=== PATIENT | male | born 1935 | race Caucasian/White ===

== ENCOUNTER → 2016-02-26 | Outpatient (CLI) | payer OTHER ==
[~2016-02-26] MED LIST: FERR325T18 PO; FRS/40 PO; GLC/500 PO; GLIP10TA9 PO; LISI-461 PO; METO25TA56 PO; MULT-506 PO; POTA-335 PO; SIMV20TA2 PO
== END | disposition home or self-care (01) ==
LOC: C.LABSPEC 12:31
PROVIDERS: ATTEND Internal Medicine
DX: R19.4 Change in bowel habit (principal)

== ENCOUNTER → 2016-06-11 | Outpatient (CLI) | payer OTHER ==
[2016-06-11 19:00] LABS: BLOOD UREA NITROGEN 20 mg/dl (7-18); BUN/CREATININE RATIO 20.6 (10-20); CALCIUM 8.8 mg/dl (8.5-10.1); CARBON DIOXIDE 27 mmol/L (21-32); CHLORIDE 106 mmol/L (98-107); CHOLESTEROL 95 mg/dl (0-200); CREATININE 0.95 mg/dl (0.60-1.40); GLUCOSE 125 mg/dl (70-99); POTASSIUM 4.2 mmol/L (3.5-5.1); SODIUM 140 mmol/L (136-145); TRIGLYCERIDES 83 mg/dl (0-150); VERY LOW DENSITY LIPOPROT CALC 17 mg/dl
[2016-06-11 19:10] LABS: CHOLESTEROL/HDL RATIO 2.3; HDL CHOLESTEROL 42 mg/dl
[2016-06-12 07:42] LABS: ESTIMATED AVERAGE GLUCOSE 137 mg/dl; HA1C FLAG Normal (Normal)
== END | disposition home or self-care (01) ==
LOC: C.LABSPEC 14:38
PROVIDERS: ATTEND Internal Medicine
DX: I10 Essential (primary) hypertension (principal); E11.9 Type 2 diabetes mellitus without complications; I25.10 Atherosclerotic heart disease of native coronary artery without angina pectoris; E78.5 Hyperlipidemia, unspecified

== ENCOUNTER → 2016-10-10 | Outpatient (CLI) | payer OTHER ==
[2016-10-10 12:50] LABS: ESTIMATED AVERAGE GLUCOSE 134 mg/dl; HA1C FLAG Normal (Normal)
[2016-10-10 12:54] LABS: ALT/SGPT 27 U/L (12-78); AST/SGOT 13 U/L (15-37); BLOOD UREA NITROGEN 16 mg/dl (7-18); BUN/CREATININE RATIO 16.3 (10-20); CALCIUM 8.9 mg/dl (8.5-10.1); CARBON DIOXIDE 26 mmol/L (21-32); CHLORIDE 108 mmol/L (98-107); GLUCOSE 135 mg/dl (70-99); POTASSIUM 4.3 mmol/L (3.5-5.1); SODIUM 140 mmol/L (136-145)
[2016-10-10 12:57] LABS: ALB/GLOB RATIO 1.1 (0.9-2); ALKALINE PHOSPHATASE 73 U/L (45-117)
== END | disposition home or self-care (01) ==
LOC: C.LABSPEC 12:12
PROVIDERS: ATTEND Internal Medicine
DX: I25.10 Atherosclerotic heart disease of native coronary artery without angina pectoris (principal); I10 Essential (primary) hypertension; E11.9 Type 2 diabetes mellitus without complications

== ENCOUNTER → 2017-02-10 | Outpatient (CLI) | payer OTHER ==
[2017-02-10 12:55] LABS: BASO % 0.2 %; BASO ABS # 0.01 K/uL (0-0.2); COMPLETE YES; EOS % 1.9 %; HEMATOCRIT 36.5 % (42-52); IG% 0.4 %; LYMPH % 12.6 %; LYMPH ABS # 0.65 K/uL (1.2-3.4); MEAN CORPUSCULAR HEMOGLOBIN 31.7 pg (25-34); MEAN CORPUSCULAR HGB CONC 34.8 g/dl (32-36); MEAN PLATELET VOLUME 9.7 fL (7.4-10.4); MONO % 7.4 %; NEUT % 77.5 %; PLATELET COUNT 138 K/uL (130-400); RED BLOOD COUNT 4.01 M/uL (4.7-6.1); WHITE BLOOD COUNT 5.16 K/uL (4.8-10.8)
[2017-02-10 13:06] LABS: BLOOD UREA NITROGEN 17 mg/dl (7-18); BUN/CREATININE RATIO 16.3 (10-20); CARBON DIOXIDE 26 mmol/L (21-32); CHLORIDE 105 mmol/L (98-107); CREATININE 1.07 mg/dl (0.60-1.40); ESTIMATED AVERAGE GLUCOSE 134 mg/dl; GLUCOSE 110 mg/dl (70-99); HA1C FLAG Normal (Normal); POTASSIUM 3.8 mmol/L (3.5-5.1); SODIUM 138 mmol/L (136-145)
[2017-02-10 13:09] LABS: CHOLESTEROL 100 mg/dl (0-200); CHOLESTEROL/HDL RATIO 2.5; HDL CHOLESTEROL 40 mg/dl; TRIGLYCERIDES 132 mg/dl (0-150); VERY LOW DENSITY LIPOPROT CALC 26 mg/dl
[2017-02-10 14:27] LABS: RATIO 334.8 mcg/mg (0-30.0)
== END | disposition home or self-care (01) ==
LOC: C.LABSPEC 12:30
PROVIDERS: ATTEND Internal Medicine
DX: E11.9 Type 2 diabetes mellitus without complications (principal); I25.10 Atherosclerotic heart disease of native coronary artery without angina pectoris; I10 Essential (primary) hypertension; E78.5 Hyperlipidemia, unspecified

== ENCOUNTER → 2017-04-23 | Outpatient (CLI) | payer OTHER | END | disposition home or self-care (01) | LOC: C.PATHSPEC 14:55 | PROVIDERS: ATTEND Internal Medicine | DX: L57.0 Actinic keratosis (principal); C44.92 Squamous cell carcinoma of skin, unspecified ==

== ENCOUNTER → 2017-05-14 | Outpatient (CLI) | payer OTHER ==
[2017-05-21 17:38] LABS: FECAL OCCULT BLOOD #1 NEGATIVE (NEGATIVE); FECAL OCCULT BLOOD #2 NEGATIVE (NEGATIVE); FECAL OCCULT BLOOD #3 POSITIVE (NEGATIVE)
== END | disposition home or self-care (01) ==
LOC: C.LABSPEC 16:41
PROVIDERS: ATTEND Internal Medicine
DX: Z12.11 Encounter for screening for malignant neoplasm of colon (principal)

== ENCOUNTER → 2017-06-15 | Outpatient (CLI) | payer OTHER ==
[2017-06-15 13:31] LABS: ALBUMIN 3.8 gm/dl (3.4-5.0); ALT/SGPT 25 U/L (12-78); AST/SGOT 14 U/L (15-37); BLOOD UREA NITROGEN 25 mg/dl (7-18); CALCIUM 8.9 mg/dl (8.5-10.1); CARBON DIOXIDE 24 mmol/L (21-32); CREATININE 1.07 mg/dl (0.60-1.40); GLUCOSE 137 mg/dl (70-99); POTASSIUM 4.2 mmol/L (3.5-5.1); SODIUM 137 mmol/L (136-145)
[2017-06-15 13:34] LABS: ALKALINE PHOSPHATASE 71 U/L (45-117); CHOLESTEROL 100 mg/dl (0-200); HEMOGLOBIN A1C 6.6 % (4.5-5.6); LDL CHOLESTEROL (DIRECT) 56 mg/dl; TOTAL PROTEIN 7.4 gm/dl (6.4-8.2)
== END | disposition home or self-care (01) ==
LOC: C.LABSPEC 12:22
PROVIDERS: ATTEND Internal Medicine
DX: I25.10 Atherosclerotic heart disease of native coronary artery without angina pectoris (principal); E78.5 Hyperlipidemia, unspecified; E11.9 Type 2 diabetes mellitus without complications; I10 Essential (primary) hypertension

== ENCOUNTER → 2017-10-15 | Outpatient (CLI) | payer OTHER ==
[2017-10-15 13:47] LABS: HEMOGLOBIN A1C 6.4 % (4.5-5.6)
[2017-10-15 15:20] LABS: BLOOD UREA NITROGEN 21 mg/dl (7-18); CALCIUM 8.8 mg/dl (8.5-10.1); CARBON DIOXIDE 25 mmol/L (21-32); CREATININE 1.15 mg/dl (0.60-1.40); GLUCOSE 149 mg/dl (70-99); POTASSIUM 4.3 mmol/L (3.5-5.1); SODIUM 137 mmol/L (136-145)
== END | disposition home or self-care (01) ==
LOC: C.LABSPEC 12:58
PROVIDERS: ATTEND Internal Medicine
DX: E11.9 Type 2 diabetes mellitus without complications (principal); I10 Essential (primary) hypertension; I25.10 Atherosclerotic heart disease of native coronary artery without angina pectoris

== ENCOUNTER 2021-01-17 16:58 | Observation (INO) ==
[2021-01-17] MEDS ORDERED: SODIUM CHLORIDE 0.9% 1000ML 250 ML IV ONE (17:28)
--- NOTE | 2021-01-17 17:34 | Emergency Department Note ---
Impression & Plan SOB (shortness of breath), Bilateral shoulder pain, Anemia, CAD (coronary atherosclerotic disease) ED Provider Note NAME: CHERYL DURHAM AGE: 85 SEX: M : 1935 ARRIVES VIA: Walk-In INFORMANT: [Patient][family] ED PROVIDER(S): [Shon Bradshaw MD] CHIEF COMPLAINT: Shortness of breath HISTORY OF PRESENT ILLNESS: The patient is an 85-year-old male with a history of coronary disease. He had a CABG x3 in 2007. The patient states that in the last month, maybe longer, he has had episodes with exertion where he gets short of breath, some ache across the shoulders that is a 5/10, he feels dizzy. When he rests, in a minute or so, the symptoms resolve. Today, he had an episode while helping around with cleanup after Thanksgiving dinner. He was brought to the hospital. He has no symptoms currently. The patient does believe that his episodes are increasing in number. He denies cough or congestion or fever. He is on diuretics for leg edema. He is taking his medications as prescribed. REVIEW OF SYSTEMS: See HPI for pertinent positives and negatives. A total of ten systems were reviewed and were otherwise negative. PMHx/PSHx: See Below SOCIAL HISTORY: See Below. PHYSICAL EXAM: GENERAL: Patient is in no acute distress. HEENT: No acute trauma, normocephalic atraumatic, mucous membranes moist, no nasal congestion, no scleral icterus. NECK: No stridor, no adenopathy, no meningismus, trachea is midline. LUNGS: Clear to auscultation bilaterally, no wheeze, no rhonchi, breath sounds equal. HEART: 4/6 systolic murmur, slightly irregular rhythm, normal rate. ABDOMEN: Soft, nontender, bowel sounds positive, no hernias, no peritonitis. EXTREMITIES: No cyanosis. There is bilateral pedal edema, worse on the right. No obvious acute lower extremity trauma. NEUROLOGIC: Oriented x 3, no acute motor or sensory deficits, no focal weakness. SKIN: No rash, no jaundice, no diaphoresis. Rectal: Brown stool, heme-negative. DIFFERENTIAL DIAGNOSIS: Cardiac ischemia, aortic dissection, pulmonary embolism, pneumothorax, pneumonia, pericarditis, myocarditis, esophageal rupture, GERD, cholecystitis, pancreatitis, musculoskeletal, as well as other pathologies. EMERGENCY DEPARTMENT COURSE/PROCEDURES: ECG: Indication was chest pain and shortness of breath. The ECG shows a sinus rhythm with a first-degree AV block. The rate is 81. PVCs are noted. There is a right bundle branch block. LVH is present. No ST elevation. There are inverted T waves in the lateral leads. The QTc is 490. Compared to an ECG from 28 December 2015, there is no significant change. Continuous Cardiac Monitoring: An order was placed for continuous cardiac monitoring. The monitor shows a rate of 72 with sinus rhythm with a first- degree AV block. MEDICAL DECISION MAKING: There is no leukocytosis. The patient does have an anemia with a hemoglobin of 9.4. A rectal exam was performed, the stool was brown and heme-negative. There is a slightly low platelet count at 114. No coagulopathy. Creatinine is high at 2.41. His creatinine has been running high lately. Glucose was somewhat elevated at 276. No worrisome liver enzyme elevation. No evidence for pancreatitis. ECG shows a sinus rhythm with a first-degree AV block. There is a right bundle branch block. His ECG looks similar to previous ECGs. Cardiac enzyme testing x2 was performed. The second troponin was elevated consistent with cardiac injury. Chest film showed some cardiomegaly, no CHF or pneumothorax. The patient received IV saline, 500 cc. He was given oral aspirin. The patient presents with some shortness of breath with exertion accompanied by some shoulder discomfort and lightheadedness. His symptoms resolved with rest. He has had these episodes ongoing for the last month. The patient was found to be anemic with an elevated troponin. Given his history, a hospital stay and further cardiac work-up is warranted. I did discussed the case with cardiology. Heparin was not felt indicated at this point as the patient was symptom-free. I spoke to the patient and case liner. The on-call hospitalist was consulted. Past Med/Surg History Medical History Coronary artery disease Diabetes Hypercholesterolemia Hypertension Subdural hematoma Surgical History (Updated 11/24/17 @ 00:36 by Tigre Dexter) History of heart bypass surgery Status post evacuation of subdural hematoma Social History Smoking Status: Former smoker Tobacco Type: Cigarettes Hx Alcohol Use: No Preferred Language: [place] marital status: current occupational status: employed and retired Feels Safe at Home: Yes Allergies Allergies Allergy/AdvReac Type Severity Reaction Status Date / Time No Known Allergies Allergy Mild NONE Verified 12/26/15 06:14 Home Meds Home Medications Medication Instructions Recorded Confirmed amlodipine 10 mg tablet 10 mg PO DAILY 01/17/21 01/17/21 finasteride 5 mg tablet 5 mg PO DAILY 01/17/21 01/17/21 furosemide 40 mg tablet 60 mg PO DAILY 01/17/21 01/17/21 glipizide 10 mg tablet 20 mg PO BID 01/17/21 01/17/21 lisinopril 10 mg tablet 10 mg PO BID 01/17/21 01/17/21 metformin 500 mg tablet 500 mg PO BID 01/17/21 01/17/21 metoprolol succinate 50 mg 50 mg PO DAILY 01/17/21 01/17/21 tablet,extended release 24 hr simvastatin 20 mg tablet 20 mg PO DAILY 01/17/21 01/17/21 spironolactone 25 mg tablet 25 mg PO DAILY 01/17/21 01/17/21 tamsulosin 0.4 mg capsule 0.4 mg PO DAILY 01/17/21 01/17/21 Results & Data (ED) Vital Signs Vital Signs - 24 hr 01/17/21 17:10 01/17/21 17:35 01/17/21 17:36 Temperature 36.6 C 36.9 C Temperature Source Oral Oral Pulse Rate 85 Pulse Rate [Apical] 81 Pulse Rate from SpO2 Sensor Pulse Rhythm Pulse Rhythm [Apical] Regular Pulse Strength [Apical] Normal Respiratory Rate 18 18 Respiratory Effort / Characteristics Non-Labored Spontaneous Respiratory Depth Normal Respiratory Pattern Regular Blood Pressure 95/54 L Blood Pressure [Right Arm] 99/52 L Blood Pressure Mean 67 Blood Pressure Mean [Right Arm] 67 Blood Pressure Position [Right Arm] Semi-fowlers Pulse Oximetry 100 99 99 Oxygen Delivery Method Room Air Room Air Room Air Oxygen Flow Rate 0 Sepsis Recent Fever Within 48 Hours No Sepsis New/Unexplained Change in Mental Status No Sepsis Action Taken by Nursing No Action Required 01/17/21 17:38 01/17/21 17:49 01/17/21 17:50 Temperature Temperature Source Pulse Rate 72 79 96 H Pulse Rate [Apical] Pulse Rate from SpO2 Sensor 81 76 Pulse Rhythm Regular Pulse Rhythm [Apical] Pulse Strength [Apical] Respiratory Rate 18 24 24 Respiratory Effort / Characteristics Respiratory Depth Respiratory Pattern Blood Pressure Blood Pressure [Right Arm] Blood Pressure Mean Blood Pressure Mean [Right Arm] Blood Pressure Position [Right Arm] Pulse Oximetry 99 99 99 Oxygen Delivery Method Room Air Oxygen Flow Rate 0 Sepsis Recent Fever Within 48 Hours Sepsis New/Unexplained Change in Mental Status Sepsis Action Taken by Nursing 01/17/21 18:00 01/17/21 18:10 01/17/21 18:20 Temperature Temperature Source Pulse Rate 83 80 78 Pulse Rate [Apical] Pulse Rate from SpO2 Sensor 82 83 74 Pulse Rhythm Pulse Rhythm [Apical] Pulse Strength [Apical] Respiratory Rate 24 23 24 Respiratory Effort / Characteristics Respiratory Depth Respiratory Pattern Blood Pressure 102/53 L Blood Pressure [Right Arm] Blood Pressure Mean 69 Blood Pressure Mean [Right Arm] Blood Pressure Position [Right Arm] Pulse Oximetry 99 98 99 Oxygen Delivery Method Oxygen Flow Rate Sepsis Recent Fever Within 48 Hours Sepsis New/Unexplained Change in Mental Status Sepsis Action Taken by Nursing 01/17/21 18:30 01/17/21 18:40 01/17/21 18:50 Temperature Temperature Source Pulse Rate 78 73 80 Pulse Rate [Apical] Pulse Rate from SpO2 Sensor 78 79 78 Pulse Rhythm Pulse Rhythm [Apical] Pulse Strength [Apical] Respiratory Rate 24 19 23 Respiratory Effort / Characteristics Respiratory Depth Respiratory Pattern Blood Pressure 126/62 Blood Pressure [Right Arm] Blood Pressure Mean 83 Blood Pressure Mean [Right Arm] Blood Pressure Position [Right Arm] Pulse Oximetry 98 98 98 Oxygen Delivery Method Oxygen Flow Rate Sepsis Recent Fever Within 48 Hours Sepsis New/Unexplained Change in Mental Status Sepsis Action Taken by Nursing 01/17/21 19:00 01/17/21 19:10 01/17/21 19:20 Temperature Temperature Source Pulse Rate 81 79 73 Pulse Rate [Apical] 82 Pulse Rate from SpO2 Sensor 82 77 77 Pulse Rhythm Pulse Rhythm [Apical] Regular Pulse Strength [Apical] Normal Respiratory Rate 22 22 21 Respiratory Effort / Characteristics Non-Labored Spontaneous Respiratory Depth Normal Respiratory Pattern Regular Blood Pressure 140/67 Blood Pressure [Right Arm] 140/67 Blood Pressure Mean 91 Blood Pressure Mean [Right Arm] 91 Blood Pressure Position [Right Arm] Semi-fowlers Pulse Oximetry 98 99 98 Oxygen Delivery Method Room Air Oxygen Flow Rate Sepsis Recent Fever Within 48 Hours Sepsis New/Unexplained Change in Mental Status Sepsis Action Taken by Nursing 01/17/21 19:30 01/17/21 19:40 01/17/21 19:50 Temperature Temperature Source Pulse Rate 82 87 84 Pulse Rate [Apical] Pulse Rate from SpO2 Sensor 80 82 82 Pulse Rhythm Pulse Rhythm [Apical] Pulse Strength [Apical] Respiratory Rate 21 25 H 26 H Respiratory Effort / Characteristics Respiratory Depth Respiratory Pattern Blood Pressure 125/73 Blood Pressure [Right Arm] Blood Pressure Mean 90 Blood Pressure Mean [Right Arm] Blood Pressure Position [Right Arm] Pulse Oximetry 98 97 98 Oxygen Delivery Method Oxygen Flow Rate Sepsis Recent Fever Within 48 Hours Sepsis New/Unexplained Change in Mental Status Sepsis Action Taken by Nursing 01/17/21 20:00 01/17/21 20:11 01/17/21 20:20 Temperature Temperature Source Pulse Rate 84 90 84 Pulse Rate [Apical] Pulse Rate from SpO2 Sensor 81 93 H 91 H Pulse Rhythm Pulse Rhythm [Apical] Pulse Strength [Apical] Respiratory Rate 22 22 14 Respiratory Effort / Characteristics Respiratory Depth Respiratory Pattern Blood Pressure 126/67 Blood Pressure [Right Arm] Blood Pressure Mean 86 Blood Pressure Mean [Right Arm] Blood Pressure Position [Right Arm] Pulse Oximetry 97 100 97 Oxygen Delivery Method Oxygen Flow Rate Sepsis Recent Fever Within 48 Hours Sepsis New/Unexplained Change in Mental Status Sepsis Action Taken by Nursing 01/17/21 20:30 01/17/21 20:40 01/17/21 20:50 Temperature Temperature Source Pulse Rate 83 84 83 Pulse Rate [Apical] Pulse Rate from SpO2 Sensor 82 87 84 Pulse Rhythm Pulse Rhythm [Apical] Pulse Strength [Apical] Respiratory Rate 21 19 19 Respiratory Effort / Characteristics Respiratory Depth Respiratory Pattern Blood Pressure 119/66 Blood Pressure [Right Arm] Blood Pressure Mean 83 Blood Pressure Mean [Right Arm] Blood Pressure Position [Right Arm] Pulse Oximetry 96 95 95 Oxygen Delivery Method Oxygen Flow Rate Sepsis Recent Fever Within 48 Hours Sepsis New/Unexplained Change in Mental Status Sepsis Action Taken by Nursing 01/17/21 21:00 01/17/21 21:10 01/17/21 21:20 Temperature Temperature Source Pulse Rate 86 85 81 Pulse Rate [Apical] Pulse Rate from SpO2 Sensor 81 83 83 Pulse Rhythm Pulse Rhythm [Apical] Pulse Strength [Apical] Respiratory Rate 22 16 17 Respiratory Effort / Characteristics Respiratory Depth Respiratory Pattern Blood Pressure 125/78 Blood Pressure [Right Arm] Blood Pressure Mean 93 Blood Pressure Mean [Right Arm] Blood Pressure Position [Right Arm] Pulse Oximetry 95 95 94 Oxygen Delivery Method Oxygen Flow Rate Sepsis Recent Fever Within 48 Hours Sepsis New/Unexplained Change in Mental Status Sepsis Action Taken by Nursing 01/17/21 21:30 01/17/21 21:40 01/17/21 21:50 Temperature Temperature Source Pulse Rate 85 85 86 Pulse Rate [Apical] Pulse Rate from SpO2 Sensor 89 83 81 Pulse Rhythm Pulse Rhythm [Apical] Pulse Strength [Apical] Respiratory Rate 18 20 19 Respiratory Effort / Characteristics Respiratory Depth Respiratory Pattern Blood Pressure 131/61 Blood Pressure [Right Arm] Blood Pressure Mean 84 Blood Pressure Mean [Right Arm] Blood Pressure Position [Right Arm] Pulse Oximetry 94 96 97 Oxygen Delivery Method Oxygen Flow Rate Sepsis Recent Fever Within 48 Hours Sepsis New/Unexplained Change in Mental Status Sepsis Action Taken by Nursing 01/17/21 22:00 01/17/21 22:10 01/17/21 22:20 Temperature Temperature Source Pulse Rate 84 86 85 Pulse Rate [Apical] Pulse Rate from SpO2 Sensor 83 84 83 Pulse Rhythm Pulse Rhythm [Apical] Pulse Strength [Apical] Respiratory Rate 18 22 16 Respiratory Effort / Characteristics Respiratory Depth Respiratory Pattern Blood Pressure 139/75 Blood Pressure [Right Arm] Blood Pressure Mean 96 Blood Pressure Mean [Right Arm] Blood Pressure Position [Right Arm] Pulse Oximetry 95 96 95 Oxygen Delivery Method Oxygen Flow Rate Sepsis Recent Fever Within 48 Hours Sepsis New/Unexplained Change in Mental Status Sepsis Action Taken by Nursing 01/17/21 22:30 01/17/21 22:40 01/17/21 22:50 Temperature Temperature Source Pulse Rate 85 85 84 Pulse Rate [Apical] Pulse Rate from SpO2 Sensor 86 84 85 Pulse Rhythm Pulse Rhythm [Apical] Pulse Strength [Apical] Respiratory Rate 20 17 19 Respiratory Effort / Characteristics Respiratory Depth Respiratory Pattern Blood Pressure 145/79 H Blood Pressure [Right Arm] Blood Pressure Mean 101 Blood Pressure Mean [Right Arm] Blood Pressure Position [Right Arm] Pulse Oximetry 98 96 98 Oxygen Delivery Method Oxygen Flow Rate Sepsis Recent Fever Within 48 Hours Sepsis New/Unexplained Change in Mental Status Sepsis Action Taken by Nursing 01/17/21 23:00 01/17/21 23:10 01/17/21 23:20 Temperature Temperature Source Pulse Rate 85 86 83 Pulse Rate [Apical] Pulse Rate from SpO2 Sensor 84 83 84 Pulse Rhythm Pulse Rhythm [Apical] Pulse Strength [Apical] Respiratory Rate 20 25 H 26 H Respiratory Effort / Characteristics Respiratory Depth Respiratory Pattern Blood Pressure 133/89 Blood Pressure [Right Arm] Blood Pressure Mean 103 Blood Pressure Mean [Right Arm] Blood Pressure Position [Right Arm] Pulse Oximetry 97 97 97 Oxygen Delivery Method Oxygen Flow Rate Sepsis Recent Fever Within 48 Hours Sepsis New/Unexplained Change in Mental Status Sepsis Action Taken by Nursing 01/17/21 23:30 01/17/21 23:40 01/17/21 23:50 Temperature Temperature Source Pulse Rate 83 87 93 H Pulse Rate [Apical] Pulse Rate from SpO2 Sensor 83 85 86 Pulse Rhythm Pulse Rhythm [Apical] Pulse Strength [Apical] Respiratory Rate 23 22 9 L Respiratory Effort / Characteristics Respiratory Depth Respiratory Pattern Blood Pressure 158/92 H Blood Pressure [Right Arm] Blood Pressure Mean 114 Blood Pressure Mean [Right Arm] Blood Pressure Position [Right Arm] Pulse Oximetry 97 97 96 Oxygen Delivery Method Oxygen Flow Rate Sepsis Recent Fever Within 48 Hours Sepsis New/Unexplained Change in Mental Status Sepsis Action Taken by Nursing 01/18/21 00:00 Temperature Temperature Source Pulse Rate 82 Pulse Rate [Apical] Pulse Rate from SpO2 Sensor 83 Pulse Rhythm Pulse Rhythm [Apical] Pulse Strength [Apical] Respiratory Rate 18 Respiratory Effort / Characteristics Respiratory Depth Respiratory Pattern Blood Pressure 140/79 Blood Pressure [Right Arm] Blood Pressure Mean 99 Blood Pressure Mean [Right Arm] Blood Pressure Position [Right Arm] Pulse Oximetry 95 Oxygen Delivery Method Oxygen Flow Rate Sepsis Recent Fever Within 48 Hours Sepsis New/Unexplained Change in Mental Status Sepsis Action Taken by [facility] Medications Current Medication List: was personally reviewed by me Laboratory Data Attestation: I reviewed the patient's lab results. Result diagrams: 01/17/21 18:08 01/17/21 18:08 Lab Results 01/17/21 01/17/21 01/17/21 Range/Units 18:08 18:08 18:08 WBC 5.44 (4.8-10.8) K/uL RBC 2.93 L (4.7-6.1) M/uL Hgb 9.4 L (14.0-18.0) g/dL Hct 27.8 L (42-52) % MCV 94.9 (80-100) fL MCH 32.1 (25-34) pg MCHC 33.8 (32-36) g/dL RDW Std Deviation 48.0 H (36.4-46.3) fL RDW Coeff of Jose A 14.0 (11.5-14.5) % Plt Count 114 L (130-400) K/uL MPV 9.7 (7.4-10.4) fL Immature Gran % (Auto) 0.6 % Neut % (Auto) 84.7 % Lymph % (Auto) 9.4 % Fergus % (Auto) 4.2 % Eos % (Auto) 0.9 % Baso % (Auto) 0.2 % Neut # (Auto) 4.61 (1.4-6.5) K/uL Lymph # (Auto) 0.51 L (1.2-3.4) K/uL Fergus # (Auto) 0.23 (0.11-0.59) K/uL Eos # (Auto) 0.05 (0-0.5) K/uL Baso # (Auto) 0.01 (0-0.2) K/uL Immature Gran # (Auto) 0.03 H (0.00-0.02) K/uL PT 10.4 (9.0-12.0) Seconds INR 1.0 (0.9-1.1) APTT 26.2 (21.0-31.0) Seconds PTT Ratio 1.0 Sodium 139 (136-145) mmol/L Potassium 4.9 (3.5-5.1) mmol/L Chloride 109 H (98-107) mmol/L Carbon Dioxide 21 (21-32) mmol/L Anion Gap 9.0 (3-11) BUN 45 H (7-18) mg/dl Creatinine 2.41 H (0.6-1.4) mg/dl Est Cr Clr Drug Dosing 24.1 ml/min Est GFR ( Amer) 27.3 ml/min Est GFR (Non-Af Amer) 23.6 ml/min BUN/Creatinine Ratio 18.8 (10-20) Glucose 276 H (70-99) mg/dl Calcium 7.6 L (8.5-10.1) mg/dl Magnesium 1.8 (1.8-2.4) mg/dl Total Bilirubin 0.8 (0.2-1) mg/dl AST 7 L (15-37) U/L ALT 15 (12-78) U/L Alkaline Phosphatase 75 (45-117) U/L Troponin I < 0.015 (0-0.045) ng/ml Total Protein 6.7 (6.4-8.2) gm/dl Albumin 3.1 L (3.4-5.0) gm/dl Globulin 3.6 (2.5-4.0) gm/dl Albumin/Globulin Ratio 0.9 (0.9-2) Lipase 131 (73-393) U/L SARS-CoV-2, RNA, NAAT (NEGATIVE) 01/17/21 01/17/21 Range/Units 21:45 22:45 WBC (4.8-10.8) K/uL RBC (4.7-6.1) M/uL Hgb (14.0-18.0) g/dL Hct (42-52) % MCV (80-100) fL MCH (25-34) pg MCHC (32-36) g/dL RDW Std Deviation (36.4-46.3) fL RDW Coeff of Jose A (11.5-14.5) % Plt Count (130-400) K/uL MPV (7.4-10.4) fL Immature Gran % (Auto) % Neut % (Auto) % Lymph % (Auto) % Fergus % (Auto) % Eos % (Auto) % Baso % (Auto) % Neut # (Auto) (1.4-6.5) K/uL Lymph # (Auto) (1.2-3.4) K/uL Fergus # (Auto) (0.11-0.59) K/uL Eos # (Auto) (0-0.5) K/uL Baso # (Auto) (0-0.2) K/uL Immature Gran # (Auto) (0.00-0.02) K/uL PT (9.0-12.0) Seconds INR (0.9-1.1) APTT (21.0-31.0) Seconds PTT Ratio Sodium (136-145) mmol/L Potassium (3.5-5.1) mmol/L Chloride (98-107) mmol/L Carbon Dioxide (21-32) mmol/L Anion Gap (3-11) BUN (7-18) mg/dl Creatinine (0.6-1.4) mg/dl Est Cr Clr Drug Dosing ml/min Est GFR ( Amer) ml/min Est GFR (Non-Af Amer) ml/min BUN/Creatinine Ratio (10-20) Glucose (70-99) mg/dl Calcium (8.5-10.1) mg/dl Magnesium (1.8-2.4) mg/dl Total Bilirubin (0.2-1) mg/dl AST (15-37) U/L ALT (12-78) U/L Alkaline Phosphatase (45-117) U/L Troponin I 0.072 H* (0-0.045) ng/ml Total Protein (6.4-8.2) gm/dl Albumin (3.4-5.0) gm/dl Globulin (2.5-4.0) gm/dl Albumin/Globulin Ratio (0.9-2) Lipase (73-393) U/L SARS-CoV-2, RNA, NAAT NEGATIVE (NEGATIVE) Administered Medications Discontinued Medications Aspirin (Aspirin Chew 324 Mg) 324 mg PO NOW STA Stop: 01/17/21 22:18 Last Admin: 01/17/21 22:45 Dose: 324 mg Documented by: [id number] Sodium Chloride (Nss 1000ml) 250 mls @ 999 mls/hr IV .Q16M ONE Stop: 01/17/21 17:43 Last Infusion: 01/17/21 19:07 Dose: 0 mls/hr Documented by: [id number] Admin: 01/17/21 18:13 Dose: 999 mls/hr Documented by: [id number] Sodium Chloride (Nss) 250 mls @ 999 mls/hr IV .Q16M ONE Stop: 01/17/21 19:00 Last Admin: 01/17/21 19:03 Dose: 999 mls/hr Documented by: [id number] Imaging Data Radiologist's Impression: Chest X-Ray 01/17/21 17:28 XR chest 1V portable CLINICAL HISTORY: Atypical chest pain. COMPARISON STUDY: Chest radiograph December 28, 2015 point FINDINGS: Lung volumes are normal. There is no pneumothorax or pleural effusion. Cardiomegaly is noted. Subtle interstitial prominence is likely chronic. There is no consolidation. There is no convincing evidence for pulmonary edema. IMPRESSION: No acute cardiopulmonary findings. ACT 112: Negative or not required by law. Electronically signed by: Dominick Helms M.D. 01/17/2021 5:52 PM Discharge Plan Visit Data Chief Complaint: Shortness of Breath/Dyspnea Stated Complaint: HARD TIME BREATHING - DIZZY - ED Provider: Shon Bradshaw Discharge Problem: SOB (shortness of breath), Bilateral shoulder pain, Anemia, CAD (coronary atherosclerotic disease) Patient Disposition: Admitted As Inpatient Condition: Fair Forms Stand Alone Forms: [facility] Prescriptions Prescriptions: No Action furosemide 40 mg tablet 60 mg PO DAILY RF: 0 metformin 500 mg tablet 500 mg PO BID RF: 0 metoprolol succinate 50 mg tablet extended release 24 hr 50 mg PO DAILY RF: 0 glipizide 10 mg tablet 20 mg PO BID RF: 0 spironolactone 25 mg tablet 25 mg PO DAILY RF: 0 tamsulosin 0.4 mg capsule 0.4 mg PO DAILY RF: 0 amlodipine 10 mg tablet 10 mg PO DAILY RF: 0 simvastatin 20 mg tablet 20 mg PO DAILY RF: 0 lisinopril 10 mg tablet 10 mg PO BID RF: 0 finasteride 5 mg tablet 5 mg PO DAILY RF: 0 Referrals Referrals: Robert Quinones MD [Primary Care Provider] -
--- NOTE | 2021-01-17 17:54 | XRay Report ---
XR chest 1V portable CLINICAL HISTORY: Atypical chest pain. COMPARISON STUDY: Chest radiograph December 28, 2015 point FINDINGS: Lung volumes are normal. There is no pneumothorax or pleural effusion. Cardiomegaly is note d. Subtle interstitial prominence is likely chronic. There is no consolidation. There is no convincin g evidence for pulmonary edema. IMPRESSION: No acute cardiopulmonary findings. ACT 112: Negative or not required by law. Electronically signed by: Dominick Helms M.D. 01/17/2021 5:52 PM
[2021-01-17 18:21] LABS: Basophils # (auto) 0.01 K/uL (0-0.2); Basophils % (auto) 0.2 %; Eosinophils # (auto) 0.05 K/uL (0-0.5); Eosinophils % (auto) 0.9 %; Hematocrit (blood only) 27.8 % (42-52); Hemoglobin 9.4 g/dL (14.0-18.0); Immature Granulocytes # (auto) 0.03 K/uL (0.00-0.02); Immature Granulocytes % (auto) 0.6 %; Lymphocytes # (auto) 0.51 K/uL (1.2-3.4); Lymphocytes % (auto) 9.4 %; Mean Corpuscular Hemoglobin 32.1 pg (25-34); Mean Corpuscular Hgb Conc 33.8 g/dL (32-36); Mean Corpuscular Volume 94.9 fL (80-100); Mean Platelet Volume 9.7 fL (7.4-10.4); Monocytes # (auto) 0.23 K/uL (0.11-0.59); Monocytes % (auto) 4.2 %; Neutrophils # (auto) 4.61 K/uL (1.4-6.5); Neutrophils % (auto) 84.7 %; Platelet Count 114 K/uL (130-400); Red Blood Count 2.93 M/uL (4.7-6.1); White Blood Count 5.44 K/uL (4.8-10.8)
[2021-01-17 18:32] LABS: Partial Thromboplastin Time 26.2 Seconds (21.0-31.0); Prothrombin Time 10.4 Seconds (9.0-12.0)
[2021-01-17 18:40] LABS: Alanine Aminotransferase 15 U/L (12-78); Albumin Level 3.1 gm/dl (3.4-5.0); Aspartate Aminotransferase 7 U/L (15-37); BUN Creatinine Ratio 18.8 (10-20); Blood Urea Nitrogen 45 mg/dl (7-18); Calcium 7.6 mg/dl (8.5-10.1); Carbon Dioxide 21 mmol/L (21-32); Chloride 109 mmol/L (98-107); Creatinine Clr Calc Pharmacy 24.1 ml/min; Est GFR (African American) 27.3 ml/min; Est GFR (Non-African American) 23.6 ml/min; Glucose 276 mg/dl (70-99); Lipase 131 U/L (73-393); Magnesium 1.8 mg/dl (1.8-2.4); Potassium 4.9 mmol/L (3.5-5.1); Sodium 139 mmol/L (136-145)
[2021-01-17 18:45] LABS: Albumin Globulin Ratio 0.9 (0.9-2); Alkaline Phosphatase 75 U/L (45-117); Bilirubin,Total 0.8 mg/dl (0.2-1); Globulin 3.6 gm/dl (2.5-4.0); Total Protein 6.7 gm/dl (6.4-8.2); Troponin I < 0.015 ng/ml (0-0.045)
[2021-01-17] MEDS ORDERED: SODIUM CHLORIDE 0.9% 250 ML IV ONE (18:45)
[2021-01-17] MEDS ORDERED: ASPIRIN CHEW 324 MG PO STA (22:17)
--- NOTE | 2021-01-17 23:50 | History & Physical Report ---
Date of Service January 17, 2021 Assessment & Plan (1) CAD (coronary atherosclerotic disease): Plan: Elevated troponin/CAD/hypertension/status post CABG/bilateral shoulder pain- The patient will be admitted to telemetry for serial cardiac enzymes, serial EKG's, cardiac rhythm monitoring and a 2-D echocardiogram with Dopplers. Troponin 0.072 upon admission Continue amlodipine, and metoprolol succinate (2) Elevated troponin I level: Plan: See above (3) Hypertension: Plan: See above (4) Hypercholesterolemia: Plan: Continue simvastatin Check a fasting lipid panel (5) Diabetes: Plan: Hold glipizide and Metformin Place on Accu-Cheks before meals and at bedtime with NovoLog coverage per scale Check hemoglobin A1c (6) H/O heart bypass surgery: Plan: See above (7) Acute kidney injury: Plan: Creatinine 2.41 upon admission, with base 1.33 on 07/02. More recent after increased diuretics in outpatient setting with 2.48-2.46 Will hold lisinopril and spironolactone at this time. Received 500 cc normal saline in the ED, and will be given in the 500 cc at 80 m ils per hour upon admission repeat laboratories in a.m. May consider decreasing amlodipine from 10 to 5 mg if affecting lower extremity edema (8) BPH w urinary obs/LUTS: Plan: Continue tamsulosin (9) Lower extremity edema: Plan: Patient has asymmetric lower extremity size, right larger diameter than left. This has been investigated in the past with negative venous Dopplers on 07/12/2020 (10) Bilateral shoulder pain: Plan: See above History of Present Illness Chief Complaint: The patient presents to the emergency department with complaint of intermittent pain across both shoulders, relieved by rest, over the past month, that occurred while cleaning up after Thanksgiving dinner, and was brought to the ED for as sessment Primary Care Provider: Robert Quinones MD The patient is an 85-year-old male with a past medical history including CAD, hypertension, status post CABG, BPH with LUTS, diabetes mellitus, hyperlipidemia and right greater than left lower extremity edema. He is brought to the emergency department after having a recurrence of bilateral shoulder pain with associated dizziness. Abnormal laboratories: Hemoglobin 9.4, hematocrit 27.8, platelets 114, creatinine 2.41, glucose 276, BUN 45, albumin 3.1 and troponin 0.072. EKG shows normal sinus rhythm with right bundle branch block and left axis deviation Chest x-ray shows no acute findings In the emergency department patient received NSS 250 mils x2, and aspirin 324 mg Allergies Allergy/AdvReac Type Severity Reaction Status Date / Time No Known Allergies Allergy Mild NONE Verified 12/26/15 06:14 Home Medications Medication Instructions Recorded Confirmed Type amlodipine 10 mg tablet 10 mg PO DAILY 01/17/21 01/17/21 History finasteride 5 mg tablet 5 mg PO DAILY 01/17/21 01/17/21 History furosemide 40 mg tablet 60 mg PO DAILY 01/17/21 01/17/21 History glipizide 10 mg tablet 20 mg PO BID 01/17/21 01/17/21 History lisinopril 10 mg tablet 10 mg PO BID 01/17/21 01/17/21 History metformin 500 mg tablet 500 mg PO BID 01/17/21 01/17/21 History metoprolol succinate 50 mg 50 mg PO DAILY 01/17/21 01/17/21 History tablet,extended release 24 hr simvastatin 20 mg tablet 20 mg PO DAILY 01/17/21 01/17/21 History spironolactone 25 mg tablet 25 mg PO DAILY 01/17/21 01/17/21 History tamsulosin 0.4 mg capsule 0.4 mg PO DAILY 01/17/21 01/17/21 History Past Med/Surg History Medical History (Updated 01/18/21 @ 02:09 by Jaison Aguirre MD) BPH w urinary obs/LUTS Coronary artery disease Diabetes Hypercholesterolemia Hypertension Lower extremity edema Subdural hematoma Surgical History (Updated 11/24/17 @ 00:36 by Tigre Dexter) History of heart bypass surgery Status post evacuation of subdural hematoma Social History Smoking Status: Former smoker Tobacco Type: Cigarettes Hx Alcohol Use: No Preferred Language: [place] marital status: current occupational status: employed and retired Feels Safe at Home: Yes Review of Systems Review of Systems: The patient denies chest pain, palpitations, cough, sore throat, fevers, chills, sweats, nausea, vomiting, diarrhea , constipation, abdominal pain, pelvic pain, blood in urine or stool, dysuria, urinary frequency or urgency, lightheadedness, dizziness, headache, memory loss, loss of consciousness, rash, abnormal bruising or bleeding, focal weakness, numbness or tingling in arms or legs, generalized arthralgias or myalgias, back or neck pain, or night sweats. The review of systems is otherwise negative other than for that already noted above, and at least 10 systems have been reviewed. Physical Exam Physical Exam: The patient is awake, alert and oriented 3, well developed and well nourished, normocephalic and atraumatic, lying in bed and in no acute distress. HEENT--PERRL, EOMI, mucous membranes and oropharynx normal. Neck--supple. No JVD. No bruits. Thyroid normal, trachea midline, no adenopathy. Heart--normal S1 and S2. No murmurs, rubs or gallops. Lungs--clear bilaterally, no respiratory distress, no accessory muscle use. Abdomen--normal bowel sounds and soft. Nontender. Nondistended. Obese Extremities--no cyanosis or clubbing. 1+ right lower extremity pretibial edema. Left lower extremity with trace pretibial pitting edema. Right lower extremity below-knee 1 1/2 times the size of left Dermatologic--normal skin turgor, normal color, no abnormal lymph nodes, no rash. Neurologic--cranial nerves II through XII grossly intact. Rheumatologic--normal range of motion. Psychiatric--normal affect. Results & Data Results & Data ([facility]) Vital Signs (Past 12 Hours) Vital Signs Temp Pulse Pulse Resp BP BP Pulse Ox 01/17/21 22:50 84 19 98 01/17/21 22:40 85 17 96 01/17/21 22:30 85 20 145/79 H 98 01/17/21 22:20 85 16 95 01/17/21 22:10 86 22 96 01/17/21 22:00 84 18 139/75 95 01/17/21 21:50 86 19 97 01/17/21 21:40 85 20 96 01/17/21 21:30 85 18 131/61 94 01/17/21 21:20 81 17 94 01/17/21 21:10 85 16 95 01/17/21 21:00 86 22 125/78 95 01/17/21 20:50 83 19 95 01/17/21 20:40 84 19 95 01/17/21 20:30 83 21 119/66 96 01/17/21 20:20 84 14 97 01/17/21 20:11 90 22 100 01/17/21 20:00 84 22 126/67 97 01/17/21 19:50 84 26 H 98 01/17/21 19:40 87 25 H 97 01/17/21 19:30 82 21 125/73 98 01/17/21 19:20 73 21 98 01/17/21 19:10 79 22 99 01/17/21 19:00 81 82 22 140/67 140/67 98 01/17/21 18:50 80 23 98 01/17/21 18:40 73 19 98 01/17/21 18:30 78 24 126/62 98 01/17/21 18:20 78 24 99 01/17/21 18:10 80 23 98 01/17/21 18:00 83 24 102/53 L 99 01/17/21 17:50 96 H 24 99 01/17/21 17:49 79 24 99 01/17/21 17:38 72 18 99 01/17/21 17:36 36.9 C 81 18 99/52 L 99 01/17/21 17:35 99 01/17/21 17:10 36.6 C 85 18 95/54 L 100 Laboratory Results Laboratory Results WBC 5.44 K/uL (4.8-10.8) 01/17/21 18:08 RBC 2.93 M/uL (4.7-6.1) L 01/17/21 18:08 Hgb 9.4 g/dL (14.0-18.0) L 01/17/21 18:08 Hct 27.8 % (42-52) L 01/17/21 18:08 MCV 94.9 fL (80-100) 01/17/21 18:08 MCH 32.1 pg (25-34) 01/17/21 18:08 MCHC 33.8 g/dL (32-36) 01/17/21 18:08 RDW Std Deviation 48.0 fL (36.4-46.3) H 01/17/21 18:08 RDW Coeff of Jose A 14.0 % (11.5-14.5) 01/17/21 18:08 Plt Count 114 K/uL (130-400) L 01/17/21 18:08 MPV 9.7 fL (7.4-10.4) 01/17/21 18:08 Immature Gran % (Auto) 0.6 % 01/17/21 18:08 Neut % (Auto) 84.7 % 01/17/21 18:08 Lymph % (Auto) 9.4 % 01/17/21 18:08 [place] % (Auto) 4.2 % 01/17/21 18:08 Eos % (Auto) 0.9 % 01/17/21 18:08 Baso % (Auto) 0.2 % 01/17/21 18:08 Neut # (Auto) 4.61 K/uL (1.4-6.5) 01/17/21 18:08 Lymph # (Auto) 0.51 K/uL (1.2-3.4) L 01/17/21 18:08 [place] # (Auto) 0.23 K/uL (0.11-0.59) 01/17/21 18:08 Eos # (Auto) 0.05 K/uL (0-0.5) 01/17/21 18:08 Baso # (Auto) 0.01 K/uL (0-0.2) 01/17/21 18:08 Immature Gran # (Auto) 0.03 K/uL (0.00-0.02) H 01/17/21 18:08 PT 10.4 Seconds (9.0-12.0) 01/17/21 18:08 INR 1.0 (0.9-1.1) 01/17/21 18:08 APTT 26.2 Seconds (21.0-31.0) 01/17/21 18:08 PTT Ratio 1.0 01/17/21 18:08 Sodium 139 mmol/L (136-145) 01/17/21 18:08 Potassium 4.9 mmol/L (3.5-5.1) 01/17/21 18:08 Chloride 109 mmol/L (98-107) H 01/17/21 18:08 Carbon Dioxide 21 mmol/L (21-32) 01/17/21 18:08 Anion Gap 9.0 (3-11) 01/17/21 18:08 BUN 45 mg/dl (7-18) H 01/17/21 18:08 Creatinine 2.41 mg/dl (0.6-1.4) H 01/17/21 18:08 Est Cr Clr Drug Dosing 24.1 ml/min 01/17/21 18:08 Est GFR ( Amer) 27.3 ml/min 01/17/21 18:08 Est GFR (Non-Af Amer) 23.6 ml/min 01/17/21 18:08 BUN/Creatinine Ratio 18.8 (10-20) 01/17/21 18:08 Glucose 276 mg/dl (70-99) H 01/17/21 18:08 Calcium 7.6 mg/dl (8.5-10.1) L 01/17/21 18:08 Magnesium 1.8 mg/dl (1.8-2.4) 01/17/21 18:08 Total Bilirubin 0.8 mg/dl (0.2-1) 01/17/21 18:08 AST 7 U/L (15-37) L 01/17/21 18:08 ALT 15 U/L (12-78) 01/17/21 18:08 Alkaline Phosphatase 75 U/L (45-117) 01/17/21 18:08 Troponin I 0.072 ng/ml (0-0.045) H* 01/17/21 21:45 Total Protein 6.7 gm/dl (6.4-8.2) 01/17/21 18:08 Albumin 3.1 gm/dl (3.4-5.0) L 01/17/21 18:08 Globulin 3.6 gm/dl (2.5-4.0) 01/17/21 18:08 Albumin/Globulin Ratio 0.9 (0.9-2) 01/17/21 18:08 Lipase 131 U/L (73-393) 01/17/21 18:08 SARS-CoV-2, RNA, NAAT NEGATIVE (NEGATIVE) 01/17/21 22:45 Impressions Chest X-Ray 01/17/21 17:28 XR chest 1V portable CLINICAL HISTORY: Atypical chest pain. COMPARISON STUDY: Chest radiograph December 28, 2015 point FINDINGS: Lung volumes are normal. There is no pneumothorax or pleural effusion. Cardiomegaly is noted. Subtle interstitial prominence is likely chronic. There is no consolidation. There is no convincing evidence for pulmonary edema. IMPRESSION: No acute cardiopulmonary findings. ACT 112: Negative or not required by law. Electronically signed by: Dominick Helms M.D. 01/17/2021 5:52 PM Code Status & VTE Plan Code Status Full code VTE Prophylaxis Plan VTE Prophylaxis will be ordered: Yes PG Care Time/CCT Total # of Minutes Spent Total Time Spent with Patient: Total time spent is greater than 50% in coordination of care (as documented) at patient's floor/unit and/or counseling patient: Coding Level of Care Code INT OBSERVATION CARE 70M LVL 3 Diagnoses CAD (coronary atherosclerotic disease) I25.810 Associated angina: unspecified whether angina present Coronary Disease-Associated Artery/Lesion type: bypass graft [place] vs. transplanted heart: [place] heart Elevated troponin I level R77.8 Hypertension I10 Hypercholesterolemia E78.00 Diabetes E11.9 H/O heart bypass surgery Z95.1 BPH w urinary obs/LUTS N40.1; N13.8 Lower extremity edema R60.0 Bilateral shoulder pain M25.511; M25.512 Chronicity: acute Acute kidney injury N17.9 (1) CAD (coronary atherosclerotic disease) Associated angina: unspecified whether angina present Coronary Disease- Associated Artery/Lesion type: bypass graft [place] vs. transplanted heart: [place] heart Qualified Code(s): I25.810 - Atherosclerosis of coronary artery bypass graft(s) without angina pectoris (2) Bilateral shoulder pain Chronicity: acute Qualified Code(s): M25.511 - Pain in right shoulder; M25.512 - Pain in left shoulder
[2021-01-18] MEDS ORDERED: NITROGLYCERIN SL 0.4 MG/TAB TAB SL PRN (02:08)
[2021-01-18] MEDS ORDERED: ACETAMINOPHEN 325 MG TAB PO PRN (02:08)
[2021-01-18] MEDS ORDERED: SODIUM CHLORIDE 0.9% 500 ML IV SCH (02:08)
[2021-01-18] MEDS ORDERED: GLUCOSE 10 TABS/TUBE PO PRN (02:08)
[2021-01-18] MEDS ORDERED: ONDANSETRON INJ 2 MG/ML 2 ML VIAL IV PRN (02:08)
[2021-01-18] MEDS ORDERED: CARBOHYDRATES FOR HYPOGLYCEMIA PO PRN (02:08)
[2021-01-18] MEDS ORDERED: GLUCOSE 40% GEL 15 GM TUBE PO PRN (02:08)
[2021-01-18] MEDS ORDERED: GLUCAGON FOR INJ 1 MG VIAL SQ PRN (02:08)
[2021-01-18] MEDS ORDERED: DEXTROSE 50% 50 ML SYRINGE IV PRN (02:08)
[2021-01-18] MEDS: INSULIN ASPART 100 UNITS/ML 3 ML PEN SC SCH ×5 (03:44→21:56)
[2021-01-18 06:30] LABS: Basophils # (auto) 0.01 K/uL (0-0.2); Basophils % (auto) 0.2 %; Eosinophils # (auto) 0.09 K/uL (0-0.5); Eosinophils % (auto) 2.2 %; Hemoglobin 9.3 g/dL (14.0-18.0); Immature Granulocytes # (auto) 0.02 K/uL (0.00-0.02); Immature Granulocytes % (auto) 0.5 %; Lymphocytes # (auto) 0.69 K/uL (1.2-3.4); Lymphocytes % (auto) 16.9 %; Mean Corpuscular Hemoglobin 32.1 pg (25-34); Mean Corpuscular Hgb Conc 34.4 g/dL (32-36); Mean Corpuscular Volume 93.1 fL (80-100); Mean Platelet Volume 9.3 fL (7.4-10.4); Monocytes # (auto) 0.29 K/uL (0.11-0.59); Monocytes % (auto) 7.1 %; Neutrophils # (auto) 2.99 K/uL (1.4-6.5); Neutrophils % (auto) 73.1 %; Platelet Count 122 K/uL (130-400); RDW Coefficient of Variation 13.9 % (11.5-14.5); RDW Standard Deviation 47.1 fL (36.4-46.3); White Blood Count 4.09 K/uL (4.8-10.8)
[2021-01-18 07:07] LABS: Albumin Level 2.9 gm/dl (3.4-5.0); BUN Creatinine Ratio 21.1 (10-20); Calcium 8.3 mg/dl (8.5-10.1); Creatinine Clr Calc Pharmacy 36.8 ml/min; Est GFR (African American) 45.6 ml/min; Est GFR (Non-African American) 39.3 ml/min; Magnesium 2.1 mg/dl (1.8-2.4); Potassium 4.2 mmol/L (3.5-5.1)
[2021-01-18 07:12] LABS: Estimated Average Glucose 192 mg/dl; Hemoglobin A1C 8.3 % (4.5-5.6)
--- NOTE | 2021-01-18 07:39 | Electrocardiogram Report ---
Test Reason : Blood Pressure : / mmHG Vent. Rate : 081 BPM Atrial Rate : 081 BPM P-R Int : 280 ms QRS Dur : 114 ms QT Int : 422 ms P-R-T Axes : 062 -51 092 degrees QTc Int : 490 ms Sinus rhythm with 1st degree A-V block Left axis deviation Incomplete right bundle branch block Voltage criteria for left ventricular hypertrophy Anterior infarct , age undetermined Abnormal ECG Confirmed by Cali Rodriguez ([id number]) on 01/18/2021 7:39:28 AM Referred By: REFERRED SELF Confirmed By:Fernando Rodriguez
[2021-01-18 07:42] LABS: Albumin Globulin Ratio 0.8 (0.9-2); Globulin 3.5 gm/dl (2.5-4.0); Total Protein 6.4 gm/dl (6.4-8.2); Troponin I 0.216 ng/ml (0-0.045)
[2021-01-18] MEDS: amLODIPine BESYLATE 5 MG TAB PO SCH (09:22)
[2021-01-18] MEDS: FINASTERIDE 5 MG TAB PO SCH (09:23)
[2021-01-18] MEDS: FUROSEMIDE 20 MG TAB PO SCH (09:23)
[2021-01-18] MEDS: METOPROLOL SUCC 50MG EXT REL TAB PO SCH (09:24)
[2021-01-18] MEDS: SIMVASTATIN 20 MG TAB PO SCH (09:25)
[2021-01-18] MEDS: TAMSULOSIN HCL 0.4 MG CAP PO SCH (09:27)
--- NOTE | 2021-01-18 09:49 | Hospitalist Progress Note ---
Date of Service January 18, 2021 Assessment & Plan (1) CAD (coronary atherosclerotic disease): Plan: History of CABG 2007- remains on BB, low dose zocor, BREANA, and diuetics- He was not on ASA he reports he used to be but stopped it around the time of his rectal bleeding/colon cancer workup The patient will be admitted to telemetry for serial cardiac enzymes, serial EKG's, cardiac rhythm monitoring and a 2-D echocardiogram with Dopplers. Troponin 0.072 upon admission--->0.216--> 0.118 remains symptom free at this time- - ASA 81 mg daily started - ECHO and Troponin trends - NPO until ECHO and Troponin completed- discussed with cards. NPO after midnight Continue amlodipine, and metoprolol succinate - Will hydrate overnight with LR 80ml/hr for one liter- in preparation for possible cardiac angiography (2) Dyspnea: Plan: Dyspnea with exertion - DDX- valve abnormality- systolic murmur - vs. cardiac ischemia or both - ECHO as above - Appreciate cardiology assitance (3) Elevated troponin I level: Plan: See above rule out NSTEMI - Has peaked and downtrending- So likley type II NSTEMI secondary to dyspnea and stress - As above Valve vs. myocardial ischemia (4) Hypertension: Plan: See above (5) Hypercholesterolemia: Plan: Continue simvastatin Check a fasting lipid panel (6) Diabetes: Plan: Hold glipizide and Metformin Place on Accu-Cheks before meals and at bedtime with NovoLog coverage per scale Check hemoglobin A1c (7) H/O heart bypass surgery: Plan: See above- 2018 (8) Acute kidney injury: Plan: Creatinine 2.41 upon admission, with base 1.33 on 07/02. More recent after increased diuretics in outpatient setting with 2.48-2.46 - IMPROVEMENT RN return to baseline this morning 1.58- continue to hold BREANA and diuretics for today Received 500 cc normal saline in the ED, and will be given in the 500 cc at 80 mils per hour upon admission repeat laboratories in a.m. May consider decreasing amlodipine from 10 to 5 mg if affecting lower extremity edema (9) BPH w urinary obs/LUTS: Plan: Continue tamsulosin (10) Lower extremity edema: Plan: Patient has asymmetric lower extremity size, right larger diameter than left. This has been investigated in the past with negative venous Dopplers on 07/12/2020 (11) Bilateral shoulder pain: Plan: See above- ? anginal equivalent associated with dyspnea and activity - Continue workup and risk stratification from cardiac standpoint. 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 I agree with the plan above. Subjective 85 YOM HD #1 for evaluation of shortness of breath and bilateral shoulder pain. The patient has a history of CABG in 2007 following a failed stress test during the work up for his colon cancer at that time. Patient does not routinely follow with cardiology. The patient shortness of breath and shoulder pain occurred yesterday while he was trying to get stuff organized for the arrival of his daughter to go see his at [place] (she just broke her hip). It occurred while he was up and moving around and it lasted until he came to the EMD. The pain has not reoccurred. The patient endorses that he has had this pain prior over the past couple of months and it is always associated with some dyspnea. He has been more active at home since his is at [place]- he is going up and down the steps more and carrying more things around the house. He does note that he is dyspneic up and down the steps. He has had 2 sets of Troponin I since admission .072-.216. His ECG remains with 1st degree AV, RBBB with LVH and left axis- with some mild st and t wave changes latero-anterior. His morning ECG is being obtained at this time. Plans: ECHO, Troponin I at noon, Cardiology consult- will make NPO at this time until next troponin returns and ECHO is done. Review of Systems Review of Systems: REVIEW OF SYSTEMS: Constitutional: No fever, sweats or chills Eyes: No diplopia, no worsening or blurred vision ENT: normal hearing, no trouble swallowing Respiratory: (+) dyspnea with exertion, NO cough, sputum, Cardiovascular: (+) shoulder pain bilateral- none since admission, No palpitations Abdomen: No pain, nausea, vomiting, diarrhea or constipation Musculoskeletal: No joint pain, calf pain, swelling Neurologic: No weakness, numbness/tingling, or balance problems Psychiatric: No anxiety or depression Skin: Biopsy site at top of head and ears by derm Physical Exam Physical Exam: PHYSICAL EXAM: General: awake, alert, no apparent distress Head: Normocephalic, atraumatic ENT: PERRL, EOMI, no pharyngeal exudate, mucous membranes moist Neuro: AAO x 3, speech clear and appropriate, strength intact bilaterally 5/5, sensation intact and equal all extremities and dermatomes, no pronator drift Chest: equal rise and fall of the chest, no accessory muscle use, no heaves or thrills, Clear to auscultation, on room air, Cardiac: Regular rate and rhythm, telemetry reviewed-1st degree AV with PACs, skin warm dry, cap refill <3 seconds, peripheral pulses +2 no JVD, Grade II-III systolic murmur RSB mild LSB grade I, +1 edema to lower extremities GI: NABS x 4 quadrants, soft, nontender to palpation, no rebound, guarding or tenderness : Spontaneously voiding, no pain, no CVA tenderness, Extremities: Normal inspection, no peripheral edema or erythema, calfs nontender to palpation Psych: Normal mood and affect Skin: dressing to top of head from skin biopsy site Results & Data Results & Data ([facility]) Vital Signs (Past 12 Hours) Vital Signs Temp Pulse Pulse Resp BP BP Pulse Ox 01/18/21 05:13 73 18 129/70 95 01/18/21 02:17 01/18/21 02:16 36.7 C 82 14 136/61 95 01/18/21 01:50 82 17 95 01/18/21 01:40 81 18 94 01/18/21 01:30 76 19 122/69 97 01/18/21 01:20 75 19 94 01/18/21 01:10 99 H 24 98 01/18/21 01:00 87 27 H 01/18/21 00:50 83 18 95 01/18/21 00:40 77 16 94 01/18/21 00:30 83 21 136/94 96 01/18/21 00:20 85 19 94 01/18/21 00:10 77 16 95 01/18/21 00:00 82 18 140/79 95 01/17/21 23:50 93 H 9 L 96 01/17/21 23:40 87 22 97 01/17/21 23:30 83 23 158/92 H 97 01/17/21 23:20 83 26 H 97 01/17/21 23:10 86 25 H 97 01/17/21 23:00 85 20 133/89 97 01/17/21 22:50 84 19 98 01/17/21 22:40 85 17 96 01/17/21 22:30 85 20 145/79 H 98 01/17/21 22:20 85 16 95 01/17/21 22:10 86 22 96 01/17/21 22:00 84 18 139/75 95 01/17/21 21:50 86 19 97 01/17/21 21:40 85 20 96 Pulse Ox 01/18/21 05:13 01/18/21 02:17 95 01/18/21 02:16 01/18/21 01:50 01/18/21 01:40 01/18/21 01:30 01/18/21 01:20 01/18/21 01:10 01/18/21 01:00 01/18/21 00:50 01/18/21 00:40 01/18/21 00:30 01/18/21 00:20 01/18/21 00:10 01/18/21 00:00 01/17/21 23:50 01/17/21 23:40 01/17/21 23:30 01/17/21 23:20 01/17/21 23:10 01/17/21 23:00 01/17/21 22:50 01/17/21 22:40 01/17/21 22:30 01/17/21 22:20 01/17/21 22:10 01/17/21 22:00 01/17/21 21:50 01/17/21 21:40 Laboratory Results Abnormal lab results 01/17/21 01/17/21 01/17/21 Range/Units 18:08 18:08 21:45 WBC (4.8-10.8) K/uL RBC 2.93 L (4.7-6.1) M/uL Hgb 9.4 L (14.0-18.0) g/dL Hct 27.8 L (42-52) % RDW Std Deviation 48.0 H (36.4-46.3) fL Plt Count 114 L (130-400) K/uL Lymph # (Auto) 0.51 L (1.2-3.4) K/uL Immature Gran # (Auto) 0.03 H (0.00-0.02) K/uL Chloride 109 H (98-107) mmol/L BUN 45 H (7-18) mg/dl Creatinine 2.41 H (0.6-1.4) mg/dl BUN/Creatinine Ratio (10-20) Glucose 276 H (70-99) mg/dl POC Glucose (70-99) mg/dl Hemoglobin A1c (4.5-5.6) % Calcium 7.6 L (8.5-10.1) mg/dl AST 7 L (15-37) U/L Troponin I 0.072 H* (0-0.045) ng/ml Albumin 3.1 L (3.4-5.0) gm/dl Albumin/Globulin Ratio (0.9-2) 01/18/21 01/18/21 01/18/21 Range/Units 02:50 06:11 06:11 WBC 4.09 L (4.8-10.8) K/uL RBC 2.90 L (4.7-6.1) M/uL Hgb 9.3 L (14.0-18.0) g/dL Hct 27.0 L (42-52) % RDW Std Deviation 47.1 H (36.4-46.3) fL Plt Count 122 L (130-400) K/uL Lymph # (Auto) 0.69 L (1.2-3.4) K/uL Immature Gran # (Auto) (0.00-0.02) K/uL Chloride 113 H (98-107) mmol/L BUN 33 H (7-18) mg/dl Creatinine 1.58 H D (0.6-1.4) mg/dl BUN/Creatinine Ratio 21.1 H (10-20) Glucose 101 H (70-99) mg/dl POC Glucose 106 H (70-99) mg/dl Hemoglobin A1c (4.5-5.6) % Calcium 8.3 L (8.5-10.1) mg/dl AST (15-37) U/L Troponin I 0.216 H* (0-0.045) ng/ml Albumin 2.9 L (3.4-5.0) gm/dl Albumin/Globulin Ratio 0.8 L (0.9-2) 01/18/21 Range/Units 06:11 WBC (4.8-10.8) K/uL RBC (4.7-6.1) M/uL Hgb (14.0-18.0) g/dL Hct (42-52) % RDW Std Deviation (36.4-46.3) fL Plt Count (130-400) K/uL Lymph # (Auto) (1.2-3.4) K/uL Immature Gran # (Auto) (0.00-0.02) K/uL Chloride (98-107) mmol/L BUN (7-18) mg/dl Creatinine (0.6-1.4) mg/dl BUN/Creatinine Ratio (10-20) Glucose (70-99) mg/dl POC Glucose (70-99) mg/dl Hemoglobin A1c 8.3 H (4.5-5.6) % Calcium (8.5-10.1) mg/dl AST (15-37) U/L Troponin I (0-0.045) ng/ml Albumin (3.4-5.0) gm/dl Albumin/Globulin Ratio (0.9-2) ECG Additional Comments: AM ECG pending- PG Care Time/CCT Total # of Minutes Spent Total Time Spent with Patient: Total time spent is greater than 50% in coordination of care (as documented) at patient's floor/unit and/or counseling patient: Coding Level of Care Code 85667 Subseq Hosp Care Lvl 3 Diagnoses CAD (coronary atherosclerotic disease) I25.810 Associated angina: unspecified whether angina present Coronary Disease-Associated Artery/Lesion type: bypass graft [place] vs. transplanted heart: [place] heart Elevated troponin I level R77.8 Hypertension I10 Hypercholesterolemia E78.00 Diabetes E11.9 H/O heart bypass surgery Z95.1 Acute kidney injury N17.9 BPH w urinary obs/LUTS N40.1; N13.8 Lower extremity edema R60.0 Bilateral shoulder pain M25.511; M25.512 Chronicity: acute Dyspnea R06.00 (1) CAD (coronary atherosclerotic disease) Associated angina: unspecified whether angina present Coronary Disease- Associated Artery/Lesion type: bypass graft [place] vs. transplanted heart: [place] heart Qualified Code(s): I25.810 - Atherosclerosis of coronary artery bypass graft(s) without angina pectoris (2) Bilateral shoulder pain Chronicity: acute Qualified Code(s): M25.511 - Pain in right shoulder; M25.512 - Pain in left shoulder
[2021-01-18] MEDS: ASPIRIN 81 MG ECTAB PO SCH (11:54)
--- NOTE | 2021-01-18 12:59 | Cardiology Consultation ---
Date of Consultation January 18, 2021 Assessment & Plan (1) Chest pain: (2) CAD (coronary atherosclerotic disease): (3) Aortic stenosis: (4) Mitral regurgitation: 1. Chest pain: His symptoms are exertional in nature and highly suggestive of coronary insufficiency. However, he is also noted to have severe aortic stenosis which could produce identical symptoms. He will likely need some form of intervention, possibly a valve replacement. In order to facilitate any valve procedure he will also need evaluation of his coronaries and bypass grafts. As his symptoms occur exclusively with exertion I do not feel he requires systemic heparinization at this point. 2. Coronary artery disease: Status post surgical revascularization with CLEARY to LAD and saphenous vein graft to OM. He reports having 3 lesions noted at the time of his initial angiography 2 of which likely required bypass. It is very possible he has residual right coronary disease. I did discuss with him the recommendation of coronary angiography. His renal function appears to be compromised. I think he is best served by prehydration. We will plan on proceeding electively. 3. Valvular heart disease: Newly discovered aortic stenosis and mitral valve disease. It is very possible as aortic valve disease is causing symptoms. Once we get a sense of his coronary anatomy we can devise a more definitive valve intervention. He does not appear to be a good candidate for an open procedure or a double valve procedure. 4. Anemia: He does have an element of mild anemia which appears to have been progressive over few months. He does have a history of colon cancer. This could exacerbate any symptoms of aortic stenosis or obstructive coronary disease. Do not think he requires immediate transfusion. History of Present Illness Reason for Consultation: Chest pain Requesting Physician: Selam Attending Physician: Nilton Hsu MD History of Present Illness The patient is an 85-year-old gentleman with history of coronary disease having previously undergone surgical revascularization in 2007. The patient states that over the past few weeks he has been experiencing symptoms of exertional shoulder and back discomfort associated with some mild dyspnea. These episodes do not appear to happen with routine activity but with at ascending stairs or more vigorous activity he will develop symptoms that last for approximately 10-15 minutes before resolution. He does not appear to have other associated symptoms such as dizziness or lightheadedness. He did not report any symptoms of palpitations. He has not had symptoms at rest. He has not had more prolonged symptoms. He cannot recall having symptoms in the past even leading up to his bypass surgery in 2007. Patient states that his initial cardiac evaluation 2007 was prompted by abnormal stress test leading up to a colectomy for colon cancer. He did not recall symptoms of chest discomfort, back discomfort her exertional dyspnea at that time. 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 He has not report other constitutional symptoms recently. No fevers or chills. No coughing. No change in bowel habits. He does have some lower extremity edema on the right leg which he says is chronic. No history of syncope. Allergies Allergy/AdvReac Type Severity Reaction Status Date / Time No Known Allergies Allergy Mild NONE Verified 12/26/15 06:14 Home Medications Medication Instructions Recorded Confirmed Type amlodipine 10 mg tablet 10 mg PO DAILY 01/17/21 01/17/21 History finasteride 5 mg tablet 5 mg PO DAILY 01/17/21 01/17/21 History furosemide 40 mg tablet 60 mg PO DAILY 01/17/21 01/17/21 History glipizide 10 mg tablet 20 mg PO BID 01/17/21 01/17/21 History lisinopril 10 mg tablet 10 mg PO BID 01/17/21 01/17/21 History metformin 500 mg tablet 500 mg PO BID 01/17/21 01/17/21 History metoprolol succinate 50 mg 50 mg PO DAILY 01/17/21 01/17/21 History tablet,extended release 24 hr simvastatin 20 mg tablet 20 mg PO DAILY 01/17/21 01/17/21 History spironolactone 25 mg tablet 25 mg PO DAILY 01/17/21 01/17/21 History tamsulosin 0.4 mg capsule 0.4 mg PO DAILY 01/17/21 01/17/21 History Patient History Medical History (Updated 01/18/21 @ 13:06 by Vish Rodriguez MD) BPH w urinary obs/LUTS Coronary artery disease Diabetes Hypercholesterolemia Hypertension Lower extremity edema Subdural hematoma Surgical History (Updated 11/24/17 @ 00:36 by Tigre Dexter) History of heart bypass surgery Status post evacuation of subdural hematoma Social History Smoking Status: Former smoker Tobacco Type: Cigarettes Hx Alcohol Use: No Preferred Language: Romanian marital status: current occupational status: employed and retired Feels Safe at Home: Yes Review of Systems Review of Systems: Per HPI Physical Exam Physical Exam: The patient is alert and oriented. Mood and affect appeared normal. He answered all questions appropriately. HEENT: Pupils are equal and reactive to light and accommodation. Extraocular movements are intact. The sclerae are anicteric. Neuro: Cranial nerves intact Lungs: Clear to auscultation bilaterally. He has good air movement without use of accessory muscles. No rales wheezes or rhonchi. Cardiac: Heart demonstrates a regular rate and rhythm with occasional ectopy Normal S1 and S2. High-pitched systolic ejection murmur. Pulses: The patient has palpable radial pulses bilaterally that are equal in intensity Extremities: There was no evidence of hypoperfusion. There is no cyanosis or clubbing. Moderate edema involving the right lower extremity in the pretibial area. No edema on the left. Skin: I did not appreciate any rashes on examination today. Results & Data ([facility]) Vital Signs (Past 12 Hours) Vital Signs Temp Pulse Pulse Resp BP BP Pulse Ox 01/18/21 05:13 73 18 129/70 95 01/18/21 02:17 01/18/21 02:16 36.7 C 82 14 136/61 95 01/18/21 01:50 82 17 95 01/18/21 01:40 81 18 94 01/18/21 01:30 76 19 122/69 97 01/18/21 01:20 75 19 94 01/18/21 01:10 99 H 24 98 01/18/21 01:00 87 27 H Pulse Ox 01/18/21 05:13 01/18/21 02:17 95 01/18/21 02:16 01/18/21 01:50 01/18/21 01:40 01/18/21 01:30 01/18/21 01:20 01/18/21 01:10 01/18/21 01:00 Laboratory Results Abnormal Lab Results 01/17/21 01/17/21 01/17/21 18:08 18:08 18:08 WBC 5.44 RBC 2.93 L Hgb 9.4 L Hct 27.8 L MCV 94.9 MCH 32.1 MCHC 33.8 RDW Std Deviation 48.0 H RDW Coeff of Jose A 14.0 Plt Count 114 L MPV 9.7 Immature Gran % (Auto) 0.6 Neut % (Auto) 84.7 Lymph % (Auto) 9.4 Darke % (Auto) 4.2 Eos % (Auto) 0.9 Baso % (Auto) 0.2 Neut # (Auto) 4.61 Lymph # (Auto) 0.51 L [place] # (Auto) 0.23 Eos # (Auto) 0.05 Baso # (Auto) 0.01 Immature Gran # (Auto) 0.03 H PT 10.4 INR 1.0 APTT 26.2 PTT Ratio 1.0 Sodium 139 Potassium 4.9 Chloride 109 H Carbon Dioxide 21 Anion Gap 9.0 BUN 45 H Creatinine 2.41 H Est Cr Clr Drug Dosing 24.1 Est GFR ( Amer) 27.3 Est GFR (Non-Af Amer) 23.6 BUN/Creatinine Ratio 18.8 Glucose 276 H POC Glucose Estimat Average Glucose Hemoglobin A1c Calcium 7.6 L Magnesium 1.8 Total Bilirubin 0.8 AST 7 L ALT 15 Alkaline Phosphatase 75 Troponin I < 0.015 Total Protein 6.7 Albumin 3.1 L Globulin 3.6 Albumin/Globulin Ratio 0.9 Lipase 131 Specimen Hemolysis SARS-CoV-2, RNA, NAAT 01/17/21 01/17/21 01/18/21 21:45 22:45 02:50 WBC RBC Hgb Hct MCV MCH MCHC RDW Std Deviation RDW Coeff of Jose A Plt Count MPV Immature Gran % (Auto) Neut % (Auto) Lymph % (Auto) [place] % (Auto) Eos % (Auto) Baso % (Auto) Neut # (Auto) Lymph # (Auto) [place] # (Auto) Eos # (Auto) Baso # (Auto) Immature Gran # (Auto) PT INR APTT PTT Ratio Sodium Potassium Chloride Carbon Dioxide Anion Gap BUN Creatinine Est Cr Clr Drug Dosing Est GFR ( Amer) Est GFR (Non-Af Amer) BUN/Creatinine Ratio Glucose POC Glucose 106 H Estimat Average Glucose Hemoglobin A1c Calcium Magnesium Total Bilirubin AST ALT Alkaline Phosphatase Troponin I 0.072 H* Total Protein Albumin Globulin Albumin/Globulin Ratio Lipase Specimen Hemolysis SARS-CoV-2, RNA, NAAT NEGATIVE 01/18/21 01/18/21 01/18/21 06:11 06:11 06:11 WBC 4.09 L RBC 2.90 L Hgb 9.3 L Hct 27.0 L MCV 93.1 MCH 32.1 MCHC 34.4 RDW Std Deviation 47.1 H RDW Coeff of Jose A 13.9 Plt Count 122 L MPV 9.3 Immature Gran % (Auto) 0.5 Neut % (Auto) 73.1 Lymph % (Auto) 16.9 Darke % (Auto) 7.1 Eos % (Auto) 2.2 Baso % (Auto) 0.2 Neut # (Auto) 2.99 Lymph # (Auto) 0.69 L [place] # (Auto) 0.29 Eos # (Auto) 0.09 Baso # (Auto) 0.01 Immature Gran # (Auto) 0.02 PT INR APTT PTT Ratio Sodium 140 Potassium 4.2 Chloride 113 H Carbon Dioxide 22 Anion Gap 5.0 BUN 33 H Creatinine 1.58 H D Est Cr Clr Drug Dosing 36.8 Est GFR ( Amer) 45.6 Est GFR (Non-Af Amer) 39.3 BUN/Creatinine Ratio 21.1 H Glucose 101 H POC Glucose Estimat Average Glucose 192 Hemoglobin A1c 8.3 H Calcium 8.3 L Magnesium 2.1 Total Bilirubin 1.0 AST 19 ALT 16 Alkaline Phosphatase 66 Troponin I 0.216 H* Total Protein 6.4 Albumin 2.9 L Globulin 3.5 Albumin/Globulin Ratio 0.8 L Lipase Specimen Hemolysis SARS-CoV-2, RNA, NAAT 01/18/21 12:17 WBC RBC Hgb Hct MCV MCH MCHC RDW Std Deviation RDW Coeff of Jose A Plt Count MPV Immature Gran % (Auto) Neut % (Auto) Lymph % (Auto) [place] % (Auto) Eos % (Auto) Baso % (Auto) Neut # (Auto) Lymph # (Auto) [place] # (Auto) Eos # (Auto) Baso # (Auto) Immature Gran # (Auto) PT INR APTT PTT Ratio Sodium Potassium Chloride Carbon Dioxide Anion Gap BUN Creatinine Est Cr Clr Drug Dosing Est GFR ( Amer) Est GFR (Non-Af Amer) BUN/Creatinine Ratio Glucose POC Glucose 195 H Estimat Average Glucose Hemoglobin A1c Calcium Magnesium Total Bilirubin AST ALT Alkaline Phosphatase Troponin I Total Protein Albumin Globulin Albumin/Globulin Ratio Lipase Specimen Hemolysis SARS-CoV-2, RNA, NAAT Diagnostic Findings Echocardiogram performed today revealed preserved LV systolic function. Severe aortic stenosis. Moderate mitral regurgitation. Mild mitral stenosis. Mild LVH. Elevated pulmonary pressures. Left atrial dilation. PG Care Time/CCT Total # of Minutes Spent Total Time Spent with Patient: Total time spent is greater than 50% in coordination of care (as documented) at patient's floor/unit and/or counseling patient: Coding Level of Care Code 80037 Initial Inpt Care Lvl 3 Diagnoses Chest pain R07.9 CAD (coronary atherosclerotic disease) I25.810 Associated angina: unspecified whether angina present Coronary Disease-Associated Artery/Lesion type: bypass graft [place] vs. transplanted heart: [place] heart Aortic stenosis I35.0 Mitral regurgitation I34.0 (1) CAD (coronary atherosclerotic disease) Associated angina: unspecified whether angina present Coronary Disease- Associated Artery/Lesion type: bypass graft [place] vs. transplanted heart: [place] heart Qualified Code(s): I25.810 - Atherosclerosis of coronary artery bypass graft(s) without angina pectoris
--- NOTE | 2021-01-18 13:06 | XCELERA ---
[id number]
[2021-01-18] MEDS ORDERED: LACTATED RINGER'S 1,000 ML IV ONE (13:17)
--- NOTE | 2021-01-18 17:18 | Electrocardiogram Report ---
Test Reason : Blood Pressure : / mmHG Vent. Rate : 086 BPM Atrial Rate : 086 BPM P-R Int : 282 ms QRS Dur : 114 ms QT Int : 420 ms P-R-T Axes : 056 -49 098 degrees QTc Int : 502 ms Sinus rhythm with 1st degree A-V block with Premature atrial complexes with Aberrant conduction Left axis deviation Incomplete right bundle branch block Left ventricular hypertrophy with repolarization abnormality Poor R wave progression, consider anterior OK vs. lead placement vs. LVH Prolonged QT Abnormal ECG When compared with ECG of 17-JAN-2021 17:33, Aberrant conduction is now Present Confirmed by Cali Rodriguez ([id number]) on 01/18/2021 5:18:19 PM Referred By: REFERRED SELF Confirmed By:Fernando Rodriguez
[2021-01-18] MEDS: LACTATED RINGER'S 1,000 ML IV SCH (18:00)
[2021-01-19 06:14] LABS: Basophils # (auto) 0.01 K/uL (0-0.2); Basophils % (auto) 0.2 %; Eosinophils # (auto) 0.08 K/uL (0-0.5); Eosinophils % (auto) 1.7 %; Hematocrit (blood only) 28.9 % (42-52); Hemoglobin 9.8 g/dL (14.0-18.0); Immature Granulocytes # (auto) 0.01 K/uL (0.00-0.02); Immature Granulocytes % (auto) 0.2 %; Lymphocytes # (auto) 0.66 K/uL (1.2-3.4); Lymphocytes % (auto) 13.7 %; Mean Corpuscular Hemoglobin 31.6 pg (25-34); Mean Corpuscular Hgb Conc 33.9 g/dL (32-36); Mean Corpuscular Volume 93.2 fL (80-100); Mean Platelet Volume 9.5 fL (7.4-10.4); Monocytes # (auto) 0.27 K/uL (0.11-0.59); Monocytes % (auto) 5.6 %; Neutrophils % (auto) 78.6 %; Platelet Count 130 K/uL (130-400); RDW Coefficient of Variation 13.9 % (11.5-14.5); RDW Standard Deviation 47.6 fL (36.4-46.3); White Blood Count 4.83 K/uL (4.8-10.8)
[2021-01-19] MEDS: LACTATED RINGER'S 1,000 ML IV SCH (06:43)
[2021-01-19 06:53] LABS: BUN Creatinine Ratio 18.4 (10-20); Calcium 8.1 mg/dl (8.5-10.1); Creatinine Clr Calc Pharmacy 36.8 ml/min; Est GFR (African American) 46.6 ml/min; Est GFR (Non-African American) 40.2 ml/min; Magnesium 1.9 mg/dl (1.8-2.4); Potassium 4.2 mmol/L (3.5-5.1)
[2021-01-19 06:56] LABS: Albumin Globulin Ratio 0.9 (0.9-2); Bilirubin,Total 1.4 mg/dl (0.2-1); Globulin 3.4 gm/dl (2.5-4.0); Total Protein 6.4 gm/dl (6.4-8.2)
--- NOTE | 2021-01-19 07:36 | Electrocardiogram Report ---
Test Reason : Blood Pressure : / mmHG Vent. Rate : 069 BPM Atrial Rate : 069 BPM P-R Int : 232 ms QRS Dur : 140 ms QT Int : 492 ms P-R-T Axes : 012 -54 071 degrees QTc Int : 527 ms Sinus rhythm with 1st degree A-V block with frequent Premature ventricular complexes Right bundle branch block Left anterior fascicular block Bifascicular block Moderate voltage criteria for LVH, may be normal variant Abnormal ECG When compared with ECG of 18-JAN-2021 09:43, Premature ventricular complexes are now Present Aberrant conduction is no longer Present Confirmed by Cali Rodriguez ([id number]) on 01/19/2021 7:35:28 AM Referred By: REFERRED SELF Confirmed By:Fernando Rodriguez
[2021-01-19] MEDS: FINASTERIDE 5 MG TAB PO SCH (07:40)
[2021-01-19] MEDS: METOPROLOL SUCC 50MG EXT REL TAB PO SCH (07:40)
[2021-01-19] MEDS: ASPIRIN 81 MG ECTAB PO SCH (07:40)
[2021-01-19] MEDS: amLODIPine BESYLATE 5 MG TAB PO SCH (07:40)
[2021-01-19] MEDS: SIMVASTATIN 20 MG TAB PO SCH (07:41)
[2021-01-19] MEDS: INSULIN ASPART 100 UNITS/ML 3 ML PEN SC SCH ×4 (07:42→21:17)
[2021-01-19] MEDS: FUROSEMIDE 20 MG TAB PO SCH (13:00)
[2021-01-19] MEDS: TAMSULOSIN HCL 0.4 MG CAP PO SCH (13:01)
--- NOTE | 2021-01-19 14:17 | Hospitalist Progress Note ---
Date of Service January 19, 2021 Assessment & Plan (1) CAD (coronary atherosclerotic disease): Plan: - History of CABG 2007- remains on BB, low dose zocor, BREANA, and diuetics- He was not on ASA he reports he used to be but stopped it around the time of his rectal bleeding/colon cancer workup - Echo - EF 55-60%; mild concentric LVH, atrium is mildly dilated; severe valvular aortic stenosis; moderate mitral regurg; mild mitral stenossi; R ventricular systolic pressure elevated at 40-50% - Trops elevating - 0.072, 0.216, 0.118, 0.137, 0.147 - Continue ASA 81 mg daily (restarted here) - Continue Toprol XL 50 mg daily and Simvastatin 20 mg daily; ACEI on hold - Cardiology following - planning to explore coronaries but likely will need valve repair/replacement -- Renal function still elevated but improving - was hydrated overnight. Hold Lasix until AM labs obtained - likely no intervention until Thursday so likely will hydrate overnight on Thursday for possible Thursday intervention (2) Dyspnea: Plan: Dyspnea with exertion - DDX- valve abnormality- systolic murmur - vs. cardiac ischemia or both - ECHO as above - Appreciate cardiology assitance (3) Elevated troponin I level: Plan: See above rule out NSTEMI - Has peaked and downtrending- So likley type II NSTEMI secondary to dyspnea and stress - As above Valve vs. myocardial ischemia (4) Hypertension: Plan: - Treatment as above; Continue Amlodipine 10 mg daily and BB (5) Hypercholesterolemia: Plan: Continue simvastatin (6) Diabetes: Plan: - A1c 8.3 Hold glipizide and Metformin Place on Accu-Cheks before meals and at bedtime with NovoLog coverage per scale (7) H/O heart bypass surgery: Plan: See above- 2018 (8) Acute kidney injury: Plan: - Creatinine 2.41 upon admission, with base 1.33 on 07/02 but labs in July/early December in 2.4 range -- More recent after increased diuretics in outpatient setting - [employer] at 1.55 on AM labs- continue to hold BREANA and diuretics - Consider gentle hydration Thursday night for preparation for possible cath on Thursday - May consider decreasing amlodipine from 10 to 5 mg if affecting lower extremity edema (9) BPH w urinary obs/LUTS: Plan: Continue tamsulosin (10) Lower extremity edema: Plan: Patient has asymmetric lower extremity size, right larger diameter than left. This has been investigated in the past with negative venous Dopplers on 07/12/2020 (11) Bilateral shoulder pain: Plan: See above- ? anginal equivalent associated with dyspnea and activity - Continue workup and risk stratification from cardiac standpoint. Plan: - Await renal function improvement to see if catheterization is possible...maybe Thursday Admission and Anticipated Discharge Date Admission Date: January 17, 2021 Subjective Reports feeling well. No SOB or chest pain at this time. Renal function is improving but still slightly elevated. Verbalizes no new complaints at this time. Review of Systems Review of Systems: All systems reviewed & are unremarkable except as noted in Subjective Physical Exam Physical Exam: PHYSICAL EXAM: General: awake, alert, no apparent distress Head: Normocephalic, atraumatic ENT: mucous membranes moist Neuro: AAO x 3, speech clear and appropriate Chest: equal rise and fall of the chest, no accessory muscle use, no heaves or thrills, Clear to auscultation, on room air, Cardiac: Regular rate and rhythm; no JVD, Grade II-III systolic murmur RSB; +1 edema to lower extremities GI: NABS x 4 quadrants, soft, nontender to palpation, no rebound, guarding or tenderness : Spontaneously voiding, no pain, no CVA tenderness, Extremities: Normal inspection Psych: Normal mood and affect Results & Data Results & Data ([facility]) Vital Signs (Past 12 Hours) Vital Signs Temp Pulse Resp BP Pulse Ox 01/19/21 12:00 36.9 C 88 20 119/65 98 01/19/21 08:09 36.5 C 73 20 126/63 98 01/19/21 03:55 36.7 C 73 20 138/70 97 PG Care Time/CCT Total # of Minutes Spent Total Time Spent with Patient: Total time spent is greater than 50% in coordination of care (as documented) at patient's floor/unit and/or counseling patient: Coding Level of Care Code 51050 Subseq Hosp Care Lvl 3 Diagnoses CAD (coronary atherosclerotic disease) I25.810 Associated angina: unspecified whether angina present Coronary Disease-Associated Artery/Lesion type: bypass graft [place] vs. transplanted heart: [place] heart Dyspnea R06.00 Elevated troponin I level R77.8 Hypertension I10 Hypercholesterolemia E78.00 Diabetes E11.9 H/O heart bypass surgery Z95.1 Acute kidney injury N17.9 BPH w urinary obs/LUTS N40.1; N13.8 Lower extremity edema R60.0 Bilateral shoulder pain M25.511; M25.512 Chronicity: acute (1) CAD (coronary atherosclerotic disease) Associated angina: unspecified whether angina present Coronary Disease- Associated Artery/Lesion type: bypass graft [place] vs. transplanted heart: [place] heart Qualified Code(s): I25.810 - Atherosclerosis of coronary artery bypass graft(s) without angina pectoris (2) Bilateral shoulder pain Chronicity: acute Qualified Code(s): M25.511 - Pain in right shoulder; M25.512 - Pain in left shoulder
--- NOTE | 2021-01-19 15:36 | Cardiology Progress Note ---
Date of Service January 19, 2021 Assessment & Plan (1) Chest pain: (2) CAD (coronary atherosclerotic disease): (3) Aortic stenosis: (4) Mitral regurgitation: Plan: 1. Chest pain: No recurrence. Small elevation in cardiac biomarkers concerning for coronary insufficiency. However, in the setting of aortic stenosis this could be related to valvular heart disease as well. 2. Coronary artery disease: Symptoms are consistent with angina. Will plan for coronary angiography. 3. 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 He will likely require aortic valve replacement. Depending on the results of his angiography this could be performed percutaneously. 4. Anemia: Stable A decision was made to defer coronary angiography over the weekend given his c omorbidities. We will optimize his renal function with hydration and Mucomyst on Thursday night and planned for angiography on Thursday. Admission and Anticipated Discharge Date Admission Date: January 19, 2021 Subjective This afternoon the patient was feeling well. He has not had any recurrence of his presenting symptom. He has been ambulatory around his room without chest pain or shoulder pain. No dyspnea. No dizziness. No palpitation. Review of Systems Review of Systems: Per HPI Physical Exam Physical Exam: The patient is alert and oriented. Mood and affect appeared normal. He answered all questions appropriately. HEENT: Pupils are equal and reactive to light and accommodation. Extraocular movements are intact. The sclerae are anicteric. Neuro: Cranial nerves intact Lungs: Clear to auscultation bilaterally. He has good air movement without use of accessory muscles. No rales wheezes or rhonchi. Cardiac: Heart demonstrates a regular rate and rhythm with occasional ectopy Normal S1 and S2. High-pitched systolic ejection murmur. Pulses: The patient has palpable radial pulses bilaterally that are equal in intensity Extremities: There was no evidence of hypoperfusion. There is no cyanosis or clubbing. Moderate edema involving the right lower extremity in the pretibial area. No edema on the left. Skin: I did not appreciate any rashes on examination today. Results & Data ([facility]) Vital Signs (Past 12 Hours) Vital Signs Temp Pulse Pulse Resp BP Pulse Ox 01/19/21 12:00 36.9 C 88 20 119/65 98 01/19/21 08:09 36.5 C 73 20 126/63 98 01/19/21 08:00 72 01/19/21 03:55 36.7 C 73 20 138/70 97 Laboratory Results Abnormal Lab Results 01/18/21 01/18/21 01/18/21 17:36 21:01 21:14 WBC RBC Hgb Hct MCV MCH MCHC RDW Std Deviation RDW Coeff of Jose A Plt Count MPV Immature Gran % (Auto) Neut % (Auto) Lymph % (Auto) [place] % (Auto) Eos % (Auto) Baso % (Auto) Neut # (Auto) Lymph # (Auto) [place] # (Auto) Eos # (Auto) Baso # (Auto) Immature Gran # (Auto) Sodium Potassium Chloride Carbon Dioxide Anion Gap BUN Creatinine Est Cr Clr Drug Dosing Est GFR ( Amer) Est GFR (Non-Af Amer) BUN/Creatinine Ratio Glucose POC Glucose 129 H 165 H Calcium Magnesium Total Bilirubin AST ALT Alkaline Phosphatase Troponin I 0.147 H* Total Protein Albumin Globulin Albumin/Globulin Ratio 01/19/21 01/19/21 01/19/21 05:55 05:55 06:06 WBC 4.83 RBC 3.10 L Hgb 9.8 L Hct 28.9 L MCV 93.2 MCH 31.6 MCHC 33.9 RDW Std Deviation 47.6 H RDW Coeff of Jose A 13.9 Plt Count 130 MPV 9.5 Immature Gran % (Auto) 0.2 Neut % (Auto) 78.6 Lymph % (Auto) 13.7 [place] % (Auto) 5.6 Eos % (Auto) 1.7 Baso % (Auto) 0.2 Neut # (Auto) 3.80 Lymph # (Auto) 0.66 L [place] # (Auto) 0.27 Eos # (Auto) 0.08 Baso # (Auto) 0.01 Immature Gran # (Auto) 0.01 Sodium 141 Potassium 4.2 Chloride 111 H Carbon Dioxide 20 L Anion Gap 10.0 BUN 29 H Creatinine 1.55 H Est Cr Clr Drug Dosing 36.8 Est GFR ( Amer) 46.6 Est GFR (Non-Af Amer) 40.2 BUN/Creatinine Ratio 18.4 Glucose 151 H POC Glucose 165 H Calcium 8.1 L Magnesium 1.9 Total Bilirubin 1.4 H AST 13 L ALT 15 Alkaline Phosphatase 71 Troponin I Total Protein 6.4 Albumin 3.0 L Globulin 3.4 Albumin/Globulin Ratio 0.9 01/19/21 11:36 WBC RBC Hgb Hct MCV MCH MCHC RDW Std Deviation RDW Coeff of Jose A Plt Count MPV Immature Gran % (Auto) Neut % (Auto) Lymph % (Auto) [place] % (Auto) Eos % (Auto) Baso % (Auto) Neut # (Auto) Lymph # (Auto) [place] # (Auto) Eos # (Auto) Baso # (Auto) Immature Gran # (Auto) Sodium Potassium Chloride Carbon Dioxide Anion Gap BUN Creatinine Est Cr Clr Drug Dosing Est GFR ( Amer) Est GFR (Non-Af Amer) BUN/Creatinine Ratio Glucose POC Glucose 158 H Calcium Magnesium Total Bilirubin AST ALT Alkaline Phosphatase Troponin I Total Protein Albumin Globulin Albumin/Globulin Ratio Diagnostic Findings Echocardiogram performed 01/18/2021: Normal LV systolic function. Mild LVH. Mild left atrial dilation. Severe aortic stenosis. Moderate mitral regurgitation. Mild mitral stenosis. PG Care Time/CCT Total # of Minutes Spent Total Time Spent with Patient: Total time spent is greater than 50% in coordination of care (as documented) at patient's floor/unit and/or counseling patient: Coding Level of Care Code 93103 Subseq Hosp Care Lvl 2 Diagnoses Chest pain R07.9 CAD (coronary atherosclerotic disease) I25.810 Associated angina: unspecified whether angina present Coronary Disease-Associated Artery/Lesion type: bypass graft [place] vs. transplanted heart: [place] heart Aortic stenosis I35.0 Mitral regurgitation I34.0 (1) CAD (coronary atherosclerotic disease) Associated angina: unspecified whether angina present Coronary Disease- Associated Artery/Lesion type: bypass graft [place] vs. transplanted heart: [place] heart Qualified Code(s): I25.810 - Atherosclerosis of coronary artery bypass graft(s) without angina pectoris
[2021-01-20 06:42] LABS: Basophils # (auto) 0.01 K/uL (0-0.2); Basophils % (auto) 0.3 %; Eosinophils # (auto) 0.07 K/uL (0-0.5); Eosinophils % (auto) 1.8 %; Hematocrit (blood only) 28.6 % (42-52); Hemoglobin 9.6 g/dL (14.0-18.0); Immature Granulocytes # (auto) 0.01 K/uL (0.00-0.02); Immature Granulocytes % (auto) 0.3 %; Lymphocytes # (auto) 0.72 K/uL (1.2-3.4); Lymphocytes % (auto) 18.7 %; Mean Corpuscular Hemoglobin 31.3 pg (25-34); Mean Corpuscular Hgb Conc 33.6 g/dL (32-36); Mean Corpuscular Volume 93.2 fL (80-100); Mean Platelet Volume 9.4 fL (7.4-10.4); Monocytes # (auto) 0.32 K/uL (0.11-0.59); Monocytes % (auto) 8.3 %; Neutrophils # (auto) 2.73 K/uL (1.4-6.5); Neutrophils % (auto) 70.6 %; Platelet Count 128 K/uL (130-400); RDW Coefficient of Variation 13.9 % (11.5-14.5); RDW Standard Deviation 47.3 fL (36.4-46.3); Red Blood Count 3.07 M/uL (4.7-6.1); White Blood Count 3.86 K/uL (4.8-10.8)
[2021-01-20 07:12] LABS: BUN Creatinine Ratio 20.6 (10-20); Calcium 8.7 mg/dl (8.5-10.1); Creatinine Clr Calc Pharmacy 34.4 ml/min; Est GFR (African American) 42.9 ml/min; Magnesium 2.2 mg/dl (1.8-2.4); Potassium 3.9 mmol/L (3.5-5.1)
[2021-01-20 07:15] LABS: Albumin Globulin Ratio 0.9 (0.9-2); Bilirubin,Total 1.4 mg/dl (0.2-1); Globulin 3.5 gm/dl (2.5-4.0); Total Protein 6.5 gm/dl (6.4-8.2)
[2021-01-20] MEDS: INSULIN ASPART 100 UNITS/ML 3 ML PEN SC SCH ×4 (08:34→20:43)
[2021-01-20] MEDS: amLODIPine BESYLATE 5 MG TAB PO SCH (08:36)
[2021-01-20] MEDS: ASPIRIN 81 MG ECTAB PO SCH (08:36)
[2021-01-20] MEDS: METOPROLOL SUCC 50MG EXT REL TAB PO SCH (08:36)
[2021-01-20] MEDS: FINASTERIDE 5 MG TAB PO SCH (08:36)
[2021-01-20] MEDS: TAMSULOSIN HCL 0.4 MG CAP PO SCH (08:37)
[2021-01-20] MEDS: SIMVASTATIN 20 MG TAB PO SCH (08:37)
[2021-01-20] MEDS: SODIUM CHLORIDE 0.9% 1000ML 1,000 ML IV SCH ×2 (10:54→23:29)
--- NOTE | 2021-01-20 15:55 | Cardiology Progress Note ---
Date of Service January 20, 2021 Assessment & Plan (1) Chest pain: (2) CAD (coronary atherosclerotic disease): (3) Aortic stenosis: (4) Mitral regurgitation: Plan: 1. Chest pain: No recurrence. Small elevation in cardiac biomarkers concerning for coronary insufficiency. However, in the setting of aortic stenosis this could be related to valvular heart disease as well. 2. Coronary artery disease: Symptoms are consistent with angina. Will plan for coronary angiography. Renal dysfunction and contrast nephropathy are the primary concern in his case. We will prehydrate overnight and treat with Mucomyst. 3. 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 He will likely require aortic valve replacement. Depending on the results of his angiography this could be performed percutaneously. 4. Anemia: Stable Admission and Anticipated Discharge Date Admission Date: January 19, 2021 Subjective This afternoon Mr. Parker claims to be feeling quite well. He denied any additional episodes of chest discomfort despite being ambulatory around his hospital room. No limiting dyspnea. No dizziness. No palpitations. Review of Systems Review of Systems: Per HPI Physical Exam Physical Exam: The patient is alert and oriented. Mood and affect appeared normal. He answered all questions appropriately. HEENT: Pupils are equal and reactive to light and accommodation. Extraocular movements are intact. The sclerae are anicteric. Neuro: Cranial nerves intact Lungs: Clear to auscultation bilaterally. He has good air movement without use of accessory muscles. No rales wheezes or rhonchi. Cardiac: Heart demonstrates a regular rate and rhythm with occasional ectopy Normal S1 and S2. High-pitched systolic ejection murmur. Pulses: The patient has palpable radial pulses bilaterally that are equal in intensity Extremities: There was no evidence of hypoperfusion. There is no cyanosis or clubbing. Moderate edema involving the right lower extremity in the pretibial area. No edema on the left. Skin: I did not appreciate any rashes on examination today. Results & Data ([facility]) Vital Signs (Past 12 Hours) Vital Signs Temp Pulse Pulse Resp BP Pulse Ox 01/20/21 15:52 36.4 C L 72 17 108/71 99 01/20/21 11:55 36.7 C 84 18 131/74 98 01/20/21 08:24 36.6 C 92 H 18 118/71 97 01/20/21 08:00 65 01/20/21 04:26 36.6 C 70 20 113/63 98 Laboratory Results Abnormal Lab Results 01/19/21 01/19/21 01/20/21 16:23 21:01 05:54 WBC 3.86 L RBC 3.07 L Hgb 9.6 L Hct 28.6 L MCV 93.2 MCH 31.3 MCHC 33.6 RDW Std Deviation 47.3 H RDW Coeff of Jose A 13.9 Plt Count 128 L MPV 9.4 Immature Gran % (Auto) 0.3 Neut % (Auto) 70.6 Lymph % (Auto) 18.7 Crisp % (Auto) 8.3 Eos % (Auto) 1.8 Baso % (Auto) 0.3 Neut # (Auto) 2.73 Lymph # (Auto) 0.72 L Crisp # (Auto) 0.32 Eos # (Auto) 0.07 Baso # (Auto) 0.01 Immature Gran # (Auto) 0.01 Sodium Potassium Chloride Carbon Dioxide Anion Gap BUN Creatinine Est Cr Clr Drug Dosing Est GFR ( Amer) Est GFR (Non-Af Amer) BUN/Creatinine Ratio Glucose POC Glucose 202 H 176 H Calcium Magnesium Total Bilirubin AST ALT Alkaline Phosphatase Total Protein Albumin Globulin Albumin/Globulin Ratio 01/20/21 01/20/21 01/20/21 05:54 07:34 11:30 WBC RBC Hgb Hct MCV MCH MCHC RDW Std Deviation RDW Coeff of Jose A Plt Count MPV Immature Gran % (Auto) Neut % (Auto) Lymph % (Auto) Crisp % (Auto) Eos % (Auto) Baso % (Auto) Neut # (Auto) Lymph # (Auto) Crisp # (Auto) Eos # (Auto) Baso # (Auto) Immature Gran # (Auto) Sodium 138 Potassium 3.9 Chloride 108 H Carbon Dioxide 22 Anion Gap 8.0 BUN 34 H Creatinine 1.66 H Est Cr Clr Drug Dosing 34.4 Est GFR ( Amer) 42.9 Est GFR (Non-Af Amer) 37.0 BUN/Creatinine Ratio 20.6 H Glucose 150 H POC Glucose 151 H 267 H Calcium 8.7 Magnesium 2.2 Total Bilirubin 1.4 H AST 11 L ALT 15 Alkaline Phosphatase 72 Total Protein 6.5 Albumin 3.0 L Globulin 3.5 Albumin/Globulin Ratio 0.9 PG Care Time/CCT Total # of Minutes Spent Total Time Spent with Patient: Total time spent is greater than 50% in coordination of care (as documented) at patient's floor/unit and/or counseling patient: Coding Level of Care Code 74809 Subseq Hosp Care Lvl 2 Diagnoses Chest pain R07.9 CAD (coronary atherosclerotic disease) I25.810 Associated angina: unspecified whether angina present Coronary Disease-Associated Artery/Lesion type: bypass graft [place] vs. transplanted heart: [place] heart Aortic stenosis I35.0 Mitral regurgitation I34.0 (1) CAD (coronary atherosclerotic disease) Associated angina: unspecified whether angina present Coronary Disease- Associated Artery/Lesion type: bypass graft [place] vs. transplanted heart: [place] heart Qualified Code(s): I25.810 - Atherosclerosis of coronary artery bypass graft(s) without angina pectoris
--- NOTE | 2021-01-20 16:57 | Hospitalist Progress Note ---
Date of Service January 20, 2021 Assessment & Plan (1) CAD (coronary atherosclerotic disease): Plan: - History of CABG 2007- remains on BB, low dose zocor, BREANA, and diuetics- He was not on ASA he reports he used to be but stopped it around the time of his rectal bleeding/colon cancer workup - Echo - EF 55-60%; mild concentric LVH, atrium is mildly dilated; severe valvular aortic stenosis; moderate mitral regurg; mild mitral stenossi; R ventricular systolic pressure elevated at 40-50% - Trops elevating - 0.072, 0.216, 0.118, 0.137, 0.147 - Continue ASA 81 mg daily (restarted here) - Continue Toprol XL 50 mg daily and Simvastatin 20 mg daily; ACEI on hold due t o renal function - Cardiology following - planning to explore coronaries but likely will need valve repair/replacement - as presenting symptoms could be related to his valves -- Renal function still elevated - will supply gentle hydration overnight. Hold Lasix. NPO at midnight (2) Dyspnea: Plan: Dyspnea with exertion - DDX- valve abnormality- systolic murmur - vs. cardiac ischemia or both - ECHO as above - Appreciate cardiology assitance (3) Elevated troponin I level: Plan: See above rule out NSTEMI - Has peaked and downtrending- So likley type II NSTEMI secondary to dyspnea and stress - As above Valve vs. myocardial ischemia (4) Hypertension: Plan: - Treatment as above; Continue Amlodipine 10 mg daily and BB (5) Hypercholesterolemia: Plan: Continue simvastatin (6) Diabetes: Plan: - A1c 8.3 Hold glipizide and Metformin Place on Accu-Cheks before meals and at bedtime with NovoLog coverage per scale (7) H/O heart bypass surgery: Plan: See above- 2018 (8) Acute kidney injury: Plan: - Creatinine 2.41 upon admission, with base 1.33 on 07/02 but labs in July/early December in 2.4 range so hard to determine true baseline -- More recent elevations after increased diuretics in outpatient setting - HEALTH 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 This has been investigated in the past with negative venous Dopplers on 07/12/2020 (11) Bilateral shoulder pain: Plan: See above- ? anginal equivalent associated with dyspnea and activity - Continue workup and risk stratification from cardiac standpoint. Plan: - Await renal function improvement to see if catheterization is possible for Thursday Admission and Anticipated Discharge Date Admission Date: January 19, 2021 Subjective Reports feeling well this AM. Not having any CP or SOB. Mostly sitting in chair during the day but ambulates in the room. Renal function still elevated. Seems Cr has been more in the 2s since July so hard to determine true baseline as it was normal earlier in the year but previous labs from [id number]. He is tolerating a diet and verbalizes no complaints. Review of Systems Review of Systems: All systems reviewed & are unremarkable except as noted in Subjective Physical Exam Physical Exam: PHYSICAL EXAM: General: awake, alert, no apparent distress Head: Normocephalic, atraumatic ENT: mucous membranes moist; dry scaling of midline of scalp from recent biopsy Neuro: AAO x 3, speech clear and appropriate Chest: equal rise and fall of the chest, no accessory muscle use, no heaves or thrills, Clear to auscultation, on room air, Cardiac: Regular rate and rhythm; no JVD, Grade II-III systolic murmur RSB; +1 edema to lower extremities GI: NABS x 4 quadrants, soft, nontender to palpation, no rebound, guarding or tenderness : Spontaneously voiding, no pain, no CVA tenderness, Extremities: Normal inspection Psych: Normal mood and affect Results & Data Results & Data ([facility]) Vital Signs (Past 12 Hours) Vital Signs Temp Pulse Pulse Resp BP Pulse Ox 01/20/21 15:52 36.4 C L 72 17 108/71 99 01/20/21 11:55 36.7 C 84 18 131/74 98 01/20/21 08:24 36.6 C 92 H 18 118/71 97 01/20/21 08:00 65 PG Care Time/CCT Total # of Minutes Spent Total Time Spent with Patient: Total time spent is greater than 50% in coordination of care (as documented) at patient's floor/unit and/or counseling patient: Coding Level of Care Code 06856 Subseq Hosp Care Lvl 3 Diagnoses CAD (coronary atherosclerotic disease) I25.810 Associated angina: unspecified whether angina present Coronary Disease-Associated Artery/Lesion type: bypass graft [place] vs. transplanted heart: [place] heart Dyspnea R06.00 Elevated troponin I level R77.8 Hypertension I10 Hypercholesterolemia E78.00 Diabetes E11.9 H/O heart bypass surgery Z95.1 Acute kidney injury N17.9 BPH w urinary obs/LUTS N40.1; N13.8 Lower extremity edema R60.0 Bilateral shoulder pain M25.511; M25.512 Chronicity: acute (1) CAD (coronary atherosclerotic disease) Associated angina: unspecified whether angina present Coronary Disease- Associated Artery/Lesion type: bypass graft [place] vs. transplanted heart: [place] heart Qualified Code(s): I25.810 - Atherosclerosis of coronary artery bypass graft(s) without angina pectoris (2) Bilateral shoulder pain Chronicity: acute Qualified Code(s): M25.511 - Pain in right shoulder; M25.512 - Pain in left shoulder
[2021-01-21 06:19] LABS: Hematocrit (blood only) 26.7 % (42-52); Hemoglobin 9.2 g/dL (14.0-18.0); Mean Corpuscular Hemoglobin 32.3 pg (25-34); Mean Corpuscular Hgb Conc 34.5 g/dL (32-36); Mean Corpuscular Volume 93.7 fL (80-100); Mean Platelet Volume 9.2 fL (7.4-10.4); Platelet Count 116 K/uL (130-400); RDW Coefficient of Variation 13.9 % (11.5-14.5); Red Blood Count 2.85 M/uL (4.7-6.1); White Blood Count 3.96 K/uL (4.8-10.8)
[2021-01-21 06:51] LABS: BUN Creatinine Ratio 23.7 (10-20); Calcium 8.1 mg/dl (8.5-10.1); Creatinine Clr Calc Pharmacy 42.3 ml/min; Est GFR (African American) 55.1 ml/min; Est GFR (Non-African American) 47.5 ml/min; Potassium 3.9 mmol/L (3.5-5.1)
[2021-01-21] MEDS: FINASTERIDE 5 MG TAB PO SCH (07:37)
[2021-01-21] MEDS: ASPIRIN 81 MG ECTAB PO SCH (07:37)
[2021-01-21] MEDS: METOPROLOL SUCC 50MG EXT REL TAB PO SCH (07:37)
[2021-01-21] MEDS: amLODIPine BESYLATE 5 MG TAB PO SCH (07:37)
[2021-01-21] MEDS: TAMSULOSIN HCL 0.4 MG CAP PO SCH (07:38)
[2021-01-21] MEDS: SIMVASTATIN 20 MG TAB PO SCH (07:38)
[2021-01-21] MEDS: INSULIN ASPART 100 UNITS/ML 3 ML PEN SC SCH ×4 (08:03→20:52)
[2021-01-21] MEDS ORDERED: fentaNYL citrate 100 MCG/2 ML VIAL ONE (11:29)
[2021-01-21] MEDS ORDERED: MIDAZOLAM HCL 1 MG/ML 2ML VIAL ONE (11:29)
[2021-01-21] MEDS ORDERED: niCARdipine HCL INJ 2.5 MG/ML 10 ML AMP ONE (11:29)
[2021-01-21] MEDS ORDERED: HEPARIN (PORCINE) 1000 UNIT/ML 10 ML (CATH LAB USE ONLY) ONE (11:29)
[2021-01-21] MEDS ORDERED: NITROGLYCERIN/D5W 100MCG/ML 20ML SYR ONE (12:07)
--- NOTE | 2021-01-21 13:29 | Hospitalist Progress Note ---
Date of Service January 21, 2021 Assessment & Plan (1) CAD (coronary atherosclerotic disease): Plan: - History of CABG 2007 - On BB, BREANA, Statin, & diuretics - Not on ASA (previously on but stopped it around the time of his rectal bleeding/colon cancer workup) - Echo - EF 55-60%; mild concentric LVH, atrium is mildly dilated; severe ; moderate MR; mild mitral stenosis; R ventricular systolic pressure elevated at 40-50mmHg - Trops elevating - 0.072, 0.216, 0.118, 0.137, 0.147 - Continue ASA 81 mg daily (restarted here) - Continue Toprol XL 50 mg daily and Simvastatin 20 mg daily - BREANA held due to MARCO on CKD; however, can be resumed - Cardiology following - for cath today (2) Dyspnea: Plan: Dyspnea with exertion - Await cath report (3) Elevated troponin I level: Plan: See above - Has peaked and downtrending- So likely type II NSTEMI secondary to demand ischemia - As above valvular insufficiency vs. myocardial ischemia (4) Hypertension: Plan: - Well controlled, continue Amlodipine 10 mg daily and BB (5) Hypercholesterolemia: Plan: Continue simvastatin (6) Diabetes: Plan: - A1c 8.3 - Hold glipizide and Metformin - Continue Accu-Cheks before meals and at bedtime with NovoLog coverage per scale (7) H/O heart bypass surgery: Plan: See above- 2018 (8) Acute kidney injury: Plan: - Creatinine 2.41 upon admission, with base 1.33 on 07/02 but labs in July/early December in 2.4 range so hard to determine true baseline - More recent elevations after increased diuretics in outpatient setting - Today creat 1.35, returned to baseline (9) BPH w urinary obs/LUTS: Plan: - Continue tamsulosin (10) Lower extremity edema: Plan: - Patient has asymmetric lower extremity size, R>L - This has been investigated in the past with negative venous dopplers on 07/12/2020 - Could consider decreasing Amlodipine as this can cause LE edema; however, would expect to see symmetrical edema not unilateral (11) Bilateral shoulder pain: Plan: ? anginal equivalent associated with dyspnea and activity - Continue workup and risk stratification from cardiac standpoint. Plan: Await cardiac cath report PT/OT eval Consult case management - D/C planning AM labs Admission and Anticipated Discharge Date Admission Date: January 19, 2021 Subjective Mr. Parker was seen on rounds this morning. He remains hospitalized for elevated troponin levels. Given his h/o CAD and CABG, cardiology planned for heart catheterization which is to be done today. Pt currently reports no complaints. He is sitting on edge of bed and denies chest pain at rest or with exertion. Denies shoulder pain, dyspnea, n/v/d, f/c, headache, or gu symptoms. Review of Systems Review of Systems: CONSTITUTIONAL: Denies weight loss/gain, fever and chills, fatigue, malaise, generalized weakness. HEENT: Denies changes in vision and hearing. RESPIRATORY: Denies SOB, cough, wheezing. CV: Denies palpitations, CP, lower extremity edema, orthopnea, PND. GI: Denies abdominal pain, nausea, vomiting and diarrhea. : Denies dysuria and urinary frequency, urgency, hesitancy. MUSCULOSKELETAL: Denies myalgia and joint pain. SKIN: Denies rash and pruritus. NEUROLOGICAL: Denies headache, syncope, focal weakness, numbness, tingling. PSYCHIATRIC: Denies recent changes in mood. Denies anxiety and depression. Physical Exam Physical Exam: GENERAL: 85 yo elderly WM. Well-developed, well-nourished. NAD. LUNGS: Clear to auscultation bilaterally. No accessory muscle use. No W/R/R. CARDIOVASCULAR: Regular rate and rhythm. Blowing 4/6 PRABHAKAR noted. ABDOMEN: Soft, non-tender and non-distended. No palpable masses. Bowel sounds normoactive x 4 quad. EXTREMITIES: RLE noted, no calf tenderness. LLE w/o edema. Peripheral pulses +2/4. PSYCHIATRIC: Cooperative. Appropriate mood and affect. SKIN: Warm, dry, intact. No rashes or lesions. Results & Data Results & Data ([facility]) Vital Signs (Past 12 Hours) Vital Signs Temp Pulse Pulse Resp BP Pulse Ox 01/21/21 11:55 16 133/75 97 01/21/21 08:00 36.8 C 77 64 109/61 01/21/21 04:20 36.6 C 73 20 107/66 99 Laboratory Results 01/21/21 05:55 01/21/21 05:55 PG Care Time/CCT Total # of Minutes Spent Total Time Spent with Patient: Total time spent is greater than 50% in coordination of care (as documented) at patient's floor/unit and/or counseling patient: Coding Level of Care Code 62051 Subseq Hosp Care Lvl 2 Diagnoses CAD (coronary atherosclerotic disease) I25.810 Associated angina: unspecified whether angina present Coronary Disease-Associated Artery/Lesion type: bypass graft [place] vs. transplanted heart: [place] heart Dyspnea R06.00 Elevated troponin I level R77.8 Hypertension I10 Hypercholesterolemia E78.00 Diabetes E11.9 H/O heart bypass surgery Z95.1 Acute kidney injury N17.9 BPH w urinary obs/LUTS N40.1; N13.8 Lower extremity edema R60.0 Bilateral shoulder pain M25.511; M25.512 Chronicity: acute (1) CAD (coronary atherosclerotic disease) Associated angina: unspecified whether angina present Coronary Disease- Associated Artery/Lesion type: bypass graft [place] vs. transplanted heart: [place] heart Qualified Code(s): I25.810 - Atherosclerosis of coronary artery bypass graft(s) without angina pectoris (2) Bilateral shoulder pain Chronicity: acute Qualified Code(s): M25.511 - Pain in right shoulder; M 25.512 - Pain in left shoulder
--- NOTE | 2021-01-21 13:52 | Post Anesthesia Assessment ---
Date of Service January 21, 2021 Post Sedation Assessment Vital Signs Temp Pulse Pulse Pulse Resp BP Pulse Ox 01/21/21 11:55 16 133/75 97 01/21/21 08:00 36.8 C 77 64 109/61 01/21/21 04:20 36.6 C 73 20 107/66 99 01/20/21 23:40 73 01/20/21 23:19 36.8 C 75 16 122/66 96 01/20/21 19:10 36.4 C L 69 16 110/64 99 01/20/21 15:52 36.4 C L 72 17 108/71 99 Recovery Score Activity: Moves 4 extremities Respiration: Deep Breath/Cough Circulation: +/-20% PreAnes Value Consciousness: Fully Awake Oxygen Saturation: > 92% On Room Air Discharge Sedation Level of Care: Fast Track Phase II Post Sedation Plan On clinical assessment, the patient appears to have tolerated the sedation without complications. Patient is recovering as anticipated. Patient will continue to be monitored by nursing and may be discharged when sedation discharge criteria are met per below protocol. Upon Completions of procedure up to 15 minutes continue every 5 minute vital signs and the P.A.R. score; then discharge to a Phase I or Fast Track to Phase II per the following guidelines: * Discharge Patient to appropriate Phase II area if PAR is 8 or greater or return to pre- procedure baseline. The post - procedure orders will be as directed. * If PAR score is less than 8 or not return to pre-procedure baseline then patient will follow Phase I monitoring till PAR is reached for Phase II. The Phase I may be done in procedure room or may call to secure a Phase I area. * If naloxone or flumazenil are used for reversal, hold in Phase I for continued monitoring from when last reversal dose was given for a minimum of 60 minutes or longer pending the nurse and/or physician discretion of patient condition before discharge to Phase II. Please call the Sedation Physician to re-evaluate and complete post-note for discharge to Phase II area. Do NOT discharge from procedure sedation or Phase 1 until post- sedation evaluation note is complete by procedure /sedation MD Sedation Discharge Instructions to be given to the patient at discharge to home.
--- NOTE | 2021-01-21 13:54 | Cardiac Catheterization ---
[facility] Data: Fern Gatherer Cardiac Status Clinical evaluation leading to the procedure CAD Presenation: Stable angina Diagnostic Physicians Name: Cali Rodriguez MD Closure Device Recommendations: Valve Replacement Cardiac Cath Procedure Full Procedure Date January 21, 2021 Pre-Procedure Diagnosis Pre-Procedure Diagnosis: Non STEMI and Angina AUC Score AUC Score: 7 Post-Procedure Diagnosis Post-Procedure Diagnosis: Severe CAD Procedure(s) Performed Procedure(s) Performed: Coronary Angiography and Bypass Graft Angiography Planer Stone Cali Rodriguez MD [employer] Principal(s) none Estimated Blood Loss Estimated Blood Loss: 5cc Medication(s) Medication(s): Fentanyl, Heparin, Lidocaine 1%, Nicardipine, Nitroglycerin and Versed Summary of Findings Procedure performed: Selective coronary angiography. Selective graft angiography Staff clinical account executive: Cali Rodriguez MD Indication: The patient is an 85-year-old gentleman with a history of coronary bypass grafting performed in 2007. He presented to the hospital with symptoms of exertional shoulder neck and chest pain consistent with angina. He was noted to have severe aortic stenosis. Procedure in detail: The patient was informed the risks benefits and alternatives to the intended procedure. He understood such in which proceed he was taken to the cardiac catheterization suite in a fasting state. Prehydration was performed. The patient was monitored electrocardiographically throughout today's procedure and conscious sedation was administered per protocol. The left radial artery was prepped and draped in the usual sterile fashion. This area was anesthetized using subcutaneous menstruation of lidocaine solution. The left radial artery was subsequently accessed using Seldinger technique and sheath was placed over guidewire at this site. The sheath was used facilitate passage of the cardiac catheters for selective coronary and graft angiography. Images were obtained in multiple orthogonal views prior to removal of the catheter and sheath. Hemostasis was achieved at the access site using manual pressure. The patient tolerated procedure well. There were no immediate complications. Equipment used: Five [place] JL 4 Five [place] JL are 4 Five [place] LCB Findings: Coronary angiography Left main: The left main was severely stenosis throughout its entire course including the ostium. It was seen to bifurcate into the left anterior descending and left circumflex arteries. Left anterior descending: Left anterior descending was a large transapical vessel. It was occluded in its midportion shortly after that the takeoff of a large diagonal branch. There were significant lesions in its proximal portion. Left circumflex: Left circumflex was a codominant system there was phasic flow in its proximal portion. He was noted fill primarily via a bypass graft and composed a large 2nd OM system, diminutive 1st OM and a medium-sized ongoing AV groove vessel. Right coronary: Right coronary was a co-dominant system. It produced a small PLB and PDA branch. There are luminal irregularities throughout its course but no obstructive lesions. Graft angiography [place] to LAD: Widely patent in its origin body and anastomosis. It was seen to fill the distal LAD. No additional obstructive lesions in the LAD. Reverse saphenous vein graft to OM: Widely patent in its origin body and anastomosis. Impression: Patent bypass grafts Severe left main disease Codominant right coronary system No obstructive disease in the right coronary Hemodynamics Rest Ao:: 76/43 mm of mercury Final Ao: 118/51 mm of mercury LV: n/a Recommendations Recommendations: Valve Replacement Specimens Specimens: None Radiation Exposure (mGy) 859 Contrast (mls) Seventy Procedural Complication(s) None Disposition Fern Gatherer Holding/Recovery I attest to the content of the Intraoperative Record and any orders documented therein. Any exceptions are noted below. [facility] Card Cath Procedure Codes Cardiac Catheterization Procedure 1: Cardiovascular Cath Procedures: 17324 Coronaries and Grafts/IM (venous & atrial) Moderate Sedation Procedure 1: Sedation/Anesthesia: 87068 Mod Sedation by the same physician;Init15 Min Child Age 5 & Up Procedure 2: Sedation/Anesthesia: 92452 Mod Sedation by the same physician; Ea [id number] Minutes PG Care Time/CCT Total # of Minutes Spent Total Time Spent with Patient: Total time spent is greater than 50% in coordination of care (as documented) at patient's floor/unit and/or counseling patient:
[2021-01-21] MEDS: SODIUM CHLORIDE 0.9% 1000ML 1,000 ML IV SCH ×2 (14:18→23:04)
--- NOTE | 2021-01-21 17:21 | Cardiology Progress Note ---
Date of Service January 21, 2021 Assessment & Plan (1) Chest pain: (2) CAD (coronary atherosclerotic disease): (3) Aortic stenosis: (4) Mitral regurgitation: Plan: 1. Chest pain: No recurrence. Given the angiography performed today the likely etiology is his valvular heart disease. 2. Coronary artery disease: Coronary graft angiography did not reveal any significant obstructive disease or likely culprit for his exertional symptoms. Will continue aggressive secondary prevention. 3. Valvular heart disease: It seems likely that his aortic stenosis has produce some symptoms of angina. We discussed a referral to [facility] to be evaluated for possible percutaneous valve replacement. 4. Anemia: Stable Will continue some hydration over the course of the evening. I will see him in the morning for likely discharge. Admission and Anticipated Discharge Date Admission Date: January 19, 2021 Subjective This afternoon the patient claimed he feeling well. No discomfort at the access site in the left radial area. No breathing difficulty. No additional episodes of chest pain. Review of Systems Review of Systems: Per HPI Physical Exam Physical Exam: The patient is alert and oriented. Mood and affect appeared normal. He answered all questions appropriately. HEENT: Pupils are equal and reactive to light and accommodation. Extraocular movements are intact. The sclerae are anicteric. Neuro: Cranial nerves intact Lungs: Normal respiratory effort. Clear lungs. Cardiac: Heart demonstrates a regular rate and rhythm. Normal S1 and S2. Harsh crescendo systolic murmur. Pulses: Palpable right radial pulse. Hemo band on left radial area. Good perfusion of the left hand. Extremities: There was no evidence of hypoperfusion. There is no cyanosis or clubbing. There is no edema. Skin: I did not appreciate any rashes on examination today. Results & Data ([facility]) Vital Signs (Past 12 Hours) Vital Signs Temp Pulse Pulse Pulse Resp BP Pulse Ox 01/21/21 17:03 75 20 116/68 97 01/21/21 16:06 73 19 120/71 98 01/21/21 15:55 67 01/21/21 15:54 36.3 C L 68 19 122/57 L 98 01/21/21 15:30 64 18 132/67 98 01/21/21 14:53 71 18 126/65 01/21/21 14:37 65 20 114/56 L 98 01/21/21 14:22 58 L 18 109/56 L 96 01/21/21 14:07 36.5 C 69 20 120/61 97 01/21/21 14:05 71 16 118/68 98 01/21/21 13:50 68 16 126/61 98 01/21/21 11:55 16 133/75 97 01/21/21 08:00 36.8 C 77 64 109/61 Laboratory Results Abnormal Lab Results 01/20/21 01/21/21 01/21/21 20:22 05:55 05:55 WBC 3.96 L RBC 2.85 L Hgb 9.2 L Hct 26.7 L MCV 93.7 MCH 32.3 MCHC 34.5 RDW Std Deviation 47.0 H RDW Coeff of Jose A 13.9 Plt Count 116 L MPV 9.2 Sodium 142 Potassium 3.9 Chloride 113 H Carbon Dioxide 19 L Anion Gap 10.0 BUN 32 H Creatinine 1.35 D Est Cr Clr Drug Dosing 42.3 Est GFR ( Amer) 55.1 Est GFR (Non-Af Amer) 47.5 BUN/Creatinine Ratio 23.7 H Glucose 148 H POC Glucose 177 H Calcium 8.1 L 01/21/21 01/21/21 01/21/21 07:31 11:22 14:28 WBC RBC Hgb Hct MCV MCH MCHC RDW Std Deviation RDW Coeff of Jose A Plt Count MPV Sodium Potassium Chloride Carbon Dioxide Anion Gap BUN Creatinine Est Cr Clr Drug Dosing Est GFR ( Amer) Est GFR (Non-Af Amer) BUN/Creatinine Ratio Glucose POC Glucose 151 H 184 H 165 H Calcium 01/21/21 16:22 WBC RBC Hgb Hct MCV MCH MCHC RDW Std Deviation RDW Coeff of Jose A Plt Count MPV Sodium Potassium Chloride Carbon Dioxide Anion Gap BUN Creatinine Est Cr Clr Drug Dosing Est GFR ( Amer) Est GFR (Non-Af Amer) BUN/Creatinine Ratio Glucose POC Glucose 209 H Calcium Diagnostic Findings Coronary angiography performed today revealed patent bypass grafts. Patent right coronary without obstructive disease. No new or limiting obstructive lesions. PG Care Time/CCT Total # of Minutes Spent Total Time Spent with Patient: Total time spent is greater than 50% in coordination of care (as documented) at patient's floor/unit and/or counseling patient: Coding Level of Care Code 76170 Subseq Hosp Care Lvl 2 Diagnoses Chest pain R07.9 CAD (coronary atherosclerotic disease) I25.810 Associated angina: unspecified whether angina present Coronary Disease-Associated Artery/Lesion type: bypass graft [place] vs. transplanted heart: [place] heart Aortic stenosis I35.0 Mitral regurgitation I34.0 (1) CAD (coronary atherosclerotic disease) Associated angina: unspecified whether angina present Coronary Disease- Associated Artery/Lesion type: bypass graft [place] vs. transplanted heart: [place] heart Qualified Code(s): I25.810 - Atherosclerosis of coronary artery bypass graft(s) without angina pectoris
[2021-01-22] MEDS ORDERED: COUGH DROP (SUGAR FREE) LOZ 24 LOZ/1 BOX BUCCAL ONE (05:18)
[2021-01-22 07:15] LABS: Hematocrit (blood only) 29.3 % (42-52); Mean Corpuscular Hemoglobin 31.8 pg (25-34); Mean Corpuscular Hgb Conc 34.1 g/dL (32-36); Mean Corpuscular Volume 93.3 fL (80-100); Platelet Count 132 K/uL (130-400); RDW Coefficient of Variation 14.1 % (11.5-14.5); RDW Standard Deviation 47.9 fL (36.4-46.3); Red Blood Count 3.14 M/uL (4.7-6.1); White Blood Count 4.69 K/uL (4.8-10.8)
[2021-01-22] MEDS: INSULIN ASPART 100 UNITS/ML 3 ML PEN SC SCH ×2 (07:51→12:31)
[2021-01-22 07:54] LABS: BUN Creatinine Ratio 19.5 (10-20); Calcium 8.8 mg/dl (8.5-10.1); Creatinine Clr Calc Pharmacy 43.7 ml/min; Est GFR (African American) 57.1 ml/min; Est GFR (Non-African American) 49.3 ml/min; Potassium 4.1 mmol/L (3.5-5.1)
[2021-01-22] MEDS: FINASTERIDE 5 MG TAB PO SCH (08:00)
[2021-01-22] MEDS: ASPIRIN 81 MG ECTAB PO SCH (08:00)
[2021-01-22] MEDS: METOPROLOL SUCC 50MG EXT REL TAB PO SCH (08:00)
[2021-01-22] MEDS: amLODIPine BESYLATE 5 MG TAB PO SCH (08:00)
[2021-01-22] MEDS: TAMSULOSIN HCL 0.4 MG CAP PO SCH (08:01)
[2021-01-22] MEDS: SIMVASTATIN 20 MG TAB PO SCH (08:01)
--- NOTE | 2021-01-22 10:22 | Cardiology Progress Note ---
Date of Service January 22, 2021 Assessment & Plan (1) Chest pain: (2) CAD (coronary atherosclerotic disease): (3) Aortic stenosis: (4) Mitral regurgitation: Plan: 1. Chest pain: No recurrence. Given the angiography performed today the likely etiology is his valvular heart disease. 2. Coronary artery disease: Coronary graft angiography did not reveal any significant obstructive disease or likely culprit for his exertional symptoms. Will continue aggressive secondary prevention. Continue moderate dose simvastatin. Daily aspirin would be advised. 3. Valvular heart disease: It seems likely that his aortic stenosis has produce some symptoms of angina. We discussed a referral to [facility] to be evaluated for possible percutaneous valve replacement. 4. Anemia: Stable I think he could be safely discharged today. No evidence of pulmonary vascular congestion. Renal function normal. Good perfusion of the left hand. He should not take metformin for another 2 days. He should refrain from vigorous use of the left wrist for 7 days. Admission and Anticipated Discharge Date Admission Date: January 19, 2021 Subjective This morning patient claims to be feeling well. No recurrent chest discomfort walking around the [place]. No pain at the left wrist or left hand. No breathing difficulty. No dizziness. Review of Systems Review of Systems: Per HPI Physical Exam Physical Exam: The patient is alert and oriented. Mood and affect appeared normal. He answered all questions appropriately. HEENT: Pupils are equal and reactive to light and accommodation. Extraocular movements are intact. The sclerae are anicteric. Neuro: Cranial nerves intact Lungs: Normal respiratory effort. Cardiac: Heart demonstrates a regular rate and rhythm. Normal S1 and S2. Harsh crescendo systolic murmur. Pulses: Palpable right radial pulse. Palpable left radial pulse with good perfusion of the left hand. Extremities: There was no evidence of hypoperfusion. There is no cyanosis or clubbing. There is no edema. Skin: I did not appreciate any rashes on examination today. Results & Data ([facility]) Vital Signs (Past 12 Hours) Vital Signs Temp Pulse Pulse Resp BP Pulse Ox 01/22/21 08:00 67 01/22/21 07:26 36.6 C 67 18 147/69 H 96 01/22/21 03:16 36.6 C 75 18 133/82 94 01/21/21 22:48 36.4 C L 89 19 123/65 99 Laboratory Results Abnormal Lab Results 1101/21/21 01/21/21 11:22 14:28 16:22 WBC RBC Hgb Hct MCV MCH MCHC RDW Std Deviation RDW Coeff of Jose A Plt Count MPV Sodium Potassium Chloride Carbon Dioxide Anion Gap BUN Creatinine Est Cr Clr Drug Dosing Est GFR ( Amer) Est GFR (Non-Af Amer) BUN/Creatinine Ratio Glucose POC Glucose 184 H 165 H 209 H Calcium 01/21/21 01/22/21 01/22/21 20:36 07:00 07:00 WBC 4.69 L RBC 3.14 L Hgb 10.0 L Hct 29.3 L MCV 93.3 MCH 31.8 MCHC 34.1 RDW Std Deviation 47.9 H RDW Coeff of Jose A 14.1 Plt Count 132 MPV 9.0 Sodium 140 Potassium 4.1 Chloride 113 H Carbon Dioxide 20 L Anion Gap 7.0 BUN 25 H Creatinine 1.31 Est Cr Clr Drug Dosing 43.7 Est GFR ( Amer) 57.1 Est GFR (Non-Af Amer) 49.3 BUN/Creatinine Ratio 19.5 Glucose 144 H POC Glucose 179 H Calcium 8.8 01/22/21 07:25 WBC RBC Hgb Hct MCV MCH MCHC RDW Std Deviation RDW Coeff of Jose A Plt Count MPV Sodium Potassium Chloride Carbon Dioxide Anion Gap BUN Creatinine Est Cr Clr Drug Dosing Est GFR ( Amer) Est GFR (Non-Af Amer) BUN/Creatinine Ratio Glucose POC Glucose 161 H Calcium PG Care Time/CCT Total # of Minutes Spent Total Time Spent with Patient: Total time spent is greater than 50% in coordination of care (as documented) at patient's floor/unit and/or counseling patient: Coding Level of Care Code 40140 Subseq Hosp Care Lvl 2 Diagnoses Chest pain R07.9 CAD (coronary atherosclerotic disease) I25.810 Associated angina: unspecified whether angina present Coronary Disease-Associated Artery/Lesion type: bypass graft [place] vs. transplanted heart: [place] heart Aortic stenosis I35.0 Mitral regurgitation I34.0 (1) CAD (coronary atherosclerotic disease) Associated angina: unspecified whether angina present Coronary Disease- Associated Artery/Lesion type: bypass graft [place] vs. transplanted heart: [place] heart Qualified Code(s): I25.810 - Atherosclerosis of coronary artery bypass graft(s) without angina pectoris
--- NOTE | 2021-01-22 12:04 | Discharge Summary ---
Date of Service January 22, 2021 Admission HPI Per Admitting Provider The patient is an 85-year-old male with a past medical history including CAD, hypertension, status post CABG, BPH with LUTS, diabetes mellitus, hyperlipidemia and right greater than left lower extremity edema. He is brought to the emergency department after having a recurrence of bilateral shoulder pain with associated dizziness. Abnormal laboratories: Hemoglobin 9.4, hematocrit 27.8, platelets 114, creatinine 2.41, glucose 276, BUN 45, albumin 3.1 and troponin 0.072. EKG shows normal sinus rhythm with right bundle branch block and left axis deviation Chest x-ray shows no acute findings In the emergency department patient received NSS 250 mL x2, and aspirin 324 mg Admission Exam Per Admitting Provider The patient is awake, alert and oriented 3, well developed and well nourished, normocephalic and atraumatic, lying in bed and in no acute distress. HEENT--PERRL, EOMI, mucous membranes and oropharynx normal. Neck--supple. No JVD. No bruits. Thyroid normal, trachea midline, no adenopathy. Heart--normal S1 and S2. No murmurs, rubs or gallops. Lungs--clear bilaterally, no respiratory distress, no accessory muscle use. Abdomen--normal bowel sounds and soft. Nontender. Nondistended. Obese Extremities--no cyanosis or clubbing. 1+ right lower extremity pretibial edema. Left lower extremity with trace pretibial pitting edema. Right lower extremity below-knee 1 1/2 times the size of left Dermatologic--normal skin turgor, normal color, no abnormal lymph nodes, no rash. Neurologic--cranial nerves II through XII grossly intact. Rheumatologic--normal range of motion. Psychiatric--normal affect. Principal Diagnosis 1. CAD with elevated troponin, suspect type II secondary to severe valvular disease 2. MARCO, resolved Discharge Exam GENERAL: 85 yo elderly WM. Well-developed, well-nourished. NAD. LUNGS: Clear to auscultation bilaterally. No accessory muscle use. No W/R/R. CARDIOVASCULAR: Regular rate and rhythm. Blowing 4/6 PRABHAKAR noted. ABDOMEN: Soft, non-tender and non-distended. No palpable masses. Bowel sounds normoactive x 4 quad. EXTREMITIES: RLE 1+ edema noted, no calf tenderness. LLE w/o edema. Peripheral pulses +2/4. PSYCHIATRIC: Cooperative. Appropriate mood and affect. SKIN: Warm, dry, intact. No rashes or lesions. Discharge Data Allergies Allergy/AdvReac Type Severity Reaction Status Date / Time No Known Allergies Allergy Mild NONE Verified 12/26/15 06:[address] Rodriguez, milk powder grinder, consulted due to elevated troponin levels w/ history of CAD Procedures Performed ACC Data: Stitch Bonder Machine Operator Helper Cardiac Status Clinical evaluation leading to the procedure CAD Presenation: Stable angina Diagnostic Physicians Name: Cali Rodriguez MD Closure Device Recommendations: Valve Replacement Cardiac Cath Procedure Full Procedure Date January 21, 2021 Pre-Procedure Diagnosis Pre-Procedure Diagnosis: Non STEMI and Angina AUC Score AUC Score: 7 Post-Procedure Diagnosis Post-Procedure Diagnosis: Severe CAD Procedure(s) Performed Procedure(s) Performed: Coronary Angiography and Bypass Graft Angiography Utility Aircrewman Cali Rodriguez MD Filling Layer Up(s) none Estimated Blood Loss Estimated Blood Loss: 5cc Medication(s) Medication(s): Fentanyl, Heparin, Lidocaine 1%, Nicardipine, Nitroglycerin and Versed Summary of Findings Procedure performed: Selective coronary angiography. Selective graft angiography Staff milk powder grinder: Cali Rodriguez MD Indication: The patient is an 85-year-old gentleman with a history of coronary bypass grafting performed in 2007. He presented to the hospital with symptoms of exertional shoulder neck and chest pain consistent with angina. He was noted to have severe aortic stenosis. Procedure in detail: The patient was informed the risks benefits and alternatives to the intended procedure. He understood such in which proceed he was taken to the cardiac catheterization suite in a fasting state. Prehydration was performed. The patient was monitored electrocardiographically throughout today's procedure and conscious sedation was administered per protocol. The left radial artery was prepped and draped in the usual sterile fashion. This area was anesthetized using subcutaneous menstruation of lidocaine solution. The left radial artery was subsequently accessed using Seldinger technique and sheath was placed over guidewire at this site. The sheath was used facilitate passage of the cardiac catheters for selective coronary and graft angiography. Images were obtained in multiple orthogonal views prior to removal of the catheter and sheath. Hemostasis was achieved at the access site using manual pressure. The patient tolerated procedure well. There were no immediate complications. Equipment used: Five [place] JL 4 [place] JL are 4 [place] LCB Findings: Coronary angiography Left main: The left main was severely stenosis throughout its entire course including the ostium. It was seen to bifurcate into the left anterior descending and left circumflex arteries. Left anterior descending: Left anterior descending was a large transapical vessel. It was occluded in its midportion shortly after that the takeoff of a large diagonal branch. There were significant lesions in its proximal portion. Left circumflex: Left circumflex was a codominant system there was phasic flow in its proximal portion. He was noted fill primarily via a bypass graft and composed a large 2nd OM system, diminutive 1st OM and a medium-sized ongoing AV groove vessel. Right coronary: Right coronary was a co-dominant system. It produced a small PLB and PDA branch. There are luminal irregularities throughout its course but no obstructive lesions. Graft angiography [place] to LAD: Widely patent in its origin body and anastomosis. It was seen to fill the distal LAD. No additional obstructive lesions in the LAD. Reverse saphenous vein graft to OM: Widely patent in its origin body and anastomosis. Impression: Patent bypass grafts Severe left main disease Codominant right coronary system No obstructive disease in the right coronary Hemodynamics Rest Ao:: 76/43 mm of mercury Final Ao: 118/51 mm of mercury LV: n/a Recommendations Recommendations: Valve Replacement Specimens Specimens: None Radiation Exposure (mGy) 859 Contrast (mls) Seventy Procedural Complication(s) None Disposition Stitch Bonder Machine Operator Helper Holding/Recovery I attest to the content of the Intraoperative Record and any orders documented therein. Any exceptions are noted below. Signed By: <Electronically signed by Vish Rodriguez MD> Ordered Studies Laboratory Results - last 24 hr 01/22/21 01/22/21 01/22/21 07:00 07:00 07:25 WBC 4.69 L RBC 3.14 L Hgb 10.0 L Hct 29.3 L MCV 93.3 MCH 31.8 MCHC 34.1 RDW Std Deviation 47.9 H RDW Coeff of Jose A 14.1 Plt Count 132 MPV 9.0 Sodium 140 Potassium 4.1 Chloride 113 H Carbon Dioxide 20 L Anion Gap 7.0 BUN 25 H Creatinine 1.31 Est Cr Clr Drug Dosing 43.7 Est GFR ( Amer) 57.1 Est GFR (Non-Af Amer) 49.3 BUN/Creatinine Ratio 19.5 Glucose 144 H POC Glucose 161 H Calcium 8.8 Chest X-Ray 01/17/21 17:28 XR chest 1V portable CLINICAL HISTORY: Atypical chest pain. COMPARISON STUDY: Chest radiograph December 28, 2015 point FINDINGS: Lung volumes are normal. There is no pneumothorax or pleural effusion. Cardiomegaly is noted. Subtle interstitial prominence is likely chronic. There is no consolidation. There is no convincing evidence for pulmonary edema. IMPRESSION: No acute cardiopulmonary findings. ACT 112: Negative or not required by law. Electronically signed by: Dominick Helms M.D. 01/17/2021 5:52 PM Echocardiogram 01/18/21 Left ventricular systolic function is normal. There is mild concentric LVH. The left atrium is mildly dilated. Severe valvular aortic stenosis. There is moderate mitral regurgitation. There is mild mitral stenosis. Right ventricular systolic pressure is elevated at 40-[address] Rodriguez [facility] Course (1) CAD (coronary atherosclerotic disease): - History of CABG 2007 - On BB, BREANA, Statin, & diuretics - Not on ASA (previously on but stopped it around the time of his rectal bleeding/colon cancer workup) - Echo - EF 55-60%; mild concentric LVH, atrium is mildly dilated; severe ; moderate MR; mild mitral stenosis; R ventricular systolic pressure elevated at 40-50mmHg - Trops elevating - 0.072, 0.216, 0.118, 0.137, 0.147 - Continue ASA 81 mg daily (restarted here) - Continue Toprol XL 50 mg daily and Simvastatin 20 mg daily - BREANA held due to MARCO on CKD; however, can be resumed - Cardiology consulted, advised cardiac catheterization, results of cath as noted above. Cards recommending referral to [facility] for valve replacement as this is likely the cause of his symptoms and elevated toponins. (2) Dyspnea: Dyspnea with exertion - Likely secondary to severe - Valve replacement advised, referral to be made as outpatient to [facility] (3) Elevated troponin I level: See above - Has peaked and downtrending- So likely type II NSTEMI secondary to demand ischemia in setting of severe (4) Hypertension: - Well controlled, continue Amlodipine 10 mg daily and BB (5) Hypercholesterolemia: Continue simvastatin (6) Diabetes: - A1c 8.3 - Hold glipizide and Metformin - Continue Accu-Cheks before meals and at bedtime with NovoLog coverage per scale (7) H/O heart bypass surgery: See above- 2018 (8) Acute kidney injury: - Creatinine 2.41 upon admission, with base 1.33 on 07/02 but labs in July/early December in 2.4 range so hard to determine true baseline - More recent elevations after increased diuretics in outpatient setting - Returned to baseline - Can be monitored as outpatient (9) BPH w urinary obs/LUTS: - Continue tamsulosin (10) Lower extremity edema: - Patient has asymmetric lower extremity size, R>L - This has been investigated in the past with negative venous dopplers on 07/12/2020 - Could consider decreasing Amlodipine as this can cause LE edema; however, would expect to see symmetrical edema not unilateral (11) Bilateral shoulder pain: ? anginal equivalent associated with dyspnea and activity - Continue workup and risk stratification from cardiac standpoint. Patient is medically stable for discharge home today. Advise f/u with Dr. Rodriguez within 1 week and PCP in that time frame as well. Hold Metformin today and tomorrow, may resume on 01/24. Total Time Total Time Spent Total Time Spent (In Minutes): >30 minutes Discharge Plan Discharge Items Patient Disposition: Home - Self-Care Reason For Visit: ELEVATED TROPONIN, MARCO Discharge Diagnosis: Elevated cardiac enzymes Leaky aortic valve Condition on Discharge: Fair Activity: Resume your previous activity Non-emergency contact: Primary Care Provider and Utility Aircrewman Call non-emergency contact if: you have any medication questions and your symptoms worsen Follow-up/Referrals: Vish Rodriguez MD [Physician] - Robert Quinones MD [Primary Care Provider] - 01/29/21 1:30 pm (Please follow up with Dr. Quinones on Thursday01/29/21 at 1:30 pm. Please arrive to the office at 1:15 pm for your appointment. If you are unable to keep this appointment, please call the office to reschedule at [phone].) Diet: Carb Consistent or DM2 Addtl Attending Provider Instructions: 1. Take all medications as directed. Hold Metformin today (01/22) and tomorrow (01/23), do not resume until morning of 01/24/21. 2. Follow up with cardiology within 1 week 3. Follow up with PCP within 1 week. 4. Referral to be made to [place] for aortic valve replacement. Pending Studies at Discharge: No Stand-Alone Forms: [facility], Smoking Cessation Medications and DC Order Prescriptions: New aspirin 81 mg Tablet,Delayed Release (Dr/Ec) 81 mg PO DAILY Qty: 30 RF: 0 Continued furosemide 40 mg tablet 60 mg PO DAILY RF: 0 metformin 500 mg tablet 500 mg PO BID RF: 0 metoprolol succinate 50 mg tablet extended release 24 hr 50 mg PO DAILY RF: 0 glipizide 10 mg tablet 20 mg PO BID RF: 0 tamsulosin 0.4 mg capsule 0.4 mg PO DAILY RF: 0 amlodipine 10 mg tablet 10 mg PO DAILY RF: 0 simvastatin 20 mg tablet 20 mg PO DAILY RF: 0 lisinopril 10 mg tablet 10 mg PO BID RF: 0 finasteride 5 mg tablet 5 mg PO DAILY RF: 0 Discontinued spironolactone 25 mg tablet 25 mg PO DAILY RF: 0 Discharge Orders: Discharge Order (Routine); Ordered 01/22/21 Ordered By: Maris Stanley/Other Patient Handouts: A1C, High Blood Sugar (Hyperglycemia), Hypoglycemia (Low Blood Sugar), Managing Type 2 Diabetes Admission Data Admit Date/Time: 01/19/21 15:00 Attending Provider: Alverto Daniel Admit Provider: Jaison Aguirre Primary Care Provider: Robert Quinones Other Providers: Jaison Aguirre ; Adrian Doss ; Vish Rodriguez Coding Level of Care Code D/C DAY MANAGEMENT >30 MINS Diagnoses CAD (coronary atherosclerotic disease) I25.810 Associated angina: unspecified whether angina present Coronary Disease-Associated Artery/Lesion type: bypass graft [place] vs. transplanted heart: [place] heart Dyspnea R06.00 Elevated troponin I level R77.8 Hypertension I10 Hypercholesterolemia E78.00 Diabetes E11.9 H/O heart bypass surgery Z95.1 Acute kidney injury N17.9 BPH w urinary obs/LUTS N40.1; N13.8 Lower extremity edema R60.0 Bilateral shoulder pain M25.511; M25.512 Chronicity: acute
== END 2021-01-22 12:49 | disposition home or self-care (01) ==
LOC: EDINP 16:58 → ED 16:58 → SUATTDRO 23:49 → 2S 01-18 02:09 → SUATTDRO 01-19 15:00 → 2S 01-20 18:43
PROC: CLB.CCG (2021-01-21 09:30)
DX: I25.810 Atherosclerosis of coronary artery bypass graft(s) without angina pectoris; Z79.84 Long term (current) use of oral hypoglycemic drugs; Z95.5 Presence of coronary angioplasty implant and graft; R77.8 Other specified abnormalities of plasma proteins; N40.1 Benign prostatic hyperplasia with lower urinary tract symptoms; E78.00 Pure hypercholesterolemia, unspecified; M25.511 Pain in right shoulder; Z98.84 Bariatric surgery status; R60.0 Localized edema; E11.9 Type 2 diabetes mellitus without complications; N17.9 Acute kidney failure, unspecified; M25.512 Pain in left shoulder; Z79.899 Other long term (current) drug therapy; Z20.822 Contact with and (suspected) exposure to COVID-19; I10 Essential (primary) hypertension; R06.00 Dyspnea, unspecified; Z87.891 Personal history of nicotine dependence

== ENCOUNTER 2021-02-18 13:59 | Observation (INO) ==
[2021-02-18] MEDS ORDERED: DOPamine 400MG / 250ML D5W IV ONE (14:03)
[2021-02-18] MEDS: DOPamine / D5W 400 MG/250 ML BAG IV SCH ×2 (14:05→21:00)
[2021-02-18] MEDS ORDERED: STAT IV Infusion **Titration per Protocol STA (14:06)
--- NOTE | 2021-02-18 14:14 | XRay Report ---
XR chest 1V portable CLINICAL HISTORY: Weak. Shortness of breath. COMPARISON STUDY: Chest radiograph January 12,021 FINDINGS: Trace bilateral pleural effusions have developed. Interstitial thickening has also develope d. Cardiomegaly is noted with median sternotomy wires and mediastinal surgical clips. There is no pne umothorax. There is mild left basilar opacity. IMPRESSION: 1. Interval development of interstitial pulmonary edema and trace bilateral pleural effusions. 2. Cardiomegaly. 3. Mild left basilar opacity which favors atelectasis. An infectious process could appear similar [place] is considered less likely. ACT 112: Negative or not required by law. Electronically signed by: Dominick Helms M.D. 02/18/2021 2:13 PM
[2021-02-18 14:17] LABS: Basophils # (auto) 0.01 K/uL (0-0.2); Basophils % (auto) 0.2 %; Eosinophils # (auto) 0.01 K/uL (0-0.5); Eosinophils % (auto) 0.2 %; Hematocrit (blood only) 30.6 % (42-52); Immature Granulocytes # (auto) 0.01 K/uL (0.00-0.02); Immature Granulocytes % (auto) 0.2 %; Lymphocytes # (auto) 0.54 K/uL (1.2-3.4); Lymphocytes % (auto) 8.9 %; Mean Corpuscular Hemoglobin 32.4 pg (25-34); Mean Corpuscular Hgb Conc 32.7 g/dL (32-36); Mean Platelet Volume 10.6 fL (7.4-10.4); Monocytes # (auto) 0.24 K/uL (0.11-0.59); Monocytes % (auto) 3.9 %; Neutrophils # (auto) 5.28 K/uL (1.4-6.5); Neutrophils % (auto) 86.6 %; Platelet Count 135 K/uL (130-400); RDW Coefficient of Variation 15.9 % (11.5-14.5); RDW Standard Deviation 56.8 fL (36.4-46.3); Red Blood Count 3.09 M/uL (4.7-6.1); White Blood Count 6.09 K/uL (4.8-10.8)
--- NOTE | 2021-02-18 14:17 | Emergency Department Note ---
Impression & Plan CHB (complete heart block), Aortic stenosis, Hyperglycemia, Weakness, MARCO (acute kidney injury) ED Provider Note Provider: Chris Barton MD DATE OF SERVICE: 02/18/2021 CHIEF COMPLAINT: Shoulder pain, dizziness, shortness of breath HISTORY OF PRESENT ILLNESS: Patient is a 85-year-old gentleman history of severe aortic stenosis, hypertension, diabetes, coronary disease status post bypass c urrently on aspirin presenting via ambulance today after the onset of some shoulder pain and dizziness and shortness of breath. No fevers or significant cough reported. No trauma or syncope reported. Patient did take his metoprolol this morning and has been following with cardiology and planning to undergo evaluation for aortic valve repair/TAVR. Patient evidently became hypotensive and more symptomatic for EMS and received 0.5 mg of IV atropine with improvement of his blood pressure to approximately 100 systolic from the 70s. Patient upon arrival here denies significant symptoms such as shoulder pressure chest pressure, shortness of breath, dizziness, or headache. Patient is vaccinated for Covid. REVIEW OF SYSTEMS: A total of 10 review of systems was obtained and negative except as stated above in the HPI. 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 NECK: Trachea midline. ENT: Mucous membranes pink and moist. LUNGS: Airway patent. No retractions. Breath sounds clear with good air entry bilaterally. HEART: Irregular bradycardic rate and rhythm. No chest wall tenderness ABDOMEN: Soft and non-tender, without guarding or rebound. SKIN: Acyanotic, warm, dry, without rashes EXTREMITIES: Without swelling, tenderness or deformity NEUROLOGICAL: No focal deficits. No aphasia. No facial droop or slurred speech. EK bpm complete heart block without acute ST segment elevation. Left bundle branch block is present. CONTINUOUS CARDIAC MONITORING: was ordered and showed a heart rate of 30s-40s bpm in complete heart block Patient's laboratory studies and imaging reviewed. Differential includes Infection, dehydration, metabolic abnormality, hypo/hyperglycemia, electrolyte disturbance, anemia, hypoxia, cardiac sources, intracerebral event, toxicologic, neurologic, as well as other pathologies. IMPRESSION/MEDICAL DECISION MAKING: Patient resents complaining of some weakness after shoulder pressure dizziness and shortness of breath per prehospital he with atropine. Upon arrival here patient's blood pressure in the high 90s and patient is feeling some improvement. Peers to be in complete heart block. Reviewed recent hospitalization and cardiac history. Blood work was sent. Covid testing sent. Transcutaneous pads were placed but the patient is mentating fine without significant symptoms. Dopamine drip was placed at bedside and initiated. Cardiology was emergently consulted and discussed the case with . Patient's blood pressure began to trend down some. Some IV fluid hydration was ordered and given a 1 mg dose of atropine without significant change. Patient without significant symptoms of shortness of breath, chest pressure, dizziness, lightheadedness. Dopamine drip was uptitrated and cardiology was at bedside. Flu, RSV, and Covid testing negative. Glucose is noted to be somewhat elevated and the MARCO is present today on blood work. [id number] and patient updated by cardiology at bedside and consented for emergent temporary versus permanent pacemaker placement. Taken to the electrophysiology lab by cardiology staff. DIAGNOSIS: Complete heart block, hyperglycemia, MARCO, aortic stenosis DISPOSITION: Hospitalist will evaluate Patient was agreeable with this plan. Critical Care I have personally spent 42 minutes of critical care time in the direct management of this patient. This includes bedside care, interpretation of diagnostic studies, and testing, discussion with consultants, patient, and family members, and other required patient management activities. These 42 minutes is in excess of all separately billable procedures. Past Med/Surg History Medical History (Updated 02/18/21 @ 15:36 by Chris Barton M.D.) BPH w urinary obs/LUTS Coronary artery disease Diabetes Hypercholesterolemia Hypertension Lower extremity edema Subdural hematoma Surgical History (Updated 11/24/17 @ 00:36 by Tigre Dexter) History of heart bypass surgery Status post evacuation of subdural hematoma Social History Smoking Status: Never smoker Tobacco Type: Cigarettes Hx Alcohol Use: No Hx Substance Use: No Preferred Language: Bengali Communication Ability: Effective Oxygraph Operator Required: No Beliefs That Will Affect Care: None marital status: Current Living Situation: Family current occupational status: employed and retired How many Children do You have: 3 Feels Safe at Home: Yes Assistive Devices: None Allergies Allergies Allergy/AdvReac Type Severity Reaction Status Date / Time No Known Allergies Allergy Mild NONE Verified 02/14/21 13:11 Home Meds Home Medications Medication Instructions Recorded Confirmed amlodipine 10 mg tablet 10 mg PO DAILY 01/17/21 02/14/21 finasteride 5 mg tablet 5 mg PO DAILY 01/17/21 02/14/21 furosemide 40 mg tablet 60 mg PO DAILY 01/17/21 02/14/21 glipizide 10 mg tablet 20 mg PO BID 01/17/21 02/14/21 lisinopril 10 mg tablet 10 mg PO BID 01/17/21 02/14/21 metformin 500 mg tablet 500 mg PO BID 01/17/21 02/14/21 metoprolol succinate 50 mg 50 mg PO DAILY 01/17/21 02/14/21 tablet,extended release 24 hr simvastatin 20 mg tablet 20 mg PO DAILY 01/17/21 02/14/21 tamsulosin 0.4 mg capsule 0.4 mg PO DAILY 01/17/21 02/14/21 Previous Rx's Medication Instructions Recorded aspirin 81 mg tablet,delayed 81 mg PO DAILY #30 tab 01/22/21 release Results & Data (ED) Vital Signs Vital Signs - 24 hr 02/18/21 14:03 02/18/21 14:15 02/18/21 14:25 Temperature Source Oral Pulse Rate 35 L Pulse Rate [Apical] 40 L Respiratory Rate 16 16 Respiratory Effort / Characteristics Non-Labored Non-Labored Respiratory Depth Normal Normal Blood Pressure 84/38 L Blood Pressure [Right Arm] 75/40 L Blood Pressure Mean 53 Blood Pressure Mean [Right Arm] 51 Pulse Oximetry 93 91 95 Oxygen Delivery Method Room Air Room Air Nasal Cannula Oxygen Flow Rate 0 2 Sepsis Recent Fever Within 48 Hours No Sepsis New/Unexplained Change in Mental Status No Sepsis Action Taken by Nursing No Action Required Oxygen Flow Rate - Titration 2 Pulse Oximetry Post Tiitration 95 02/18/21 14:40 02/18/21 14:55 Temperature Source Pulse Rate 34 L Pulse Rate [Apical] 35 L Respiratory Rate 16 16 Respiratory Effort / Characteristics Non-Labored Respiratory Depth Normal Blood Pressure Blood Pressure [Right Arm] 68/34 L Blood Pressure Mean Blood Pressure Mean [Right Arm] 45 Pulse Oximetry 93 95 Oxygen Delivery Method Nasal Cannula Nasal Cannula Oxygen Flow Rate 2 2 Sepsis Recent Fever Within 48 Hours Sepsis New/Unexplained Change in Mental Status Sepsis Action Taken by Nursing Oxygen Flow Rate - Titration Pulse Oximetry Post Tiitration Laboratory Data Result diagrams: 02/18/21 13:50 02/18/21 13:50 Lab Results 02/18/21 02/18/21 02/18/21 Range/Units 13:50 13:50 13:50 WBC 6.09 (4.8-10.8) K/uL RBC 3.09 L (4.7-6.1) M/uL Hgb 10.0 L (14.0-18.0) g/dL Hct 30.6 L (42-52) % MCV 99.0 (80-100) fL MCH 32.4 (25-34) pg MCHC 32.7 (32-36) g/dL RDW Std Deviation 56.8 H (36.4-46.3) fL RDW Coeff of Jose A 15.9 H (11.5-14.5) % Plt Count 135 (130-400) K/uL MPV 10.6 H (7.4-10.4) fL Immature Gran % (Auto) 0.2 % Neut % (Auto) 86.6 % Lymph % (Auto) 8.9 % [place] % (Auto) 3.9 % Eos % (Auto) 0.2 % Baso % (Auto) 0.2 % Neut # (Auto) 5.28 (1.4-6.5) K/uL Lymph # (Auto) 0.54 L (1.2-3.4) K/uL [place] # (Auto) 0.24 (0.11-0.59) K/uL Eos # (Auto) 0.01 (0-0.5) K/uL Baso # (Auto) 0.01 (0-0.2) K/uL Immature Gran # (Auto) 0.01 (0.00-0.02) K/uL PT 10.3 (9.0-12.0) Seconds INR 1.0 (0.9-1.1) APTT 21.8 (21.0-31.0) Seconds PTT Ratio 0.8 Sodium 138 (136-145) mmol/L Potassium 4.5 (3.5-5.1) mmol/L Chloride 108 H (98-107) mmol/L Carbon Dioxide 17 L (21-32) mmol/L Anion Gap 13.0 H (3-11) BUN 44 H (7-18) mg/dl Creatinine 2.50 H (0.6-1.4) mg/dl Est Cr Clr Drug Dosing 24.5 ml/min Est GFR ( Amer) 26.2 ml/min Est GFR (Non-Af Amer) 22.6 ml/min BUN/Creatinine Ratio 17.4 (10-20) Glucose 427 H* (70-99) mg/dl Calcium 8.5 (8.5-10.1) mg/dl Magnesium 2.2 (1.8-2.4) mg/dl Total Bilirubin 0.8 (0.2-1) mg/dl AST 23 (15-37) U/L ALT 36 (12-78) Alkaline Phosphatase 89 (45-117) U/L Troponin I 0.030 (0-0.045) ng/ml Total Protein 6.8 (6.4-8.2) gm/dl Albumin 3.4 (3.4-5.0) gm/dl Globulin 3.4 (2.5-4.0) gm/dl Albumin/Globulin Ratio 1.0 (0.9-2) Beta-Hydroxybutyric Acd 1.96 (0.2-2.81) mg/dl TSH 1.320 (0.300-4.500) uIu/ml Lyme Disease IgG Ab (Negative) Lyme Disease IgM Ab (Negative) SARS-CoV-2 (PCR) (Negative) Influenza Type A (PCR) (Neg) Influenza Type B (PCR) (Neg) RSV (RT-PCR) (Neg) 02/18/21 02/18/21 Range/Units 13:50 14:19 WBC (4.8-10.8) K/uL RBC (4.7-6.1) M/uL Hgb (14.0-18.0) g/dL Hct (42-52) % MCV (80-100) fL MCH (25-34) pg MCHC (32-36) g/dL RDW Std Deviation (36.4-46.3) fL RDW Coeff of Jose A (11.5-14.5) % Plt Count (130-400) K/uL MPV (7.4-10.4) fL Immature Gran % (Auto) % Neut % (Auto) % Lymph % (Auto) % [place] % (Auto) % Eos % (Auto) % Baso % (Auto) % Neut # (Auto) (1.4-6.5) K/uL Lymph # (Auto) (1.2-3.4) K/uL [place] # (Auto) (0.11-0.59) K/uL Eos # (Auto) (0-0.5) K/uL Baso # (Auto) (0-0.2) K/uL Immature Gran # (Auto) (0.00-0.02) K/uL PT (9.0-12.0) Seconds INR (0.9-1.1) APTT (21.0-31.0) Seconds PTT Ratio Sodium (136-145) mmol/L Potassium (3.5-5.1) mmol/L Chloride (98-107) mmol/L Carbon Dioxide (21-32) mmol/L Anion Gap (3-11) BUN (7-18) mg/dl Creatinine (0.6-1.4) mg/dl Est Cr Clr Drug Dosing ml/min Est GFR ( Amer) ml/min Est GFR (Non-Af Amer) ml/min BUN/Creatinine Ratio (10-20) Glucose (70-99) mg/dl Calcium (8.5-10.1) mg/dl Magnesium (1.8-2.4) mg/dl Total Bilirubin (0.2-1) mg/dl AST (15-37) U/L ALT (12-78) Alkaline Phosphatase (45-117) U/L Troponin I (0-0.045) ng/ml Total Protein (6.4-8.2) gm/dl Albumin (3.4-5.0) gm/dl Globulin (2.5-4.0) gm/dl Albumin/Globulin Ratio (0.9-2) Beta-Hydroxybutyric Acd (0.2-2.81) mg/dl TSH (0.300-4.500) uIu/ml Lyme Disease IgG Ab Negative (Negative) Lyme Disease IgM Ab Negative (Negative) SARS-CoV-2 (PCR) NEGATIVE (Negative) Influenza Type A (PCR) Negative (Neg) Influenza Type B (PCR) Negative (Neg) RSV (RT-PCR) Negative (Neg) Administered Medications Dopamine HCl/Dextrose (Dopamine / D5w) 400 mg in 250 mls @ 37.013 mls/hr IV .[id number] [facility]; Protocol Stop: 03/20/21 14:14 Last Titration: 02/18/21 14:45 Dose: 10.5 mcg/kg/min, 37 mls/hr Documented by: [id number] Titration: 02/18/21 14:32 Dose: 8.5 mcg/kg/min, 30 mls/hr Documented by: [id number] Titration: 02/18/21 14:26 Dose: 6.5 mcg/kg/min, 22.9 mls/hr Documented by: [id number] Titration: 02/18/21 14:20 Dose: 4.5 mcg/kg/min, 15.9 mls/hr Documented by: [id number] Admin: 02/18/21 14:05 Dose: 2.5 mcg/kg/min, 8.8 mls/hr Documented by: [id number] Cosigned by: [id number] Discontinued Medications Atropine Sulfate (Atropine Sulfate 0.1 Mg/Ml 10ml Syr) 1 mg IV NOW STA Stop: 02/18/21 14:31 Last Admin: 02/18/21 14:30 Dose: 1 mg Documented by: [id number] Bupivacaine HCl (Bupivacaine 0.25% 30 Ml Vial) Confirm Administered Dose 30 ml .ROUTE .STK-MED ONE Stop: 02/18/21 15:00 Last Admin: 02/18/21 16:58 Dose: 30 ml Documented by: [id number] Cefazolin Sodium (Cefazolin 250 Mg/Ml 1 Gm Vial) Confirm Administered Dose 2,000 mg .ROUTE .STK-MED ONE Stop: 02/18/21 15:09 Last Admin: 02/18/21 16:59 Dose: 2,000 mg Documented by: [id number] Fentanyl Citrate (Fentanyl Citrate 100 Mcg/2 Ml Vial) Confirm Administered Dose 100 mcg .ROUTE .STK-MED ONE Stop: 02/18/21 15:09 Last Admin: 02/18/21 16:59 Dose: Not Given Documented by: [id number] Lidocaine HCl (Lidocaine 1% Local 20 Ml Vial) Confirm Administered Dose 20 ml .ROUTE .STK-MED ONE Stop: 02/18/21 15:00 Last Admin: 02/18/21 16:59 Dose: 20 ml Documented by: [id number] Midazolam HCl (Midazolam Hcl 5 Mg/Ml 1 Ml Vial) Confirm Administered Dose 5 mg .ROUTE .STK-MED ONE Stop: 02/18/21 15:09 Last Admin: 02/18/21 17:00 Dose: 5 mg Documented by: [id number] Ondansetron HCl (Ondansetron Inj 2 Mg/Ml 2 Ml Vial) 4 mg IV NOW STA Stop: 02/18/21 14:48 Last Admin: 02/18/21 14:47 Dose: 4 mg Documented by: [id number] Sterile Water (Water, Sterile For Inj 10 Ml Vial) Confirm Administered Dose 10 ml .ROUTE .STK-MED ONE Stop: 02/18/21 15:00 Last Admin: 02/18/21 16:59 Dose: 10 ml Documented by: [id number] Vancomycin HCl (Vancomycin Hcl 1000mg/20ml Vial) Confirm Administered Dose 50 mg .ROUTE .STK-MED ONE Stop: 02/18/21 15:00 Last Admin: 02/18/21 16:59 Dose: 50 mg Documented by: [id number] Imaging Data Radiologist's Impression: Chest X-Ray 02/18/21 13:55 XR chest 1V portable CLINICAL HISTORY: Weak. Shortness of breath. COMPARISON STUDY: Chest radiograph January 12 50,021 FINDINGS: Trace bilateral pleural effusions have developed. Interstitial thickening has also developed. Cardiomegaly is noted with median sternotomy wires and mediastinal surgical clips. There is no pneumothorax. There is mild left basilar opacity. IMPRESSION: 1. Interval development of interstitial pulmonary edema and trace bilateral pleural effusions. 2. Cardiomegaly. 3. Mild left basilar opacity which favors atelectasis. An infectious process could appear similar although is considered less likely. ACT 112: Negative or not required by law. Electronically signed by: Dominick Helms M.D. 02/18/2021 2:13 PM Discharge Plan Visit Data Chief Complaint: Cardiac Assessment ED Provider: Chris Barton Discharge Problem: CHB (complete heart block), Aortic stenosis, Hyperglycemia, Weakness, MARCO (acute kidney injury) Patient Disposition: Admitted As Inpatient Discharge Instructions Interventions: ED Discharge Assessment Last Done: 02/18/21 14:55 Discharge Problem: Aortic stenosis Qualifiers: Cardiac valve disease etiology: etiology unspecified Qualified Code(s): I35.0 - Nonrheumatic aortic (valve) stenosis
[2021-02-18 14:28] LABS: Partial Thromboplastin Ratio 0.8; Partial Thromboplastin Time 21.8 Seconds (21.0-31.0); Prothrombin Time 10.3 Seconds (9.0-12.0)
[2021-02-18] MEDS ORDERED: ATROPINE SULFATE 0.1 MG/ML 10ML SYR IV STA (14:30)
[2021-02-18 14:43] LABS: Albumin Level 3.4 gm/dl (3.4-5.0); BUN Creatinine Ratio 17.4 (10-20); Calcium 8.5 mg/dl (8.5-10.1); Creatinine Clr Calc Pharmacy 24.5 ml/min; Est GFR (African American) 26.2 ml/min; Est GFR (Non-African American) 22.6 ml/min; Magnesium 2.2 mg/dl (1.8-2.4); Potassium 4.5 mmol/L (3.5-5.1)
[2021-02-18 14:47] LABS: Bilirubin,Total 0.8 mg/dl (0.2-1); Globulin 3.4 gm/dl (2.5-4.0); Thyroid Stimulating Hormone 1.32 uIu/ml (0.300-4.500); Total Protein 6.8 gm/dl (6.4-8.2); Troponin I 0.03 ng/ml (0-0.045)
[2021-02-18] MEDS ORDERED: ONDANSETRON INJ 2 MG/ML 2 ML VIAL IV STA (14:47)
[2021-02-18] MEDS ORDERED: ONDANSETRON INJ 2 MG/ML 2 ML VIAL ONE (14:47)
[2021-02-18] MEDS ORDERED: WATER, STERILE FOR INJ 10 ML VIAL ONE (14:59)
[2021-02-18] MEDS ORDERED: VANCOMYCIN HCL 1000MG/20ML VIAL ONE (14:59)
[2021-02-18] MEDS ORDERED: LIDOCAINE 1% LOCAL 20 ML VIAL ONE (14:59)
[2021-02-18] MEDS ORDERED: BUPIVACAINE 0.25% 30 ML VIAL ONE (14:59)
--- NOTE | 2021-02-18 14:59 | Cardiology Consultation ---
Date of Consultation February 18, 2021 Assessment & Plan (1) CHB (complete heart block): This likely accounts for his symptoms this morning. He had an element of conduction disease leading up to acute exacerbation today. His cardiac output is severely compromised by his degree of bradycardia and in the setting of fixed obstructive valvular disease puts him in a tenuous position. He was hypotensive the emergency room. Suggested to emergent referral for temporary and permanent pacemaker. (2) MARCO (acute kidney injury): Creatinine elevated. Likely due to hypoperfusion. Perhaps the symptoms have been present for more than just this morning. Hopefully with better perfusion we will see improvement in kidney function. No evidence of significant uremia and no hyperkalemia. (3) Aortic stenosis: Severe. Likely accounting for most of the symptoms leading up to his prior catheterization. This included some element of dyspnea and shoulder and back pain with exertion. He is scheduled for evaluation at . He does have an element of mitral valve disease as well. (4) Mitral regurgitation: Moderate on echocardiogram obtained December 2020 (5) Diabetes: On metformin and glipizide. Metformin will be held in the setting of his kidney injury. (6) Anemia: Stable (7) CAD (coronary atherosclerotic disease): No obstructive disease on recent catheterization. Patent bypass grafts. Will continue aggressive secondary prevention. History of Present Illness Reason for Consultation: Symptomatic bradycardia Requesting Physician: Oralia Attending Physician: Alistair Henao MD History of Present Illness The patient is an 85-year-old gentleman with a known history of coronary disease having previously undergone surgical revascularization. He is also known to have severe aortic stenosis and has currently been referred for aortic valve replacement. Earlier today the patient developed worsening shortness of breath. He has minimal symptoms at rest but with activity became short of breath and mildly dizzy. He did not have symptoms of chest discomfort although recently has been having some symptoms of exertional neck and shoulder pain. This was attributed to his severe aortic stenosis after recent cardiac catheterization did not reveal any obstructive coronary disease. EMS was contacted based on his symptoms he was also noted to be hypotensive at the time of arrival. Atropine was administered and he was eventually started on a dopamine infusion. The patient reports feeling tired. He was somewhat nauseated during the interview today. Allergies Allergy/AdvReac Type Severity Reaction Status Date / Time No Known Allergies Allergy Mild NONE Verified 02/14/21 13:11 Home Medications Medication Instructions Recorded Confirmed Type amlodipine 10 mg tablet 10 mg PO DAILY 01/17/21 02/14/21 History finasteride 5 mg tablet 5 mg PO DAILY 01/17/21 02/14/21 History furosemide 40 mg tablet 60 mg PO DAILY 01/17/21 02/14/21 History glipizide 10 mg tablet 20 mg PO BID 01/17/21 02/14/21 History lisinopril 10 mg tablet 10 mg PO BID 01/17/21 02/14/21 History metformin 500 mg tablet 500 mg PO BID 01/17/21 02/14/21 History metoprolol succinate 50 mg 50 mg PO DAILY 01/17/21 02/14/21 History tablet,extended release 24 hr simvastatin 20 mg tablet 20 mg PO DAILY 01/17/21 02/14/21 History tamsulosin 0.4 mg capsule 0.4 mg PO DAILY 01/17/21 02/14/21 History aspirin 81 mg tablet,delayed 81 mg PO DAILY #30 tab 01/22/21 02/14/21 Rx release Patient History Medical History (Updated 02/18/21 @ 15:36 by Chris Barton M.D.) BPH w urinary obs/LUTS Coronary artery disease Diabetes Hypercholesterolemia Hypertension Lower extremity edema Subdural hematoma Surgical History (Updated 11/24/17 @ 00:36 by Tigre Dexter) History of heart bypass surgery Status post evacuation of subdural hematoma Social History Smoking Status: Never smoker Tobacco Type: Cigarettes Hx Alcohol Use: No Hx Substance Use: No Preferred Language: Malian Communication Ability: Effective Civil Division Deputy Sheriff Required: No Beliefs That Will Affect Care: None marital status: Current Living Situation: Family current occupational status: employed and retired How many Children do You have: 3 Feels Safe at Home: Yes Assistive Devices: None Review of Systems Review of Systems: Per HPI. No recent fevers or chills. No coughing. No orthopnea. Physical Exam Physical Exam: The patient appeared tired. He did answer questions appropriately. He was oriented oriented. Mood and affect appeared normal. HEENT: Pupils are equal and reactive to light and accommodation. Extraocular movements are intact. The sclerae are anicteric. Neuro: Cranial nerves intact Lungs: Normal respiratory effort. Cardiac: Bradycardia with systolic ejection murmur. Pulses: The patient has palpable radial pulses bilaterally that are equal in intensity Extremities: There was no evidence of hypoperfusion. There is no cyanosis or clubbing. Mild lower extremity edema. Skin: I did not appreciate any rashes on examination today. Results & Data ([facility]) Vital Signs (Past 12 Hours) Vital Signs Pulse Pulse Resp BP BP Pulse Ox 02/18/21 14:55 34 L 16 95 02/18/21 14:40 35 L 16 68/34 L 93 02/18/21 14:25 40 L 16 75/40 L 95 02/18/21 14:15 91 02/18/21 14:03 35 L 16 84/38 L 93 Laboratory Results Abnormal Lab Results 02/18/21 02/18/21 02/18/21 13:50 13:50 13:50 WBC 6.09 RBC 3.09 L Hgb 10.0 L Hct 30.6 L MCV 99.0 MCH 32.4 MCHC 32.7 RDW Std Deviation 56.8 H RDW Coeff of Jose A 15.9 H Plt Count 135 MPV 10.6 H Immature Gran % (Auto) 0.2 Neut % (Auto) 86.6 Lymph % (Auto) 8.9 [place] % (Auto) 3.9 Eos % (Auto) 0.2 Baso % (Auto) 0.2 Neut # (Auto) 5.28 Lymph # (Auto) 0.54 L [place] # (Auto) 0.24 Eos # (Auto) 0.01 Baso # (Auto) 0.01 Immature Gran # (Auto) 0.01 PT 10.3 INR 1.0 APTT 21.8 PTT Ratio 0.8 Sodium 138 Potassium 4.5 Chloride 108 H Carbon Dioxide 17 L Anion Gap 13.0 H BUN 44 H Creatinine 2.50 H Est Cr Clr Drug Dosing 24.5 Est GFR ( Amer) 26.2 Est GFR (Non-Af Amer) 22.6 BUN/Creatinine Ratio 17.4 Glucose 427 H* POC Glucose Calcium 8.5 Magnesium 2.2 Total Bilirubin 0.8 AST 23 ALT 36 Alkaline Phosphatase 89 Troponin I 0.030 Total Protein 6.8 Albumin 3.4 Globulin 3.4 Albumin/Globulin Ratio 1.0 Beta-Hydroxybutyric Acd 1.96 TSH 1.320 Lyme Disease IgG Ab Lyme Disease IgM Ab SARS-CoV-2 (PCR) Influenza Type A (PCR) Influenza Type B (PCR) RSV (RT-PCR) 02/18/21 02/18/21 02/18/21 13:50 14:19 16:55 WBC RBC Hgb Hct MCV MCH MCHC RDW Std Deviation RDW Coeff of Jose A Plt Count MPV Immature Gran % (Auto) Neut % (Auto) Lymph % (Auto) [place] % (Auto) Eos % (Auto) Baso % (Auto) Neut # (Auto) Lymph # (Auto) [place] # (Auto) Eos # (Auto) Baso # (Auto) Immature Gran # (Auto) PT INR APTT PTT Ratio Sodium Potassium Chloride Carbon Dioxide Anion Gap BUN Creatinine Est Cr Clr Drug Dosing Est GFR ( Amer) Est GFR (Non-Af Amer) BUN/Creatinine Ratio Glucose POC Glucose 330 H* Calcium Magnesium Total Bilirubin AST ALT Alkaline Phosphatase Troponin I Total Protein Albumin Globulin Albumin/Globulin Ratio Beta-Hydroxybutyric Acd TSH Lyme Disease IgG Ab Negative Lyme Disease IgM Ab Negative SARS-CoV-2 (PCR) NEGATIVE Influenza Type A (PCR) Negative Influenza Type B (PCR) Negative RSV (RT-PCR) Negative Diagnostic Findings Chest x-ray obtained the time admission suggested pulmonary edema with cardiomegaly. EKG obtained the time admission revealed complete heart block Cardiac catheterization performed 01/21/2021 revealed severe left main coronary disease with patent CLEARY to the LAD and saphenous vein graft to OM1. Right coronary was a codominant system with some luminal irregularities but no obstructive disease. Echocardiogram performed 01/18/2021 revealed normal LV systolic function with ejection fraction 55-60%. Mild LVH. Mild left atrial dilation. Severe valvular aortic stenosis. Moderate mitral regurgitation. Mild mitral stenosis. PG Care Time/CCT Total # of Minutes Spent Total Time Spent with Patient: Total time spent is greater than 50% in coordination of care (as documented) at patient's floor/unit and/or counseling patient: Coding Level of Care Code INT OBSERVATION CARE 70M LVL 3 Diagnoses CHB (complete heart block) I44.2 MARCO (acute kidney injury) N17.9 Aortic stenosis I35.0 Cardiac valve disease etiology: etiology unspecified Mitral regurgitation I34.0 Diabetes E11.9 Anemia D64.9 Anemia type: unspecified type CAD (coronary atherosclerotic disease) I25.810 Associated angina: unspecified whether angina present Coronary Disease-Associated Artery/Lesion type: bypass graft [place] vs. transplanted heart: [place] heart (1) Aortic stenosis Cardiac valve disease etiology: etiology unspecified Qualified Code(s): I35.0 - Nonrheumatic aortic (valve) stenosis (2) Anemia Anemia type: unspecified type Qualified Code(s): D64.9 - Anemia, unspecified (3) CAD (coronary atherosclerotic disease) Associated angina: unspecified whether angina present Coronary Disease- Associated Artery/Lesion type: bypass graft [place] vs. transplanted heart: [place] heart Qualified Code(s): I25.810 - Atherosclerosis of coronary artery bypass graft(s) without angina pectoris
--- NOTE | 2021-02-18 15:00 | Pre Anesthesia Assessment ---
Date of Service February 18, 2021 Pre Sedation Assessment Vital Signs Pulse Pulse Resp BP BP Pulse Ox 02/18/21 14:55 34 L 16 95 02/18/21 14:40 35 L 16 68/34 L 93 02/18/21 14:25 40 L 16 75/40 L 95 02/18/21 14:15 91 02/18/21 14:03 35 L 16 84/38 L 93 Cardiovascular + bradycardic Respiratory + respiratory effort normal Pre-Sedation Airway Assessment Smoking Status: Never smoker Hx Sleep Apnea: No Mallampati Class: III ASA: ASA4 Procedure Planning Contraindications for Sedation: none Current Medications Reviewed: Yes Notes The planned sedation has been discussed with the patient. Informed Consent was obtained. I have identified the patient, determined the appropriateness of sedation and have assessed the patient immediately prior to the procedure. All medicine(s) and interventions are by my order.
[2021-02-18 15:01] LABS: Beta-Hydroxybutyrate 1.96 mg/dl (0.2-2.81)
[2021-02-18 15:04] LABS: Influenza A virus by PCR Negative (Neg); Influenza B virus by PCR Negative (Neg); RSV by PCR Negative (Neg); SARS CoV2 RNA(COVID-19) InHosp NEGATIVE (Negative)
[2021-02-18] MEDS ORDERED: fentaNYL citrate 100 MCG/2 ML VIAL ONE (15:08)
[2021-02-18] MEDS ORDERED: MIDAZOLAM HCL 5 MG/ML 1 ML VIAL ONE (15:08)
[2021-02-18 15:33] LABS: Lyme Ab IgG w/WB Rflx Negative (Negative); Lyme Ab IgM w/WB Rflx Negative (Negative)
--- NOTE | 2021-02-18 16:25 | Post Anesthesia Assessment ---
Date of Service February 18, 2021 Post Sedation Assessment Vital Signs Pulse Pulse Resp BP BP Pulse Ox 02/18/21 14:55 34 L 16 95 02/18/21 14:40 35 L 16 68/34 L 93 02/18/21 14:25 40 L 16 75/40 L 95 02/18/21 14:15 91 02/18/21 14:03 35 L 16 84/38 L 93 Recovery Score Activity: Moves 4 extremities Respiration: Deep Breath/Cough Circulation: +/-20% PreAnes Value Consciousness: Arouseable (by name) Oxygen Saturation: O2 needed for >90% Discharge Sedation Level of Care: Fast Track Phase II Post Sedation Plan On clinical assessment, the patient appears to have tolerated the sedation without complications. Patient is recovering as anticipated. Patient will continue to be monitored by nursing and may be discharged when sedation discharge criteria are met per below protocol. Upon Completions of procedure up to 15 minutes continue every 5 minute vital signs and the P.A.R. score; then discharge to a Phase I or Fast Track to Phase II per the following guidelines: * Discharge Patient to appropriate Phase II area if PAR is 8 or greater or return to pre- procedure baseline. The post - procedure orders will be as directed. * If PAR score is less than 8 or not return to pre-procedure baseline then patient will follow Phase I monitoring till PAR is reached for Phase II. The Phase I may be done in procedure room or may call to secure a Phase I area. * If naloxone or flumazenil are used for reversal, hold in Phase I for continued monitoring from when last reversal dose was given for a minimum of 60 minutes or longer pending the nurse and/or physician discretion of patient condition before discharge to Phase II. Please call the Sedation Physician to re-evaluate and complete post-note for discharge to Phase II area. Do NOT discharge from procedure sedation or Phase 1 until post- sedation evaluation note is complete by procedure /sedation MD Sedation Discharge Instructions to be given to the patient at discharge to home.
[2021-02-18] MEDS ORDERED: oxyCODONE HCL IR 5 MG TAB (IMMEDIATE RELEASE) PO PRN (16:26)
[2021-02-18] MEDS ORDERED: ACETAMINOPHEN 325 MG TAB PO PRN (16:26)
--- NOTE | 2021-02-18 16:26 | Electrophysiology Report ---
Date of Service February 18, 2021 Electrophysiology Procedure Electrophysiology Procedure Report Procedure performed: Implantation of temporary transvenous pacemaker, ultrasound-guided vascular access, placement of permanent dual-chamber pacemaker Staff it technical specialist: Cali Rodriguez MD Indication: The patient is an 85-year-old gentleman with a history of coronary artery disease previously undergoing surgical revascularization as well as severe aortic stenosis who presented with complete heart block and hypotension. He was taken emergently to the lecture physiology suite where a temporary transvenous pacemaker was placed in an attempt to improve hemodynamics. Once the patient was stabilized a permanent device was also implanted. Procedure in detail: The patient was informed of the risks benefits and alternatives to the intended procedure and she wished to proceed. He was taken to the electrophysiology suite in a fasting state. A preoperative antibiotic had been administered. The patient was monitored electrocardiographically throughout today's procedure and conscious sedation was administered per protocol. The right internal jugular area was prepped and draped in usual sterile fashion. This area was anesthetized using subcutaneous ministration of lidocaine solution. Under ultrasound guidance the right internal jugular vein was accessed using modified Seldinger technique. Sheath was placed over guidewire at the site and use facilitate passage of a balloontipped pacing wire under fluoroscopic guidance. Adequate threshold was obtained and the wire was secured into place. At this point attention was focused on the permanent implant. The left upper pectoral area was prepped and draped in usual sterile fashion. This area was anesthetized using subcutaneous ministration of a lidocaine and Marcaine solution. An incision was made at the site and carried down to the prepectoralis fascia using sharp dissection. Electrocautery was also employed for dissection as well as for hemostasis. A device pocket was fashioned in the tissues above the pectoralis muscle. The left axillary vein was accessed twice using modified Seldinger technique. Sheath was placed over guidewire at the site and use facilitate passage of a guiding catheter for placement of a intraventricular septal pacing lead. Adequate waveforms were obtained prior to active-fixation of the pacing lead in the interventricular septum. Adequate sensing and threshold parameters were obtained prior to removal of the guiding catheter. A sheath was placed over the remaining guidewire and used to facilitate passage of a pacing wire to the right atrium under fluoroscopic guidance. Adequate sensing and threshold parameters were obtained prior to active-fixation of this lead to the endocardial surface. The proximal portions of the leads were then sutured the prepectoralis fascia using nonabsorbable suture. The device pocket was irrigated with antibiotic solution. The leads were then attached to the device. The device and leads were then placed in the pocket and pocket was closed in 3 layers of absorbable suture. Steri-Strips and sterile dressing were applied. The device was tested noninvasively prior to conclusion the procedure. The temporary transvenous pacer was then removed under fluoroscopic guidance. The sheath was also removed and hemostasis was achieved at the site of IJ access using manual pressure. The patient tolerated procedure well there no immediate complications. Equipment used: New pulse generator: Perforator [employer]. Model number: [id number] serial number [id number] Right atrial lead: Perforator Typist [employer]. Model number: [id number] serial number [id number] Right ventricular lead: Perforator Typist [employer]. Model number: 3830 serial number [id number] Measured data: Right atrial lead: P waves measured 3.4 mV. Pacing threshold 1.5 V at 0.4 ms with a pacing appearance of 456 ohms Right ventricular lead: No intrinsic R waves were measured. Pacing threshold was 1 V at 0.4 ms with a pacing impedance of 722 ohms Impression: Successful implantation of dual-chamber permanent pacemaker with left bundle pacing lead [facility] Electrophysiology codes Pacing Procedure 1: Pacin Insert/Replace Pacer A & V Miscellaneous Procedures Procedure 1: EP Miscellaneous: 20329 Pacing temp percut, single
[2021-02-18] MEDS ORDERED: ONDANSETRON INJ 2 MG/ML 2 ML VIAL IV PRN (16:53)
[2021-02-18] MEDS ORDERED: ALUMINUM/MAGNESIUM SUSP 30 ML UDC PO PRN (16:53)
[2021-02-18] MEDS ORDERED: MAGNESIUM HYDROXIDE SUSP 30 ML UDC PO PRN (16:53)
[2021-02-18] MEDS ORDERED: FUROSEMIDE 40 MG/4 ML VIAL IV ONE (18:03)
[2021-02-18] MEDS ORDERED: PHARMACY GLYCEMIC MGMT CONSULT PRN (18:03)
[2021-02-18] MEDS ORDERED: CARBOHYDRATES FOR HYPOGLYCEMIA PO PRN (19:00)
[2021-02-18] MEDS ORDERED: GLUCOSE 10 TABS/TUBE PO PRN (19:00)
[2021-02-18] MEDS ORDERED: INSULIN GLARGINE SOLOSTAR 100 UNITS/ML 3 ML PEN SC ONE (19:00)
[2021-02-18] MEDS ORDERED: GLUCOSE 40% GEL 15 GM TUBE PO PRN (19:00)
[2021-02-18] MEDS ORDERED: DEXTROSE 50% 50 ML SYRINGE IV PRN (19:00)
[2021-02-18] MEDS ORDERED: GLUCAGON FOR INJ 1 MG VIAL SQ PRN (19:00)
[2021-02-18] MEDS ORDERED: ICU PROTOCOL FOR HYPERGLYCEMIA PRN (19:32)
--- NOTE | 2021-02-18 19:34 | Critical Care Consultation ---
Date of Consultation February 18, 2021 Assessment & Plan (1) Admitted to intensive care unit: Reason Critically Ill: 85-year-old male presented with complete heart block who is status post permanent pacemaker placement requiring close hemodynamic monitoring overnight. Patient volume overloaded, but has been responding to Lasix dosing. NEURO - * CAM ICU: NEGATIVE CARDIAC/VASCULAR - * Complete heart block status post permanent pacemaker placement: * Doing well status post intervention. Heart rate and blood pressure appropriate. * Diuresing well. Additional Lasix if urine output were to drop off. * CAD, hypertension, hyperlipidemia: * Continue current medications per cardiology. * Monitor on telemetry. RESPIRATORY - * Hypoxic respiratory failure: * Likely secondary to CHF with volume overload. * Saturating well with 3 L nasal cannula. * Diuresing well. * NIPPV if needed. GI/NUTRITION - * Progress diet as tolerated. RENAL/LYTES - * MARCO: * ?? Secondary to poor forward flow. Anticipate improvement with pacer and diuretics. * Making great urine. * Monitor lytes, replace as needed. - * [place] in place - Strict I&Os. ENDO - * DM * BSGs per unit protocol. ISS --> gtt per unit policy. HEME - * Stable H&H ID - * No concerns for infectious contribution. LINES/IV ACCESS - * PIVs x2 DVT PROPHYLAXIS - * Per cardiology recommendations * SCDs I have personally spent 41 minutes of critical care time in the direct management of this patient. This is a life/limb threatening event. This includes time spent evaluating patient, direct bedside care, chart review, placing orders, interpretation of diagnostic studies, discussion with consultants, patient, and family members, as well as other required patient management activities. This time is exclusive of all separately billable procedures, and teaching time and separate from and in addition to any other critical care service time. Thank you for allowing us to participate in the care of this patient. Please refer to my attending physician's documentation for any further recommendations. (2) CHB (complete heart block): (3) CHF (congestive heart failure): (4) Pulmonary edema: (5) Hypoxia: (6) Hyperglycemia: (7) MARCO (acute kidney injury): (8) Hypertension: (9) Hypercholesterolemia: (10) Diabetes: (11) CAD (coronary atherosclerotic disease): Supervising Physician Co-Signing Physician Notes I have personally evaluated and examined this patient. I agree with assessment and plan of Loulou Sorensen PA-C. Patient stable for downgrade out of ICU History of Present Illness Attending Physician: Clai Rodriguez MD History of Present Illness Patient is an 85-year-old male with a significant past medical history of coronary artery disease status post CABG and PTCI, hypertension, hyperlipidemia, mitral regurgitation, aortic stenosis, BPH, and diabetes who presented to the emergency department with ongoing symptoms of shortness of breath for the last several days. Upon arrival in the emergency department, the patient was found to be in complete heart block. He was taken emergently to the catheterization suite where he underwent placement of permanent pacemaker. Patient had received IV fluid boluses secondary to hypotension and bradycardia. He presents with a degree of volume overload requiring supplemental oxygen 3 L nasal cannula. He did receive IV dose of Lasix for volume overload and has been diuresing well. Upon assessment in the ICU, the patient is awake, alert, and oriented. He is not tachypneic. He reports that he feels much better. He feels that he is having some ongoing breathing difficulties, but reports to have improved since earlier today. He previously reported some pain across his upper back which he reports is resolved at this point as well. Otherwise, patient offers no complaints of pain at this time. Specifically, the patient denies complaints of headaches, dizziness, lightheadedness, chest pain, palpitations, pleuritic pain, nausea, vomiting, or abdominal discomfort. Allergies Allergy/AdvReac Type Severity Reaction Status Date / Time No Known Allergies Allergy Mild NONE Verified 02/14/21 13:11 Home Medications Medication Instructions Recorded Confirmed Type amlodipine 10 mg tablet 10 mg PO DAILY 01/17/21 02/14/21 History finasteride 5 mg tablet 5 mg PO DAILY 01/17/21 02/14/21 History furosemide 40 mg tablet 60 mg PO DAILY 01/17/21 02/14/21 History glipizide 10 mg tablet 20 mg PO BID 01/17/21 02/14/21 History lisinopril 10 mg tablet 10 mg PO BID 01/17/21 02/14/21 History metformin 500 mg tablet 500 mg PO BID 01/17/21 02/14/21 History metoprolol succinate 50 mg 50 mg PO DAILY 01/17/21 02/14/21 History tablet,extended release 24 hr simvastatin 20 mg tablet 20 mg PO DAILY 01/17/21 02/14/21 History tamsulosin 0.4 mg capsule 0.4 mg PO DAILY 01/17/21 02/14/21 History aspirin 81 mg tablet,delayed 81 mg PO DAILY #30 tab 01/22/21 02/14/21 Rx release Patient History Medical History BPH w urinary obs/LUTS Coronary artery disease Diabetes Hypercholesterolemia Hypertension Lower extremity edema Subdural hematoma Surgical History History of heart bypass surgery Status post evacuation of subdural hematoma Social History Smoking Status: Former smoker Tobacco Type: Cigarettes Hx Alcohol Use: No Hx Substance Use: No Preferred Language: Zambian Communication Ability: Effective Olive Grower Required: No Beliefs That Will Affect Care: None marital status: Current Living Situation: Family current occupational status: employed and retired How many Children do You have: 3 Feels Safe at Home: Yes Assistive Devices: None Review of Systems Review of Systems: A complete 10 point review of systems was reviewed with the patient with pertinent positives and negatives as per history of present illness. All else were negative. Physical Exam Physical Exam: VITAL SIGNS - Vital signs and nursing notes were reviewed. GENERAL - 85-year-old male appearing his stated age who is in no acute distress. Communicates well with provider and answers questions appropriately. HEAD - NC/AT. EYES - PERRL with EOMI bilaterally. Sclera anicteric. EARS - No deformities of external structures noted on gross examination bilatera lly. NOSE - Midline and without cyanosis. No epistaxis or purulent drainage noted. MOUTH/OROPHARYNX - Without perioral cyanosis. Buccal mucosa pink and moist and without leukoplakia. NECK - Neck with FROM. LUNGS - Chest wall symmetric without accessory muscle use, intercostals retractions, or central cyanosis. Diffuse rales noted on exam. CARDIAC - RRR with S1/S2. PRABHAKAR noted to the RIGHT sternal border. No reproducible tenderness to palpation appreciated over the anterior chest wall. ABDOMEN - Abdominal contour obese without pulsations or visible masses. BS normoactive all four quadrants. No tenderness, palpable masses, hepatosplenomegaly, or ascites noted. EXTREMITIES - No clubbing or peripheral cyanosis. Moderate pretibial edema present. +3/5 radial and dorsalis pedis pulses palpated throughout. +5/5 strength noted in UE/LE bilaterally. NEUROLOGIC - Cranial nerves II through XII grossly intact. Sensory intact to light touch throughout. PSYCH - A&Ox3 and cooperates fully with examiner. Pt is very pleasant and interacts well with examiner. Results & Data Results & Data ([facility] [place]) Vital Signs (Past 12 Hours) Vital Signs Temp Pulse Pulse Resp BP BP Pulse Ox 02/18/21 18:30 36.6 C 77 20 127/75 95 02/18/21 18:11 37.1 C 76 22 125/78 97 02/18/21 17:41 78 20 120/70 94 02/18/21 17:11 37.0 C 75 18 107/77 92 02/18/21 16:56 36.9 C 74 18 119/70 92 02/18/21 16:53 36.4 C L 75 20 123/64 87 L 02/18/21 14:55 34 L 16 95 02/18/21 14:40 35 L 16 68/34 L 93 02/18/21 14:25 40 L 16 75/40 L 95 02/18/21 14:15 91 02/18/21 14:03 35 L 16 84/38 L 93 Pulse Ox 02/18/21 18:30 02/18/21 18:11 02/18/21 17:41 02/18/21 17:11 02/18/21 16:56 02/18/21 16:53 87 L 02/18/21 14:55 02/18/21 14:40 02/18/21 14:25 02/18/21 14:15 02/18/21 14:03 Coding Level of Care Code Critical Care 1st 30-74 mins Diagnoses Admitted to intensive care unit Z78.9 CHB (complete heart block) I44.2 CHF (congestive heart failure) I50.9 Pulmonary edema J81.1 Hypoxia R09.02 Hyperglycemia R73.9 MARCO (acute kidney injury) N17.9 Hypertension I10 Hypercholesterolemia E78.00 Diabetes E11.9 CAD (coronary atherosclerotic disease) I25.810 Associated angina: unspecified whether angina present Coronary Disease-Associated Artery/Lesion type: bypass graft [place] vs. transplanted heart: false pass heart Time Spent (min) 41 (1) CAD (coronary atherosclerotic disease) Associated angina: unspecified whether angina present Coronary Disease- Associated Artery/Lesion type: bypass graft [place] vs. transplanted heart: false pass heart Qualified Code(s): I25.810 - Atherosclerosis of coronary artery bypass graft(s) without angina pectoris
[2021-02-18] MEDS ORDERED: glipiZIDE 5 MG TAB PO SCH (21:00)
[2021-02-18] MEDS: INSULIN ASPART PER UNIT SC SCH ×2 (21:10→22:30)
[2021-02-18] MEDS ORDERED: COUGH DROP (SUGAR FREE) LOZ 24 LOZ/1 BOX BUCCAL ONE (21:17)
[2021-02-18] MEDS ORDERED: ceFAZolin 1000MG 1,000 MG/7.5 ML SYR IV SCH (23:30)
[2021-02-19] MEDS: INSULIN ASPART PER UNIT SC SCH ×6 (00:18→20:35)
[2021-02-19] MEDS: ceFAZolin 2000MG 2,000 MG/15 ML SYR IV SCH ×2 (00:23→08:07)
[2021-02-19 05:16] LABS: Basophils # (auto) 0.01 K/uL (0-0.2); Basophils % (auto) 0.1 %; Eosinophils # (auto) 0.06 K/uL (0-0.5); Eosinophils % (auto) 0.9 %; Hematocrit (blood only) 28.7 % (42-52); Hemoglobin 9.7 g/dL (14.0-18.0); Immature Granulocytes # (auto) 0.02 K/uL (0.00-0.02); Immature Granulocytes % (auto) 0.3 %; Lymphocytes # (auto) 0.77 K/uL (1.2-3.4); Mean Corpuscular Hgb Conc 33.8 g/dL (32-36); Mean Corpuscular Volume 94.7 fL (80-100); Mean Platelet Volume 9.7 fL (7.4-10.4); Monocytes # (auto) 0.46 K/uL (0.11-0.59); Monocytes % (auto) 6.6 %; Neutrophils # (auto) 5.69 K/uL (1.4-6.5); Neutrophils % (auto) 81.1 %; Platelet Count 132 K/uL (130-400); RDW Coefficient of Variation 15.6 % (11.5-14.5); RDW Standard Deviation 54.4 fL (36.4-46.3); Red Blood Count 3.03 M/uL (4.7-6.1); White Blood Count 7.01 K/uL (4.8-10.8)
[2021-02-19 05:50] LABS: Est GFR (African American) 35.1 ml/min; Est GFR (Non-African American) 30.3 ml/min; Potassium 3.6 mmol/L (3.5-5.1)
[2021-02-19 05:51] LABS: Calcium 8.5 mg/dl (8.5-10.1); Magnesium 2.2 mg/dl (1.8-2.4); Phosphorus 4.2 mg/dl (2.5-4.9)
[2021-02-19] MEDS: FUROSEMIDE 20 MG TAB PO SCH (08:05)
[2021-02-19] MEDS: FINASTERIDE 5 MG TAB PO SCH (08:05)
[2021-02-19] MEDS: ASPIRIN 81 MG ECTAB PO SCH (08:05)
[2021-02-19] MEDS: TAMSULOSIN HCL 0.4 MG CAP PO SCH (08:05)
[2021-02-19] MEDS: SIMVASTATIN 20 MG TAB PO SCH (08:05)
--- NOTE | 2021-02-19 08:46 | XRay Report ---
TWO VIEW CHEST CLINICAL HISTORY: Pacemaker implantation. FINDINGS: PA and lateral chest radiographs are compared to study dated 02/18/2021. The patient is sta tus post midline sternotomy. A 2-lead cardiac pacemaker has been placed and partially obscures the le ft upper chest. Leads project over the right atrial appendage and the right ventricle. The heart is e nlarged noting atherosclerotic calcification of the thoracic aorta. Pulmonary vascular congestion has modestly worsened as compared to yesterday. There are small pleural effusions with bibasilar consoli dation. There is no pneumothorax. The skeletal structures are osteopenic. There are healed right-side d rib fractures. Spondylotic change is noted throughout the thoracic spine. IMPRESSION: 1. A 2-lead cardiac pacemaker has been implanted as above. No pneumothorax is identified post procedu re. 2. Cardiomegaly. Pulmonary vascular congestion appears worsened as compared to yesterday. 3. Small pleural effusions with bibasilar consolidation ACT 112: Negative or not required by law. Electronically signed by: Shon Zhao M.D. 02/19/2021 8:45 AM
[2021-02-19] MEDS ORDERED: ICU PROTOCOL FOR HYPERGLYCEMIA SCH (09:00)
--- NOTE | 2021-02-19 10:30 | Cardiology Progress Note ---
Date of Service February 19, 2021 Assessment & Plan (1) CHB (complete heart block): Plan: Resolved status post pacemaker placement yesterday. His hemodynamics improved almost immediately. Doing well today. Will restart some of his usual outpatient medications. (2) MARCO (acute kidney injury): Plan: Creatinine improved. Likely related to poor perfusion. Will continue to monitor over the next 24 hours. (3) Aortic stenosis: Plan: Severe. Likely accounting for most of the symptoms leading up to his prior catheterization. This included some element of dyspnea and shoulder and back pain with exertion. He is scheduled for evaluation at [facility]. He does have an element of mitral valve disease as well. (4) Mitral regurgitation: Plan: Moderate on echocardiogram obtained December 2020 (5) Diabetes: Plan: On metformin and glipizide. Metformin will be held in the setting of his kidney injury. Improved glycemic control with occasional insulin use as an inpatient. (6) Anemia: Plan: Stable (7) CAD (coronary atherosclerotic disease): Plan: No obstructive disease on recent catheterization. Patent bypass grafts. Will continue aggressive secondary prevention. (8) Urinary retention: Plan: Patient had some difficulty urinating yesterday in a large volume in his bladder. De La Paz catheter was placed. Will attempt removal today. He will continue on his finasteride and tamsulosin Admission and Anticipated Discharge Date Admission Date: February 18, 2021 Subjective This morning patient claimed he feeling well. Minimal discomfort at the device implant site. Apparently he had some difficulty urinating last night and a De La Paz catheter was placed. His breathing is improved. He has been ambulatory to a chair. He denies dizziness or lightheadedness. No sense of palpitation. Review of Systems Review of Systems: Per HPI Physical Exam Physical Exam: The patient is alert and oriented. Mood and affect appeared normal. He answered all questions appropriately. HEENT: Pupils are equal and reactive to light and accommodation. Extraocular movements are intact. The sclerae are anicteric. Neuro: Cranial nerves intact Lungs: Occasional crackles in the bases. Normal respiratory effort. No expiratory wheezing. Cardiac: Heart demonstrates a regular rate and rhythm. Normal S1 and S2. High-pitched crescendo systolic murmur Chest: Device implant site with minimal ecchymosis. No drainage. No hematoma. Pulses: The patient has palpable radial pulses bilaterally that are equal in intensity Extremities: There was no evidence of hypoperfusion. There is no cyanosis or clubbing. There is no edema. Skin: I did not appreciate any rashes on examination today. Results & Data ([facility]) Vital Signs (Past 12 Hours) Vital Signs Temp Pulse Resp BP Pulse Ox Pulse Ox 02/19/21 10:00 82 18 118/68 96 02/19/21 08:00 37.2 C 88 16 114/60 98 97 02/19/21 02:00 74 23 117/74 98 02/19/21 01:00 78 18 116/65 98 02/19/21 00:00 75 21 125/66 98 02/18/21 23:01 75 19 113/52 L 97 02/18/21 23:00 78 15 97 Laboratory Results Abnormal Lab Results 02/18/21 02/18/21 02/18/21 13:50 13:50 13:50 WBC 6.09 RBC 3.09 L Hgb 10.0 L Hct 30.6 L MCV 99.0 MCH 32.4 MCHC 32.7 RDW Std Deviation 56.8 H RDW Coeff of Jose A 15.9 H Plt Count 135 MPV 10.6 H Immature Gran % (Auto) 0.2 Neut % (Auto) 86.6 Lymph % (Auto) 8.9 [place] % (Auto) 3.9 Eos % (Auto) 0.2 Baso % (Auto) 0.2 Neut # (Auto) 5.28 Lymph # (Auto) 0.54 L [place] # (Auto) 0.24 Eos # (Auto) 0.01 Baso # (Auto) 0.01 Immature Gran # (Auto) 0.01 PT 10.3 INR 1.0 APTT 21.8 PTT Ratio 0.8 Sodium 138 Potassium 4.5 Chloride 108 H Carbon Dioxide 17 L Anion Gap 13.0 H BUN 44 H Creatinine 2.50 H Est Cr Clr Drug Dosing 24.5 Est GFR ( Amer) 26.2 Est GFR (Non-Af Amer) 22.6 BUN/Creatinine Ratio 17.4 Glucose 427 H* POC Glucose Fasting Glucose Calcium 8.5 Phosphorus Magnesium 2.2 Total Bilirubin 0.8 AST 23 ALT 36 Alkaline Phosphatase 89 Troponin I 0.030 Total Protein 6.8 Albumin 3.4 Globulin 3.4 Albumin/Globulin Ratio 1.0 Beta-Hydroxybutyric Acd 1.96 TSH 1.320 Nasal Screen MRSA (PCR) Lyme Disease IgG Ab Lyme Disease IgM Ab SARS-CoV-2 (PCR) Influenza Type A (PCR) Influenza Type B (PCR) RSV (RT-PCR) 02/18/21 02/18/21 02/18/21 13:50 14:19 16:55 WBC RBC Hgb Hct MCV MCH MCHC RDW Std Deviation RDW Coeff of Jose A Plt Count MPV Immature Gran % (Auto) Neut % (Auto) Lymph % (Auto) [place] % (Auto) Eos % (Auto) Baso % (Auto) Neut # (Auto) Lymph # (Auto) [place] # (Auto) Eos # (Auto) Baso # (Auto) Immature Gran # (Auto) PT INR APTT PTT Ratio Sodium Potassium Chloride Carbon Dioxide Anion Gap BUN Creatinine Est Cr Clr Drug Dosing Est GFR ( Amer) Est GFR (Non-Af Amer) BUN/Creatinine Ratio Glucose POC Glucose 330 H* Fasting Glucose Calcium Phosphorus Magnesium Total Bilirubin AST ALT Alkaline Phosphatase Troponin I Total Protein Albumin Globulin Albumin/Globulin Ratio Beta-Hydroxybutyric Acd TSH Nasal Screen MRSA (PCR) Lyme Disease IgG Ab Negative Lyme Disease IgM Ab Negative SARS-CoV-2 (PCR) NEGATIVE Influenza Type A (PCR) Negative Influenza Type B (PCR) Negative RSV (RT-PCR) Negative 02/18/21 02/18/21 02/19/21 20:15 21:04 00:16 WBC RBC Hgb Hct MCV MCH MCHC RDW Std Deviation RDW Coeff of Jose A Plt Count MPV Immature Gran % (Auto) Neut % (Auto) Lymph % (Auto) [place] % (Auto) Eos % (Auto) Baso % (Auto) Neut # (Auto) Lymph # (Auto) [place] # (Auto) Eos # (Auto) Baso # (Auto) Immature Gran # (Auto) PT INR APTT PTT Ratio Sodium Potassium Chloride Carbon Dioxide Anion Gap BUN Creatinine Est Cr Clr Drug Dosing Est GFR ( Amer) Est GFR (Non-Af Amer) BUN/Creatinine Ratio Glucose POC Glucose 301 H* 127 H Fasting Glucose Calcium Phosphorus Magnesium Total Bilirubin AST ALT Alkaline Phosphatase Troponin I Total Protein Albumin Globulin Albumin/Globulin Ratio Beta-Hydroxybutyric Acd TSH Nasal Screen MRSA (PCR) Negative Lyme Disease IgG Ab Lyme Disease IgM Ab SARS-CoV-2 (PCR) Influenza Type A (PCR) Influenza Type B (PCR) RSV (RT-PCR) 02/19/21 02/19/21 02/19/21 04:17 04:17 07:13 WBC 7.01 RBC 3.03 L Hgb 9.7 L Hct 28.7 L MCV 94.7 MCH 32.0 MCHC 33.8 RDW Std Deviation 54.4 H RDW Coeff of Jose A 15.6 H Plt Count 132 MPV 9.7 Immature Gran % (Auto) 0.3 Neut % (Auto) 81.1 Lymph % (Auto) 11.0 [place] % (Auto) 6.6 Eos % (Auto) 0.9 Baso % (Auto) 0.1 Neut # (Auto) 5.69 Lymph # (Auto) 0.77 L [place] # (Auto) 0.46 Eos # (Auto) 0.06 Baso # (Auto) 0.01 Immature Gran # (Auto) 0.02 PT INR APTT PTT Ratio Sodium 142 Potassium 3.6 D Chloride 113 H Carbon Dioxide 21 Anion Gap 8.0 BUN 41 H Creatinine 1.96 H D Est Cr Clr Drug Dosing 31.0 Est GFR ( Amer) 35.1 Est GFR (Non-Af Amer) 30.3 BUN/Creatinine Ratio Glucose POC Glucose 77 Fasting Glucose 62 L Calcium 8.5 Phosphorus 4.2 Magnesium 2.2 Total Bilirubin AST ALT Alkaline Phosphatase Troponin I Total Protein Albumin Globulin Albumin/Globulin Ratio Beta-Hydroxybutyric Acd TSH Nasal Screen MRSA (PCR) Lyme Disease IgG Ab Lyme Disease IgM Ab SARS-CoV-2 (PCR) Influenza Type A (PCR) Influenza Type B (PCR) RSV (RT-PCR) Diagnostic Findings Chest x-ray obtained this morning demonstrated stable lead placement. No pneumothorax. Device interrogation revealed normal sensing threshold parameters on both the atrial ventricular leads. (1) Aortic stenosis Cardiac valve disease etiology: etiology unspecified Qualified Code(s): I35.0 - Nonrheumatic aortic (valve) stenosis (2) Anemia Anemia type: unspecified type Qualified Code(s): D64.9 - Anemia, unspecified (3) CAD (coronary atherosclerotic disease) Associated angina: unspecified whether angina present Coronary Disease- Associated Artery/Lesion type: bypass graft [place] vs. transplanted heart: [place] heart Qualified Code(s): I25.810 - Atherosclerosis of coronary artery bypass graft(s) without angina pectoris
[2021-02-19] MEDS ORDERED: FUROSEMIDE 20 MG TAB PO SCH (11:00)
--- NOTE | 2021-02-19 12:10 | Pharmacy Report ---
Pharmacy Glycemic Short Note 2 - Date of Service February 19, 2021 - Glycemic Short BSG Results (Last 24 hours): 02/18/21 02/18/21 02/18/21 13:50 16:55 21:04 Glucose 427 H* POC Glucose 330 H* 301 H* Fasting Glucose 02/19/21 02/19/21 02/19/21 00:16 04:17 07:13 Glucose POC Glucose 127 H 77 Fasting Glucose 62 L 02/19/21 11:27 Glucose POC Glucose 128 H Fasting Glucose OUTPATIENT ANTIDIABETIC REGIMEN: * Glipizide 20mg PO BID * Metformin 500mg PO BID * A1c = 8.3% 01/18/21 ASSESSMENT: * Patient admitted to ICU for complete heart block, following pacer placement, concern for fluid overload, MARCO * Patient had been severely hyperglycemic yesterday (possibly due to dopamine infusion + acute stressors), however developed mild hypoglycemia overnight following initiation of SQ basal/bolus regimen * Fasting BSG 62-77 this AM w/ 20 units Lantus on board. Will reduce dose by 50% and continue. Overnight hypoglycemia may have been attributed to correctional insulin given overnight as well. * Will continue Novolog utilizing weight-based "moderate" stress doses. PLAN FOR INPATIENT GLYCEMIC CONTROL: * Hold outpatient oral diabetes medications (glipizide, metformin) * Basal insulin * Lantus 10 units SQ Q HS * Bolus insulin * NovoLog per scale ACHS or Q6hrs while NPO * Goal Range: Low 120 mg/dL - High 160 mg/dL * Correction Factor: 25 mg/dL/unit * Nutritional / Prandial insulin per carb ratio of 1 unit per 8 grams CHO consumed PLAN FOR DISCHARGE: * to be determined. MARCO may prevent use of metformin on discharge unless resolved.
[2021-02-19] MEDS: METOPROLOL SUCC 50MG EXT REL TAB PO SCH (12:19)
[2021-02-19] MEDS ORDERED: FUROSEMIDE 20 MG TAB PO ONE (17:30)
--- NOTE | 2021-02-19 17:45 | Electrocardiogram Report ---
Test Reason : Blood Pressure : / mmHG Vent. Rate : 089 BPM Atrial Rate : 089 BPM P-R Int : 170 ms QRS Dur : 158 ms QT Int : 454 ms P-R-T Axes : 050 -39 125 degrees QTc Int : 552 ms Atrial-sensed ventricular-paced rhythm with intrinsic complexes Abnormal ECG When compared with ECG of 18-FEB-2021 14:03, (unconfirmed) Electronic ventricular pacemaker has replaced Idioventricular rhythm Vent. rate has increased BY 52 BPM Confirmed by Cali Rodriguez ([id number]) on 02/19/2021 5:45:21 PM Referred By: REFERRED SELF Confirmed By:Fernando Rodriguez
[2021-02-19] MEDS ORDERED: INSULIN GLARGINE SOLOSTAR 100 UNITS/ML 3 ML PEN SC SCH (21:00)
[2021-02-20] MEDS ORDERED: INSULIN ASPART PER UNIT SC SCH (02:00)
[2021-02-20 06:51] LABS: BUN Creatinine Ratio 17.6 (10-20); Calcium 8.8 mg/dl (8.5-10.1); Est GFR (African American) 36.2 ml/min; Est GFR (Non-African American) 31.2 ml/min; Potassium 4.2 mmol/L (3.5-5.1)
[2021-02-20] MEDS: INSULIN ASPART PER UNIT SC SCH (08:15)
[2021-02-20] MEDS: ASPIRIN 81 MG ECTAB PO SCH (08:16)
[2021-02-20] MEDS: FUROSEMIDE 20 MG TAB PO SCH (08:16)
[2021-02-20] MEDS: SIMVASTATIN 20 MG TAB PO SCH (08:16)
[2021-02-20] MEDS: TAMSULOSIN HCL 0.4 MG CAP PO SCH (08:16)
[2021-02-20] MEDS: METOPROLOL SUCC 50MG EXT REL TAB PO SCH (08:16)
[2021-02-20] MEDS: FINASTERIDE 5 MG TAB PO SCH (08:16)
[2021-02-20] MEDS ORDERED: INSULIN GLARGINE SOLOSTAR 100 UNITS/ML 3 ML PEN SC SCH (09:00)
[2021-02-20] MEDS ORDERED: amLODIPine BESYLATE 5 MG TAB PO SCH (09:00)
--- NOTE | 2021-02-20 10:49 | Discharge Summary ---
Date of Service February 20, 2021 Admission HPI Per Admitting Provider The patient presented on 02/18/2021 with symptoms of weakness and shortness of breath. He was found to be in cardiogenic shock with hypotension and bradycardia due to complete heart block in the setting of critical aortic stenosis. Principal Diagnosis Complete heart block Severe aortic stenosis Acute kidney injury Discharge Exam The patient is alert and oriented. Mood and affect appeared normal. He answered all questions appropriately. HEENT: Pupils are equal and reactive to light and accommodation. Extraocular movements are intact. The sclerae are anicteric. Neuro: Cranial nerves intact Lungs: Clear to auscultation bilaterally. He has good air movement without use of accessory muscles. No rales wheezes or rhonchi. Cardiac: Heart demonstrates a regular rate and rhythm. Normal S1 and S2. Loud, late-peaking crescendo systolic murmur Chest: Pacemaker implant site with ecchymosis but no hematoma or drainage. Pulses: The patient has palpable radial pulses bilaterally that are equal in intensity Extremities: There was no evidence of hypoperfusion. There is no cyanosis or clubbing. There is no edema. Skin: I did not appreciate any rashes on examination today. Discharge Data Allergies Allergy/AdvReac Type Severity Reaction Status Date / Time No Known Allergies Allergy Mild NONE Verified 02/14/21 13:11 Procedures Performed Operation Date: 02/18/21 15:00 Actual Procedures p Ins/RemTemporary Transvenous Pacer - Vish Rodriguez MD s Pacer with A/V Leads (Dual) - Vish Rodriguez MD s Ultrasound Vascular Access - Vish Rodriguez MD Ordered Studies 02/18/21 14:49 CL Cath Imgs for PACS use only Stat Hospital Course (1) CHB (complete heart block): Resolved status post pacemaker placement. His hemodynamics improved almost immediately. Pacemaker was evaluated subsequent to implant and found to be functioning normally. Chest x-ray did not demonstrate pneumothorax. There was stable lead position. (2) MARCO (acute kidney injury): Creatinine improved. Likely ATN related to poor perfusion. He did present in cardiogenic shock. Creatinine is improving. Electrolytes have been normal and his volume status is good. He will require follow-up in the outpatient setting to ensure that his renal function returns to baseline. I have asked him to provide a blood sample in 2 days at the hospital for evaluation. (3) Aortic stenosis: Severe. Patient has been in touch with [facility]. He is scheduled to be evaluated for percutaneous valve replacement. He did not have symptoms of significant angina or dyspnea during his admission. However, he has had symptoms of this nature previously related to his severe valve disease. (4) Mitral regurgitation: Moderate on echocardiogram obtained December 2020. Unclear how this will affect his evaluation for TAVR (5) Diabetes: On metformin and glipizide at the time of admission. Metformin has been held due to his renal injury. He was treated with p.r.n. insulin during his hospitalization. We will discharge him on glipizide exclusively. (6) Anemia: This appears to be at baseline. Will reassess in 2 days. (7) CAD (coronary atherosclerotic disease): No obstructive disease on recent catheterization. Patent bypass grafts. Will continue aggressive secondary prevention. (8) Urinary retention: Patient had some difficulty urinating immediately following admission. A De La Paz catheter was placed temporarily. Since its removal the patient has been voiding normally. Total Time Total Time Spent Total Time Spent (In Minutes): 20 Discharge Plan Discharge Items Patient Disposition: Home - Self-Care Reason For Visit: BRADYCARDIA/HYPOTENSION Discharge Diagnosis: Complete heart block. Acute kidney injury. Severe aortic stenosis. Activity: Per Instructions section Activity Comment: No lifting left arm above shoulder or behind neck for 6 weeks. Lifting: No more than 10 pounds Bathing: Keep incision dry Bathing Comment: Keep wound dry and Steri-Strips intact until follow-up next week Driving/Machine Use: Resume 3 days after discharge Non-emergency contact: [employer] Call non-emergency contact if: you have any medication questions, you have a fever and your wound has increased drainage Follow-up/Referrals: Robert Quinones MD [Primary Care Provider] - Diet: Carb Consistent or DM2 and Heart Healthy Addtl Attending Provider Instructions: Report to the hospital for a blood test on Thursday02/22/2021 (his primary care provider's office will be closed on that day) Pending Studies at Discharge: No Stand-Alone Forms: My [employer] RTD, Smoking Cessation Medications and DC Order Prescriptions: Continued furosemide 40 mg tablet 60 mg PO DAILY RF: 0 metoprolol succinate 50 mg tablet extended release 24 hr 50 mg PO DAILY RF: 0 glipizide 10 mg tablet 20 mg PO BID RF: 0 tamsulosin 0.4 mg capsule 0.4 mg PO DAILY RF: 0 amlodipine 10 mg tablet 10 mg PO DAILY RF: 0 simvastatin 20 mg tablet 20 mg PO DAILY RF: 0 finasteride 5 mg tablet 5 mg PO DAILY RF: 0 aspirin 81 mg Tablet,Delayed Release (Dr/Ec) 81 mg PO DAILY Qty: 30 RF: 0 Discontinued metformin 500 mg tablet 500 mg PO BID RF: 0 lisinopril 10 mg tablet 10 mg PO BID RF: 0 Discharge Orders: Discharge Order (Routine); Ordered 02/20/21 Ordered By: Vish Rodriguez Admission Data Admit Date/Time: 02/18/21 16:54 Attending Provider: Vish Rodriguez Admit Provider: Vish Rodriguez Primary Care Provider: Robert Quinones Other Providers: Alistair Henao Coding Level of Care Code D/C DAY MANAGEMENT <30 MINS Diagnoses CHB (complete heart block) I44.2 MARCO (acute kidney injury) N17.9 Aortic stenosis I35.0 Cardiac valve disease etiology: etiology unspecified Mitral regurgitation I34.0 Diabetes E11.9 Anemia D64.9 Anemia type: unspecified type CAD (coronary atherosclerotic disease) I25.810 Associated angina: unspecified whether angina present Coronary Disease-Associated Artery/Lesion type: bypass graft [place] vs. transplanted heart: [place] heart Urinary retention R33.9
--- NOTE | 2021-02-21 03:12 | Electrocardiogram Report ---
Test Reason : Blood Pressure : / mmHG Vent. Rate : 037 BPM Atrial Rate : 037 BPM P-R Int : 000 ms QRS Dur : 160 ms QT Int : 686 ms P-R-T Axes : 000 008 -79 degrees QTc Int : 538 ms Idioventricular rhythm with occasional Premature ventricular complexes with complete heart block Left bundle branch block Abnormal ECG When compared with ECG of 19-JAN-2021 06:10, Idioventricular rhythm has replaced Sinus rhythm Vent. rate has decreased BY 32 BPM Confirmed by Cali Rodriguez ([id number]) on 02/19/2021 5:39:56 PM Referred By: Confirmed By:Fernando Rodriguez
== END 2021-02-20 12:30 | disposition home or self-care (01) ==
LOC: ED 13:59 → CC 14:56 → 1E 14:56 → 2S 02-19 23:07

== ENCOUNTER 2021-03-20 06:20 | Observation (INO) ==
--- NOTE | 2021-03-20 06:39 | Emergency Department Note ---
Impression & Plan CHF (congestive heart failure), Elevated troponin, Breath shortness ED Provider Note NAME: CHERYL DURHAM AGE: 85 SEX: M : 1935 ARRIVES VIA: Ambulance INFORMANT: Patient ED PROVIDER(S): Lamin Guido DO CHIEF COMPLAINT: shortness of breath HPI: Patient is an 85-year-old male with a past medical history of CAD with bypass, hypertension, diabetes, Mitral regurg, aortic stenosis, complete heart block with ICD present who presents the ER for shortness of breath which has been getting worse since this morning around 3 AM. Patient denies any chest pain. No headache or change in vision. No belly pain, nausea, vomiting, or diarrhea. No dysuria, urgency, or frequency. No other exacerbating or remitting factors. Shortness of breath is significantly worsened with any movement this is been to deteriorating over several months. He notes he is significantly more short of breath with lying flat. He does have swelling in his legs admits that this is slightly worse. ROS: See above HPI for pertinent positives & negatives. A total of 10 systems reviewed and were otherwise negative. PAST MEDICAL HISTORY:See Below PAST SURGICAL HISTORY:See Below FAMILY HISTORY:See Below SOCIAL HISTORY:See Below HOME MEDICATIONS:See Below ALLERGIES:See Below VITALS:See Below PHYSICAL EXAMINATION: GENERAL: Sitting up in bed, alert, Disheveled, dyspneic with conversation EYE EXAM: normal conjunctiva. PERRL and EOM's grossly intact. OROPHARYNX: no exudate, no erythema, lips, buccal mucosa, and tongue normal and mucous membranes are moist NECK: supple, no nuchal rigidity, no adenopathy, non-tender LUNGS: Clear to auscultation. Normal chest wall mechanics HEART: +PRABHAKAR, S1 normal and S2 normal ABDOMEN: abdomen soft, non-tender, normo-active bowel sounds, no masses, no rebound or guarding. UPPER EXTREMITIES: upper extremities are grossly normal. LOWER EXTREMITIES: Pitting edema in bilateral lower extremities right greater than left tracking up to hip/thighs NEURO EXAM: Normal sensorium, cranial nerves II-XII grossly intact, normal speech, no gross weakness of arms, no gross weakness of legs. MEDICAL DECISION MAKING: Patient is an 85-year-old male with CAD with bypass, hypertension, diabetes, Mitral regurg, aortic stenosis, complete heart block with ICD that presents to the ER for shortness of breath which started suddenly this morning. He was recently at [facility] yesterday for evaluation of TAVR. He is unsure what they have decided. IV was established blood work was obtained he was brought in by EMS. Labs show no significant leukocytosis. Mild anemia at 11. BMP with creatinine 1.5. T bili slightly up at 1.7. LFTs were unremarkable. proBNP slightly elevated at 600. Trope was elevated 0.05. Lipase was normal. Covid was negative. Chest x-ray with worsening pulmonary edema. Pitting bilateral extremity edema. Difficulty laying flat. No consistent with worsening heart failure. Will elect for gentle diuresis with Lasix 20 mg due to the severe as he is likely preload dependent. Patient was updated bedside. Discussed with the hospitalist admitted for further work-up. He is currently on 2 L. Pulse ox trends down to 90 fairly consistently. Triage Nursing notes reviewed. Limited review of prior medical records performed Vital Signs: reviewed and remarkable for Tachypneic, tachycardic Differential diagnosis: Differential diagnoses includes but is not limited to pneumonia, bronchitis, COPD/Asthma exacerbation, pneumothorax, pulmonary embolism, congestive heart failure, acute coronary syndrome ER treatment provided: See below Diagnostics interpreted by me: ECG: Ventricularly paced rate of 103 Left axis Right bundle branch block QTC 459 Wave inversion and nonspecific ST wave changes in the high lateral leads No significant change from previous on February 18, 2021 Cardiac Monitoring: An order was placed for continuous cardiac monitoring. The monitor shows a rate of 101 with sinus rhythm. Laboratory studies: As stated above and show below. Imaging studies: Portable AP upright 1 view of the chest shows pulmonary edema Consultation(s): Discussed with hospitalist Dr. Archer for further evaluation Procedures: none Critical Care: None Past Med/Surg History Medical History BPH w urinary obs/LUTS Coronary artery disease Diabetes Hypercholesterolemia Hypertension Lower extremity edema Subdural hematoma Surgical History History of heart bypass surgery Status post evacuation of subdural hematoma Social History Smoking Status: Former smoker Tobacco Type: Cigarettes Hx Alcohol Use: No Hx Substance Use: No Preferred Language: Serbian Communication Ability: Effective Leather Crafter Required: No Beliefs That Will Affect Care: None marital status: Current Living Situation: Family current occupational status: employed and retired How many Children do You have: 3 Feels Safe at Home: Yes Assistive Devices: None Allergies Allergies Allergy/AdvReac Type Severity Reaction Status Date / Time No Known Allergies Allergy Mild NONE Verified 02/14/21 13:11 Home Meds Home Medications Medication Instructions Recorded Confirmed amlodipine 10 mg tablet 10 mg PO DAILY 01/17/21 03/20/21 finasteride 5 mg tablet 5 mg PO DAILY 01/17/21 03/20/21 furosemide 40 mg tablet 60 mg PO DAILY 01/17/21 03/20/21 glipizide 10 mg tablet 20 mg PO BID 01/17/21 03/20/21 metoprolol succinate 50 mg 50 mg PO DAILY 01/17/21 03/20/21 tablet,extended release 24 hr simvastatin 20 mg tablet 20 mg PO HS 01/17/21 03/20/21 tamsulosin 0.4 mg capsule 0.4 mg PO DAILY 01/17/21 03/20/21 Previous Rx's Medication Instructions Recorded aspirin 81 mg tablet,delayed 81 mg PO DAILY #30 tab 01/22/21 release Results & Data (ED) Vital Signs Vital Signs - 24 hr 03/20/21 06:24 03/20/21 06:32 03/20/21 06:41 Temperature 36.6 C Temperature Source Oral Pulse Rate 106 H Pulse Rhythm Respiratory Rate 26 H Respiratory Effort / Characteristics Short of Breath Respiratory Pattern Blood Pressure 112/65 Blood Pressure Mean 80 Pulse Oximetry 94 95 Oxygen Delivery Method Room Air Room Air Oxygen Flow Rate 0 Sepsis Recent Fever Within 48 Hours No Sepsis New/Unexplained Change in Mental Status No Sepsis Action Taken by Nursing Physician Notified 03/20/21 06:44 03/20/21 06:46 Temperature Temperature Source Pulse Rate 103 H Pulse Rhythm Regular Respiratory Rate 20 Respiratory Effort / Characteristics Spontaneous Short of Breath SOB on Exertion Respiratory Pattern Tachypnea Blood Pressure Blood Pressure Mean Pulse Oximetry 96 Oxygen Delivery Method Room Air Room Air Oxygen Flow Rate 0 Sepsis Recent Fever Within 48 Hours Sepsis New/Unexplained Change in Mental Status Sepsis Action Taken by Nursing Laboratory Data Result diagrams: 03/20/21 06:02 03/20/21 06:02 Lab Results 03/20/21 03/20/21 03/20/21 Range/Units 06:02 06:02 06:50 WBC 5.82 (4.8-10.8) K/uL RBC 3.48 L (4.7-6.1) M/uL Hgb 11.0 L (14.0-18.0) g/dL Hct 33.3 L (42-52) % MCV 95.7 (80-100) fL MCH 31.6 (25-34) pg MCHC 33.0 (32-36) g/dL RDW Std Deviation 53.1 H (36.4-46.3) fL RDW Coeff of Jose A 15.1 H (11.5-14.5) % Plt Count 149 (130-400) K/uL MPV 9.7 (7.4-10.4) fL Immature Gran % (Auto) 0.2 % Neut % (Auto) 78.2 % Lymph % (Auto) 14.1 % [place] % (Auto) 5.3 % Eos % (Auto) 1.9 % Baso % (Auto) 0.3 % Neut # (Auto) 4.55 (1.4-6.5) K/uL Lymph # (Auto) 0.82 L (1.2-3.4) K/uL [place] # (Auto) 0.31 (0.11-0.59) K/uL Eos # (Auto) 0.11 (0-0.5) K/uL Baso # (Auto) 0.02 (0-0.2) K/uL Immature Gran # (Auto) 0.01 (0.00-0.02) K/uL Sodium 140 (136-145) mmol/L Potassium 3.8 (3.5-5.1) mmol/L Chloride 107 (98-107) mmol/L Carbon Dioxide 22 (21-32) mmol/L Anion Gap 11 (3-11) BUN 25 H (6-23) mg/dl Creatinine 1.51 H (0.6-1.4) mg/dl Est Cr Clr Drug Dosing 37.8 ml/min Est GFR ( Amer) 48.1 ml/min Est GFR (Non-Af Amer) 41.5 ml/min BUN/Creatinine Ratio 16.6 (10-20) Glucose 217 H (70-99(Fasting)) mg/dl Calcium 8.5 (8.5-10.1) mg/dl Total Bilirubin 1.7 H (0.2-1.0) mg/dl AST 12 L (13-39) U/L ALT 11 (7-52) U/L Alkaline Phosphatase 97 (34-104) U/L Troponin I 0.05 H* (0-0.04) ng/ml B-Natriuretic Peptide (0-100) pg/ml Total Protein 6.8 (6.0-8.3) gm/dl Albumin 3.9 (3.4-5.0) gm/dl Globulin 2.9 (2.5-4.0) gm/dl Albumin/Globulin Ratio 1.3 (0.9-2) Lipase 16 (11-82) U/L SARS-CoV-2, RNA, NAAT NEGATIVE (NEGATIVE) 03/20/21 Range/Units 06:56 WBC (4.8-10.8) K/uL RBC (4.7-6.1) M/uL Hgb (14.0-18.0) g/dL Hct (42-52) % MCV (80-100) fL MCH (25-34) pg MCHC (32-36) g/dL RDW Std Deviation (36.4-46.3) fL RDW Coeff of Jose A (11.5-14.5) % Plt Count (130-400) K/uL MPV (7.4-10.4) fL Immature Gran % (Auto) % Neut % (Auto) % Lymph % (Auto) % [place] % (Auto) % Eos % (Auto) % Baso % (Auto) % Neut # (Auto) (1.4-6.5) K/uL Lymph # (Auto) (1.2-3.4) K/uL [place] # (Auto) (0.11-0.59) K/uL Eos # (Auto) (0-0.5) K/uL Baso # (Auto) (0-0.2) K/uL Immature Gran # (Auto) (0.00-0.02) K/uL Sodium (136-145) mmol/L Potassium (3.5-5.1) mmol/L Chloride (98-107) mmol/L Carbon Dioxide (21-32) mmol/L Anion Gap (3-11) BUN (6-23) mg/dl Creatinine (0.6-1.4) mg/dl Est Cr Clr Drug Dosing ml/min Est GFR ( Amer) ml/min Est GFR (Non-Af Amer) ml/min BUN/Creatinine Ratio (10-20) Glucose (70-99(Fasting)) mg/dl Calcium (8.5-10.1) mg/dl Total Bilirubin (0.2-1.0) mg/dl AST (13-39) U/L ALT (7-52) U/L Alkaline Phosphatase (34-104) U/L Troponin I (0-0.04) ng/ml B-Natriuretic Peptide 616 H (0-100) pg/ml Total Protein (6.0-8.3) gm/dl Albumin (3.4-5.0) gm/dl Globulin (2.5-4.0) gm/dl Albumin/Globulin Ratio (0.9-2) Lipase (11-82) U/L SARS-CoV-2, RNA, NAAT (NEGATIVE) Administered Medications Discontinued Medications Furosemide (Furosemide Inj 20 Mg/2 Ml Vial) 20 mg IV ONE ONE Stop: 03/20/21 07:30 Last Admin: 03/20/21 07:34 Dose: 20 mg Documented by: [id number] Imaging Data Radiologist's Impression: Chest X-Ray 03/20/21 06:33 XR chest 1V portable CLINICAL HISTORY: Atypical chest pain TECHNIQUE: Single frontal radiograph of the chest was obtained. Comparison: Comparison is made to chest 2 views 02/19/2021 FINDINGS: Stable median sternotomy wires and dual-lead pacemaker. Cardiomegaly is noted. There is prominence and cephalization of the vasculature with Alyson B lines seen. No evidence of pleural effusion or pneumothorax. IMPRESSION: Moderate pulmonary edema. Stable cardiomegaly. ACT 112: Negative or not required by law. Electronically signed by: Rufus Mckinley M.D. 03/20/2021 7:09 AM Discharge Plan Visit Data Chief Complaint: Shortness of Breath/Dyspnea Stated Complaint: SHORT OF BREATH ED Provider: Lamin Guido Discharge Problem: CHF (congestive heart failure), Elevated troponin, Breath shortness Forms Stand Alone Forms: My [facility] [employer] Prescriptions Prescriptions: No Action furosemide 40 mg tablet 60 mg PO DAILY RF: 0 metoprolol succinate 50 mg tablet extended release 24 hr 50 mg PO DAILY RF: 0 glipizide 10 mg tablet 20 mg PO BID RF: 0 tamsulosin 0.4 mg capsule 0.4 mg PO DAILY RF: 0 amlodipine 10 mg tablet 10 mg PO DAILY RF: 0 simvastatin 20 mg tablet 20 mg PO HS RF: 0 finasteride 5 mg tablet 5 mg PO DAILY RF: 0 aspirin 81 mg Tablet,Delayed Release (Dr/Ec) 81 mg PO DAILY Qty: 30 RF: 0 Referrals Referrals: Robert Quinones MD [Primary Care Provider] - Discharge Problem: CHF (congestive heart failure) Qualifiers: Heart failure type: unspecified Heart failure chronicity: unspecified Qualified Code(s): I50.9 - Heart failure, unspecified
[2021-03-20 06:45] LABS: Basophils # (auto) 0.02 K/uL (0-0.2); Basophils % (auto) 0.3 %; Eosinophils # (auto) 0.11 K/uL (0-0.5); Eosinophils % (auto) 1.9 %; Hematocrit (blood only) 33.3 % (42-52); Immature Granulocytes # (auto) 0.01 K/uL (0.00-0.02); Immature Granulocytes % (auto) 0.2 %; Lymphocytes # (auto) 0.82 K/uL (1.2-3.4); Lymphocytes % (auto) 14.1 %; Mean Corpuscular Hemoglobin 31.6 pg (25-34); Mean Corpuscular Volume 95.7 fL (80-100); Mean Platelet Volume 9.7 fL (7.4-10.4); Monocytes # (auto) 0.31 K/uL (0.11-0.59); Monocytes % (auto) 5.3 %; Neutrophils # (auto) 4.55 K/uL (1.4-6.5); Neutrophils % (auto) 78.2 %; Platelet Count 149 K/uL (130-400); RDW Coefficient of Variation 15.1 % (11.5-14.5); RDW Standard Deviation 53.1 fL (36.4-46.3); Red Blood Count 3.48 M/uL (4.7-6.1); White Blood Count 5.82 K/uL (4.8-10.8)
[2021-03-20 07:09] LABS: Troponin I 0.05 ng/ml (0-0.04)
--- NOTE | 2021-03-20 07:10 | XRay Report ---
XR chest 1V portable CLINICAL HISTORY: Atypical chest pain TECHNIQUE: Single frontal radiograph of the chest was obtained. Comparison: Comparison is made to chest 2 views 02/19/2021 FINDINGS: Stable median sternotomy wires and dual-lead pacemaker. Cardiomegaly is noted. There is prominence an d cephalization of the vasculature with Alyson B lines seen. No evidence of pleural effusion or pneum othorax. IMPRESSION: Moderate pulmonary edema. Stable cardiomegaly. ACT 112: Negative or not required by law. Electronically signed by: Rufus Mckinley M.D. 03/20/2021 7:09 AM
[2021-03-20 07:25] LABS: Albumin Globulin Ratio 1.3 (0.9-2); Albumin Level 3.9 gm/dl (3.4-5.0); BUN Creatinine Ratio 16.6 (10-20); Bilirubin,Total 1.7 mg/dl (0.2-1.0); Calcium 8.5 mg/dl (8.5-10.1); Creatinine Clr Calc Pharmacy 37.8 ml/min; Est GFR (African American) 48.1 ml/min; Est GFR (Non-African American) 41.5 ml/min; Globulin 2.9 gm/dl (2.5-4.0); Potassium 3.8 mmol/L (3.5-5.1); Total Protein 6.8 gm/dl (6.0-8.3)
[2021-03-20] MEDS ORDERED: FUROSEMIDE INJ 20 MG/2 ML VIAL IV ONE (07:29)
--- NOTE | 2021-03-20 07:46 | History & Physical Report ---
Date of Service March 20, 2021 Assessment & Plan (1) CHF (congestive heart failure): Plan: Aggressive diuresis -Continue 60 mg Lasix daily with additional doses -Supplemental potassium given aggressive diuresis Limited echocardiogram CHF program referral (2) Elevated troponin: Plan: Trend troponins -Suspect secondary to CHF exacerbation (3) Breath shortness: Plan: Covid negative Suspect cardiac in origin versus viral URI -White count negative -Afebrile (4) Urinary retention: Plan: Continue home medications -Straight cath as needed (5) Pulmonary edema: Plan: See CHF (6) Mitral regurgitation: Plan: Limited echo (7) Aortic stenosis: Plan: Limited echo -Following with her she has follow-up next week (8) Lower extremity edema: Plan: ADAM hose -Aggressive diuresis (9) Hypertension: Plan: Continue home medication regimen -Amlodipine 10 mg p.o. daily -Metoprolol 50 mg p.o. daily (10) Anemia: Plan: Likely secondary to chronic disease no further work-up indicated at this time (11) CAD (coronary atherosclerotic disease): Plan: Continue statin Continue beta-mingo Continue aspirin No BREANA inhibitor -On previous admission patient had acute kidney injury suspect waiting for creatinine to improve -We will consider addition of BREANA in next 24 hours History of Present Illness Chief Complaint: Dyspnea Primary Care Provider: Robert Quinones MD Patient is an 85-year-old male with past medical history of coronary artery disease status post bypass, hypertension, hyperlipidemia, mitral regurgitation, aortic stenosis, complete heart block and AICD placement in February 18, 2021 who presents with several day history of increasing shortness of breath. Reports he had follow-up in [place] yesterday with cardiovascular surgery to evaluate for TEVAR for his aortic stenosis. He was particularly short of breath and required to be pushed around in a wheelchair. Patient does not admit to be ing told of a fluid restriction nor does he particularly watch his sodium. His son is at the bedside provides additional information that he eats chicken pot pie in the hospital cafeteria and then had a bag of potato chips on the way home. There is also fluid intake indiscretion. Patient feels like he has more swelling in his lower extremities he normally wears ADAM hose and he has not been wearing them. He denies chest pain he has a mild productive cough with yellow sputum denies fevers chills. No change in his bowel habits no melena no black tarry stools. Allergies Allergy/AdvReac Type Severity Reaction Status Date / Time No Known Allergies Allergy Mild NONE Verified 02/14/21 13:11 Home Medications Medication Instructions Recorded Confirmed Type amlodipine 10 mg tablet 10 mg PO DAILY 01/17/21 03/20/21 History finasteride 5 mg tablet 5 mg PO DAILY 01/17/21 03/20/21 History furosemide 40 mg tablet 60 mg PO DAILY 01/17/21 03/20/21 History glipizide 10 mg tablet 20 mg PO BID 01/17/21 03/20/21 History metoprolol succinate 50 mg 50 mg PO DAILY 01/17/21 03/20/21 History tablet,extended release 24 hr simvastatin 20 mg tablet 20 mg PO HS 01/17/21 03/20/21 History tamsulosin 0.4 mg capsule 0.4 mg PO DAILY 01/17/21 03/20/21 History aspirin 81 mg tablet,delayed 81 mg PO DAILY #30 tab 01/22/21 03/20/21 Rx release Past Med/Surg History Medical History BPH w urinary obs/LUTS Coronary artery disease Diabetes Hypercholesterolemia Hypertension Lower extremity edema Subdural hematoma Surgical History History of heart bypass surgery Status post evacuation of subdural hematoma Social History Smoking Status: Former smoker Tobacco Type: Cigarettes Hx Alcohol Use: No Hx Substance Use: No Preferred Language: Urdu Communication Ability: Effective Medical Consultant Required: No Beliefs That Will Affect Care: None marital status: Current Living Situation: Family current occupational status: employed and retired How many Children do You have: 3 Feels Safe at Home: Yes Assistive Devices: None Review of Systems Review of Systems: As per HPI otherwise a 10 point review of systems has been reviewed and is otherwise negative Physical Exam Physical Exam: General: Alert. nontoxic. Pleasant sitting reclined in stretcher Skin: Warm, dry, Head: Atraumatic Ears, nose, mouth and throat: airway patent Cardiovascular: Normal peripheral perfusion, mild tachycardia Respiratory: no respiratory distress, Rales and rhonchi bilaterally mild Gastrointestinal: Non distended Musculoskeletal: No deformity, 2+ pitting edema the bilateral lower extremities Results & Data Results & Data ([facility]) Vital Signs (Past 12 Hours) Vital Signs Temp Pulse Resp BP Pulse Ox 03/20/21 06:44 103 H 20 96 03/20/21 06:41 95 03/20/21 06:32 36.6 C 03/20/21 06:24 106 H 26 H 112/65 94 Diagnostic Findings Echocardiogram from 01/18/2021 reviewed: Left ventricular systolic function normal, mild concentric left ventricular hypertrophy, left atrium dilated, severe aortic stenosis, moderate mitral regurgitation, mild mitral stenosis, right ventricular systolic pressure elevated at 40-50. Medications Administered Medication List Discontinued Medications Furosemide (Furosemide Inj 20 Mg/2 Ml Vial) 20 mg IV ONE ONE Stop: 03/20/21 07:30 Last Admin: 03/20/21 07:34 Dose: 20 mg Documented by: [id number] Critical Care Results & Data Vital Signs (Past 12 Hours) Vital Signs Temp Pulse Resp BP Pulse Ox 03/20/21 06:44 103 H 20 96 03/20/21 06:41 95 03/20/21 06:32 36.6 C 03/20/21 06:24 106 H 26 H 112/65 94 Lab & Micro Results (Past 24 Hours) RBC 3.48 M/uL (4.7-6.1) L 03/20/21 WBC 5.82 K/uL (4.8-10.8) 03/20/21 Hgb 11.0 g/dL (14.0-18.0) L 03/20/21 Hct 33.3 % (42-52) L 03/20/21 MCV 95.7 fL (80-100) 03/20/21 MCH 31.6 pg (25-34) 03/20/21 MCHC 33.0 g/dL (32-36) 03/20/21 RDW Standard Deviation 53.1 fL (36.4-46.3) H 03/20/21 RDW Coefficient of Variation 15.1 % (11.5-14.5) H 03/20/21 Plt Count 149 K/uL (130-400) 03/20/21 MPV 9.7 fL (7.4-10.4) 03/20/21 Neutrophils (%) (Auto) 78.2 % 03/20/21 Lymphocytes (%) (Auto) 14.1 % 03/20/21 Monocytes # (Auto) 0.31 K/uL (0.11-0.59) 03/20/21 Eosinophils # (Auto) 0.11 K/uL (0-0.5) 03/20/21 Immature Granulocyte % (Auto) 0.2 % 03/20/21 Neutrophils # (Auto) 4.55 K/uL (1.4-6.5) 03/20/21 Lymphocytes # (Auto) 0.82 K/uL (1.2-3.4) L 03/20/21 Monocytes # (Auto) 0.31 K/uL (0.11-0.59) 03/20/21 Eosinophils # (Auto) 0.11 K/uL (0-0.5) 03/20/21 Basophils # (Auto) 0.02 K/uL (0-0.2) 03/20/21 Immature Granulocyte # (Auto) 0.01 K/uL (0.00-0.02) 03/20/21 Na 140 mmol/L (136-145) 03/20/21 K 3.8 mmol/L (3.5-5.1) 03/20/21 Cl 107 mmol/L (98-107) 03/20/21 CO2 22 mmol/L (21-32) 03/20/21 Anion Gap 11 (3-11) 03/20/21 BUN 25 mg/dl (6-23) H 03/20/21 Creatinine 1.51 mg/dl (0.6-1.4) H 03/20/21 Estimated GFR ( Amer) 48.1 ml/min 03/20/21 Estimated GFR (Non-Af Amer) 41.5 ml/min 03/20/21 BUN/Creatinine Ratio 16.6 (10-20) 03/20/21 Glu 217 mg/dl (70-99(Fasting)) H 03/20/21 Ca 8.5 mg/dl (8.5-10.1) 03/20/21 Total Bilirubin 1.7 mg/dl (0.2-1.0) H 03/20/21 AST 12 U/L (13-39) L 03/20/21 ALT 11 U/L (7-52) 03/20/21 Alkaline Phosphatase 97 U/L (34-104) 03/20/21 TP 6.8 gm/dl (6.0-8.3) 03/20/21 Albumin 3.9 gm/dl (3.4-5.0) 03/20/21 Globulin 2.9 gm/dl (2.5-4.0) 03/20/21 Albumin/Globulin Ratio 1.3 (0.9-2) 03/20/21 Calcium Level 8.5 mg/dl (8.5-10.1) 03/20/21 06:02 03/20/21 Diagnostic Findings (Past 24 Hours) Chest X-Ray 03/20/21 06:33 XR chest 1V portable CLINICAL HISTORY: Atypical chest pain TECHNIQUE: Single frontal radiograph of the chest was obtained. Comparison: Comparison is made to chest 2 views 02/19/2021 FINDINGS: Stable median sternotomy wires and dual-lead pacemaker. Cardiomegaly is noted. There is prominence and cephalization of the vasculature with Alyson B lines seen. No evidence of pleural effusion or pneumothorax. IMPRESSION: Moderate pulmonary edema. Stable cardiomegaly. ACT 112: Negative or not required by law. Electronically signed by: Rufus Mckinley M.D. 03/20/2021 7:09 AM RT Ventilator Mngmt (Last Documented) Ventilator Ordered Settings Respiratory Rate 20 03/20/21 06:44 Ventilator - PT Measurements Respiratory Rate 20 Code Status & VTE Plan Code Status Discussed risk benefits and prognosis of aggressive heroic measures in event of cardiac arrest he does declines to heroic measures in event cardiac arrest and subsequently DNR/DNI PG Care Time/CCT Total # of Minutes Spent Total Time Spent with Patient: Total time spent is greater than 50% in coordination of care (as documented) at patient's floor/unit and/or counseling patient: Coding Level of Care Code 87954 Initial Inpt Care Lvl 3 Diagnoses CHF (congestive heart failure) I50.9 Heart failure chronicity: unspecified Heart failure type: unspecified Elevated troponin R77.8 Breath shortness R06.02 Urinary retention R33.9 Pulmonary edema J81.1 Mitral regurgitation I34.0 Aortic stenosis I35.0 Cardiac valve disease etiology: etiology unspecified Lower extremity edema R60.0 Hypertension I10 Anemia D64.9 Anemia type: unspecified type CAD (coronary atherosclerotic disease) I25.810 Associated angina: unspecified whether angina present Coronary Disease-Associated Artery/Lesion type: bypass graft [place] vs. transplanted heart: [place] heart Time Spent (min) 75 (1) CHF (congestive heart failure) Heart failure chronicity: unspecified Heart failure type: unspecified Qualified Code(s): I50.9 - Heart failure, unspecified (2) Aortic stenosis Cardiac valve disease etiology: etiology unspecified Qualified Code(s): I35.0 - Nonrheumatic aortic (valve) stenosis (3) Anemia Anemia type: unspecified type Qualified Code(s): D64.9 - Anemia, unspecified (4) CAD (coronary atherosclerotic disease) Associated angina: unspecified whether angina present Coronary Disease-Associated Artery/Lesion type: bypass graft [place] vs. transplanted heart: [place] heart Qualified Code(s): I25.810 - Atherosclerosis of coronary artery bypass graft(s) without angina pectoris
[2021-03-20] MEDS ORDERED: POTASSIUM CHLORIDE CRTAB 20 MEQ TABCR PO STA (09:17)
[2021-03-20] MEDS ORDERED: FUROSEMIDE 40 MG/4 ML VIAL IV ONE ×2 (09:17→16:00)
--- NOTE | 2021-03-20 10:56 | Electrocardiogram Report ---
Test Reason : Blood Pressure : / mmHG Vent. Rate : 103 BPM Atrial Rate : 103 BPM P-R Int : 168 ms QRS Dur : 112 ms QT Int : 378 ms P-R-T Axes : 000 -41 110 degrees QTc Int : 495 ms Poor data quality, interpretation may be adversely affected Atrial-sensed ventricular-paced rhythm Abnormal ECG When compared with ECG of 18-FEB-2021 19:07, Vent. rate has increased BY 14 BPM Confirmed by Cali Rodriguez ([id number]) on 03/20/2021 10:56:05 AM Referred By: REFERRED SELF Confirmed By:Fernando Rodriguez
--- NOTE | 2021-03-20 10:56 | XCELERA ---
[id number]
[2021-03-20] MEDS ORDERED: ALUMINUM/MAGNESIUM SUSP 30 ML UDC PO PRN (12:25)
[2021-03-20] MEDS ORDERED: CARBOHYDRATES FOR HYPOGLYCEMIA PO PRN (12:25)
[2021-03-20] MEDS ORDERED: GLUCAGON FOR INJ 1 MG VIAL SQ PRN (12:25)
[2021-03-20] MEDS ORDERED: GLUCOSE 10 TABS/TUBE PO PRN (12:25)
[2021-03-20] MEDS ORDERED: DEXTROSE 50% 50 ML SYRINGE IV PRN (12:25)
[2021-03-20] MEDS ORDERED: GLUCOSE 40% GEL 15 GM TUBE PO PRN (12:25)
[2021-03-20] MEDS ORDERED: ACETAMINOPHEN 325 MG TAB PO PRN (12:25)
[2021-03-20] MEDS: ENOXAPARIN INJ 30 MG/0.3 ML SYR SQ SCH (13:28)
[2021-03-20] MEDS: INSULIN ASPART PER UNIT SC SCH ×3 (14:06→21:15)
[2021-03-20] MEDS: SIMVASTATIN 20 MG TAB PO SCH (21:18)
[2021-03-21 05:06] LABS: Basophils # (auto) 0.01 K/uL (0-0.2); Basophils % (auto) 0.2 %; Eosinophils # (auto) 0.08 K/uL (0-0.5); Eosinophils % (auto) 1.5 %; Hematocrit (blood only) 31.1 % (42-52); Hemoglobin 10.6 g/dL (14.0-18.0); Immature Granulocytes # (auto) 0.02 K/uL (0.00-0.02); Immature Granulocytes % (auto) 0.4 %; Lymphocytes # (auto) 0.49 K/uL (1.2-3.4); Lymphocytes % (auto) 9.1 %; Mean Corpuscular Hemoglobin 32.4 pg (25-34); Mean Corpuscular Hgb Conc 34.1 g/dL (32-36); Mean Corpuscular Volume 95.1 fL (80-100); Mean Platelet Volume 9.2 fL (7.4-10.4); Monocytes # (auto) 0.42 K/uL (0.11-0.59); Monocytes % (auto) 7.8 %; Neutrophils # (auto) 4.35 K/uL (1.4-6.5); Platelet Count 134 K/uL (130-400); RDW Coefficient of Variation 14.9 % (11.5-14.5); RDW Standard Deviation 52.1 fL (36.4-46.3); Red Blood Count 3.27 M/uL (4.7-6.1); White Blood Count 5.37 K/uL (4.8-10.8)
[2021-03-21 05:18] LABS: Partial Thromboplastin Time 27.1 Seconds (21.0-31.0)
[2021-03-21 05:30] LABS: Albumin Level 3.6 gm/dl (3.4-5.0); BUN Creatinine Ratio 17.8 (10-20); Bilirubin Direct 0.3 mg/dl (0-0.2); Calcium 8.5 mg/dl (8.5-10.1); Creatinine Clr Calc Pharmacy 39.1 ml/min; Est GFR (African American) 50.1 ml/min; Est GFR (Non-African American) 43.2 ml/min; Magnesium 1.9 mg/dl (1.7-2.4); Phosphorus 3.1 mg/dl (2.5-4.9); Total Protein 6.3 gm/dl (6.0-8.3)
[2021-03-21 06:58] LABS: Estimated Average Glucose 171 mg/dl; Hemoglobin A1C 7.6 % (4.5-5.6)
--- NOTE | 2021-03-21 07:25 | XRay Report ---
XR chest 1V portable HISTORY: 85 years-old Male intubation acute respiratory failure COMPARISON: Chest radiograph 03/20/2021 TECHNIQUE: Portable AP view of the chest FINDINGS: The cardiac silhouette is enlarged. Prior median sternotomy. Left subclavian pacer. No pneumothorax. Trace pleural effusions. Pulmonary vascular congestion with interstitial coarsening. Ill-defined biba silar predominant airspace opacities. There is stable to slightly improved aeration of the lungs comp ared to prior. Degenerative changes of the shoulders and spine. IMPRESSION: 1. Cardiomegaly with persistent mixed interstitial and alveolar opacities which appear stable to slig htly improved. 2. Trace pleural effusions. ACT 112: Negative or not required by law. The above report was generated using voice recognition software. It may contain grammatical, syntax o r spelling errors. Electronically signed by: Rafael Jones M.D. 03/21/2021 7:24 AM
--- NOTE | 2021-03-21 07:57 | Hospitalist Progress Note ---
Date of Service March 21, 2021 Assessment & Plan (1) CHF (congestive heart failure): Plan: Patient with PMHx CAD s/p bypass (CLEARY to LAD) presented after recent admission for complete heart block requiring placement of pacemaker by Dr. Rodriguez 02/18/21 Seen at [facility] 02/16 for consideration of TEVAR and noted increasing LE edema/shortness of breath but did also note eating lots of soups/chips as recently broke hip/hospital/rehab and just got home this past week in a patient with known severe /mitral disease congestion on CXR and elevated BNP on admission acute on chronic diastolic CHF 2nd to valvular disease (On lasix 40mg AM/20mg PM at home [employer]) BNP further elevated today 616--> 742 -2.5L overnight Lasix 60mg IV x 2 given 03/20, Additional 60mg IV x 1 this morning and will add extra dose this evening of the same Wt in 84-89kg range hospitalization Dec 2020, in the 90s during January. 91.6kg on admission but no weight yet obtained -- ordered daily Repeat CXR stable/slight improvement ECHO -- LV systolic function normal, moderate concentric LVH, LA mildly dilated, SEVERE VALVULAR AORTIC STENOSIS, moderate MR, mild-mod MS, RVSP elevated at 40- 50mmhg LE edema improving however does have RLE edema>LLE and will check venous doppler to r/o DVT. Appears have one done in past (patient states chronic issues with swelling of this leg but no prior trauma) Now weaned to room air, 98%. Continue to monitor I&O/daily weights --> will need f/u CHF clinic at discharge. They have seen/provided card today Patient very anxious for d/c home --> possible tomorrow. * --> suspect now that home from rehab and patient instructed no further canned soup/increased salt intake and to limit fluid intake would expect lower diuretic at d/c, possible 40bid? * --> also consider decreasing amlodipine to decrease swelling at the same time. continue adam hose * Continue to monitor response (2) Elevated troponin: Plan: Trend troponins -Suspect secondary to CHF exacerbation/demand ischemia given volume overload state Denies chest pain at present time Trop trending down diuresis as above (3) Breath shortness: Plan: Covid negative Suspect cardiac in origin versus viral URI -White count negative -Afebrile does have productive cough --> continue to monitor for any infectiosus etiology, román given recent hospitalization (4) Urinary retention: Plan: Continue home medications -Straight cath as needed voiding in urinal without issues (5) Pulmonary edema: Plan: See CHF improving on repeat CXR (6) Mitral regurgitation: Plan: Limited echo as above (7) Aortic stenosis: Plan: Limited echo TEVAR per [facility] being scheduled (8) Lower extremity edema: Plan: ADAM hose -Aggressive diuresis as above decrease amlodipine to 7.5mg for AM, likely to d/c on lasix 40mg BID at least to maintain euvolemic and f/u CHF at discharge (9) Hypertension: Plan: Continue home medication regimen -Amlodipine 10 mg p.o. daily -- could also be contributing to LE edema. consider decreasing this with increase diuretic as above. will change to 7.5mg in AM -Metoprolol 50 mg p.o. daily (10) Anemia: Plan: Likely secondary to chronic disease no further work-up indicated at this time (11) CAD (coronary atherosclerotic disease): Plan: Continue statin Continue beta-mingo Continue aspirin No BREANA inhibitor -On previous admission patient had acute kidney injury suspect waiting for creatinine to improve prior to starting -consider addition of BREANA in next 24 hours (12) CKD (chronic kidney disease) stage 3, GFR 30-59 ml/min: Plan: Cr stable despite diuresis, slight elevated but still with evidence of volume overload diuretics as above BMP in AM to ensure stability Admission and Anticipated Discharge Date Admission Date: March 20, 2021 Supervising Physician Co-Signing Physician Notes PA Supervision Note: I did not personally see or examine the patient today, but I verified all martinez points of SAMM Hope's assessment and plan with the following exceptions/additions: None Subjective patient evaluated this morning. doing well was hoping to go home decreased edema but still volume overloaded b/l LE edema has improved but notably more swelling/erythema to RLE -- patient states this is chronic. Denies any hx trauma to that extremity or hx of DVT. Will obtain dopplers Continue diuresis through today but if continues to make improvement could d/c tomorrow on increased diuretic regimen. of note, patient does endorse increased fluid intake as well as dietary indescretions regarding salt. Recently has been having lots of canned soup -- his was in rehab for hip fracture and just got home last week. Encouraged avoidance of canned soups/processed foods and also to obtain cup with measurement to limit oral intake. Having work-up for TEVAR with [facility]. Seen by HF PA today and will have f/u at discharge. Does have scale at home and can continue to monitor weights. No longer on supplementatl O2 and SpO2 98% and CXR with improvement. -2.5L overnight after 60mg IV lasix x 2. He states he typically takes 40mg in the morning and 20mg at night [employer]. Continues to have productive cough/white/yellow sputum. No hx allergies or smoking. No fever/chills. Review of Systems Review of Systems: All systems reviewed & are unremarkable except as noted in HPI & below Physical Exam Physical Exam: General: awake, alert, sitting up in chair next to bed, no acute distress, on room air ENT: slightly dry mm, trachea midline, no deviation Chest: pacemaker present -- no erythema/overt tenderness to palpation Resp: faint rales bilaterally, no wheezing/crackles, no cough/tachypnea, on room air CV: Regular rhythm, +loud, late systolic ejection murmur with radiation to carotids, 2-3+ bilateral LE pitting edema however R>L with increased calf diameter and erythema/scaling to posterior calf, non-tender to palpation, decreased pulses RLE posterior tibial. GI: +BS, soft, non-tender, no guarding : no hankins. urinal with clear yellow urine present Psych: alert, oriented to person/place/time, anxious to go home Results & Data Results & Data ([facility]) Vital Signs (Past 12 Hours) Vital Signs Pulse Resp BP Pulse Ox 03/21/21 07:47 87 18 142/80 H 95 03/21/21 01:41 86 16 130/61 94 03/20/21 21:21 97 H 22 142/81 H 97 Laboratory Results 03/21/21 03/21/21 03/21/21 Range/Units 09:11 08:41 04:45 WBC (4.8-10.8) K/uL RBC (4.7-6.1) M/uL Hgb (14.0-18.0) g/dL Hct (42-52) % MCV (80-100) fL MCH (25-34) pg MCHC (32-36) g/dL RDW Std Deviation (36.4-46.3) fL RDW Coeff of Jose A (11.5-14.5) % Plt Count (130-400) K/uL MPV (7.4-10.4) fL Immature Gran % (Auto) % Neut % (Auto) % Lymph % (Auto) % Rhea % (Auto) % Eos % (Auto) % Baso % (Auto) % Neut # (Auto) (1.4-6.5) K/uL Lymph # (Auto) (1.2-3.4) K/uL Rhea # (Auto) (0.11-0.59) K/uL Eos # (Auto) (0-0.5) K/uL Baso # (Auto) (0-0.2) K/uL Immature Gran # (Auto) (0.00-0.02) K/uL APTT (21.0-31.0) Seconds PTT Ratio Sodium (136-145) mmol/L Potassium (3.5-5.1) mmol/L Chloride (98-107) mmol/L Carbon Dioxide (21-32) mmol/L Anion Gap (3-11) BUN (6-23) mg/dl Creatinine (0.6-1.4) mg/dl Est Cr Clr Drug Dosing ml/min Est GFR ( Amer) ml/min Est GFR (Non-Af Amer) ml/min BUN/Creatinine Ratio (10-20) Glucose (70-99(Fasting)) mg/dl POC Glucose 196 H (70-99) mg/dl Estimat Average Glucose mg/dl Hemoglobin A1c (4.5-5.6) % Calcium (8.5-10.1) mg/dl Phosphorus (2.5-4.9) mg/dl Magnesium (1.7-2.4) mg/dl Total Bilirubin (0.2-1.0) mg/dl Direct Bilirubin (0-0.2) mg/dl AST (13-39) U/L ALT (7-52) U/L Alkaline Phosphatase (34-104) U/L Troponin I 0.40 H* (0-0.04) ng/ml B-Natriuretic Peptide 742 H (0-100) pg/ml Total Protein (6.0-8.3) gm/dl Albumin (3.4-5.0) gm/dl 03/21/21 03/21/21 03/21/21 Range/Units 04:45 04:45 04:45 WBC (4.8-10.8) K/uL RBC (4.7-6.1) M/uL Hgb (14.0-18.0) g/dL Hct (42-52) % MCV (80-100) fL MCH (25-34) pg MCHC (32-36) g/dL RDW Std Deviation (36.4-46.3) fL RDW Coeff of Jose A (11.5-14.5) % Plt Count (130-400) K/uL MPV (7.4-10.4) fL Immature Gran % (Auto) % Neut % (Auto) % Lymph % (Auto) % Rhea % (Auto) % Eos % (Auto) % Baso % (Auto) % Neut # (Auto) (1.4-6.5) K/uL Lymph # (Auto) (1.2-3.4) K/uL Rhea # (Auto) (0.11-0.59) K/uL Eos # (Auto) (0-0.5) K/uL Baso # (Auto) (0-0.2) K/uL Immature Gran # (Auto) (0.00-0.02) K/uL APTT 27.1 (21.0-31.0) Seconds PTT Ratio 1.0 Sodium 142 (136-145) mmol/L Potassium 4.0 (3.5-5.1) mmol/L Chloride 107 (98-107) mmol/L Carbon Dioxide 27 (21-32) mmol/L Anion Gap 8 (3-11) BUN 26 H (6-23) mg/dl Creatinine 1.46 H (0.6-1.4) mg/dl Est Cr Clr Drug Dosing 39.1 ml/min Est GFR ( Amer) 50.1 ml/min Est GFR (Non-Af Amer) 43.2 ml/min BUN/Creatinine Ratio 17.8 (10-20) Glucose 167 H (70-99(Fasting)) mg/dl POC Glucose (70-99) mg/dl Estimat Average Glucose 171 mg/dl Hemoglobin A1c 7.6 H (4.5-5.6) % Calcium 8.5 (8.5-10.1) mg/dl Phosphorus 3.1 (2.5-4.9) mg/dl Magnesium 1.9 (1.7-2.4) mg/dl Total Bilirubin 2.0 H (0.2-1.0) mg/dl Direct Bilirubin 0.3 H (0-0.2) mg/dl AST 18 (13-39) U/L ALT 11 (7-52) U/L Alkaline Phosphatase 89 (34-104) U/L Troponin I (0-0.04) ng/ml B-Natriuretic Peptide (0-100) pg/ml Total Protein 6.3 (6.0-8.3) gm/dl Albumin 3.6 (3.4-5.0) gm/dl 03/21/21 03/20/21 03/20/21 Range/Units 04:45 21:11 18:18 WBC 5.37 (4.8-10.8) K/uL RBC 3.27 L (4.7-6.1) M/uL Hgb 10.6 L (14.0-18.0) g/dL Hct 31.1 L (42-52) % MCV 95.1 (80-100) fL MCH 32.4 (25-34) pg MCHC 34.1 (32-36) g/dL RDW Std Deviation 52.1 H (36.4-46.3) fL RDW Coeff of Jose A 14.9 H (11.5-14.5) % Plt Count 134 (130-400) K/uL MPV 9.2 (7.4-10.4) fL Immature Gran % (Auto) 0.4 % Neut % (Auto) 81.0 % Lymph % (Auto) 9.1 % Rhea % (Auto) 7.8 % Eos % (Auto) 1.5 % Baso % (Auto) 0.2 % Neut # (Auto) 4.35 (1.4-6.5) K/uL Lymph # (Auto) 0.49 L (1.2-3.4) K/uL Rhea # (Auto) 0.42 (0.11-0.59) K/uL Eos # (Auto) 0.08 (0-0.5) K/uL Baso # (Auto) 0.01 (0-0.2) K/uL Immature Gran # (Auto) 0.02 (0.00-0.02) K/uL APTT (21.0-31.0) Seconds PTT Ratio Sodium (136-145) mmol/L Potassium (3.5-5.1) mmol/L Chloride (98-107) mmol/L Carbon Dioxide (21-32) mmol/L Anion Gap (3-11) BUN (6-23) mg/dl Creatinine (0.6-1.4) mg/dl Est Cr Clr Drug Dosing ml/min Est GFR ( Amer) ml/min Est GFR (Non-Af Amer) ml/min BUN/Creatinine Ratio (10-20) Glucose (70-99(Fasting)) mg/dl POC Glucose 192 H (70-99) mg/dl Estimat Average Glucose mg/dl Hemoglobin A1c (4.5-5.6) % Calcium (8.5-10.1) mg/dl Phosphorus (2.5-4.9) mg/dl Magnesium (1.7-2.4) mg/dl Total Bilirubin (0.2-1.0) mg/dl Direct Bilirubin (0-0.2) mg/dl AST (13-39) U/L ALT (7-52) U/L Alkaline Phosphatase (34-104) U/L Troponin I 0.66 H* (0-0.04) ng/ml B-Natriuretic Peptide (0-100) pg/ml Total Protein (6.0-8.3) gm/dl Albumin (3.4-5.0) gm/dl 03/20/21 03/20/21 03/20/21 Range/Units 17:57 13:11 12:58 WBC (4.8-10.8) K/uL RBC (4.7-6.1) M/uL Hgb (14.0-18.0) g/dL Hct (42-52) % MCV (80-100) fL MCH (25-34) pg MCHC (32-36) g/dL RDW Std Deviation (36.4-46.3) fL RDW Coeff of Jose A (11.5-14.5) % Plt Count (130-400) K/uL MPV (7.4-10.4) fL Immature Gran % (Auto) % Neut % (Auto) % Lymph % (Auto) % Rhea % (Auto) % Eos % (Auto) % Baso % (Auto) % Neut # (Auto) (1.4-6.5) K/uL Lymph # (Auto) (1.2-3.4) K/uL Rhea # (Auto) (0.11-0.59) K/uL Eos # (Auto) (0-0.5) K/uL Baso # (Auto) (0-0.2) K/uL Immature Gran # (Auto) (0.00-0.02) K/uL APTT (21.0-31.0) Seconds PTT Ratio Sodium (136-145) mmol/L Potassium (3.5-5.1) mmol/L Chloride (98-107) mmol/L Carbon Dioxide (21-32) mmol/L Anion Gap (3-11) BUN (6-23) mg/dl Creatinine (0.6-1.4) mg/dl Est Cr Clr Drug Dosing ml/min Est GFR ( Amer) ml/min Est GFR (Non-Af Amer) ml/min BUN/Creatinine Ratio (10-20) Glucose (70-99(Fasting)) mg/dl POC Glucose 175 H 176 H (70-99) mg/dl Estimat Average Glucose mg/dl Hemoglobin A1c (4.5-5.6) % Calcium (8.5-10.1) mg/dl Phosphorus (2.5-4.9) mg/dl Magnesium (1.7-2.4) mg/dl Total Bilirubin (0.2-1.0) mg/dl Direct Bilirubin (0-0.2) mg/dl AST (13-39) U/L ALT (7-52) U/L Alkaline Phosphatase (34-104) U/L Troponin I 0.35 H* (0-0.04) ng/ml B-Natriuretic Peptide (0-100) pg/ml Total Protein (6.0-8.3) gm/dl Albumin (3.4-5.0) gm/dl PG Care Time/CCT Total # of Minutes Spent Total Time Spent with Patient: Total time spent is greater than 50% in coordination of care (as documented) at patient's floor/unit and/or counseling patient: Coding Level of Care Code 01678 Subseq Hosp Care Lvl 3 Diagnoses CHF (congestive heart failure) I50.9 Heart failure chronicity: unspecified Heart failure type: unspecified Elevated troponin R77.8 Breath shortness R06.02 Urinary retention R33.9 Pulmonary edema J81.1 Mitral regurgitation I34.0 Aortic stenosis I35.0 Cardiac valve disease etiology: etiology unspecified Lower extremity edema R60.0 Hypertension I10 Anemia D64.9 Anemia type: unspecified type CAD (coronary atherosclerotic disease) I25.810 Associated angina: unspecified whether angina present Coronary Disease-Associated Artery/Lesion type: bypass graft [place] vs. transplanted heart: [place] heart CKD (chronic kidney disease) stage 3, GFR 30-59 ml/min N18.30 (1) CAD (coronary atherosclerotic disease) Associated angina: unspecified whether angina present Coronary Disease- Associated Artery/Lesion type: bypass graft [place] vs. transplanted heart: [place] heart Qualified Code(s): I25.810 - Atherosclerosis of coronary artery bypass graft(s) without angina pectoris (2) CHF (congestive heart failure) Heart failure chronicity: unspecified Heart failure type: unspecified Qualified Code(s): I50.9 - Heart failure, unspecified (3) Anemia Anemia type: unspecified type Qualified Code(s): D64.9 - Anemia, unspecified (4) Aortic stenosis Cardiac valve disease etiology: etiology unspecified Qualified Code(s): I35.0 - Nonrheumatic aortic (valve) stenosis
[2021-03-21] MEDS ORDERED: FUROSEMIDE INJ 20 MG/2 ML VIAL IV ONE (08:00)
[2021-03-21] MEDS ORDERED: POTASSIUM CHLORIDE CRTAB 20 MEQ TABCR PO STA (08:00)
[2021-03-21] MEDS: TAMSULOSIN HCL 0.4 MG CAP PO SCH (08:51)
[2021-03-21] MEDS: METOPROLOL SUCC 50MG EXT REL TAB PO SCH (08:51)
[2021-03-21] MEDS: ASPIRIN 81 MG ECTAB PO SCH (08:51)
[2021-03-21] MEDS: FINASTERIDE 5 MG TAB PO SCH (08:52)
[2021-03-21] MEDS ORDERED: FUROSEMIDE 20 MG TAB PO SCH (09:00)
[2021-03-21] MEDS ORDERED: amLODIPine BESYLATE 5 MG TAB PO SCH (09:00)
[2021-03-21] MEDS: INSULIN ASPART PER UNIT SC SCH ×4 (09:01→21:23)
--- NOTE | 2021-03-21 12:35 | Ultrasound Report ---
US venous doppler LE BI CLINICAL HISTORY: r/o DVT, R>L edema with erythema COMPARISON: None available at the time of this dictation. TECHNIQUE: Bilateral lower extremity real-time compression venous ultrasound with Color Doppler imagi ng. Utilizing real-time ultrasonic imaging multiple real time high-resolution ultrasonic images with comp ression and noncompression maneuvers of the deep venous system in addition to color doppler imaging w ere performed from the common femoral vein through the proximal calf veins. FINDINGS: Currently there is normal compressibility of the deep venous system from the common femoral vein thro ugh the proximal calf veins. No current evidence of acute thrombosis is identified. A right popliteal cyst is noted measuring 4.7 x 5.5 x 1.5 cm. Impression: No evidence of deep venous thrombus. ACT 112: Negative or not required by law. Electronically signed by: Rufus Mckinley M.D. 03/21/2021 12:34 PM
[2021-03-21] MEDS: ENOXAPARIN INJ 30 MG/0.3 ML SYR SQ SCH (13:46)
--- NOTE | 2021-03-21 16:09 | Heart Failure Consultation ---
Date of Consultation March 21, 2021 Assessment & Plan (1) Acute heart failure with preserved ejection fraction (HFpEF): (2) Mitral regurgitation: (3) Aortic stenosis: (4) Hypertension: (5) CAD (coronary atherosclerotic disease): (6) Pacemaker: Acute HFpEF: Patient currently NYHA Class II-III symtpoms. Etiology likely severe valvular disease exacerbated by recent dietary indiscretion. He appears hypervolemic on exam. He is currently ordered Lasix 60 mg IV BID and is responding well. Net negative 3 L so far with clinical improvement. Would continue current dose with a goal of negative 1-2 L per day. Need to be cautious not to over-diurese in the setting of severe . Continue to monitor kidney function and electrolytes. Consider 40 mg BID on discharge with close HF follow up. Low sodium diet, less than 2,000 mg daily. Strict I&Os while in patient. Daily STANDING weights. We discussed the nature of heart failure and the goals of the program. He is agreeable to ongoing participation. Aortic stenosis: Severe. Recently evaluated by [facility] TAVR team. Awaiting input from structural heart team for further workup and decision. Pacemaker: Follow up for post up device check with Dr. Rodriguez/Dinh next week. Will try to coordinate HF appt. Hypertension: Continue medical therapy. Disposition: Will enroll in the heart failure program. Follow up / at 2:30 pm (same day as device follow up) History of Present Illness Attending Physician: Alicia Hendrickson MD History of Present Illness The patient is an 85-year-old gentleman with history of coronary disease s/p surgical revascularization in 2007, severe aortic stenosis, hypertension, dyslipidemia, type 2 diabetes, BPH, and hx of colon CA. Dr. Rodriguez is his primary substance abuse nurse. Recent cardiac studies: 1. 03/20/21 Echo: LVSF normal, EF 55-60%. Moderate LVH. Left atrium mildly dilated. Severe . Moderate MR. Mild to mod MS. RVSP elevated 40-50 mmHg. His initial cardiac evaluation 2007 was prompted by abnormal stress test leading up to a colectomy for colon cancer. He did not recall symptoms of chest discomfort, back discomfort her exertional dyspnea at that time. He was hospitalized on 01/17/21. Troponin was mildly elevated up to 0.147. Echo demonstrated preserved LV systolic function with severe aortic stenosis, mild mitral stenosis, and moderate mitral regurgitation. He underwent cardiac catheterization on 01/21/21, which showed severe [place] vessel disease involving the left main, LAD, and LCx with patent CLEARY-LAD and reverse SVG-OM. There was no obstructive disease in the RCA. It was believed that his symptoms were secondary to his severe aortic stenosis, and it was recommended he be referred for consideration of a TAVR. He was discharged on 01/22/21. He was readmitted on 02/18/21 in complete heart block. Underwent pacemaker insertion with Dr. Rodriguez. He was discharged 02/20/21. He was evaluated 03/19/21 at [facility] for TAVR. He is waiting on response from the structural heart team for further planning. Patient presented to the ED on 03/20/21 with worsening shortness of breath. Admits to significant dietary indiscretion prior to admission. BNP elevated at 600. CXR with pulmonary edema. He was hypervolemic on exam. EF 55-60%. He was treated with Lasix 20 mg IV. He was on 2 L O2. He was ordered Lasix 60 mg IV BID on admission. He's responding well, net negative 3 L so far. He was evaluated today in the ED. He feels improved clinically as well. He reports his breathing is improved. He continues to have lower extremity edema. He is tolerating room air. He denies chest pain, palpitations, cough. He does not have a documented weight today. Allergies Allergy/AdvReac Type Severity Reaction Status Date / Time No Known Allergies Allergy Mild NONE Verified 02/14/21 13:11 Home Medications Medication Instructions Recorded Confirmed Type amlodipine 10 mg tablet 10 mg PO DAILY 01/17/21 03/20/21 History finasteride 5 mg tablet 5 mg PO DAILY 01/17/21 03/20/21 History furosemide 40 mg tablet 60 mg PO DAILY 01/17/21 03/20/21 History glipizide 10 mg tablet 20 mg PO BID 01/17/21 03/20/21 History metoprolol succinate 50 mg 50 mg PO DAILY 01/17/21 03/20/21 History tablet,extended release 24 hr simvastatin 20 mg tablet 20 mg PO HS 01/17/21 03/20/21 History tamsulosin 0.4 mg capsule 0.4 mg PO DAILY 01/17/21 03/20/21 History aspirin 81 mg tablet,delayed 81 mg PO DAILY #30 tab 01/22/21 03/20/21 Rx release Patient History Medical History BPH w urinary obs/LUTS Coronary artery disease Diabetes Hypercholesterolemia Hypertension Lower extremity edema Subdural hematoma Surgical History History of heart bypass surgery Status post evacuation of subdural hematoma Social History Smoking Status: Former smoker Tobacco Type: Cigarettes Do You Dip or Chew Tobacco: No; Hx Alcohol Use: No Hx Substance Use: No Preferred Language: Amharic Communication Ability: Effective Earth Moving Technician Required: No Beliefs That Will Affect Care: None marital status: Current Living Situation: Spouse and Family current occupational status: employed and retired How many Children do You have: 3 Other Information That Helps Us Care for You: No Feels Safe at Home: Yes Safety Concerns: Feels Safe At This Time Assistive Devices: None Assistive Devices Comment: Uses glasses for reading. Physical Exam Physical Exam: Constitutional: Alert, oriented, in no acute distress HEENT: Head is atraumatic and normocephalic. EOMs intact. Sclera anicteric. Face is symmetric. No perioral cyanosis. Mucous membranes moist. Neck: Supple, JVD noted detention to the mandible sitting upright. + HJR Pulmonary: Normal respiratory effort, bibasilar crackles. Cardiac: Regular rate and rhythm. Normal S1 and S2, no gallops, no rubs, 2/6 crescendo systolic murmur Extremities: 2+ radial pulses bilaterally. 2+ posterior tibialis pulses bilaterally. 2+ pitting edema. No cyanosis or clubbing. Abdomen: Normal bowel sounds, soft, non-tender, no abdominal mass palpated Skin: Normal skin color, turgor, and pigmentation, no rash, no skin lesions Neurological: Patient is awake, alert, and oriented. Pleasant and cooperative. Answers questions appropriately. Speech is clear. Normal movement in all 4 extremities. Results & Data ([facility]) Vital Signs (Past 12 Hours) Vital Signs Pulse Resp BP Pulse Ox Pulse Ox Pulse Ox Pulse Ox 03/21/21 10:30 98 98 81 L 03/21/21 07:47 87 18 142/80 H 95 Coding Level of Care Code 26858 Initial Inpt Care Lvl 3 Diagnoses Acute heart failure with preserved ejection fraction (HFpEF) I50.31 Mitral regurgitation I34.0 Aortic stenosis I35.0 Cardiac valve disease etiology: etiology unspecified Hypertension I10 CAD (coronary atherosclerotic disease) I25.810 Associated angina: unspecified whether angina present Coronary Disease-Associated Artery/Lesion type: bypass graft [place] vs. transplanted heart: [place] heart Pacemaker Z95.0 (1) CAD (coronary atherosclerotic disease) Associated angina: unspecified whether angina present Coronary Disease- Associated Artery/Lesion type: bypass graft [place] vs. transplanted heart: [place] heart Qualified Code(s): I25.810 - Atherosclerosis of coronary artery bypass graft(s) without angina pectoris (2) Aortic stenosis Cardiac valve disease etiology: etiology unspecified Qualified Code(s): I35.0 - Nonrheumatic aortic (valve) stenosis
[2021-03-21] MEDS ORDERED: FUROSEMIDE 40 MG/4 ML VIAL IV ONE (21:00)
[2021-03-21] MEDS: SIMVASTATIN 20 MG TAB PO SCH (21:11)
[2021-03-22 04:30] LABS: Basophils # (auto) 0.01 K/uL (0-0.2); Basophils % (auto) 0.2 %; Eosinophils % (auto) 2.3 %; Hematocrit (blood only) 29.9 % (42-52); Hemoglobin 9.9 g/dL (14.0-18.0); Immature Granulocytes # (auto) 0.01 K/uL (0.00-0.02); Immature Granulocytes % (auto) 0.2 %; Lymphocytes # (auto) 0.75 K/uL (1.2-3.4); Lymphocytes % (auto) 17.4 %; Mean Corpuscular Hemoglobin 31.9 pg (25-34); Mean Corpuscular Hgb Conc 33.1 g/dL (32-36); Mean Corpuscular Volume 96.5 fL (80-100); Mean Platelet Volume 9.1 fL (7.4-10.4); Monocytes # (auto) 0.26 K/uL (0.11-0.59); Neutrophils # (auto) 3.18 K/uL (1.4-6.5); Neutrophils % (auto) 73.9 %; Platelet Count 137 K/uL (130-400); RDW Coefficient of Variation 14.9 % (11.5-14.5); RDW Standard Deviation 52.8 fL (36.4-46.3); White Blood Count 4.31 K/uL (4.8-10.8)
[2021-03-22 04:52] LABS: BUN Creatinine Ratio 22.5 (10-20); Calcium 8.2 mg/dl (8.5-10.1); Creatinine Clr Calc Pharmacy 33.8 ml/min; Est GFR (Non-African American) 36.2 ml/min; Magnesium 1.9 mg/dl (1.7-2.4); Phosphorus 3.6 mg/dl (2.5-4.9); Potassium 3.7 mmol/L (3.5-5.1)
--- NOTE | 2021-03-22 07:44 | Hospitalist Progress Note ---
Date of Service March 22, 2021 Assessment & Plan Admission and Anticipated Discharge Date Admission Date: March 21, 2021 Results & Data Results & Data ([facility]) Vital Signs (Past 12 Hours) Vital Signs Temp Pulse Resp BP Pulse Ox 03/22/21 07:30 36.4 C L 73 21 139/74 96 03/22/21 03:04 36.4 C L 76 24 120/60 95 03/21/21 23:15 36.6 C 87 24 118/65 97 Laboratory Results 03/22/21 03/22/21 03/22/21 Range/Units 07:05 04:16 04:16 WBC 4.31 L (4.8-10.8) K/uL RBC 3.10 L (4.7-6.1) M/uL Hgb 9.9 L (14.0-18.0) g/dL Hct 29.9 L (42-52) % MCV 96.5 (80-100) fL MCH 31.9 (25-34) pg MCHC 33.1 (32-36) g/dL RDW Std Deviation 52.8 H (36.4-46.3) fL RDW Coeff of Jose A 14.9 H (11.5-14.5) % Plt Count 137 (130-400) K/uL MPV 9.1 (7.4-10.4) fL Immature Gran % (Auto) 0.2 % Neut % (Auto) 73.9 % Lymph % (Auto) 17.4 % Montgomery % (Auto) 6.0 % Eos % (Auto) 2.3 % Baso % (Auto) 0.2 % Neut # (Auto) 3.18 (1.4-6.5) K/uL Lymph # (Auto) 0.75 L (1.2-3.4) K/uL Montgomery # (Auto) 0.26 (0.11-0.59) K/uL Eos # (Auto) 0.10 (0-0.5) K/uL Baso # (Auto) 0.01 (0-0.2) K/uL Immature Gran # (Auto) 0.01 (0.00-0.02) K/uL Sodium 137 (136-145) mmol/L Potassium 3.7 (3.5-5.1) mmol/L Chloride 103 (98-107) mmol/L Carbon Dioxide 25 (21-32) mmol/L Anion Gap 9 (3-11) BUN 38 H (6-23) mg/dl Creatinine 1.69 H (0.6-1.4) mg/dl Est Cr Clr Drug Dosing 33.8 ml/min Est GFR ( Amer) 42.0 ml/min Est GFR (Non-Af Amer) 36.2 ml/min BUN/Creatinine Ratio 22.5 H (10-20) Glucose 156 H (70-99(Fasting)) mg/dl POC Glucose 191 H (70-99) mg/dl Calcium 8.2 L (8.5-10.1) mg/dl Phosphorus 3.6 (2.5-4.9) mg/dl Magnesium 1.9 (1.7-2.4) mg/dl Troponin I (0-0.04) ng/ml Nasal Screen MRSA (PCR) (Negative) 03/21/21 03/21/21 03/21/21 Range/Units 21:16 18:48 18:15 WBC (4.8-10.8) K/uL RBC (4.7-6.1) M/uL Hgb (14.0-18.0) g/dL Hct (42-52) % MCV (80-100) fL MCH (25-34) pg MCHC (32-36) g/dL RDW Std Deviation (36.4-46.3) fL RDW Coeff of Jose A (11.5-14.5) % Plt Count (130-400) K/uL MPV (7.4-10.4) fL Immature Gran % (Auto) % Neut % (Auto) % Lymph % (Auto) % Montgomery % (Auto) % Eos % (Auto) % Baso % (Auto) % Neut # (Auto) (1.4-6.5) K/uL Lymph # (Auto) (1.2-3.4) K/uL Montgomery # (Auto) (0.11-0.59) K/uL Eos # (Auto) (0-0.5) K/uL Baso # (Auto) (0-0.2) K/uL Immature Gran # (Auto) (0.00-0.02) K/uL Sodium (136-145) mmol/L Potassium (3.5-5.1) mmol/L Chloride (98-107) mmol/L Carbon Dioxide (21-32) mmol/L Anion Gap (3-11) BUN (6-23) mg/dl Creatinine (0.6-1.4) mg/dl Est Cr Clr Drug Dosing ml/min Est GFR ( Amer) ml/min Est GFR (Non-Af Amer) ml/min BUN/Creatinine Ratio (10-20) Glucose (70-99(Fasting)) mg/dl POC Glucose 211 H 210 H (70-99) mg/dl Calcium (8.5-10.1) mg/dl Phosphorus (2.5-4.9) mg/dl Magnesium (1.7-2.4) mg/dl Troponin I (0-0.04) ng/ml Nasal Screen MRSA (PCR) Negative (Negative) 03/21/21 03/21/21 03/21/21 Range/Units 17:32 12:56 09:11 WBC (4.8-10.8) K/uL RBC (4.7-6.1) M/uL Hgb (14.0-18.0) g/dL Hct (42-52) % MCV (80-100) fL MCH (25-34) pg MCHC (32-36) g/dL RDW Std Deviation (36.4-46.3) fL RDW Coeff of Jose A (11.5-14.5) % Plt Count (130-400) K/uL MPV (7.4-10.4) fL Immature Gran % (Auto) % Neut % (Auto) % Lymph % (Auto) % Montgomery % (Auto) % Eos % (Auto) % Baso % (Auto) % Neut # (Auto) (1.4-6.5) K/uL Lymph # (Auto) (1.2-3.4) K/uL Montgomery # (Auto) (0.11-0.59) K/uL Eos # (Auto) (0-0.5) K/uL Baso # (Auto) (0-0.2) K/uL Immature Gran # (Auto) (0.00-0.02) K/uL Sodium (136-145) mmol/L Potassium (3.5-5.1) mmol/L Chloride (98-107) mmol/L Carbon Dioxide (21-32) mmol/L Anion Gap (3-11) BUN (6-23) mg/dl Creatinine (0.6-1.4) mg/dl Est Cr Clr Drug Dosing ml/min Est GFR ( Amer) ml/min Est GFR (Non-Af Amer) ml/min BUN/Creatinine Ratio (10-20) Glucose (70-99(Fasting)) mg/dl POC Glucose 220 H 207 H (70-99) mg/dl Calcium (8.5-10.1) mg/dl Phosphorus (2.5-4.9) mg/dl Magnesium (1.7-2.4) mg/dl Troponin I 0.40 H* (0-0.04) ng/ml Nasal Screen MRSA (PCR) (Negative) 03/21/21 Range/Units 08:41 WBC (4.8-10.8) K/uL RBC (4.7-6.1) M/uL Hgb (14.0-18.0) g/dL Hct (42-52) % MCV (80-100) fL MCH (25-34) pg MCHC (32-36) g/dL RDW Std Deviation (36.4-46.3) fL RDW Coeff of Jose A (11.5-14.5) % Plt Count (130-400) K/uL MPV (7.4-10.4) fL Immature Gran % (Auto) % Neut % (Auto) % Lymph % (Auto) % Montgomery % (Auto) % Eos % (Auto) % Baso % (Auto) % Neut # (Auto) (1.4-6.5) K/uL Lymph # (Auto) (1.2-3.4) K/uL Montgomery # (Auto) (0.11-0.59) K/uL Eos # (Auto) (0-0.5) K/uL Baso # (Auto) (0-0.2) K/uL Immature Gran # (Auto) (0.00-0.02) K/uL Sodium (136-145) mmol/L Potassium (3.5-5.1) mmol/L Chloride (98-107) mmol/L Carbon Dioxide (21-32) mmol/L Anion Gap (3-11) BUN (6-23) mg/dl Creatinine (0.6-1.4) mg/dl Est Cr Clr Drug Dosing ml/min Est GFR ( Amer) ml/min Est GFR (Non-Af Amer) ml/min BUN/Creatinine Ratio (10-20) Glucose (70-99(Fasting)) mg/dl POC Glucose 196 H (70-99) mg/dl Calcium (8.5-10.1) mg/dl Phosphorus (2.5-4.9) mg/dl Magnesium (1.7-2.4) mg/dl Troponin I (0-0.04) ng/ml Nasal Screen MRSA (PCR) (Negative) PG Care Time/CCT Total # of Minutes Spent Total Time Spent with Patient: Total time spent is greater than 50% in coordination of care (as documented) at patient's floor/unit and/or counseling patient: Coding
[2021-03-22 08:09] LABS: Reticulocyte % 2.9 % (0.5-2.0); Reticulocytes # 0.09 10^6/uL (0.02-0.10)
--- NOTE | 2021-03-22 08:09 | XRay Report ---
XR chest 1V portable HISTORY: 85 years-old Male f/u congestion acute shortness of breath COMPARISON: Chest radiograph 03/21/2021 TECHNIQUE: Portable AP view of the chest FINDINGS: Cardiac silhouette is enlarged. Prior median sternotomy. Left subclavian pacer. No pneumothorax. Smal l pleural effusions with mild bibasilar densities. Slight improvement of the mixed interstitial and a lveolar opacities. Degenerative changes of the shoulders and spine. IMPRESSION: 1. Cardiomegaly with stable to slightly improved aeration of the lungs. 2. Trace pleural effusions. ACT 112: Negative or not required by law. The above report was generated using voice recognition software. It may contain grammatical, syntax o r spelling errors. Electronically signed by: Rafael Jones M.D. 03/22/2021 8:08 AM
[2021-03-22 08:47] LABS: Ferritin 65.9 ng/ml (8-388)
[2021-03-22] MEDS: INSULIN ASPART PER UNIT SC SCH ×2 (08:49→12:28)
[2021-03-22] MEDS: ASPIRIN 81 MG ECTAB PO SCH (08:50)
[2021-03-22] MEDS: METOPROLOL SUCC 50MG EXT REL TAB PO SCH (08:50)
[2021-03-22] MEDS: FINASTERIDE 5 MG TAB PO SCH (08:50)
[2021-03-22] MEDS: TAMSULOSIN HCL 0.4 MG CAP PO SCH (08:52)
[2021-03-22 08:53] LABS: Folate (Folic Acid) 10.81 ng/ml (>5.38)
[2021-03-22] MEDS ORDERED: amLODIPine BESYLATE 5 MG TAB PO SCH (09:00)
[2021-03-22] MEDS ORDERED: CYANOCOBALAMIN 1000 MCG/ML VIAL IM SCH (10:30)
--- NOTE | 2021-03-22 11:32 | Discharge Summary ---
Date of Service March 22, 2021 Admission HPI Per Admitting Provider Patient is an 85-year-old male with past medical history of coronary artery disease status post bypass, hypertension, hyperlipidemia, mitral regurgitation, aortic stenosis, complete heart block and AICD placement in February 18, 2021 who presents with several day history of increasing shortness of breath. Reports he had follow-up in [place] yesterday with cardiovascular surgery to evaluate for TEVAR for his aortic stenosis. He was particularly short of breath and required to be pushed around in a wheelchair. Patient does not admit to being told of a fluid restriction nor does he particularly watch his sodium. His son is at the bedside provides additional information that he eats chicken pot pie in the hospital cafeteria and then had a bag of potato chips on the way home. There is also fluid intake indiscretion. Patient feels like he has more swelling in his lower extremities he normally wears ADAM hose and he has not been wearing them. He denies chest pain he has a mild productive cough with yellow sputum denies fevers chills. No change in his bowel habits no melena no black tarry stools. Admission Exam Per Admitting Provider General: Alert. nontoxic. Pleasant sitting reclined in stretcher Skin: Warm, dry, Head: Atraumatic Ears, nose, mouth and throat: airway patent Cardiovascular: Normal peripheral perfusion, mild tachycardia Respiratory: no respiratory distress, Rales and rhonchi bilaterally mild Gastrointestinal: Non distended Musculoskeletal: No deformity, 2+ pitting edema the bilateral lower extremities Principal Diagnosis CHF exacerbation, Aortic Stenosis Discharge Exam General: awake, alert, sitting up in chair next to bed, no acute distress, on room air ENT: slightly dry mm, trachea midline, no deviation Chest: pacemaker present -- no erythema/overt tenderness to palpation Resp: faint rales bilaterally, no wheezing/crackles, no cough/tachypnea, on room air CV: Regular rhythm, +loud, late systolic ejection murmur with radiation to carotids, 2+ bilateral LE pitting edema however R>L with increased calf diameter and erythema/scaling to posterior calf, non-tender to palpation, decreased pulses RLE posterior tibial. GI: +BS, soft, non-tender, no guarding : no [place]. urinal with clear yellow urine present Psych: alert, oriented to person/place/time, anxious to go home Discharge Data Allergies Allergy/AdvReac Type Severity Reaction Status Date / Time No Known Allergies Allergy Mild NONE Verified 02/14/21 13:11 Consultations 03/20/21 07:30 ED Decision to Admit Stat 03/20/21 09:29 [facility] [place] Referral Routine Ordered Studies Chest X-Ray 03/20/21 06:33 XR chest 1V portable CLINICAL HISTORY: Atypical chest pain TECHNIQUE: Single frontal radiograph of the chest was obtained. Comparison: Comparison is made to chest 2 views 02/19/2021 FINDINGS: Stable median sternotomy wires and dual-lead pacemaker. Cardiomegaly is noted. There is prominence and cephalization of the vasculature with Alyson B lines seen. No evidence of pleural effusion or pneumothorax. IMPRESSION: Moderate pulmonary edema. Stable cardiomegaly. ACT 112: Negative or not required by law. Electronically signed by: Rufus Mckinley M.D. 03/20/2021 7:09 AM Chest X-Ray 03/21/21 06:00 XR chest 1V portable HISTORY: 85 years-old Male intubation acute respiratory failure COMPARISON: Chest radiograph 03/20/2021 TECHNIQUE: Portable AP view of the chest FINDINGS: The cardiac silhouette is enlarged. Prior median sternotomy. Left subclavian pacer. No pneumothorax. Trace pleural effusions. Pulmonary vascular congestion with interstitial coarsening. Ill-defined bibasilar predominant airspace opacities. There is stable to slightly improved aeration of the lungs compared to prior. Degenerative changes of the shoulders and spine. IMPRESSION: 1. Cardiomegaly with persistent mixed interstitial and alveolar opacities which appear stable to slightly improved. 2. Trace pleural effusions. ACT 112: Negative or not required by law. The above report was generated using voice recognition software. It may contain grammatical, syntax or spelling errors. Electronically signed by: Rafael Jones M.D. 03/21/2021 7:24 AM Venous Doppler Study 03/21/21 11:36 US venous doppler LE BI CLINICAL HISTORY: r/o DVT, R>L edema with erythema COMPARISON: None available at the time of this dictation. TECHNIQUE: Bilateral lower extremity real-time compression venous ultrasound with Color Doppler imaging. Utilizing real-time ultrasonic imaging multiple real time high-resolution ultrasonic images with compression and noncompression maneuvers of the deep venous system in addition to color doppler imaging were performed from the common femoral vein through the proximal calf veins. FINDINGS: Currently there is normal compressibility of the deep venous system from the common femoral vein through the proximal calf veins. No current evidence of acute thrombosis is identified. A right popliteal cyst is noted measuring 4.7 x 5.5 x 1.5 cm. Impression: No evidence of deep venous thrombus. ACT 112: Negative or not required by law. Electronically signed by: Rufus Mckinley M.D. 03/21/2021 12:34 PM Chest X-Ray 03/22/21 07:43 XR chest 1V portable HISTORY: 85 years-old Male f/u congestion acute shortness of breath COMPARISON: Chest radiograph 03/21/2021 TECHNIQUE: Portable AP view of the chest FINDINGS: Cardiac silhouette is enlarged. Prior median sternotomy. Left subclavian pacer. No pneumothorax. Small pleural effusions with mild bibasilar densities. Slight improvement of the mixed interstitial and alveolar opacities. Degenerative changes of the shoulders and spine. IMPRESSION: 1. Cardiomegaly with stable to slightly improved aeration of the lungs. 2. Trace pleural effusions. ACT 112: Negative or not required by law. The above report was generated using voice recognition software. It may contain grammatical, syntax or spelling errors. Electronically signed by: Rafael Jones M.D. 03/22/2021 8:08 AM 03/20/21 ECHO LV systolic function normal. Moderate concentric LVH. LA mildly dilated. Severe valvular aortic stenosis. Moderate MR, mild-moderate MS. RVSP elevated at 4- 50mmhg Hospital Course (1) CHF (congestive heart failure): Patient with PMHx CAD s/p bypass (CLEARY to LAD) presented after recent admission for complete heart block requiring placement of pacemaker by Dr. Rodriguez 02/18/21. 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 Seen [place] [facility] [place] for consideration of TAVR noted increasing LE edema/shortness of breath but did also note eating lots of soups/chips as recently broke hip/hospital/rehab and just got home this past week in a patient with known severe /mitral disease acute on chronic diastolic CHF 2nd to valvular disease Weight was 91.6kg on admission * --> Wt in 84-89kg range hospitalization Dec 2020, in the January ECHO -- LV systolic function normal, moderate concentric LVH, LA mildly dilated, SEVERE VALVULAR AORTIC STENOSIS, moderate MR, mild-mod MS, RVSP elevated at 40- 50mmhg congestion on CXR and elevated BNP on admission Lasix 60mg IV BID on admission, additional 60mg IV AM of discharge. Cr stable Repeat CXR stable/slight improvement, remained stable on room air, no further shortness of breath Decreased amlodipine to 7.5mg from 10 and would further decrease as able as also likely contributing but defer to Dr Rodriguez in follow up Net negative 3L while inpatient via I&O but also had some unmeasured voids Wt 83.8 kg prior to discharge --> To monitor daily weights at home and will have f/u with CHF clinic Discharged on increased lasix to 40mg BID and encouraged compression stock ing/low sodium diet/avoidance of SOUP/canned or preprepared meals Monitor fluid intake/limit excess free water intake (2) Elevated troponin: Trend troponins -Suspect secondary to CHF exacerbation/demand ischemia given volume overload state Denies chest pain at present time Trop trending down on repeat diuresis as above (3) Breath shortness: Covid negative Suspect cardiac in origin versus viral URI -White count negative -Afebrile ?viral vs due to #1., no abx Also, anemic --> B12 deficiency --> IM while inpatient, IM weekly per PCP if able to arrange but was d/c on oral supplementation to continue at discharge (4) Anemia: chronic, but did check iron/B12 B12 LOW 83 --> IM INJECTIONS WHILE INPATIENT --> Instructed to ask PCP about weekly injections but to take oral supplementation in the meantime Admitted to some memory issues/neuropathy --> likely contributing and hopefully will improve with tx (5) Urinary retention: Continued home medications voiding without issue (6) Pulmonary edema: See CHF improved on repeat CXR continue lasix 40mg BID at discharge, f/u CHF clinic and [facility] for TAVR as above (7) Mitral regurgitation: Limited echo as above (8) Aortic stenosis: Limited echo TAVR per [facility] being scheduled (9) Lower extremity edema: ADAM hose Diuresis as above Lasix increased to 40mg BID as above at discharge LE edema stable/improved compared to day prior however does have some aspect of dependent edema --> Encouraged compression stockings at d/c decreased amlodipine as above, consider further titration outpatient per cards in follow up (10) Hypertension: Continued metoprolol 50mg daily AMlodipine 10mg --> 7.5mg at discharge as contributing to edema Lasix increased to 40mg BID as above BP stable at d/d 132/68 (11) CAD (coronary atherosclerotic disease): Continue statin Continue beta-mingo Continue aspirin Not on BREANA inhibitor --> consider addition as outpatient (12) CKD (chronic kidney disease) stage 3, GFR 30-59 ml/min: Cr stable despite diuresis, but slightly elevated prior to discharge and further diuretics held in AM prior to d/c but to resume 40mg dose in evening Instructed patient to have f/u PCP in next week for continued monitoring Total Time Total Time Spent Total Time Spent (In Minutes): 45 Discharge Plan Discharge Items Patient Disposition: Home - Self-Care Reason For Visit: DYSNPEA Discharge Diagnosis: Aortic Stenosis, CHF, B12 deficiency Goals: You have been hospitalized for an acute medical problem. During your stay at [facility], we have made an effort to correct the problem that brought you to the hospital while keeping you as comfortable as possible. Medications were used to bring your condition under control and your discharge instructions will include directions for any medications you should take after leaving the hospital. Please make sure you see your Primary Care Provider as part of your follow up plan. Activity: Resume your previous activity Non-emergency contact: Primary Care Provider, Specialist and Internal Affairs Commander Call non-emergency contact if: you have any medication questions, your symptoms worsen and your pain is not controlled Follow-up/Referrals: Dinh Cuba PA-C [Physician Dental Prosthetist] - 03/27/21 2:00 pm Robert Quinones MD [Primary Care Provider] - 03/25/21 2:00 pm Christina Albert PA-C [Physician Dental Prosthetist] - 03/27/21 2:30 pm Diet: Heart Healthy and Low Sodium (2gm) Fluids: 2000ml (8 cups) Addtl Attending Provider Instructions: You have been hospitalized for shortness of breath and edema in the legs. You were found to be in congestive heart failure, likely from your aortic stenosis and increased salt intake. You were given diuretics and are no longer on oxygen. You should continue a 2000mL water restriction daily and adhere to a low salt diet at discharge and will have follow up with Christina Albert (physician cardiovascular physician assistant) who works with Dr Rodriguez for continued monitoring. You are being discharged on Lasix 40mg by mouth twice a day and should continue to monitor your weights daily. Your weight today is close to 184lb. If you have increase above 3lb in a 24 hour period or 5lb in a week you need to call the CHF clinic for further instructions. You should continue to use compression stocking for edema and your amlodipine h as been decreased to 7.5mg daily. This can be further decreased as able during follow up with Dr. Rodriguez as this can contribute to lower extremity edema. Your blood counts were also low, but stable compared to prior values. I checked iron studies which were normal but your B12 was very low. You were given a shot of B12 but should continue this weekly with your primary care if able to arrange, but in the meantime have been sent with oral supplementation. This should help with building red blood cells as well as neuropathy and confusion/memory issues as well. You will need follow up with Dr. Rodriguez for pacemaker check. The appointment with Jocy Albert has been made on the same day. Please follow up with [place] for further eval/valve replacement as you have been doing. Please return to the emergency department with any increased shortness of breath/chest pain, or for any other symptoms concerning for you. It has been a pleasure being a part of the medical team providing for you while you have been in the hospital. Take care! Addtl Butane Compressor Operator Provider Instructions: Call 911 and go to the Emergency Room if: * You have tightness or pain in your chest that does not go away with rest or Nitroglycerin * You are very short of breath even with rest Call your doctor if any of the following symptoms or problems start or get worse: * Shortness of breath or difficulty breathing * Wake up at night short of breath * Chest pain * Cough * Swelling of your hands, fee, or legs * More fatigued or tired with your normal activity * Palpitations - sudden fast heart beats WEIGHT * Weigh yourself every morning after using the bathroom. * Use the same scale. * Wear the same amount of clothing. * Write your weight down on your chart. * Call your doctor if you gain more than 2-3 pounds in 1-2 days. MEDICATIONS * Use this discharge instruction sheet for instructions. * Take your medications at the time your doctor ordered. * Do not skip a dose of your medicines. * If you miss a dose of medicine, take as soon as possible, but DO NOT DOUBLE A DOSE. * Read your medicine information when you get home. * Know all of the side effects of your medicine. * Call your doctor's office if you have any side effects. * Be sure all of your doctors know what medicine and herbs you take (including cold, flu, and herbal medicine). * Pain Medicine: If you do not get relief from your pain, please call your doctor for help. Take the following with you to your follow-up doctor appointments: * Weight Chart * Medication List * List of questions Do not drink excessive alcohol, beer or wine. Pending Studies at Discharge: No Stand-Alone Forms: [facility] [place], Smoking Cessation Medications and DC Order Prescriptions: New amlodipine [Norvasc] 5 mg Tablet 7.5 mg PO DAILY 30 Days Qty: 45 RF: 0 furosemide 40 mg tablet 40 mg PO BID Qty: 60 RF: 0 cyanocobalamin (vitamin B-12) 5,000 mcg capsule 5,000 mcg PO DAILY Qty: 30 RF: 0 Continued metoprolol succinate 50 mg tablet extended release 24 hr 50 mg PO DAILY RF: 0 glipizide 10 mg tablet 20 mg PO BID RF: 0 tamsulosin 0.4 mg capsule 0.4 mg PO DAILY RF: 0 simvastatin 20 mg tablet 20 mg PO HS RF: 0 finasteride 5 mg tablet 5 mg PO DAILY RF: 0 aspirin 81 mg Tablet,Delayed Release (Dr/Ec) 81 mg PO DAILY Qty: 30 RF: 0 Discontinued furosemide 40 mg tablet 60 mg PO DAILY RF: 0 amlodipine 10 mg tablet 10 mg PO DAILY RF: 0 Discharge Orders: Discharge Order (Routine); Ordered 03/22/21 Ordered By: Candice Stanley/Other Patient Handouts: What Is Heart Failure, Heart Failure: Tracking Your Weight, Managing Type 2 Diabetes, Coping with Heart Failure, Heart Failure Diet Changes, Heart Failure Admission Data Admit Date/Time: 03/21/21 15:10 Attending Provider: Alicia Hendrickson Admit Provider: Luis Archer Primary Care Provider: Aboul-Hosn,Robert Other Providers: Luis Archer ; Christina Albert Other Interventions: Discharge Summary Assessment (RN) Last Done: 03/22/21 13:14 Supervising Physician Co-Signing Physician Notes PA Supervision Note: I personally saw and examined the patient. I verified all martinez points and agree with SAMM Hope with the following exceptions and/or additions: S-Pt feels much improved, no SOB or CP. Leg edema still present but improved from previous O- Vitals reviewed Gen: [AAOx3, NAD] HEENT: [anicteric sclerae, EOMI] CV: [RRR 3/6 PRABHAKAR at RUSB nl S1S2] Pulm: [CTAB no wcr] Abd: [+BS soft NT ND no masses or hernias] Ext: [2-3+ pitting edema to thighs bilat LEs] Skin: [no rashes, warm/dry] Neuro: [full strength throughout] A/P-85 yo male with severe , CAD, PPM, here with acute on chronic diastolic CHF DIuresed, improved, stable for discharge with close f/u with CHF clinic and has upcoming TAVR planned at [facility] Coding Level of Care Code D/C DAY MANAGEMENT >30 MINS Diagnoses CHF (congestive heart failure) I50.9 Heart failure chronicity: unspecified Heart failure type: unspecified Elevated troponin R77.8 Breath shortness R06.02 Urinary retention R33.9 Pulmonary edema J81.1 Mitral regurgitation I34.0 Aortic stenosis I35.0 Cardiac valve disease etiology: etiology unspecified Lower extremity edema R60.0 Hypertension I10 Anemia D64.9 Anemia type: unspecified type CAD (coronary atherosclerotic disease) I25.810 Associated angina: unspecified whether angina present Coronary Disease-Associated Artery/Lesion type: bypass graft [place] vs. transplanted heart: [place] heart CKD (chronic kidney disease) stage 3, GFR 30-59 ml/min N18.30
[2021-03-22] MEDS: ENOXAPARIN INJ 30 MG/0.3 ML SYR SQ SCH (14:09)
[2021-04-04] MEDS ORDERED: NOREPINEPHRINE/D5W 8 MG/508 ML IV ONE (21:41)
== END 2021-03-22 15:10 | disposition home or self-care (01) ==
LOC: ED 06:20 → EDINP 09:17 → INTOOBSV 09:17 → SUATTDRO 09:17 → EDINP 12:30 → 1E 03-21 18:21 → 2N 03-21 22:17

== ENCOUNTER 2021-10-01 03:51 | Observation (INO) ==
--- NOTE | 2021-10-01 04:47 | Emergency Department Note ---
History of Present Illness General Chief complaint: Altered Mental Status Stated complaint: Altered Mental Status Time Seen by Provider: 10/01/21 04:03 Source: patient, family and EMS Mode of arrival: EMS Limitations: altered mental status History of Present Illness Provider complaint: Weakness, confusion Onset (ago): unknown This is an 86-year-old male brought in by EMS due to family concern for weakness and confusion. Patient lives with his and a son at home. EMS reports patient does have a history of atrial fibrillation as well as a pacemaker. They state patient was oriented to himself but confused to date, time, and place. They state patient does take Coumadin. They deny any recent trauma. Patient on arrival here cannot tell me why he was brought in. He states he does have a history of heart problems and had bypass surgery. He states he does have chronic lower extremity edema. Patient does note that he takes heart medication including a blood thinner. Upon arrival of son to bedside, he states he and his went to check on their parents and help with her brother earlier today. They state on arrival their father was seated outside in the car. He had a fall approximately a month ago resulting in a right shoulder injury so he has not been driving. He did recently start physical therapy for this. They state they checked on him in the jeep and he said he felt fine so they went into help out with his . They came out and the patient was still in the jeep eating [employer]. They state he seemed confused to events and cannot otherwise provide an adequate explanation as to why he was there. No other recent medication changes. They states outpatient checks of INR recently have been well. Patient has had both prior CABG as well as prior valve replacement. Pt seen during a time of high acuity and national emergency pandemic while wearing PPE. Home Medications Medication Instructions Recorded Confirmed Type finasteride 5 mg tablet 5 mg PO DAILY 01/17/21 10/01/21 History glipizide 10 mg tablet 20 mg PO BID 01/17/21 10/01/21 History metoprolol succinate 50 mg 50 mg PO DAILY 01/17/21 10/01/21 History tablet,extended release 24 hr simvastatin 20 mg tablet 20 mg PO HS 01/17/21 10/01/21 History tamsulosin 0.4 mg capsule 0.4 mg PO DAILY 01/17/21 10/01/21 History cyanocobalamin (vitamin B-12) 5,000 mcg PO DAILY #30 caps 03/22/21 10/01/21 Rx 5,000 mcg capsule furosemide 40 mg tablet 40 mg PO BID #60 tabs 03/22/21 10/01/21 Rx amoxicillin 500 mg tablet 2,000 mg PO ONCE #20 tabs 07/24/21 10/01/21 Rx amlodipine 2.5 mg tablet 5 mg PO DAILY 08/28/21 10/01/21 History warfarin 5 mg tablet 5 mg PO DAILY #100 tabs 09/25/21 10/01/21 Rx triamcinolone acetonide 0.1 % 1 applic topical BID Right Leg 10/01/21 10/01/21 History topical ointment Wound Allergies Allergy/AdvReac Type Severity Reaction Status Date / Time No Known Allergies Allergy Mild NONE Verified 08/28/21 08:38 Past Med/Surg History Medical History (Updated 10/03/21 @ 04:28 by Erica Hidalgo DO) Anticoagulant long-term use BPH w urinary obs/LUTS Chronic heart failure with preserved ejection fraction Colon cancer Coronary artery disease Diabetes Hypercholesterolemia Hypertension Lower extremity edema Paroxysmal atrial fibrillation Subdural hematoma Surgical History (Updated 10/02/21 @ 17:40 by Scooter Crowley MD) History of heart bypass surgery History of partial colectomy S/P TAVR (transcatheter aortic valve replacement) Status post evacuation of subdural hematoma Family History (Updated 10/01/21 @ 19:42 by Alicia Hendrickson MD) Other Family history non-contributory Social History Smoking Status: Former smoker Tobacco Type: Cigarettes Second Hand Exposure: No; Do You Dip or Chew Tobacco: No; Tobacco Cessation Education Requested by Patient: No Hx Alcohol Use: No Hx Substance Use: No Preferred Language: Arabic Communication Ability: Effective Curing Supervisor Required: No Beliefs That Will Affect Care: None marital status: Current Living Situation: Family Current Living Situation Comment: and Te current occupational status: employed and retired How many Children do You have: 3 Other Information That Helps Us Care for You: No Feels Safe at Home: Yes Safety Concerns: Feels Safe At This Time Assistive Devices: Glasses Review of Systems A total of 10 systems reviewed and were otherwise negative All systems reviewed & are unremarkable except as noted in HPI & below Physical Exam Vital Signs Vital Signs - 24 hr 10/02/21 08:24 10/02/21 08:00 10/02/21 11:38 Temperature 36.6 C 36.5 C Temperature Source Oral Oral Pulse Rate [Finger] 81 77 Respiratory Rate 20 20 Respiratory Effort / Characteristics Non-Labored Respiratory Depth Normal Respiratory Pattern Regular Blood Pressure [Left Arm] 133/64 118/67 Blood Pressure Mean [Left Arm] 87 84 Pulse Oximetry 94 96 Oxygen Delivery Method Nasal Cannula GENERAL: alert, well appearing, well nourished, no distress, non-toxic EYE EXAM: normal conjunctiva, PERRL and EOM's grossly intact OROPHARYNX: no exudate, no erythema, lips, buccal mucosa, and tongue normal and mucous membranes are moist NECK: supple, no nuchal rigidity, no adenopathy, non-tender LUNGS: Clear to auscultation. Normal chest wall mechanics, no w/r/r HEART: no murmurs, S1 normal and S2 normal, pacemaker noted left anterior superior chest wall, well-healed midline sternotomy scar ABDOMEN: abdomen soft, non-tender, normo-active bowel sounds, no masses, no rebound or guarding. BACK: Back is symmetrical on inspection and there is no deformity, no midline tenderness, no CVA tenderness. SKIN: no rashes and no bruising UPPER EXTREMITIES: upper extremities are grossly normal. FROM, nml pulses b/l. LOWER EXTREMITIES: 3+ b/l R>L pitting edema. FROM, nml pulses b/l. NEURO EXAM: Confused to chronology of events, knows name and birthday, confused to place, cranial nerves II-XII grossly intact, normal speech, no gross weakness of arms, no gross weakness of legs. Gross sensation intact. Course Administered Medications Amlodipine Besylate (Amlodipine Besylate 5 Mg Tab) 5 mg PO DAILY [facility] Stop: 10/31/21 12:59 Last Admin: 10/02/21 07:14 Dose: 5 mg Documented By: Admin: 10/01/21 16:05 Dose: Not Given Documented By: JEFF Finasteride (Finasteride 5 Mg Tab) 5 mg PO DAILY [facility] Stop: 11/01/21 08:59 Last Admin: 10/02/21 07:14 Dose: 5 mg Documented By: JEFF Pantoprazole Sodium 40 mg/ (Syringe) 10 mls @ 5 mls/min IV BID GEETA Stop: 10/31/21 20:59 Last Admin: 10/02/21 21:41 Dose: 5 mls/min Documented By: Admin: 10/02/21 07:14 Dose: 5 mls/min Documented By: Admin: 10/01/21 21:59 Dose: 5 mls/min Documented By: BARBARA Insulin Aspart (Insulin Aspart Per Unit) 0 units SC ACHS GEETA Stop: 10/31/21 12:59 Last Admin: 10/02/21 21:38 Dose: 4 units Documented By: JULIA Co-signed By: SURY Admin: 10/02/21 17:21 Dose: 7 units Documented By: [id number] Co-signed By: PEDRO Admin: 10/02/21 12:17 Dose: 3 units Documented By: JEFF Co-signed By: ANDREW Admin: 10/02/21 08:23 Dose: 3 units Documented By: JEFF Co-signed By: YVONNE Admin: 10/01/21 21:59 Dose: 4 units Documented By: BARBARA Co-signed By: SKYLER Admin: 10/01/21 17:21 Dose: 7 units Documented By: JEFF Co-signed By: PEDRO Admin: 10/01/21 16:06 Dose: Not Given Documented By: JEFF Co-signed By: BETZAIDA Insulin Glargine (Lantus Per Unit Charge) 5 units SQ HS GEETA Stop: 11/01/21 20:59 Last Admin: 10/02/21 21:38 Dose: 5 units Documented By: JULIA Co-signed By: SURY Metoprolol Succinate (Metoprolol Succ 50mg Ext Rel Tab) 50 mg PO DAILY GEETA Stop: 11/01/21 08:59 Last Admin: 10/02/21 07:14 Dose: 50 mg Documented By: JEFF Simvastatin (Simvastatin 20 Mg Tab) 20 mg PO HS [facility] Stop: 10/31/21 20:59 Last Admin: 10/02/21 21:41 Dose: 20 mg Documented By: Admin: 10/01/21 22:00 Dose: 20 mg Documented By: BARBARA Triamcinolone Acetonide (Triamcinolone Acet 0.1% Oint 15 Gm Tube) 1 appln TOP BID GEETA Stop: 10/31/21 20:59 Last Admin: 10/02/21 23:59 Dose: Not Given Documented By: Admin: 10/02/21 07:14 Dose: Not Given Documented By: Admin: 10/01/21 22:04 Dose: Not Given Documented By: BARBARA Discontinued Medications Furosemide (Furosemide Inj 20 Mg/2 Ml Vial) 20 mg IV ONE ONE Stop: 10/01/21 10:12 Last Admin: 10/01/21 11:21 Dose: Not Given Documented By: JESSICA Furosemide (Furosemide 40 Mg/4 Ml Vial) Confirm Administered Dose 40 mg IV .STK- MED ONE Stop: 10/01/21 10:16 Last Admin: 10/01/21 10:18 Dose: 20 mg Documented By: JESSICA Furosemide (Furosemide Inj 20 Mg/2 Ml Vial) 20 mg IV ONE ONE Stop: 10/01/21 21:01 Last Admin: 10/02/21 01:01 Dose: 20 mg Documented By: BARBARA Furosemide (Furosemide Inj 20 Mg/2 Ml Vial) 20 mg IV ONE ONE Stop: 10/02/21 02:36 Last Admin: 10/02/21 02:59 Dose: 20 mg Documented By: BARBARA Furosemide (Furosemide 40 Mg/4 Ml Vial) 40 mg IV ONE ONE Stop: 10/02/21 07:46 Last Admin: 10/02/21 08:23 Dose: 40 mg Documented By: JEFF Magnesium Sulfate/Dextrose (Magnesium Sulfate / D5w) 1 gm in 100 mls @ 100 mls/hr IV NOW STA Stop: 10/01/21 06:13 Last Infusion: 10/01/21 06:52 Dose: 0 mls/hr Documented By: Admin: 10/01/21 05:58 Dose: 100 mls/hr Documented By: MARYA Magnesium Sulfate/Dextrose (Magnesium Sulfate / D5w) 1 gm in 100 mls @ 50 mls/hr IV Q2H GEETA Stop: 10/01/21 13:44 Last Infusion: 10/01/21 11:00 Dose: 0 mls/hr Documented By: Admin: 10/01/21 10:18 Dose: 50 mls/hr Documented By: Infusion: 10/01/21 10:17 Dose: 0 mls/hr Documented By: Admin: 10/01/21 09:49 Dose: 50 mls/hr Documented By: JESSICA Pantoprazole Sodium 40 mg/ (Syringe) 10 mls @ 5 mls/min IV NOW ONE Stop: 10/01/21 10:21 Last Admin: 10/01/21 11:25 Dose: 5 mls/min Documented By: JESSICA Calcium Gluconate 1,000 mg/ (Dextrose) 60 mls @ 240 mls/hr IV 0800 ONE Stop: 10/02/21 08:14 Last Infusion: 10/02/21 08:41 Dose: 0 mls/hr Documented By: Admin: 10/02/21 08:23 Dose: 240 mls/hr Documented By: JEFF Calcium Gluconate 1,000 mg/ (Dextrose) 60 mls @ 240 mls/hr IV NOW ONE Stop: 10/02/21 13:29 Last Infusion: 10/02/21 14:23 Dose: 0 mls/hr Documented By: Admin: 10/02/21 13:56 Dose: 240 mls/hr Documented By: JEFF Levalbuterol HCl (Levalbuterol Hcl 0.63 Mg/3 Ml Neb) 0.63 mg NEB NOW STA; Protocol Stop: 10/02/21 01:18 Last Admin: 10/02/21 01:55 Dose: 0.63 mg Documented By: JESSIE Metoprolol Succinate (Metoprolol Succ 50mg Ext Rel Tab) 50 mg PO NOW STA Stop: 10/01/21 11:17 Last Admin: 10/01/21 12:50 Dose: 50 mg Documented By: LISSETH Medical Decision Making Differential Diagnosis Differential Diagnosis includes but is not limited to dehydration, stroke, anemia, hypoglycemia, hyponatremia, hypernatremia, urinary tract infection, pneumonia, bronchitis, sepsis, gastroenteritis, additional abdominal pathology, metabolic abnormalities and infections. Medical Records Attestation: I reviewed the patient's medical records. Home Medications Current Medication List: was personally reviewed by me Laboratory Data Attestation: I reviewed the patient's lab results. Result diagrams: 10/02/21 01:35 10/02/21 07:20 Lab Results 10/01/21 10/01/21 10/01/21 Range/Units 03:35 03:35 03:35 WBC 7.13 (4.8-10.8) K/ul RBC 2.69 L (4.63-6.08) M/uL Hgb 7.6 L (14.0-18.0) g/dl Hct 23.6 L (40.1-51.0) % MCV 87.7 (80.0-100.0) fL MCH 28.3 (25.0-34.0) pg MCHC 32.2 (32.0-36.0) g/dL RDW Std Deviation 51.6 H (36.4-46.3) fL RDW Coeff of Jose A 16.3 H (11.5-14.5) % Plt Count 98 L (130-400) K/uL MPV 10.7 (9.4-12.4) fL Immature Gran % (Auto) 0.6 % Neut % (Auto) 87.4 % Lymph % (Auto) 6.3 % [place] % (Auto) 5.3 % Eos % (Auto) 0.3 % Baso % (Auto) 0.1 % Neut # (Auto) 6.23 (1.4-6.5) K/uL Lymph # (Auto) 0.45 L (1.2-3.4) K/uL [place] # (Auto) 0.38 (0.24-0.82) K/uL Eos # (Auto) 0.02 (0-0.50) K/uL Baso # (Auto) 0.01 (0-0.2) K/uL Immature Gran # (Auto) 0.04 H (0.00-0.02) K/uL Absolute Nucleated RBC Nucleated RBC % (auto) Neutrophils % (Manual) Band Neutrophils % Lymphocytes % (Manual) Prolymphocyte % Reactive Lymphs % (Man) Monocytes % (Manual) Eosinophils % (Manual) Basophils % (Manual) Metamyelocytes % (Man) Myelocytes % (Man) Promyelocytes % (Man) Blast Cells % (Manual) Plasma Cell % (Manual) Other Cells % Nucleated RBC % Neutrophils # (Manual) Band Neutrophils # Total Absolute Neuts Lymphocytes # (Manual) Prolymphocyte # Reactive Lymphs # Total Abs Lymphocytes Monocytes # (Manual) Eosinophils # (Manual) Basophils # (Manual) Metamyelocytes # (Man) Myelocytes # (Manual) Promyelocytes # (Man) Blast Cells # (Man) Plasma Cell # (Manual) Other Cells # Nucleated RBCs # (Man) Hypersegmented Neuts Hyposegmented Neuts Hypogranular Neuts Large Granular Lymphs # Lrg Granular Lymphs Hairy Cells Smudge Cells Toxic Granulation Toxic Vacuolation Dohle Bodies Yamila Rods Platelet Estimate Decreased L (Normal) Hypogranular Platelets Clumped Platelets Giant Platelets Platelet Satelliting RBC Morphology Unremarkable Polychromasia Hypochromasia Poikilocytosis Basophilic Stippling Anisocytosis Microcytosis Macrocytosis Spherocytes Pappenheimer Bodies Sickle Cells Target Cells Tear Drop Cells Ovalocytes Stomatocytes Parnell-Sage Bodies Echinocytes Acanthocytes (Spur) Rouleaux RBC Agglutinates Schistocytes Peripher Smr Path Cons Sezary Cell PT (9.0-12.0) Seconds INR (0.9-1.1) VBG pH (7.36-7.41) VBG pCO2 (38-50) mmHg VBG pO2 mmHg VBG HCO3 mmol/L VBG O2 Saturation % VBG Base Excess mEq/L Sodium 130 L (136-145) mmol/L Potassium 3.5 (3.5-5.1) mmol/L Chloride 96 L (98-107) mmol/L Carbon Dioxide 23 (21-32) mmol/L Anion Gap 11 (3-11) BUN 20 (6-23) mg/dl Creatinine 1.60 H (0.6-1.4) mg/dl Est Cr Clr Drug Dosing 34.0 ml/min Est GFR ( Amer) 44.6 ml/min Est GFR (Non-Af Amer) 38.4 ml/min BUN/Creatinine Ratio 12.5 (10-20) Glucose 164 H (70-99(Fasting)) mg/dl POC Glucose (70-99) mg/dl Estimat Average Glucose mg/dl Hemoglobin A1c (4.5-5.6) % Calcium 8.0 L (8.5-10.1) mg/dl Ionized Calcium (1.12-1.32) mmol/L Phosphorus (2.5-4.9) mg/dl Magnesium 1.6 L (1.7-2.4) mg/dl Total Bilirubin 1.3 H (0.2-1.0) mg/dl AST 9 L (13-39) U/L ALT 6 L (7-52) U/L Alkaline Phosphatase 95 (34-104) U/L Troponin I High Sens 28.7 H (0-20) pg/ml B-Natriuretic Peptide 392 H (0-100) pg/ml Total Protein 7.3 (6.0-8.3) gm/dl Albumin 3.3 L (3.4-5.0) gm/dl Globulin 4.0 (2.5-4.0) gm/dl Albumin/Globulin Ratio 0.8 L (0.9-2) Lipase 15 (11-82) U/L Procalcitonin (0-0.5) ng/ml TSH (0.300-4.500) uIu/ml Urine Color Urine Appearance (Clear) Urine pH (4.5-7.5) Ur Specific [place] (1.000-1.030) Urine Protein (Negative) Urine Glucose (UA) (Negative) Urine Ketones (Negative) Urine Blood (Negative) Urine Nitrite (Negative) Urine Bilirubin (Negative) Urine Urobilinogen (Negative) Ur Leukocyte Esterase (Negative) Urine WBC (Auto) (0-5) /hpf Urine RBC (Auto) (0-4) /hpf U Hyaline Cast (Auto) (0-5) /lpf U Epithel Cells (Auto) (0-5) /lpf Urine Bacteria (Auto) (Negative) Ur Renal Epithelial Cell SARS-CoV-2, RNA, NAAT (NEGATIVE) Blood Parasites ID Blood Type Blood Type Recheck Antibody Screen Crossmatch Transfusion React Date Transfusion React Time Tx React Symptoms Reaction Clerical Check Lab Clerical Err Check React Component Return Volume Returned Pre-Trans Blood Type Pre-Trans Vis Hemolysis Pre-Trans EVANS (Negative) Pre-Trans EVANS IgG (Negative) Pre-Trans EVANS Poly (Negative) Pre-Trans EVANS C3b, C3d (Negative) Post-Trans Blood Type Post-Tx Visible Hemolys Post-Trans EVANS (Negatuve) Post-Trans EVANS IgG (Negative) Post-Trans EVANS Poly (Negative) Post-Trans EVANS C3b, C3d (Negative) Post-Trans Ur Hemoglobin Reaction Path Interpret Transfusion Serv Com 10/01/21 10/01/21 10/01/21 Range/Units 03:35 04:55 06:02 WBC (4.8-10.8) K/ul RBC (4.63-6.08) M/uL Hgb (14.0-18.0) g/dl Hct (40.1-51.0) % MCV (80.0-100.0) fL MCH (25.0-34.0) pg MCHC (32.0-36.0) g/dL RDW Std Deviation (36.4-46.3) fL RDW Coeff of Jose A (11.5-14.5) % Plt Count (130-400) K/uL MPV (9.4-12.4) fL Immature Gran % (Auto) % Neut % (Auto) % Lymph % (Auto) % [place] % (Auto) % Eos % (Auto) % Baso % (Auto) % Neut # (Auto) (1.4-6.5) K/uL Lymph # (Auto) (1.2-3.4) K/uL [place] # (Auto) (0.24-0.82) K/uL Eos # (Auto) (0-0.50) K/uL Baso # (Auto) (0-0.2) K/uL Immature Gran # (Auto) (0.00-0.02) K/uL Absolute Nucleated RBC Nucleated RBC % (auto) Neutrophils % (Manual) Band Neutrophils % Lymphocytes % (Manual) Prolymphocyte % Reactive Lymphs % (Man) Monocytes % (Manual) Eosinophils % (Manual) Basophils % (Manual) Metamyelocytes % (Man) Myelocytes % (Man) Promyelocytes % (Man) Blast Cells % (Manual) Plasma Cell % (Manual) Other Cells % Nucleated RBC % Neutrophils # (Manual) Band Neutrophils # Total Absolute Neuts Lymphocytes # (Manual) Prolymphocyte # Reactive Lymphs # Total Abs Lymphocytes Monocytes # (Manual) Eosinophils # (Manual) Basophils # (Manual) Metamyelocytes # (Man) Myelocytes # (Manual) Promyelocytes # (Man) Blast Cells # (Man) Plasma Cell # (Manual) Other Cells # Nucleated RBCs # (Man) Hypersegmented Neuts Hyposegmented Neuts Hypogranular Neuts Large Granular Lymphs # Lrg Granular Lymphs Hairy Cells Smudge Cells Toxic Granulation Toxic Vacuolation Dohle Bodies Yamila Rods Platelet Estimate (Normal) Hypogranular Platelets Clumped Platelets Giant Platelets Platelet Satelliting RBC Morphology Polychromasia Hypochromasia Poikilocytosis Basophilic Stippling Anisocytosis Microcytosis Macrocytosis Spherocytes Pappenheimer Bodies Sickle Cells Target Cells Tear Drop Cells Ovalocytes Stomatocytes Parnell-Sage Bodies Echinocytes Acanthocytes (Spur) Rouleaux RBC Agglutinates Schistocytes Peripher Smr Path Cons Sezary Cell PT 25.6 H (9.0-12.0) Seconds INR 2.5 H (0.9-1.1) VBG pH (7.36-7.41) VBG pCO2 (38-50) mmHg VBG pO2 mmHg VBG HCO3 mmol/L VBG O2 Saturation % VBG Base Excess mEq/L Sodium (136-145) mmol/L Potassium (3.5-5.1) mmol/L Chloride (98-107) mmol/L Carbon Dioxide (21-32) mmol/L Anion Gap (3-11) BUN (6-23) mg/dl Creatinine (0.6-1.4) mg/dl Est Cr Clr Drug Dosing ml/min Est GFR ( Amer) ml/min Est GFR (Non-Af Amer) ml/min BUN/Creatinine Ratio (10-20) Glucose (70-99(Fasting)) mg/dl POC Glucose (70-99) mg/dl Estimat Average Glucose mg/dl Hemoglobin A1c (4.5-5.6) % Calcium (8.5-10.1) mg/dl Ionized Calcium (1.12-1.32) mmol/L Phosphorus (2.5-4.9) mg/dl Magnesium (1.7-2.4) mg/dl Total Bilirubin (0.2-1.0) mg/dl AST (13-39) U/L ALT (7-52) U/L Alkaline Phosphatase (34-104) U/L Troponin I High Sens (0-20) pg/ml B-Natriuretic Peptide (0-100) pg/ml Total Protein (6.0-8.3) gm/dl Albumin (3.4-5.0) gm/dl Globulin (2.5-4.0) gm/dl Albumin/Globulin Ratio (0.9-2) Lipase (11-82) U/L Procalcitonin (0-0.5) ng/ml TSH 1.680 (0.300-4.500) uIu/ml Urine Color Yellow Urine Appearance Clear (Clear) Urine pH 6.0 (4.5-7.5) Ur Specific [place] 1.007 (1.000-1.030) Urine Protein 1+ H (Negative) Urine Glucose (UA) Negative (Negative) Urine Ketones Negative (Negative) Urine Blood Trace H (Negative) Urine Nitrite Negative (Negative) Urine Bilirubin Negative (Negative) Urine Urobilinogen Negative (Negative) Ur Leukocyte Esterase Negative (Negative) Urine WBC (Auto) 1-5 (0-5) /hpf Urine RBC (Auto) 0-4 (0-4) /hpf U Hyaline Cast (Auto) 1-5 (0-5) /lpf U Epithel Cells (Auto) >30 H (0-5) /lpf Urine Bacteria (Auto) Negative (Negative) Ur Renal Epithelial Cell Not Reportable SARS-CoV-2, RNA, NAAT (NEGATIVE) Blood Parasites ID Blood Type Blood Type Recheck Antibody Screen Crossmatch Transfusion React Date Transfusion React Time Tx React Symptoms Reaction Clerical Check Lab Clerical Err Check React Component Return Volume Returned Pre-Trans Blood Type Pre-Trans Vis Hemolysis Pre-Trans EVNAS (Negative) Pre-Trans EVANS IgG (Negative) Pre-Trans EVANS Poly (Negative) Pre-Trans EVANS C3b, C3d (Negative) Post-Trans Blood Type Post-Tx Visible Hemolys Post-Trans EVANS (Negatuve) Post-Trans EVANS IgG (Negative) Post-Trans EVANS Poly (Negative) Post-Trans EVANS C3b, C3d (Negative) Post-Trans Ur Hemoglobin Reaction Path Interpret Transfusion Serv Com 10/01/21 10/01/21 10/01/21 Range/Units 06:51 10:14 10:14 WBC (4.8-10.8) K/ul RBC (4.63-6.08) M/uL Hgb (14.0-18.0) g/dl Hct (40.1-51.0) % MCV (80.0-100.0) fL MCH (25.0-34.0) pg MCHC (32.0-36.0) g/dL RDW Std Deviation (36.4-46.3) fL RDW Coeff of Jose A (11.5-14.5) % Plt Count (130-400) K/uL MPV (9.4-12.4) fL Immature Gran % (Auto) % Neut % (Auto) % Lymph % (Auto) % [place] % (Auto) % Eos % (Auto) % Baso % (Auto) % Neut # (Auto) (1.4-6.5) K/uL Lymph # (Auto) (1.2-3.4) K/uL [place] # (Auto) (0.24-0.82) K/uL Eos # (Auto) (0-0.50) K/uL Baso # (Auto) (0-0.2) K/uL Immature Gran # (Auto) (0.00-0.02) K/uL Absolute Nucleated RBC Nucleated RBC % (auto) Neutrophils % (Manual) Band Neutrophils % Lymphocytes % (Manual) Prolymphocyte % Reactive Lymphs % (Man) Monocytes % (Manual) Eosinophils % (Manual) Basophils % (Manual) Metamyelocytes % (Man) Myelocytes % (Man) Promyelocytes % (Man) Blast Cells % (Manual) Plasma Cell % (Manual) Other Cells % Nucleated RBC % Neutrophils # (Manual) Band Neutrophils # Total Absolute Neuts Lymphocytes # (Manual) Prolymphocyte # Reactive Lymphs # Total Abs Lymphocytes Monocytes # (Manual) Eosinophils # (Manual) Basophils # (Manual) Metamyelocytes # (Man) Myelocytes # (Manual) Promyelocytes # (Man) Blast Cells # (Man) Plasma Cell # (Manual) Other Cells # Nucleated RBCs # (Man) Hypersegmented Neuts Hyposegmented Neuts Hypogranular Neuts Large Granular Lymphs # Lrg Granular Lymphs Hairy Cells Smudge Cells Toxic Granulation Toxic Vacuolation Dohle Bodies Yamila Rods Platelet Estimate (Normal) Hypogranular Platelets Clumped Platelets Giant Platelets Platelet Satelliting RBC Morphology Polychromasia Hypochromasia Poikilocytosis Basophilic Stippling Anisocytosis Microcytosis Macrocytosis Spherocytes Pappenheimer Bodies Sickle Cells Target Cells Tear Drop Cells Ovalocytes Stomatocytes Parnell-Sage Bodies Echinocytes Acanthocytes (Spur) Rouleaux RBC Agglutinates Schistocytes Peripher Smr Path Cons Sezary Cell PT (9.0-12.0) Seconds INR (0.9-1.1) VBG pH (7.36-7.41) VBG pCO2 (38-50) mmHg VBG pO2 mmHg VBG HCO3 mmol/L VBG O2 Saturation % VBG Base Excess mEq/L Sodium (136-145) mmol/L Potassium (3.5-5.1) mmol/L Chloride (98-107) mmol/L Carbon Dioxide (21-32) mmol/L Anion Gap (3-11) BUN (6-23) mg/dl Creatinine (0.6-1.4) mg/dl Est Cr Clr Drug Dosing ml/min Est GFR ( Amer) ml/min Est GFR (Non-Af Amer) ml/min BUN/Creatinine Ratio (10-20) Glucose (70-99(Fasting)) mg/dl POC Glucose (70-99) mg/dl Estimat Average Glucose mg/dl Hemoglobin A1c (4.5-5.6) % Calcium (8.5-10.1) mg/dl Ionized Calcium 1.15 (1.12-1.32) mmol/L Phosphorus (2.5-4.9) mg/dl Magnesium (1.7-2.4) mg/dl Total Bilirubin (0.2-1.0) mg/dl AST (13-39) U/L ALT (7-52) U/L Alkaline Phosphatase (34-104) U/L Troponin I High Sens (0-20) pg/ml B-Natriuretic Peptide (0-100) pg/ml Total Protein (6.0-8.3) gm/dl Albumin (3.4-5.0) gm/dl Globulin (2.5-4.0) gm/dl Albumin/Globulin Ratio (0.9-2) Lipase (11-82) U/L Procalcitonin (0-0.5) ng/ml TSH (0.300-4.500) uIu/ml Urine Color Urine Appearance (Clear) Urine pH (4.5-7.5) Ur Specific [place] (1.000-1.030) Urine Protein (Negative) Urine Glucose (UA) (Negative) Urine Ketones (Negative) Urine Blood (Negative) Urine Nitrite (Negative) Urine Bilirubin (Negative) Urine Urobilinogen (Negative) Ur Leukocyte Esterase (Negative) Urine WBC (Auto) (0-5) /hpf Urine RBC (Auto) (0-4) /hpf U Hyaline Cast (Auto) (0-5) /lpf U Epithel Cells (Auto) (0-5) /lpf Urine Bacteria (Auto) (Negative) Ur Renal Epithelial Cell SARS-CoV-2, RNA, NAAT NEGATIVE (NEGATIVE) Blood Parasites ID Blood Type B Positive Blood Type Recheck Antibody Screen NEGATIVE Crossmatch See Detail Transfusion React Date Transfusion React Time Tx React Symptoms Reaction Clerical Check Lab Clerical Err Check React Component Return Volume Returned Pre-Trans Blood Type Pre-Trans Vis Hemolysis Pre-Trans EVANS (Negative) Pre-Trans EVANS IgG (Negative) Pre-Trans EVANS Poly (Negative) Pre-Trans EVANS C3b, C3d (Negative) Post-Trans Blood Type Post-Tx Visible Hemolys Post-Trans EVANS (Negatuve) Post-Trans EVANS IgG (Negative) Post-Trans EVANS Poly (Negative) Post-Trans EVANS C3b, C3d (Negative) Post-Trans Ur Hemoglobin Reaction Path Interpret Transfusion Serv Com 10/01/21 10/01/21 10/01/21 Range/Units 13:41 16:30 16:48 WBC (4.8-10.8) K/ul RBC (4.63-6.08) M/uL Hgb 6.9 L* (14.0-18.0) g/dl Hct (40.1-51.0) % MCV (80.0-100.0) fL MCH (25.0-34.0) pg MCHC (32.0-36.0) g/dL RDW Std Deviation (36.4-46.3) fL RDW Coeff of Jose A (11.5-14.5) % Plt Count (130-400) K/uL MPV (9.4-12.4) fL Immature Gran % (Auto) % Neut % (Auto) % Lymph % (Auto) % [place] % (Auto) % Eos % (Auto) % Baso % (Auto) % Neut # (Auto) (1.4-6.5) K/uL Lymph # (Auto) (1.2-3.4) K/uL [place] # (Auto) (0.24-0.82) K/uL Eos # (Auto) (0-0.50) K/uL Baso # (Auto) (0-0.2) K/uL Immature Gran # (Auto) (0.00-0.02) K/uL Absolute Nucleated RBC Nucleated RBC % (auto) Neutrophils % (Manual) Band Neutrophils % Lymphocytes % (Manual) Prolymphocyte % Reactive Lymphs % (Man) Monocytes % (Manual) Eosinophils % (Manual) Basophils % (Manual) Metamyelocytes % (Man) Myelocytes % (Man) Promyelocytes % (Man) Blast Cells % (Manual) Plasma Cell % (Manual) Other Cells % Nucleated RBC % Neutrophils # (Manual) Band Neutrophils # Total Absolute Neuts Lymphocytes # (Manual) Prolymphocyte # Reactive Lymphs # Total Abs Lymphocytes Monocytes # (Manual) Eosinophils # (Manual) Basophils # (Manual) Metamyelocytes # (Man) Myelocytes # (Manual) Promyelocytes # (Man) Blast Cells # (Man) Plasma Cell # (Manual) Other Cells # Nucleated RBCs # (Man) Hypersegmented Neuts Hyposegmented Neuts Hypogranular Neuts Large Granular Lymphs # Lrg Granular Lymphs Hairy Cells Smudge Cells Toxic Granulation Toxic Vacuolation Dohle Bodies Yamila Rods Platelet Estimate (Normal) Hypogranular Platelets Clumped Platelets Giant Platelets Platelet Satelliting RBC Morphology Polychromasia Hypochromasia Poikilocytosis Basophilic Stippling Anisocytosis Microcytosis Macrocytosis Spherocytes Pappenheimer Bodies Sickle Cells Target Cells Tear Drop Cells Ovalocytes Stomatocytes Parnell-Sage Bodies Echinocytes Acanthocytes (Spur) Rouleaux RBC Agglutinates Schistocytes Peripher Smr Path Cons Sezary Cell PT (9.0-12.0) Seconds INR (0.9-1.1) VBG pH (7.36-7.41) VBG pCO2 (38-50) mmHg VBG pO2 mmHg VBG HCO3 mmol/L VBG O2 Saturation % VBG Base Excess mEq/L Sodium (136-145) mmol/L Potassium (3.5-5.1) mmol/L Chloride (98-107) mmol/L Carbon Dioxide (21-32) mmol/L Anion Gap (3-11) BUN (6-23) mg/dl Creatinine (0.6-1.4) mg/dl Est Cr Clr Drug Dosing ml/min Est GFR ( Amer) ml/min Est GFR (Non-Af Amer) ml/min BUN/Creatinine Ratio (10-20) Glucose (70-99(Fasting)) mg/dl POC Glucose 246 H (70-99) mg/dl Estimat Average Glucose mg/dl Hemoglobin A1c (4.5-5.6) % Calcium (8.5-10.1) mg/dl Ionized Calcium (1.12-1.32) mmol/L Phosphorus (2.5-4.9) mg/dl Magnesium (1.7-2.4) mg/dl Total Bilirubin (0.2-1.0) mg/dl AST (13-39) U/L ALT (7-52) U/L Alkaline Phosphatase (34-104) U/L Troponin I High Sens 35.7 H (0-20) pg/ml B-Natriuretic Peptide (0-100) pg/ml Total Protein (6.0-8.3) gm/dl Albumin (3.4-5.0) gm/dl Globulin (2.5-4.0) gm/dl Albumin/Globulin Ratio (0.9-2) Lipase (11-82) U/L Procalcitonin (0-0.5) ng/ml TSH (0.300-4.500) uIu/ml Urine Color Urine Appearance (Clear) Urine pH (4.5-7.5) Ur Specific [place] (1.000-1.030) Urine Protein (Negative) Urine Glucose (UA) (Negative) Urine Ketones (Negative) Urine Blood (Negative) Urine Nitrite (Negative) Urine Bilirubin (Negative) Urine Urobilinogen (Negative) Ur Leukocyte Esterase (Negative) Urine WBC (Auto) (0-5) /hpf Urine RBC (Auto) (0-4) /hpf U Hyaline Cast (Auto) (0-5) /lpf U Epithel Cells (Auto) (0-5) /lpf Urine Bacteria (Auto) (Negative) Ur Renal Epithelial Cell SARS-CoV-2, RNA, NAAT (NEGATIVE) Blood Parasites ID Blood Type Blood Type Recheck Antibody Screen Crossmatch Transfusion React Date Transfusion React Time Tx React Symptoms Reaction Clerical Check Lab Clerical Err Check React Component Return Volume Returned Pre-Trans Blood Type Pre-Trans Vis Hemolysis Pre-Trans EVANS (Negative) Pre-Trans EVANS IgG (Negative) Pre-Trans EVANS Poly (Negative) Pre-Trans EVANS C3b, C3d (Negative) Post-Trans Blood Type Post-Tx Visible Hemolys Post-Trans EVANS (Negatuve) Post-Trans EVANS IgG (Negative) Post-Trans EVANS Poly (Negative) Post-Trans EVANS C3b, C3d (Negative) Post-Trans Ur Hemoglobin Reaction Path Interpret Transfusion Serv Com 10/01/21 10/01/21 10/01/21 Range/Units 16:48 18:36 20:27 WBC (4.8-10.8) K/ul RBC (4.63-6.08) M/uL Hgb (14.0-18.0) g/dl Hct (40.1-51.0) % MCV (80.0-100.0) fL MCH (25.0-34.0) pg MCHC (32.0-36.0) g/dL RDW Std Deviation (36.4-46.3) fL RDW Coeff of Jose A (11.5-14.5) % Plt Count (130-400) K/uL MPV (9.4-12.4) fL Immature Gran % (Auto) % Neut % (Auto) % Lymph % (Auto) % [place] % (Auto) % Eos % (Auto) % Baso % (Auto) % Neut # (Auto) (1.4-6.5) K/uL Lymph # (Auto) (1.2-3.4) K/uL [place] # (Auto) (0.24-0.82) K/uL Eos # (Auto) (0-0.50) K/uL Baso # (Auto) (0-0.2) K/uL Immature Gran # (Auto) (0.00-0.02) K/uL Absolute Nucleated RBC Nucleated RBC % (auto) Neutrophils % (Manual) Band Neutrophils % Lymphocytes % (Manual) Prolymphocyte % Reactive Lymphs % (Man) Monocytes % (Manual) Eosinophils % (Manual) Basophils % (Manual) Metamyelocytes % (Man) Myelocytes % (Man) Promyelocytes % (Man) Blast Cells % (Manual) Plasma Cell % (Manual) Other Cells % Nucleated RBC % Neutrophils # (Manual) Band Neutrophils # Total Absolute Neuts Lymphocytes # (Manual) Prolymphocyte # Reactive Lymphs # Total Abs Lymphocytes Monocytes # (Manual) Eosinophils # (Manual) Basophils # (Manual) Metamyelocytes # (Man) Myelocytes # (Manual) Promyelocytes # (Man) Blast Cells # (Man) Plasma Cell # (Manual) Other Cells # Nucleated RBCs # (Man) Hypersegmented Neuts Hyposegmented Neuts Hypogranular Neuts Large Granular Lymphs # Lrg Granular Lymphs Hairy Cells Smudge Cells Toxic Granulation Toxic Vacuolation Dohle Bodies Yamila Rods Platelet Estimate (Normal) Hypogranular Platelets Clumped Platelets Giant Platelets Platelet Satelliting RBC Morphology Polychromasia Hypochromasia Poikilocytosis Basophilic Stippling Anisocytosis Microcytosis Macrocytosis Spherocytes Pappenheimer Bodies Sickle Cells Target Cells Tear Drop Cells Ovalocytes Stomatocytes Parnell-Sage Bodies Echinocytes Acanthocytes (Spur) Rouleaux RBC Agglutinates Schistocytes Peripher Smr Path Cons Sezary Cell PT (9.0-12.0) Seconds INR (0.9-1.1) VBG pH (7.36-7.41) VBG pCO2 (38-50) mmHg VBG pO2 mmHg VBG HCO3 mmol/L VBG O2 Saturation % VBG Base Excess mEq/L Sodium 132 L (136-145) mmol/L Potassium 3.7 (3.5-5.1) mmol/L Chloride 99 (98-107) mmol/L Carbon Dioxide 26 (21-32) mmol/L Anion Gap 7 (3-11) BUN 21 (6-23) mg/dl Creatinine 1.43 H (0.6-1.4) mg/dl Est Cr Clr Drug Dosing 38.0 ml/min Est GFR ( Amer) 51.0 ml/min Est GFR (Non-Af Amer) 44.0 ml/min BUN/Creatinine Ratio 14.7 (10-20) Glucose 226 H (70-99(Fasting)) mg/dl POC Glucose 201 H (70-99) mg/dl Estimat Average Glucose mg/dl Hemoglobin A1c (4.5-5.6) % Calcium 7.8 L (8.5-10.1) mg/dl Ionized Calcium (1.12-1.32) mmol/L Phosphorus (2.5-4.9) mg/dl Magnesium (1.7-2.4) mg/dl Total Bilirubin (0.2-1.0) mg/dl AST (13-39) U/L ALT (7-52) U/L Alkaline Phosphatase (34-104) U/L Troponin I High Sens 30.0 H (0-20) pg/ml B-Natriuretic Peptide (0-100) pg/ml Total Protein (6.0-8.3) gm/dl Albumin (3.4-5.0) gm/dl Globulin (2.5-4.0) gm/dl Albumin/Globulin Ratio (0.9-2) Lipase (11-82) U/L Procalcitonin (0-0.5) ng/ml TSH (0.300-4.500) uIu/ml Urine Color Urine Appearance (Clear) Urine pH (4.5-7.5) Ur Specific [place] (1.000-1.030) Urine Protein (Negative) Urine Glucose (UA) (Negative) Urine Ketones (Negative) Urine Blood (Negative) Urine Nitrite (Negative) Urine Bilirubin (Negative) Urine Urobilinogen (Negative) Ur Leukocyte Esterase (Negative) Urine WBC (Auto) (0-5) /hpf Urine RBC (Auto) (0-4) /hpf U Hyaline Cast (Auto) (0-5) /lpf U Epithel Cells (Auto) (0-5) /lpf Urine Bacteria (Auto) (Negative) Ur Renal Epithelial Cell SARS-CoV-2, RNA, NAAT (NEGATIVE) Blood Parasites ID Blood Type Blood Type Recheck B Positive Antibody Screen Crossmatch Transfusion React Date Transfusion React Time Tx React Symptoms Reaction Clerical Check Lab Clerical Err Check React Component Return Volume Returned Pre-Trans Blood Type Pre-Trans Vis Hemolysis Pre-Trans EVANS (Negative) Pre-Trans EVANS IgG (Negative) Pre-Trans EVANS Poly (Negative) Pre-Trans EVANS C3b, C3d (Negative) Post-Trans Blood Type Post-Tx Visible Hemolys Post-Trans EVANS (Negatuve) Post-Trans EVANS IgG (Negative) Post-Trans EVANS Poly (Negative) Post-Trans EVANS C3b, C3d (Negative) Post-Trans Ur Hemoglobin Reaction Path Interpret Transfusion Serv Com 10/02/21 10/02/21 10/02/21 Range/Units 01:25 01:35 01:35 WBC Cancelled 10.25 (4.8-10.8) K/ul RBC Cancelled 3.16 L (4.63-6.08) M/uL Hgb Cancelled 8.9 L (14.0-18.0) g/dl Hct Cancelled 27.5 L (40.1-51.0) % MCV Cancelled 87.0 (80.0-100.0) fL MCH Cancelled 28.2 (25.0-34.0) pg MCHC Cancelled 32.4 (32.0-36.0) g/dL RDW Std Deviation Cancelled 49.8 H (36.4-46.3) fL RDW Coeff of Jose A Cancelled 15.8 H (11.5-14.5) % Plt Count Cancelled 95 L (130-400) K/uL MPV Cancelled 10.9 (9.4-12.4) fL Immature Gran % (Auto) Cancelled 0.6 % Neut % (Auto) Cancelled 91.6 % Lymph % (Auto) Cancelled 3.6 % [place] % (Auto) Cancelled 3.9 % Eos % (Auto) Cancelled 0.1 % Baso % (Auto) Cancelled 0.2 % Neut # (Auto) Cancelled 9.39 H (1.4-6.5) K/uL Lymph # (Auto) Cancelled 0.37 L (1.2-3.4) K/uL [place] # (Auto) Cancelled 0.40 (0.24-0.82) K/uL Eos # (Auto) Cancelled 0.01 (0-0.50) K/uL Baso # (Auto) Cancelled 0.02 (0-0.2) K/uL Immature Gran # (Auto) Cancelled 0.06 H (0.00-0.02) K/uL Absolute Nucleated RBC Cancelled Nucleated RBC % (auto) Cancelled Neutrophils % (Manual) Cancelled Band Neutrophils % Cancelled Lymphocytes % (Manual) Cancelled Prolymphocyte % Cancelled Reactive Lymphs % (Man) Cancelled Monocytes % (Manual) Cancelled Eosinophils % (Manual) Cancelled Basophils % (Manual) Cancelled Metamyelocytes % (Man) Cancelled Myelocytes % (Man) Cancelled Promyelocytes % (Man) Cancelled Blast Cells % (Manual) Cancelled Plasma Cell % (Manual) Cancelled Other Cells % Cancelled Nucleated RBC % Cancelled Neutrophils # (Manual) Cancelled Band Neutrophils # Cancelled Total Absolute Neuts Cancelled Lymphocytes # (Manual) Cancelled Prolymphocyte # Cancelled Reactive Lymphs # Cancelled Total Abs Lymphocytes Cancelled Monocytes # (Manual) Cancelled Eosinophils # (Manual) Cancelled Basophils # (Manual) Cancelled Metamyelocytes # (Man) Cancelled Myelocytes # (Manual) Cancelled Promyelocytes # (Man) Cancelled Blast Cells # (Man) Cancelled Plasma Cell # (Manual) Cancelled Other Cells # Cancelled Nucleated RBCs # (Man) Cancelled Hypersegmented Neuts Cancelled Hyposegmented Neuts Cancelled Hypogranular Neuts Cancelled Large Granular Lymphs Cancelled # Lrg Granular Lymphs Cancelled Hairy Cells Cancelled Smudge Cells Cancelled Toxic Granulation Cancelled Toxic Vacuolation Cancelled Dohle Bodies Cancelled Yamila Rods Cancelled Platelet Estimate Cancelled (Normal) Hypogranular Platelets Cancelled Clumped Platelets Cancelled Giant Platelets Cancelled Platelet Satelliting Cancelled RBC Morphology Cancelled Polychromasia Cancelled Hypochromasia Cancelled Poikilocytosis Cancelled Basophilic Stippling Cancelled Anisocytosis Cancelled Microcytosis Cancelled Macrocytosis Cancelled Spherocytes Cancelled Pappenheimer Bodies Cancelled Sickle Cells Cancelled Target Cells Cancelled Tear Drop Cells Cancelled Ovalocytes Cancelled Stomatocytes Cancelled Parnell-Sage Bodies Cancelled Echinocytes Cancelled Acanthocytes (Spur) Cancelled Rouleaux Cancelled RBC Agglutinates Cancelled Schistocytes Cancelled Peripher Smr Path Cons Sezary Cell Cancelled PT 25.8 H (9.0-12.0) Seconds INR 2.5 H (0.9-1.1) VBG pH (7.36-7.41) VBG pCO2 (38-50) mmHg VBG pO2 mmHg VBG HCO3 mmol/L VBG O2 Saturation % VBG Base Excess mEq/L Sodium (136-145) mmol/L Potassium (3.5-5.1) mmol/L Chloride (98-107) mmol/L Carbon Dioxide (21-32) mmol/L Anion Gap (3-11) BUN (6-23) mg/dl Creatinine (0.6-1.4) mg/dl Est Cr Clr Drug Dosing ml/min Est GFR ( Amer) ml/min Est GFR (Non-Af Amer) ml/min BUN/Creatinine Ratio (10-20) Glucose (70-99(Fasting)) mg/dl POC Glucose (70-99) mg/dl Estimat Average Glucose mg/dl Hemoglobin A1c (4.5-5.6) % Calcium (8.5-10.1) mg/dl Ionized Calcium (1.12-1.32) mmol/L Phosphorus (2.5-4.9) mg/dl Magnesium (1.7-2.4) mg/dl Total Bilirubin (0.2-1.0) mg/dl AST (13-39) U/L ALT (7-52) U/L Alkaline Phosphatase (34-104) U/L Troponin I High Sens (0-20) pg/ml B-Natriuretic Peptide (0-100) pg/ml Total Protein (6.0-8.3) gm/dl Albumin (3.4-5.0) gm/dl Globulin (2.5-4.0) gm/dl Albumin/Globulin Ratio (0.9-2) Lipase (11-82) U/L Procalcitonin (0-0.5) ng/ml TSH (0.300-4.500) uIu/ml Urine Color Urine Appearance (Clear) Urine pH (4.5-7.5) Ur Specific [place] (1.000-1.030) Urine Protein (Negative) Urine Glucose (UA) (Negative) Urine Ketones (Negative) Urine Blood (Negative) Urine Nitrite (Negative) Urine Bilirubin (Negative) Urine Urobilinogen (Negative) Ur Leukocyte Esterase (Negative) Urine WBC (Auto) (0-5) /hpf Urine RBC (Auto) (0-4) /hpf U Hyaline Cast (Auto) (0-5) /lpf U Epithel Cells (Auto) (0-5) /lpf Urine Bacteria (Auto) (Negative) Ur Renal Epithelial Cell SARS-CoV-2, RNA, NAAT (NEGATIVE) Blood Parasites ID Cancelled Blood Type Blood Type Recheck Antibody Screen Crossmatch Transfusion React Date Transfusion React Time Tx React Symptoms Reaction Clerical Check Lab Clerical Err Check React Component Return Volume Returned Pre-Trans Blood Type Pre-Trans Vis Hemolysis Pre-Trans EVANS (Negative) Pre-Trans EVANS IgG (Negative) Pre-Trans EVANS Poly (Negative) Pre-Trans EVANS C3b, C3d (Negative) Post-Trans Blood Type Post-Tx Visible Hemolys Post-Trans EVANS (Negatuve) Post-Trans EVANS IgG (Negative) Post-Trans EVANS Poly (Negative) Post-Trans EVANS C3b, C3d (Negative) Post-Trans Ur Hemoglobin Reaction Path Interpret Transfusion Serv Com 10/02/21 10/02/21 10/02/21 Range/Units 01:35 01:35 01:35 WBC (4.8-10.8) K/ul RBC (4.63-6.08) M/uL Hgb (14.0-18.0) g/dl Hct (40.1-51.0) % MCV (80.0-100.0) fL MCH (25.0-34.0) pg MCHC (32.0-36.0) g/dL RDW Std Deviation (36.4-46.3) fL RDW Coeff of Jose A (11.5-14.5) % Plt Count (130-400) K/uL MPV (9.4-12.4) fL Immature Gran % (Auto) % Neut % (Auto) % Lymph % (Auto) % [place] % (Auto) % Eos % (Auto) % Baso % (Auto) % Neut # (Auto) (1.4-6.5) K/uL Lymph # (Auto) (1.2-3.4) K/uL [place] # (Auto) (0.24-0.82) K/uL Eos # (Auto) (0-0.50) K/uL Baso # (Auto) (0-0.2) K/uL Immature Gran # (Auto) (0.00-0.02) K/uL Absolute Nucleated RBC Nucleated RBC % (auto) Neutrophils % (Manual) Band Neutrophils % Lymphocytes % (Manual) Prolymphocyte % Reactive Lymphs % (Man) Monocytes % (Manual) Eosinophils % (Manual) Basophils % (Manual) Metamyelocytes % (Man) Myelocytes % (Man) Promyelocytes % (Man) Blast Cells % (Manual) Plasma Cell % (Manual) Other Cells % Nucleated RBC % Neutrophils # (Manual) Band Neutrophils # Total Absolute Neuts Lymphocytes # (Manual) Prolymphocyte # Reactive Lymphs # Total Abs Lymphocytes Monocytes # (Manual) Eosinophils # (Manual) Basophils # (Manual) Metamyelocytes # (Man) Myelocytes # (Manual) Promyelocytes # (Man) Blast Cells # (Man) Plasma Cell # (Manual) Other Cells # Nucleated RBCs # (Man) Hypersegmented Neuts Hyposegmented Neuts Hypogranular Neuts Large Granular Lymphs # Lrg Granular Lymphs Hairy Cells Smudge Cells Toxic Granulation Toxic Vacuolation Dohle Bodies Yamila Rods Platelet Estimate (Normal) Hypogranular Platelets Clumped Platelets Giant Platelets Platelet Satelliting RBC Morphology Polychromasia Hypochromasia Poikilocytosis Basophilic Stippling Anisocytosis Microcytosis Macrocytosis Spherocytes Pappenheimer Bodies Sickle Cells Target Cells Tear Drop Cells Ovalocytes Stomatocytes Parnell-Sage Bodies Echinocytes Acanthocytes (Spur) Rouleaux RBC Agglutinates Schistocytes Peripher Smr Path Cons Sezary Cell PT (9.0-12.0) Seconds INR (0.9-1.1) VBG pH 7.42 H (7.36-7.41) VBG pCO2 40 (38-50) mmHg VBG pO2 18 mmHg VBG HCO3 26 mmol/L VBG O2 Saturation < 60.0 % VBG Base Excess 1.3 mEq/L Sodium 131 L (136-145) mmol/L Potassium 3.5 (3.5-5.1) mmol/L Chloride 98 (98-107) mmol/L Carbon Dioxide 24 (21-32) mmol/L Anion Gap 9 (3-11) BUN 19 (6-23) mg/dl Creatinine 1.49 H (0.6-1.4) mg/dl Est Cr Clr Drug Dosing 36.5 ml/min Est GFR ( Amer) 48.6 ml/min Est GFR (Non-Af Amer) 41.9 ml/min BUN/Creatinine Ratio 12.8 (10-20) Glucose 168 H (70-99(Fasting)) mg/dl POC Glucose (70-99) mg/dl Estimat Average Glucose mg/dl Hemoglobin A1c (4.5-5.6) % Calcium 8.0 L (8.5-10.1) mg/dl Ionized Calcium 1.05 L (1.12-1.32) mmol/L Phosphorus 3.4 (2.5-4.9) mg/dl Magnesium 2.1 (1.7-2.4) mg/dl Total Bilirubin 1.4 H (0.2-1.0) mg/dl AST 12 L (13-39) U/L ALT 8 (7-52) U/L Alkaline Phosphatase 91 (34-104) U/L Troponin I High Sens 37.2 H (0-20) pg/ml B-Natriuretic Peptide (0-100) pg/ml Total Protein 6.9 (6.0-8.3) gm/dl Albumin 3.1 L (3.4-5.0) gm/dl Globulin 3.8 (2.5-4.0) gm/dl Albumin/Globulin Ratio 0.8 L (0.9-2) Lipase (11-82) U/L Procalcitonin (0-0.5) ng/ml TSH (0.300-4.500) uIu/ml Urine Color Urine Appearance (Clear) Urine pH (4.5-7.5) Ur Specific [place] (1.000-1.030) Urine Protein (Negative) Urine Glucose (UA) (Negative) Urine Ketones (Negative) Urine Blood (Negative) Urine Nitrite (Negative) Urine Bilirubin (Negative) Urine Urobilinogen (Negative) Ur Leukocyte Esterase (Negative) Urine WBC (Auto) (0-5) /hpf Urine RBC (Auto) (0-4) /hpf U Hyaline Cast (Auto) (0-5) /lpf U Epithel Cells (Auto) (0-5) /lpf Urine Bacteria (Auto) (Negative) Ur Renal Epithelial Cell SARS-CoV-2, RNA, NAAT (NEGATIVE) Blood Parasites ID Blood Type Blood Type Recheck Antibody Screen Crossmatch Transfusion React Date Transfusion React Time Tx React Symptoms Reaction Clerical Check Lab Clerical Err Check React Component Return Volume Returned Pre-Trans Blood Type Pre-Trans Vis Hemolysis Pre-Trans EVANS (Negative) Pre-Trans EVANS IgG (Negative) Pre-Trans EVANS Poly (Negative) Pre-Trans EVANS C3b, C3d (Negative) Post-Trans Blood Type Post-Tx Visible Hemolys Post-Trans EVANS (Negatuve) Post-Trans EVANS IgG (Negative) Post-Trans EVANS Poly (Negative) Post-Trans EVANS C3b, C3d (Negative) Post-Trans Ur Hemoglobin Reaction Path Interpret Transfusion Serv Com 10/02/21 10/02/21 10/02/21 Range/Units 01:35 01:35 07:20 WBC (4.8-10.8) K/ul RBC (4.63-6.08) M/uL Hgb (14.0-18.0) g/dl Hct (40.1-51.0) % MCV (80.0-100.0) fL MCH (25.0-34.0) pg MCHC (32.0-36.0) g/dL RDW Std Deviation (36.4-46.3) fL RDW Coeff of Jose A (11.5-14.5) % Plt Count (130-400) K/uL MPV (9.4-12.4) fL Immature Gran % (Auto) % Neut % (Auto) % Lymph % (Auto) % [place] % (Auto) % Eos % (Auto) % Baso % (Auto) % Neut # (Auto) (1.4-6.5) K/uL Lymph # (Auto) (1.2-3.4) K/uL [place] # (Auto) (0.24-0.82) K/uL Eos # (Auto) (0-0.50) K/uL Baso # (Auto) (0-0.2) K/uL Immature Gran # (Auto) (0.00-0.02) K/uL Absolute Nucleated RBC Nucleated RBC % (auto) Neutrophils % (Manual) Band Neutrophils % Lymphocytes % (Manual) Prolymphocyte % Reactive Lymphs % (Man) Monocytes % (Manual) Eosinophils % (Manual) Basophils % (Manual) Metamyelocytes % (Man) Myelocytes % (Man) Promyelocytes % (Man) Blast Cells % (Manual) Plasma Cell % (Manual) Other Cells % Nucleated RBC % Neutrophils # (Manual) Band Neutrophils # Total Absolute Neuts Lymphocytes # (Manual) Prolymphocyte # Reactive Lymphs # Total Abs Lymphocytes Monocytes # (Manual) Eosinophils # (Manual) Basophils # (Manual) Metamyelocytes # (Man) Myelocytes # (Manual) Promyelocytes # (Man) Blast Cells # (Man) Plasma Cell # (Manual) Other Cells # Nucleated RBCs # (Man) Hypersegmented Neuts Hyposegmented Neuts Hypogranular Neuts Large Granular Lymphs # Lrg Granular Lymphs Hairy Cells Smudge Cells Toxic Granulation Toxic Vacuolation Dohle Bodies Yamila Rods Platelet Estimate (Normal) Hypogranular Platelets Clumped Platelets Giant Platelets Platelet Satelliting RBC Morphology Polychromasia Hypochromasia Poikilocytosis Basophilic Stippling Anisocytosis Microcytosis Macrocytosis Spherocytes Pappenheimer Bodies Sickle Cells Target Cells Tear Drop Cells Ovalocytes Stomatocytes Parnell-Sage Bodies Echinocytes Acanthocytes (Spur) Rouleaux RBC Agglutinates Schistocytes Peripher Smr Path Cons Sezary Cell PT (9.0-12.0) Seconds INR (0.9-1.1) VBG pH (7.36-7.41) VBG pCO2 (38-50) mmHg VBG pO2 mmHg VBG HCO3 mmol/L VBG O2 Saturation % VBG Base Excess mEq/L Sodium 133 L (136-145) mmol/L Potassium 3.4 L (3.5-5.1) mmol/L Chloride 98 (98-107) mmol/L Carbon Dioxide 25 (21-32) mmol/L Anion Gap 10 (3-11) BUN 20 (6-23) mg/dl Creatinine 1.47 H (0.6-1.4) mg/dl Est Cr Clr Drug Dosing 36.2 ml/min Est GFR ( Amer) 49.4 ml/min Est GFR (Non-Af Amer) 42.6 ml/min BUN/Creatinine Ratio 13.6 (10-20) Glucose 195 H (70-99(Fasting)) mg/dl POC Glucose (70-99) mg/dl Estimat Average Glucose mg/dl Hemoglobin A1c (4.5-5.6) % Calcium 7.6 L (8.5-10.1) mg/dl Ionized Calcium (1.12-1.32) mmol/L Phosphorus (2.5-4.9) mg/dl Magnesium 2.0 (1.7-2.4) mg/dl Total Bilirubin (0.2-1.0) mg/dl AST (13-39) U/L ALT (7-52) U/L Alkaline Phosphatase (34-104) U/L Troponin I High Sens (0-20) pg/ml B-Natriuretic Peptide (0-100) pg/ml Total Protein (6.0-8.3) gm/dl Albumin (3.4-5.0) gm/dl Globulin (2.5-4.0) gm/dl Albumin/Globulin Ratio (0.9-2) Lipase (11-82) U/L Procalcitonin 0.25 (0-0.5) ng/ml TSH (0.300-4.500) uIu/ml Urine Color Urine Appearance (Clear) Urine pH (4.5-7.5) Ur Specific [place] (1.000-1.030) Urine Protein (Negative) Urine Glucose (UA) (Negative) Urine Ketones (Negative) Urine Blood (Negative) Urine Nitrite (Negative) Urine Bilirubin (Negative) Urine Urobilinogen (Negative) Ur Leukocyte Esterase (Negative) Urine WBC (Auto) (0-5) /hpf Urine RBC (Auto) (0-4) /hpf U Hyaline Cast (Auto) (0-5) /lpf U Epithel Cells (Auto) (0-5) /lpf Urine Bacteria (Auto) (Negative) Ur Renal Epithelial Cell SARS-CoV-2, RNA, NAAT (NEGATIVE) Blood Parasites ID Blood Type Blood Type Recheck Antibody Screen Crossmatch Transfusion React Date 10/02/2021 Transfusion React Time Tx React Symptoms Reaction Clerical Check None Found Lab Clerical Err Check None Found React Component Return PCLR Volume Returned 0 Pre-Trans Blood Type B POSITIVE Pre-Trans Vis Hemolysis No Pre-Trans EVANS Negative (Negative) Pre-Trans EVANS IgG Neg (Negative) Pre-Trans EVANS Poly Neg (Negative) Pre-Trans EVANS C3b, C3d Neg (Negative) Post-Trans Blood Type B POSITIVE Post-Tx Visible Hemolys No Post-Trans EVANS Negative (Negatuve) Post-Trans EVANS IgG Neg (Negative) Post-Trans EVANS Poly Neg (Negative) Post-Trans EVANS C3b, C3d Neg (Negative) Post-Trans Ur Hemoglobin Reaction Path Interpret Transfusion Serv Com 10/02/21 10/02/21 10/02/21 Range/Units 07:20 07:20 07:20 WBC (4.8-10.8) K/ul RBC (4.63-6.08) M/uL Hgb (14.0-18.0) g/dl Hct (40.1-51.0) % MCV (80.0-100.0) fL MCH (25.0-34.0) pg MCHC (32.0-36.0) g/dL RDW Std Deviation (36.4-46.3) fL RDW Coeff of Jose A (11.5-14.5) % Plt Count (130-400) K/uL MPV (9.4-12.4) fL Immature Gran % (Auto) % Neut % (Auto) % Lymph % (Auto) % [place] % (Auto) % Eos % (Auto) % Baso % (Auto) % Neut # (Auto) (1.4-6.5) K/uL Lymph # (Auto) (1.2-3.4) K/uL [place] # (Auto) (0.24-0.82) K/uL Eos # (Auto) (0-0.50) K/uL Baso # (Auto) (0-0.2) K/uL Immature Gran # (Auto) (0.00-0.02) K/uL Absolute Nucleated RBC Nucleated RBC % (auto) Neutrophils % (Manual) Band Neutrophils % Lymphocytes % (Manual) Prolymphocyte % Reactive Lymphs % (Man) Monocytes % (Manual) Eosinophils % (Manual) Basophils % (Manual) Metamyelocytes % (Man) Myelocytes % (Man) Promyelocytes % (Man) Blast Cells % (Manual) Plasma Cell % (Manual) Other Cells % Nucleated RBC % Neutrophils # (Manual) Band Neutrophils # Total Absolute Neuts Lymphocytes # (Manual) Prolymphocyte # Reactive Lymphs # Total Abs Lymphocytes Monocytes # (Manual) Eosinophils # (Manual) Basophils # (Manual) Metamyelocytes # (Man) Myelocytes # (Manual) Promyelocytes # (Man) Blast Cells # (Man) Plasma Cell # (Manual) Other Cells # Nucleated RBCs # (Man) Hypersegmented Neuts Hyposegmented Neuts Hypogranular Neuts Large Granular Lymphs # Lrg Granular Lymphs Hairy Cells Smudge Cells Toxic Granulation Toxic Vacuolation Dohle Bodies Yamila Rods Platelet Estimate (Normal) Hypogranular Platelets Clumped Platelets Giant Platelets Platelet Satelliting RBC Morphology Polychromasia Hypochromasia Poikilocytosis Basophilic Stippling Anisocytosis Microcytosis Macrocytosis Spherocytes Pappenheimer Bodies Sickle Cells Target Cells Tear Drop Cells Ovalocytes Stomatocytes Parnell-Sage Bodies Echinocytes Acanthocytes (Spur) Rouleaux RBC Agglutinates Schistocytes Peripher Smr Path Cons Cancelled Sezary Cell PT 25.5 H (9.0-12.0) Seconds INR 2.5 H (0.9-1.1) VBG pH (7.36-7.41) VBG pCO2 (38-50) mmHg VBG pO2 mmHg VBG HCO3 mmol/L VBG O2 Saturation % VBG Base Excess mEq/L Sodium (136-145) mmol/L Potassium (3.5-5.1) mmol/L Chloride (98-107) mmol/L Carbon Dioxide (21-32) mmol/L Anion Gap (3-11) BUN (6-23) mg/dl Creatinine (0.6-1.4) mg/dl Est Cr Clr Drug Dosing ml/min Est GFR ( Amer) ml/min Est GFR (Non-Af Amer) ml/min BUN/Creatinine Ratio (10-20) Glucose (70-99(Fasting)) mg/dl POC Glucose (70-99) mg/dl Estimat Average Glucose 151 mg/dl Hemoglobin A1c 6.9 H (4.5-5.6) % Calcium (8.5-10.1) mg/dl Ionized Calcium (1.12-1.32) mmol/L Phosphorus (2.5-4.9) mg/dl Magnesium (1.7-2.4) mg/dl Total Bilirubin (0.2-1.0) mg/dl AST (13-39) U/L ALT (7-52) U/L Alkaline Phosphatase (34-104) U/L Troponin I High Sens (0-20) pg/ml B-Natriuretic Peptide (0-100) pg/ml Total Protein (6.0-8.3) gm/dl Albumin (3.4-5.0) gm/dl Globulin (2.5-4.0) gm/dl Albumin/Globulin Ratio (0.9-2) Lipase (11-82) U/L Procalcitonin (0-0.5) ng/ml TSH (0.300-4.500) uIu/ml Urine Color Urine Appearance (Clear) Urine pH (4.5-7.5) Ur Specific [place] (1.000-1.030) Urine Protein (Negative) Urine Glucose (UA) (Negative) Urine Ketones (Negative) Urine Blood (Negative) Urine Nitrite (Negative) Urine Bilirubin (Negative) Urine Urobilinogen (Negative) Ur Leukocyte Esterase (Negative) Urine WBC (Auto) (0-5) /hpf Urine RBC (Auto) (0-4) /hpf U Hyaline Cast (Auto) (0-5) /lpf U Epithel Cells (Auto) (0-5) /lpf Urine Bacteria (Auto) (Negative) Ur Renal Epithelial Cell SARS-CoV-2, RNA, NAAT (NEGATIVE) Blood Parasites ID Blood Type Blood Type Recheck Antibody Screen Crossmatch Transfusion React Date Transfusion React Time Tx React Symptoms Reaction Clerical Check Lab Clerical Err Check React Component Return Volume Returned Pre-Trans Blood Type Pre-Trans Vis Hemolysis Pre-Trans EVANS (Negative) Pre-Trans EVANS IgG (Negative) Pre-Trans EVANS Poly (Negative) Pre-Trans EVANS C3b, C3d (Negative) Post-Trans Blood Type Post-Tx Visible Hemolys Post-Trans EVANS (Negatuve) Post-Trans EVANS IgG (Negative) Post-Trans EVANS Poly (Negative) Post-Trans EVANS C3b, C3d (Negative) Post-Trans Ur Hemoglobin Reaction Path Interpret Transfusion Serv Com 10/02/21 10/02/21 10/02/21 Range/Units 07:50 11:31 13:00 WBC (4.8-10.8) K/ul RBC (4.63-6.08) M/uL Hgb (14.0-18.0) g/dl Hct (40.1-51.0) % MCV (80.0-100.0) fL MCH (25.0-34.0) pg MCHC (32.0-36.0) g/dL RDW Std Deviation (36.4-46.3) fL RDW Coeff of Jose A (11.5-14.5) % Plt Count (130-400) K/uL MPV (9.4-12.4) fL Immature Gran % (Auto) % Neut % (Auto) % Lymph % (Auto) % [place] % (Auto) % Eos % (Auto) % Baso % (Auto) % Neut # (Auto) (1.4-6.5) K/uL Lymph # (Auto) (1.2-3.4) K/uL [place] # (Auto) (0.24-0.82) K/uL Eos # (Auto) (0-0.50) K/uL Baso # (Auto) (0-0.2) K/uL Immature Gran # (Auto) (0.00-0.02) K/uL Absolute Nucleated RBC Nucleated RBC % (auto) Neutrophils % (Manual) Band Neutrophils % Lymphocytes % (Manual) Prolymphocyte % Reactive Lymphs % (Man) Monocytes % (Manual) Eosinophils % (Manual) Basophils % (Manual) Metamyelocytes % (Man) Myelocytes % (Man) Promyelocytes % (Man) Blast Cells % (Manual) Plasma Cell % (Manual) Other Cells % Nucleated RBC % Neutrophils # (Manual) Band Neutrophils # Total Absolute Neuts Lymphocytes # (Manual) Prolymphocyte # Reactive Lymphs # Total Abs Lymphocytes Monocytes # (Manual) Eosinophils # (Manual) Basophils # (Manual) Metamyelocytes # (Man) Myelocytes # (Manual) Promyelocytes # (Man) Blast Cells # (Man) Plasma Cell # (Manual) Other Cells # Nucleated RBCs # (Man) Hypersegmented Neuts Hyposegmented Neuts Hypogranular Neuts Large Granular Lymphs # Lrg Granular Lymphs Hairy Cells Smudge Cells Toxic Granulation Toxic Vacuolation Dohle Bodies Yamila Rods Platelet Estimate (Normal) Hypogranular Platelets Clumped Platelets Giant Platelets Platelet Satelliting RBC Morphology Polychromasia Hypochromasia Poikilocytosis Basophilic Stippling Anisocytosis Microcytosis Macrocytosis Spherocytes Pappenheimer Bodies Sickle Cells Target Cells Tear Drop Cells Ovalocytes Stomatocytes Parnell-Sage Bodies Echinocytes Acanthocytes (Spur) Rouleaux RBC Agglutinates Schistocytes Peripher Smr Path Cons Sezary Cell PT (9.0-12.0) Seconds INR (0.9-1.1) VBG pH (7.36-7.41) VBG pCO2 (38-50) mmHg VBG pO2 mmHg VBG HCO3 mmol/L VBG O2 Saturation % VBG Base Excess mEq/L Sodium (136-145) mmol/L Potassium (3.5-5.1) mmol/L Chloride (98-107) mmol/L Carbon Dioxide (21-32) mmol/L Anion Gap (3-11) BUN (6-23) mg/dl Creatinine (0.6-1.4) mg/dl Est Cr Clr Drug Dosing ml/min Est GFR ( Amer) ml/min Est GFR (Non-Af Amer) ml/min BUN/Creatinine Ratio (10-20) Glucose (70-99(Fasting)) mg/dl POC Glucose 200 H 195 H (70-99) mg/dl Estimat Average Glucose mg/dl Hemoglobin A1c (4.5-5.6) % Calcium (8.5-10.1) mg/dl Ionized Calcium (1.12-1.32) mmol/L Phosphorus (2.5-4.9) mg/dl Magnesium (1.7-2.4) mg/dl Total Bilirubin (0.2-1.0) mg/dl AST (13-39) U/L ALT (7-52) U/L Alkaline Phosphatase (34-104) U/L Troponin I High Sens (0-20) pg/ml B-Natriuretic Peptide (0-100) pg/ml Total Protein (6.0-8.3) gm/dl Albumin (3.4-5.0) gm/dl Globulin (2.5-4.0) gm/dl Albumin/Globulin Ratio (0.9-2) Lipase (11-82) U/L Procalcitonin (0-0.5) ng/ml TSH (0.300-4.500) uIu/ml Urine Color Urine Appearance (Clear) Urine pH (4.5-7.5) Ur Specific [place] (1.000-1.030) Urine Protein (Negative) Urine Glucose (UA) (Negative) Urine Ketones (Negative) Urine Blood 1+ H (Negative) Urine Nitrite (Negative) Urine Bilirubin (Negative) Urine Urobilinogen (Negative) Ur Leukocyte Esterase (Negative) Urine WBC (Auto) (0-5) /hpf Urine RBC (Auto) 0-4 (0-4) /hpf U Hyaline Cast (Auto) (0-5) /lpf U Epithel Cells (Auto) (0-5) /lpf Urine Bacteria (Auto) (Negative) Ur Renal Epithelial Cell SARS-CoV-2, RNA, NAAT (NEGATIVE) Blood Parasites ID Blood Type Blood Type Recheck Antibody Screen Crossmatch Transfusion React Date Transfusion React Time Tx React Symptoms Reaction Clerical Check Lab Clerical Err Check React Component Return Volume Returned Pre-Trans Blood Type Pre-Trans Vis Hemolysis Pre-Trans EVANS (Negative) Pre-Trans EVANS IgG (Negative) Pre-Trans EVANS Poly (Negative) Pre-Trans EVANS C3b, C3d (Negative) Post-Trans Blood Type Post-Tx Visible Hemolys Post-Trans EVANS (Negatuve) Post-Trans EVANS IgG (Negative) Post-Trans EVANS Poly (Negative) Post-Trans EVANS C3b, C3d (Negative) Post-Trans Ur Hemoglobin Reaction Path Interpret Transfusion Serv Com Imaging Data Radiologist's Impression: CT head: No ICH, mass-effect or edema. No evidence of acute cortical stroke. Periventricular small vessel ischemic change. Visualized sinuses and mastoid air cells are clear. Radiologist: Cheko Rich MD ECG Data Attestation: I personally reviewed and interpreted this ECG as follows: Indication: + weakness Rate (beats per minute): 95 Rhythm: + other ECG Intervals/blocks: + IVCD and + Prolonged QT ECG [place]: + Left axis deviation ECG ST segments: + Nonspecific ST abnormalities MDM Narrative An order was placed for continuous cardiac monitoring. The monitor shows a rate of __72_ with __paced__ rhythm. THis is an 86 yo male who presents via EMS due to increased confusion and weakness. No trauma or recent illness. Patient with complicated medical history. VS stable and pt afebrile. Labs revealed worsening anemia, stable CKD, mild hypomagnesemia. CT and CXR reassuring. We discussed all results at bedside. Given anticoagulation, concern for possible occult GI bleed although pt denies noting any changes to his stools. Given unclear etiology of change in mental status along with concern for weakness, case discussed with hospitalist for additional evaluation and treatment. I suspect elevated troponin more likely from CKD than ACS. Impression & Plan AMS (altered mental status), Elevated troponin, Generalized weakness, Hypomagnesemia Discharge Plan Visit Data Chief Complaint: Altered Mental Status Stated Complaint: Altered Mental Status ED Provider: Erica Hidalgo Discharge Problem: AMS (altered mental status), Elevated troponin, Generalized weakness, Hypomagnesemia Patient Disposition: Admitted As Inpatient Discharge Instructions Interventions: ED Discharge Assessment Last Done: 10/01/21 15:00
[2021-10-01 04:58] LABS: Hematocrit (blood only) 23.6 % (40.1-51.0); Hemoglobin 7.6 g/dl (14.0-18.0); Mean Corpuscular Hemoglobin 28.3 pg (25.0-34.0); Mean Corpuscular Hgb Conc 32.2 g/dL (32.0-36.0); Mean Corpuscular Volume 87.7 fL (80.0-100.0); Mean Platelet Volume 10.7 fL (9.4-12.4); Platelet Count 98 K/uL (130-400); RDW Coefficient of Variation 16.3 % (11.5-14.5); RDW Standard Deviation 51.6 fL (36.4-46.3); Red Blood Count 2.69 M/uL (4.63-6.08); White Blood Count 7.13 K/ul (4.8-10.8)
[2021-10-01 04:59] LABS: Albumin Globulin Ratio 0.8 (0.9-2); Albumin Level 3.3 gm/dl (3.4-5.0); BUN Creatinine Ratio 12.5 (10-20); Basophils # (auto) 0.01 K/uL (0-0.2); Basophils % (auto) 0.1 %; Bilirubin,Total 1.3 mg/dl (0.2-1.0); Eosinophils # (auto) 0.02 K/uL (0-0.50); Eosinophils % (auto) 0.3 %; Est GFR (African American) 44.6 ml/min; Est GFR (Non-African American) 38.4 ml/min; Immature Granulocytes # (auto) 0.04 K/uL (0.00-0.02); Immature Granulocytes % (auto) 0.6 %; Lymphocytes # (auto) 0.45 K/uL (1.2-3.4); Lymphocytes % (auto) 6.3 %; Magnesium 1.6 mg/dl (1.7-2.4); Monocytes # (auto) 0.38 K/uL (0.24-0.82); Monocytes % (auto) 5.3 %; Neutrophils # (auto) 6.23 K/uL (1.4-6.5); Neutrophils % (auto) 87.4 %; Platelet Estimate Decreased (Normal); Potassium 3.5 mmol/L (3.5-5.1); RBC Morphology Unremarkable; Total Protein 7.3 gm/dl (6.0-8.3)
[2021-10-01 05:01] LABS: Troponin I High Sensitivity 28.7 pg/ml (0-20)
[2021-10-01] MEDS ORDERED: MAGNESIUM SULFATE / D5W 1 GM/100 ML BAG IV STA (05:14)
[2021-10-01 05:27] LABS: INR 2.5 (0.9-1.1); Prothrombin Time 25.6 Seconds (9.0-12.0)
[2021-10-01 06:35] LABS: Appearance Urine Clear (Clear); Bacteria Urine Automated Negative (Negative); Bilirubin Urine Negative (Negative); Blood Urine Trace (Negative); Color Urine Yellow; Epithelial Cell Urine Auto >30 /lpf (0-5); Glucose Urine UA Negative (Negative); Ketones Urine Negative (Negative); Leukocyte Esterase Urine Negative (Negative); Nitrite Urine Negative (Negative); Protein Urine 1+ (Negative); RBC Urine Automated 0-4 /hpf (0-4); Specific Gravity Urine 1.007 (1.000-1.030); Urobilinogen Urine Negative (Negative)
--- NOTE | 2021-10-01 07:04 | XRay Report ---
XR chest 1V portable CLINICAL HISTORY: ams TECHNIQUE: Single frontal radiograph of the chest was obtained. Comparison: Comparison is made to chest radiograph 03/14/2021 FINDINGS: Median sternotomy wires are unchanged. Dual lead pacemaker is seen. Cardiomegaly is noted. The lungs are clear. No evidence of pleural effusion or pneumothorax. IMPRESSION: No acute chest disease. ACT 112: Negative or not required by law. Electronically signed by: Rufus Mckinley M.D. 10/01/2021 7:03 AM
--- NOTE | 2021-10-01 07:07 | CT Scan Report ---
CT head/brain wo con CLINICAL HISTORY: 86 years-old Male with ams. Acutely altered mental status TECHNIQUE: Multiple axial CT images of the head were obtained without contrast. A dose lowering tech nique was utilized adhering to the principles of ALARA. CT DOSE: 1151.75 mGy.cm COMPARISON: Head CT 11/23/2017. FINDINGS: No acute intracranial hemorrhage, midline shift, intracranial mass, hydrocephalus, territorial ischem ia or abnormal extra-axial collection. Involutional changes. White matter hypodensities suggest chron ic microvascular ischemic disease. The study is motion degraded and was subsequently repeated. 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 Cerebral vascular calcifications. No acute calvarial fracture. Right parietal jose hole. Prior bilateral lens repair. The paranasal si nuses, mastoid air cells, and middle ear cavities are clear. IMPRESSION: No acute intracranial abnormality. ACT 112: Negative or not required by law. The above report was generated using voice recognition software. It may contain grammatical, syntax o r spelling errors. Electronically signed by: Rafael Jones M.D. 10/01/2021 7:05 AM
[2021-10-01] MEDS: MAGNESIUM SULFATE / D5W 1 GM/100 ML BAG IV SCH ×2 (09:49→10:18)
[2021-10-01] MEDS ORDERED: FUROSEMIDE INJ 20 MG/2 ML VIAL IV ONE ×2 (10:11→21:00)
[2021-10-01] MEDS ORDERED: FUROSEMIDE 40 MG/4 ML VIAL IV ONE (10:15)
[2021-10-01] MEDS ORDERED: PANTOprazole 40 MG in SYRINGE 0 ML IV ONE (10:20)
[2021-10-01] MEDS ORDERED: METOPROLOL SUCC 50MG EXT REL TAB PO STA (11:16)
--- NOTE | 2021-10-01 11:17 | History & Physical Report ---
Date of Service October 01, 2021 Assessment & Plan (1) Confusion: Plan: Acute temporary confusion time frame is difficult to establish as well as length of symptoms as patient still has no recollection of event or why he came to the EMD - DDX: Anemia vs. tia vs. TGA vs. infectious vs. other/aging - CT scan of head negative for any acute process - note of old lacunar infarct - History of Head bleed, however unable to find more information on this - Glucose normal on arrival - Urine negative- WBC normal no fevers, normal CXR - TSH normal - No other focal deficits or vision changes- will obtain carotid Doppler- consider MRI if symptoms persist however patient had difficulty lying still for CT non con of head - Hemodynamics intact - no evidence of organ dysfunction- follow clincally (2) Anemia: Plan: Acute anemia unspecified- HGB 7.6 with report of dark stools with decreased appetitie and without epigastric pain - will type and screen - diurese as he does have extra volume on board- recheck CBC later in the afternoon - as above he is hemodynamically stable and asymptomatic other than #1 - If HGB decreases or does not increase following diuresing- transfuse for HGB >8 - Protonix 40mg IV now and then BID- trend and consider GI evaluation - Hold Warfarin at this time- INR 2.5 (3) Pacemaker: Plan: ExoYou Hilda XT MRI [id number] Atrial Lead CasureFix Novus MRI Septal SelectSecure Appropriate AV sense with appropriate fire and capture of ventricle Miode DDD with mode switch at 171 - Low rate 60 - upper track 130 AT/AF >171 VT >150 (4) Elevated troponin: Plan: Likely demand elevation as asymptomatic and related to his underlying structual heart disease - trend HScTNI - no acute intervention at this time - Continue BB- did not take medications this morning- will give 50mg Metoprolol now - Continue with BP control with amlodipine as hemodynamics allow (5) S/P TAVR (transcatheter aortic valve replacement): Plan: [place] [facility] [place] Repeat ECHOs with improvement in aortic valve velocities - Remains on Warfarin with plan of discontinuing this by primary cardiology service ~ November (6) CKD (chronic kidney disease) stage 3, GFR 30-59 ml/min: Plan: 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 - stable - diurese as above - avoid further nephrotoxic medications as able (7) CAD (coronary atherosclerotic disease): Plan: CABG 2007 with cath 01/13 severe left main disease with patent grafts - As above- continue with BB and BP control - Trend HScTNI (8) Anticoagulant long-term use: Plan: Secondary to Afib- s/p TAVR and DDD pacemaker - plan as above per primary cardiology to discontinue in ~ November - Hold as above (9) HTN (hypertension): Plan: As above (10) DM II (diabetes mellitus, type II), controlled: Plan: Hold oral agents - transistion to Sliding Scale Insulin- Aspart with CF 20 hold on carb ratio at this time to follow oral intake - Goal <180 - hypoglycemic protocol -check A1C in AM (11) Electrolyte abnormality: Plan: Hyponatremic and hypochloremic with edema to bilateral lower extremities- will diurese now with IV lasix and likely repeat if needed - likely hypervolemic hyponatremic complicated by decrease solute intake with decrease oral food intake Hypomag- replete with 3 GM IV Magnesium 1.6 as above diarrhea plus decrease food intake iCA 1.15 follow (12) HF (heart failure), diastolic: Plan: Chronic HFpEF will need some IV diuresing as above follow volume status combination of lower extremity edema likley related to low albumin, age, decrease overall function at home History of Present Illness Primary Care Provider: Shikha Jarquin MD 86 YOM with medical history of: Afib (on coumadin), CABG(2007), CAD, S/P TAVR, fall with right fracture 09/13 (follows with [facility] surgery declined by patient), pacemaker insertion, LVH with diastolic dysfunction (HFpEF), subdural hematoma with jose holes. Patient was brought to the EMD today via EMS secondary to having eppisode of consfusion this mornig while eating brittany joshi in the car. Reports from his son state that his mom told him the patient was just standing there looking at the wall and could not remember where he was or what he was doing. The patient has no recollection of this. He states that he has been feeling well and son reports that he had no difficulty talking or walking. The patient cognitive status is slower than what he has been. The patient son thinks this has declined over the past 2-3 months. He reports that after he broke his shoulder and in a sling that he couldn't use his right arm so he functionally slowed down with using a wheelchair to get around the house. In the EMD the patient had routine labs performed to include a HScTNI, BNP, and UA. His labs returned notable for decrease in HGB to 7.6, hyponatremia, hypomag, hypocalcemia. BNP was mildly elevated. Upon further questioning the patient endorsed 2-3 loose black bowel movements over the past 1-2 weeks, but unsure of time frame. He denies any johnathan blood. His INR is 2.7. 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 Overall he has no other focal deficits. Will diurese him with 20mg of Lasix secondary to his leg edema, follow his HGB with diuresing. If continue to drop or not improve, will administer PRBC for goal >8. Protonix IV BID first dose now and hold his warfarin. Will obtain carotid dopplers. COVID test on admission is: NEGATIVE Allergies Allergy/AdvReac Type Severity Reaction Status Date / Time No Known Allergies Allergy Mild NONE Verified 08/28/21 08:38 Home Medications Medication Instructions Recorded Confirmed Type finasteride 5 mg tablet 5 mg PO DAILY 01/17/21 10/01/21 History glipizide 10 mg tablet 20 mg PO BID 01/17/21 10/01/21 History metoprolol succinate 50 mg 50 mg PO DAILY 01/17/21 10/01/21 History tablet,extended release 24 hr simvastatin 20 mg tablet 20 mg PO HS 01/17/21 10/01/21 History tamsulosin 0.4 mg capsule 0.4 mg PO DAILY 01/17/21 10/01/21 History cyanocobalamin (vitamin B-12) 5,000 mcg PO DAILY #30 caps 03/22/21 10/01/21 Rx 5,000 mcg capsule furosemide 40 mg tablet 40 mg PO BID #60 tabs 03/22/21 10/01/21 Rx amoxicillin 500 mg tablet 2,000 mg PO ONCE #20 tabs 07/24/21 10/01/21 Rx amlodipine 2.5 mg tablet 5 mg PO DAILY 08/28/21 10/01/21 History warfarin 5 mg tablet 5 mg PO DAILY #100 tabs 09/25/21 10/01/21 Rx triamcinolone acetonide 0.1 % 1 applic topical BID Right Leg 10/01/21 10/01/21 History topical ointment Wound Past Med/Surg History Medical History (Updated 10/01/21 @ 19:42 by Alicia Hendrickson MD) Anticoagulant long-term use Atrial fibrillation, new onset BPH w urinary obs/LUTS Colon cancer Coronary artery disease Diabetes Hypercholesterolemia Hypertension Lower extremity edema Subdural hematoma Surgical History (Updated 10/01/21 @ 19:42 by Alicia Hendrickson MD) History of heart bypass surgery History of partial colectomy S/P TAVR (transcatheter aortic valve replacement) Status post evacuation of subdural hematoma Family History (Updated 10/01/21 @ 19:42 by Alicia Hendrickson MD) Other Family history non-contributory Social History Smoking Status: Former smoker Tobacco Type: Cigarettes Second Hand Exposure: No; Do You Dip or Chew Tobacco: No; Tobacco Cessation Education Requested by Patient: No Hx Alcohol Use: No Hx Substance Use: No Preferred Language: Japanese Communication Ability: Effective Certified Personal Finance Counselor Required: No Beliefs That Will Affect Care: None marital status: Current Living Situation: Family Current Living Situation Comment: and Te current occupational status: employed and retired How many Children do You have: 3 Other Information That Helps Us Care for You: No Feels Safe at Home: Yes Safety Concerns: Feels Safe At This Time Assistive Devices: Cane Review of Systems Review of Systems: REVIEW OF SYSTEMS: Constitutional: No fever, sweats or chills Eyes: No diplopia, no worsening or blurred vision ENT: (+) difficulty hearing, no trouble swallowing Respiratory: No cough, sputum, dyspnea at rest or on exertion Cardiovascular: (+) lower extremity edema, No chest pain, tightness or palpitations Abdomen: (+) dark stools, No pain, nausea, vomiting, diarrhea or constipation Musculoskeletal: (+) right shoulder joint pain, Neurologic: No weakness, numbness/tingling, or balance problems Psychiatric: No anxiety or depression Skin: (+) bruising Physical Exam Physical Exam: PHYSICAL EXAM: General: awake, alert, no apparent distress, cognitively slow Head: Normocephalic, atraumatic ENT: PERRLA, EOMI, no pharyngeal exudate, mucous membranes moist Neuro: AAO x 3, speech clear and appropriate, strength intact bilaterally 5/5, sensation intact and equal all extremities and dermatomes, no pronator drift, Chest: equal rise and fall of the chest, no accessory muscle use, no heaves or thrills, scattered crackles in bases Cardiac: Regular rate and rhythm, telemetry reviewed- V pace, skin warm dry, cap refill <3 seconds, peripheral pulses +2 no JVD, +3 pitting edema bilateral legs and feet to mid calf GI: NABS x 4 quadrants, soft, nontender to palpation, no rebound, guarding or tenderness : Spontaneously voiding, no pain, no CVA tenderness, Psych: Normal mood and affect Skin: bruising to hands, right rib, and subxiphoid Results & Data Results & Data ([facility]) Vital Signs (Past 12 Hours) Vital Signs Temp Pulse Resp BP Pulse Ox O2 Del Method 10/01/21 09:01 92 H 24 184/95 H 97 10/01/21 08:00 92 H 24 148/72 H 95 10/01/21 07:00 85 24 143/66 H 97 10/01/21 06:30 88 27 H 133/72 94 Room Air 10/01/21 06:00 24 153/72 H 96 Room Air 10/01/21 04:26 95 Room Air 10/01/21 04:00 36.8 C 95 H 26 H 122/68 95 Room Air Laboratory Results Abnormal lab results 10/01/21 10/01/21 10/01/21 Range/Units 03:35 03:35 03:35 RBC 2.69 L (4.63-6.08) M/uL Hgb 7.6 L (14.0-18.0) g/dl Hct 23.6 L (40.1-51.0) % RDW Std Deviation 51.6 H (36.4-46.3) fL RDW Coeff of Jose A 16.3 H (11.5-14.5) % Plt Count 98 L (130-400) K/uL Lymph # (Auto) 0.45 L (1.2-3.4) K/uL Immature Gran # (Auto) 0.04 H (0.00-0.02) K/uL Platelet Estimate Decreased L (Normal) PT (9.0-12.0) Seconds INR (0.9-1.1) Sodium 130 L (136-145) mmol/L Chloride 96 L (98-107) mmol/L Creatinine 1.60 H (0.6-1.4) mg/dl Glucose 164 H (70-99(Fasting)) mg/dl Calcium 8.0 L (8.5-10.1) mg/dl Magnesium 1.6 L (1.7-2.4) mg/dl Total Bilirubin 1.3 H (0.2-1.0) mg/dl AST 9 L (13-39) U/L ALT 6 L (7-52) U/L Troponin I High Sens 28.7 H (0-20) pg/ml B-Natriuretic Peptide 392 H (0-100) pg/ml Albumin 3.3 L (3.4-5.0) gm/dl Albumin/Globulin Ratio 0.8 L (0.9-2) Urine Protein (Negative) Urine Blood (Negative) U Epithel Cells (Auto) (0-5) /lpf 10/01/21 10/01/21 Range/Units 04:55 06:02 RBC (4.63-6.08) M/uL Hgb (14.0-18.0) g/dl Hct (40.1-51.0) % RDW Std Deviation (36.4-46.3) fL RDW Coeff of Jose A (11.5-14.5) % Plt Count (130-400) K/uL Lymph # (Auto) (1.2-3.4) K/uL Immature Gran # (Auto) (0.00-0.02) K/uL Platelet Estimate (Normal) PT 25.6 H (9.0-12.0) Seconds INR 2.5 H (0.9-1.1) Sodium (136-145) mmol/L Chloride (98-107) mmol/L Creatinine (0.6-1.4) mg/dl Glucose (70-99(Fasting)) mg/dl Calcium (8.5-10.1) mg/dl Magnesium (1.7-2.4) mg/dl Total Bilirubin (0.2-1.0) mg/dl AST (13-39) U/L ALT (7-52) U/L Troponin I High Sens (0-20) pg/ml B-Natriuretic Peptide (0-100) pg/ml Albumin (3.4-5.0) gm/dl Albumin/Globulin Ratio (0.9-2) Urine Protein 1+ H (Negative) Urine Blood Trace H (Negative) U Epithel Cells (Auto) >30 H (0-5) /lpf Diagnostic Findings Head CT 10/01/21 04:16 CT head/brain wo con CLINICAL HISTORY: 86 years-old Male with ams. Acutely altered mental status TECHNIQUE: Multiple axial CT images of the head were obtained without contrast. A dose lowering technique was utilized adhering to the principles of ALARA. CT DOSE: 1151.75 mGy.cm COMPARISON: Head CT 11/23/2017. FINDINGS: No acute intracranial hemorrhage, midline shift, intracranial mass, hydr ocephalus, territorial ischemia or abnormal extra-axial collection. Involutional changes. White matter hypodensities suggest chronic microvascular ischemic disease. The study is motion degraded and was subsequently repeated. 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 Cerebral vascular calcifications. No acute calvarial fracture. Right parietal jose hole. Prior bilateral lens repair. The paranasal sinuses, mastoid air cells, and middle ear cavities are clear. IMPRESSION: No acute intracranial abnormality. ACT 112: Negative or not required by law. The above report was generated using voice recognition software. It may contain grammatical, syntax or spelling errors. Electronically signed by: Rafael Jones M.D. 10/01/2021 7:05 AM Chest X-Ray 10/01/21 04:17 XR chest 1V portable CLINICAL HISTORY: ams TECHNIQUE: Single frontal radiograph of the chest was obtained. Comparison: Comparison is made to chest radiograph 03/14/2021 FINDINGS: Median sternotomy wires are unchanged. Dual lead pacemaker is seen. Cardiomegaly is noted. The lungs are clear. No evidence of pleural effusion or pneumothorax. IMPRESSION: No acute chest disease. ACT 112: Negative or not required by law. Electronically signed by: Rufus Mckinley M.D. 10/01/2021 7:03 AM Medications Administered Home Medications finasteride 5 mg tablet 5 mg PO DAILY 01/17/21 [History Confirmed 10/01/21] glipizide 10 mg tablet 20 mg PO BID 01/17/21 [History Confirmed 10/01/21] metoprolol succinate 50 mg tablet,extended release 24 hr 50 mg PO DAILY 01/17/21 [History Confirmed 10/01/21] simvastatin 20 mg tablet 20 mg PO HS 01/17/21 [History Confirmed 10/01/21] tamsulosin 0.4 mg capsule 0.4 mg PO DAILY 01/17/21 [History Confirmed 10/01/21] cyanocobalamin (vitamin B-12) 5,000 mcg capsule 5,000 mcg PO DAILY #30 caps 03/22/21 [Rx Confirmed 10/01/21] furosemide 40 mg tablet 40 mg PO BID #60 tabs 03/22/21 [Rx Confirmed 10/01/21] amoxicillin 500 mg tablet 2,000 mg PO ONCE #20 tabs 07/24/21 [Rx Confirmed 10/01/21] amlodipine 2.5 mg tablet 5 mg PO DAILY 08/28/21 [History Confirmed 10/01/21] warfarin 5 mg tablet 5 mg PO DAILY #100 tabs 09/25/21 [Rx Confirmed 10/01/21] triamcinolone acetonide 0.1 % topical ointment 1 applic topical BID Right Leg Wound 10/01/21 [History Confirmed 10/01/21] Active Medications Magnesium Sulfate/Dextrose (Magnesium Sulfate / D5w) 1 gm in 100 mls @ 50 mls/hr IV Q2H GEETA Stop: 10/01/21 13:44 Last Admin: 10/01/21 10:18 Dose: 50 mls/hr Magnesium Sulfate/Dextrose (Magnesium Sulfate / D5w) 1 gm in 100 mls @ 50 mls/hr IV Q2H GEETA Stop: 10/01/21 13:44 Last Admin: 10/01/21 10:18 Dose: 50 mls/hr Documented By: Infusion: 10/01/21 10:17 Dose: 0 mls/hr Documented By: Admin: 10/01/21 09:49 Dose: 50 mls/hr Documented By: JESSICA Discontinued Medications Furosemide (Furosemide 40 Mg/4 Ml Vial) Confirm Administered Dose 40 mg IV .STK- MED ONE Stop: 10/01/21 10:16 Last Admin: 10/01/21 10:18 Dose: 20 mg Documented By: JESSICA Magnesium Sulfate/Dextrose (Magnesium Sulfate / D5w) 1 gm in 100 mls @ 100 mls/hr IV NOW STA Stop: 10/01/21 06:13 Last Infusion: 10/01/21 06:52 Dose: 0 mls/hr Documented By: Admin: 10/01/21 05:58 Dose: 100 mls/hr Documented By: MARYA ECG Additional Comments: Atrial-sensed ventricular-paced rhythm Abnormal ECG When compared with ECG of 20-MAR-2021 06:28, Vent. rate has decreased BY 8 BPM Code Status & VTE Plan Code Status CODE: DNR/DNI VTE: SCDS, TEDS Supervising Physician Co-Signing Physician Notes RANGE MASTER Supervision note: I have personally seen and examined the patient and discussed and verified the martinez points of the history and physical along with the plan with LEA Doss with the following exceptions and/or additions: S-pt presents with general slowing in mentation, mild confusion, but no focal weakness. After hgb found to be low, did endorse melena and a sense of felein gnauseated for the last week. No h/o GI bleed but has a h/o colon CA in 2007 s/p partial colectomy, chemo, and XRT. Last colonoscopy 2014 but never had EGD. History and ROS otherwise as reviewed above O- Vitals reviewed Gen: [AAOx3, NAD] HEENT: [anicteric sclerae, EOMI] CV: [RRR 1/6 PRABHAKAR at RUSB nl S1S2] Pulm: [CTAB no wcr] Abd: [+BS soft NT ND no masses or hernias] Ext: [no edema, 2+ DP pulses] Skin: [no rashes, warm/dry] Neuro: [full strength throughout] Labs, rads, ECG reviewed A/P-86 yo male here with weakness, fatigue, acute metabolic encephalopathy likely 2/2 anemia, melena, and associated lyte abnormalities Transfuse 2 units PRBCs for repeat hgb later down to 6.9 and with myocardial demand ischemia continue PPI bid consult GI Keep NPO after midnight in case of EGD tomorrow PG Care Time/CCT Total # of Minutes Spent Total Time Spent with Patient: Total time spent is greater than 50% in coordination of care (as documented) at patient's floor/unit and/or counseling patient: Coding Level of Care Code INT OBSERVATION CARE 70M LVL 3 Diagnoses Confusion R41.0 Anemia D64.9 Pacemaker Z95.0 Elevated troponin R77.8 S/P TAVR (transcatheter aortic valve replacement) Z95.2 CKD (chronic kidney disease) stage 3, GFR 30-59 ml/min N18.30 CAD (coronary atherosclerotic disease) I25.810 Associated angina: unspecified whether angina present Coronary Disease-Associated Artery/Lesion type: bypass graft [place] vs. transplanted heart: [place] heart Anticoagulant long-term use Z79.01 HTN (hypertension) I10 DM II (diabetes mellitus, type II), controlled E11.9 Electrolyte abnormality E87.8 HF (heart failure), diastolic I50.30 (1) CAD (coronary atherosclerotic disease) Associated angina: unspecified whether angina present Coronary Disease- Associated Artery/Lesion type: bypass graft [place] vs. transplanted heart: [place] heart Qualified Code(s): I25.810 - Atherosclerosis of coronary artery bypass graft(s) without angina pectoris
[2021-10-01] MEDS ORDERED: GLUCOSE 10 TAB/TUBE PO PRN (13:00)
[2021-10-01] MEDS ORDERED: GLUCOSE 40% GEL 15 GM TUBE PO PRN (13:00)
[2021-10-01] MEDS ORDERED: GLUCAGON FOR INJ 1 MG VIAL SQ PRN (13:00)
[2021-10-01] MEDS ORDERED: DEXTROSE 50% 50 ML SYRINGE IV PRN (13:00)
[2021-10-01] MEDS ORDERED: ACETAMINOPHEN 325 MG TAB PO PRN (13:00)
[2021-10-01] MEDS ORDERED: CARBOHYDRATES FOR HYPOGLYCEMIA PO PRN (13:00)
--- NOTE | 2021-10-01 15:12 | Ultrasound Report ---
US carotid doppler BI CLINICAL HISTORY: tia symptoms. COMPARISON: None. TECHNIQUE: Robertson scale, Doppler spectral analysis, and color imaging was performed. Stenosis assessmen t by velocity criteria. FINDINGS: Right CCA velocity (cm/s): 67 Right ICA velocity (cm/s): 103 Right ICA/CCA ratio: 1.5 Right vertebral arterial flow: Antegrade. Right findings: There is no significant atherosclerotic plaquing noted on the right. Left CCA velocity (cm/s): 78 Left ICA velocity (cm/s): 83 Left ICA/CCA ratio: 1.1 Left vertebral arterial flow: Antegrade. Left findings: There is no significant atherosclerotic plaquing noted on the left. IMPRESSION: No significant atherosclerotic plaquing or significant flow limiting stenoses noted by v elocity criteria bilaterally. ACT 112: Negative or not required by law. Electronically signed by: Chris Schmidt M.D. 10/01/2021 3:11 PM
[2021-10-01] MEDS: amLODIPine BESYLATE 5 MG TAB PO SCH (16:05)
[2021-10-01] MEDS: INSULIN ASPART PER UNIT SC SCH ×3 (16:06→21:59)
[2021-10-01 17:40] LABS: BUN Creatinine Ratio 14.7 (10-20); Calcium 7.8 mg/dl (8.5-10.1); Potassium 3.7 mmol/L (3.5-5.1)
[2021-10-01] MEDS ORDERED: SODIUM CHLORIDE 0.9% 250 ML IV PRN (18:04)
[2021-10-01] MEDS: PANTOprazole 40 MG in SYRINGE 0 ML IV SCH (21:59)
[2021-10-01] MEDS: SIMVASTATIN 20 MG TAB PO SCH (22:00)
[2021-10-01] MEDS: TRIAMCINOLONE ACET 0.1% OINT 15 GM TUBE TOP SCH (22:04)
[2021-10-02] MEDS ORDERED: LEVALBUTEROL HCL 0.63 MG/3 ML NEB NEB STA (01:17)
[2021-10-02 01:52] LABS: Base Excess VBG 1.3 mEq/L; HCO3 VBG 26 mmol/L; Oxygen Saturation VBG < 60.0 %; PCO2 VBG 40 mmHg (38-50); PO2 VBG 18 mmHg; pH VBG 7.42 (7.36-7.41)
[2021-10-02 02:06] LABS: INR 2.5 (0.9-1.1); Prothrombin Time 25.8 Seconds (9.0-12.0)
--- NOTE | 2021-10-02 02:11 | Communication Note ---
Date of Service: October 02, 2021 Night resident note 01:10- RN notified me that patient developed audible wheezing, tachycardia (110s), tachypnea (30s), and increased oxygen requirement (from RA to 2L NC) about 45 minutes after completing a transfusion of 1u pRBC. Patient afebrile, spO2 on 2L NC was 92%. Patient had received lasix IV 20mg about 15 minutes prior to developing the above signs/symptoms. I ordered a portable CXR, an EKG, ordered fluids to be held, and ordered a stat VBG, CBC, CMP, mag, phos, PT/INR, ionized calcium, hsTroponin, and procal. I went an examined patient who was awake, oriented to person only (which does not appear to be a worsening of mental status based on prior notes and HPI), tachypneic, and shivering. Patient denied SOB, CP, or other symptoms. Physical exam Gen: shivering, slightly tired-appearing but easily arousable, answered questions appropriately CV: heart sounds distant, no LE edema Resp: tachypneic, breathing slightly labored, no wheezing or crackles appreciated Abd: soft, nondistended, nontender, BS present Neuro: alert, oriented to person only, no focal deficit appreciated Diagnostics CXR: mildly increased haziness compared to prior on 09/30 EKG: atrial-sensed ventricular-paced rhythm, QTc mildly prolonged at 507, no overt ischemic change Repeat labs notable for: Improvement in Hgb (8.9, prior value 6.9) Stable thrombocytopenia (95, prior value 98) Minimally worsened MARCO (1.49, prior value 1.43) INR stable (2.5, unchanged from prior) VBG notable only for minimally elevated pH (7.42), other parameters wnl Equivocal hyponatremia (131, prior value 132) Slightly worsened hypocalcemia (ionized calcium 1.05, prior value 1.15) Equivocal hyperbilirubinemia (1.4, prior value 1.3) Minimal increase in hsTroponin (37.2, prior value 30.0, patient without CP) Procalcitonin pending Plan Additional lasix 20mg IV (x1) administered Supplemental oxygen as-needed, wean as tolerated, low threshold to initiate CPAP Will hold off on transfusing the second unit of pRBC given that patient's Hgb improved nicely 02:30- patient's spO2 was 98% on 2L NC, so I increased it to 4L NC, which did not result in any change. Patient was mouth-breathing so I ordered NC to be switched to oxymask, but as RN was about to switch to oxymask, she noted patient's spO2 was 100%, at which time I asked RN to wean supplemental oxygen as tolerated. Patient's clinical picture otherwise unchanged at that time. 04:15- spoke with RN who reports patient's spO2 is holding steady in the mid-90s on 2L NC. Patient is no longer tachypneic and HR is in mid-100s. Will continue to monitor. Yury Smart MD, PGY-3 Resident Activity Tracking Resident Involvement: Resident Care Provided and [employer] Instructor Coverage Note Care Provided: Adult [facility]
[2021-10-02 02:16] LABS: Hematocrit (blood only) 27.5 % (40.1-51.0); Hemoglobin 8.9 g/dl (14.0-18.0); Mean Corpuscular Hemoglobin 28.2 pg (25.0-34.0); Mean Corpuscular Hgb Conc 32.4 g/dL (32.0-36.0); Mean Platelet Volume 10.9 fL (9.4-12.4); Platelet Count 95 K/uL (130-400); RDW Coefficient of Variation 15.8 % (11.5-14.5); RDW Standard Deviation 49.8 fL (36.4-46.3); Red Blood Count 3.16 M/uL (4.63-6.08); White Blood Count 10.25 K/ul (4.8-10.8)
[2021-10-02 02:17] LABS: Basophils # (auto) 0.02 K/uL (0-0.2); Basophils % (auto) 0.2 %; Eosinophils # (auto) 0.01 K/uL (0-0.50); Eosinophils % (auto) 0.1 %; Immature Granulocytes # (auto) 0.06 K/uL (0.00-0.02); Immature Granulocytes % (auto) 0.6 %; Lymphocytes # (auto) 0.37 K/uL (1.2-3.4); Lymphocytes % (auto) 3.6 %; Monocytes % (auto) 3.9 %; Neutrophils # (auto) 9.39 K/uL (1.4-6.5); Neutrophils % (auto) 91.6 %
[2021-10-02 02:27] LABS: Albumin Globulin Ratio 0.8 (0.9-2); Albumin Level 3.1 gm/dl (3.4-5.0); BUN Creatinine Ratio 12.8 (10-20); Bilirubin,Total 1.4 mg/dl (0.2-1.0); Creatinine Clr Calc Pharmacy 36.5 ml/min; Est GFR (African American) 48.6 ml/min; Est GFR (Non-African American) 41.9 ml/min; Globulin 3.8 gm/dl (2.5-4.0); Magnesium 2.1 mg/dl (1.7-2.4); Phosphorus 3.4 mg/dl (2.5-4.9); Potassium 3.5 mmol/L (3.5-5.1); Total Protein 6.9 gm/dl (6.0-8.3); Troponin I High Sensitivity 37.2 pg/ml (0-20)
[2021-10-02] MEDS ORDERED: FUROSEMIDE INJ 20 MG/2 ML VIAL IV ONE (02:35)
--- NOTE | 2021-10-02 05:57 | Electrocardiogram Report ---
Test Reason : Blood Pressure : / mmHG Vent. Rate : 095 BPM Atrial Rate : 095 BPM P-R Int : 150 ms QRS Dur : 146 ms QT Int : 442 ms P-R-T Axes : 112 -38 096 degrees QTc Int : 555 ms Atrial-sensed ventricular-paced rhythm Abnormal ECG When compared with ECG of 20-MAR-2021 06:28, Vent. rate has decreased BY 8 BPM Confirmed by Scooter Crowley ([id number]) on 10/02/2021 5:56:50 AM Referred By: REFERRED SELF Confirmed By:Scooter Crowley
--- NOTE | 2021-10-02 06:42 | XRay Report ---
XR chest 1V portable CLINICAL HISTORY: SOB, increased o2 requirement s/p pRBC transfusion COMPARISON STUDY: Chest radiograph October 01, 2021. FINDINGS: Median sternotomy wires, prosthetic cardiac valve and dual lead left subclavian pacemaker a re in place. Old right-sided rib fractures are noted. Healing proximal humeral fracture with callus f ormation is noted. Cardiomegaly is unchanged. There has been interval development of interstitial thi ckening and patchy bilateral airspace opacities. No pneumothorax or pleural effusion is noted. IMPRESSION: Cardiomegaly. Interval development of interstitial thickening and bilateral airspace opa cities. The findings favor pulmonary edema however transfusion related acute lung injury could appear similar given the clinical history. ACT 112: Negative or not required by law. Electronically signed by: Dominick Helms M.D. 10/02/2021 6:40 AM
[2021-10-02] MEDS: TRIAMCINOLONE ACET 0.1% OINT 15 GM TUBE TOP SCH ×2 (07:14→23:59)
[2021-10-02] MEDS: FINASTERIDE 5 MG TAB PO SCH (07:14)
[2021-10-02] MEDS: METOPROLOL SUCC 50MG EXT REL TAB PO SCH (07:14)
[2021-10-02] MEDS: amLODIPine BESYLATE 5 MG TAB PO SCH (07:14)
[2021-10-02] MEDS: PANTOprazole 40 MG in SYRINGE 0 ML IV SCH ×2 (07:14→21:41)
[2021-10-02] MEDS ORDERED: FUROSEMIDE 40 MG/4 ML VIAL IV ONE (07:45)
[2021-10-02 07:46] LABS: Estimated Average Glucose 151 mg/dl; Hemoglobin A1C 6.9 % (4.5-5.6)
[2021-10-02] MEDS ORDERED: STAT IV STA ×2 (07:47→13:08)
[2021-10-02 07:58] LABS: INR 2.5 (0.9-1.1); Prothrombin Time 25.5 Seconds (9.0-12.0)
[2021-10-02] MEDS ORDERED: CALCIUM GLUCONATE 10% 1,000 MG in DEXTROSE 5% 50 ML IV ONE ×2 (08:00→13:15)
[2021-10-02] MEDS: INSULIN ASPART PER UNIT SC SCH ×4 (08:23→21:38)
[2021-10-02 08:31] LABS: BUN Creatinine Ratio 13.6 (10-20); Calcium 7.6 mg/dl (8.5-10.1); Creatinine Clr Calc Pharmacy 36.2 ml/min; Est GFR (African American) 49.4 ml/min; Est GFR (Non-African American) 42.6 ml/min; Potassium 3.4 mmol/L (3.5-5.1)
--- NOTE | 2021-10-02 12:35 | Gastrointestinal Consultation ---
Date of Consultation October 02, 2021 Assessment & Plan (1) Anemia: (2) Dark stools: Patient is an 86 years old male admitted yesterday for acute confusion, currently resolving. No acute findings on initial work-up including head CT, carotid Dopplers and chest x-ray. He was anemic on presentation and given 1 unit of PRBC transfusion with good response in blood count. He is on Coumadin for Afib, INR not supratherapuetic on presentation. He had been complaining of intermittent dark-colored stools without any johnathan rectal bleeding. History of rectal cancer status postresection, ostomy creation and reversal, chemo and radiation therapies. [facility] sigmoid [facility], internal hemorrhoids. No records of EGD. - PPI IV BID - CL diet today; Keep NPO after midnight - Monitor blood ct and transfusion - Given cardiac comorbidities, and rising Troponin, will request Cardiology eval for EGD risk. If cleared, will discuss possible EGD while inpt Supervising Physician Co-Signing Physician Notes I have personally seen and examined the patient with LEA Fenton on 10/02/21. Her note reflects my exam and findings. I agree with her impression and plan. Cont PPI and follow H/H. Will time EGD as per cardiac status. Darrian Matos M.D. History of Present Illness Reason for Consultation: Evaluation for possible upper GI bleed Requesting Physician: Dr. Alicia Hendrickson Attending Physician: Dr. Darrian Matos History of Present Illness Pt is a 86 yo male w PMHx of Afib on Coumadin, CABG in 2007, CAD s/p TAVR, pacemaker status, LVH, subdural hematoma who presented to the ED yesterday with confusion. Initial work-up with head CT, chest x-ray and carotid Dopplers without acute findings. No other focal deficits. He was noted however that he is anemic, blood count is low with a hemoglobin of 7. He received 1 unit PRBC transfusion overnight with good response of his blood count. INR was 2.5. Noted troponin increasing in the 30s. This morning patient is alert, oriented mostly to self and date. He denies any lightheadedness, dizziness, chest pain, shortness of breath, abdominal pain, nausea or vomiting. He did states that he had seen intermittent dark-colored stools over the last few days. Denies any johnathan rectal bleeding. Denies any uses of iron supplements or Pepto-Bismol. He had a history of rectal cancer, s/p resection, ostomy creation and reversal, chemo and radiation. Last colonoscopy was in 2019 done by [facility] which showed diverticulosis in the sigmoid colon and internal hemorrhoids. We do not have records of previous EGD. Allergies Allergy/AdvReac Type Severity Reaction Status Date / Time No Known Allergies Allergy Mild NONE Verified 10/09/21 12:16 Home Medications Medication Instructions Recorded Confirmed Type finasteride 5 mg tablet 5 mg PO DAILY 01/17/21 10/09/21 History glipizide 10 mg tablet 20 mg PO BID 01/17/21 10/09/21 History metoprolol succinate 50 mg 50 mg PO DAILY 01/17/21 10/09/21 History tablet,extended release 24 hr simvastatin 20 mg tablet 20 mg PO HS 01/17/21 10/09/21 History tamsulosin 0.4 mg capsule 0.4 mg PO DAILY 01/17/21 10/09/21 History cyanocobalamin (vitamin B-12) 5,000 mcg PO DAILY #30 caps 03/22/21 10/09/21 Rx 5,000 mcg capsule furosemide 40 mg tablet 40 mg PO BID #60 tabs 03/22/21 10/09/21 Rx amoxicillin 500 mg tablet 2,000 mg PO ONCE #20 tabs 07/24/21 10/09/21 Rx amlodipine 2.5 mg tablet 5 mg PO DAILY 08/28/21 10/09/21 History warfarin 5 mg tablet 5 mg PO DAILY #100 tabs 09/25/21 10/14/21 Rx triamcinolone acetonide 0.1 % 1 applic topical BID Right Leg 10/01/21 10/09/21 History topical ointment Wound folic acid 1 mg tablet 1 mg PO QAM #30 tabs 10/07/21 10/09/21 Rx Patient History Medical History (Updated 10/21/21 @ 13:03 by Tc Marquez DO) Anticoagulant long-term use BPH w urinary obs/LUTS Chronic heart failure with preserved ejection fraction Colon cancer Coronary artery disease Dark stools Diabetes Hypercholesterolemia Hypertension Lower extremity edema Paroxysmal atrial fibrillation Subdural hematoma Vitamin B12 deficiency (dietary) anemia Surgical History (Updated 10/02/21 @ 17:40 by Scooter Crowley MD) History of heart bypass surgery History of partial colectomy S/P TAVR (transcatheter aortic valve replacement) Status post evacuation of subdural hematoma Family History (Updated 10/01/21 @ 19:42 by Alicia Hendrickson MD) Other Family history non-contributory Social History Smoking Status: Former smoker Tobacco Type: Cigarettes Second Hand Exposure: No; Hx Alcohol Use: No Hx Substance Use: No Preferred Language: [place] Communication Ability: Effective Platform Man Required: No Beliefs That Will Affect Care: None marital status: Current Living Situation: Family Current Living Situation Comment: and Te current occupational status: employed and retired How many Children do You have: 3 Feels Safe at Home: Yes Assistive Devices: Glasses Review of Systems Review of Systems: All systems reviewed & are unremarkable except as noted in HPI & below Physical Exam Constitutional: WD/WN, vitals as above well groomed, cooperative and comfortable Eyes: PERRL, conjunctivae normal, anicteric sclerae ENMT: external ear and nose normal, oropharynx normal Respiratory: Mild crackles noted on bilateral bases. No respiratory distress no use of accessory muscles noted Cardiovascular: RRR, no murmur, no edema Gastrointestinal (Abdomen): normal bowel sounds, soft, nontender, no hepatosplenomegaly Skin: no rashes, warm and dry no jaundice Psychiatric: A+Ox3, euthymic affect Lymphatic: no lymphedema Results & Data ([facility]) Vital Signs (Past 12 Hours) Vital Signs Temp Pulse Pulse Resp BP BP Pulse Ox 10/02/21 11:38 36.5 C 77 20 118/67 96 10/02/21 08:00 10/02/21 08:24 36.6 C 81 20 133/64 94 10/02/21 00:45 36.8 C 118 H 32 H 189/79 H 92 10/02/21 03:05 37.2 C 105 H 18 153/61 H 96 10/02/21 01:58 113 H 20 93 O2 Del Method O2 Flow Rate 10/02/21 11:38 10/02/21 08:00 Nasal Cannula 10/02/21 08:24 10/02/21 00:45 10/02/21 03:05 Nasal Cannula 2 10/02/21 01:58 Nasal Cannula 2
--- NOTE | 2021-10-02 13:01 | Hospitalist Progress Note ---
Date of Service October 02, 2021 Assessment & Plan (1) Confusion: Plan: Acute temporary confusion time frame is difficult to establish as well as length of symptoms as patient still has no recollection of event or why he came to the EMD - DDX: Anemia vs. tia vs. TGA vs. infectious vs. other/aging - improved this morning with increase in hemoglobin counts- he is now able to recall most of events from yesterday and all events overnight- anemia vs. TGA vs. TIA; making anemia likely contributing factor - Continue to follow through hospital stay and following sedation if EGD pursued (2) Anemia: Plan: Acute blood loss anemia - HGB 7.6 with report of dark stools with decreased appetite and without epigastric pain - Likely associated with blood loss from likely UGIB - Continue Protonix - HGB improved following 1 unit PRBC appropriate rise to 8.9- follow in AM - Hold on further transfusions at this time - Hold Warfarin at this time- INR 2.5 Appreciate GI consultation await further risk evaluation by cardiology and NPO after midnight for EGD tomorrow (3) Hypoxia: Plan: Acute event following blood transfusion with CXR with pulmonary edema and in the setting of blood transfusion possible TRALI vs TACO - [place]xo[place] without respiratory failure - he was diuresed x2 since that time and supported with oxygen therapy which has since been weaned off which is more indicative of TACO -await transfusion reaction workup as per Pathology - Intake and output poorly tracked through the PM so un-helpful with total net goal - 40mg Lasix given this morning follow renal function and re-eval (4) Hypocalcemia: Plan: Mild on admission and likely worsened with PRBC infusion - will replace now with 1 GM - If bleeding continues or requires more PRBC administer 1GM (5) Pacemaker: Plan: [employer] Bon[place] XT MRI [id number] Atrial Lead CasureFix Novus MRI Septal Select[employer]ure Appropriate AV sense with appropriate fire and capture of ventricle Miode DDD with mode switch at 171 - Low rate 60 - upper track 130 AT/AF >171 VT >150 (6) Elevated troponin: Plan: Likely demand elevation as asymptomatic and related to his underlying structual heart disease - trend HScTNI - no acute intervention at this time - Continue BB- did not take medications this morning- will give 50mg Metoprolol now - Continue with BP control with amlodipine as hemodynamics allow Downtrend following admission was checked with his hypoxia in the middle of night and uptrended to 37 remains without complaints of chest pain (7) S/P TAVR (transcatheter aortic valve replacement): Plan: performed at [facility] [place] 05/14 - Repeat ECHOs with improvement in aortic valve velocities - Remains on Warfarin with plan of discontinuing this by primary cardiology service ~ November (8) CKD (chronic kidney disease) stage 3, GFR 30-59 ml/min: Plan: Baseline [employer] 1.4-1.6 - stable - diurese as above - down trend following inital diuresis and remains within his baseline - avoid further nephrotoxic medications as able - follow as above (9) CAD (coronary atherosclerotic disease): Plan: CABG 2007 with cath 01/13 severe left main disease with patent grafts - As above- continue with BB and BP control - Trend HScTNI- no acute change (10) Anticoagulant long-term use: Plan: Secondary to Afib- s/p TAVR and DDD pacemaker - plan as above per primary cardiology to discontinue in ~ November - Hold as above - INR remains at 2.5 this morning - consider Vitamin K if desired by GI but will recheck in the AM - HGB level stable (11) HTN (hypertension): Plan: As above (12) DM II (diabetes mellitus, type II), controlled: Plan: Hold oral agents - transistion to Sliding Scale Insulin- Aspart with CF 20 add on carb ratio added 1:10--> decrease to 18/12 - Goal <180 - hypoglycemic protocol -A1C 6.9 -add on Lantus 5 units hs for hyperglycemia (13) Electrolyte abnormality: Plan: Hyponatremic and hypochloremic with edema to bilateral lower extremities- will diurese now with IV lasix and likely repeat if needed - likely hypervolemic hyponatremic complicated by decrease solute intake with decrease oral food intake - NA increase to 133 should continue to increase with diuretics Hypomag- replete with 3 GM IV Magnesium 1.6 as above diarrhea plus decrease food intake - improved to 2.0 iCA 1.15 follow (14) HF (heart failure), diastolic: Plan: Chronic HFpEF will need some IV diuresing as above follow volume status combination of lower extremity edema likely related to low albumin, age, decrease overall function at home - Diurese as above Admission and Anticipated Discharge Date Admission Date: October 01, 2021 Supervising Physician Co-Signing Physician Notes LEA Supervision note: I have not personally seen and examined the patient but did discuss and verified the martinez points of the history and physical along with the plan with LEA fernandez with the following exceptions and/or additions: modifications added as above Subjective HD #1 following admission for weakness and anemia found on admission associated with dark stools. Overnight events noted for concern of respiratory insufficiency following 1 unit of PRBCs, requiring oxygenation and re-dose of diuretics. Patient is currently up in a chair eating his lunch and is not on oxygen therapy. The patient mental status is markedly improved from admission and he is now answering questions appropriately and able more involved in a appropriate conversation and is inquiring about follow up following discharge. Gastroenterology consult appreciated, they have consulted cardiology for evaluation prior to undergoing sedation and possible EGD in the AM. Will transition over from obs to admission He did have transfusion reaction labs sent this morning. Reviewed by pathology consistent with microcytic anemia and without platelet dysfunction. Review of Systems Review of Systems: REVIEW OF SYSTEMS: Constitutional: No fever, sweats or chills Eyes: No diplopia, no worsening or blurred vision ENT: (+) difficulty hearing, no trouble swallowing Respiratory: No cough, sputum, dyspnea at rest or on exertion Cardiovascular: (+) lower extremity edema, No chest pain, tightness or palpitations Abdomen: (+) dark stools- resolving this morning to normal color, No pain, nausea, vomiting, diarrhea or constipation Musculoskeletal: (+) right shoulder joint pain, Neurologic: No weakness, numbness/tingling, or balance problems Psychiatric: No anxiety or depression Skin: (+) bruising Physical Exam Physical Exam: PHYSICAL EXAM: General: awake, alert, no apparent distress, improved cognitive function and interaction this morning Head: Normocephalic, atraumatic ENT: PERRLA, EOMI, no pharyngeal exudate, mucous membranes moist Neuro: AAO x 3, speech clear and appropriate, strength intact bilaterally 5/5, sensation intact and equal all extremities and dermatomes, no pronator drift, Chest: equal rise and fall of the chest, no accessory muscle use, no heaves or thrills, scattered crackles in bases Cardiac: Regular rate and rhythm, telemetry reviewed- V pace, skin warm dry, cap refill <3 seconds, peripheral pulses +2 no JVD, +3 edema to lower feet and ankles : Spontaneously voiding, no pain, no CVA tenderness, Psych: Normal mood and affect Skin: bruising to hands, right rib, and subxiphoid Results & Data Results & Data ([facility]) Vital Signs (Past 12 Hours) Vital Signs Temp Pulse Resp BP Pulse Ox O2 Del Method O2 Flow Rate 10/02/21 11:38 36.5 C 77 20 118/67 96 10/02/21 08:00 Nasal Cannula 10/02/21 08:24 36.6 C 81 20 133/64 94 10/02/21 03:05 37.2 C 105 H 18 153/61 H 96 Nasal Cannula 2 10/02/21 01:58 113 H 20 93 Nasal Cannula 2 Laboratory Results Abnormal lab results 10/01/21 10/01/21 10/01/21 Range/Units 10:14 13:41 16:30 RBC (4.63-6.08) M/uL Hgb (14.0-18.0) g/dl Hct (40.1-51.0) % RDW Std Deviation (36.4-46.3) fL RDW Coeff of Jose A (11.5-14.5) % Plt Count (130-400) K/uL Neut # (Auto) (1.4-6.5) K/uL Lymph # (Auto) (1.2-3.4) K/uL Immature Gran # (Auto) (0.00-0.02) K/uL PT (9.0-12.0) Seconds INR (0.9-1.1) VBG pH (7.36-7.41) Sodium (136-145) mmol/L Potassium (3.5-5.1) mmol/L Creatinine (0.6-1.4) mg/dl Glucose (70-99(Fasting)) mg/dl POC Glucose 246 H (70-99) mg/dl Hemoglobin A1c (4.5-5.6) % Calcium (8.5-10.1) mg/dl Ionized Calcium (1.12-1.32) mmol/L Total Bilirubin (0.2-1.0) mg/dl AST (13-39) U/L Troponin I High Sens 35.7 H (0-20) pg/ml Albumin (3.4-5.0) gm/dl Albumin/Globulin Ratio (0.9-2) Crossmatch See Detail 10/01/21 10/01/21 10/01/21 Range/Units 16:48 16:48 20:27 RBC (4.63-6.08) M/uL Hgb 6.9 L* (14.0-18.0) g/dl Hct (40.1-51.0) % RDW Std Deviation (36.4-46.3) fL RDW Coeff of Jose A (11.5-14.5) % Plt Count (130-400) K/uL Neut # (Auto) (1.4-6.5) K/uL Lymph # (Auto) (1.2-3.4) K/uL Immature Gran # (Auto) (0.00-0.02) K/uL PT (9.0-12.0) Seconds INR (0.9-1.1) VBG pH (7.36-7.41) Sodium 132 L (136-145) mmol/L Potassium (3.5-5.1) mmol/L Creatinine 1.43 H (0.6-1.4) mg/dl Glucose 226 H (70-99(Fasting)) mg/dl POC Glucose 201 H (70-99) mg/dl Hemoglobin A1c (4.5-5.6) % Calcium 7.8 L (8.5-10.1) mg/dl Ionized Calcium (1.12-1.32) mmol/L Total Bilirubin (0.2-1.0) mg/dl AST (13-39) U/L Troponin I High Sens 30.0 H (0-20) pg/ml Albumin (3.4-5.0) gm/dl Albumin/Globulin Ratio (0.9-2) Crossmatch 10/02/21 10/02/21 10/02/21 Range/Units 01:35 01:35 01:35 RBC 3.16 L (4.63-6.08) M/uL Hgb 8.9 L (14.0-18.0) g/dl Hct 27.5 L (40.1-51.0) % RDW Std Deviation 49.8 H (36.4-46.3) fL RDW Coeff of Jose A 15.8 H (11.5-14.5) % Plt Count 95 L (130-400) K/uL Neut # (Auto) 9.39 H (1.4-6.5) K/uL Lymph # (Auto) 0.37 L (1.2-3.4) K/uL Immature Gran # (Auto) 0.06 H (0.00-0.02) K/uL PT 25.8 H (9.0-12.0) Seconds INR 2.5 H (0.9-1.1) VBG pH (7.36-7.41) Sodium 131 L (136-145) mmol/L Potassium (3.5-5.1) mmol/L Creatinine 1.49 H (0.6-1.4) mg/dl Glucose 168 H (70-99(Fasting)) mg/dl POC Glucose (70-99) mg/dl Hemoglobin A1c (4.5-5.6) % Calcium 8.0 L (8.5-10.1) mg/dl Ionized Calcium (1.12-1.32) mmol/L Total Bilirubin 1.4 H (0.2-1.0) mg/dl AST 12 L (13-39) U/L Troponin I High Sens 37.2 H (0-20) pg/ml Albumin 3.1 L (3.4-5.0) gm/dl Albumin/Globulin Ratio 0.8 L (0.9-2) Crossmatch 10/02/21 10/02/21 10/02/21 Range/Units 01:35 01:35 07:20 RBC (4.63-6.08) M/uL Hgb (14.0-18.0) g/dl Hct (40.1-51.0) % RDW Std Deviation (36.4-46.3) fL RDW Coeff of Jose A (11.5-14.5) % Plt Count (130-400) K/uL Neut # (Auto) (1.4-6.5) K/uL Lymph # (Auto) (1.2-3.4) K/uL Immature Gran # (Auto) (0.00-0.02) K/uL PT (9.0-12.0) Seconds INR (0.9-1.1) VBG pH 7.42 H (7.36-7.41) Sodium 133 L (136-145) mmol/L Potassium 3.4 L (3.5-5.1) mmol/L Creatinine 1.47 H (0.6-1.4) mg/dl Glucose 195 H (70-99(Fasting)) mg/dl POC Glucose (70-99) mg/dl Hemoglobin A1c (4.5-5.6) % Calcium 7.6 L (8.5-10.1) mg/dl Ionized Calcium 1.05 L (1.12-1.32) mmol/L Total Bilirubin (0.2-1.0) mg/dl AST (13-39) U/L Troponin I High Sens (0-20) pg/ml Albumin (3.4-5.0) gm/dl Albumin/Globulin Ratio (0.9-2) Crossmatch 10/02/21 10/02/21 10/02/21 Range/Units 07:20 07:20 07:50 RBC (4.63-6.08) M/uL Hgb (14.0-18.0) g/dl Hct (40.1-51.0) % RDW Std Deviation (36.4-46.3) fL RDW Coeff of Jose A (11.5-14.5) % Plt Count (130-400) K/uL Neut # (Auto) (1.4-6.5) K/uL Lymph # (Auto) (1.2-3.4) K/uL Immature Gran # (Auto) (0.00-0.02) K/uL PT 25.5 H (9.0-12.0) Seconds INR 2.5 H (0.9-1.1) VBG pH (7.36-7.41) Sodium (136-145) mmol/L Potassium (3.5-5.1) mmol/L Creatinine (0.6-1.4) mg/dl Glucose (70-99(Fasting)) mg/dl POC Glucose 200 H (70-99) mg/dl Hemoglobin A1c 6.9 H (4.5-5.6) % Calcium (8.5-10.1) mg/dl Ionized Calcium (1.12-1.32) mmol/L Total Bilirubin (0.2-1.0) mg/dl AST (13-39) U/L Troponin I High Sens (0-20) pg/ml Albumin (3.4-5.0) gm/dl Albumin/Globulin Ratio (0.9-2) Crossmatch 10/02/21 Range/Units 11:31 RBC (4.63-6.08) M/uL Hgb (14.0-18.0) g/dl Hct (40.1-51.0) % RDW Std Deviation (36.4-46.3) fL RDW Coeff of Jose A (11.5-14.5) % Plt Count (130-400) K/uL Neut # (Auto) (1.4-6.5) K/uL Lymph # (Auto) (1.2-3.4) K/uL Immature Gran # (Auto) (0.00-0.02) K/uL PT (9.0-12.0) Seconds INR (0.9-1.1) VBG pH (7.36-7.41) Sodium (136-145) mmol/L Potassium (3.5-5.1) mmol/L Creatinine (0.6-1.4) mg/dl Glucose (70-99(Fasting)) mg/dl POC Glucose 195 H (70-99) mg/dl Hemoglobin A1c (4.5-5.6) % Calcium (8.5-10.1) mg/dl Ionized Calcium (1.12-1.32) mmol/L Total Bilirubin (0.2-1.0) mg/dl AST (13-39) U/L Troponin I High Sens (0-20) pg/ml Albumin (3.4-5.0) gm/dl Albumin/Globulin Ratio (0.9-2) Crossmatch Diagnostic Findings Carotid Doppler Study 10/01/21 13:00 US carotid doppler BI CLINICAL HISTORY: tia symptoms. COMPARISON: None. TECHNIQUE: Robertson scale, Doppler spectral analysis, and color imaging was performed. Stenosis assessment by velocity criteria. FINDINGS: Right CCA velocity (cm/s): 67 Right ICA velocity (cm/s): 103 Right ICA/CCA ratio: 1.5 Right vertebral arterial flow: Antegrade. Right findings: There is no significant atherosclerotic plaquing noted on the right. Left CCA velocity (cm/s): 78 Left ICA velocity (cm/s): 83 Left ICA/CCA ratio: 1.1 Left vertebral arterial flow: Antegrade. Left findings: There is no significant atherosclerotic plaquing noted on the left. IMPRESSION: No significant atherosclerotic plaquing or significant flow limiting stenoses noted by velocity criteria bilaterally. ACT 112: Negative or not required by law. Electronically signed by: Chris Schmidt M.D. 10/01/2021 3:11 PM Chest X-Ray 10/02/21 01:17 XR chest 1V portable CLINICAL HISTORY: SOB, increased o2 requirement s/p pRBC transfusion COMPARISON STUDY: Chest radiograph October 01, 2021. FINDINGS: Median sternotomy wires, prosthetic cardiac valve and dual lead left subclavian pacemaker are in place. Old right-sided rib fractures are noted. Healing proximal humeral fracture with callus formation is noted. Cardiomegaly is unchanged. There has been interval development of interstitial thickening and patchy bilateral airspace opacities. No pneumothorax or pleural effusion is noted. IMPRESSION: Cardiomegaly. Interval development of interstitial thickening and bilateral airspace opacities. The findings favor pulmonary edema however transfusion related acute lung injury could appear similar given the clinical history. ACT 112: Negative or not required by law. Electronically signed by: Dominick Helms M.D. 10/02/2021 6:40 AM Medications Administered Home Medications finasteride 5 mg tablet 5 mg PO DAILY 01/17/21 [History Confirmed 10/01/21] glipizide 10 mg tablet 20 mg PO BID 01/17/21 [History Confirmed 10/01/21] metoprolol succinate 50 mg tablet,extended release 24 hr 50 mg PO DAILY 01/17/21 [History Confirmed 10/01/21] simvastatin 20 mg tablet 20 mg PO HS 01/17/21 [History Confirmed 10/01/21] tamsulosin 0.4 mg capsule 0.4 mg PO DAILY 01/17/21 [History Confirmed 10/01/21] cyanocobalamin (vitamin B-12) 5,000 mcg capsule 5,000 mcg PO DAILY #30 caps 03/22/21 [Rx Confirmed 10/01/21] furosemide 40 mg tablet 40 mg PO BID #60 tabs 03/22/21 [Rx Confirmed 10/01/21] amoxicillin 500 mg tablet 2,000 mg PO ONCE #20 tabs 07/24/21 [Rx Confirmed 10/01/21] amlodipine 2.5 mg tablet 5 mg PO DAILY 08/28/21 [History Confirmed 10/01/21] warfarin 5 mg tablet 5 mg PO DAILY #100 tabs 09/25/21 [Rx Confirmed 10/01/21] triamcinolone acetonide 0.1 % topical ointment 1 applic topical BID Right Leg Wound 10/01/21 [History Confirmed 10/01/21] Active Medications Acetaminophen (Acetaminophen 325 Mg Tab) 650 mg PO Q4H PRN PRN Reason: Pain or Fever Stop: 10/31/21 12:59 Amlodipine Besylate (Amlodipine Besylate 5 Mg Tab) 5 mg PO DAILY GEETA Stop: 10/31/21 12:59 Last Admin: 10/02/21 07:14 Dose: 5 mg Dextrose (Dextrose 50% 50 Ml Syringe) 25 - 50 ml IV UD PRN; Protocol PRN Reason: Hypoglycemia Protocol Stop: 10/31/21 12:59 Finasteride (Finasteride 5 Mg Tab) 5 mg PO DAILY GEETA Stop: 11/01/21 08:59 Last Admin: 10/02/21 07:14 Dose: 5 mg Glucagon (Glucagon For Inj 1 Mg Vial) 1 mg SQ UD PRN; Protocol PRN Reason: Hypoglycemia Protocol Stop: 10/31/21 12:59 Glucose (Glucose 40% Gel 15 Gm Tube) 15 - 30 gm PO UD PRN; Protocol PRN Reason: Hypoglycemia Protocol Stop: 10/31/21 12:59 Glucose (Glucose 10 Tab/Tube) 4 - 8 tab PO UD PRN; Protocol PRN Reason: Hypoglycemia Treatment Stop: 10/31/21 12:59 Pantoprazole Sodium 40 mg/ (Syringe) 10 mls @ 5 mls/min IV BID GEETA Stop: 10/31/21 20:59 Last Admin: 10/02/21 07:14 Dose: 5 mls/min Calcium Gluconate 1,000 mg/ (Dextrose) 60 mls @ 240 mls/hr IV NOW ONE Stop: 10/02/21 13:22 Insulin Aspart (Insulin Aspart Per Unit) 0 units SC ACHS GEETA Stop: 10/31/21 12:59 Last Admin: 10/02/21 12:17 Dose: 3 units Metoprolol Succinate (Metoprolol Succ 50mg Ext Rel Tab) 50 mg PO DAILY GEETA Stop: 11/01/21 08:59 Last Admin: 10/02/21 07:14 Dose: 50 mg Miscellaneous (Carbohydrates For Hypoglycemia ) 15 - 30 gm PO UD PRN PRN Reason: Hypoglycemia Protocol Stop: 10/31/21 12:59 Miscellaneous (Stat Iv) 1 each N/A NOW STA Stop: 10/02/21 13:09 Simvastatin (Simvastatin 20 Mg Tab) 20 mg PO HS GEETA Stop: 10/31/21 20:59 Last Admin: 10/01/21 22:00 Dose: 20 mg Triamcinolone Acetonide (Triamcinolone Acet 0.1% Oint 15 Gm Tube) 1 appln TOP BID GEETA Stop: 10/31/21 20:59 Last Admin: 10/02/21 07:14 Dose: Not Given PG Care Time/CCT Total # of Minutes Spent Total Time Spent with Patient: Total time spent is greater than 50% in coordination of care (as documented) at patient's floor/unit and/or counseling patient: Coding Level of Care Code 41969 Subseq Hosp Care Lvl 3 Diagnoses Confusion R41.0 Anemia D64.9 Hypoxia R09.02 Hypocalcemia E83.51 Pacemaker Z95.0 Elevated troponin R77.8 S/P TAVR (transcatheter aortic valve replacement) Z95.2 CKD (chronic kidney disease) stage 3, GFR 30-59 ml/min N18.30 CAD (coronary atherosclerotic disease) I25.810 Associated angina: unspecified whether angina present Coronary Disease-Associated Artery/Lesion type: bypass graft [place] vs. transplanted heart: [place] heart Anticoagulant long-term use Z79.01 HTN (hypertension) I10 DM II (diabetes mellitus, type II), controlled E11.9 Electrolyte abnormality E87.8 HF (heart failure), diastolic I50.30 (1) CAD (coronary atherosclerotic disease) Associated angina: unspecified whether angina present Coronary Disease- Associated Artery/Lesion type: bypass graft [place] vs. transplanted heart: [place] heart Qualified Code(s): I25.810 - Atherosclerosis of coronary artery bypass graft(s) without angina pectoris
[2021-10-02 13:36] LABS: Blood Urine 1+ (Negative); RBC Urine Automated 0-4 /hpf (0-4)
--- NOTE | 2021-10-02 17:09 | Cardiology Consultation ---
Date of Consultation October 02, 2021 Assessment & Plan (1) Paroxysmal atrial fibrillation: (2) Chronic heart failure with preserved ejection fraction: (3) S/P TAVR (transcatheter aortic valve replacement): (4) Anticoagulant long-term use: (5) Pacemaker: (6) Elevated troponin: (7) CHB (complete heart block): (8) Coronary artery disease: (9) History of heart bypass surgery: Plan ASSESSMENT/PLAN: 1. Chronic heart failure with preserved EF: He does not appear to be signifi cantly hypervolemic. Will resume home dose of Lasix 40 mg p.o. b.i.d.. Low- sodium diet. Monitor eyes and nose. Daily weights. 2. CAD s/p CABG: No angina. Did not present with acute coronary syndrome. Here with anemia felt to be due to GI blood loss. Typically on anticoagulation therapy. Continue beta-mingo. Continue statin therapy. 3. Aortic stenosis s/p TAVR: Most recent echo at [facility] in August reported elevated transvalvular gradient/velocity. It was recommended by Interventional Cardiology [facility] to continue warfarin for at least 3 months, however long-term anticoagulation therapy is warranted. Anticoagulation therapy currently held due to GI blood loss anemia. SBE prophylaxis with dental procedures. 4. Paroxysmal atrial fibrillation: Continue beta-mingo for rate control strategy. Elevated stroke risk and therefore anticoagulation for stroke risk reduction is indicated however here with anemia felt to be due to GI blood loss. If after EGD/GI evaluation, it is felt safe to resume anticoagulation therapy, would do so if no contraindication. If not felt reasonably safe to do so, would have to tolerate increased stroke risk or consider possibility of Watchman gregg ce. 5. Complete heart block s/p dual chamber pacemaker: Follows with electrophysiology. 6. Elevated troponin: Likely due to demand ischemia in the setting of significant anemia and underlying CAD. He did not present with acute coronary syndrome and troponin has been relatively flat. No ischemic evaluation necessary. 7. Anemia: Presumed GI blood loss with dark stools. Has received PRBC tra nsfusion. As per GI. 8. Disposition: Patient acceptable risk from a cardiac perspective to undergo EGD. No further cardiology testing necessary at this time. Please call with any questions or concerns. Patient care communicated with Dr. Hendrickson of the primary hospitalist service. Thank you for allowing me to participate in the care of your patient. Please call for any other questions or concerns. Sincerely, Arie Crowley M.D. History of Present Illness Reason for Consultation: Cardiac preop evaluation and elevated troponin Requesting Physician: Destiny Brand Attending Physician: Alicia Hendrickson MD History of Present Illness Mr. Parker is a very pleasant 86-year-old gentleman with a history significant for CAD s/p CABG x 2 (2007), aortic stenosis s/p TAVR, heart failure with preserved EF, paroxysmal atrial fibrillation, complete heart block s/p dual chamber pacemaker, hypertension, dyslipidemia, CKD, type 2 diabetes and colorectal cancer s/p resection/chemotherapy/XRT. His primary medical record consultant is Dr. Rodriguez. Cardiology was asked to evaluate Mr. Parker in anticipation of EGD for anemia and concern for GI blood loss. He was admitted on 10/01/2021 after presenting with weakness, confusion, and feeling shaky. He denies chest pain, shortness of breath, syncope, near- syncope, palpitations. He has chronic lower extremity edema although the left lower extremity may be a bit more edematous than usual per his son. His right lower extremity is chronically swollen following colorectal surgery. He was noted to have hemoglobin as low as 6.9 and had reported dark stools with decreased appetite. He underwent transfusion of PRBC x1 and then developed hypoxia acutely following blood transfusion. He was felt to have transfusion reaction. He was given diuretic therapy and fortunately hypoxia resolved. He feels like he is back to his baseline currently. His son is present at the bedside and agrees that his confusion has resolved. He was last seen in the cardiology office on 08/28/2021 for preoperative cardiac assessment for potential right humerus fracture surgery. Ultimately, he had orthopedic surgery decided to conservatively manage his tumor is fracture. He has had the following studies/procedures: 1. Cardiac catheterization 01/21/2021: CLEARY to LAD patent. SVG to OM patent. Mid LAD 100%. Co dominant system. 2. TAVR 04/23/21 at [facility]: 29 mm Ayers Eunice. 3. Echo 08/27/2021: Normal LV systolic function. EF 65%. Normal wall motion. Mild to moderate concentric LVH. biatrial dilation. TAVR with elevated trans valvular velocity and gradient, with leaflets reported as opening well on visual inspection. Moderate mitral stenosis (mean grad 9). Mild to moderate MR. Mild to moderate TR. PASP 46. Review of systems: As above. Review of systems otherwise negative/unremarkable. Family history: No known premature CAD. Social history: Quit smoking. No significant alcohol consumption. Lives at home with his and son. His son was present at the bedside. Allergies Allergy/AdvReac Type Severity Reaction Status Date / Time No Known Allergies Allergy Mild NONE Verified 08/28/21 08:38 Home Medications Medication Instructions Recorded Confirmed Type finasteride 5 mg tablet 5 mg PO DAILY 01/17/21 10/01/21 History glipizide 10 mg tablet 20 mg PO BID 01/17/21 10/01/21 History metoprolol succinate 50 mg 50 mg PO DAILY 01/17/21 10/01/21 History tablet,extended release 24 hr simvastatin 20 mg tablet 20 mg PO HS 01/17/21 10/01/21 History tamsulosin 0.4 mg capsule 0.4 mg PO DAILY 01/17/21 10/01/21 History cyanocobalamin (vitamin B-12) 5,000 mcg PO DAILY #30 caps 03/22/21 10/01/21 Rx 5,000 mcg capsule furosemide 40 mg tablet 40 mg PO BID #60 tabs 03/22/21 10/01/21 Rx amoxicillin 500 mg tablet 2,000 mg PO ONCE #20 tabs 07/24/21 10/01/21 Rx amlodipine 2.5 mg tablet 5 mg PO DAILY 08/28/21 10/01/21 History warfarin 5 mg tablet 5 mg PO DAILY #100 tabs 09/25/21 10/01/21 Rx triamcinolone acetonide 0.1 % 1 applic topical BID Right Leg 10/01/21 10/01/21 History topical ointment Wound Patient History Medical History (Updated 10/02/21 @ 17:40 by Scooter Crowley MD) Anticoagulant long-term use BPH w urinary obs/LUTS Chronic heart failure with preserved ejection fraction Colon cancer Coronary artery disease Diabetes Hypercholesterolemia Hypertension Lower extremity edema Paroxysmal atrial fibrillation Subdural hematoma Surgical History (Updated 10/02/21 @ 17:40 by Scooter Crowley MD) History of heart bypass surgery History of partial colectomy S/P TAVR (transcatheter aortic valve replacement) Status post evacuation of subdural hematoma Family History (Updated 10/01/21 @ 19:42 by Alicia Hendrickson MD) Other Family history non-contributory Social History Smoking Status: Former smoker Tobacco Type: Cigarettes Second Hand Exposure: No; Do You Dip or Chew Tobacco: No; Tobacco Cessation Education Requested by Patient: No Hx Alcohol Use: No Hx Substance Use: No Preferred Language: Thai Communication Ability: Effective Netsuite Developer Required: No Beliefs That Will Affect Care: None marital status: Current Living Situation: Family Current Living Situation Comment: and Te current occupational status: employed and retired How many Children do You have: 3 Other Information That Helps Us Care for You: No Feels Safe at Home: Yes Safety Concerns: Feels Safe At This Time Assistive Devices: Glasses Physical Exam Physical Exam: Gen.: No acute distress. Alert. HEENT: Anicteric sclera. Neck: No JVD. Mild carotid bruit versus radiation of cardiac murmur. Normal carotid upstrokes bilaterally. Cardiac: No ventricular heave. Regular. Normal S1-S2. 1/6 systolic ejection murmur. No rubs or gallops. Pulmonary: Clear to auscultation bilaterally without wheezes, rales, or rhonchi. Abdomen: Soft, nontender, nondistended, with normoactive bowel sounds. No bruits noted. Extremities: 2+ radial pulses bilaterally. 2+ posterior tibialis pulses bilaterally. 1+ bilateral lower extremity edema. No cyanosis. Psychiatric: Affect appears appropriate. Results & Data ([facility]) Vital Signs (Past 12 Hours) Vital Signs Temp Pulse Resp BP Pulse Ox O2 Del Method 10/02/21 15:22 36.3 C L 70 20 111/67 97 10/02/21 11:38 36.5 C 77 20 118/67 96 10/02/21 08:00 Nasal Cannula 10/02/21 08:24 36.6 C 81 20 133/64 94 Intake & Output 09/30/21 10/01/21 10/02/21 10/03/21 06:59 06:59 06:59 06:59 Intake Total 100 / 100 350 / 350 120 / 120 Output Total 225 / 225 300 / 300 Balance 100 / 100 125 / 125 -180 / -180 Weight 188 lb 4.396 oz 180 lb 8.937 oz Laboratory Results Laboratory Results - last 24 hr 10/01/21 10/01/21 10/01/21 10:14 16:48 18:36 WBC RBC Hgb Hct MCV MCH MCHC RDW Std Deviation RDW Coeff of Jose A Plt Count MPV Immature Gran % (Auto) Neut % (Auto) Lymph % (Auto) [place] % (Auto) Eos % (Auto) Baso % (Auto) Neut # (Auto) Lymph # (Auto) [place] # (Auto) Eos # (Auto) Baso # (Auto) Immature Gran # (Auto) Absolute Nucleated RBC Nucleated RBC % (auto) Neutrophils % (Manual) Band Neutrophils % Lymphocytes % (Manual) Prolymphocyte % Reactive Lymphs % (Man) Monocytes % (Manual) Eosinophils % (Manual) Basophils % (Manual) Metamyelocytes % (Man) Myelocytes % (Man) Promyelocytes % (Man) Blast Cells % (Manual) Plasma Cell % (Manual) Other Cells % Nucleated RBC % Neutrophils # (Manual) Band Neutrophils # Total Absolute Neuts Lymphocytes # (Manual) Prolymphocyte # Reactive Lymphs # Total Abs Lymphocytes Monocytes # (Manual) Eosinophils # (Manual) Basophils # (Manual) Metamyelocytes # (Man) Myelocytes # (Manual) Promyelocytes # (Man) Blast Cells # (Man) Plasma Cell # (Manual) Other Cells # Nucleated RBCs # (Man) Hypersegmented Neuts Hyposegmented Neuts Hypogranular Neuts Large Granular Lymphs # Lrg Granular Lymphs Hairy Cells Smudge Cells Toxic Granulation Toxic Vacuolation Dohle Bodies Yamila Rods Platelet Estimate Hypogranular Platelets Clumped Platelets Giant Platelets Platelet Satelliting RBC Morphology Polychromasia Hypochromasia Poikilocytosis Basophilic Stippling Anisocytosis Microcytosis Macrocytosis Spherocytes Pappenheimer Bodies Sickle Cells Target Cells Tear Drop Cells Ovalocytes Stomatocytes [place] Bodies Echinocytes Acanthocytes (Spur) Rouleaux RBC Agglutinates Schistocytes Peripher Smr Path Cons Sezary Cell PT INR VBG pH VBG pCO2 VBG pO2 VBG HCO3 VBG O2 Saturation VBG Base Excess Sodium 132 L Potassium 3.7 Chloride 99 Carbon Dioxide 26 Anion Gap 7 BUN 21 Creatinine 1.43 H Est Cr Clr Drug Dosing 38.0 Est GFR ( Amer) 51.0 Est GFR (Non-Af Amer) 44.0 BUN/Creatinine Ratio 14.7 Glucose 226 H POC Glucose Estimat Average Glucose Hemoglobin A1c Calcium 7.8 L Ionized Calcium Phosphorus Magnesium Total Bilirubin AST ALT Alkaline Phosphatase Troponin I High Sens 30.0 H Total Protein Albumin Globulin Albumin/Globulin Ratio Procalcitonin Urine Blood Urine RBC (Auto) Blood Parasites ID Blood Type B Positive Blood Type Recheck B Positive Antibody Screen NEGATIVE Crossmatch See Detail Transfusion React Date Transfusion React Time Tx React Symptoms Reaction Clerical Check Lab Clerical Err Check React Component Return Volume Returned Pre-Trans Blood Type Pre-Trans Vis Hemolysis Pre-Trans EVANS Pre-Trans EVANS IgG Pre-Trans EVANS Poly Pre-Trans EVANS C3b, C3d Post-Trans Blood Type Post-Tx Visible Hemolys Post-Trans EVANS Post-Trans EVANS IgG Post-Trans EVANS Poly Post-Trans EVANS C3b, C3d Post-Trans Ur Hemoglobin Reaction Path Interpret Transfusion Serv Com 10/01/21 10/02/21 10/02/21 20:27 01:25 01:35 WBC Cancelled 10.25 RBC Cancelled 3.16 L Hgb Cancelled 8.9 L Hct Cancelled 27.5 L MCV Cancelled 87.0 MCH Cancelled 28.2 MCHC Cancelled 32.4 RDW Std Deviation Cancelled 49.8 H RDW Coeff of Jose A Cancelled 15.8 H Plt Count Cancelled 95 L MPV Cancelled 10.9 Immature Gran % (Auto) Cancelled 0.6 Neut % (Auto) Cancelled 91.6 Lymph % (Auto) Cancelled 3.6 [place] % (Auto) Cancelled 3.9 Eos % (Auto) Cancelled 0.1 Baso % (Auto) Cancelled 0.2 Neut # (Auto) Cancelled 9.39 H Lymph # (Auto) Cancelled 0.37 L [place] # (Auto) Cancelled 0.40 Eos # (Auto) Cancelled 0.01 Baso # (Auto) Cancelled 0.02 Immature Gran # (Auto) Cancelled 0.06 H Absolute Nucleated RBC Cancelled Nucleated RBC % (auto) Cancelled Neutrophils % (Manual) Cancelled Band Neutrophils % Cancelled Lymphocytes % (Manual) Cancelled Prolymphocyte % Cancelled Reactive Lymphs % (Man) Cancelled Monocytes % (Manual) Cancelled Eosinophils % (Manual) Cancelled Basophils % (Manual) Cancelled Metamyelocytes % (Man) Cancelled Myelocytes % (Man) Cancelled Promyelocytes % (Man) Cancelled Blast Cells % (Manual) Cancelled Plasma Cell % (Manual) Cancelled Other Cells % Cancelled Nucleated RBC % Cancelled Neutrophils # (Manual) Cancelled Band Neutrophils # Cancelled Total Absolute Neuts Cancelled Lymphocytes # (Manual) Cancelled Prolymphocyte # Cancelled Reactive Lymphs # Cancelled Total Abs Lymphocytes Cancelled Monocytes # (Manual) Cancelled Eosinophils # (Manual) Cancelled Basophils # (Manual) Cancelled Metamyelocytes # (Man) Cancelled Myelocytes # (Manual) Cancelled Promyelocytes # (Man) Cancelled Blast Cells # (Man) Cancelled Plasma Cell # (Manual) Cancelled Other Cells # Cancelled Nucleated RBCs # (Man) Cancelled Hypersegmented Neuts Cancelled Hyposegmented Neuts Cancelled Hypogranular Neuts Cancelled Large Granular Lymphs Cancelled # Lrg Granular Lymphs Cancelled Hairy Cells Cancelled Smudge Cells Cancelled Toxic Granulation Cancelled Toxic Vacuolation Cancelled Dohle Bodies Cancelled Yamila Rods Cancelled Platelet Estimate Cancelled Hypogranular Platelets Cancelled Clumped Platelets Cancelled Giant Platelets Cancelled Platelet Satelliting Cancelled RBC Morphology Cancelled Polychromasia Cancelled Hypochromasia Cancelled Poikilocytosis Cancelled Basophilic Stippling Cancelled Anisocytosis Cancelled Microcytosis Cancelled Macrocytosis Cancelled Spherocytes Cancelled Pappenheimer Bodies Cancelled Sickle Cells Cancelled Target Cells Cancelled Tear Drop Cells Cancelled Ovalocytes Cancelled Stomatocytes Cancelled [place] Bodies Cancelled Echinocytes Cancelled Acanthocytes (Spur) Cancelled Rouleaux Cancelled RBC Agglutinates Cancelled Schistocytes Cancelled Peripher Smr Path Cons Sezary Cell Cancelled PT INR VBG pH VBG pCO2 VBG pO2 VBG HCO3 VBG O2 Saturation VBG Base Excess Sodium Potassium Chloride Carbon Dioxide Anion Gap BUN Creatinine Est Cr Clr Drug Dosing Est GFR ( Amer) Est GFR (Non-Af Amer) BUN/Creatinine Ratio Glucose POC Glucose 201 H Estimat Average Glucose Hemoglobin A1c Calcium Ionized Calcium Phosphorus Magnesium Total Bilirubin AST ALT Alkaline Phosphatase Troponin I High Sens Total Protein Albumin Globulin Albumin/Globulin Ratio Procalcitonin Urine Blood Urine RBC (Auto) Blood Parasites ID Cancelled Blood Type Blood Type Recheck Antibody Screen Crossmatch Transfusion React Date Transfusion React Time Tx React Symptoms Reaction Clerical Check Lab Clerical Err Check React Component Return Volume Returned Pre-Trans Blood Type Pre-Trans Vis Hemolysis Pre-Trans EVANS Pre-Trans EVANS IgG Pre-Trans EVANS Poly Pre-Trans EVANS C3b, C3d Post-Trans Blood Type Post-Tx Visible Hemolys Post-Trans EVANS Post-Trans EVANS IgG Post-Trans EVANS Poly Post-Trans EVANS C3b, C3d Post-Trans Ur Hemoglobin Reaction Path Interpret Transfusion Serv Com 10/02/21 10/02/21 10/02/21 01:35 01:35 01:35 WBC RBC Hgb Hct MCV MCH MCHC RDW Std Deviation RDW Coeff of Jose A Plt Count MPV Immature Gran % (Auto) Neut % (Auto) Lymph % (Auto) [place] % (Auto) Eos % (Auto) Baso % (Auto) Neut # (Auto) Lymph # (Auto) [place] # (Auto) Eos # (Auto) Baso # (Auto) Immature Gran # (Auto) Absolute Nucleated RBC Nucleated RBC % (auto) Neutrophils % (Manual) Band Neutrophils % Lymphocytes % (Manual) Prolymphocyte % Reactive Lymphs % (Man) Monocytes % (Manual) Eosinophils % (Manual) Basophils % (Manual) Metamyelocytes % (Man) Myelocytes % (Man) Promyelocytes % (Man) Blast Cells % (Manual) Plasma Cell % (Manual) Other Cells % Nucleated RBC % Neutrophils # (Manual) Band Neutrophils # Total Absolute Neuts Lymphocytes # (Manual) Prolymphocyte # Reactive Lymphs # Total Abs Lymphocytes Monocytes # (Manual) Eosinophils # (Manual) Basophils # (Manual) Metamyelocytes # (Man) Myelocytes # (Manual) Promyelocytes # (Man) Blast Cells # (Man) Plasma Cell # (Manual) Other Cells # Nucleated RBCs # (Man) Hypersegmented Neuts Hyposegmented Neuts Hypogranular Neuts Large Granular Lymphs # Lrg Granular Lymphs Hairy Cells Smudge Cells Toxic Granulation Toxic Vacuolation Dohle Bodies Yamila Rods Platelet Estimate Hypogranular Platelets Clumped Platelets Giant Platelets Platelet Satelliting RBC Morphology Polychromasia Hypochromasia Poikilocytosis Basophilic Stippling Anisocytosis Microcytosis Macrocytosis Spherocytes Pappenheimer Bodies Sickle Cells Target Cells Tear Drop Cells Ovalocytes Stomatocytes [place] Bodies Echinocytes Acanthocytes (Spur) Rouleaux RBC Agglutinates Schistocytes Peripher Smr Path Cons Sezary Cell PT 25.8 H INR 2.5 H VBG pH 7.42 H VBG pCO2 40 VBG pO2 18 VBG HCO3 26 VBG O2 Saturation < 60.0 VBG Base Excess 1.3 Sodium 131 L Potassium 3.5 Chloride 98 Carbon Dioxide 24 Anion Gap 9 BUN 19 Creatinine 1.49 H Est Cr Clr Drug Dosing 36.5 Est GFR ( Amer) 48.6 Est GFR (Non-Af Amer) 41.9 BUN/Creatinine Ratio 12.8 Glucose 168 H POC Glucose Estimat Average Glucose Hemoglobin A1c Calcium 8.0 L Ionized Calcium Phosphorus 3.4 Magnesium 2.1 Total Bilirubin 1.4 H AST 12 L ALT 8 Alkaline Phosphatase 91 Troponin I High Sens 37.2 H Total Protein 6.9 Albumin 3.1 L Globulin 3.8 Albumin/Globulin Ratio 0.8 L Procalcitonin Urine Blood Urine RBC (Auto) Blood Parasites ID Blood Type Blood Type Recheck Antibody Screen Crossmatch Transfusion React Date Transfusion React Time Tx React Symptoms Reaction Clerical Check Lab Clerical Err Check React Component Return Volume Returned Pre-Trans Blood Type Pre-Trans Vis Hemolysis Pre-Trans EVANS Pre-Trans EVANS IgG Pre-Trans EVANS Poly Pre-Trans EVANS C3b, C3d Post-Trans Blood Type Post-Tx Visible Hemolys Post-Trans EVANS Post-Trans EVANS IgG Post-Trans EVANS Poly Post-Trans EVANS C3b, C3d Post-Trans Ur Hemoglobin Reaction Path Interpret Transfusion Serv Com 10/02/21 10/02/21 10/02/21 01:35 01:35 01:35 WBC RBC Hgb Hct MCV MCH MCHC RDW Std Deviation RDW Coeff of Jose A Plt Count MPV Immature Gran % (Auto) Neut % (Auto) Lymph % (Auto) [place] % (Auto) Eos % (Auto) Baso % (Auto) Neut # (Auto) Lymph # (Auto) [place] # (Auto) Eos # (Auto) Baso # (Auto) Immature Gran # (Auto) Absolute Nucleated RBC Nucleated RBC % (auto) Neutrophils % (Manual) Band Neutrophils % Lymphocytes % (Manual) Prolymphocyte % Reactive Lymphs % (Man) Monocytes % (Manual) Eosinophils % (Manual) Basophils % (Manual) Metamyelocytes % (Man) Myelocytes % (Man) Promyelocytes % (Man) Blast Cells % (Manual) Plasma Cell % (Manual) Other Cells % Nucleated RBC % Neutrophils # (Manual) Band Neutrophils # Total Absolute Neuts Lymphocytes # (Manual) Prolymphocyte # Reactive Lymphs # Total Abs Lymphocytes Monocytes # (Manual) Eosinophils # (Manual) Basophils # (Manual) Metamyelocytes # (Man) Myelocytes # (Manual) Promyelocytes # (Man) Blast Cells # (Man) Plasma Cell # (Manual) Other Cells # Nucleated RBCs # (Man) Hypersegmented Neuts Hyposegmented Neuts Hypogranular Neuts Large Granular Lymphs # Lrg Granular Lymphs Hairy Cells Smudge Cells Toxic Granulation Toxic Vacuolation Dohle Bodies Yamila Rods Platelet Estimate Hypogranular Platelets Clumped Platelets Giant Platelets Platelet Satelliting RBC Morphology Polychromasia Hypochromasia Poikilocytosis Basophilic Stippling Anisocytosis Microcytosis Macrocytosis Spherocytes Pappenheimer Bodies Sickle Cells Target Cells Tear Drop Cells Ovalocytes Stomatocytes [place] Bodies Echinocytes Acanthocytes (Spur) Rouleaux RBC Agglutinates Schistocytes Peripher Smr Path Cons Sezary Cell PT INR VBG pH VBG pCO2 VBG pO2 VBG HCO3 VBG O2 Saturation VBG Base Excess Sodium Potassium Chloride Carbon Dioxide Anion Gap BUN Creatinine Est Cr Clr Drug Dosing Est GFR ( Amer) Est GFR (Non-Af Amer) BUN/Creatinine Ratio Glucose POC Glucose Estimat Average Glucose Hemoglobin A1c Calcium Ionized Calcium 1.05 L Phosphorus Magnesium Total Bilirubin AST ALT Alkaline Phosphatase Troponin I High Sens Total Protein Albumin Globulin Albumin/Globulin Ratio Procalcitonin 0.25 Urine Blood Urine RBC (Auto) Blood Parasites ID Blood Type Blood Type Recheck Antibody Screen Crossmatch Transfusion React Date 10/02/2021 Transfusion React Time Tx React Symptoms Reaction Clerical Check None Found Lab Clerical Err Check None Found React Component Return PCLR Volume Returned 0 Pre-Trans Blood Type B POSITIVE Pre-Trans Vis Hemolysis No Pre-Trans EVANS Negative Pre-Trans EVANS IgG Neg Pre-Trans EVANS Poly Neg Pre-Trans EVANS C3b, C3d Neg Post-Trans Blood Type B POSITIVE Post-Tx Visible Hemolys No Post-Trans EVANS Negative Post-Trans EVANS IgG Neg Post-Trans EVANS Poly Neg Post-Trans EVANS C3b, C3d Neg Post-Trans Ur Hemoglobin Reaction Path Interpret Transfusion Serv Com 10/02/21 10/02/21 10/02/21 07:20 07:20 07:20 WBC RBC Hgb Hct MCV MCH MCHC RDW Std Deviation RDW Coeff of Jose A Plt Count MPV Immature Gran % (Auto) Neut % (Auto) Lymph % (Auto) [place] % (Auto) Eos % (Auto) Baso % (Auto) Neut # (Auto) Lymph # (Auto) [place] # (Auto) Eos # (Auto) Baso # (Auto) Immature Gran # (Auto) Absolute Nucleated RBC Nucleated RBC % (auto) Neutrophils % (Manual) Band Neutrophils % Lymphocytes % (Manual) Prolymphocyte % Reactive Lymphs % (Man) Monocytes % (Manual) Eosinophils % (Manual) Basophils % (Manual) Metamyelocytes % (Man) Myelocytes % (Man) Promyelocytes % (Man) Blast Cells % (Manual) Plasma Cell % (Manual) Other Cells % Nucleated RBC % Neutrophils # (Manual) Band Neutrophils # Total Absolute Neuts Lymphocytes # (Manual) Prolymphocyte # Reactive Lymphs # Total Abs Lymphocytes Monocytes # (Manual) Eosinophils # (Manual) Basophils # (Manual) Metamyelocytes # (Man) Myelocytes # (Manual) Promyelocytes # (Man) Blast Cells # (Man) Plasma Cell # (Manual) Other Cells # Nucleated RBCs # (Man) Hypersegmented Neuts Hyposegmented Neuts Hypogranular Neuts Large Granular Lymphs # Lrg Granular Lymphs Hairy Cells Smudge Cells Toxic Granulation Toxic Vacuolation Dohle Bodies Yamila Rods Platelet Estimate Hypogranular Platelets Clumped Platelets Giant Platelets Platelet Satelliting RBC Morphology Polychromasia Hypochromasia Poikilocytosis Basophilic Stippling Anisocytosis Microcytosis Macrocytosis Spherocytes Pappenheimer Bodies Sickle Cells Target Cells Tear Drop Cells Ovalocytes Stomatocytes [place] Bodies Echinocytes Acanthocytes (Spur) Rouleaux RBC Agglutinates Schistocytes Peripher Smr Path Cons Sezary Cell PT 25.5 H INR 2.5 H VBG pH VBG pCO2 VBG pO2 VBG HCO3 VBG O2 Saturation VBG Base Excess Sodium 133 L Potassium 3.4 L Chloride 98 Carbon Dioxide 25 Anion Gap 10 BUN 20 Creatinine 1.47 H Est Cr Clr Drug Dosing 36.2 Est GFR ( Amer) 49.4 Est GFR (Non-Af Amer) 42.6 BUN/Creatinine Ratio 13.6 Glucose 195 H POC Glucose Estimat Average Glucose 151 Hemoglobin A1c 6.9 H Calcium 7.6 L Ionized Calcium Phosphorus Magnesium 2.0 Total Bilirubin AST ALT Alkaline Phosphatase Troponin I High Sens Total Protein Albumin Globulin Albumin/Globulin Ratio Procalcitonin Urine Blood Urine RBC (Auto) Blood Parasites ID Blood Type Blood Type Recheck Antibody Screen Crossmatch Transfusion React Date Transfusion React Time Tx React Symptoms Reaction Clerical Check Lab Clerical Err Check React Component Return Volume Returned Pre-Trans Blood Type Pre-Trans Vis Hemolysis Pre-Trans EVANS Pre-Trans EVANS IgG Pre-Trans EVANS Poly Pre-Trans EVANS C3b, C3d Post-Trans Blood Type Post-Tx Visible Hemolys Post-Trans EVANS Post-Trans EVANS IgG Post-Trans EVANS Poly Post-Trans EVANS C3b, C3d Post-Trans Ur Hemoglobin Reaction Path Interpret Transfusion Serv Com 10/02/21 10/02/21 10/02/21 07:20 07:50 11:31 WBC RBC Hgb Hct MCV MCH MCHC RDW Std Deviation RDW Coeff of Jose A Plt Count MPV Immature Gran % (Auto) Neut % (Auto) Lymph % (Auto) [place] % (Auto) Eos % (Auto) Baso % (Auto) Neut # (Auto) Lymph # (Auto) [place] # (Auto) Eos # (Auto) Baso # (Auto) Immature Gran # (Auto) Absolute Nucleated RBC Nucleated RBC % (auto) Neutrophils % (Manual) Band Neutrophils % Lymphocytes % (Manual) Prolymphocyte % Reactive Lymphs % (Man) Monocytes % (Manual) Eosinophils % (Manual) Basophils % (Manual) Metamyelocytes % (Man) Myelocytes % (Man) Promyelocytes % (Man) Blast Cells % (Manual) Plasma Cell % (Manual) Other Cells % Nucleated RBC % Neutrophils # (Manual) Band Neutrophils # Total Absolute Neuts Lymphocytes # (Manual) Prolymphocyte # Reactive Lymphs # Total Abs Lymphocytes Monocytes # (Manual) Eosinophils # (Manual) Basophils # (Manual) Metamyelocytes # (Man) Myelocytes # (Manual) Promyelocytes # (Man) Blast Cells # (Man) Plasma Cell # (Manual) Other Cells # Nucleated RBCs # (Man) Hypersegmented Neuts Hyposegmented Neuts Hypogranular Neuts Large Granular Lymphs # Lrg Granular Lymphs Hairy Cells Smudge Cells Toxic Granulation Toxic Vacuolation Dohle Bodies Yamila Rods Platelet Estimate Hypogranular Platelets Clumped Platelets Giant Platelets Platelet Satelliting RBC Morphology Polychromasia Hypochromasia Poikilocytosis Basophilic Stippling Anisocytosis Microcytosis Macrocytosis Spherocytes Pappenheimer Bodies Sickle Cells Target Cells Tear Drop Cells Ovalocytes Stomatocytes [place] Bodies Echinocytes Acanthocytes (Spur) Rouleaux RBC Agglutinates Schistocytes Peripher Smr Path Cons Cancelled Sezary Cell PT INR VBG pH VBG pCO2 VBG pO2 VBG HCO3 VBG O2 Saturation VBG Base Excess Sodium Potassium Chloride Carbon Dioxide Anion Gap BUN Creatinine Est Cr Clr Drug Dosing Est GFR ( Amer) Est GFR (Non-Af Amer) BUN/Creatinine Ratio Glucose POC Glucose 200 H 195 H Estimat Average Glucose Hemoglobin A1c Calcium Ionized Calcium Phosphorus Magnesium Total Bilirubin AST ALT Alkaline Phosphatase Troponin I High Sens Total Protein Albumin Globulin Albumin/Globulin Ratio Procalcitonin Urine Blood Urine RBC (Auto) Blood Parasites ID Blood Type Blood Type Recheck Antibody Screen Crossmatch Transfusion React Date Transfusion React Time Tx React Symptoms Reaction Clerical Check Lab Clerical Err Check React Component Return Volume Returned Pre-Trans Blood Type Pre-Trans Vis Hemolysis Pre-Trans EVANS Pre-Trans EVANS IgG Pre-Trans EVANS Poly Pre-Trans EVANS C3b, C3d Post-Trans Blood Type Post-Tx Visible Hemolys Post-Trans EVANS Post-Trans EVANS IgG Post-Trans EVANS Poly Post-Trans EVANS C3b, C3d Post-Trans Ur Hemoglobin Reaction Path Interpret Transfusion Serv Com 10/02/21 10/02/21 13:00 16:54 WBC RBC Hgb Hct MCV MCH MCHC RDW Std Deviation RDW Coeff of Jose A Plt Count MPV Immature Gran % (Auto) Neut % (Auto) Lymph % (Auto) [place] % (Auto) Eos % (Auto) Baso % (Auto) Neut # (Auto) Lymph # (Auto) [place] # (Auto) Eos # (Auto) Baso # (Auto) Immature Gran # (Auto) Absolute Nucleated RBC Nucleated RBC % (auto) Neutrophils % (Manual) Band Neutrophils % Lymphocytes % (Manual) Prolymphocyte % Reactive Lymphs % (Man) Monocytes % (Manual) Eosinophils % (Manual) Basophils % (Manual) Metamyelocytes % (Man) Myelocytes % (Man) Promyelocytes % (Man) Blast Cells % (Manual) Plasma Cell % (Manual) Other Cells % Nucleated RBC % Neutrophils # (Manual) Band Neutrophils # Total Absolute Neuts Lymphocytes # (Manual) Prolymphocyte # Reactive Lymphs # Total Abs Lymphocytes Monocytes # (Manual) Eosinophils # (Manual) Basophils # (Manual) Metamyelocytes # (Man) Myelocytes # (Manual) Promyelocytes # (Man) Blast Cells # (Man) Plasma Cell # (Manual) Other Cells # Nucleated RBCs # (Man) Hypersegmented Neuts Hyposegmented Neuts Hypogranular Neuts Large Granular Lymphs # Lrg Granular Lymphs Hairy Cells Smudge Cells Toxic Granulation Toxic Vacuolation Dohle Bodies Yamila Rods Platelet Estimate Hypogranular Platelets Clumped Platelets Giant Platelets Platelet Satelliting RBC Morphology Polychromasia Hypochromasia Poikilocytosis Basophilic Stippling Anisocytosis Microcytosis Macrocytosis Spherocytes Pappenheimer Bodies Sickle Cells Target Cells Tear Drop Cells Ovalocytes Stomatocytes [place] Bodies Echinocytes Acanthocytes (Spur) Rouleaux RBC Agglutinates Schistocytes Peripher Smr Path Cons [place] Cell PT INR VBG pH VBG pCO2 VBG pO2 VBG HCO3 VBG O2 Saturation VBG Base Excess Sodium Potassium Chloride Carbon Dioxide Anion Gap BUN Creatinine Est Cr Clr Drug Dosing Est GFR ( Amer) Est GFR (Non-Af Amer) BUN/Creatinine Ratio Glucose POC Glucose 220 H Estimat Average Glucose Hemoglobin A1c Calcium Ionized Calcium Phosphorus Magnesium Total Bilirubin AST ALT Alkaline Phosphatase Troponin I High Sens Total Protein Albumin Globulin Albumin/Globulin Ratio Procalcitonin Urine Blood 1+ H Urine RBC (Auto) 0-4 Blood Parasites ID Blood Type Blood Type Recheck Antibody Screen Crossmatch Transfusion React Date Transfusion React Time Tx React Symptoms Reaction Clerical Check Lab Clerical Err Check React Component Return Volume Returned Pre-Trans Blood Type Pre-Trans Vis Hemolysis Pre-Trans EVANS Pre-Trans EVANS IgG Pre-Trans EVANS Poly Pre-Trans EVANS C3b, C3d Post-Trans Blood Type Post-Tx Visible Hemolys Post-Trans EVANS Post-Trans EVANS IgG Post-Trans EVANS Poly Post-Trans EVANS C3b, C3d Post-Trans Ur Hemoglobin Reaction Path Interpret Transfusion Serv Com Diagnostic Findings Records reviewed including echo report and cath report as noted above in HPI. Telemetry personally reviewed: No arrhythmia. ECG personally reviewed 10/02/2021 at 1:31 a.m.: Atrial sensed and ventricular paced with occasional AV pacing. 112 beats per minute. ECG 10/01/2021 at 4:06 a.m.: Atrial sense ventricular paced 95 beats per minute. Chest x-ray 10/01/2021: No acute chest disease per Radiology. Chest x-ray 10/02/2021: Interval development of interstitial thickening in bilateral airspace opacities. This occurred following blood transfusion as previously documented by hospitalist service. Carotid Doppler study 10/01/2021: No significant plaque or flow limiting stenosis bilaterally per Radiology. Medications Administered Current Inpatient Medications Acetaminophen (Acetaminophen 325 Mg Tab) 650 mg PO Q4H PRN PRN Reason: Pain or Fever Stop: 10/31/21 12:59 Amlodipine Besylate (Amlodipine Besylate 5 Mg Tab) 5 mg PO DAILY GEETA Stop: 10/31/21 12:59 Last Admin: 10/02/21 07:14 Dose: 5 mg Dextrose (Dextrose 50% 50 Ml Syringe) 25 - 50 ml IV UD PRN; Protocol PRN Reason: Hypoglycemia Protocol Stop: 10/31/21 12:59 Finasteride (Finasteride 5 Mg Tab) 5 mg PO DAILY GEETA Stop: 11/01/21 08:59 Last Admin: 10/02/21 07:14 Dose: 5 mg Glucagon (Glucagon For Inj 1 Mg Vial) 1 mg SQ UD PRN; Protocol PRN Reason: Hypoglycemia Protocol Stop: 10/31/21 12:59 Glucose (Glucose 40% Gel 15 Gm Tube) 15 - 30 gm PO UD PRN; Protocol PRN Reason: Hypoglycemia Protocol Stop: 10/31/21 12:59 Glucose (Glucose 10 Tab/Tube) 4 - 8 tab PO UD PRN; Protocol PRN Reason: Hypoglycemia Treatment Stop: 10/31/21 12:59 Pantoprazole Sodium 40 mg/ (Syringe) 10 mls @ 5 mls/min IV BID GEETA Stop: 10/31/21 20:59 Last Admin: 10/02/21 07:14 Dose: 5 mls/min Insulin Aspart (Insulin Aspart Per Unit) 0 units SC ACHS GEETA Stop: 10/31/21 12:59 Last Admin: 10/02/21 17:21 Dose: 7 units Metoprolol Succinate (Metoprolol Succ 50mg Ext Rel Tab) 50 mg PO DAILY GEETA Stop: 11/01/21 08:59 Last Admin: 10/02/21 07:14 Dose: 50 mg Miscellaneous (Carbohydrates For Hypoglycemia ) 15 - 30 gm PO UD PRN PRN Reason: Hypoglycemia Protocol Stop: 10/31/21 12:59 Simvastatin (Simvastatin 20 Mg Tab) 20 mg PO HS GEETA Stop: 10/31/21 20:59 Last Admin: 10/01/21 22:00 Dose: 20 mg Triamcinolone Acetonide (Triamcinolone Acet 0.1% Oint 15 Gm Tube) 1 appln TOP BID GEETA Stop: 10/31/21 20:59 Last Admin: 10/02/21 07:14 Dose: Not Given PG Care Time/CCT Total # of Minutes Spent Total Time Spent with Patient: Total time spent is greater than 50% in coordination of care (as documented) at patient's floor/unit and/or counseling patient: Coding Level of Care Code 00698 Initial Inpt Care Lvl 3 Diagnoses Paroxysmal atrial fibrillation I48.0 Chronic heart failure with preserved ejection fraction I50.32 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
[2021-10-02] MEDS: LANTUS PER UNIT CHARGE SQ SCH (21:38)
[2021-10-02] MEDS: SIMVASTATIN 20 MG TAB PO SCH (21:41)
[2021-10-03 06:25] LABS: Hematocrit (blood only) 26.2 % (40.1-51.0); Hemoglobin 8.5 g/dl (14.0-18.0); Mean Corpuscular Hemoglobin 27.9 pg (25.0-34.0); Mean Corpuscular Hgb Conc 32.4 g/dL (32.0-36.0); Mean Corpuscular Volume 85.9 fL (80.0-100.0); Mean Platelet Volume 10.2 fL (9.4-12.4); Platelet Count 93 K/uL (130-400); RDW Coefficient of Variation 15.8 % (11.5-14.5); RDW Standard Deviation 50.1 fL (36.4-46.3); Red Blood Count 3.05 M/uL (4.63-6.08); White Blood Count 8.88 K/ul (4.8-10.8)
[2021-10-03 06:53] LABS: BUN Creatinine Ratio 13.6 (10-20); Calcium 8.2 mg/dl (8.5-10.1); Creatinine Clr Calc Pharmacy 42.6 ml/min; Est GFR (Non-African American) 51.8 ml/min; Potassium 3.6 mmol/L (3.5-5.1)
[2021-10-03 06:55] LABS: INR 2.2 (0.9-1.1); Prothrombin Time 22.9 Seconds (9.0-12.0)
[2021-10-03 07:05] LABS: Basophils # (auto) 0.01 K/uL (0-0.2); Basophils % (auto) 0.1 %; Eosinophils # (auto) 0.04 K/uL (0-0.50); Eosinophils % (auto) 0.5 %; Immature Granulocytes # (auto) 0.04 K/uL (0.00-0.02); Immature Granulocytes % (auto) 0.5 %; Lymphocytes # (auto) 0.35 K/uL (1.2-3.4); Lymphocytes % (auto) 3.9 %; Monocytes # (auto) 0.28 K/uL (0.24-0.82); Monocytes % (auto) 3.2 %; Neutrophils # (auto) 8.16 K/uL (1.4-6.5); Neutrophils % (auto) 91.8 %
[2021-10-03] MEDS ORDERED: METOPROLOL TARTRATE 1 MG/ML VIAL IV STA (08:10)
[2021-10-03] MEDS: PANTOprazole 40 MG in SYRINGE 0 ML IV SCH ×2 (08:35→21:00)
[2021-10-03] MEDS: TRIAMCINOLONE ACET 0.1% OINT 15 GM TUBE TOP SCH ×2 (08:36→20:59)
[2021-10-03] MEDS: INSULIN ASPART PER UNIT SC SCH ×4 (08:45→21:01)
--- NOTE | 2021-10-03 08:59 | Hospitalist Progress Note ---
Date of Service October 03, 2021 Assessment & Plan (1) Confusion: Plan: Acute temporary confusion time frame is difficult to establish as well as length of symptoms as patient still has no recollection of event or why he came to the EMD - DDX: Anemia vs. tia vs. TGA vs. infectious vs. other/aging - improved this morning with increase in hemoglobin counts- he is now able to recall most of events from yesterday and all events overnight- anemia vs. TGA vs. TIA; making anemia likely contributing factor - Continue to follow through hospital stay and following sedation if EGD pursued - carotid dopplers performed on admission negative - No acute events overnight and no further episodes (2) Anemia: Plan: Acute blood loss anemia - HGB 7.6 with report of dark stools with decreased appetite and without epigastric pain - Likely associated with blood loss from likely UGIB - Continue Protonix - HGB improved following 1 unit PRBC appropriate rise to 8.9- follow in AM - Hold on further transfusions at this time - Hold Warfarin at this time- INR 2.5- 2.2 today - EGD pending - resume diet following - As above likely restart warfarin 10/05 (3) Hypoxia: Plan: Acute event following blood transfusion with CXR with pulmonary edema and in the setting of blood transfusion possible TRALI vs TACO - [place] without respiratory failure - he was diuresed x2 since that time and supported with oxygen therapy which has since been weaned off which is more indicative of TACO -await transfusion reaction workup as per Pathology - Intake and output poorly tracked through the PM so un-helpful with total net goal - 40mg Lasix given this morning follow renal function and re-eval - NC placed overnight and weaned off this morning. As above improved with conservative treatment consistent with TACO - Diurese today following EGD (4) Hypocalcemia: Plan: Mild on admission and likely worsened with PRBC infusion - will replace now with 1 GM - If bleeding continues or requires more PRBC administer 1GM (5) Pacemaker: Plan: Green [employer] Pierre Part XT MRI [id number] placed [id number] Atrial Lead CasureFix Novus MRI Septal SelectSecure Appropriate AV sense with appropriate fire and capture of ventricle Miode DDD with mode switch at 171 - Low rate 60 - upper track 130 AT/AF >171 VT >150 (6) S/P TAVR (transcatheter aortic valve replacement): Plan: performed at [facility] [place] 05/14 - Repeat ECHOs with improvement in aortic valve velocities - Remains on Warfarin with plan of discontinuing this by primary cardiology service ~ November (7) CKD (chronic kidney disease) stage 3, GFR 30-59 ml/min: Plan: Baseline REGISTERED NURSE MATERNITY 1.4-1.6 - stable and down to 1.25 today with diruesing - likely will need either diuretic increased on dc or better adherance to diet with sodium restriction - diurese as above - down trend following initial diuresis and remains within his baseline - avoid further nephrotoxic medications as able - follow as above (8) CAD (coronary atherosclerotic disease): Plan: CABG 2007 with cath 01/13 severe left main disease with patent grafts - As above- continue with BB and BP control - Trend HScTNI- no acute change (9) Anticoagulant long-term use: Plan: Secondary to Afib- s/p TAVR and DDD pacemaker - plan as above per primary cardiology to discontinue in ~ November - Hold as above - INR remains at 2.5 this morning - consider Vitamin K if desired by GI but will recheck in the AM - HGB level stable As above following above Coumadin plan to stop in November with Cardiology- pending the above EGD may discuss if able to d/c earlier (10) HTN (hypertension): Plan: As above (11) DM II (diabetes mellitus, type II), controlled: Plan: Hold oral agents - transistion to Sliding Scale Insulin- Aspart with CF 20 add on carb ratio added 1:10--> decrease to 18/12 - Goal <180 - hypoglycemic protocol -A1C 6.9 -add on Lantus 5 units hs for hyperglycemia (12) Electrolyte abnormality: Plan: Hyponatremic and hypochloremic with edema to bilateral lower extremities- will diurese now with IV lasix and likely repeat if needed - likely hypervolemic hyponatremic complicated by decrease solute intake with decrease oral food intake - NA increase to 133 should continue to increase with diuretics Hypomag- replete with 3 GM IV Magnesium 1.6 as above diarrhea plus decrease food intake - improved to 2.0 iCA 1.15 follow (13) HF (heart failure), diastolic: Plan: Chronic HFpEF will need some IV diuresing as above follow volume status combination of lower extremity edema likely related to low albumin, age, decrease overall function at home - Diurese as above (14) Elevated troponin: Plan: Likely demand elevation as asymptomatic and related to his underlying structural heart disease - trend HScTNI - no acute intervention at this time - Continue BB- did not take medications this morning- will give 50mg Metoprolol now - Continue with BP control with amlodipine as hemodynamics allow Downtrend following admission was checked with his hypoxia in the middle of night and uptrended to 37 remains without complaints of chest pain Resolved Plan Likely able to DC within 24 hours Admission and Anticipated Discharge Date Admission Date: October 02, 2021 Supervising Physician Co-Signing Physician Notes OPTOMETRIC ASSISTANT Supervision note: I have not personally seen and examined the patient and discussed and verified the martinez points of the history and physical along with the plan with LEA abraham with the following exceptions and/or additions:none Subjective HD #2 following admission for weakness and anemia found on admission associated with dark stools. HD #1 had event noted for concern of respiratory insufficiency following 1 unit of PRBCs, requiring oxygenation and re-dose of diuretics- consistent with Pulmonary edema or TACO as this responded conservatively and oxygen requirement is decreased makes TRALI unlikely. No events noted overnight. Cardiology risk evaluation completed, patient remains NPO and likely to proceed with EGD today by GI. HGB level remains stable overnight platelet count 93. Remains with lower leg edema with right leg > left leg remains with INR 2.2 this morning. Will apply ADAM to right leg. Patient is currently up in a chair is not on oxygen therapy. The patient mental status is markedly improved from admission. Review of Systems Review of Systems: REVIEW OF SYSTEMS: Constitutional: No fever, sweats or chills Eyes: No diplopia, no worsening or blurred vision ENT: (+) difficulty hearing, no trouble swallowing Respiratory: No cough, sputum, dyspnea at rest or on exertion Cardiovascular: (+) lower extremity edema, No chest pain, tightness or palpitations Abdomen: (+) dark stools- resolving this morning to normal color, No pain, nausea, vomiting, diarrhea or constipation Musculoskeletal: (+) right shoulder joint pain, Neurologic: No weakness, numbness/tingling, or balance problems Psychiatric: No anxiety or depression Skin: (+) bruising Physical Exam Physical Exam: PHYSICAL EXAM: General: awake, alert, no apparent distress, improved cognitive function and interaction this morning Head: Normocephalic, atraumatic ENT: PERRLA, EOMI, no pharyngeal exudate, mucous membranes moist Neuro: AAO x 3, speech clear and appropriate, strength intact bilaterally 5/5, sensation intact and equal all extremities and dermatomes, no pronator drift, Chest: equal rise and fall of the chest, no accessory muscle use, no heaves or thrills, scattered crackles in bases Cardiac: Regular rate and rhythm, telemetry reviewed- V pace, skin warm dry, cap refill <3 seconds, peripheral pulses +2 no JVD, +3 edema to lower feet and ankles : Spontaneously voiding, no pain, no CVA tenderness, Psych: Normal mood and affect Skin: bruising to hands, right rib, and subxiphoid Results & Data Results & Data ([facility]) Vital Signs (Past 12 Hours) Vital Signs Temp Pulse Pulse Resp BP BP Pulse Ox 10/03/21 08:34 110 H 161/77 H 10/03/21 06:46 36.9 C 110 H 20 161/77 H 90 10/03/21 03:50 36.6 C 90 20 163/67 H 90 10/02/21 23:56 66 10/02/21 23:56 10/02/21 23:42 36.4 C L 72 20 162/64 H 94 O2 Del Method 10/03/21 08:34 10/03/21 06:46 Room Air 10/03/21 03:50 Room Air 10/02/21 23:56 10/02/21 23:56 Room Air 10/02/21 23:42 Room Air Laboratory Results Abnormal lab results 10/01/21 10/02/21 10/02/21 Range/Units 10:14 11:31 13:00 RBC (4.63-6.08) M/uL Hgb (14.0-18.0) g/dl Hct (40.1-51.0) % RDW Std Deviation (36.4-46.3) fL RDW Coeff of Jose A (11.5-14.5) % Plt Count (130-400) K/uL Neut # (Auto) (1.4-6.5) K/uL Lymph # (Auto) (1.2-3.4) K/uL Immature Gran # (Auto) (0.00-0.02) K/uL PT (9.0-12.0) Seconds INR (0.9-1.1) Sodium (136-145) mmol/L Glucose (70-99(Fasting)) mg/dl POC Glucose 195 H (70-99) mg/dl Calcium (8.5-10.1) mg/dl Urine Blood 1+ H (Negative) Crossmatch See Detail 10/02/21 10/02/21 10/03/21 Range/Units 16:54 20:27 05:45 RBC (4.63-6.08) M/uL Hgb (14.0-18.0) g/dl Hct (40.1-51.0) % RDW Std Deviation (36.4-46.3) fL RDW Coeff of Jose A (11.5-14.5) % Plt Count (130-400) K/uL Neut # (Auto) (1.4-6.5) K/uL Lymph # (Auto) (1.2-3.4) K/uL Immature Gran # (Auto) (0.00-0.02) K/uL PT 22.9 H (9.0-12.0) Seconds INR 2.2 H (0.9-1.1) Sodium (136-145) mmol/L Glucose (70-99(Fasting)) mg/dl POC Glucose 220 H 200 H (70-99) mg/dl Calcium (8.5-10.1) mg/dl Urine Blood (Negative) Crossmatch 10/03/21 10/03/21 10/03/21 Range/Units 05:45 05:45 07:54 RBC 3.05 L (4.63-6.08) M/uL Hgb 8.5 L (14.0-18.0) g/dl Hct 26.2 L (40.1-51.0) % RDW Std Deviation 50.1 H (36.4-46.3) fL RDW Coeff of Jose A 15.8 H (11.5-14.5) % Plt Count 93 L (130-400) K/uL Neut # (Auto) 8.16 H (1.4-6.5) K/uL Lymph # (Auto) 0.35 L (1.2-3.4) K/uL Immature Gran # (Auto) 0.04 H (0.00-0.02) K/uL PT (9.0-12.0) Seconds INR (0.9-1.1) Sodium 133 L (136-145) mmol/L Glucose 167 H (70-99(Fasting)) mg/dl POC Glucose 208 H (70-99) mg/dl Calcium 8.2 L (8.5-10.1) mg/dl Urine Blood (Negative) Crossmatch Diagnostic Findings none for today pending EGD Medications Administered Home Medications finasteride 5 mg tablet 5 mg PO DAILY 01/17/21 [History Confirmed 10/01/21] glipizide 10 mg tablet 20 mg PO BID 01/17/21 [History Confirmed 10/01/21] metoprolol succinate 50 mg tablet,extended release 24 hr 50 mg PO DAILY 01/17/21 [History Confirmed 10/01/21] simvastatin 20 mg tablet 20 mg PO HS 01/17/21 [History Confirmed 10/01/21] tamsulosin 0.4 mg capsule 0.4 mg PO DAILY 01/17/21 [History Confirmed 10/01/21] cyanocobalamin (vitamin B-12) 5,000 mcg capsule 5,000 mcg PO DAILY #30 caps 03/22/21 [Rx Confirmed 10/01/21] furosemide 40 mg tablet 40 mg PO BID #60 tabs 03/22/21 [Rx Confirmed 10/01/21] amoxicillin 500 mg tablet 2,000 mg PO ONCE #20 tabs 07/24/21 [Rx Confirmed 10/01/21] amlodipine 2.5 mg tablet 5 mg PO DAILY 08/28/21 [History Confirmed 10/01/21] warfarin 5 mg tablet 5 mg PO DAILY #100 tabs 09/25/21 [Rx Confirmed 10/01/21] triamcinolone acetonide 0.1 % topical ointment 1 applic topical BID Right Leg Wound 10/01/21 [History Confirmed 10/01/21] Active Medications Acetaminophen (Acetaminophen 325 Mg Tab) 650 mg PO Q4H PRN PRN Reason: Pain or Fever Stop: 10/31/21 12:59 Amlodipine Besylate (Amlodipine Besylate 5 Mg Tab) 5 mg PO DAILY GEETA Stop: 10/31/21 12:59 Last Admin: 10/02/21 07:14 Dose: 5 mg Dextrose (Dextrose 50% 50 Ml Syringe) 25 - 50 ml IV UD PRN; Protocol PRN Reason: Hypoglycemia Protocol Stop: 10/31/21 12:59 Finasteride (Finasteride 5 Mg Tab) 5 mg PO DAILY GEETA Stop: 11/01/21 08:59 Last Admin: 10/02/21 07:14 Dose: 5 mg Furosemide (Furosemide 40 Mg Tab) 40 mg PO [id number] GEETA Stop: 11/02/21 08:59 Glucagon (Glucagon For Inj 1 Mg Vial) 1 mg SQ UD PRN; Protocol PRN Reason: Hypoglycemia Protocol Stop: 10/31/21 12:59 Glucose (Glucose 40% Gel 15 Gm Tube) 15 - 30 gm PO UD PRN; Protocol PRN Reason: Hypoglycemia Protocol Stop: 10/31/21 12:59 Glucose (Glucose 10 Tab/Tube) 4 - 8 tab PO UD PRN; Protocol PRN Reason: Hypoglycemia Treatment Stop: 10/31/21 12:59 Pantoprazole Sodium 40 mg/ (Syringe) 10 mls @ 5 mls/min IV BID GEETA Stop: 10/31/21 20:59 Last Admin: 10/03/21 08:35 Dose: 5 mls/min Insulin Aspart (Insulin Aspart Per Unit) 0 units SC ACHS GEETA Stop: 10/31/21 12:59 Last Admin: 10/02/21 21:38 Dose: 4 units Insulin Glargine (Lantus Per Unit Charge) 5 units SQ HS GEETA Stop: 11/01/21 20:59 Last Admin: 10/02/21 21:38 Dose: 5 units Metoprolol Succinate (Metoprolol Succ 50mg Ext Rel Tab) 50 mg PO DAILY GEETA Stop: 11/01/21 08:59 Last Admin: 10/02/21 07:14 Dose: 50 mg Miscellaneous (Carbohydrates For Hypoglycemia ) 15 - 30 gm PO UD PRN PRN Reason: Hypoglycemia Protocol Stop: 10/31/21 12:59 Simvastatin (Simvastatin 20 Mg Tab) 20 mg PO HS [facility] Stop: 10/31/21 20:59 Last Admin: 10/02/21 21:41 Dose: 20 mg Triamcinolone Acetonide (Triamcinolone Acet 0.1% Oint 15 Gm Tube) 1 appln TOP BID GEETA Stop: 10/31/21 20:59 Last Admin: 10/03/21 08:36 Dose: 1 appln PG Care Time/CCT Total # of Minutes Spent Total Time Spent with Patient: Total time spent is greater than 50% in coordination of care (as documented) at patient's floor/unit and/or counseling patient: Coding Level of Care Code 73617 Subseq Hosp Care Lvl 3 Diagnoses Confusion R41.0 Anemia D64.9 Hypoxia R09.02 Hypocalcemia E83.51 Pacemaker Z95.0 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 transplanted heart: [place] heart Anticoagulant long-term use Z79.01 HTN (hypertension) I10 DM II (diabetes mellitus, type II), controlled E11.9 Electrolyte abnormality E87.8 HF (heart failure), diastolic I50.30 Elevated troponin R77.8 (1) CAD (coronary atherosclerotic disease) Associated angina: unspecified whether angina present Coronary Disease- Associated Artery/Lesion type: bypass graft [place] vs. transplanted heart: [place] heart Qualified Code(s): I25.810 - Atherosclerosis of coronary artery bypass graft(s) without angina pectoris
--- NOTE | 2021-10-03 09:50 | Gastroenterology Progress Note ---
Date of Service October 03, 2021 Assessment & Plan (1) Anemia: (2) Dark stools: Plan: Patient is an 86 years old male admitted yesterday for acute confusion, currently resolving. No acute findings on initial work-up including head CT, carotid Dopplers and chest x-ray. He was anemic on presentation and given 1 unit of PRBC transfusion with good response in blood count. He is on Coumadin for Afib, INR not supratherapuetic on presentation. He had been complaining of intermittent dark-colored stools without any johnathan rectal bleeding. History of rectal cancer status postresection, ostomy creation and reversal, chemo and radiation therapies. [facility] sigmoid [facility], internal hemorrhoids. No records of EGD. Evaluated by cardiology for rising troponin. Noted to be acceptable candidate for EGD from cardiac standpoint. - PPI IV BID - FL diet today; Keep NPO after midnight - Plan for EGD eval on 10/04 - Monitor blood ct and transfusion Admission and Anticipated Discharge Date Admission Date: October 02, 2021 Supervising Physician Co-Signing Physician Notes Attg add: I interviewed and examined pt, reviewed chart and labs. Pt with intermittent dark stools, downwards drifting hgb. EGD today. Subjective Patient up in chair, was asleep, easily aroused, oriented x3. He had bowel movements last night and this morning, states that he did not see any dark tarry stools or rectal bleeding. Denies any fever, chills, chest pain, shortness of breath, abdominal pain, nausea or vomiting. Blood count stable from yesterday. Review of Systems Review of Systems: All systems reviewed & are unremarkable except as noted in HPI & below Physical Exam Constitutional: WD/WN, vitals as above well groomed, cooperative and comfortable Eyes: PERRL, conjunctivae normal, anicteric sclerae ENMT: external ear and nose normal, oropharynx normal Cardiovascular: RRR, no murmur, no edema Gastrointestinal (Abdomen): normal bowel sounds, soft, nontender, no hepatosplenomegaly Skin: no rashes, warm and dry no jaundice Psychiatric: A+Ox3, euthymic affect Lymphatic: no lymphedema Results & Data ([facility]) Vital Signs (Past 12 Hours) Vital Signs Temp Pulse Pulse Resp BP BP Pulse Ox 10/03/21 08:34 110 H 161/77 H 10/03/21 06:46 36.9 C 110 H 20 161/77 H 90 10/03/21 03:50 36.6 C 90 20 163/67 H 90 10/02/21 23:56 66 10/02/21 23:56 10/02/21 23:42 36.4 C L 72 20 162/64 H 94 O2 Del Method 10/03/21 08:34 10/03/21 06:46 Room Air 10/03/21 03:50 Room Air 10/02/21 23:56 10/02/21 23:56 Room Air 10/02/21 23:42 Room Air
[2021-10-03] MEDS: METOPROLOL SUCC 50MG EXT REL TAB PO SCH (11:11)
--- NOTE | 2021-10-03 11:46 | History & Physical Report ---
Date of Service October 03, 2021 Assessment & Plan Admission and Anticipated Discharge Date Admission Date: October 02, 2021 History of Present Illness Primary Care Provider: Shikha Jarquin MD dark stool CV: RRR Resp: CTA Abd: Soft A/P: EGD Allergies Allergy/AdvReac Type Severity Reaction Status Date / Time No Known Allergies Allergy Mild NONE Verified 08/28/21 08:38 Home Medications Medication Instructions Recorded Confirmed Type finasteride 5 mg tablet 5 mg PO DAILY 01/17/21 10/01/21 History glipizide 10 mg tablet 20 mg PO BID 01/17/21 10/01/21 History metoprolol succinate 50 mg 50 mg PO DAILY 01/17/21 10/01/21 History tablet,extended release 24 hr simvastatin 20 mg tablet 20 mg PO HS 01/17/21 10/01/21 History tamsulosin 0.4 mg capsule 0.4 mg PO DAILY 01/17/21 10/01/21 History cyanocobalamin (vitamin B-12) 5,000 mcg PO DAILY #30 caps 03/22/21 10/01/21 Rx 5,000 mcg capsule furosemide 40 mg tablet 40 mg PO BID #60 tabs 03/22/21 10/01/21 Rx amoxicillin 500 mg tablet 2,000 mg PO ONCE #20 tabs 07/24/21 10/01/21 Rx amlodipine 2.5 mg tablet 5 mg PO DAILY 08/28/21 10/01/21 History warfarin 5 mg tablet 5 mg PO DAILY #100 tabs 09/25/21 10/01/21 Rx triamcinolone acetonide 0.1 % 1 applic topical BID Right Leg 10/01/21 10/01/21 History topical ointment Wound Past Med/Surg History Medical History (Updated 10/03/21 @ 04:28 by Erica Hidalgo DO) Anticoagulant long-term use BPH w urinary obs/LUTS Chronic heart failure with preserved ejection fraction Colon cancer Coronary artery disease Diabetes Hypercholesterolemia Hypertension Lower extremity edema Paroxysmal atrial fibrillation Subdural hematoma Surgical History (Updated 10/02/21 @ 17:40 by Scotoer Crowley MD) History of heart bypass surgery History of partial colectomy S/P TAVR (transcatheter aortic valve replacement) Status post evacuation of subdural hematoma Family History (Updated 10/01/21 @ 19:42 by Alicia Hendrickson MD) Other Family history non-contributory Social History Smoking Status: Former smoker Tobacco Type: Cigarettes Second Hand Exposure: No; Do You Dip or Chew Tobacco: No; Tobacco Cessation Education Requested by Patient: No Hx Alcohol Use: No Hx Substance Use: No Preferred Language: French Communication Ability: Effective Marketing Compliance Manager Required: No Beliefs That Will Affect Care: None marital status: Current Living Situation: Family Current Living Situation Comment: and Te current occupational status: employed and retired How many Children do You have: 3 Other Information That Helps Us Care for You: No Feels Safe at Home: Yes Safety Concerns: Feels Safe At This Time Assistive Devices: Glasses Results & Data Results & Data ([facility]) Vital Signs (Past 12 Hours) Vital Signs Temp Pulse Pulse Resp BP BP Pulse Ox 10/03/21 08:00 107 H 10/03/21 10:53 36.9 C 87 18 119/68 94 10/03/21 08:34 110 H 161/77 H 10/03/21 06:46 36.9 C 110 H 20 161/77 H 90 10/03/21 03:50 36.6 C 90 20 163/67 H 90 10/02/21 23:56 66 10/02/21 23:56 O2 Del Method 10/03/21 08:00 10/03/21 10:53 Room Air 10/03/21 08:34 10/03/21 06:46 Room Air 10/03/21 03:50 Room Air 10/02/21 23:56 10/02/21 23:56 Room Air Code Status & VTE Plan VTE Prophylaxis Plan VTE Prophylaxis will be ordered: Yes
--- NOTE | 2021-10-03 11:47 | Anesthesiology Consultation ---
Date of Service October 03, 2021 Assessment & Plan Chart Review Chart Review: Acceptable Risk for Surgery and Patient NOT seen in Pre Admission Testing Consults Requested none ASA ASA4 Proposed Anesthesia Anesthesia Type: MAC Risk / Benefits Reviewed With: PT / POA / Parent / Guardian, Accepts Plan and Informed Consent Obtained History Surgery Operation Date: 10/03/21 16:00 Proposed Procedures p Esophagogastroduodenoscopy Dr Hernandez - Jadiel Rawls MD Height/Weight Height: 5 ft 6 in Weight: 81.7 kg Allergies Allergy/AdvReac Type Severity Reaction Status Date / Time No Known Allergies Allergy Mild NONE Verified 08/28/21 08:38 Medications Home Medications Medication Instructions Recorded Confirmed Last Taken finasteride 5 mg tablet 5 mg PO DAILY 01/17/21 10/01/21 09/30/21 glipizide 10 mg tablet 20 mg PO BID 01/17/21 10/01/21 09/30/21 metoprolol succinate 50 mg 50 mg PO DAILY 01/17/21 10/01/21 09/30/21 tablet,extended release 24 hr simvastatin 20 mg tablet 20 mg PO HS 01/17/21 10/01/21 09/30/21 tamsulosin 0.4 mg capsule 0.4 mg PO DAILY 01/17/21 10/01/21 09/30/21 cyanocobalamin (vitamin B-12) 5,000 mcg PO DAILY #30 caps 03/22/21 10/01/21 09/30/21 5,000 mcg capsule furosemide 40 mg tablet 40 mg PO BID #60 tabs 03/22/21 10/01/21 09/30/21 amoxicillin 500 mg tablet 2,000 mg PO ONCE #20 tabs 07/24/21 10/01/21 Unknown amlodipine 2.5 mg tablet 5 mg PO DAILY 08/28/21 10/01/21 09/30/21 warfarin 5 mg tablet 5 mg PO DAILY #100 tabs 09/25/21 10/01/21 09/30/21 triamcinolone acetonide 0.1 % 1 applic topical BID Right Leg 10/01/21 10/01/21 10/01/21 topical ointment Wound Active Medications Generic Name Dose Route Start Last Admin Trade Name Freq PRN Reason Stop Dose Admin Amlodipine Besylate 5 mg 10/01/21 13:00 10/02/21 07:14 Amlodipine Besylate 5 Mg Tab PO 10/31/21 12:59 5 mg DAILY GEETA Administration Finasteride 5 mg 10/02/21 09:00 10/02/21 07:14 Finasteride 5 Mg Tab PO 11/01/21 08:59 5 mg DAILY GEETA Administration Pantoprazole Sodium 40 mg/ 10 mls @ 5 mls/min 10/01/21 21:00 10/03/21 08:35 Syringe IV 10/31/21 20:59 5 mls/min BID GEETA Administration Insulin Aspart 0 units 10/01/21 13:00 10/03/21 08:45 Insulin Aspart Per Unit SC 10/31/21 12:59 4 units ACHS GEETA Administration Insulin Glargine 5 units 10/02/21 21:00 10/02/21 21:38 Lantus Per Unit Charge SQ 11/01/21 20:59 5 units HS GEETA Administration Metoprolol Succinate 50 mg 10/02/21 09:00 10/03/21 11:11 Metoprolol Succ 50mg Ext Rel Tab PO 11/01/21 08:59 Not Given DAILY GEETA Simvastatin 20 mg 10/01/21 21:00 10/02/21 21:41 Simvastatin 20 Mg Tab PO 10/31/21 20:59 20 mg HS GEETA Administration Triamcinolone Acetonide 1 appln 10/01/21 21:00 10/03/21 08:36 Triamcinolone Acet 0.1% Oint 15 Gm Tube TOP 10/31/21 20:59 1 appln BID GEETA Administration NPO Date Last Intake of Fluids: 10/03/21 Time Last Intake of Fluids: 20:00 Date Last Intake of Solids: 10/01/21 Time Last Intake of Solids: 18:00 Past Medical History Medical History (Updated 10/03/21 @ 04:28 by Erica Hidalgo DO) Anticoagulant long-term use BPH w urinary obs/LUTS Chronic heart failure with preserved ejection fraction Colon cancer Coronary artery disease Diabetes Hypercholesterolemia Hypertension Lower extremity edema Paroxysmal atrial fibrillation Subdural hematoma Exercise / Class Metabolic Activity II 4-5 Yardwork/Stairs/Walk up hill Past Family History Family History (Updated 10/01/21 @ 19:42 by Alicia Hendrickson MD) Other Family history non-contributory Past Surgical History Surgical History (Updated 10/02/21 @ 17:40 by Scooter Crowley MD) History of heart bypass surgery History of partial colectomy S/P TAVR (transcatheter aortic valve replacement) Status post evacuation of subdural hematoma Past Anesthesia History No Hx of Anesthesia Complications and No Family Hx of Anesthesia Complications History of PONV No Hx of PONV and No Hx of Motion Sickness Social History Smoking Status: Former smoker Do You Dip or Chew Tobacco: No Hx Alcohol Use: No Hx Substance Use: No substance use type: does not use Physical Exam Vital Signs Last Vital Signs Temp 36.4 C L 10/03/21 11:41 Pulse 85 10/03/21 11:41 Resp 16 10/03/21 11:41 BP 131/69 10/03/21 11:41 Pulse Ox 94 10/03/21 11:41 O2 Del Method 10/03/21 11:41 O2 Flow Rate 2 10/02/21 03:05 ENMT Mouth: no dentition abnormality Thyromental Distance: > or= 3.5 Finger Breadths Mallampati Class: II Neck normal visual inspection Respiratory normal respiratory effort Auscultation: lungs clear to auscultation bilaterally Cardiovascular Rate/Rhythm: regular rate and regular rhythm Chest (Breasts) Chest: + pacemaker Psychiatric Orientation: alert Testing Laboratory Results 10/03/21 05:45 10/03/21 05:45 PT 22.9 Seconds (9.0-12.0) H 10/03/21 05:45 INR 2.2 (0.9-1.1) H 10/03/21 05:45 Hemoglobin A1c 6.9 % (4.5-5.6) H 10/02/21 07:20 Urine Color Yellow 10/01/21 06:02 Urine Appearance Clear (Clear) 10/01/21 06:02 Urine pH 6.0 (4.5-7.5) 10/01/21 06:02 Ur Specific [place] 1.007 (1.000-1.030) 10/01/21 06:02 Urine Protein 1+ (Negative) H 10/01/21 06:02 Urine Glucose (UA) Negative (Negative) 10/01/21 06:02 Urine Ketones Negative (Negative) 10/01/21 06:02 Urine Nitrite Negative (Negative) 10/01/21 06:02 Ur Leukocyte Esterase Negative (Negative) 10/01/21 06:02 Urine WBC (Auto) 1-5 /hpf (0-5) 10/01/21 06:02 Urine RBC (Auto) 0-4 /hpf (0-4) 10/02/21 13:00 U Hyaline Cast (Auto) 1-5 /lpf (0-5) 10/01/21 06:02 U Epithel Cells (Auto) >30 /lpf (0-5) H 10/01/21 06:02 Urine Bacteria (Auto) Negative (Negative) 10/01/21 06:02 Blood Type B Positive 10/01/21 10:14 Antibody Screen NEGATIVE 10/01/21 10:14 10/03/21 10/03/21 11:19 07:54 POC Glucose 173 H 208 H
[2021-10-03] MEDS ORDERED: PROPOFOL IV EMULSION 10 MG/ML 20 ML VIAL IV ONE (11:49)
[2021-10-03] MEDS ORDERED: LIDOCAINE 2% MPF LOCAL 5 ML VIAL INFIL ONE (11:49)
--- NOTE | 2021-10-03 12:14 | GI REPORT ---
Patient Name: Flako Parker Procedure Date: 10/03/2021 11:36 AM Date of : 1935 Admit Type: Inpatient Age: 86 Gender: Male Attending MD: Jadiel Rawls MD Procedure: Upper GI endoscopy/small bowel enteroscopy Providers: Jadiel Rawls MD Referring MD: Alicia Hendrickson Md Indications: Acute post hemorrhagic anemia Medicines: See the Anesthesia note for documentation of the administered medications Complications: No immediate complications. Estimated Blood Loss: Estimated blood loss: none. Procedure: Pre-Anesthesia Assessment: - ASA Grade Assessment: III - A patient with severe systemic disease. After obtaining informed consent, the endoscope was passed under direct vision. Throughout the procedure, the patient's blood pressure, pulse, and oxygen saturations were monitored continuously. The Endoscope was introduced through the mouth, and advanced to the proximal jejunum. The upper GI endoscopy was accomplished without difficulty. The patient tolerated the procedure well. Findings: Mild thrush in proximal esophagus. The Z-line was found 40 cm from the incisors. The Z line was irregular. There was mild edema of the mucosa at the GE junction, suggestive of carditis. This was not biopsied due to pt's increased INR. There was a small hiatal hernia. Hill 2. The stomach, duodenum, and jejunum were normal. There was bilious fluid throughout. Impression: No source of UGIB. 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 Recommendation: - Discharge patient to floor. - Can resume normal diet. - Would ask hospitalist service to continue to follow hgb. If continues to drift down, can consider inpt colonoscopy early next week. If remains stable x 3 days, ok to resume anticoagulation; in this case, please arrange outpt follow up with pt's established provider to consider outpt colonoscopy. - Will sign off, but please reconsult as needed. Jadiel Rawls M.D. Jadiel Rawls MD 10/03/2021 12:14:21 PM This report has been signed electronically. Note Initiated On: 10/03/2021 11:36 AM Number of Addenda: 0 I attest to the content of the Intraoperative Record and orders documented therein, exceptions below {[id number]}
[2021-10-03] MEDS: FUROSEMIDE 40 MG TAB PO SCH ×2 (13:15→16:30)
[2021-10-03] MEDS: FINASTERIDE 5 MG TAB PO SCH (13:15)
[2021-10-03] MEDS: amLODIPine BESYLATE 5 MG TAB PO SCH (13:15)
--- NOTE | 2021-10-03 14:52 | Anesthesiology Progress Note ---
Date of Service October 03, 2021 Anesthesia Post Procedure Vital Signs Vital Signs: Temp Pulse Pulse Resp BP BP Pulse Ox 10/03/21 12:41 70 16 121/55 L 95 10/03/21 12:26 67 18 106/56 L 96 10/03/21 12:10 69 20 91/47 L 95 10/03/21 11:41 36.4 C L 85 16 131/69 94 10/03/21 08:00 107 H 10/03/21 10:53 36.9 C 87 18 119/68 94 10/03/21 08:34 110 H 161/77 H 10/03/21 06:46 36.9 C 110 H 20 161/77 H 90 10/03/21 03:50 36.6 C 90 20 163/67 H 90 10/02/21 23:56 66 10/02/21 23:56 10/02/21 23:42 36.4 C L 72 20 162/64 H 94 10/02/21 20:05 36.5 C 70 18 137/59 L 97 10/02/21 15:22 36.3 C L 70 20 111/67 97 O2 Del Method 10/03/21 12:41 Room Air 10/03/21 12:26 Room Air 10/03/21 12:10 Room Air 10/03/21 11:41 Room Air 10/03/21 08:00 10/03/21 10:53 Room Air 10/03/21 08:34 10/03/21 06:46 Room Air 10/03/21 03:50 Room Air 10/02/21 23:56 10/02/21 23:56 Room Air 10/02/21 23:42 Room Air 10/02/21 20:05 Room Air 10/02/21 15:22 Transfer of Care Handoff Completed per policy Notes Mental Status: alert / awake / arousable Patient Amnestic to Procedure: Yes Nausea / Vomiting: adequately controlled Pain: adequately controlled Airway Patency, RR, SpO2: stable & adequate BP & HR: stable & adequate Hydration State: stable & adequate Anesthetic Complications: no major complications apparent
[2021-10-03] MEDS: SIMVASTATIN 20 MG TAB PO SCH (20:59)
[2021-10-03] MEDS: LANTUS PER UNIT CHARGE SQ SCH (21:00)
--- NOTE | 2021-10-03 23:39 | Electrocardiogram Report ---
Test Reason : Blood Pressure : / mmHG Vent. Rate : 112 BPM Atrial Rate : 112 BPM P-R Int : 160 ms QRS Dur : 110 ms QT Int : 372 ms P-R-T Axes : 000 -36 099 degrees QTc Int : 507 ms Atrial-sensed ventricular-paced rhythm Abnormal ECG When compared with ECG of 01-OCT-2021 04:06, Vent. rate has increased BY 17 BPM Confirmed by Scooter Crowley ([id number]) on 10/03/2021 11:39:07 PM Referred By: REFERRED SELF Confirmed By:Scooter Crowley
[2021-10-04 06:51] LABS: Basophils # (auto) 0.02 K/uL (0-0.2); Basophils % (auto) 0.4 %; Eosinophils # (auto) 0.04 K/uL (0-0.50); Eosinophils % (auto) 0.8 %; Hematocrit (blood only) 23.5 % (40.1-51.0); Hemoglobin 7.5 g/dl (14.0-18.0); Immature Granulocytes # (auto) 0.02 K/uL (0.00-0.02); Immature Granulocytes % (auto) 0.4 %; Lymphocytes # (auto) 0.33 K/uL (1.2-3.4); Lymphocytes % (auto) 6.3 %; Mean Corpuscular Hemoglobin 28.2 pg (25.0-34.0); Mean Corpuscular Hgb Conc 31.9 g/dL (32.0-36.0); Mean Corpuscular Volume 88.3 fL (80.0-100.0); Mean Platelet Volume 10.6 fL (9.4-12.4); Monocytes # (auto) 0.29 K/uL (0.24-0.82); Monocytes % (auto) 5.6 %; Neutrophils # (auto) 4.51 K/uL (1.4-6.5); Neutrophils % (auto) 86.5 %; Platelet Count 82 K/uL (130-400); RDW Coefficient of Variation 15.9 % (11.5-14.5); RDW Standard Deviation 51.3 fL (36.4-46.3); Red Blood Count 2.66 M/uL (4.63-6.08); White Blood Count 5.21 K/ul (4.8-10.8)
[2021-10-04 07:13] LABS: Tear Drop Cells 1+
[2021-10-04 07:22] LABS: INR 2.3 (0.9-1.1)
[2021-10-04 07:37] LABS: Hematocrit (blood only) 22.6 % (40.1-51.0); Hemoglobin 7.2 g/dl (14.0-18.0)
[2021-10-04 07:42] LABS: Calcium 7.8 mg/dl (8.5-10.1); Creatinine Clr Calc Pharmacy 34.3 ml/min; Est GFR (African American) 45.9 ml/min; Est GFR (Non-African American) 39.6 ml/min; Magnesium 1.9 mg/dl (1.7-2.4); Potassium 3.4 mmol/L (3.5-5.1)
[2021-10-04] MEDS ORDERED: SODIUM CHLORIDE 0.9% 250 ML IV PRN (08:13)
[2021-10-04] MEDS: FINASTERIDE 5 MG TAB PO SCH (08:19)
[2021-10-04] MEDS: FUROSEMIDE 40 MG TAB PO SCH (08:19)
[2021-10-04] MEDS: amLODIPine BESYLATE 5 MG TAB PO SCH (08:19)
[2021-10-04] MEDS: METOPROLOL SUCC 50MG EXT REL TAB PO SCH (08:20)
[2021-10-04] MEDS: PANTOprazole 40 MG in SYRINGE 0 ML IV SCH ×2 (08:20→20:45)
[2021-10-04] MEDS: TRIAMCINOLONE ACET 0.1% OINT 15 GM TUBE TOP SCH ×2 (08:20→20:48)
[2021-10-04] MEDS ORDERED: POTASSIUM CHLORIDE CRTAB 20 MEQ TABCR PO STA (08:23)
[2021-10-04] MEDS: INSULIN ASPART PER UNIT SC SCH ×4 (08:24→20:46)
[2021-10-04] MEDS ORDERED: FUROSEMIDE 40 MG/4 ML VIAL IV SCH (08:45)
--- NOTE | 2021-10-04 10:00 | Hospitalist Progress Note ---
Date of Service October 04, 2021 Assessment & Plan (1) Confusion: Plan: Acute temporary confusion time frame is difficult to establish as well as length of symptoms as patient still has no recollection of event or why he came to the EMD - DDX: Anemia vs. tia vs. TGA vs. infectious vs. other/aging - improved this morning with increase in hemoglobin counts- he is now able to recall most of events from yesterday and all events overnight- anemia vs. TGA vs. TIA; making anemia likely contributing factor - Continue to follow through hospital stay and following sedation if EGD pursued - carotid dopplers performed on admission negative - No acute events overnight and no further episodes As this is now resolved this was likely most related to his anemia (2) Anemia: Plan: Acute blood loss anemia - HGB 7.6 with report of dark stools with decreased appetite and without epigastric pain - Likely associated with blood loss from likely UGIB- however EGD without source of bleeding - Continue Protonix - HGB stable for 1 day now with decrease to 7.2- transfuse [address] angio of the abdomen/pelvis - Hold Warfarin at this time- INR 2.5- 2.2 today - EGD pending - resume diet following - HGB downtrend 10/05 continue to hold warfarin - No acute bleed noted on EGD- If downtrends again consider re-consulting GI for colo -with thrombocytopenia--> check B12. No h/o liver or spleen issues, nwith mild hepatosplenomegaly on CT abd AOCD labs sent- initiate therapy based on these (3) Hypoxia: Plan: Acute event following blood transfusion with CXR with pulmonary edema and in the setting of blood transfusion- TACO - [place] without respiratory failure - he was diuresed x2 since that time and supported with oxygen therapy which has since been weaned off which is more indicative of TACO -await transfusion reaction workup as per Pathology - Intake and output poorly tracked through the PM so un-helpful with total net g oal - 40mg Lasix given this morning follow renal function and re-eval - NC placed overnight and weaned off this morning. As above improved with conservative treatment consistent with TACO - Diurese today following EGD RESOLVED (4) Hypocalcemia: Plan: Mild on admission and likely worsened with PRBC infusion - will replace now with 1 GM - If bleeding continues or requires more PRBC administer 1GM - Replace 10/05/21 following PRBC - 1 GM calcium gluconate (5) Pacemaker: Plan: RealMatch Hilda XT MRI [id number] Atrial Lead CasureFix Novus MRI Septal SelectSecure Appropriate AV sense with appropriate fire and capture of ventricle Miode DDD with mode switch at 171 - Low rate 60 - upper track 130 AT/AF >171 VT >150 (6) S/P TAVR (transcatheter aortic valve replacement): Plan: performed at [facility] [place] 05/14 - Repeat ECHOs with improvement in aortic valve velocities - Remains on Warfarin with plan of discontinuing this in November s/p TAVR "unless another indication" and patient does have Afib-defer to Cardiology outpt (7) CKD (chronic kidney disease) stage 3, GFR 30-59 ml/min: Plan: Baseline [employer] 1.4-1.6 - stable and down to 1.25 today with diruesing - likely will need either diuretic increased on dc or better adherance to diet with sodium restriction - diurese as above - down trend following initial diuresis and remains within his baseline - avoid further nephrotoxic medications as able - follow as above (8) CAD (coronary atherosclerotic disease): Plan: CABG 2007 with cath 01/13 severe left main disease with patent grafts - As above- continue with BB and BP control - Trend HScTNI- no acute change (9) Anticoagulant long-term use: Plan: Secondary to Afib- s/p TAVR and DDD pacemaker - does not need for TAVR after November, but has a h/o PAF and needs coumadin for that - Hold as above - INR remains at 2.5 this morning - consider Vitamin K if desired by GI but will recheck in the AM - HGB level stable - pending the above EGD may discuss if able to d/c coumadin (10) HTN (hypertension): Plan: As above (11) DM II (diabetes mellitus, type II), controlled: Plan: Hold oral agents - transistion to Sliding Scale Insulin- Aspart with CF 20 add on carb ratio added 1:10--> decrease to 18/12 - Goal <180 - hypoglycemic protocol -A1C 6.9 -add on Lantus 5 units hs for hyperglycemia (12) Electrolyte abnormality: Plan: Hyponatremic and hypochloremic with edema to bilateral lower extremities- will diurese now with IV lasix and likely repeat if needed - likely hypervolemic hyponatremic complicated by decrease solute intake with decrease oral food intake - NA increase to 133 should continue to increase with diuretics Hypomag- replete with 3 GM IV Magnesium 1.6 as above diarrhea plus decrease food intake - improved to 2.0 iCA 1.15 follow (13) HF (heart failure), diastolic: Plan: Chronic HFpEF will need some IV diuresing as above follow volume status combination of lower extremity edema likely related to low albumin, age, decrease overall function at home - Diurese as above - As above not acute IV diureseis undertook for better pharmacokinetics in setting of anemia and transfusions (14) Elevated troponin: Plan: Likely demand elevation as asymptomatic and related to his underlying structural heart disease - trend HScTNI - no acute intervention at this time - Continue BB- did not take medications this morning- will give 50mg Metoprolol now - Continue with BP control with amlodipine as hemodynamics allow Downtrend following admission was checked with his hypoxia in the middle of night and uptrended to 37 remains without complaints of chest pain Resolved Plan Likely able to DC within 24 hours Admission and Anticipated Discharge Date Admission Date: October 02, 2021 Supervising Physician Co-Signing Physician Notes KNAPSACK SPRAYER Supervision Note: I did not personally see or examine the patient today, but I verified all martinez points of LEA Doss's assessment and plan with the following exceptions/additions: None Subjective HD #3 following admission for weakness and anemia found on admission associated with dark stools. HD #1 had event noted for concern of respiratory insufficiency following 1 unit of PRBCs, requiring oxygenation and re-dose of diuretics- consistent with Pulmonary edema or TACO as this responded conservatively and oxygen requirement is decreased makes TRALI unlikely. No events noted overnight. Cardiology risk evaluation completed, patient remains NPO and proceeded with EGD- this was noteable for mild thrush esophagitis, and no source of bleeding found. His HGB level this morning on 10/04 decreased t0 7.5 with redraw of 7.2. There has been no change in his bowel movements or abdominal exam. Anemia labs sent as he is known to be [id number] prior. He was given 1 unit of PRBC and CTA of the abdomen performed with no bleeding. Platlets also downtrending likely related to anemia- INR therapuetic still so doubt consumptive process from clot, spleen eval with CTA of abdomen. . Review of Systems Review of Systems: REVIEW OF SYSTEMS: Constitutional: No fever, sweats or chills Eyes: No diplopia, no worsening or blurred vision ENT: (+) difficulty hearing, no trouble swallowing Respiratory: No cough, sputum, dyspnea at rest or on exertion Cardiovascular: (+) lower extremity edema, No chest pain, tightness or palpitations Abdomen: (+) dark stools- resolving this morning to normal color, No pain, nausea, vomiting, diarrhea or constipation Musculoskeletal: (+) right shoulder joint pain, Neurologic: No weakness, numbness/tingling, or balance problems Psychiatric: No anxiety or depression Skin: (+) bruising Physical Exam Physical Exam: PHYSICAL EXAM: General: awake, alert, no apparent distress, improved cognitive function and interaction this morning Head: Normocephalic, atraumatic ENT: PERRLA, EOMI, no pharyngeal exudate, mucous membranes moist Neuro: AAO x 3, speech clear and appropriate, strength intact bilaterally 5/5, sensation intact and equal all extremities and dermatomes, no pronator drift, Chest: equal rise and fall of the chest, no accessory muscle use, no heaves or thrills, scattered crackles in bases Cardiac: Regular rate and rhythm, telemetry reviewed- V pace, skin warm dry, cap refill <3 seconds, peripheral pulses +2 no JVD, +3 edema to lower feet and ankles : Spontaneously voiding, no pain, no CVA tenderness, Psych: Normal mood and affect Skin: bruising to hands, right rib, and subxiphoid Results & Data Results & Data ([facility]) Vital Signs (Past 12 Hours) Vital Signs Temp Pulse Pulse Resp BP BP Pulse Ox 10/04/21 09:22 36.7 C 97 H 18 124/67 92 10/04/21 09:17 10/04/21 09:03 36.7 C 96 H 18 115/64 10/04/21 08:48 36.7 C 96 H 18 116/62 10/04/21 09:07 36.7 C 105 H 18 106/60 93 10/04/21 08:18 96 H 97 10/04/21 07:00 84 10/04/21 06:39 36.6 C 58 L 18 156/75 H 92 10/04/21 03:43 36.6 C 87 20 159/73 H 90 10/04/21 01:08 69 10/04/21 01:08 10/03/21 23:28 36.3 C L 79 20 169/74 H 100 O2 Del Method O2 Flow Rate 10/04/21 09:22 10/04/21 09:17 Room Air 10/04/21 09:03 10/04/21 08:48 10/04/21 09:07 10/04/21 08:18 Room Air 10/04/21 07:00 10/04/21 06:39 2 10/04/21 03:43 Room Air 10/04/21 01:08 10/04/21 01:08 Room Air 10/03/21 23:28 2 Laboratory Results Abnormal lab results 10/01/21 10/03/21 10/03/21 Range/Units 10:14 16:19 16:20 RBC (4.63-6.08) M/uL Hgb (14.0-18.0) g/dl Hct (40.1-51.0) % MCHC (32.0-36.0) g/dL RDW Std Deviation (36.4-46.3) fL RDW Coeff of Jose A (11.5-14.5) % Plt Count (130-400) K/uL Lymph # (Auto) (1.2-3.4) K/uL PT (9.0-12.0) Seconds INR (0.9-1.1) Sodium (136-145) mmol/L Potassium (3.5-5.1) mmol/L BUN (6-23) mg/dl Creatinine (0.6-1.4) mg/dl Glucose (70-99(Fasting)) mg/dl POC Glucose 258 H 260 H (70-99) mg/dl Calcium (8.5-10.1) mg/dl Crossmatch See Detail 10/03/21 10/04/21 10/04/21 Range/Units 20:08 06:35 06:35 RBC 2.66 L (4.63-6.08) M/uL Hgb 7.5 L (14.0-18.0) g/dl Hct 23.5 L (40.1-51.0) % MCHC 31.9 L (32.0-36.0) g/dL RDW Std Deviation 51.3 H (36.4-46.3) fL RDW Coeff of Jose A 15.9 H (11.5-14.5) % Plt Count 82 L (130-400) K/uL Lymph # (Auto) 0.33 L (1.2-3.4) K/uL PT 23.0 H (9.0-12.0) Seconds INR 2.3 H (0.9-1.1) Sodium (136-145) mmol/L Potassium (3.5-5.1) mmol/L BUN (6-23) mg/dl Creatinine (0.6-1.4) mg/dl Glucose (70-99(Fasting)) mg/dl POC Glucose 139 H (70-99) mg/dl Calcium (8.5-10.1) mg/dl Crossmatch 10/04/21 10/04/21 10/04/21 Range/Units 06:35 07:28 07:37 RBC (4.63-6.08) M/uL Hgb 7.2 L (14.0-18.0) g/dl Hct 22.6 L (40.1-51.0) % MCHC (32.0-36.0) g/dL RDW Std Deviation (36.4-46.3) fL RDW Coeff of Jose A (11.5-14.5) % Plt Count (130-400) K/uL Lymph # (Auto) (1.2-3.4) K/uL PT (9.0-12.0) Seconds INR (0.9-1.1) Sodium 134 L (136-145) mmol/L Potassium 3.4 L (3.5-5.1) mmol/L BUN 25 H (6-23) mg/dl Creatinine 1.56 H D (0.6-1.4) mg/dl Glucose 163 H (70-99(Fasting)) mg/dl POC Glucose 178 H (70-99) mg/dl Calcium 7.8 L (8.5-10.1) mg/dl Crossmatch 10/04/21 Range/Units 11:48 RBC (4.63-6.08) M/uL Hgb (14.0-18.0) g/dl Hct (40.1-51.0) % MCHC (32.0-36.0) g/dL RDW Std Deviation (36.4-46.3) fL RDW Coeff of Jose A (11.5-14.5) % Plt Count (130-400) K/uL Lymph # (Auto) (1.2-3.4) K/uL PT (9.0-12.0) Seconds INR (0.9-1.1) Sodium (136-145) mmol/L Potassium (3.5-5.1) mmol/L BUN (6-23) mg/dl Creatinine (0.6-1.4) mg/dl Glucose (70-99(Fasting)) mg/dl POC Glucose 250 H (70-99) mg/dl Calcium (8.5-10.1) mg/dl Crossmatch Diagnostic Findings Head CT 10/01/21 04:16 CT head/brain wo con CLINICAL HISTORY: 86 years-old Male with ams. Acutely altered mental status TECHNIQUE: Multiple axial CT images of the head were obtained without contrast. A dose lowering technique was utilized adhering to the principles of ALARA. CT DOSE: 1151.75 mGy.cm COMPARISON: Head CT 11/23/2017. FINDINGS: No acute intracranial hemorrhage, midline shift, intracranial mass, hydrocephalus, territorial ischemia or abnormal extra-axial collection. Involutional changes. White matter hypodensities suggest chronic microvascular ischemic disease. The study is motion degraded and was subsequently repeated. 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 Cerebral vascular calcifications. No acute calvarial fracture. Right parietal jose hole. Prior bilateral lens repair. The paranasal sinuses, mastoid air cells, and middle ear cavities are clear. IMPRESSION: No acute intracranial abnormality. ACT 112: Negative or not required by law. The above report was generated using voice recognition software. It may contain grammatical, syntax or spelling errors. Electronically signed by: Rafael Jones M.D. 10/01/2021 7:05 AM Chest X-Ray 10/01/21 04:17 XR chest 1V portable CLINICAL HISTORY: ams TECHNIQUE: Single frontal radiograph of the chest was obtained. Comparison: Comparison is made to chest radiograph 03/14/2021 FINDINGS: Median sternotomy wires are unchanged. Dual lead pacemaker is seen. Cardiomegaly is noted. The lungs are clear. No evidence of pleural effusion or pneumothorax. IMPRESSION: No acute chest disease. ACT 112: Negative or not required by law. Electronically signed by: Rufus Mckinley M.D. 10/01/2021 7:03 AM Carotid Doppler Study 10/01/21 13:00 US carotid doppler BI CLINICAL HISTORY: tia symptoms. COMPARISON: None. TECHNIQUE: Robertson scale, Doppler spectral analysis, and color imaging was performed. Stenosis assessment by velocity criteria. FINDINGS: Right CCA velocity (cm/s): 67 Right ICA velocity (cm/s): 103 Right ICA/CCA ratio: 1.5 Right vertebral arterial flow: Antegrade. Right findings: There is no significant atherosclerotic plaquing noted on the right. Left CCA velocity (cm/s): 78 Left ICA velocity (cm/s): 83 Left ICA/CCA ratio: 1.1 Left vertebral arterial flow: Antegrade. Left findings: There is no significant atherosclerotic plaquing noted on the left. IMPRESSION: No significant atherosclerotic plaquing or significant flow limiting stenoses noted by velocity criteria bilaterally. ACT 112: Negative or not required by law. Electronically signed by: Chris Schmidt M.D. 10/01/2021 3:11 PM Chest X-Ray 10/02/21 01:17 XR chest 1V portable CLINICAL HISTORY: SOB, increased o2 requirement s/p pRBC transfusion COMPARISON STUDY: Chest radiograph October 01, 2021. FINDINGS: Median sternotomy wires, prosthetic cardiac valve and dual lead left subclavian pacemaker are in place. Old right-sided rib fractures are noted. Healing proximal humeral fracture with callus formation is noted. Cardiomegaly is unchanged. There has been interval development of interstitial thickening and patchy bilateral airspace opacities. No pneumothorax or pleural effusion is noted. IMPRESSION: Cardiomegaly. Interval development of interstitial thickening and bilateral airspace opacities. The findings favor pulmonary edema however transfusion related acute lung injury could appear similar given the clinical history. ACT 112: Negative or not required by law. Electronically signed by: Dominick Helms M.D. 10/02/2021 6:[address] OF THE ABDOMEN WITHOUT CONTRAST AND CT ANGIOGRAPHY OF THE ABDOMEN CLINICAL HISTORY: anemia, thrombocytopenia, eval bleeding and spleen COMPARISON STUDY: Right upper quadrant ultrasound December 26, 2015. CT of the abdomen and pelvis November 26, 2007. TECHNIQUE: Unenhanced and arterial phase imaging of the abdomen was performed. Intravenous injection of 120 cc of Optiray was uneventful. Sagittal and coronal reconstructions were viewed as well as maximal intensity projections on an independent 3-D workstation. Automated exposure control was utilized for the study. A dose lowering technique was utilized adhering to the principles of ALARA. FINDINGS: Pacer leads are partially imaged. There is a prosthetic aortic valve. Moderate cardiomegaly is noted. There is no pericardial effusion. Small to m oderate right and small left pleural effusions are partially imaged. Associated subpleural opacities favor atelectasis although the lung bases are suboptimally assessed due to respiratory motion. No hemoperitoneum or pneumoperitoneum within the abdomen is present. There is mild hepatosplenomegaly. No perisplenic or perihepatic fluid is present. There is no biliary or pancreatic ductal dilatation. There are calcifications within the pancreatic head. No peripancreatic fluid or stranding is present. There is no hydronephrosis. Caliber and wall thickness of visualized small and large bowel are normal. There is no abdominal lymphadenopathy or ascites. The caliber of the abdominal aorta is normal. There is moderate atherosclerotic plaque of the abdominal aorta and the branch vessels. No significant stenosis of these vessels is present. There is no dissection within the abdominal aorta. No aneurysm within the abdomen is present. IMPRESSION: 1. Mild hepatosplenomegaly. No hemorrhage within the abdomen. No perihepatic or perisplenic fluid. 2. Moderate atherosclerotic plaque within the abdominal aorta and branch vessels. No aneurysm. No significant stenosis within the branch vessels. 3. Small to moderate right and small left pleural fusions with associated subpleural atelectasis. ACT 112: Negative or not required by law. Electronically signed by: Dominick Helms M.D. 10/04/2021 2:14 PM Dictated:10/04/21 1357 Transcribed: 10/04/21 1400 Medications Administered Home Medications finasteride 5 mg tablet 5 mg PO DAILY 01/17/21 [History Confirmed 10/01/21] glipizide 10 mg tablet 20 mg PO BID 01/17/21 [History Confirmed 10/01/21] metoprolol succinate 50 mg tablet,extended release 24 hr 50 mg PO DAILY 01/17/21 [History Confirmed 10/01/21] simvastatin 20 mg tablet 20 mg PO HS 01/17/21 [History Confirmed 10/01/21] tamsulosin 0.4 mg capsule 0.4 mg PO DAILY 01/17/21 [History Confirmed 10/01/21] cyanocobalamin (vitamin B-12) 5,000 mcg capsule 5,000 mcg PO DAILY #30 caps 03/22/21 [Rx Confirmed 10/01/21] furosemide 40 mg tablet 40 mg PO BID #60 tabs 03/22/21 [Rx Confirmed 10/01/21] amoxicillin 500 mg tablet 2,000 mg PO ONCE #20 tabs 07/24/21 [Rx Confirmed 10/01/21] amlodipine 2.5 mg tablet 5 mg PO DAILY 08/28/21 [History Confirmed 10/01/21] warfarin 5 mg tablet 5 mg PO DAILY #100 tabs 09/25/21 [Rx Confirmed 10/01/21] triamcinolone acetonide 0.1 % topical ointment 1 applic topical BID Right Leg Wound 10/01/21 [History Confirmed 10/01/21] Active Medications Acetaminophen (Acetaminophen 325 Mg Tab) 650 mg PO Q4H PRN PRN Reason: Pain or Fever Stop: 10/31/21 12:59 Amlodipine Besylate (Amlodipine Besylate 5 Mg Tab) 5 mg PO DAILY GEETA Stop: 10/31/21 12:59 Last Admin: 10/04/21 08:19 Dose: 5 mg Dextrose (Dextrose 50% 50 Ml Syringe) 25 - 50 ml IV UD PRN; Protocol PRN Reason: Hypoglycemia Protocol Stop: 10/31/21 12:59 Finasteride (Finasteride 5 Mg Tab) 5 mg PO DAILY GEETA Stop: 11/01/21 08:59 Last Admin: 10/04/21 08:19 Dose: 5 mg Furosemide (Furosemide 40 Mg Tab) 40 mg PO BID17 GEETA Stop: 11/02/21 08:59 Last Admin: 10/03/21 16:30 Dose: Not Given Furosemide (Furosemide 40 Mg/4 Ml Vial) 40 mg IV TODAY@0845 [facility] Stop: 10/04/21 20:00 Last Admin: 10/04/21 08:44 Dose: 40 mg Glucagon (Glucagon For Inj 1 Mg Vial) 1 mg SQ UD PRN; Protocol PRN Reason: Hypoglycemia Protocol Stop: 10/31/21 12:59 Glucose (Glucose 40% Gel 15 Gm Tube) 15 - 30 gm PO UD PRN; Protocol PRN Reason: Hypoglycemia Protocol Stop: 10/31/21 12:59 Glucose (Glucose 10 Tab/Tube) 4 - 8 tab PO UD PRN; Protocol PRN Reason: Hypoglycemia Treatment Stop: 10/31/21 12:59 Pantoprazole Sodium 40 mg/ (Syringe) 10 mls @ 5 mls/min IV BID GEETA Stop: 10/31/21 20:59 Last Admin: 10/04/21 08:20 Dose: 5 mls/min Sodium Chloride (Nss) 250 mls @ 15 mls/hr IV .[id number] PRN PRN Reason: For Transfusion Stop: 10/04/21 18:14 Insulin Aspart (Insulin Aspart Per Unit) 0 units SC ACHS GEETA Stop: 10/31/21 12:59 Last Admin: 10/04/21 12:30 Dose: 11 units Insulin Glargine (Lantus Per Unit Charge) 5 units SQ HS [facility] Stop: 11/01/21 20:59 Last Admin: 10/03/21 21:00 Dose: 5 units Metoprolol Succinate (Metoprolol Succ 50mg Ext Rel Tab) 50 mg PO DAILY GEETA Stop: 11/01/21 08:59 Last Admin: 10/04/21 08:20 Dose: 50 mg Miscellaneous (Carbohydrates For Hypoglycemia ) 15 - 30 gm PO UD PRN PRN Reason: Hypoglycemia Protocol Stop: 10/31/21 12:59 Simvastatin (Simvastatin 20 Mg Tab) 20 mg PO HS [facility] Stop: 10/31/21 20:59 Last Admin: 10/03/21 20:59 Dose: 20 mg Triamcinolone Acetonide (Triamcinolone Acet 0.1% Oint 15 Gm Tube) 1 appln TOP BID GEETA Stop: 10/31/21 20:59 Last Admin: 10/04/21 08:20 Dose: 1 appln PG Care Time/CCT Total # of Minutes Spent Total Time Spent with Patient: Total time spent is greater than 50% in coordination of care (as documented) at patient's floor/unit and/or counseling patient: Coding Level of Care Code 46035 Subseq Hosp Care Lvl 3 Diagnoses Confusion R41.0 Anemia D64.9 Hypoxia R09.02 Hypocalcemia E83.51 Pacemaker Z95.0 S/P TAVR (transcatheter aortic valve replacement) Z95.2 CKD (chronic kidney disease) stage 3, GFR 30-59 ml/min N18.30 CAD (coronary atherosclerotic disease) I25.810 Associated angina: unspecified whether angina present Coronary Disease-Associated Artery/Lesion type: bypass graft [place] vs. transplanted heart: [place] heart Anticoagulant long-term use Z79.01 HTN (hypertension) I10 DM II (diabetes mellitus, type II), controlled E11.9 Electrolyte abnormality E87.8 HF (heart failure), diastolic I50.30 Elevated troponin R77.8 (1) CAD (coronary atherosclerotic disease) Associated angina: unspecified whether angina present Coronary Disease- Associated Artery/Lesion type: bypass graft [place] vs. transplanted heart: [place] heart Qualified Code(s): I25.810 - Atherosclerosis of coronary artery bypass graft(s) without angina pectoris
[2021-10-04] MEDS ORDERED: OPTIRAY 320 125ml IV ONE (12:58)
--- NOTE | 2021-10-04 14:16 | CT Scan Report ---
CT OF THE ABDOMEN WITHOUT CONTRAST AND CT ANGIOGRAPHY OF THE ABDOMEN CLINICAL HISTORY: anemia, thrombocytopenia, eval bleeding and spleen COMPARISON STUDY: Right upper quadrant ultrasound December 26, 2015. CT of the abdomen and pelvis Nov. TECHNIQUE: Unenhanced and arterial phase imaging of the abdomen was performed. Intravenous injection of 120 cc of Optiray was uneventful. Sagittal and coronal reconstructions were viewed as well as maxi mal intensity projections on an independent 3-D workstation. Automated exposure control was utilized for the study. A dose lowering technique was utilized adhering to the principles of ALARA. FINDINGS: Pacer leads are partially imaged. There is a prosthetic aortic valve. Moderate cardiomegaly is noted. There is no pericardial effusion. Small to moderate right and small left pleural effusions are partially imaged. Associated subpleural opacities favor atelectasis although the lung bases are suboptimally assessed due to respiratory motion. No hemoperitoneum or pneumoperitoneum within the abd omen is present. There is mild hepatosplenomegaly. No perisplenic or perihepatic fluid is present. Th ere is no biliary or pancreatic ductal dilatation. There are calcifications within the pancreatic hea d. No peripancreatic fluid or stranding is present. There is no hydronephrosis. Caliber and wall thic kness of visualized small and large bowel are normal. There is no abdominal lymphadenopathy or ascite s. The caliber of the abdominal aorta is normal. There is moderate atherosclerotic plaque of the abdo new aorta and the branch vessels. No significant stenosis of these vessels is present. There is no dissection within the abdominal aorta. No aneurysm within the abdomen is present. IMPRESSION: 1. Mild hepatosplenomegaly. No hemorrhage within the abdomen. No perihepatic or perisplenic fluid. 2. Moderate atherosclerotic plaque within the abdominal aorta and branch vessels. No aneurysm. No sig nificant stenosis within the branch vessels. 3. Small to moderate right and small left pleural fusions with associated subpleural atelectasis. ACT 112: Negative or not required by law. Electronically signed by: Dominick Helms M.D. 10/04/2021 2:14 PM
[2021-10-04 14:59] LABS: Iron 54 mcg/dl (35-175); Total Iron Binding Cap Calc 199 mcg/dl (250-450); Transferrin (FE) Percent Satur 27 % (20-50); Unsaturated Iron Binding Cap 145 mcg/dl (155-355)
[2021-10-04] MEDS ORDERED: CALCIUM GLUCONATE 10% 1,000 MG in DEXTROSE 5% 50 ML IV ONE (17:58)
[2021-10-04] MEDS: SIMVASTATIN 20 MG TAB PO SCH (20:45)
[2021-10-04] MEDS: LANTUS PER UNIT CHARGE SQ SCH (20:46)
[2021-10-05 06:23] LABS: Hematocrit (blood only) 27.8 % (40.1-51.0); Mean Corpuscular Hemoglobin 27.4 pg (25.0-34.0); Mean Corpuscular Hgb Conc 32.4 g/dL (32.0-36.0); Mean Corpuscular Volume 84.8 fL (80.0-100.0); Platelet Count 90 K/uL (130-400); RDW Coefficient of Variation 16.3 % (11.5-14.5); RDW Standard Deviation 50.4 fL (36.4-46.3); Red Blood Count 3.28 M/uL (4.63-6.08); White Blood Count 5.08 K/ul (4.8-10.8)
[2021-10-05 06:34] LABS: INR 1.5 (0.9-1.1); Prothrombin Time 15.5 Seconds (9.0-12.0)
[2021-10-05 07:02] LABS: Calcium 8.1 mg/dl (8.5-10.1); Creatinine Clr Calc Pharmacy 36.7 ml/min; Est GFR (African American) 50.2 ml/min; Est GFR (Non-African American) 43.3 ml/min; Potassium 3.5 mmol/L (3.5-5.1)
[2021-10-05 07:14] LABS: Ferritin 400.8 ng/ml (8-388)
[2021-10-05 07:20] LABS: Folate (Folic Acid) 5.76 ng/ml (>5.38)
[2021-10-05] MEDS: METOPROLOL SUCC 50MG EXT REL TAB PO SCH (07:51)
[2021-10-05] MEDS: amLODIPine BESYLATE 5 MG TAB PO SCH (07:51)
[2021-10-05] MEDS: FINASTERIDE 5 MG TAB PO SCH (07:51)
[2021-10-05] MEDS: FUROSEMIDE 40 MG TAB PO SCH ×2 (07:51→17:56)
[2021-10-05] MEDS: TRIAMCINOLONE ACET 0.1% OINT 15 GM TUBE TOP SCH ×2 (07:52→20:26)
[2021-10-05] MEDS: PANTOprazole 40 MG in SYRINGE 0 ML IV SCH (07:52)
[2021-10-05] MEDS: INSULIN ASPART PER UNIT SC SCH ×4 (08:20→20:26)
--- NOTE | 2021-10-05 09:19 | Hospitalist Progress Note ---
Date of Service October 05, 2021 Assessment & Plan (1) Anemia: Plan: Acute blood loss anemia on AOCD - HGB 7.6 with report of dark stools with decreased appetite and without epigastric pain - Likely associated with blood loss from likely UGIB- however EGD without source of bleeding - Continue Protonix- change to oral 40mg BID 10/05 - Hold Warfarin at this time- INR down to 1.5 today - HGB downtrend 10/05 continue to hold warfarin - EGD on 10/04 can restart coumadin if stable on 10/07 per GI - No acute bleed noted on EGD- If downtrends again consider re-consulting GI for colo- - Thrombocytopenia improving- likely related to vitamin B12 deficiency -Start B12 1000 mcg - 10/05 -Also with borderline folate deficiency-start folic acid 1mg daily 10/05 If HGB remains stable overnight and able to restart coumadin within next 48 hours cand discharge- if downtrend on 10/06 re-consult GI for colo (2) Hypocalcemia: Plan: Mild on admission and likely worsened with PRBC infusion - will replace now with 1 GM - If bleeding continues or requires more PRBC administer 1GM - Replaced 10/04/21 following PRBC - 1 GM calcium gluconate (3) Pacemaker: Plan: [employer] Hilda XT MRI [id number] Atrial Lead CasureFix Novus MRI Septal SelectSecure Appropriate AV sense with appropriate fire and capture of ventricle Miode DDD with mode switch at 171 - Low rate 60 - upper track 130 AT/AF >171 VT >150 (4) S/P TAVR (transcatheter aortic valve replacement): Plan: performed at [facility] [place] 05/14 - Repeat ECHOs with improvement in aortic valve velocities - Remains on Warfarin with plan of discontinuing this in November s/p TAVR "unless another indication" and patient does have Afib-defer to Cardiology outpt (5) CKD (chronic kidney disease) stage 3, GFR 30-59 ml/min: Plan: Baseline [employer] 1.4-1.6 - stable and down to 1.25 today with diruesing - likely will need either diuretic increased on dc or better adherance to diet with sodium restriction - diurese as above - down trend following initial diuresis and remains within his baseline - avoid further nephrotoxic medications as able - follow as above (6) CAD (coronary atherosclerotic disease): Plan: CABG 2007 with cath 01/13 severe left main disease with patent grafts - As above- continue with BB and BP control - Trend HScTNI- no acute change (7) Anticoagulant long-term use: Plan: Secondary to Afib- s/p TAVR and DDD pacemaker - does not need for TAVR after November, but has a h/o PAF and needs Coumadin for that - Hold as above - INR down to 1.5 this morning - consider Vitamin K if desired by GI but will recheck in the AM - HGB level stable 10/05- 3 days post EGD restart Coumadin is GI recommendation (8) HF (heart failure), diastolic: Plan: Chronic HFpEF will need some IV diuresing as above follow volume status combination of lower extremity edema likely related to low albumin, age, decrease overall function at home - Diurese as above - As above not acute- IV diureses undertook for better pharmacokinetics in setting of anemia and transfusions (9) DM II (diabetes mellitus, type II), controlled: Plan: Hold oral agents - transition to Sliding Scale Insulin- Aspart with CF 20 add on carb ratio added 1:10--> decrease to 18 - Goal <180 - hypoglycemic protocol -A1C 6.9 -add on Lantus 5 units hs for hyperglycemia (10) HTN (hypertension): Plan: As above (11) Electrolyte abnormality: Plan: Hyponatremic and hypochloremic with edema to bilateral lower extremities- will diurese now with IV lasix and likely repeat if needed - likely hypervolemic hyponatremic complicated by decrease solute intake with decrease oral food intake - NA increase to 133 should continue to increase with diuretics Hypomag- replete with 3 GM IV Magnesium 1.6 as above diarrhea plus decrease food intake - improved to 2.0 iCA 1.15 follow (12) Hypoxia: Plan: Acute event following blood transfusion with CXR with pulmonary edema and in the setting of blood transfusion- TACO - [place] without respiratory failure - he was diuresed x2 since that time and supported with oxygen therapy which has since been weaned off which is more indicative of TACO -await transfusion reaction workup as per Pathology - Intake and output poorly tracked through the PM so un-helpful with total net goal - 40mg Lasix given this morning follow renal function and re-eval - NC placed overnight and weaned off this morning. As above improved with conservative treatment consistent with TACO - Diurese today following EGD RESOLVED (13) Confusion: Plan: Acute temporary confusion time frame is difficult to establish as well as length of symptoms as patient still has no recollection of event or why he came to the EMD - DDX: Anemia vs. tia vs. TGA vs. infectious vs. other/aging - improved on HD#1 morning with increase in hemoglobin counts- making anemia likely contributing factor - Continue to follow through hospital stay and following sedation if EGD pursued - carotid dopplers performed on admission negative - No acute events overnight and no further episodes As this is now resolved this was likely most related to his anemia Resolved (14) Elevated troponin: Plan: Likely demand elevation as asymptomatic and related to his underlying structural heart disease - trend HScTNI - no acute intervention at this time - Continue BB- did not take medications this morning- will give 50mg Metoprolol now - Continue with BP control with amlodipine as hemodynamics allow Downtrend following admission was checked with his hypoxia in the middle of night and uptrended to 37 remains without complaints of chest pain Resolved (15) Vitamin B12 deficiency (dietary) anemia: Plan: As above Plan Family updated via phone all questions answered and plan of care reviewed Follow HGB and INR- GI follow up as outpatient if no colonoscopy as inpatient- depends on HGB Admission and Anticipated Discharge Date Admission Date: October 02, 2021 Supervising Physician Co-Signing Physician Notes WOMEN NURSE Supervision Note: I did not personally see or examine the patient today, but I verified all martinez points of LEA Doss's assessment and plan with the following exceptions/additions: None Subjective HD #3 following admission for weakness and anemia found on admission associated with dark stools. He has received 2 units of PRBC while in the hospital- HD #1 and HD#3. HD #1 had event noted for concern of respiratory insufficiency following 1 unit of PRBCs, requiring oxygenation and re-dose of diuretics- consistent with Pulmonary edema or TACO as this responded conservatively with diuresing. No events following 2nd unit of PRBC. No events noted overnight. Cardiology risk evaluation completed, patient remains NPO and proceeded with EGD- this was notable for mild thrush esophagitis, and no source of bleeding found. His HGB level this morning on 10/05 up to 9.2 and his platlet count is back up to 90s. There has been no change in his bowel movements or abdominal exam. CTA of the abdomen performed with no bleeding and mild hepatosplenomegaly. Started B12 injections and Folate 10/05. INR 1.5 Review of Systems Review of Systems: REVIEW OF SYSTEMS: Constitutional: No fever, sweats or chills Eyes: No diplopia, no worsening or blurred vision ENT: (+) difficulty hearing, no trouble swallowing Respiratory: No cough, sputum, dyspnea at rest or on exertion Cardiovascular: (+) lower extremity edema, No chest pain, tightness or palpitations Abdomen: (+) blood streak stool 10/04, resolving this morning to normal color, No pain, nausea, vomiting, diarrhea or constipation Musculoskeletal: (+) right shoulder joint pain, Neurologic: No weakness, numbness/tingling, or balance problems Psychiatric: No anxiety or depression Skin: (+) bruising Physical Exam Physical Exam: PHYSICAL EXAM: General: awake, alert, no apparent distress, improved cognitive function and interaction this morning Head: Normocephalic, atraumatic ENT: PERRLA, EOMI, no pharyngeal exudate, mucous membranes moist Neuro: AAO x 3, speech clear and appropriate, strength intact bilaterally 5/5, sensation intact and equal all extremities and dermatomes, no pronator drift, Chest: equal rise and fall of the chest, no accessory muscle use, no heaves or thrills, scattered crackles in bases Cardiac: Regular rate and rhythm, telemetry reviewed- V pace, skin warm dry, cap refill <3 seconds, peripheral pulses +2 no JVD, +3 edema to lower feet and ankles : Spontaneously voiding, no pain, no CVA tenderness, GI: Blood streaked stool yesterday (small amount), loose brown BM x2 10/04 Psych: Normal mood and affect Skin: bruising to hands, right rib, and subxiphoid Results & Data Results & Data ([facility]) Vital Signs (Past 12 Hours) Vital Signs Temp Pulse Pulse Resp BP Pulse Ox O2 Del Method 10/05/21 08:13 36.4 C L 79 18 185/76 H 95 Nasal Cannula 10/05/21 04:00 36.4 C L 87 20 169/73 H 94 Nasal Cannula 10/04/21 23:00 36.3 C L 66 18 147/69 H 94 Room Air 10/04/21 22:20 68 O2 Flow Rate 10/05/21 08:13 2 10/05/21 04:00 2 10/04/21 23:00 10/04/21 22:20 Laboratory Results Abnormal lab results 10/01/21 10/04/21 10/04/21 Range/Units 10:14 06:35 11:48 RBC (4.63-6.08) M/uL Hgb (14.0-18.0) g/dl Hct (40.1-51.0) % RDW Std Deviation (36.4-46.3) fL RDW Coeff of Jose A (11.5-14.5) % Plt Count (130-400) K/uL PT (9.0-12.0) Seconds INR (0.9-1.1) Sodium (136-145) mmol/L BUN (6-23) mg/dl Creatinine (0.6-1.4) mg/dl Glucose (70-99(Fasting)) mg/dl POC Glucose 250 H (70-99) mg/dl Calcium (8.5-10.1) mg/dl TIBC 199 L (250-450) mcg/dl Unsaturated IBC 145 L (155-355) mcg/dl Ferritin (8-388) ng/ml Vitamin B12 (180-914) pg/ml Crossmatch See Detail 10/04/21 10/04/21 10/05/21 Range/Units 16:53 20:12 05:37 RBC (4.63-6.08) M/uL Hgb (14.0-18.0) g/dl Hct (40.1-51.0) % RDW Std Deviation (36.4-46.3) fL RDW Coeff of Jose A (11.5-14.5) % Plt Count (130-400) K/uL PT (9.0-12.0) Seconds INR (0.9-1.1) Sodium (136-145) mmol/L BUN (6-23) mg/dl Creatinine (0.6-1.4) mg/dl Glucose (70-99(Fasting)) mg/dl POC Glucose 149 H 178 H (70-99) mg/dl Calcium (8.5-10.1) mg/dl TIBC (250-450) mcg/dl Unsaturated IBC (155-355) mcg/dl Ferritin (8-388) ng/ml Vitamin B12 167 L (180-914) pg/ml Crossmatch 10/05/21 10/05/21 10/05/21 Range/Units 05:37 05:37 05:37 RBC 3.28 L (4.63-6.08) M/uL Hgb 9.0 L (14.0-18.0) g/dl Hct 27.8 L (40.1-51.0) % RDW Std Deviation 50.4 H (36.4-46.3) fL RDW Coeff of Jose A 16.3 H (11.5-14.5) % Plt Count 90 L (130-400) K/uL PT 15.5 H (9.0-12.0) Seconds INR 1.5 H (0.9-1.1) Sodium 134 L (136-145) mmol/L BUN 29 H (6-23) mg/dl Creatinine 1.45 H (0.6-1.4) mg/dl Glucose 136 H (70-99(Fasting)) mg/dl POC Glucose (70-99) mg/dl Calcium 8.1 L (8.5-10.1) mg/dl TIBC (250-450) mcg/dl Unsaturated IBC (155-355) mcg/dl Ferritin 400.8 H (8-388) ng/ml Vitamin B12 (180-914) pg/ml Crossmatch 10/05/21 Range/Units 07:45 RBC (4.63-6.08) M/uL Hgb (14.0-18.0) g/dl Hct (40.1-51.0) % RDW Std Deviation (36.4-46.3) fL RDW Coeff of Jose A (11.5-14.5) % Plt Count (130-400) K/uL PT (9.0-12.0) Seconds INR (0.9-1.1) Sodium (136-145) mmol/L BUN (6-23) mg/dl Creatinine (0.6-1.4) mg/dl Glucose (70-99(Fasting)) mg/dl POC Glucose 168 H (70-99) mg/dl Calcium (8.5-10.1) mg/dl TIBC (250-450) mcg/dl Unsaturated IBC (155-355) mcg/dl Ferritin (8-388) ng/ml Vitamin B12 (180-914) pg/ml Crossmatch Diagnostic Findings Abdomen CTA 10/04/21 07:54 CT OF THE ABDOMEN WITHOUT CONTRAST AND CT ANGIOGRAPHY OF THE ABDOMEN CLINICAL HISTORY: anemia, thrombocytopenia, eval bleeding and spleen COMPARISON STUDY: Right upper quadrant ultrasound December 26, 2015. CT of the abdomen and pelvis November 26, 2007. TECHNIQUE: Unenhanced and arterial phase imaging of the abdomen was performed. Intravenous injection of 120 cc of Optiray was uneventful. Sagittal and coronal reconstructions were viewed as well as maximal intensity projections on an independent 3-D workstation. Automated exposure control was utilized for the study. A dose lowering technique was utilized adhering to the principles of ALARA. FINDINGS: Pacer leads are partially imaged. There is a prosthetic aortic valve. Moderate cardiomegaly is noted. There is no pericardial effusion. Small to moderate right and small left pleural effusions are partially imaged. Associated subpleural opacities favor atelectasis although the lung bases are suboptimally assessed due to respiratory motion. No hemoperitoneum or pneumoperitoneum within the abdomen is present. There is mild hepatosplenomegaly. No perisplenic or perihepatic fluid is present. There is no biliary or pancreatic ductal dilatation. There are calcifications within the pancreatic head. No peripancreatic fluid or stranding is present. There is no hydronephrosis. Caliber and wall thickness of visualized small and large bowel are normal. There is no abdominal lymphadenopathy or ascites. The caliber of the abdominal aorta is normal. There is moderate atherosclerotic plaque of the abdominal aorta and the branch vessels. No significant stenosis of these vessels is present. There is no dissection within the abdominal aorta. No aneurysm within the abdomen is present. IMPRESSION: 1. Mild hepatosplenomegaly. No hemorrhage within the abdomen. No perihepatic or perisplenic fluid. 2. Moderate atherosclerotic plaque within the abdominal aorta and branch vessels. No aneurysm. No significant stenosis within the branch vessels. 3. Small to moderate right and small left pleural fusions with associated subpleural atelectasis. ACT 112: Negative or not required by law. Electronically signed by: Dominick Helms M.D. 10/04/2021 2:14 PM Medications Administered Amlodipine Besylate (Amlodipine Besylate 5 Mg Tab) 5 mg PO DAILY GEETA Stop: 10/31/21 12:59 Last Admin: 10/05/21 07:51 Dose: 5 mg Documented By: Admin: 10/04/21 08:19 Dose: 5 mg Documented By: [id number] Admin: 10/03/21 13:15 Dose: 5 mg Documented By: [id number] Admin: 10/02/21 07:14 Dose: 5 mg Documented By: Admin: 10/01/21 16:05 Dose: Not Given Documented By: JEFF Finasteride (Finasteride 5 Mg Tab) 5 mg PO DAILY GEETA Stop: 11/01/21 08:59 Last Admin: 10/05/21 07:51 Dose: 5 mg Documented By: Admin: 10/04/21 08:19 Dose: 5 mg Documented By: [id number] Admin: 10/03/21 13:15 Dose: 5 mg Documented By: [id number] Admin: 10/02/21 07:14 Dose: 5 mg Documented By: JEFF Furosemide (Furosemide 40 Mg Tab) 40 mg PO BID17 GEETA Stop: 11/02/21 08:59 Last Admin: 10/05/21 07:51 Dose: 40 mg Documented By: Admin: 10/03/21 16:30 Dose: Not Given Documented By: [id number] Admin: 10/03/21 13:15 Dose: 40 mg Documented By: [id number] Pantoprazole Sodium 40 mg/ (Syringe) 10 mls @ 5 mls/min IV BID GEETA Stop: 10/31/21 20:59 Last Admin: 10/05/21 07:52 Dose: 5 mls/min Documented By: Admin: 10/04/21 20:45 Dose: 5 mls/min Documented By: Admin: 10/04/21 08:20 Dose: 5 mls/min Documented By: [id number] Admin: 10/03/21 21:00 Dose: 5 mls/min Documented By: Admin: 10/03/21 08:35 Dose: 5 mls/min Documented By: [id number] Admin: 10/02/21 21:41 Dose: 5 mls/min Documented By: Admin: 10/02/21 07:14 Dose: 5 mls/min Documented By: Admin: 10/01/21 21:59 Dose: 5 mls/min Documented By: BARBARA Insulin Aspart (Insulin Aspart Per Unit) 0 units SC ACHS GEETA Stop: 10/31/21 12:59 Last Admin: 10/05/21 08:20 Dose: 8 units Documented By: [email or web address] Co-signed By: NAZARIO Admin: 10/04/21 20:46 Dose: 3 units Documented By: JOANA Co-signed By: JHONATAN Admin: 10/04/21 17:40 Dose: 9 units Documented By: [id number] Co-signed By: ANDREW Admin: 10/04/21 12:30 Dose: 11 units Documented By: [id number] Co-signed By: AMANDA Admin: 10/04/21 08:24 Dose: 7 units Documented By: [id number] Co-signed By: ANNE Admin: 10/03/21 21:01 Dose: Not Given Documented By: JULIA Co-signed By: CAMERON Admin: 10/03/21 17:42 Dose: 14 units Documented By: [id number] Co-signed By: ANDREW(2) Admin: 10/03/21 15:36 Dose: Not Given Documented By: [id number] Co-signed By: ANDREW Admin: 10/03/21 08:45 Dose: 4 units Documented By: [id number] Co-signed By: ANDREW Admin: 10/02/21 21:38 Dose: 4 units Documented By: JULIA Co-signed By: CAMERON Admin: 10/02/21 17:21 Dose: 7 units Documented By: [id number] Co-signed By: PEDRO Admin: 10/02/21 12:17 Dose: 3 units Documented By: DLViktor Co-signed By: ANDREW(2) Admin: 10/02/21 08:23 Dose: 3 units Documented By: JEFF Co-signed By: YVONNE Admin: 10/01/21 21:59 Dose: 4 units Documented By: BARBARA Co-signed By: SKYLER Admin: 10/01/21 17:21 Dose: 7 units Documented By: JEFF Co-signed By: PEDRO Admin: 10/01/21 16:06 Dose: Not Given Documented By: DLViktor Co-signed By: BETZAIDA Insulin Glargine (Lantus Per Unit Charge) 5 units SQ HS GEETA Stop: 11/01/21 20:59 Last Admin: 10/04/21 20:46 Dose: 5 units Documented By: JOANA Co-signed By: JHONATAN Admin: 10/03/21 21:00 Dose: 5 units Documented By: JULIA Co-signed By: SURY Admin: 10/02/21 21:38 Dose: 5 units Documented By: JULIA Co-signed By: SURY Metoprolol Succinate (Metoprolol Succ 50mg Ext Rel Tab) 50 mg PO DAILY GEETA Stop: 11/01/21 08:59 Last Admin: 10/05/21 07:51 Dose: 50 mg Documented By: Admin: 10/04/21 08:20 Dose: 50 mg Documented By: [id number] Admin: 10/03/21 11:11 Dose: Not Given Documented By: [id number] Admin: 10/02/21 07:14 Dose: 50 mg Documented By: JEFF Simvastatin (Simvastatin 20 Mg Tab) 20 mg PO HS GEETA Stop: 10/31/21 20:59 Last Admin: 10/04/21 20:45 Dose: 20 mg Documented By: Admin: 10/03/21 20:59 Dose: 20 mg Documented By: Admin: 10/02/21 21:41 Dose: 20 mg Documented By: Admin: 10/01/21 22:00 Dose: 20 mg Documented By: BARBARA Triamcinolone Acetonide (Triamcinolone Acet 0.1% Oint 15 Gm Tube) 1 appln TOP BID GEETA Stop: 10/31/21 20:59 Last Admin: 10/05/21 07:52 Dose: Not Given Documented By: Admin: 10/04/21 20:48 Dose: 1 appln Documented By: Admin: 10/04/21 08:20 Dose: 1 appln Documented By: [id number] Admin: 10/03/21 20:59 Dose: 1 appln Documented By: Admin: 10/03/21 08:36 Dose: 1 appln Documented By: [id number] Admin: 10/02/21 23:59 Dose: Not Given Documented By: Admin: 10/02/21 07:14 Dose: Not Given Documented By: Admin: 10/01/21 22:04 Dose: Not Given Documented By: BARBARA Discontinued Medications Furosemide (Furosemide Inj 20 Mg/2 Ml Vial) 20 mg IV ONE ONE Stop: 10/01/21 10:12 Last Admin: 10/01/21 11:21 Dose: Not Given Documented By: JESSICA Furosemide (Furosemide 40 Mg/4 Ml Vial) Confirm Administered Dose 40 mg IV .STK- MED ONE Stop: 10/01/21 10:16 Last Admin: 10/01/21 10:18 Dose: 20 mg Documented By: JESSICA Furosemide (Furosemide Inj 20 Mg/2 Ml Vial) 20 mg IV ONE ONE Stop: 10/01/21 21:01 Last Admin: 10/02/21 01:01 Dose: 20 mg Documented By: BARBARA Furosemide (Furosemide Inj 20 Mg/2 Ml Vial) 20 mg IV ONE ONE Stop: 10/02/21 02:36 Last Admin: 10/02/21 02:59 Dose: 20 mg Documented By: BARBARA Furosemide (Furosemide 40 Mg/4 Ml Vial) 40 mg IV ONE ONE Stop: 10/02/21 07:46 Last Admin: 10/02/21 08:23 Dose: 40 mg Documented By: JEFF Furosemide (Furosemide 40 Mg/4 Ml Vial) 40 mg IV TODAY@0845 GEETA Stop: 10/04/21 20:00 Last Admin: 10/04/21 08:44 Dose: 40 mg Documented By: [id number] Magnesium Sulfate/Dextrose (Magnesium Sulfate / D5w) 1 gm in 100 mls @ 100 mls/hr IV NOW STA Stop: 10/01/21 06:13 Last Infusion: 10/01/21 06:52 Dose: 0 mls/hr Documented By: Admin: 10/01/21 05:58 Dose: 100 mls/hr Documented By: MARYA Magnesium Sulfate/Dextrose (Magnesium Sulfate / D5w) 1 gm in 100 mls @ 50 mls/hr IV Q2H GEETA Stop: 10/01/21 13:44 Last Infusion: 10/01/21 11:00 Dose: 0 mls/hr Documented By: Admin: 10/01/21 10:18 Dose: 50 mls/hr Documented By: Infusion: 10/01/21 10:17 Dose: 0 mls/hr Documented By: Admin: 10/01/21 09:49 Dose: 50 mls/hr Documented By: JESSICA Pantoprazole Sodium 40 mg/ (Syringe) 10 mls @ 5 mls/min IV NOW ONE Stop: 10/01/21 10:21 Last Admin: 10/01/21 11:25 Dose: 5 mls/min Documented By: JESSICA Calcium Gluconate 1,000 mg/ (Dextrose) 60 mls @ 240 mls/hr IV 0800 ONE Stop: 10/02/21 08:14 Last Infusion: 10/02/21 08:41 Dose: 0 mls/hr Documented By: Admin: 10/02/21 08:23 Dose: 240 mls/hr Documented By: JEFF Calcium Gluconate 1,000 mg/ (Dextrose) 60 mls @ 240 mls/hr IV NOW ONE Stop: 10/02/21 13:29 Last Infusion: 10/02/21 14:23 Dose: 0 mls/hr Documented By: Admin: 10/02/21 13:56 Dose: 240 mls/hr Documented By: JEFF Calcium Gluconate 1,000 mg/ (Dextrose) 60 mls @ 240 mls/hr IV ONE ONE Stop: 10/04/21 18:12 Last Infusion: 10/04/21 19:00 Dose: 0 mls/hr Documented By: Admin: 10/04/21 18:31 Dose: 240 mls/hr Documented By: [id number] Ioversol (Optiray 320 125ml) 120 ml IV ONCE ONE Stop: 10/04/21 12:59 Last Admin: 10/04/21 12:59 Dose: 120 ml Documented By: OLENA Levalbuterol HCl (Levalbuterol Hcl 0.63 Mg/3 Ml Neb) 0.63 mg NEB NOW STA; Protocol Stop: 10/02/21 01:18 Last Admin: 10/02/21 01:55 Dose: 0.63 mg Documented By: BWCem Lidocaine HCl (Lidocaine 2% Mpf Local 5 Ml Vial) Confirm Administered Dose 5 ml INFIL .STK-MED ONE Stop: 10/03/21 11:50 Last Admin: 10/03/21 13:27 Dose: Not Given Documented By: [id number] Metoprolol Succinate (Metoprolol Succ 50mg Ext Rel Tab) 50 mg PO NOW STA Stop: 10/01/21 11:17 Last Admin: 10/01/21 12:50 Dose: 50 mg Documented By: LISSETH Metoprolol Tartrate (Metoprolol Tartrate 1 Mg/Ml Vial) 5 mg IV NOW STA Stop: 10/03/21 08:11 Last Admin: 10/03/21 08:34 Dose: 5 mg Documented By: [id number] Potassium Chloride (Potassium Chloride Crtab 20 Meq Tabcr) 20 meq PO NOW STA Stop: 10/04/21 08:24 Last Admin: 10/04/21 09:27 Dose: 20 meq Documented By: [id number] Propofol (Propofol Iv Emulsion 10 Mg/Ml 20 Ml Vial) Confirm Administered Dose 200 mg IV .STK-MED ONE Stop: 10/03/21 11:50 Last Admin: 10/03/21 13:28 Dose: Not Given Documented By: [id number] PG Care Time/CCT Total # of Minutes Spent Total Time Spent with Patient: Total time spent is greater than 50% in coordination of care (as documented) at patient's floor/unit and/or counseling patient: Coding Level of Care Code 47302 Subseq Hosp Care Lvl 3 Diagnoses Anemia D64.9 Hypocalcemia E83.51 Pacemaker Z95.0 S/P TAVR (transcatheter aortic valve replacement) Z95.2 CKD (chronic kidney disease) stage 3, GFR 30-59 ml/min N18.30 CAD (coronary atherosclerotic disease) I25.810 Associated angina: unspecified whether angina present Coronary Disease-Associated Artery/Lesion type: bypass graft [place] vs. transplanted heart: lummi heart Anticoagulant long-term use Z79.01 HF (heart failure), diastolic I50.30 DM II (diabetes mellitus, type II), controlled E11.9 HTN (hypertension) I10 Electrolyte abnormality E87.8 Hypoxia R09.02 Confusion R41.0 Elevated troponin R77.8 Vitamin B12 deficiency (dietary) anemia D51.8 (1) CAD (coronary atherosclerotic disease) Associated angina: unspecified whether angina present Coronary Disease- Associated Artery/Lesion type: bypass graft [place] vs. transplanted heart: lummi heart Qualified Code(s): I25.810 - Atherosclerosis of coronary artery bypass graft(s) without angina pectoris
[2021-10-05] MEDS: CYANOCOBALAMIN 1000 MCG/ML VIAL IM SCH (10:26)
[2021-10-05] MEDS: FOLIC ACID 1 MG TAB PO SCH (10:26)
[2021-10-05] MEDS: SIMVASTATIN 20 MG TAB PO SCH (20:26)
[2021-10-05] MEDS: PANTOprazole 40 MG TAB PO SCH (20:26)
[2021-10-05] MEDS: LANTUS PER UNIT CHARGE SQ SCH (20:27)
[2021-10-06] MEDS: INSULIN ASPART PER UNIT SC SCH ×4 (08:16→21:11)
[2021-10-06] MEDS: CYANOCOBALAMIN 1000 MCG/ML VIAL IM SCH (08:17)
[2021-10-06] MEDS: PANTOprazole 40 MG TAB PO SCH ×2 (08:17→20:10)
[2021-10-06] MEDS: FOLIC ACID 1 MG TAB PO SCH (08:17)
[2021-10-06] MEDS: FUROSEMIDE 40 MG TAB PO SCH ×2 (08:17→17:48)
[2021-10-06] MEDS: METOPROLOL SUCC 50MG EXT REL TAB PO SCH (08:17)
[2021-10-06] MEDS: amLODIPine BESYLATE 5 MG TAB PO SCH (08:17)
[2021-10-06] MEDS: FINASTERIDE 5 MG TAB PO SCH (08:17)
[2021-10-06] MEDS: TRIAMCINOLONE ACET 0.1% OINT 15 GM TUBE TOP SCH ×2 (08:22→20:10)
[2021-10-06 08:56] LABS: Basophils # (auto) 0.01 K/uL (0-0.2); Basophils % (auto) 0.2 %; Eosinophils # (auto) 0.03 K/uL (0-0.50); Eosinophils % (auto) 0.6 %; Hematocrit (blood only) 27.8 % (40.1-51.0); Hemoglobin 8.9 g/dl (14.0-18.0); Immature Granulocytes # (auto) 0.03 K/uL (0.00-0.02); Immature Granulocytes % (auto) 0.6 %; Lymphocytes # (auto) 0.34 K/uL (1.2-3.4); Mean Platelet Volume 10.3 fL (9.4-12.4); Monocytes # (auto) 0.24 K/uL (0.24-0.82); Monocytes % (auto) 4.9 %; Neutrophils # (auto) 4.24 K/uL (1.4-6.5); Neutrophils % (auto) 86.7 %; Platelet Count 92 K/uL (130-400); White Blood Count 4.89 K/ul (4.8-10.8)
[2021-10-06 09:19] LABS: Mean Corpuscular Hemoglobin 27.4 pg (25.0-34.0); Mean Corpuscular Volume 85.5 fL (80.0-100.0); Polychromasia 1+; RDW Coefficient of Variation 16.2 % (11.5-14.5); RDW Standard Deviation 49.9 fL (36.4-46.3); Red Blood Count 3.25 M/uL (4.63-6.08); Tear Drop Cells 1+
[2021-10-06 09:21] LABS: BUN Creatinine Ratio 22.9 (10-20); Calcium 8.2 mg/dl (8.5-10.1); Creatinine Clr Calc Pharmacy 40.6 ml/min; Est GFR (African American) 56.7 ml/min; Magnesium 1.8 mg/dl (1.7-2.4); Potassium 3.6 mmol/L (3.5-5.1)
--- NOTE | 2021-10-06 11:35 | Hospitalist Progress Note ---
Date of Service October 06, 2021 Assessment & Plan (1) Anemia: Plan: Acute blood loss anemia on AOCD - HGB 7.6 with report of dark stools with decreased appetite and without epigastric pain - Likely associated with blood loss from likely UGIB- however EGD without source of bleeding-likely somewhere in small bowel - Continue Protonix 40mg po BID - continue to hold Warfarin at this time- INR down to 1.5 on 10/05 - HGB downtrend 10/05 but stable today at 8.9, no black or bloody stools anymore - continue to hold warfarin - can restart coumadin if hgb stable on 10/07 per GI - No acute bleed noted on EGD- If downtrends again consider re-consulting GI for colonoscopy - Thrombocytopenia improving- likely related to vitamin B12 deficiency -Start B12 1000 mcg - 10/05 -Also with borderline folate deficiency-started folic acid 1mg daily If HGB remains stable overnight again and able to restart coumadin on Thursday, then can dc. If not, then re-consult GI for colonoscopy (2) Hypocalcemia: Plan: Mild on admission and likely worsened with PRBC infusion - If bleeding continues or requires more PRBC administer 1GM - Replaced 10/04/21 following PRBC - 1 GM calcium gluconate resolved (3) Pacemaker: Plan: [employer] [place] XT MRI [id number]- placed [id number] Atrial Lead CasureFix Novus MRI Septal SelectSecure Appropriate AV sense with appropriate fire and capture of ventricle Miode DDD with mode switch at 171 - Low rate 60 - upper track 130 AT/AF >171 VT >150 (4) S/P TAVR (transcatheter aortic valve replacement): Plan[place] [facility] [place] - Repeat ECHOs with improvement in aortic valve velocities - Remains on Warfarin with plan of discontinuing this in November s/p TAVR "unless another indication" and patient does have Afib-defer to Cardiology outpt (5) CKD (chronic kidney disease) stage 3, GFR 30-59 ml/min: 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 Typically on coumadin but may need antiplatelet as well (7) Anticoagulant long-term use: Plan: Secondary to Afib- s/p TAVR and DDD pacemaker - does not need for TAVR after November, but has a h/o PAF and needs Coumadin for that - Hold coumadin as above - INR down to 1.5 on 10/05 - HGB level stable today--> plan for 3 days post EGD restart Coumadin is GI re commendation (8) HF (heart failure), diastolic: Plan: Chronic HFpEF did receive IV lasix for volume overload with TACO s/p PRBC transfusion, now resolved follow volume status-euvolemic -continue home lasix 40mg po bid (9) DM II (diabetes mellitus, type II), controlled: Plan: Hold oral agents - continue SSI - Goal <180 - hypoglycemic protocol -A1C 6.9 -continue on Lantus 5 units hs for hyperglycemia (10) HTN (hypertension): Plan: BPs controlled continue amlodipine, metoprolol, lasix (11) Electrolyte abnormality: Plan: Hyponatremic and hypochloremic with edema to bilateral lower extremities- improved with diuresis to 134 - likely hypervolemic hyponatremic complicated by decrease solute intake with decrease oral food intake Hypomag- repleted and resolved Hypocalcemia-resolved with replacement (12) Hypoxia: Plan: Acute event following blood transfusion with CXR with pulmonary edema and in the setting of blood transfusion- TACO - Acute respiratory failure with hypoxia - he was diuresed since that time and supported with oxygen therapy which has since been weaned off which is more indicative of TACO -await transfusion reaction workup as per Pathology continue samy epo lasix bid (13) Confusion: Plan: Acute temporary confusion time frame is difficult to establish as well as length of symptoms as patient still has no recollection of event or why he came to the EMD - 2/2 acute anemia - improved on HD#1 morning with increase in hemoglobin counts- making anemia likely contributing factor - Continue to follow through hospital stay and following sedation if EGD pursued - carotid dopplers performed on admission negative - No acute events overnight and no further episodes Resolved (14) Elevated troponin: Plan: Likely demand elevation as asymptomatic and related to his underlying structural heart disease - trended HScTNI and leveled off - no acute intervention at this time (15) Vitamin B12 deficiency (dietary) anemia: Plan: low at 167, with anemia and thrombocytopenia replace with IM B12 x 3 days then po and follow as outpt Plan Dispo-continued stay, if hgb stable tomorrow, can dc to home, restart coumadin, follow closely as outpt Admission and Anticipated Discharge Date Admission Date: October 02, 2021 Anticipated date of discharge: 10/07/21 Subjective Feeling well, no bloody or black stools. Had a brown BM yesterday. Denies abd pain or indigestion. Had a hard time sleeping last night because of boredom. Denies CP, SOB Tele with NSR< rates 60-80s Review of Systems Review of Systems: All systems reviewed & are unremarkable except as noted in HPI & below Physical Exam Constitutional: WD/WN, vitals as above Eyes: + anicteric sclerae Neck: trachea midline, no thyromegaly Respiratory: normal respiratory effort, lungs clear to auscultation Cardiovascular: RRR, no murmur, no edema Chest (Breasts): Chest: normal inspection of chest Gastrointestinal (Abdomen): normal bowel sounds, soft, nontender, no hepatosplenomegaly Musculoskeletal: Extremities: extremities normal to inspection; no cyanosis and no clubbing Skin: no rashes, warm and dry Neurologic: moves all extremities and awake; no focal motor deficits Psychiatric: Orientation: alert, oriented x 3 and cooperative Lymphatic: no lymphedema Results & Data Results & Data ([facility]) Vital Signs (Past 12 Hours) Vital Signs Temp Pulse Pulse Resp BP Pulse Ox O2 Del Method 10/06/21 10:33 36.7 C 63 18 130/67 96 Room Air 10/06/21 08:52 74 10/06/21 07:30 36.7 C 72 20 163/72 H 96 Room Air 10/06/21 04:00 36.4 C L 83 18 160/69 H 94 Room Air Laboratory Results 10/06/21 08:36 10/06/21 08:36 PG Care Time/CCT Total # of Minutes Spent Total Time Spent with Patient: Total time spent is greater than 50% in coordination of care (as documented) at patient's floor/unit and/or counseling patient: Coding Level of Care Code 59149 Subseq Hosp Care Lvl 2 Diagnoses Anemia D64.9 Hypocalcemia E83.51 Pacemaker Z95.0 S/P TAVR (transcatheter aortic valve replacement) Z95.2 CKD (chronic kidney disease) stage 3, GFR 30-59 ml/min N18.30 CAD (coronary atherosclerotic disease) I25.810 Associated angina: unspecified whether angina present Coronary Disease-Associated Artery/Lesion type: bypass graft [place] vs. transplanted heart: [place] heart Anticoagulant long-term use Z79.01 HF (heart failure), diastolic I50.30 DM II (diabetes mellitus, type II), controlled E11.9 HTN (hypertension) I10 Electrolyte abnormality E87.8 Hypoxia R09.02 Confusion R41.0 Elevated troponin R77.8 Vitamin B12 deficiency (dietary) anemia D51.8 (1) CAD (coronary atherosclerotic disease) Associated angina: unspecified whether angina present Coronary Disease- Associated Artery/Lesion type: bypass graft [place] vs. transplanted heart: [place] heart Qualified Code(s): I25.810 - Atherosclerosis of coronary artery bypass graft(s) without angina pectoris
[2021-10-06] MEDS: SIMVASTATIN 20 MG TAB PO SCH (20:10)
[2021-10-06] MEDS: LANTUS PER UNIT CHARGE SQ SCH (21:11)
[2021-10-07 07:52] LABS: Basophils # (auto) 0.02 K/uL (0-0.2); Basophils % (auto) 0.4 %; Eosinophils # (auto) 0.03 K/uL (0-0.50); Eosinophils % (auto) 0.6 %; Hematocrit (blood only) 27.2 % (40.1-51.0); Hemoglobin 8.8 g/dl (14.0-18.0); Immature Granulocytes # (auto) 0.03 K/uL (0.00-0.02); Immature Granulocytes % (auto) 0.6 %; Lymphocytes # (auto) 0.41 K/uL (1.2-3.4); Lymphocytes % (auto) 7.8 %; Mean Corpuscular Hemoglobin 27.8 pg (25.0-34.0); Mean Corpuscular Hgb Conc 32.4 g/dL (32.0-36.0); Mean Corpuscular Volume 85.8 fL (80.0-100.0); Mean Platelet Volume 10.4 fL (9.4-12.4); Monocytes # (auto) 0.28 K/uL (0.24-0.82); Monocytes % (auto) 5.3 %; Neutrophils # (auto) 4.47 K/uL (1.4-6.5); Neutrophils % (auto) 85.3 %; Platelet Count 90 K/uL (130-400); RDW Coefficient of Variation 16.3 % (11.5-14.5); RDW Standard Deviation 50.1 fL (36.4-46.3); Red Blood Count 3.17 M/uL (4.63-6.08); White Blood Count 5.24 K/ul (4.8-10.8)
[2021-10-07 08:12] LABS: BUN Creatinine Ratio 24.5 (10-20); Calcium 8.3 mg/dl (8.5-10.1); Est GFR (African American) 52.8 ml/min; Est GFR (Non-African American) 45.6 ml/min; Magnesium 1.8 mg/dl (1.7-2.4); Potassium 3.5 mmol/L (3.5-5.1)
[2021-10-07 08:20] LABS: INR 1.2 (0.9-1.1); Prothrombin Time 12.5 Seconds (9.0-12.0)
[2021-10-07] MEDS: PANTOprazole 40 MG TAB PO SCH (08:28)
[2021-10-07] MEDS: CYANOCOBALAMIN 1000 MCG/ML VIAL IM SCH (08:28)
[2021-10-07] MEDS: FUROSEMIDE 40 MG TAB PO SCH (08:28)
[2021-10-07] MEDS: METOPROLOL SUCC 50MG EXT REL TAB PO SCH (08:29)
[2021-10-07] MEDS: amLODIPine BESYLATE 5 MG TAB PO SCH (08:29)
[2021-10-07] MEDS: FINASTERIDE 5 MG TAB PO SCH (08:29)
[2021-10-07] MEDS: TRIAMCINOLONE ACET 0.1% OINT 15 GM TUBE TOP SCH (08:29)
[2021-10-07] MEDS: FOLIC ACID 1 MG TAB PO SCH (08:29)
[2021-10-07] MEDS: INSULIN ASPART PER UNIT SC SCH ×2 (08:30→12:19)
[2021-10-07 10:59] VITALS: TEMP 97.3; O2SAT 99
--- NOTE | 2021-10-07 11:54 | Discharge Summary ---
Date of Service October 07, 2021 Admission HPI Per Admitting Provider 86 YOM with medical history of: Afib (on coumadin), CABG(2007), CAD, S/P TAVR, fall with right fracture 09/13 (follows with [facility] surgery declined by patient), pacemaker insertion, LVH with diastolic dysfunction (HFpEF), subdural hematoma with jose holes. Patient was brought to the EMD today via EMS secondary to having eppisode of consfusion this mornig while eating brittany joshi in the car. Reports from his son state that his mom told him the patient was just standing there looking at the wall and could not remember where he was or what he was doing. The patient has no recollection of this. He states that he has been feeling well and son reports that he had no difficulty talking or walking. The patient cognitive status is slower than what he has been. The patient son thinks this has declined over the past 2-3 months. He reports that after he broke his shoulder and in a sling that he couldn't use his right arm so he functionally slowed down with using a wheelchair to get around the house. In the EMD the patient had routine labs performed to include a HScTNI, BNP, and UA. His labs returned notable for decrease in HGB to 7.6, hyponatremia, hypomag, hypocalcemia. BNP was mildly elevated. Upon further questioning the patient endorsed 2-3 loose black bowel movements over the past 1-2 weeks, but unsure of time frame. He denies any johnathan blood. His INR is 2.7. 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 Overall he has no other focal deficits. Will diurese him with 20mg of Lasix secondary to his leg edema, follow his HGB with diuresing. If continue to drop or not improve, will administer PRBC for goal >8. Protonix IV BID first dose now and hold his warfarin. Will obtain carotid dopplers. COVID test on admission is: NEGATIVE Principal Diagnosis Acute blood loss anemia, acute encephalopathy, GI bleed Discharge Exam Constitutional WD/WN, vitals as above Eyes + anicteric sclerae Neck trachea midline, no thyromegaly Respiratory normal respiratory effort, lungs clear to auscultation Cardiovascular Rate/Rhythm: regular rate and regular rhythm Heart Sounds: + murmur (2/6 PRABHAKAR at RUSB) Extremities: + edema (2+ pitting edema Right foot/ankle distal leg,1+ on left leg) Chest (Breasts) Chest: normal inspection of chest Gastrointestinal (Abdomen) normal bowel sounds, soft, nontender, no hepatosplenomegaly Musculoskeletal Extremities: extremities normal to inspection; no cyanosis and no clubbing Skin no rashes, warm and dry Neurologic moves all extremities and awake; no focal motor deficits Psychiatric Orientation: alert, oriented x 3 and cooperative Discharge Data Allergies Allergy/AdvReac Type Severity Reaction Status Date / Time No Known Allergies Allergy Mild NONE Verified 08/28/21 08:38 Consultations 10/01/21 07:40 ED Decision to Admit Stat 10/01/21 18:01 Consult Gastroenterology Routine 10/02/21 11:42 Consult Cardiology Routine Procedures Performed Operation Date: 10/03/21 16:00 Actual Procedures p Esophagogastroduodenoscopy - Jadiel Rawls MD Ordered Studies 10/01/21 04:16 CT head/brain wo con Urgent 10/01/21 13:00 US carotid doppler BI Routine 10/04/21 07:54 CTA abdomen wo/w con [CT angio abdomen wo/w con] Routine Hospital Course (1) Anemia: Acute blood loss anemia in [facility] folate and B12 deficiency anemia Presented with melena and acute encephalopathy - HGB 7.6 with report of dark stools with decreased appetite and without epigastric pain--> hgb decreased to 6.9 the AM after admission - Likely associated with blood loss from likely UGIB- however EGD without source of bleeding-likely somewhere in small bowel, but does have a h/o colon CA as well - received Protonix 40mg po BID but dc on discharge as EGD negative - held Warfarin throughout course and INR 1.2 on day of discharge --was transfused total of 2 units PRBCs - HGB stable for 3 days now at 8.8, no black or bloody stools anymore - restart warfarin on discharge without loading dose, f/u CBC and INR in 3 days as outpt -f/u with outpatient GI at [facility] to discuss colonoscopy or capsule endoscopy - Thrombocytopenia improving- likely related to vitamin B12 deficiency -Started B12 1000 mcg - 10/05 -Also with borderline folate deficiency-started folic acid 1mg daily advised to return to hospital if has return of dark stools or if advised to do so by PCP after results of CBC in 3 days (2) Hypocalcemia: Mild on admission and likely worsened with PRBC infusion - Replaced 10/04/21 following PRBC - 1 GM calcium gluconate resolved (3) Pacemaker: [employer] [place] XT MRI [id number]- placed [id number] Atrial Lead CasureFix Novus MRI Septal SelectSecure Appropriate AV sense with appropriate fire and capture of ventricle Miode DDD with mode switch at 171 - Low rate 60 - upper track 130 AT/AF >171 VT >150 (4) S/P TAVR (transcatheter aortic valve replacement): performed at [facility] [place] - Repeat ECHOs with improvement in aortic valve velocities - Remains on Warfarin with plan of discontinuing this in November s/p TAVR "unless another indication" --> patient does have Afib-defer to Cardiology outpt if bleeds again, would obviously need to hold or consider alternative (5) CKD (chronic kidney disease) stage 3, GFR 30-59 ml/min: 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 Rodriguez in 06/2021 when coumadin was started (7) Anticoagulant long-term use: Secondary to Afib- s/p TAVR and DDD pacemaker - does not need for TAVR after November, but has a h/o PAF and needs Coumadin for that - Held coumadin as above and now restarting follows with Cardiology office for coumadin management - INR down to 1.2 on day of discharge restart as above and follow INR and CBC in 3 days (8) HF (heart failure), diastolic: Chronic HFpEF did receive IV lasix for volume overload with TACO s/p PRBC transfusion, now resolved follow volume status-euvolemic but always has chronic ankle leg edema -continue home lasix 40mg po bid (9) DM II (diabetes mellitus, type II), controlled: restart home meds on discharge -A1C 6.9 (10) HTN (hypertension): BPs controlled continue amlodipine, metoprolol, lasix (11) Electrolyte abnormality: Hyponatremic and hypochloremic with edema to bilateral lower extremities- improved with diuresis to 134 - likely hypervolemic hyponatremic complicated by decrease solute intake with decrease oral food intake Hypomag- repleted and resolved Hypocalcemia-resolved with replacement (12) Hypoxia: Acute event following blood transfusion with CXR with pulmonary edema and in the setting of blood transfusion- TACO - Acute respiratory failure with hypoxia - he was diuresed since that time and supported with oxygen therapy which has since been weaned off which is more indicative of TACO -transfusion reaction workup as per Pathology agreed with TACO continue home po lasix bid (13) Confusion: Acute encephalopathy 2/2 acute blood loss anemia, GI bleed - improved on HD#1 morning with increase in hemoglobin counts- making anemia likely contributing factor - Continue to follow through hospital stay and following sedation if EGD pursued - carotid dopplers performed on admission negative - No acute events overnight and no further episodes Resolved (14) Elevated troponin: Likely demand elevation as asymptomatic and related to his underlying structural heart disease - trended HScTNI and leveled off - no acute intervention at this time (15) Vitamin B12 deficiency (dietary) anemia: low at 167, with anemia and thrombocytopenia replace with IM B12 x 3 days then po and follow as outpt Plan Dispo- dc to home with home health, restart coumadin, follow closely as outpt Total Time Total Time Spent Total Time Spent (In Minutes): 35 min Discharge Plan Discharge Items Patient Disposition: Home - Home Health Services Reason For Visit: TEMPORARY CONFUSION AT HOME, LOW HGB, ELECTROLYTE Discharge Diagnosis: Acute encephalopathy, acute blood loss anemia, GI bleed Activity: As commented below Lifting: Gradually increase as tolerated Bathing: No limitations Exercise/Sports: Gradually increase as tolerated Non-emergency contact: Primary Care Provider and Insole Beveler Call non-emergency contact if: you have any medication questions and your symptoms worsen Follow-up/Referrals: Shikha Jarquin MD [Primary Care Provider] - 10/18/21 2:50 pm (Follow up within 1 week of discharge. ) Luis Moraes [Physician] - (Please follow up with GI to discuss performing a colonoscopy due to recent GI bleed and anemia) Diet: Heart Healthy and Low Sodium (2gm) Fluids: 1800ml (7 cups) Ambulatory Orders: Complete Blood Count with Diff (Timed) Timeframe: 3 Days Location: Determined by Patient Ordered By: Alicia Hendrickson Prothrombin Time INR (Timed) Timeframe: 3 Days Location: Determined by Patient Ordered By: Alicia Clancy Attending Provider Instructions: Please have your PT/INR (Coumadin level) and your complete blood count (CBC) checked on /Thursday of this week. You can restart your Coumadin at your usual doses today. Please keep an eye out for any recurrence of black tarry stools or blood in your stool. If this happens, please call your doctor or return to the hospital. You should follow up with your Insole Beveler to talk about having a colonoscopy done as an outpatient to see if there is a source of bleeding there. You were also restarted on Vitamin B12 shots and should continue taking a B12 pill when you leave the hospital due to severely low B12 levels. Your folate levels were also low and you should take a folic acid supplement to replete this. Both of these B vitamin deficiencies can also lead to anemia. Pending Studies at Discharge: No Stand-Alone Forms: [facility], Smoking Cessation Medications and DC Order Prescriptions: New folic acid 1 mg Tablet 1 mg PO QAM Qty: 30 0RF Continued amoxicillin 500 mg tablet 2,000 mg PO ONCE Qty: 20 3RF Rx Instructions: 4 Tablets by mouth 1 hour before a dental procedure. warfarin 5 mg tablet 5 mg PO DAILY Qty: 100 3RF Protocol: Dose Management Condition: Thursday Dose/Route: 2.5 mg Instruction: 0.5 x 5 mg tablets Condition: Thursday Dose/Route: 5 mg Instruction: 1 x 5 mg tablet Condition: Thursday Dose/Route: 5 mg Instruction: 1 x 5 mg tablet Condition: Thursday Dose/Route: 2.5 mg Instruction: 0.5 x 5 mg tablets Condition: Dose/Route: 5 mg Instruction: 1 x 5 mg tablet Condition: Thursday Dose/Route: 2.5 mg Instruction: 0.5 x 5 mg tablets Condition: Thursday Dose/Route: 5 mg Instruction: 1 x 5 mg tablet Protocol Text: Adjustment Start Date: 09/26/21 INR Value: 2.3 INR Date: 09/26/21 Recheck Date: 10/10/21 amlodipine 2.5 mg tablet 5 mg PO DAILY triamcinolone acetonide 0.1 % ointment 1 applic TOPICAL BID metoprolol succinate 50 mg tablet extended release 24 hr 50 mg PO DAILY glipizide 10 mg tablet 20 mg PO BID tamsulosin 0.4 mg capsule 0.4 mg PO DAILY simvastatin 20 mg tablet 20 mg PO HS finasteride 5 mg tablet 5 mg PO DAILY furosemide 40 mg tablet 40 mg PO BID Qty: 60 0RF cyanocobalamin (vitamin B-12) 5,000 mcg capsule 5,000 mcg PO DAILY Qty: 30 0RF Discharge Orders: Discharge Order (Routine); Ordered 10/07/21 Ordered By: Alicia Stanley/Other Patient Handouts: Managing Type 2 Diabetes Admission Data Admit Date/Time: 10/02/21 14:40 Attending Provider: Alicia Hendrickson Admit Provider: Alicia Hendrickson Primary Care Provider: Shikha Jarquin Other Providers: Alicia Hendrickson ; Darrian Matos ; Scooter Crowley Coding Level of Care Code D/C DAY MANAGEMENT >30 MINS Diagnoses Anemia D64.9 Hypocalcemia E83.51 Pacemaker Z95.0 S/P TAVR (transcatheter aortic valve replacement) Z95.2 CKD (chronic kidney disease) stage 3, GFR 30-59 ml/min N18.30 CAD (coronary atherosclerotic disease) I25.810 Associated angina: unspecified whether angina present Coronary Disease-Associated Artery/Lesion type: bypass graft [place] vs. transplanted heart: [place] heart Anticoagulant long-term use Z79.01 HF (heart failure), diastolic I50.30 DM II (diabetes mellitus, type II), controlled E11.9 HTN (hypertension) I10 Electrolyte abnormality E87.8 Hypoxia R09.02 Confusion R41.0 Elevated troponin R77.8 Vitamin B12 deficiency (dietary) anemia D51.8
[2021-10-07 12:58] VITALS: BP 148/73; PULSE 81
--- NOTE | 2021-10-29 14:21 | Coding Query ---
A supporting diagnosis is required for the test/procedure performed on this patient in order for us to be reimbursed by the patient's insurance. Please provide a supporting diagnosis for the following test/procedure listed below next to the test name along with your signature. *If there is no additional diagnosis for this patient that would support the following test/procedure please document that below next to the test/procedure. Test(s)/Procedure(s) that require a supporting diagnosis: * [id number] CAROTID DOPPLER DIAGNOSIS: icd10: g45.9 Transient Cerebral ischemic Attack, unspecified - Suspected based on presenting symptoms of confusion and generalized weakness - Carotid ultrasound was obtained evaluate for potential source of cerebrovascular emboli/CVD risk stratification DATE OF SERVICE: 10/01/21 Provider Signature: ___Adrian Doss__ Date: _10/29/21 Thank you [facility] Information Management Once completed, please kindly fax back to [phone] For questions please call [phone] [facility]
== END 2021-10-07 13:20 | disposition home health service (06) ==
LOC: ED 03:51 → EDINP 03:51 → 2N 15:00
DX: N18.30 Chronic kidney disease, stage 3 unspecified; R09.02 Hypoxemia; B37.0 Candidal stomatitis; R77.8 Other specified abnormalities of plasma proteins; E53.8 Deficiency of other specified B group vitamins; R53.1 Weakness; Z66 Do not resuscitate; Z95.1 Presence of aortocoronary bypass graft; Z95.0 Presence of cardiac pacemaker; D69.6 Thrombocytopenia, unspecified; Z87.891 Personal history of nicotine dependence; Z79.899 Other long term (current) drug therapy; E87.8 Other disorders of electrolyte and fluid balance, not elsewhere classified; G93.40 Encephalopathy, unspecified; K92.2 Gastrointestinal hemorrhage, unspecified; I50.32 Chronic diastolic (congestive) heart failure; R41.0 Disorientation, unspecified; E83.51 Hypocalcemia; I25.810 Atherosclerosis of coronary artery bypass graft(s) without angina pectoris; E87.1 Hypo-osmolality and hyponatremia; D62 Acute posthemorrhagic anemia; E11.22 Type 2 diabetes mellitus with diabetic chronic kidney disease; Z79.01 Long term (current) use of anticoagulants; I48.91 Unspecified atrial fibrillation; Z95.2 Presence of prosthetic heart valve; E83.42 Hypomagnesemia; I13.0 Hypertensive heart and chronic kidney disease with heart failure and stage 1 through stage 4 chronic kidney disease, or unspecified chronic kidney disease

== ENCOUNTER 2021-10-25 01:02 | Observation (INO) ==
[2021-10-25 02:00] LABS: Hematocrit (blood only) 22.4 % (40.1-51.0); Hemoglobin 7.2 g/dl (14.0-18.0); Mean Corpuscular Hemoglobin 27.3 pg (25.0-34.0); Mean Corpuscular Hgb Conc 32.1 g/dL (32.0-36.0); Mean Corpuscular Volume 84.8 fL (80.0-100.0); Mean Platelet Volume 9.5 fL (9.4-12.4); Platelet Count 93 K/uL (130-400); RDW Coefficient of Variation 16.8 % (11.5-14.5); Red Blood Count 2.64 M/uL (4.63-6.08); White Blood Count 5.75 K/ul (4.8-10.8)
[2021-10-25] MEDS ORDERED: SODIUM CHLORIDE 0.9% 250 ML IV PRN (02:05)
[2021-10-25] MEDS: SODIUM CHLORIDE 0.9% 1000ML 1,000 ML IV SCH ×2 (02:12→13:33)
[2021-10-25 02:23] LABS: INR 2.4 (0.9-1.1); Partial Thromboplastin Ratio 1.4; Partial Thromboplastin Time 39.3 Seconds (21.0-31.0); Prothrombin Time 24.1 Seconds (9.0-12.0)
[2021-10-25 02:30] LABS: Troponin I High Sensitivity 35.3 pg/ml (0-20)
[2021-10-25 02:35] LABS: Albumin Globulin Ratio 0.9 (0.9-2); Albumin Level 3.1 gm/dl (3.4-5.0); BUN Creatinine Ratio 16.5 (10-20); Bilirubin,Total 1.3 mg/dl (0.2-1.0); Calcium 8.2 mg/dl (8.5-10.1); Creatinine Clr Calc Pharmacy 38.4 ml/min; Est GFR (African American) 52.8 ml/min; Est GFR (Non-African American) 45.6 ml/min; Globulin 3.6 gm/dl (2.5-4.0); Magnesium 1.7 mg/dl (1.7-2.4); Potassium 3.3 mmol/L (3.5-5.1); Total Protein 6.7 gm/dl (6.0-8.3)
[2021-10-25 02:48] LABS: Basophils # (auto) 0.02 K/uL (0-0.2); Basophils % (auto) 0.3 %; Eosinophils # (auto) 0.01 K/uL (0-0.50); Eosinophils % (auto) 0.2 %; Immature Granulocytes # (auto) 0.03 K/uL (0.00-0.02); Immature Granulocytes % (auto) 0.5 %; Lymphocytes # (auto) 0.24 K/uL (1.2-3.4); Lymphocytes % (auto) 4.2 %; Monocytes # (auto) 0.25 K/uL (0.24-0.82); Monocytes % (auto) 4.3 %; Neutrophils % (auto) 90.5 %; RBC Morphology Unremarkable
[2021-10-25] MEDS ORDERED: DEXTROSE 50% 50 ML SYRINGE IV STA ×2 (03:36→06:02)
[2021-10-25] MEDS ORDERED: DEXTROSE 50% 50 ML SYRINGE IV ONE (03:37)
[2021-10-25] MEDS ORDERED: OPTIRAY 300 500mL IV ONE (03:39)
[2021-10-25 04:42] LABS: Appearance Urine Clear (Clear); Bacteria Urine Automated Negative (Negative); Bilirubin Urine Negative (Negative); Blood Urine 3+ (Negative); Cast Urine Automated 0 /lpf (0-5); Color Urine Yellow; Epithelial Cell Urine Auto 0-5 /lpf (0-5); Glucose Urine UA Negative (Negative); Ketones Urine Negative (Negative); Leukocyte Esterase Urine Negative (Negative); Nitrite Urine Negative (Negative); Protein Urine 1+ (Negative); RBC Urine Automated >30 /hpf (0-4); Specific Gravity Urine 1.007 (1.000-1.030); Urobilinogen Urine Negative (Negative)
--- NOTE | 2021-10-25 05:12 | History & Physical Report ---
Date of Service October 25, 2021 Assessment & Plan (1) Generalized weakness: Plan: Multifactorial: Hypoglycemia, anemia, acute on chronic CHF (2) Symptomatic anemia: Plan: Symptomatic anemia/thrombocytopenia Hemoglobin 7.2 on admission To receive 2 units PRBCs from the ED Repeat H&H at 11 AM Follow CBC with differential serially Platelets stable at 93 Question if element of myelodysplastic syndrome Initial Hemoccult reported negative in the ED, will Hemoccult all stools Hold anticoagulation for now (3) Acute on chronic heart failure with preserved ejection fraction (HFpEF): Plan: Acute on chronic HFpEF/elevated troponin/CAD/status post TAVR/paroxysmal atrial fibrillation/long-term anticoagulant use/pacer- The patient will be admitted to telemetry for serial cardiac enzymes, serial EKG's, cardiac rhythm monitoring and a 2-D echocardiogram with Dopplers. Troponin mildly elevated at 35.3, with repeat pending Likely element of high-output CHF May Lasix 40 mg IV after second unit PRBCs, and also with need to be on D5 for hypoglycemia, Hold amlodipine Continue metoprolol succinate, but may cause hypoglycemia unawareness if his glipizide isn't stopped upon discharge Hold warfarin until hemoglobin stabilized (4) Elevated troponin: Plan: See above (5) Hypoglycemia associated with diabetes: (6) Coronary artery disease: (7) History of heart bypass surgery: (8) Paroxysmal atrial fibrillation: (9) DM II (diabetes mellitus, type II), controlled: Plan: Hold and discontinue glipizide 20 mg p.o. twice daily Will likely have issues with hypoglycemia for next [address] Accu-Cheks primarily for follow-up sugars BSG dropped to 57 while in the ED, will give 1 amp of D50, does start D5 half- normal saline with KCl 20 mEq at 60 mils per hour (10) S/P TAVR (transcatheter aortic valve replacement): (11) Anticoagulant long-term use: Plan: Holding warfarin as noted for now (12) Pacemaker: (13) CKD (chronic kidney disease) stage 3, GFR 30-59 ml/min: Plan: Creatinine 1.39 upon admission, with range 1.25-1.60 Follow serially (14) Aortic stenosis: (15) Hypercholesterolemia: Plan: Continue simvastatin (16) Vitamin B12 deficiency (dietary) anemia: Plan: Continue supplement (17) BPH w urinary obs/LUTS: Plan: Continue tamsulosin, but changed to evening, as taking in the morning may be contributing to part of his symptoms History of Present Illness Chief Complaint: The patient is brought to the emergency department by family due to persistent and worsening fatigue, inability to participate with physical therapy at home, and lethargy Primary Care Provider: Shikha Jarquin MD [id number] patient is an 86-year-old male with a past medical history including deficiency, status post CABG, CAD, chronic HFpEF, paroxysmal atrial fibrillation, diabetes mellitus, status post TAVR, long-term anticoagulant use, status post pacemaker, CKD, aortic stenosis, BPH with LUTS, hypertension, hypercholesterolemia, and anemia. The patient is brought to the emergency department after been seen 3 days previously with worsening symptoms. Significant abnormal laboratories: Hemoglobin 7.2, hematocrit 22.4 platelets 93, sodium 130, potassium 3.3, glucose 69, creatinine 1.39, INR 2.4, total bilirubin 1.3, troponin 35.3, albumin 3.1. COVID-[address] head without contrast negative for acute event. 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 Small vessel disease. Right parietal jose hole. CTA head and neck negative for acute event Allergies Allergy/AdvReac Type Severity Reaction Status Date / Time No Known Allergies Allergy Mild NONE Verified 10/25/21 01:23 Home Medications Medication Instructions Recorded Confirmed Type finasteride 5 mg tablet 5 mg PO QAM 01/17/21 10/25/21 History glipizide 10 mg tablet 20 mg PO BID 01/17/21 10/25/21 History metoprolol succinate 50 mg 50 mg PO QAM 01/17/21 10/25/21 History tablet,extended release 24 hr simvastatin 20 mg tablet 20 mg PO HS 01/17/21 10/25/21 History tamsulosin 0.4 mg capsule 0.4 mg PO QAM 01/17/21 10/25/21 History furosemide 40 mg tablet 40 mg PO BID #60 tabs 03/22/21 10/25/21 Rx triamcinolone acetonide 0.1 % 1 applic topical BID Right Leg 10/01/21 10/25/21 History topical ointment Wound folic acid 1 mg tablet 1 mg PO QAM #30 tabs 10/07/21 10/25/21 Rx amlodipine 5 mg tablet 5 mg PO QAM 10/25/21 10/25/21 History amoxicillin 500 mg tablet 2,000 mg PO DIRECTED PRN 1 HOUR 10/25/21 10/25/21 History PRIOR TO DENTAL PROCEDURES. cyanocobalamin (vitamin B-12) 5,000 mcg PO QAM 10/25/21 10/25/21 History 5,000 mcg capsule warfarin 5 mg tablet See Rx Instructions .Route .COMPLEX 10/25/21 10/25/21 History Past Med/Surg History Medical History (Updated 10/25/21 @ 05:58 by Jaison Aguirre MD) Anticoagulant long-term use BPH w urinary obs/LUTS Chronic heart failure with preserved ejection fraction Colon cancer Coronary artery disease Dark stools Diabetes Hypercholesterolemia Hypertension Lower extremity edema Paroxysmal atrial fibrillation Subdural hematoma Vitamin B12 deficiency (dietary) anemia Surgical History (Updated 10/02/21 @ 17:40 by Scooter Crowley MD) History of heart bypass surgery History of partial colectomy S/P TAVR (transcatheter aortic valve replacement) Status post evacuation of subdural hematoma Family History (Updated 10/01/21 @ 19:42 by Alicia Hendrickson MD) Other Family history non-contributory Social History Smoking Status: Former smoker Tobacco Type: Cigarettes Second Hand Exposure: No; Hx Alcohol Use: No Hx Substance Use: No Preferred Language: Persian Communication Ability: Effective 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 Beliefs That Will Affect Care: None marital status: Current Living Situation: Family Current Living Situation Comment: and Te current occupational status: employed and retired How many Children do You have: 3 Feels Safe at Home: Yes Assistive Devices: Glasses Review of Systems Review of Systems: The patient denies chest pain, palpitations, cough, lower extremity swelling, sore throat, fevers, chills, sweats, nausea, vomiting, diarrhea , constipation, abdominal pain, pelvic pain, blood in urine or stool, dysuria, urinary frequency or urgency, lightheadedness, dizziness, headache, memory loss, loss of consciousness, rash, abnormal bruising or bleeding, focal weakness, numbness or tingling in arms or legs, generalized arthralgias or myalgias, back or neck pain, or night sweats. The review of systems is otherwise negative other than for that already noted above, and at least 10 systems have been reviewed. Physical Exam Physical Exam: The patient is awake, alert and oriented 3, normocephalic and atraumatic, lying in bed and in no acute distress. HEENT--PERRL, EOMI, mucous membranes and oropharynx normal Neck--supple. No JVD. No bruits. Thyroid normal, trachea midline, no adenopathy. Heart--normal S1 and S2. No murmurs, rubs or gallops. Lungs--clear bilaterally, no respiratory distress, no accessory muscle use. Abdomen--normal bowel sounds and soft. Nontender. Nondistended, no hernias or masses, no organomegaly. Extremities--no cyanosis or clubbing. 2+ bilateral pretibial pitting edema. Dermatologic--normal skin turgor, normal color, no abnormal lymph nodes, no rash. Neurologic--cranial nerves II through XII grossly intact. Rheumatologic--normal range of motion. Psychiatric--normal affect. Results & Data Results & Data ([facility]) Vital Signs (Past 12 Hours) Vital Signs Temp Pulse Resp BP BP Pulse Ox O2 Del Method 10/25/21 04:45 36.6 C 82 16 132/68 96 10/25/21 02:55 36.6 C 16 150/89 H 93 Room Air 10/25/21 04:30 36.6 C 83 16 150/89 H 93 10/25/21 00:55 36.6 C 90 18 145/71 H 100 Room Air 10/25/21 00:55 Room Air O2 Flow Rate 10/25/21 04:45 0 10/25/21 02:55 0 10/25/21 04:30 0 10/25/21 00:55 10/25/21 00:55 Laboratory Results Laboratory Results WBC 5.75 K/ul (4.8-10.8) 10/25/21 01:45 RBC 2.64 M/uL (4.63-6.08) L 10/25/21 01:45 Hgb 7.2 g/dl (14.0-18.0) L 10/25/21 01:45 Hct 22.4 % (40.1-51.0) L 10/25/21 01:45 MCV 84.8 fL (80.0-100.0) 10/25/21 01:45 MCH 27.3 pg (25.0-34.0) 10/25/21 01:45 MCHC 32.1 g/dL (32.0-36.0) 10/25/21 01:45 RDW Std Deviation 52.0 fL (36.4-46.3) H 10/25/21 01:45 RDW Coeff of Jose A 16.8 % (11.5-14.5) H 10/25/21 01:45 Plt Count 93 K/uL (130-400) L 10/25/21 01:45 MPV 9.5 fL (9.4-12.4) 10/25/21 01:45 Immature Gran % (Auto) 0.5 % 10/25/21 01:45 Neut % (Auto) 90.5 % 10/25/21 01:45 Lymph % (Auto) 4.2 % 10/25/21 01:45 [place] % (Auto) 4.3 % 10/25/21 01:45 Eos % (Auto) 0.2 % 10/25/21 01:45 Baso % (Auto) 0.3 % 10/25/21 01:45 Neut # (Auto) 5.20 K/uL (1.4-6.5) 10/25/21 01:45 Lymph # (Auto) 0.24 K/uL (1.2-3.4) L 10/25/21 01:45 Irion # (Auto) 0.25 K/uL (0.24-0.82) 10/25/21 01:45 Eos # (Auto) 0.01 K/uL (0-0.50) 10/25/21 01:45 Baso # (Auto) 0.02 K/uL (0-0.2) 10/25/21 01:45 Immature Gran # (Auto) 0.03 K/uL (0.00-0.02) H 10/25/21 01:45 RBC Morphology Unremarkable 10/25/21 01:45 PT 24.1 Seconds (9.0-12.0) H 10/25/21 01:45 INR 2.4 (0.9-1.1) H 10/25/21 01:45 APTT 39.3 Seconds (21.0-31.0) H 10/25/21 01:45 PTT Ratio 1.4 10/25/21 01:45 Sodium 130 mmol/L (136-145) L 10/25/21 01:45 Potassium 3.3 mmol/L (3.5-5.1) L 10/25/21 01:45 Chloride 96 mmol/L (98-107) L 10/25/21 01:45 Carbon Dioxide 26 mmol/L (21-32) 10/25/21 01:45 Anion Gap 8 (3-11) 10/25/21 01:45 BUN 23 mg/dl (6-23) 10/25/21 01:45 Creatinine 1.39 mg/dl (0.6-1.4) 10/25/21 01:45 Est Cr Clr Drug Dosing 38.4 ml/min 10/25/21 01:45 Est GFR ( Amer) 52.8 ml/min 10/25/21 01:45 Est GFR (Non-Af Amer) 45.6 ml/min 10/25/21 01:45 BUN/Creatinine Ratio 16.5 (10-20) 10/25/21 01:45 Glucose 69 mg/dl (70-99(Fasting)) L 10/25/21 01:45 POC Glucose 57 mg/dl (70-99) L* 10/25/21 03:34 Calcium 8.2 mg/dl (8.5-10.1) L 10/25/21 01:45 Magnesium 1.7 mg/dl (1.7-2.4) 10/25/21 01:45 Total Bilirubin 1.3 mg/dl (0.2-1.0) H 10/25/21 01:45 AST 13 U/L (13-39) 10/25/21 01:45 ALT 10 U/L (7-52) 10/25/21 01:45 Alkaline Phosphatase 84 U/L (34-104) 10/25/21 01:45 Troponin I High Sens 35.3 pg/ml (0-20) H 10/25/21 01:45 Total Protein 6.7 gm/dl (6.0-8.3) 10/25/21 01:45 Albumin 3.1 gm/dl (3.4-5.0) L 10/25/21 01:45 Globulin 3.6 gm/dl (2.5-4.0) 10/25/21 01:45 Albumin/Globulin Ratio 0.9 (0.9-2) 10/25/21 01:45 Urine Color Yellow 10/25/21 02:03 Urine Appearance Clear (Clear) 10/25/21 02:03 Urine pH 6.0 (4.5-7.5) 10/25/21 02:03 Ur Specific [place] 1.007 (1.000-1.030) 10/25/21 02:03 Urine Protein 1+ (Negative) H 10/25/21 02:03 Urine Glucose (UA) Negative (Negative) 10/25/21 02:03 Urine Ketones Negative (Negative) 10/25/21 02:03 Urine Blood 3+ (Negative) H 10/25/21 02:03 Urine Nitrite Negative (Negative) 10/25/21 02:03 Urine Bilirubin Negative (Negative) 10/25/21 02:03 Urine Urobilinogen Negative (Negative) 10/25/21 02:03 Ur Leukocyte Esterase Negative (Negative) 10/25/21 02:03 Urine WBC (Auto) 1-5 /hpf (0-5) 10/25/21 02:03 Urine RBC (Auto) >30 /hpf (0-4) H 10/25/21 02:03 U Hyaline Cast (Auto) 0 /lpf (0-5) 10/25/21 02:03 U Epithel Cells (Auto) 0-5 /lpf (0-5) 10/25/21 02:03 Urine Bacteria (Auto) Negative (Negative) 10/25/21 02:03 SARS-CoV-2, RNA, NAAT NEGATIVE (NEGATIVE) 10/25/21 04:26 Blood Type B Positive 10/25/21 02:12 Antibody Screen NEGATIVE 10/25/21 02:12 Crossmatch See Detail 10/25/21 02:12 Code Status & VTE Plan Code Status DNR/DNI VTE Prophylaxis Plan VTE Prophylaxis will be ordered: Yes PG Care Time/CCT Total # of Minutes Spent Total Time Spent with Patient: Total time spent is greater than 50% in coordination of care (as documented) at patient's floor/unit and/or counseling patient: Coding Level of Care Code 79341 Initial Inpt Care Lvl 3 Diagnoses Generalized weakness R53.1 Symptomatic anemia D64.9 Acute on chronic heart failure with preserved ejection fraction (HFpEF) I50.33 Elevated troponin R77.8 Hypoglycemia associated with diabetes E11.649 Coronary artery disease I25.10 History of heart bypass surgery Z95.1 Paroxysmal atrial fibrillation I48.0 DM II (diabetes mellitus, type II), controlled E11.9 S/P TAVR (transcatheter aortic valve replacement) Z95.2 Anticoagulant long-term use Z79.01 Pacemaker Z95.0 CKD (chronic kidney disease) stage 3, GFR 30-59 ml/min N18.30 Aortic stenosis I35.0 Cardiac valve disease etiology: etiology unspecified Hypercholesterolemia E78.00 Vitamin B12 deficiency (dietary) anemia D51.8 BPH w urinary obs/LUTS N40.1; N13.8 (1) Aortic stenosis Cardiac valve disease etiology: etiology unspecified Qualified Code(s): I35.0 - Nonrheumatic aortic (valve) stenosis
[2021-10-25] MEDS: D5W AND 1/2NSS + 20MEQ KCL 20 MEQ/1,000 ML BAG IV SCH (06:42)
--- NOTE | 2021-10-25 07:28 | CT Scan Report ---
CT SCAN OF THE BRAIN WITHOUT IV CONTRAST CLINICAL HISTORY: Change in mental status. Slurred speech. Stroke like symptoms. COMPARISON STUDY: CT of the brain dated 10/21/2021. TECHNIQUE: Unenhanced axial CT scan of the brain is performed from the vertex to the skull base. A do se lowering technique was utilized adhering to the principles of ALARA. The examination is degraded b y motion artifact. The patient was scanned twice in an effort to improve image quality. CT DOSE: 1879.53 mGy.cm FINDINGS: Brain parenchyma: There is age-related involutional change noting mild subcortical and periventricula r microangiopathic disease. There is no hemorrhage, mass effect, or evidence of acute territorial isc hemia by CT criteria. A chronic lacunar infarct is noted in the right basal ganglia. Robertson-white matte r differentiation is preserved. No extra-axial fluid collection is seen. Ventricles, sulci, cisterns: Prominent secondary to involutional change. Intracranial vasculature: There is atherosclerotic calcification of the cavernous carotid and vertebr al arteries. Calvarium: There is a right parietal jose hole. No destructive calvarial lesion is seen. Sinuses and mastoids: The paranasal sinuses are clear. The mastoid air cells are well pneumatized. Orbits: The bony orbits are grossly intact. There are bilateral ocular lens implants. IMPRESSION: There is no hemorrhage, mass effect, or evidence of acute territorial ischemia by CT maia myers. ACT 112: Negative or not required by law. Electronically signed by: Shon Zhao M.D. 10/25/2021 7:26 AM
--- NOTE | 2021-10-25 07:28 | CT Scan Report ---
CTA ANGIOGRAPHY OF THE HEAD CLINICAL HISTORY: Stroke Like Symptoms. Altered mental status. Slurred speech. COMPARISON STUDY: CT of the head October 21, 2021. TECHNIQUE: Helical axial images of the head were obtained following uneventful intravenous administr ation of 118 cc of Optiray. Sagittal and coronal reconstructions were viewed as well as maximal inten sity projections on an independent 3-D workstation. Automated exposure control was utilized for the study. A dose lowering technique was utilized adhering to the principles of ALARA. FINDINGS: A defect within the right parietal calvarium is unchanged since CT of November 23, 2017. Ther e is an indeterminate 9 mm lucent lesion within the left lateral mass of C1. There is extensive calci fied plaque within bilateral cavernous carotids without significant stenosis. The bilateral M1, M2, A 1 and A2 segments are patent. No intracranial aneurysm is identified. No central vessel occlusion is present. Paravertebral artery is dominant. Posterior circulation is intact. CT of the head will be re ported separately. Ventricular system is stable. Basal cisterns are patent. There are no intra-axial collections. IMPRESSION: 1. No central vessel occlusion. No intracranial aneurysm. 2. Extensive calcified plaque within bilateral cavernous carotids without significant stenosis. ACT 112: Negative or not required by law. Electronically signed by: Dominick Helms M.D. 10/25/2021 7:27 AM
--- NOTE | 2021-10-25 07:32 | CT Scan Report ---
CT ANGIOGRAM OF THE NECK CLINICAL HISTORY: Slurred speech. Change in mental status. Stroke like symptoms. COMPARISON STUDY: No priors. TECHNIQUE: Following the IV administration of 118 of Optiray 300, CT angiogram of the neck was perfor med from the aortic arch to the skull base. Images are reviewed in the axial, sagittal, and coronal p lanes. 3-D MIPS images are created and assessed. IV contrast was administered without complication. A ll measurements were calculated based on NASCET criteria. A dose lowering technique was utilized adh ering to the principles of ALARA. FINDINGS: Thoracic aorta: There is atherosclerotic calcification of the thoracic aorta. Visualized portions of the thoracic aorta are normal in caliber. The aortic arch demonstrates 4-vessel variant anatomy. The left vertebral artery arises directly from the thoracic aorta. Right carotid arterial system: The right common carotid artery is widely patent, as are the right int ernal and external carotid arteries. Calcified plaque is noted in the carotid bulb. Left carotid arterial system: The left common carotid artery is widely patent, as are the left editing intern al and external carotid arteries. Calcified plaque is noted in the carotid bulb. Vertebral arteries: The vertebral arteries are widely patent bilaterally noting right-sided dominance . Subclavian arteries: Widely patent bilaterally. Intracranial vasculature: The visualized intracranial vessels of the skull base appear patent. Jugular veins: Widely patent bilaterally. Brain parenchyma: The visualized brain parenchyma the skull base is within normal limits age related involutional change. Upper chest: A cardiac pacemaker is noted in the left upper chest. Partially visualized upper lobe linda ng parenchyma appears clear. Soft tissues: The visualized pharyngeal soft tissues are normal in appearance noting angiographic pha se technique. The oropharyngeal airway appears widely patent. The thyroid gland is heterogeneous. The salivary glands are normal in appearance. No cervical lymphadenopathy is seen. Skeletal structures: The skeletal structures are osteopenic. The visualized calvarium at the skull ba se appears intact. The imaged cervical spine is maintained noting multilevel spondylosis. No lytic or blastic lesion is seen. Sinuses and mastoids: Trace mucosal thickening is seen in the right maxillary antrum. The remaining v isualized paranasal sinuses are clear. There is trace right mastoid effusion. The left mastoid air ce lls are well pneumatized. IMPRESSION: Unremarkable CT angiogram of the neck. ACT 112: Negative or not required by law. Electronically signed by: Shon Zhao M.D. 10/25/2021 7:30 AM
[2021-10-25] MEDS ORDERED: CARBOHYDRATES FOR HYPOGLYCEMIA PO PRN (07:45)
[2021-10-25] MEDS ORDERED: DEXTROSE 50% 50 ML SYRINGE IV PRN (07:45)
[2021-10-25] MEDS ORDERED: GLUCOSE 10 TAB/TUBE PO PRN (07:45)
[2021-10-25] MEDS ORDERED: ONDANSETRON INJ 2 MG/ML 2 ML VIAL IV PRN (07:45)
[2021-10-25] MEDS ORDERED: ACETAMINOPHEN 325 MG TAB PO PRN (07:45)
[2021-10-25] MEDS ORDERED: GLUCOSE 40% GEL 15 GM TUBE PO PRN (07:45)
[2021-10-25] MEDS ORDERED: GLUCAGON FOR INJ 1 MG VIAL SQ PRN (07:45)
--- NOTE | 2021-10-25 07:59 | Emergency Department Note ---
Impression & Plan Diabetes, AMS (altered mental status), Chronic anticoagulation, Atrial fibrillation ED Provider Note CHIEF COMPLAINT: Acute alteration of mental status HISTORY OF PRESENT ILLNESS: This 86-year-old male patient presents to the emergency department after an episode of altered awareness. Patient's son states he stood up off of his couch and stood blank. He did not seem to respond appropriately. His asked him if he needed to use the bathroom but he did not really respond. The called the son who brought him to the emergency department by ambulance. Glucose at the time was noted to be relatively low in the 50s. The patient was given orange juice and seem to come back around, responding appropriately. The patient has recently had a change in diet, the son is trying to cut back on the amount of sugar in his parents eating plan. He is concerned that perhaps if cut too far back on calories and sugar. He notes the patient is on glipizide but is no longer checking his blood sugars because he has gotten "lazy and tired" in his old age. He also notes that his father no longer checks his weight daily. Of note the patient also was evaluated in the emergency department 10/21. REVIEW OF SYSTEMS: A review of systems was performed with positives and pertinent negatives listed in the history of present illness. 10 systems were reviewed and are otherwise negative. ALLERGIES: see below MEDICATIONS: see below PMH: see below SOCIAL HISTORY: see below DDx:Infection, dehydration, metabolic abnormality, hypo/hyperglycemia, electrolyte disturbance, anemia, hypoxia, cardiac sources, intracerebral event, toxicologic, neurologic, as well as other pathologies. PHYSICAL EXAM: Vital signs reviewed. General: Elderly, somewhat ill-appearing 86-year-old male, in no significant distress. HEENT: No scleral icterus, PERRLA, neck supple. Atraumatic. Dry mucous memb ranes Cardiovascular: Regular rate and rhythm, no extra sounds. Pulmonary: Clear to auscultation bilaterally, normal work of breathing. Abdomen: Soft, nontender, nondistended, positive bowel sounds. Musculoskeletal: Atraumatic, no peripheral edema. Neurologic: Patient somnolent but awake enough to answer questions and oriented x 3, speech is clear. Hard of hearing. Follows commands appropriately but generally weak. Cranial nerves II through XII are grossly intact. There is no focal neurologic deficit. Negative pronator drift, intact [id number]. Skin: Warm, dry, no rash EMERGENCY DEPARTMENT COURSE/MDM: This patient was evaluated and appeared to be in no significant distress. IV access was obtained and laboratory work was drawn. Patient was placed on parts person noted to be in an atrially sensed, ventricularly paced rhythm. Patient's laboratory work reveals a modest hypo glycemia. It appears patient is on glipizide and has not been eating as much as usual. CT imaging of his head was performed with angiograms of the head and neck which are negative for acute vascular occlusion or sign of stroke. Whether this is behavioral or related to his family's efforts is unclear at this time. Patient was given one half amp of D50 as the oral intake of orange juice was a small but temporary bump in the patient's blood sugar. The patient did have an episode of unresponsiveness that was consistent with hypoglycemia in the emergency department as well. Patient's case was discussed with the hospitalist, Dr. Higginbotham who will evaluate the patient for admission and fur ther management. MONITORING: An order for cardiac monitoring was placed and the patient is noted to be in a paced rhythm at 87 beats per minute. RADIOLOGY: See below EKG: Atrially sensed and ventricular paced with prolonged AV conduction at 87 bpm. QTc is 515. No PVC, no PAC. Normal ST segments. When compared to previous dated October 21, 2021, ventricular rate has increased by 4 bpm. DISPOSITION: Admission Past Med/Surg History Medical History Admitted to intensive care unit Anemia Anemia Anemia Anticoagulant long-term use Aortic stenosis BPH w urinary obs/LUTS Breath shortness CAD (coronary atherosclerotic disease) Chronic heart failure with preserved ejection fraction Colon cancer Coronary artery disease Dark stools Diabetes Electrolyte abnormality HTN (hypertension) Hypercholesterolemia Hypertension Hypoxia Lower extremity edema Paroxysmal atrial fibrillation Subdural hematoma Vitamin B12 deficiency (dietary) anemia Weakness Surgical History H/O heart bypass surgery History of heart bypass surgery History of partial colectomy S/P TAVR (transcatheter aortic valve replacement) Status post evacuation of subdural hematoma Family History Other Family history non-contributory Social History Smoking Status: Former smoker Tobacco Type: Cigarettes Second Hand Exposure: No; Hx Alcohol Use: No Hx Substance Use: No Preferred Language: Turkmen Communication Ability: Effective Grinder Set Up Operator Internal Required: No Beliefs That Will Affect Care: None marital status: Current Living Situation: Family current occupational status: employed and retired How many Children do You have: 3 Feels Safe at Home: Yes Assistive Devices: Cane and Wheelchair Allergies Allergies Allergy/AdvReac Type Severity Reaction Status Date / Time No Known Allergies Allergy Mild NONE Verified 10/25/21 01:23 Home Meds Home Medications Medication Instructions Recorded Confirmed finasteride 5 mg tablet 5 mg PO QAM 01/17/21 10/25/21 glipizide 10 mg tablet 20 mg PO BID 01/17/21 10/25/21 metoprolol succinate 50 mg 50 mg PO QAM 01/17/21 10/25/21 tablet,extended release 24 hr simvastatin 20 mg tablet 20 mg PO HS 01/17/21 10/25/21 tamsulosin 0.4 mg capsule 0.4 mg PO QAM 01/17/21 10/25/21 triamcinolone acetonide 0.1 % 1 applic topical BID Right Leg 10/01/21 10/25/21 topical ointment Wound amlodipine 5 mg tablet 5 mg PO QAM 10/25/21 10/25/21 amoxicillin 500 mg tablet 2,000 mg PO DIRECTED PRN 1 HOUR 10/25/21 10/25/21 PRIOR TO DENTAL PROCEDURES. cyanocobalamin (vitamin B-12) 5,000 mcg PO QAM 10/25/21 10/25/21 5,000 mcg capsule warfarin 5 mg tablet See Rx Instructions .Route .COMPLEX 10/25/21 10/25/21 Previous Rx's Medication Instructions Recorded furosemide 40 mg tablet 40 mg PO BID #60 tabs 03/22/21 folic acid 1 mg tablet 1 mg PO QAM #30 tabs 10/07/21 Results & Data (ED) Vital Signs Vital Signs - 24 hr 10/25/21 00:55 10/25/21 00:55 10/25/21 04:30 Temperature 36.6 C 36.6 C Temperature Source Oral Oral Pulse Rate 90 83 Pulse Rhythm Regular Pulse Strength Normal Respiratory Rate 18 16 Respiratory Effort / Characteristics Non-Labored Respiratory Depth Respiratory Pattern Regular Blood Pressure 145/71 H 150/89 H Blood Pressure [Right Arm] Blood Pressure Mean 95 109 Blood Pressure Mean [Right Arm] Blood Pressure Position Blood Pressure Position [Right Arm] Pulse Oximetry 100 93 Oxygen Delivery Method Room Air Room Air Oxygen Flow Rate 0 Sepsis Recent Fever Within 48 Hours No Sepsis New/Unexplained Change in Mental Status No Sepsis Action Taken by Nursing No Action Required 10/25/21 02:55 10/25/21 04:45 10/25/21 05:00 Temperature 36.6 C 36.6 C 36.7 C Temperature Source Oral Oral Oral Pulse Rate 82 83 Pulse Rhythm Regular Pulse Strength Normal Respiratory Rate 16 16 18 Respiratory Effort / Characteristics Non-Labored Spontaneous Respiratory Depth Normal Respiratory Pattern Regular Blood Pressure 132/68 147/76 H Blood Pressure [Right Arm] 150/89 H Blood Pressure Mean 89 99 Blood Pressure Mean [Right Arm] 109 Blood Pressure Position Lying Blood Pressure Position [Right Arm] Lying Pulse Oximetry 93 96 98 Oxygen Delivery Method Room Air Oxygen Flow Rate 0 0 Sepsis Recent Fever Within 48 Hours Sepsis New/Unexplained Change in Mental Status Sepsis Action Taken by Shelter Medications Current Medication List: was personally reviewed by me Laboratory Data Attestation: I reviewed the patient's lab results. Result diagrams: 10/29/21 14:17 10/29/21 14:17 Lab Results 10/25/21 10/25/21 10/25/21 Range/Units 01:45 01:45 01:45 WBC 5.75 (4.8-10.8) K/ul RBC 2.64 L (4.63-6.08) M/uL Hgb 7.2 L (14.0-18.0) g/dl Hct 22.4 L (40.1-51.0) % MCV 84.8 (80.0-100.0) fL MCH 27.3 (25.0-34.0) pg MCHC 32.1 (32.0-36.0) g/dL RDW Std Deviation 52.0 H (36.4-46.3) fL RDW Coeff of Jose A 16.8 H (11.5-14.5) % Plt Count 93 L (130-400) K/uL MPV 9.5 (9.4-12.4) fL Immature Gran % (Auto) 0.5 % Neut % (Auto) 90.5 % Lymph % (Auto) 4.2 % [place] % (Auto) 4.3 % Eos % (Auto) 0.2 % Baso % (Auto) 0.3 % Neut # (Auto) 5.20 (1.4-6.5) K/uL Lymph # (Auto) 0.24 L (1.2-3.4) K/uL [place] # (Auto) 0.25 (0.24-0.82) K/uL Eos # (Auto) 0.01 (0-0.50) K/uL Baso # (Auto) 0.02 (0-0.2) K/uL Immature Gran # (Auto) 0.03 H (0.00-0.02) K/uL RBC Morphology Unremarkable PT 24.1 H (9.0-12.0) Seconds INR 2.4 H (0.9-1.1) APTT 39.3 H (21.0-31.0) Seconds PTT Ratio 1.4 Sodium 130 L (136-145) mmol/L Potassium 3.3 L (3.5-5.1) mmol/L Chloride 96 L (98-107) mmol/L Carbon Dioxide 26 (21-32) mmol/L Anion Gap 8 (3-11) BUN 23 (6-23) mg/dl Creatinine 1.39 (0.6-1.4) mg/dl Est Cr Clr Drug Dosing 38.4 ml/min Est GFR ( Amer) 52.8 ml/min Est GFR (Non-Af Amer) 45.6 ml/min BUN/Creatinine Ratio 16.5 (10-20) Glucose 69 L (70-99(Fasting)) mg/dl POC Glucose (70-99) mg/dl Calcium 8.2 L (8.5-10.1) mg/dl Magnesium 1.7 (1.7-2.4) mg/dl Total Bilirubin 1.3 H (0.2-1.0) mg/dl AST 13 (13-39) U/L ALT 10 (7-52) U/L Alkaline Phosphatase 84 (34-104) U/L Troponin I High Sens 35.3 H (0-20) pg/ml Total Protein 6.7 (6.0-8.3) gm/dl Albumin 3.1 L (3.4-5.0) gm/dl Globulin 3.6 (2.5-4.0) gm/dl Albumin/Globulin Ratio 0.9 (0.9-2) Urine Color Urine Appearance (Clear) Urine pH (4.5-7.5) Ur Specific [place] (1.000-1.030) Urine Protein (Negative) Urine Glucose (UA) (Negative) Urine Ketones (Negative) Urine Blood (Negative) Urine Nitrite (Negative) Urine Bilirubin (Negative) Urine Urobilinogen (Negative) Ur Leukocyte Esterase (Negative) Urine WBC (Auto) (0-5) /hpf Urine RBC (Auto) (0-4) /hpf U Hyaline Cast (Auto) (0-5) /lpf U Epithel Cells (Auto) (0-5) /lpf Urine Bacteria (Auto) (Negative) SARS-CoV-2, RNA, NAAT (NEGATIVE) Blood Type Antibody Screen Crossmatch 10/25/21 10/25/21 10/25/21 Range/Units 02:03 02:12 03:34 WBC (4.8-10.8) K/ul RBC (4.63-6.08) M/uL Hgb (14.0-18.0) g/dl Hct (40.1-51.0) % MCV (80.0-100.0) fL MCH (25.0-34.0) pg MCHC (32.0-36.0) g/dL RDW Std Deviation (36.4-46.3) fL RDW Coeff of Jose A (11.5-14.5) % Plt Count (130-400) K/uL MPV (9.4-12.4) fL Immature Gran % (Auto) % Neut % (Auto) % Lymph % (Auto) % [place] % (Auto) % Eos % (Auto) % Baso % (Auto) % Neut # (Auto) (1.4-6.5) K/uL Lymph # (Auto) (1.2-3.4) K/uL [place] # (Auto) (0.24-0.82) K/uL Eos # (Auto) (0-0.50) K/uL Baso # (Auto) (0-0.2) K/uL Immature Gran # (Auto) (0.00-0.02) K/uL RBC Morphology PT (9.0-12.0) Seconds INR (0.9-1.1) APTT (21.0-31.0) Seconds PTT Ratio Sodium (136-145) mmol/L Potassium (3.5-5.1) mmol/L Chloride (98-107) mmol/L Carbon Dioxide (21-32) mmol/L Anion Gap (3-11) BUN (6-23) mg/dl Creatinine (0.6-1.4) mg/dl Est Cr Clr Drug Dosing ml/min Est GFR ( Amer) ml/min Est GFR (Non-Af Amer) ml/min BUN/Creatinine Ratio (10-20) Glucose (70-99(Fasting)) mg/dl POC Glucose 57 L* (70-99) mg/dl Calcium (8.5-10.1) mg/dl Magnesium (1.7-2.4) mg/dl Total Bilirubin (0.2-1.0) mg/dl AST (13-39) U/L ALT (7-52) U/L Alkaline Phosphatase (34-104) U/L Troponin I High Sens (0-20) pg/ml Total Protein (6.0-8.3) gm/dl Albumin (3.4-5.0) gm/dl Globulin (2.5-4.0) gm/dl Albumin/Globulin Ratio (0.9-2) Urine Color Yellow Urine Appearance Clear (Clear) Urine pH 6.0 (4.5-7.5) Ur Specific [place] 1.007 (1.000-1.030) Urine Protein 1+ H (Negative) Urine Glucose (UA) Negative (Negative) Urine Ketones Negative (Negative) Urine Blood 3+ H (Negative) Urine Nitrite Negative (Negative) Urine Bilirubin Negative (Negative) Urine Urobilinogen Negative (Negative) Ur Leukocyte Esterase Negative (Negative) Urine WBC (Auto) 1-5 (0-5) /hpf Urine RBC (Auto) >30 H (0-4) /hpf U Hyaline Cast (Auto) 0 (0-5) /lpf U Epithel Cells (Auto) 0-5 (0-5) /lpf Urine Bacteria (Auto) Negative (Negative) SARS-CoV-2, RNA, NAAT (NEGATIVE) Blood Type B Positive Antibody Screen NEGATIVE Crossmatch See Detail 10/25/21 Range/Units 04:26 WBC (4.8-10.8) K/ul RBC (4.63-6.08) M/uL Hgb (14.0-18.0) g/dl Hct (40.1-51.0) % MCV (80.0-100.0) fL MCH (25.0-34.0) pg MCHC (32.0-36.0) g/dL RDW Std Deviation (36.4-46.3) fL RDW Coeff of Jose A (11.5-14.5) % Plt Count (130-400) K/uL MPV (9.4-12.4) fL Immature Gran % (Auto) % Neut % (Auto) % Lymph % (Auto) % [place] % (Auto) % Eos % (Auto) % Baso % (Auto) % Neut # (Auto) (1.4-6.5) K/uL Lymph # (Auto) (1.2-3.4) K/uL [place] # (Auto) (0.24-0.82) K/uL Eos # (Auto) (0-0.50) K/uL Baso # (Auto) (0-0.2) K/uL Immature Gran # (Auto) (0.00-0.02) K/uL RBC Morphology PT (9.0-12.0) Seconds INR (0.9-1.1) APTT (21.0-31.0) Seconds PTT Ratio Sodium (136-145) mmol/L Potassium (3.5-5.1) mmol/L Chloride (98-107) mmol/L Carbon Dioxide (21-32) mmol/L Anion Gap (3-11) BUN (6-23) mg/dl Creatinine (0.6-1.4) mg/dl Est Cr Clr Drug Dosing ml/min Est GFR ( Amer) ml/min Est GFR (Non-Af Amer) ml/min BUN/Creatinine Ratio (10-20) Glucose (70-99(Fasting)) mg/dl POC Glucose (70-99) mg/dl Calcium (8.5-10.1) mg/dl Magnesium (1.7-2.4) mg/dl Total Bilirubin (0.2-1.0) mg/dl AST (13-39) U/L ALT (7-52) U/L Alkaline Phosphatase (34-104) U/L Troponin I High Sens (0-20) pg/ml Total Protein (6.0-8.3) gm/dl Albumin (3.4-5.0) gm/dl Globulin (2.5-4.0) gm/dl Albumin/Globulin Ratio (0.9-2) Urine Color Urine Appearance (Clear) Urine pH (4.5-7.5) Ur Specific [place] (1.000-1.030) Urine Protein (Negative) Urine Glucose (UA) (Negative) Urine Ketones (Negative) Urine Blood (Negative) Urine Nitrite (Negative) Urine Bilirubin (Negative) Urine Urobilinogen (Negative) Ur Leukocyte Esterase (Negative) Urine WBC (Auto) (0-5) /hpf Urine RBC (Auto) (0-4) /hpf U Hyaline Cast (Auto) (0-5) /lpf U Epithel Cells (Auto) (0-5) /lpf Urine Bacteria (Auto) (Negative) SARS-CoV-2, RNA, NAAT NEGATIVE (NEGATIVE) Blood Type Antibody Screen Crossmatch Administered Medications Amlodipine Besylate (Amlodipine Besylate 5 Mg Tab) [facility] [place] Stop: 11/27/21 08:59 Last Admin: 10/29/21 08:37 Dose: 5 mg Documented By: Admin: 10/28/21 08:14 Dose: 5 mg Documented By: EDGAR Cyanocobalamin (Cyanocobalamin (B-12) 2,500 Mcg Tablet) 5,000 mcg SL [facility] Stop: 11/24/21 08:59 Last Admin: 10/29/21 08:36 Dose: 5,000 mcg Documented By: Admin: 10/28/21 08:13 Dose: 5,000 mcg Documented By: Admin: 10/27/21 09:42 Dose: 5,000 mcg Documented By: Admin: 10/26/21 08:22 Dose: 5,000 mcg Documented By: Admin: 10/25/21 08:19 Dose: 5,000 mcg Documented By: REILLY Finasteride (Finasteride 5 Mg Tab) 5 [facility] [place] Stop: 11/24/21 08:59 Last Admin: 10/29/21 09:46 Dose: 5 mg Documented By: Admin: 10/28/21 08:14 Dose: 5 mg Documented By: Admin: 10/27/21 09:42 Dose: 5 mg Documented By: Admin: 10/26/21 08:21 Dose: 5 mg Documented By: Admin: 10/25/21 08:18 Dose: 5 mg Documented By: REILLY Folic Acid (Folic Acid 1 Mg Tab) 1 mg PO QAM [facility] Stop: 11/24/21 08:59 Last Admin: 10/29/21 08:35 Dose: 1 mg Documented By: Admin: 10/28/21 08:14 Dose: 1 mg Documented By: Admin: 10/27/21 09:42 Dose: 1 mg Documented By: Admin: 10/26/21 08:22 Dose: 1 mg Documented By: Admin: 10/25/21 08:19 Dose: 1 mg Documented By: REILLY Furosemide (Furosemide 40 Mg Tab) 40 mg PO BID17 [facility] Stop: 11/27/21 16:59 Last Admin: 10/29/21 08:37 Dose: 40 mg Documented By: Admin: 10/28/21 17:01 Dose: 40 mg Documented By: EDGAR Sodium Chloride (Nss 1000ml) 1,000 mls @ 60 mls/hr IV .[id number] [facility] Stop: 10/30/21 08:09 Last Admin: 10/29/21 16:39 Dose: 60 mls/hr Documented By: NATHAN Insulin Aspart (Insulin Aspart Per Unit) 0 units SC ACHS [facility] Stop: 11/24/21 07:44 Last Admin: 10/29/21 20:57 Dose: 2 units Documented By: KEVIN Co-signed By: YANNI Admin: 10/29/21 17:30 Dose: 5 units Documented By: NATHAN Co-signed By: BYRON Admin: 10/29/21 13:01 Dose: 2 units Documented By: NATHAN Co-signed By: ANDREW Admin: 10/29/21 08:35 Dose: 1 units Documented By: NATHAN Co-signed By: ANDREW Admin: 10/28/21 21:29 Dose: 1 units Documented By: HOLLY Co-signed By: MARA Admin: 10/28/21 17:04 Dose: 4 units Documented By: EDGAR Co-signed By: GUZMAN Admin: 10/28/21 12:38 Dose: 4 units Documented By: EDGAR Co-signed By: GUZMAN Admin: 10/28/21 08:10 Dose: 3 units Documented By: WS Co-signed By: CG Admin: 10/27/21 20:27 Dose: 1 units Documented By: HOLLY Co-signed By: AMB Admin: 10/27/21 17:16 Dose: 2 units Documented By: EDGAR Co-signed By: Admin: 10/27/21 12:37 Dose: 3 units Documented By: WS Co-signed By: Admin: 10/27/21 09:44 Dose: 3 units Documented By: WS Co-signed By: CRW Admin: 10/26/21 20:33 Dose: 2 units Documented By: ARR Co-signed By: AMB Admin: 10/26/21 17:47 Dose: 4 units Documented By: WS Co-signed By: Admin: 10/26/21 12:50 Dose: 4 units Documented By: EDGAR Co-signed By: MAD Admin: 10/26/21 08:27 Dose: 2 units Documented By: WS Co-signed By: Admin: 10/25/21 20:33 Dose: 1 units Documented By: KEVIN Co-signed By: PK Admin: 10/25/21 17:28 Dose: Not Given Documented By: Admin: 10/25/21 12:03 Dose: Not Given Documented By: Admin: 10/25/21 09:18 Dose: 3 units Documented By: REILLY Co-signed By: Magnesium Oxide (Magnesium Oxide 400 Mg Tab) 400 [facility] [place] Stop: 11/25/21 10:29 Last Admin: 10/29/21 08:38 Dose: 400 mg Documented By: Admin: 10/28/21 08:14 Dose: 400 mg Documented By: Admin: 10/27/21 09:42 Dose: 400 mg Documented By: Admin: 10/26/21 10:56 Dose: 400 mg Documented By: EDGAR Metoprolol Succinate (Metoprolol Succ 50mg Ext Rel Tab) 50 mg [facility] [place] Stop: 11/24/21 08:59 Last Admin: 10/29/21 08:38 Dose: 50 mg Documented By: Admin: 10/28/21 08:14 Dose: 50 mg Documented By: Admin: 10/27/21 09:42 Dose: 50 mg Documented By: Admin: 10/26/21 08:22 Dose: 50 mg Documented By: Admin: 10/25/21 08:19 Dose: 50 mg Documented By: REILLY Simvastatin (Simvastatin 20 Mg Tab) 20 mg PO [facility] Stop: 11/24/21 20:59 Last Admin: 10/29/21 20:58 Dose: 20 mg Documented By: Admin: 10/28/21 20:32 Dose: 20 mg Documented By: Admin: 10/27/21 20:31 Dose: 20 mg Documented By: Admin: 10/26/21 20:36 Dose: 20 mg Documented By: Admin: 10/25/21 20:28 Dose: 20 mg Documented By: KEVIN Tamsulosin HCl (Tamsulosin Hcl 0.4 Mg Cap) 0.4 mg PO [facility] Stop: 11/24/21 20:59 Last Admin: 10/29/21 20:58 Dose: 0.4 mg Documented By: Admin: 10/28/21 20:33 Dose: 0.4 mg Documented By: Admin: 10/27/21 20:31 Dose: 0.4 mg Documented By: Admin: 10/26/21 20:36 Dose: 0.4 mg Documented By: Admin: 10/25/21 20:28 Dose: 0.4 mg Documented By: KEVIN Warfarin Sodium (Warfarin Sod 5 Mg Tab) 5 mg PO [id number]@1600 [facility] Stop: 11/25/21 15:59 Last Admin: 10/29/21 16:39 Dose: 5 mg Documented By: Admin: 10/28/21 17:01 Dose: 5 mg Documented By: Admin: 10/26/21 17:44 Dose: 5 mg Documented By: EDGAR Warfarin Sodium (Warfarin Sod 2.5 Mg Tab) 2.5 mg PO [id number]@1600 [facility] Stop: 11/26/21 15:59 Last Admin: 10/27/21 17:27 Dose: 2.5 mg Documented By: EDGAR Discontinued Medications Dextrose (Dextrose 50% 50 Ml Syringe) 25 ml IV NOW STA Stop: 10/25/21 03:37 Last Admin: 10/25/21 03:47 Dose: 25 ml Documented By: WES Dextrose (Dextrose 50% 50 Ml Syringe) Confirm Administered Dose 50 ml IV .STK- MED ONE Stop: 10/25/21 03:38 Last Admin: 10/25/21 03:48 Dose: Not Given Documented By: WES Dextrose (Dextrose 50% 50 Ml Syringe) 50 ml IV NOW STA Stop: 10/25/21 06:03 Last Admin: 10/25/21 06:18 Dose: 50 ml Documented By: NINO Furosemide (Furosemide 40 Mg/4 Ml Vial) 40 mg IV ONE ONE Stop: 10/25/21 14:48 Last Admin: 10/25/21 15:15 Dose: 40 mg Documented By: REILLY Sodium Chloride (Nss 1000ml) 1,000 mls @ 100 mls/hr IV .Q10H [facility] Stop: 11/24/21 01:59 Last Admin: 10/25/21 13:33 Dose: Not Given Documented By: Admin: 10/25/21 02:12 Dose: Not Given Documented By: WES Potassium Chloride/Dextrose/Sod Cl (D5w And 1/2nss + 20meq Kcl) 20 meq in 1,000 mls @ 60 mls/hr IV .[id number] [facility]; Protocol Stop: 11/24/21 06:14 Last Infusion: 10/26/21 08:18 Dose: 0 mls/hr Documented By: Admin: 10/26/21 02:23 Dose: 60 mls/hr Documented By: Infusion: 10/25/21 23:23 Dose: 60 mls/hr Documented By: Admin: 10/25/21 06:42 Dose: 60 mls/hr Documented By: WES Iron Sucrose 200 mg/ Sodium (Chloride) 110 mls @ 220 mls/hr IV TODAY ONE Stop: 10/27/21 09:14 Last Infusion: 10/27/21 10:24 Dose: 0 mls/hr Documented By: Admin: 10/27/21 09:40 Dose: 220 mls/hr Documented By: EDGAR Iron Sucrose 200 mg/ Sodium (Chloride) 110 mls @ 220 mls/hr IV TODAY ONE Stop: 10/28/21 13:14 Last Infusion: 10/28/21 14:18 Dose: 0 mls/hr Documented By: Admin: 10/28/21 13:34 Dose: 220 mls/hr Documented By: EDGAR Iron Sucrose 200 mg/ Sodium (Chloride) 110 mls @ 220 mls/hr IV QAM ONE Stop: 10/29/21 10:29 Last Infusion: 10/29/21 10:16 Dose: 0 mls/hr Documented By: Admin: 10/29/21 09:46 Dose: 220 mls/hr Documented By: NATHAN Ioversol (Optiray 300 500ml) 125 ml IV ONCE ONE Stop: 10/25/21 03:40 Last Admin: 10/25/21 03:39 Dose: 118 ml Documented By: IKE Imaging Data Radiologist's Impression: Head CT 10/25/21 01:48 CT SCAN OF THE BRAIN WITHOUT IV CONTRAST CLINICAL HISTORY: Change in mental status. Slurred speech. Stroke like symptoms. COMPARISON STUDY: CT of the brain dated 10/21/2021. TECHNIQUE: Unenhanced axial CT scan of the brain is performed from the vertex to the skull base. A dose lowering technique was utilized adhering to the principles of ALARA. The examination is degraded by motion artifact. The patient was scanned twice in an effort to improve image quality. CT DOSE: 1879.53 mGy.cm FINDINGS: Brain parenchyma: There is age-related involutional change noting mild subcortical and periventricular microangiopathic disease. There is no hemorrhage, mass effect, or evidence of acute territorial ischemia by CT criteria. A chronic lacunar infarct is noted in the right basal ganglia. Robertson- white matter differentiation is preserved. No extra-axial fluid collection is seen. Ventricles, sulci, cisterns: Prominent secondary to involutional change. Intracranial vasculature: There is atherosclerotic calcification of the cavernous carotid and vertebral arteries. Calvarium: There is a right parietal jose hole. No destructive calvarial lesion is seen. Sinuses and mastoids: The paranasal sinuses are clear. The mastoid air cells are well pneumatized. Orbits: The bony orbits are grossly intact. There are bilateral ocular lens imp lants. IMPRESSION: There is no hemorrhage, mass effect, or evidence of acute territorial ischemia by CT criteria. ACT 112: Negative or not required by law. Electronically signed by: Shon Zhao M.D. 10/25/2021 7:26 AM Head CTA 10/25/21 01:48 CTA ANGIOGRAPHY OF THE HEAD CLINICAL HISTORY: Stroke Like Symptoms. Altered mental status. Slurred speech. COMPARISON STUDY: CT of the head October 21, 2021. TECHNIQUE: Helical axial images of the head were obtained following uneventful intravenous administration of 118 cc of Optiray. Sagittal and coronal reconstructions were viewed as well as maximal intensity projections on an independent 3-D workstation. Automated exposure control was utilized for the study. A dose lowering technique was utilized adhering to the principles of ALARA. FINDINGS: A defect within the right parietal calvarium is unchanged since CT of November 23, 2017. There is an indeterminate 9 mm lucent lesion within the left lateral mass of C1. There is extensive calcified plaque within bilateral cavernous carotids without significant stenosis. The bilateral M1, M2, A1 and A2 segments are patent. No intracranial aneurysm is identified. No central vessel occlusion is present. Paravertebral artery is dominant. Posterior circulation is intact. CT of the head will be reported separately. Ventricular system is stable. Basal cisterns are patent. There are no intra-axial collections. IMPRESSION: 1. No central vessel occlusion. No intracranial aneurysm. 2. Extensive calcified plaque within bilateral cavernous carotids without significant stenosis. ACT 112: Negative or not required by law. Electronically signed by: Dominick Helms M.D. 10/25/2021 7:27 AM Neck CTA 10/25/21 01:48 CT ANGIOGRAM OF THE NECK CLINICAL HISTORY: Slurred speech. Change in mental status. Stroke like symptoms. COMPARISON STUDY: No priors. TECHNIQUE: Following the IV administration of 118 of Optiray 300, CT angiogram of the neck was performed from the aortic arch to the skull base. Images are reviewed in the axial, sagittal, and coronal planes. 3-D MIPS images are created and assessed. IV contrast was administered without complication. All measurements were calculated based on NASCET criteria. A dose lowering technique was utilized adhering to the principles of ALARA. FINDINGS: Thoracic aorta: There is atherosclerotic calcification of the thoracic aorta. Visualized portions of the thoracic aorta are normal in caliber. The aortic arch demonstrates 4-vessel variant anatomy. The left vertebral artery arises directly from the thoracic aorta. Right carotid arterial system: The right common carotid artery is widely patent, as are the right internal and external carotid arteries. Calcified plaque is noted in the carotid bulb. Left carotid arterial system: The left common carotid artery is widely patent, as are the left internal and external carotid arteries. Calcified plaque is noted in the carotid bulb. Vertebral arteries: The vertebral arteries are widely patent bilaterally noting right-sided dominance. Subclavian arteries: Widely patent bilaterally. Intracranial vasculature: The visualized intracranial vessels of the skull base appear patent. Jugular veins: Widely patent bilaterally. Brain parenchyma: The visualized brain parenchyma the skull base is within normal limits age related involutional change. Upper chest: A cardiac pacemaker is noted in the left upper chest. Partially visualized upper lobe lung parenchyma appears clear. Soft tissues: The visualized pharyngeal soft tissues are normal in appearance noting angiographic phase technique. The oropharyngeal airway appears widely patent. The thyroid gland is heterogeneous. The salivary glands are normal in appearance. No cervical lymphadenopathy is seen. Skeletal structures: The skeletal structures are osteopenic. The visualized calvarium at the skull base appears intact. The imaged cervical spine is maintained noting multilevel spondylosis. No lytic or blastic lesion is seen. Sinuses and mastoids: Trace mucosal thickening is seen in the right maxillary antrum. The remaining visualized paranasal sinuses are clear. There is trace ri ght mastoid effusion. The left mastoid air cells are well pneumatized. IMPRESSION: Unremarkable CT angiogram of the neck. ACT 112: Negative or not required by law. Electronically signed by: Shon Zhao M.D. 10/25/2021 7:30 AM Blood Pressure Blood Pressure Findings: Low blood pressure Blood Pressure Disposition: further management by hospitalist Discharge Plan Visit Data Chief Complaint: Altered Mental Status ED Provider: Moni Petit Discharge Problem: Diabetes, AMS (altered mental status), Chronic anticoagulation, Atrial fibrillation Patient Disposition: Admitted As Inpatient Discharge Instructions Interventions: ED Discharge Assessment Last Done: 10/25/21 07:20
[2021-10-25] MEDS: FINASTERIDE 5 MG TAB PO SCH (08:18)
[2021-10-25] MEDS: METOPROLOL SUCC 50MG EXT REL TAB PO SCH (08:19)
[2021-10-25] MEDS: FOLIC ACID 1 MG TAB PO SCH (08:19)
[2021-10-25] MEDS: CYANOCOBALAMIN (B-12) 2,500 MCG TABLET SL SCH (08:19)
[2021-10-25] MEDS: INSULIN ASPART PER UNIT SC SCH ×4 (09:18→20:33)
--- NOTE | 2021-10-25 13:40 | History & Physical Bridge Note ---
Date of Service October 25, 2021 History & Physical Bridge Note I have examined the patient, reviewed the History & Physical and in the interval since the performance of the History & Physical I have noted the following changes of clinical significance: no changes noted Patient hospitalized with generalized weakness, acute on chronic normocytic normochromic anemia after a recent hospitalization (just d/c'd 10/07) for ABLA secondary to GI bleed. He was restarted on Warfarin therapy and was instructed to f/u with [facility] for colonoscopy and/or capsule endoscopy. Pt returned to ED 10/24 d/t progressively worsening fatigue and inability to participate with PT. Found to have acutely worse hgb of 7.2 for which 2 units of blood has been ordered with dose of Lasix in between units. Warfarin placed on hold. Hemoccult all stools ordered. May need to consider consult with [facility] again if there is a concern for recurrent GI bleeding. Marginally elevated troponin likely to reflect myocardial demand ischemia d/t acutely worsening anemia. On exam, Flkao is comfortable in bed and offers no complaints other than asking when he leave. His heart is regular, lungs are diminished but otherwise clear, and legs with 1+ pitting edema. Will stop fluids that were ordered by ED. Repeat labs ordered for tomorrow. Trend H&H. PT/OT eval. Perhaps would benefit from short stay in rehab. No other changes to plan as ordered by overnight admitting team. Plan d/w Dr. Daniel.
[2021-10-25] MEDS ORDERED: FUROSEMIDE 40 MG/4 ML VIAL IV ONE (14:47)
--- NOTE | 2021-10-25 14:59 | Electrocardiogram Report ---
Test Reason : Blood Pressure : / mmHG Vent. Rate : 087 BPM Atrial Rate : 087 BPM P-R Int : 222 ms QRS Dur : 116 ms QT Int : 428 ms P-R-T Axes : 059 -42 071 degrees QTc Int : 515 ms Atrial-sensed ventricular-paced rhythm with prolonged AV conduction Abnormal ECG When compared with ECG of 21-OCT-2021 09:27, Vent. rate has increased BY 4 BPM Confirmed by Cali Rodriguez ([id number]) on 10/25/2021 2:59:09 PM Referred By: REFERRED SELF Confirmed By:Fernando Rodriguez
[2021-10-25 15:36] LABS: Hematocrit (blood only) 28.9 % (40.1-51.0); Hemoglobin 9.6 g/dl (14.0-18.0)
[2021-10-25] MEDS: TAMSULOSIN HCL 0.4 MG CAP PO SCH (20:28)
[2021-10-25] MEDS: SIMVASTATIN 20 MG TAB PO SCH (20:28)
[2021-10-26] MEDS: D5W AND 1/2NSS + 20MEQ KCL 20 MEQ/1,000 ML BAG IV SCH (02:23)
[2021-10-26 07:10] LABS: Basophils # (auto) 0.01 K/uL (0-0.2); Basophils % (auto) 0.2 %; Eosinophils # (auto) 0.01 K/uL (0-0.50); Eosinophils % (auto) 0.2 %; Hematocrit (blood only) 27.2 % (40.1-51.0); Hemoglobin 8.8 g/dl (14.0-18.0); Immature Granulocytes # (auto) 0.03 K/uL (0.00-0.02); Immature Granulocytes % (auto) 0.5 %; Lymphocytes # (auto) 0.37 K/uL (1.2-3.4); Lymphocytes % (auto) 5.6 %; Mean Corpuscular Hemoglobin 27.2 pg (25.0-34.0); Mean Corpuscular Hgb Conc 32.4 g/dL (32.0-36.0); Mean Corpuscular Volume 84.2 fL (80.0-100.0); Mean Platelet Volume 8.6 fL (9.4-12.4); Monocytes # (auto) 0.32 K/uL (0.24-0.82); Monocytes % (auto) 4.9 %; Neutrophils # (auto) 5.81 K/uL (1.4-6.5); Neutrophils % (auto) 88.6 %; Platelet Count 83 K/uL (130-400); RDW Coefficient of Variation 16.2 % (11.5-14.5); RDW Standard Deviation 49.9 fL (36.4-46.3); Red Blood Count 3.23 M/uL (4.63-6.08); White Blood Count 6.55 K/ul (4.8-10.8)
[2021-10-26 07:37] LABS: Albumin Globulin Ratio 0.8 (0.9-2); Albumin Level 2.9 gm/dl (3.4-5.0); BUN Creatinine Ratio 14.9 (10-20); Bilirubin,Total 2.4 mg/dl (0.2-1.0); Creatinine Clr Calc Pharmacy 37.8 ml/min; Est GFR (African American) 51.9 ml/min; Est GFR (Non-African American) 44.8 ml/min; Globulin 3.5 gm/dl (2.5-4.0); Magnesium 1.6 mg/dl (1.7-2.4); Potassium 4.2 mmol/L (3.5-5.1); Total Protein 6.4 gm/dl (6.0-8.3)
[2021-10-26 07:53] LABS: INR 2.2 (0.9-1.1); Partial Thromboplastin Ratio 1.4; Partial Thromboplastin Time 38.5 Seconds (21.0-31.0); Prothrombin Time 22.4 Seconds (9.0-12.0)
[2021-10-26] MEDS: FINASTERIDE 5 MG TAB PO SCH (08:21)
[2021-10-26] MEDS: METOPROLOL SUCC 50MG EXT REL TAB PO SCH (08:22)
[2021-10-26] MEDS: FOLIC ACID 1 MG TAB PO SCH (08:22)
[2021-10-26] MEDS: CYANOCOBALAMIN (B-12) 2,500 MCG TABLET SL SCH (08:22)
[2021-10-26] MEDS: INSULIN ASPART PER UNIT SC SCH ×4 (08:27→20:33)
[2021-10-26 08:33] LABS: Reticulocyte % 1.7 % (0.5-2.0); Reticulocytes # 0.05 10^6/uL (0.02-0.10)
[2021-10-26 09:28] LABS: Estimated Average Glucose 134 mg/dl; Hemoglobin A1C 6.3 % (4.5-5.6)
[2021-10-26 09:50] LABS: Fibrinogen 548 mg/dl (184-400)
[2021-10-26] MEDS: MAGNESIUM OXIDE 400 MG TAB PO SCH (10:56)
--- NOTE | 2021-10-26 12:06 | Cardiology Consultation ---
Date of Consultation October 26, 2021 Assessment & Plan (1) Coronary artery disease: (2) Chronic heart failure with preserved ejection fraction: (3) Paroxysmal atrial fibrillation: (4) S/P TAVR (transcatheter aortic valve replacement): (5) Pacemaker: (6) CHB (complete heart block): (7) Weakness: Plan 1. Weakness: Multiple possible etiologies. Anemia could be playing a role. He seems to feel better today hemoglobin has improved. I doubt that his generalized weakness is related to an acute cardiac problem. 2. Elevated troponin: The highest value was obtained at the time of his admission. I think this is unlikely to have been an acute coronary syndrome. I think we would seem much greater elevations in that regard. He did not report chest pain at any time. It is very possible that with a low hemoglobin and activity he developed some element of cardiac ischemia. I think at this point I would simply recommend supportive care with improvement of hemoglobin, maintenance of adequate blood pressure, oxygenation in heart rate. 3. Coronary disease: Status post bypass surgery. No current symptoms suggestive of coronary insufficiency or ischemia. I think he be continued on his outpatient medical regimen which contains metoprolol succinate, amlodipine, warfarin and simvastatin. 4. Complete heart block: Normally functioning dual-chamber permanent pacemaker. 5. Atrial fibrillation: No identified arrhythmias. That did not interrogate his device, but he presented in sinus rhythm and has been maintaining sinus rhythm. 6. Aortic stenosis: Status post TAVR. 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 This represents some thrombus involving the leaflets of the valve and he was placed on prophylactic warfarin. Atrial fibrillation is another indication for anticoagulation and ideally he would be maintained on warfarin indefinitely. However, recurrent gastrointestinal hemorrhage is to be taken into account. Heart failure with preserved ejection fraction: He seems euvolemic currently. He has been m aintained on an outpatient diuretic regimen of Lasix twice daily. He was administered an intravenous dose of Lasix yesterday. Hemodynamically appears to be quite stable. Renal function also appears to be stable. I would suggest he continue on his outpatient regimen monitoring his volume status closely in the hospital. Recommendations -I do not believe he requires an ischemic evaluation in the absence of new or worsening symptoms. -continue home cardiac medications including amlodipine, metoprolol and simvastatin -he has 2 current indications for use of warfarin, but in the setting recurrent gastrointestinal hemorrhage this is been discontinued. If he is felt to be high risk for continued bleeding on anticoagulation we can explore additional options for stroke risk reduction on an outpatient basis (ie Watchman) -I recommend continuation of his outpatient diuretic regimen History of Present Illness Reason for Consultation: Elevated troponin, weakness Requesting Physician: Fabiola Attending Physician: Earl Bowser MD History of Present Illness The patient is an 86-year-old gentleman with an extensive past medical history to include coronary artery disease status post surgical revascularization, heart block with placement of permanent pacemaker, aortic stenosis status post TAVR and paroxysmal atrial fibrillation who was admitted to the hospital with declining functional status. Patient was recently admitted for an episode of mental status changes. Evaluation at that time revealed an element of anemia. He underwent upper endoscopy without a defined bleeding source. He was discharged home. Patient reports some diffuse symptoms recently such as weakness. Perhaps mild dizziness at times. Has an element of dyspnea with activity that appears unchanged. No exertional chest pain. It seems he was brought to the emergency room by family member who reported worsening exercise tolerance he was again found to have a low hemoglobin level and admitted to the hospital. Apparently cardiac biomarkers were also obtained which were abnormal. Some time I interviewed the patient claims to be feeling well. He had a large bowel movement this morning and some fecal incontinence. He reports a good appetite. No stomach complaints. Breathing is at baseline. He has lower extremity edema worse on the right versus the left which is also stable by his report. He claims to have been ambulatory around the room without significant dizziness. No symptoms of chest pain. Allergies Allergy/AdvReac Type Severity Reaction Status Date / Time No Known Allergies Allergy Mild NONE Verified 10/25/21 01:23 Home Medications Medication Instructions Recorded Confirmed Type finasteride 5 mg tablet 5 mg PO QAM 01/17/21 10/25/21 History glipizide 10 mg tablet 20 mg PO BID 01/17/21 10/25/21 History metoprolol succinate 50 mg 50 mg PO QAM 01/17/21 10/25/21 History tablet,extended release 24 hr simvastatin 20 mg tablet 20 mg PO HS 01/17/21 10/25/21 History tamsulosin 0.4 mg capsule 0.4 mg PO QAM 01/17/21 10/25/21 History furosemide 40 mg tablet 40 mg PO BID #60 tabs 03/22/21 10/25/21 Rx triamcinolone acetonide 0.1 % 1 applic topical BID Right Leg 10/01/21 10/25/21 History topical ointment Wound folic acid 1 mg tablet 1 mg PO QAM #30 tabs 10/07/21 10/25/21 Rx amlodipine 5 mg tablet 5 mg PO QAM 10/25/21 10/25/21 History amoxicillin 500 mg tablet 2,000 mg PO DIRECTED PRN 1 HOUR 10/25/21 10/25/21 History PRIOR TO DENTAL PROCEDURES. cyanocobalamin (vitamin B-12) 5,000 mcg PO QAM 10/25/21 10/25/21 History 5,000 mcg capsule warfarin 5 mg tablet See Rx Instructions .Route .COMPLEX 10/25/21 10/25/21 History Patient History Medical History (Updated 10/25/21 @ 05:58 by Jaison Aguirre MD) Anticoagulant long-term use BPH w urinary obs/LUTS Chronic heart failure with preserved ejection fraction Colon cancer Coronary artery disease Dark stools Diabetes Hypercholesterolemia Hypertension Lower extremity edema Paroxysmal atrial fibrillation Subdural hematoma Vitamin B12 deficiency (dietary) anemia Surgical History (Updated 10/02/21 @ 17:40 by Scooter Crowley MD) History of heart bypass surgery History of partial colectomy S/P TAVR (transcatheter aortic valve replacement) Status post evacuation of subdural hematoma Family History (Updated 10/01/21 @ 19:42 by Alicia Hendrickson MD) Other Family history non-contributory Social History Smoking Status: Former smoker Tobacco Type: Cigarettes Second Hand Exposure: No; Hx Alcohol Use: No Hx Substance Use: No Preferred Language: Greek Communication Ability: Effective Rosin Barrel Filler Required: No Beliefs That Will Affect Care: None marital status: Current Living Situation: Family current occupational status: employed and retired How many Children do You have: 3 Feels Safe at Home: Yes Assistive Devices: Glasses Review of Systems Review of Systems: Per HPI. Recent fall resulting in right arm fracture. This was a mechanical fall. Physical Exam Physical Exam: The patient is alert and oriented. Mood and affect appeared no rmal. He answered all questions appropriately. HEENT: Pupils are equal and reactive to light and accommodation. Extraocular movements are intact. The sclerae are anicteric. Neuro: Cranial nerves intact Lungs: Clear to auscultation bilaterally. He has good air movement without use of accessory muscles. No rales wheezes or rhonchi. Cardiac: Heart demonstrates a regular rate and rhythm. Normal S1 and S2. Crescendo systolic murmur. Pulses: The patient has palpable radial pulses bilaterally that are equal in intensity Extremities: There was no evidence of hypoperfusion. There is no cyanosis or clubbing. Mild lower extremity edema involving the left leg with trophic changes and lymphedema on the right leg. Skin: I did not appreciate any rashes on examination today. Results & Data ([facility]) Vital Signs (Past 12 Hours) Vital Signs Temp Pulse Pulse Resp BP Pulse Ox O2 Del Method 10/26/21 08:20 Room Air 10/26/21 06:11 81 10/26/21 11:23 36.9 C 74 18 133/76 99 Room Air 10/26/21 07:24 36.9 C 78 18 129/68 98 Room Air 10/26/21 02:50 36.8 C 89 18 136/70 94 Room Air Laboratory Results Abnormal Lab Results 10/25/21 10/25/21 10/25/21 02:12 14:42 15:16 WBC RBC Hgb 9.6 L Hct 28.9 L MCV MCH MCHC RDW Std Deviation RDW Coeff of Jose A Plt Count MPV Immature Gran % (Auto) Neut % (Auto) Lymph % (Auto) [place] % (Auto) Eos % (Auto) Baso % (Auto) Reticulocyte % (Auto) Neut # (Auto) Lymph # (Auto) [place] # (Auto) Eos # (Auto) Baso # (Auto) Reticulocyte # Immature Gran # (Auto) PT INR APTT PTT Ratio Fibrinogen Sodium Potassium Chloride Carbon Dioxide Anion Gap BUN Creatinine Est Cr Clr Drug Dosing Est GFR ( Amer) Est GFR (Non-Af Amer) BUN/Creatinine Ratio Glucose POC Glucose 114 H Estimat Average Glucose Hemoglobin A1c Calcium Magnesium Total Bilirubin AST ALT Alkaline Phosphatase Troponin I High Sens Total Protein Albumin Globulin Albumin/Globulin Ratio Blood Type B Positive Antibody Screen NEGATIVE Direct Antiglob Test EVANS (IgG-AHG) EVANS, Polyspecific EVANS C3b, C3d 5 Min Crossmatch See Detail 10/25/21 10/25/21 10/25/21 15:16 16:17 19:29 WBC RBC Hgb Hct MCV MCH MCHC RDW Std Deviation RDW Coeff of Jose A Plt Count MPV Immature Gran % (Auto) Neut % (Auto) Lymph % (Auto) [place] % (Auto) Eos % (Auto) Baso % (Auto) Reticulocyte % (Auto) Neut # (Auto) Lymph # (Auto) [place] # (Auto) Eos # (Auto) Baso # (Auto) Reticulocyte # Immature Gran # (Auto) PT INR APTT PTT Ratio Fibrinogen Sodium Potassium Chloride Carbon Dioxide Anion Gap BUN Creatinine Est Cr Clr Drug Dosing Est GFR ( Amer) Est GFR (Non-Af Amer) BUN/Creatinine Ratio Glucose POC Glucose 111 H Estimat Average Glucose Hemoglobin A1c Calcium Magnesium Total Bilirubin AST ALT Alkaline Phosphatase Troponin I High Sens 152.4 H* D 139.4 H* Total Protein Albumin Globulin Albumin/Globulin Ratio Blood Type Antibody Screen Direct Antiglob Test EVANS (IgG-AHG) EVANS, Polyspecific EVANS C3b, C3d 5 Min Crossmatch 10/25/21 10/26/21 10/26/21 20:05 01:18 06:51 WBC 6.55 RBC 3.23 L Hgb 8.8 L Hct 27.2 L MCV 84.2 MCH 27.2 MCHC 32.4 RDW Std Deviation 49.9 H RDW Coeff of Jose A 16.2 H Plt Count 83 L MPV 8.6 L Immature Gran % (Auto) 0.5 Neut % (Auto) 88.6 Lymph % (Auto) 5.6 [place] % (Auto) 4.9 Eos % (Auto) 0.2 Baso % (Auto) 0.2 Reticulocyte % (Auto) Neut # (Auto) 5.81 Lymph # (Auto) 0.37 L [place] # (Auto) 0.32 Eos # (Auto) 0.01 Baso # (Auto) 0.01 Reticulocyte # Immature Gran # (Auto) 0.03 H PT INR APTT PTT Ratio Fibrinogen Sodium Potassium Chloride Carbon Dioxide Anion Gap BUN Creatinine Est Cr Clr Drug Dosing Est GFR ( Amer) Est GFR (Non-Af Amer) BUN/Creatinine Ratio Glucose POC Glucose 174 H Estimat Average Glucose Hemoglobin A1c Calcium Magnesium Total Bilirubin AST ALT Alkaline Phosphatase Troponin I High Sens 99.6 H* D Total Protein Albumin Globulin Albumin/Globulin Ratio Blood Type Antibody Screen Direct Antiglob Test EVANS (IgG-AHG) EVANS, Polyspecific EVANS C3b, C3d 5 Min Crossmatch 10/26/21 10/26/21 10/26/21 06:51 06:51 06:51 WBC RBC Hgb Hct MCV MCH MCHC RDW Std Deviation RDW Coeff of Jose A Plt Count MPV Immature Gran % (Auto) Neut % (Auto) Lymph % (Auto) [place] % (Auto) Eos % (Auto) Baso % (Auto) Reticulocyte % (Auto) Neut # (Auto) Lymph # (Auto) [place] # (Auto) Eos # (Auto) Baso # (Auto) Reticulocyte # Immature Gran # (Auto) PT 22.4 H INR 2.2 H APTT 38.5 H PTT Ratio 1.4 Fibrinogen Sodium 129 L Potassium 4.2 D Chloride 97 L Carbon Dioxide 26 Anion Gap 6 BUN 21 Creatinine 1.41 H Est Cr Clr Drug Dosing 37.8 Est GFR ( Amer) 51.9 Est GFR (Non-Af Amer) 44.8 BUN/Creatinine Ratio 14.9 Glucose 172 H POC Glucose Estimat Average Glucose 134 Hemoglobin A1c 6.3 H Calcium 8.0 L Magnesium 1.6 L Total Bilirubin 2.4 H D AST 10 L ALT 9 Alkaline Phosphatase 82 Troponin I High Sens Total Protein 6.4 Albumin 2.9 L Globulin 3.5 Albumin/Globulin Ratio 0.8 L Blood Type Antibody Screen Direct Antiglob Test EVANS (IgG-AHG) EVANS, Polyspecific EVANS C3b, C3d 5 Min Crossmatch 10/26/21 10/26/21 10/26/21 07:23 08:16 08:16 WBC RBC Hgb Hct MCV MCH MCHC RDW Std Deviation RDW Coeff of Jose A Plt Count MPV Immature Gran % (Auto) Neut % (Auto) Lymph % (Auto) [place] % (Auto) Eos % (Auto) Baso % (Auto) Reticulocyte % (Auto) 1.7 Neut # (Auto) Lymph # (Auto) [place] # (Auto) Eos # (Auto) Baso # (Auto) Reticulocyte # 0.05 Immature Gran # (Auto) PT INR APTT PTT Ratio Fibrinogen Sodium Potassium Chloride Carbon Dioxide Anion Gap BUN Creatinine Est Cr Clr Drug Dosing Est GFR ( Amer) Est GFR (Non-Af Amer) BUN/Creatinine Ratio Glucose POC Glucose 180 H Estimat Average Glucose Hemoglobin A1c Calcium Magnesium Total Bilirubin AST ALT Alkaline Phosphatase Troponin I High Sens Total Protein Albumin Globulin Albumin/Globulin Ratio Blood Type Antibody Screen Direct Antiglob Test Negative EVANS (IgG-AHG) Neg EVANS, Polyspecific Neg EVANS C3b, C3d 5 Min Neg Crossmatch 10/26/21 10/26/21 08:16 11:17 WBC RBC Hgb Hct MCV MCH MCHC RDW Std Deviation RDW Coeff of Jose A Plt Count MPV Immature Gran % (Auto) Neut % (Auto) Lymph % (Auto) [place] % (Auto) Eos % (Auto) Baso % (Auto) Reticulocyte % (Auto) Neut # (Auto) Lymph # (Auto) [place] # (Auto) Eos # (Auto) Baso # (Auto) Reticulocyte # Immature Gran # (Auto) PT INR APTT PTT Ratio Fibrinogen 548 H Sodium Potassium Chloride Carbon Dioxide Anion Gap BUN Creatinine Est Cr Clr Drug Dosing Est GFR ( Amer) Est GFR (Non-Af Amer) BUN/Creatinine Ratio Glucose POC Glucose 267 H Estimat Average Glucose Hemoglobin A1c Calcium Magnesium Total Bilirubin AST ALT Alkaline Phosphatase Troponin I High Sens Total Protein Albumin Globulin Albumin/Globulin Ratio Blood Type Antibody Screen Direct Antiglob Test EVANS (IgG-AHG) EVANS, Polyspecific EVANS C3b, C3d 5 Min Crossmatch Diagnostic Findings CT of the head and neck did not demonstrate any acute process. Chest x-ray did not demonstrate any acute findings. 1. Cardiac catheterization 01/21/2021: CLEARY to LAD patent. SVG to OM patent. Mid LAD 100%. Co dominant system. 2. TAVR 04/23/21 at [facility]: 29 mm Ayers Eunice. 3. Echo 08/27/2021: Normal LV systolic function. EF 65%. Normal wall motion. Mild to moderate concentric LVH. biatrial dilation. TAVR with elevated transvalvular velocity and gradient, with leaflets reported as opening well on visual inspection. Moderate mitral stenosis (mean grad 9). Mild to moderate MR. Mild to moderate TR. PASP 46. ECG Additional Comments: EKG obtained the time admission was sinus rhythm with paced QRS PG Care Time/CCT Total # of Minutes Spent Total Time Spent with Patient: Total time spent is greater than 50% in coordination of care (as documented) at patient's floor/unit and/or counseling patient: Coding Level of Care Code 49833 Initial Inpt Care Lvl 3 Diagnoses Coronary artery disease I25.10 Chronic heart failure with preserved ejection fraction I50.32 Paroxysmal atrial fibrillation I48.0 S/P TAVR (transcatheter aortic valve replacement) Z95.2 Pacemaker Z95.0 CHB (complete heart block) I44.2 Weakness R53.1
--- NOTE | 2021-10-26 13:04 | Electrocardiogram Report ---
Test Reason : Blood Pressure : / mmHG Vent. Rate : 090 BPM Atrial Rate : 090 BPM P-R Int : 214 ms QRS Dur : 106 ms QT Int : 422 ms P-R-T Axes : 053 -36 057 degrees QTc Int : 516 ms Atrial-sensed ventricular-paced rhythm with prolonged AV conduction Abnormal ECG When compared with ECG of 25-OCT-2021 01:07, Vent. rate has increased BY 3 BPM Confirmed by Cali Rodriguez ([id number]) on 10/26/2021 1:04:25 PM Referred By: REFERRED SELF Confirmed By:Fernando Rodriguez
[2021-10-26 14:50] LABS: Hematocrit (blood only) 26.3 % (40.1-51.0); Hemoglobin 8.7 g/dl (14.0-18.0)
--- NOTE | 2021-10-26 15:37 | Hospitalist Progress Note ---
Date of Service October 26, 2021 Assessment & Plan (1) Generalized weakness: Plan: Multifactorial: Hypoglycemia, anemia, acute on chronic CHF (2) Symptomatic anemia: Plan: Symptomatic anemia/thrombocytopenia Received 2 units of packed red blood cells in the ER for symptomatic anemia Hemoglobin 7.2 on admission Hemoglobin with appropriate rise to 9.6, subsequent checks 8.8 and 8.7 Hemoccult negative, Hemoccult all stools. Negative so far ? MDS, peripheral smear pending Anticoagulation was held for concern of GI bleed. Past concern has been raised for the potential for AVMs. Of note patient has a normal BUN, and has had negative Hemoccults so far. Intravascular panel does not show positive direct Julius, fibrinogen is not decreased. Patient is high risk to be off warfarin both due to his history of atrial fibrillation and history of aortic stenosis status post TAVR with elevated gradients and some leaflet thrombus in the past. Given this would not hold warfarin unless absolutely necessary, and at this time it is not clearly GI bleeding and may also be MDS. Will resume and follow, follow-up for Hemoccult positive stools. If suddenly positive stools would pursue AVM eval at that time (3) Acute on chronic heart failure with preserved ejection fraction (HFpEF): Plan: Acute on chronic HFpEF/elevated troponin/CAD/status post TAVR/paroxysmal atrial fibrillation/long-term anticoagulant use/pacer- Continue on telemetry Seen by cardiology. Troponin down trended. Low suspicion for ACS, likely some demand with anemia. Further ischemic evaluation not recommended at this time. Lasix can be given if additional blood is required Continue metoprolol succinate, beware hypoglycemic unawareness with glipizide Amlodipine held Patient remains normotensive Diet resumed (4) Elevated troponin: Plan: See above (5) Hypoglycemia associated with diabetes: (6) Coronary artery disease: (7) History of heart bypass surgery: (8) Paroxysmal atrial fibrillation: (9) DM II (diabetes mellitus, type II), controlled: Plan: Hold and discontinue glipizide 20 mg p.o. twice daily Will likely have issues with hypoglycemia for next [address] Accu-Cheks primarily for follow-up sugars BSG dropped to 57 while in the ED, and D50 and started on Luke with D5 Diet advanced (10) S/P TAVR (transcatheter aortic valve replacement): (11) Anticoagulant long-term use: Plan: Warfarin resumed as noted (12) Pacemaker: (13) CKD (chronic kidney disease) stage 3, GFR 30-59 ml/min: Plan: Creatinine 1.39 upon admission, with range 1.25-1.60 Follow serially (14) Aortic stenosis: (15) Hypercholesterolemia: Plan: Continue simvastatin (16) Vitamin B12 deficiency (dietary) anemia: Plan: Continue supplement (17) BPH w urinary obs/LUTS: Plan: Continue tamsulosin, but changed to evening, as taking in the morning may be c ontributing to part of his symptoms Admission and Anticipated Discharge Date Admission Date: October 25, 2021 Rae Arriola is seen at the bedside this morning. He reports he feels okay, and better than yesterday. He denies lightheadedness, dizziness, chest pain, chest p ressure, shortness of breath, difficulty breathing. He reports he did feel very weak yesterday. He denies any bleeding to his knowledge. Reports he normally has a regular bowel movement which is brown, and which is not dark or black and has not had any red in it. He reports he has had a recent upper endoscopy earlier this month which did not show any evidence of upper GI bleed. Review of Systems Review of Systems: All systems reviewed & are unremarkable except as noted in Subjective Physical Exam Physical Exam: General: A&Ox3. NAD. Cooperative. Sitting up in bedside chair comfortably. HEENT: Atraumatic, normocephalic. And hearing grossly intact, EOM intact. Pupils equal and reactive to light. Pulm: CTAB A&P. -wheezes, -rales, -rhonchi. Symmetrical chest rise. No increase in work of breathing. No respiratory distress. Cardiac: RRR, -mrg. Radial pulses intact and symmetrical. Abdominal: Nontender, nondistended, soft. BS present. Extremities: Warm and dry. Sensation of soft touch intact in hands and feet without asymmetry Results & Data Results & Data ([facility]) Vital Signs (Past 12 Hours) Vital Signs Temp Pulse Pulse Resp BP Pulse Ox O2 Del Method 10/26/21 08:20 Room Air 10/26/21 06:11 81 10/26/21 11:23 36.9 C 74 18 133/76 99 Room Air 10/26/21 07:24 36.9 C 78 18 129/68 98 Room Air PG Care Time/CCT Total # of Minutes Spent Total Time Spent with Patient: Total time spent is greater than 50% in coordination of care (as documented) at patient's floor/unit and/or counseling patient: Coding Level of Care Code 69162 Subseq Hosp Care Lvl 2 Diagnoses Generalized weakness R53.1 Symptomatic anemia D64.9 Acute on chronic heart failure with preserved ejection fraction (HFpEF) I50.33 Elevated troponin R77.8 Hypoglycemia associated with diabetes E11.649 Coronary artery disease I25.10 History of heart bypass surgery Z95.1 Paroxysmal atrial fibrillation I48.0 DM II (diabetes mellitus, type II), controlled E11.9 S/P TAVR (transcatheter aortic valve replacement) Z95.2 Anticoagulant long-term use Z79.01 Pacemaker Z95.0 CKD (chronic kidney disease) stage 3, GFR 30-59 ml/min N18.30 Aortic stenosis I35.0 Cardiac valve disease etiology: etiology unspecified Hypercholesterolemia E78.00 Vitamin B12 deficiency (dietary) anemia D51.8 BPH w urinary obs/LUTS N40.1; N13.8 (1) Aortic stenosis Cardiac valve disease etiology: etiology unspecified Qualified Code(s): I35.0 - Nonrheumatic aortic (valve) stenosis
[2021-10-26 16:52] LABS: Ferritin 475.2 ng/ml (8-388)
[2021-10-26] MEDS: WARFARIN SOD 5 MG TAB PO SCH (17:44)
[2021-10-26] MEDS: TAMSULOSIN HCL 0.4 MG CAP PO SCH (20:36)
[2021-10-26] MEDS: SIMVASTATIN 20 MG TAB PO SCH (20:36)
[2021-10-27 06:45] LABS: Basophils # (auto) 0.02 K/uL (0-0.2); Basophils % (auto) 0.4 %; Eosinophils # (auto) 0.04 K/uL (0-0.50); Eosinophils % (auto) 0.7 %; Hematocrit (blood only) 26.5 % (40.1-51.0); Hemoglobin 8.8 g/dl (14.0-18.0); Immature Granulocytes # (auto) 0.02 K/uL (0.00-0.02); Immature Granulocytes % (auto) 0.4 %; Lymphocytes # (auto) 0.48 K/uL (1.2-3.4); Lymphocytes % (auto) 8.5 %; Mean Corpuscular Hgb Conc 33.2 g/dL (32.0-36.0); Mean Corpuscular Volume 84.4 fL (80.0-100.0); Mean Platelet Volume 9.3 fL (9.4-12.4); Monocytes # (auto) 0.35 K/uL (0.24-0.82); Monocytes % (auto) 6.2 %; Neutrophils # (auto) 4.75 K/uL (1.4-6.5); Neutrophils % (auto) 83.8 %; Platelet Count 87 K/uL (130-400); RDW Coefficient of Variation 16.2 % (11.5-14.5); RDW Standard Deviation 49.9 fL (36.4-46.3); Red Blood Count 3.14 M/uL (4.63-6.08); White Blood Count 5.66 K/ul (4.8-10.8)
[2021-10-27 07:02] LABS: Partial Thromboplastin Ratio 1.4; Partial Thromboplastin Time 37.3 Seconds (21.0-31.0); Prothrombin Time 20.3 Seconds (9.0-12.0)
[2021-10-27 07:04] LABS: Albumin Globulin Ratio 0.8 (0.9-2); Albumin Level 2.9 gm/dl (3.4-5.0); BUN Creatinine Ratio 19.4 (10-20); Bilirubin,Total 2.4 mg/dl (0.2-1.0); Creatinine Clr Calc Pharmacy 32.3 ml/min; Est GFR (African American) 42.9 ml/min; Globulin 3.5 gm/dl (2.5-4.0); Magnesium 1.7 mg/dl (1.7-2.4); Potassium 4.1 mmol/L (3.5-5.1); Total Protein 6.4 gm/dl (6.0-8.3)
--- NOTE | 2021-10-27 07:25 | Electrocardiogram Report ---
Test Reason : Blood Pressure : / mmHG Vent. Rate : 060 BPM Atrial Rate : 061 BPM P-R Int : 000 ms QRS Dur : 116 ms QT Int : 510 ms P-R-T Axes : 000 -40 024 degrees QTc Int : 510 ms A-sensed, V-paced rhythm Abnormal ECG When compared with ECG of 26-OCT-2021 05:51, Vent. rate has decreased BY 30 BPM Confirmed by Cali Rodriguez ([id number]) on 10/27/2021 7:24:29 AM Referred By: REFERRED SELF Confirmed By:Fernando Rodriguez
[2021-10-27] MEDS ORDERED: IRON SUCROSE 200 MG in 0.9 % SODIUM CHLORIDE 100 ML IV ONE (08:45)
[2021-10-27] MEDS: FINASTERIDE 5 MG TAB PO SCH (09:42)
[2021-10-27] MEDS: MAGNESIUM OXIDE 400 MG TAB PO SCH (09:42)
[2021-10-27] MEDS: METOPROLOL SUCC 50MG EXT REL TAB PO SCH (09:42)
[2021-10-27] MEDS: CYANOCOBALAMIN (B-12) 2,500 MCG TABLET SL SCH (09:42)
[2021-10-27] MEDS: FOLIC ACID 1 MG TAB PO SCH (09:42)
[2021-10-27] MEDS: INSULIN ASPART PER UNIT SC SCH ×4 (09:44→20:27)
--- NOTE | 2021-10-27 13:06 | Hospitalist Progress Note ---
Date of Service October 27, 2021 Assessment & Plan (1) Generalized weakness: Plan: 86 yo male PMHX including deficiency, status post CABG, CAD, chronic HFpEF, paroxysmal atrial fibrillation, diabetes mellitus, status post TAVR, long-term anticoagulant use, status post pacemaker, CKD, aortic stenosis, BPH with LUTS, hypertension, hypercholesterolemia, and anemia presented for worsening fatigue, inability to participate with PT at home, and lethargy. Generalized weakness Multifactorial: Hypoglycemia, anemia, acute on chronic CHF PT/OT Symptomatic anemia Symptomatic anemia/thrombocytopenia Received 2 units of packed red blood cells in the ER for symptomatic anemia Hemoglobin 7.2 on admission, appropriate rise to 9.6, subsequent stable ~8.8 Hemoccult negative, Hemoccult all stools.Negative so far. ?MDS, peripheral smear pending - low iron, venofer x1 (10/27), will give another dose in am Anticoagulation was held for concern of GI bleed. Past concern has been raised for the potential for AVMs. Of note patient has a normal BUN, and has had negative Hemoccults so far. Intravascular panel does not show positive direct Julius, fibrinogen is not decreased. Patient is high risk to be off warfarin both due to his history of atrial fibrillation and history of aortic stenosis status post TAVR with elevated gradients and some leaflet thrombus in the past. Given this would not hold warfarin unless absolutely necessary, and at this time it is not clearly GI bleeding and may also be MDS.Recent EGD neg for bleed. Will resume and follow, follow-up for Hemoccult positive stools. If suddenly positive stools would pursue AVM eval at that time. Acute on chronic heart failure with preserved ejection fraction (HFpEF) Elevated troponin CAD s/p TAVR paroxysmal atrial fibrillation Pacemaker Seen by cardiology. Troponin down trended. Low suspicion for ACS, likely some demand with anemia. Further ischemic evaluation not recommended at this time. Lasix can be given if additional blood is required; hold home lasix for now, will likely restart in am Continue home metoprolol, amlodipine, statin, warfarin DM II (diabetes mellitus, type II), controlled hypoglycemic to 57 on admission, improved with D5 Hold and discontinue home glipizide cont. BSG checks, on SSI A1C 6.3 consider initiation of SGLT or GLP-4 on discharge or close f/u with pcp given glipizide discontinued; pt needed insulin for control in hospital CKD (chronic kidney disease) stage 3, GFR 30-59 ml/min Creatinine 1.39 upon admission, with range 1.25-1.60 Appears to be uptrending with home lasix on hold, trend and reevaluate in morning; will likely need to restart in the am Hypercholesterolemia Cont. home simvastatin Vitamin B12 deficiency (dietary) anemia Cont. supplement BPH w urinary obs/LUTS Cont. tamsulosin, changed to evening as taking in the morning may be contributing to part of his symptoms DVT ppx: warfarin FEN/GI: HH, DM2, 1.8L fluid restriction Code Status: DNR/DNI Dispo: PCU tele (2) Hypoglycemia associated with diabetes: (3) Acute on chronic heart failure with preserved ejection fraction (HFpEF): (4) Symptomatic anemia: (5) Vitamin B12 deficiency (dietary) anemia: (6) History of heart bypass surgery: (7) Coronary artery disease: (8) Chronic heart failure with preserved ejection fraction: (9) Paroxysmal atrial fibrillation: (10) S/P TAVR (transcatheter aortic valve replacement): (11) CKD (chronic kidney disease) stage 3, GFR 30-59 ml/min: (12) Elevated troponin: (13) BPH w urinary obs/LUTS: (14) Hypertension: Admission and Anticipated Discharge Date Admission Date: October 25, 2021 Supervising Physician Co-Signing Physician Notes Patient seen and examined, chart reviewed, case discussed with Adeel Juan and I agree with the assessment and plan as above except as otherwise noted Labs and images reviewed Seen at bedside. Patient reports he feels generally well. Has not had bleeding to his knowledge. No lightheadedness, dizziness, fever, chills, sweats, chest pain. Heart rate is mildly tachycardic, breathing is unlabored and lungs are clear, abdomen is nontender. Symptomatic anemia: Past concern for AVMs, patient has had normal Hemoccults so far. Warfarin resumed, due to TAVR with concern for leaflet thrombus and A. fib would not hold warfarin unless absolutely necessary. Patient with low iron, Venofer ordered. MDS evaluation with peripheral smear also pending. Direct Julius is negative, fibrinogen is not decreased. Agree with chronic medical management as above Subjective Seen at the bedside this morning.Feeling better after receiving blood yesterday. Having BMs, no visible blood. Denies lightheadedness, dizziness, chest pain, chest pressure, shortness of breath, difficulty breathing. Review of Systems Review of Systems: All systems reviewed & are unremarkable except as noted in HPI & below Physical Exam Physical Exam: General: AOx3. NAD. Cooperative.Sitting up in bedside chair comfortably. HEENT: NCAT. EOMI. Pulm: CTAB. -wheezes, -rales, -rhonchi. Symmetrical chest rise. No increase in work of breathing. No respiratory distress. Cardiac: RRR, -mrg. Radial pulses intact and symmetrical. Abdominal: Nontender, nondistended, soft. BS present. Extremities: Warm and dry. Results & Data Results & Data ([facility]) Vital Signs (Past 12 Hours) Vital Signs Temp Pulse Pulse Resp BP Pulse Ox O2 Del Method 10/27/21 09:30 Room Air 10/27/21 11:23 36.5 C 63 18 104/56 L 92 Room Air 10/27/21 08:18 36.9 C 62 18 121/69 98 Room Air 10/27/21 06:05 63 10/27/21 03:24 36.6 C 65 18 102/51 L 97 Room Air 10/27/21 02:04 62 Laboratory Results 10/27/21 10/27/21 10/27/21 Range/Units 11:16 07:32 06:34 WBC (4.8-10.8) K/ul RBC (4.63-6.08) M/uL Hgb (14.0-18.0) g/dl Hct (40.1-51.0) % MCV (80.0-100.0) fL MCH (25.0-34.0) pg MCHC (32.0-36.0) g/dL RDW Std Deviation (36.4-46.3) fL RDW Coeff of Jose A (11.5-14.5) % Plt Count (130-400) K/uL MPV (9.4-12.4) fL Immature Gran % (Auto) % Neut % (Auto) % Lymph % (Auto) % [place] % (Auto) % Eos % (Auto) % Baso % (Auto) % Neut # (Auto) (1.4-6.5) K/uL Lymph # (Auto) (1.2-3.4) K/uL [place] # (Auto) (0.24-0.82) K/uL Eos # (Auto) (0-0.50) K/uL Baso # (Auto) (0-0.2) K/uL Immature Gran # (Auto) (0.00-0.02) K/uL PT (9.0-12.0) Seconds INR (0.9-1.1) APTT (21.0-31.0) Seconds PTT Ratio Sodium (136-145) mmol/L Potassium (3.5-5.1) mmol/L Chloride (98-107) mmol/L Carbon Dioxide (21-32) mmol/L Anion Gap (3-11) BUN (6-23) mg/dl Creatinine (0.6-1.4) mg/dl Est Cr Clr Drug Dosing ml/min Est GFR ( Amer) ml/min Est GFR (Non-Af Amer) ml/min BUN/Creatinine Ratio (10-20) Glucose (70-99(Fasting)) mg/dl POC Glucose 234 H 163 H (70-99) mg/dl Osmolality 277 L (280-300) mOsm/kg Calcium (8.5-10.1) mg/dl Magnesium (1.7-2.4) mg/dl Iron (35-175) mcg/dl TIBC (250-450) mcg/dl Unsaturated IBC (155-355) mcg/dl Transferrin % Sat (20-50) % Ferritin (8-388) ng/ml Total Bilirubin (0.2-1.0) mg/dl AST (13-39) U/L ALT (7-52) U/L Alkaline Phosphatase (34-104) U/L Total Protein (6.0-8.3) gm/dl Albumin (3.4-5.0) gm/dl Globulin (2.5-4.0) gm/dl Albumin/Globulin Ratio (0.9-2) 10/27/21 10/27/21 10/27/21 Range/Units 06:31 06:31 06:31 WBC 5.66 (4.8-10.8) K/ul RBC 3.14 L (4.63-6.08) M/uL Hgb 8.8 L (14.0-18.0) g/dl Hct 26.5 L (40.1-51.0) % MCV 84.4 (80.0-100.0) fL MCH 28.0 (25.0-34.0) pg MCHC 33.2 (32.0-36.0) g/dL RDW Std Deviation 49.9 H (36.4-46.3) fL RDW Coeff of Jose A 16.2 H (11.5-14.5) % Plt Count 87 L (130-400) K/uL MPV 9.3 L (9.4-12.4) fL Immature Gran % (Auto) 0.4 % Neut % (Auto) 83.8 % Lymph % (Auto) 8.5 % [place] % (Auto) 6.2 % Eos % (Auto) 0.7 % Baso % (Auto) 0.4 % Neut # (Auto) 4.75 (1.4-6.5) K/uL Lymph # (Auto) 0.48 L (1.2-3.4) K/uL [place] # (Auto) 0.35 (0.24-0.82) K/uL Eos # (Auto) 0.04 (0-0.50) K/uL Baso # (Auto) 0.02 (0-0.2) K/uL Immature Gran # (Auto) 0.02 (0.00-0.02) K/uL PT 20.3 H (9.0-12.0) Seconds INR 2.0 H (0.9-1.1) APTT 37.3 H (21.0-31.0) Seconds PTT Ratio 1.4 Sodium 127 L (136-145) mmol/L Potassium 4.1 (3.5-5.1) mmol/L Chloride 95 L (98-107) mmol/L Carbon Dioxide 24 (21-32) mmol/L Anion Gap 8 (3-11) BUN 32 H (6-23) mg/dl Creatinine 1.65 H (0.6-1.4) mg/dl Est Cr Clr Drug Dosing 32.3 ml/min Est GFR ( Amer) 42.9 ml/min Est GFR (Non-Af Amer) 37.0 ml/min BUN/Creatinine Ratio 19.4 (10-20) Glucose 140 H (70-99(Fasting)) mg/dl POC Glucose (70-99) mg/dl Osmolality (280-300) mOsm/kg Calcium 8.0 L (8.5-10.1) mg/dl Magnesium 1.7 (1.7-2.4) mg/dl Iron (35-175) mcg/dl TIBC (250-450) mcg/dl Unsaturated IBC (155-355) mcg/dl Transferrin % Sat (20-50) % Ferritin (8-388) ng/ml Total Bilirubin 2.4 H (0.2-1.0) mg/dl AST 10 L (13-39) U/L ALT 9 (7-52) U/L Alkaline Phosphatase 79 (34-104) U/L Total Protein 6.4 (6.0-8.3) gm/dl Albumin 2.9 L (3.4-5.0) gm/dl Globulin 3.5 (2.5-4.0) gm/dl Albumin/Globulin Ratio 0.8 L (0.9-2) 10/26/21 10/26/21 10/26/21 Range/Units 20:12 16:40 06:51 WBC (4.8-10.8) K/ul RBC (4.63-6.08) M/uL Hgb (14.0-18.0) g/dl Hct (40.1-51.0) % MCV (80.0-100.0) fL MCH (25.0-34.0) pg MCHC (32.0-36.0) g/dL RDW Std Deviation (36.4-46.3) fL RDW Coeff of Jose A (11.5-14.5) % Plt Count (130-400) K/uL MPV (9.4-12.4) fL Immature Gran % (Auto) % Neut % (Auto) % Lymph % (Auto) % [place] % (Auto) % Eos % (Auto) % Baso % (Auto) % Neut # (Auto) (1.4-6.5) K/uL Lymph # (Auto) (1.2-3.4) K/uL [place] # (Auto) (0.24-0.82) K/uL Eos # (Auto) (0-0.50) K/uL Baso # (Auto) (0-0.2) K/uL Immature Gran # (Auto) (0.00-0.02) K/uL PT (9.0-12.0) Seconds INR (0.9-1.1) APTT (21.0-31.0) Seconds PTT Ratio Sodium (136-145) mmol/L Potassium (3.5-5.1) mmol/L Chloride (98-107) mmol/L Carbon Dioxide (21-32) mmol/L Anion Gap (3-11) BUN (6-23) mg/dl Creatinine (0.6-1.4) mg/dl Est Cr Clr Drug Dosing ml/min Est GFR ( Amer) ml/min Est GFR (Non-Af Amer) ml/min BUN/Creatinine Ratio (10-20) Glucose (70-99(Fasting)) mg/dl POC Glucose 230 H 230 H (70-99) mg/dl Osmolality (280-300) mOsm/kg Calcium (8.5-10.1) mg/dl Magnesium (1.7-2.4) mg/dl Iron 24 L (35-175) mcg/dl TIBC 190 L (250-450) mcg/dl Unsaturated IBC 166 (155-355) mcg/dl Transferrin % Sat 13 L (20-50) % Ferritin 475.2 H (8-388) ng/ml Total Bilirubin (0.2-1.0) mg/dl AST (13-39) U/L ALT (7-52) U/L Alkaline Phosphatase (34-104) U/L Total Protein (6.0-8.3) gm/dl Albumin (3.4-5.0) gm/dl Globulin (2.5-4.0) gm/dl Albumin/Globulin Ratio (0.9-2) Resident Activity Tracking Resident Involvement: Resident Care Provided Care Provided: Adult Hospital Medicine
--- NOTE | 2021-10-27 13:21 | Billing Data ---
Date of Service October 27, 2021 Coding Level of Care Code 68404 Subseq Hosp Care Lvl 2
[2021-10-27] MEDS: WARFARIN SOD 2.5 MG TAB PO SCH (17:27)
[2021-10-27] MEDS: TAMSULOSIN HCL 0.4 MG CAP PO SCH (20:31)
[2021-10-27] MEDS: SIMVASTATIN 20 MG TAB PO SCH (20:31)
[2021-10-28 07:04] LABS: Basophils # (auto) 0.02 K/uL (0-0.2); Basophils % (auto) 0.3 %; Eosinophils # (auto) 0.01 K/uL (0-0.50); Eosinophils % (auto) 0.1 %; Hematocrit (blood only) 27.5 % (40.1-51.0); Hemoglobin 9.2 g/dl (14.0-18.0); Immature Granulocytes # (auto) 0.03 K/uL (0.00-0.02); Immature Granulocytes % (auto) 0.4 %; Lymphocytes # (auto) 0.48 K/uL (1.2-3.4); Lymphocytes % (auto) 6.7 %; Mean Corpuscular Hemoglobin 27.7 pg (25.0-34.0); Mean Corpuscular Hgb Conc 33.5 g/dL (32.0-36.0); Mean Corpuscular Volume 82.8 fL (80.0-100.0); Mean Platelet Volume 9.6 fL (9.4-12.4); Monocytes # (auto) 0.43 K/uL (0.24-0.82); Neutrophils # (auto) 6.18 K/uL (1.4-6.5); Neutrophils % (auto) 86.5 %; Platelet Count 97 K/uL (130-400); RDW Coefficient of Variation 16.5 % (11.5-14.5); RDW Standard Deviation 49.6 fL (36.4-46.3); Red Blood Count 3.32 M/uL (4.63-6.08); White Blood Count 7.15 K/ul (4.8-10.8)
[2021-10-28 07:25] LABS: Prothrombin Time 20.7 Seconds (9.0-12.0)
[2021-10-28 07:27] LABS: Albumin Globulin Ratio 0.8 (0.9-2); BUN Creatinine Ratio 23.5 (10-20); Bilirubin,Total 2.3 mg/dl (0.2-1.0); Calcium 8.1 mg/dl (8.5-10.1); Est GFR (African American) 42.6 ml/min; Est GFR (Non-African American) 36.8 ml/min; Globulin 3.6 gm/dl (2.5-4.0); Magnesium 1.7 mg/dl (1.7-2.4); Potassium 4.1 mmol/L (3.5-5.1); Total Protein 6.6 gm/dl (6.0-8.3)
[2021-10-28] MEDS: INSULIN ASPART PER UNIT SC SCH ×4 (08:10→21:29)
[2021-10-28] MEDS: CYANOCOBALAMIN (B-12) 2,500 MCG TABLET SL SCH (08:13)
[2021-10-28] MEDS: FOLIC ACID 1 MG TAB PO SCH (08:14)
[2021-10-28] MEDS: METOPROLOL SUCC 50MG EXT REL TAB PO SCH (08:14)
[2021-10-28] MEDS: FINASTERIDE 5 MG TAB PO SCH (08:14)
[2021-10-28] MEDS: MAGNESIUM OXIDE 400 MG TAB PO SCH (08:14)
[2021-10-28] MEDS: amLODIPine BESYLATE 5 MG TAB PO SCH (08:14)
[2021-10-28] MEDS ORDERED: IRON SUCROSE 200 MG in 0.9 % SODIUM CHLORIDE 100 ML IV ONE (12:45)
--- NOTE | 2021-10-28 14:45 | Hospitalist Progress Note ---
Date of Service October 28, 2021 Assessment & Plan (1) Generalized weakness: Plan: 86 yo male PMHX including deficiency, status post CABG, CAD, chronic HFpEF, paroxysmal atrial fibrillation, diabetes mellitus, status post TAVR, long-term anticoagulant use, status post pacemaker, CKD, aortic stenosis, BPH with LUTS, hypertension, hypercholesterolemia, and anemia presented for worsening fatigue, inability to participate with PT at home, and lethargy. Generalized weakness Multifactorial: Hypoglycemia, anemia, acute on chronic CHF PT/OT Symptomatic anemia Symptomatic anemia/thrombocytopenia Received 2 units of packed red blood cells in the ER for symptomatic anemia Hemoglobin 7.2 on admission, appropriate rise to 9.6, subsequent stable ~9 Hemoccult negative, Hemoccult all stools.Negative so far. ?MDS, peripheral smear pending - low iron, venofer x2, will give another dose in am Anticoagulation was held for concern of GI bleed. Past concern has been raised for the potential for AVMs. Of note patient has a normal BUN, and has had negative Hemoccults so far. Intravascular panel does not show positive direct Julius, fibrinogen is not decreased. Patient is high risk to be off warfarin both due to his history of atrial fibrillation and history of aortic stenosis status post TAVR with elevated gradients and some leaflet thrombus in the past. Given this would not hold warfarin unless absolutely necessary, and at this time it is not clearly GI bleeding and may also be MDS.Recent EGD neg for bleed. Will resume and follow, follow-up for Hemoccult positive stools. If suddenly positive stools would pursue AVM eval at that time. Acute on chronic heart failure with preserved ejection fraction (HFpEF) Elevated troponin CAD s/p TAVR paroxysmal atrial fibrillation Pacemaker Seen by cardiology. Troponin down trended. Low suspicion for ACS, likely some demand with anemia. Further ischemic evaluation not recommended at this time. Restarted home lasix Continue home metoprolol, amlodipine, statin, warfarin - INR 2, goal 2.5-3.5, monitor DM II (diabetes mellitus, type II), controlled hypoglycemic to 57 on admission, improved with D5 Hold and discontinue home glipizide cont. BSG checks, on SSI A1C 6.3 consider initiation of SGLT or GLP-4 on discharge or close f/u with pcp given glipizide discontinued; pt needed insulin for control in hospital CKD (chronic kidney disease) stage 3, GFR 30-59 ml/min Creatinine 1.39 upon admission, with range 1.25-1.60 Restarted lasix. monitor IOs, daily weights, bmp Hypercholesterolemia Cont. home simvastatin Vitamin B12 deficiency (dietary) anemia Cont. supplement BPH w urinary obs/LUTS Cont. tamsulosin, changed to evening as taking in the morning may be contributing to part of his symptoms DVT ppx: warfarin FEN/GI: HH, DM2, 1.8L fluid restriction Code Status: DNR/DNI Dispo: PCU tele (2) Hypoglycemia associated with diabetes: (3) Acute on chronic heart failure with preserved ejection fraction (HFpEF): (4) Symptomatic anemia: (5) Vitamin B12 deficiency (dietary) anemia: (6) History of heart bypass surgery: (7) Coronary artery disease: (8) Chronic heart failure with preserved ejection fraction: (9) Paroxysmal atrial fibrillation: (10) S/P TAVR (transcatheter aortic valve replacement): (11) CKD (chronic kidney disease) stage 3, GFR 30-59 ml/min: (12) Elevated troponin: (13) BPH w urinary obs/LUTS: (14) Hypertension: Admission and Anticipated Discharge Date Admission Date: October 25, 2021 Supervising Physician Co-Signing Physician Notes Attending attestation Pt seen and examined in concert with Dr. Juan. In agreement with the documented findings as noted in the resident documentation with any exceptions or additions as noted here. Improving fatigue, engaged with treatment and PT. Nursing notes, imaging and VS reviewed. On examination, S1/S2 nl IRR. CTAB. Abd NT/ND BS+ve Anemia, iron deficiency, s/p 2U PRBC - Hgb stable - continue daily CBC and transfuse at 7. Continue AC with high risk of emboli. Deconditioning - PT/OT consultation appreciated. HFpEF in the setting of CAD, paroxysmal AF - transition to furosemide 40mg PO BID and montior I/O/weight Else see resident documentation as noted. Subjective Seen at the bedside this morning.Doing well. Having BMs, no visible blood. Denies lightheadedness, dizziness, chest pain, chest pressure, shortness of breath, difficulty breathing. Review of Systems Review of Systems: All systems reviewed & are unremarkable except as noted in HPI & below Physical Exam Physical Exam: General: AOx3. NAD. Cooperative.Sitting up in bedside chair comfortably. HEENT: NCAT. EOMI. Pulm: CTAB. -wheezes, -rales, -rhonchi. Symmetrical chest rise. No increase in work of breathing. No respiratory distress. Cardiac: RRR, -mrg. Radial pulses intact and symmetrical. Abdominal: Nontender, nondistended, soft. BS present. Extremities: Warm and dry. Results & Data Results & Data ([facility]) Vital Signs (Past 12 Hours) Vital Signs Temp Pulse Pulse Resp BP Pulse Ox O2 Del Method 10/28/21 07:30 Room Air 10/28/21 11:28 37.0 C 76 17 126/68 91 Room Air 10/28/21 07:32 36.9 C 82 18 155/65 H 97 Room Air 10/28/21 06:34 64 10/28/21 02:59 36.9 C 69 18 108/58 L 96 Room Air Laboratory Results 10/28/21 10/28/21 10/28/21 Range/Units Unknown 16:17 11:26 WBC (4.8-10.8) K/ul RBC (4.63-6.08) M/uL Hgb (14.0-18.0) g/dl Hct (40.1-51.0) % MCV (80.0-100.0) fL MCH (25.0-34.0) pg MCHC (32.0-36.0) g/dL RDW Std Deviation (36.4-46.3) fL RDW Coeff of Jose A (11.5-14.5) % Plt Count (130-400) K/uL MPV (9.4-12.4) fL Immature Gran % (Auto) % Neut % (Auto) % Lymph % (Auto) % [place] % (Auto) % Eos % (Auto) % Baso % (Auto) % Neut # (Auto) (1.4-6.5) K/uL Lymph # (Auto) (1.2-3.4) K/uL [place] # (Auto) (0.24-0.82) K/uL Eos # (Auto) (0-0.50) K/uL Baso # (Auto) (0-0.2) K/uL Immature Gran # (Auto) (0.00-0.02) K/uL PT (9.0-12.0) Seconds INR (0.9-1.1) Sodium (136-145) mmol/L Potassium (3.5-5.1) mmol/L Chloride (98-107) mmol/L Carbon Dioxide (21-32) mmol/L Anion Gap (3-11) BUN (6-23) mg/dl Creatinine (0.6-1.4) mg/dl Est Cr Clr Drug Dosing ml/min Est GFR ( Amer) ml/min Est GFR (Non-Af Amer) ml/min BUN/Creatinine Ratio (10-20) Glucose (70-99(Fasting)) mg/dl POC Glucose 202 H 194 H (70-99) mg/dl Calcium (8.5-10.1) mg/dl Magnesium (1.7-2.4) mg/dl Total Bilirubin (0.2-1.0) mg/dl AST (13-39) U/L ALT (7-52) U/L Alkaline Phosphatase (34-104) U/L Total Protein (6.0-8.3) gm/dl Albumin (3.4-5.0) gm/dl Globulin (2.5-4.0) gm/dl Albumin/Globulin Ratio (0.9-2) Stool Occult Bld Scrn Negative (Negative) 10/28/21 10/28/21 10/28/21 Range/Units 07:17 06:25 06:25 WBC (4.8-10.8) K/ul RBC (4.63-6.08) M/uL Hgb (14.0-18.0) g/dl Hct (40.1-51.0) % MCV (80.0-100.0) fL MCH (25.0-34.0) pg MCHC (32.0-36.0) g/dL RDW Std Deviation (36.4-46.3) fL RDW Coeff of Jose A (11.5-14.5) % Plt Count (130-400) K/uL MPV (9.4-12.4) fL Immature Gran % (Auto) % Neut % (Auto) % Lymph % (Auto) % [place] % (Auto) % Eos % (Auto) % Baso % (Auto) % Neut # (Auto) (1.4-6.5) K/uL Lymph # (Auto) (1.2-3.4) K/uL [place] # (Auto) (0.24-0.82) K/uL Eos # (Auto) (0-0.50) K/uL Baso # (Auto) (0-0.2) K/uL Immature Gran # (Auto) (0.00-0.02) K/uL PT 20.7 H (9.0-12.0) Seconds INR 2.0 H (0.9-1.1) Sodium 126 L (136-145) mmol/L Potassium 4.1 (3.5-5.1) mmol/L Chloride 94 L (98-107) mmol/L Carbon Dioxide 23 (21-32) mmol/L Anion Gap 9 (3-11) BUN 39 H (6-23) mg/dl Creatinine 1.66 H (0.6-1.4) mg/dl Est Cr Clr Drug Dosing 32.0 ml/min Est GFR ( Amer) 42.6 ml/min Est GFR (Non-Af Amer) 36.8 ml/min BUN/Creatinine Ratio 23.5 H (10-20) Glucose 141 H (70-99(Fasting)) mg/dl POC Glucose 160 H (70-99) mg/dl Calcium 8.1 L (8.5-10.1) mg/dl Magnesium 1.7 (1.7-2.4) mg/dl Total Bilirubin 2.3 H (0.2-1.0) mg/dl AST 13 (13-39) U/L ALT 9 (7-52) U/L Alkaline Phosphatase 80 (34-104) U/L Total Protein 6.6 (6.0-8.3) gm/dl Albumin 3.0 L (3.4-5.0) gm/dl Globulin 3.6 (2.5-4.0) gm/dl Albumin/Globulin Ratio 0.8 L (0.9-2) Stool Occult Bld Scrn (Negative) 10/28/21 10/28/21 10/27/21 Range/Units 06:25 00:12 20:09 WBC 7.15 (4.8-10.8) K/ul RBC 3.32 L (4.63-6.08) M/uL Hgb 9.2 L (14.0-18.0) g/dl Hct 27.5 L (40.1-51.0) % MCV 82.8 (80.0-100.0) fL MCH 27.7 (25.0-34.0) pg MCHC 33.5 (32.0-36.0) g/dL RDW Std Deviation 49.6 H (36.4-46.3) fL RDW Coeff of Jose A 16.5 H (11.5-14.5) % Plt Count 97 L (130-400) K/uL MPV 9.6 (9.4-12.4) fL Immature Gran % (Auto) 0.4 % Neut % (Auto) 86.5 % Lymph % (Auto) 6.7 % [place] % (Auto) 6.0 % Eos % (Auto) 0.1 % Baso % (Auto) 0.3 % Neut # (Auto) 6.18 (1.4-6.5) K/uL Lymph # (Auto) 0.48 L (1.2-3.4) K/uL [place] # (Auto) 0.43 (0.24-0.82) K/uL Eos # (Auto) 0.01 (0-0.50) K/uL Baso # (Auto) 0.02 (0-0.2) K/uL Immature Gran # (Auto) 0.03 H (0.00-0.02) K/uL PT (9.0-12.0) Seconds INR (0.9-1.1) Sodium (136-145) mmol/L Potassium (3.5-5.1) mmol/L Chloride (98-107) mmol/L Carbon Dioxide (21-32) mmol/L Anion Gap (3-11) BUN (6-23) mg/dl Creatinine (0.6-1.4) mg/dl Est Cr Clr Drug Dosing ml/min Est GFR ( Amer) ml/min Est GFR (Non-Af Amer) ml/min BUN/Creatinine Ratio (10-20) Glucose (70-99(Fasting)) mg/dl POC Glucose 152 H 183 H (70-99) mg/dl Calcium (8.5-10.1) mg/dl Magnesium (1.7-2.4) mg/dl Total Bilirubin (0.2-1.0) mg/dl AST (13-39) U/L ALT (7-52) U/L Alkaline Phosphatase (34-104) U/L Total Protein (6.0-8.3) gm/dl Albumin (3.4-5.0) gm/dl Globulin (2.5-4.0) gm/dl Albumin/Globulin Ratio (0.9-2) Stool Occult Bld Scrn (Negative) Resident Activity Tracking Resident Involvement: Resident Care Provided Care Provided: Adult [facility]
[2021-10-28] MEDS: FUROSEMIDE 40 MG TAB PO SCH (17:01)
[2021-10-28] MEDS: WARFARIN SOD 5 MG TAB PO SCH (17:01)
[2021-10-28] MEDS: SIMVASTATIN 20 MG TAB PO SCH (20:32)
[2021-10-28] MEDS: TAMSULOSIN HCL 0.4 MG CAP PO SCH (20:33)
[2021-10-29 06:30] LABS: Basophils # (auto) 0.02 K/uL (0-0.2); Basophils % (auto) 0.2 %; Eosinophils # (auto) 0.01 K/uL (0-0.50); Eosinophils % (auto) 0.1 %; Hematocrit (blood only) 25.2 % (40.1-51.0); Hemoglobin 8.3 g/dl (14.0-18.0); Immature Granulocytes # (auto) 0.06 K/uL (0.00-0.02); Immature Granulocytes % (auto) 0.7 %; Lymphocytes # (auto) 0.44 K/uL (1.2-3.4); Lymphocytes % (auto) 4.9 %; Mean Corpuscular Hemoglobin 27.7 pg (25.0-34.0); Mean Corpuscular Hgb Conc 32.9 g/dL (32.0-36.0); Mean Platelet Volume 9.3 fL (9.4-12.4); Monocytes # (auto) 0.42 K/uL (0.24-0.82); Monocytes % (auto) 4.7 %; Neutrophils # (auto) 8.03 K/uL (1.4-6.5); Neutrophils % (auto) 89.4 %; Platelet Count 90 K/uL (130-400); RDW Coefficient of Variation 16.4 % (11.5-14.5); RDW Standard Deviation 49.9 fL (36.4-46.3); White Blood Count 8.98 K/ul (4.8-10.8)
[2021-10-29 06:37] LABS: INR 2.4 (0.9-1.1)
--- NOTE | 2021-10-29 06:46 | Hospitalist Progress Note ---
Date of Service October 29, 2021 Assessment & Plan (1) Generalized weakness: Plan: 86 yo male PMHX including deficiency, status post CABG, CAD, chronic HFpEF, paroxysmal atrial fibrillation, diabetes mellitus, status post TAVR, long-term anticoagulant use, status post pacemaker, CKD, aortic stenosis, BPH with LUTS, hypertension, hypercholesterolemia, and anemia presented for worsening fatigue, inability to participate with PT at home, and lethargy. Generalized weakness Multifactorial: Hypoglycemia, anemia, acute on chronic CHF PT/OT: recommend acute rehab Symptomatic anemia Symptomatic anemia/thrombocytopenia Received 2 units of packed red blood cells in the ER for symptomatic anemia Hemoglobin 7.2 on admission, appropriate rise to 9.6, subsequent stable ~9 Hemoccult negative, Hemoccult all stools.Negative so far. ?MDS, peripheral smear pending - low iron, venofer x2, will give another dose in am Anticoagulation was held for concern of GI bleed. Past concern has been raised for the potential for AVMs. Of note patient has a normal BUN, and has had negative Hemoccults so far. Intravascular panel does not show positive direct Julius, fibrinogen is not decreased. Patient is high risk to be off warfarin both due to his history of atrial fibrillation and history of aortic stenosis status post TAVR with elevated gradients and some leaflet thrombus in the past. Given this would not hold warfarin unless absolutely necessary, and at this time it is not clearly GI bleeding and may also be MDS.Recent EGD neg for bleed. Will resume and follow, follow-up for Hemoccult positive stools. If suddenly positive stools would pursue AVM eval at that time. Acute on chronic heart failure with preserved ejection fraction (HFpEF) Elevated troponin CAD s/p TAVR paroxysmal atrial fibrillation Pacemaker Seen by cardiology. Troponin down trended. Low suspicion for ACS, likely some demand with anemia. Further ischemic evaluation not recommended at this time. Restarted home lasix Continue home metoprolol, amlodipine, statin, warfarin - INR 2.4, goal 2.5-3.5, monitor DM II (diabetes mellitus, type II), controlled hypoglycemic to 57 on admission, improved with D5 Hold and discontinue home glipizide cont. BSG checks, on SSI A1C 6.3 consider initiation of SGLT or GLP-4 on discharge or close f/u with pcp given glipizide discontinued; pt needed insulin for control in hospital CKD (chronic kidney disease) stage 3, GFR 30-59 ml/min Creatinine 1.39 upon admission, with range 1.25-1.60 Restarted lasix, after 2-3 doses, creatinine continued to rise and Na decreasing. Appears not to be fluid overloaded and perhaps constricted. Will hold lasix for now. Started low maintenance IVF. monitor IOs, daily weights, bmp consider nephro consult if no resolve Hyponatremia -baseline ~130 -ddx poor oral intake vs fluid overloaded -continues to decrease despite lasix. Lasix held for now. -mental status intact, cont. to monitor. -repeat bmp am Hypercholesterolemia Cont. home simvastatin Vitamin B12 deficiency (dietary) anemia Cont. supplement BPH w urinary obs/LUTS Cont. tamsulosin, changed to evening as taking in the morning may be contributing to part of his symptoms DVT ppx: warfarin FEN/GI: HH, DM2, 1.8L fluid restriction Code Status: DNR/DNI Dispo: PCU tele (2) Hypoglycemia associated with diabetes: (3) Acute on chronic heart failure with preserved ejection fraction (HFpEF): (4) Symptomatic anemia: (5) Vitamin B12 deficiency (dietary) anemia: (6) History of heart bypass surgery: (7) Coronary artery disease: (8) Chronic heart failure with preserved ejection fraction: (9) Paroxysmal atrial fibrillation: (10) S/P TAVR (transcatheter aortic valve replacement): (11) CKD (chronic kidney disease) stage 3, GFR 30-59 ml/min: (12) Elevated troponin: (13) BPH w urinary obs/LUTS: (14) Hypertension: Admission and Anticipated Discharge Date Admission Date: October 25, 2021 Supervising Physician Co-Signing Physician Notes Attending attestation Pt seen and examined in concert with Dr. Juan. In agreement with the documented findings as noted in the resident documentation with any exceptions or additions as noted here. Continued improvement in fatigue, resting comfortably in chair at time of examination with ongoing weakness. Nursing notes, imaging and VS reviewed. On examination, S1/S2 nl IRR. CTAB. Abd NT/ND BS+ve Anemia, iron deficiency, s/p 2U PRBC - Hgb stable - continue daily CBC and transfuse at 7. Continue AC with high risk of emboli. Deconditioning - PT/OT consultation appreciated. Hyponatremia - gradually decreasing from baseline in the 130s. IVF at low rate overnight and check in the AM as concern for overdiuresis vs. complex underlying cause. MARCO on CKDIII - holding furosemide, gentle hydration as above and recheck in AM HFpEF in the setting of CAD, paroxysmal AF - holding furosemide and monitor I/O/Weights Else see resident documentation as noted. Subjective Seen at the bedside this morning.Doing well, no changes. Having BMs, no visible blood. Denies lightheadedness, dizziness, chest pain, chest pressure, shortness of breath, difficulty breathing. Review of Systems Review of Systems: All systems reviewed & are unremarkable except as noted in HPI & below Physical Exam Physical Exam: General: AOx3. NAD. Cooperative.Sitting up in bedside chair comfortably. HEENT: NCAT. EOMI. Pulm: CTAB. -wheezes, -rales, -rhonchi. Symmetrical chest rise. No increase in work of breathing. No respiratory distress. Cardiac: RRR, -mrg. Radial pulses intact and symmetrical. Abdominal: Nontender, nondistended, soft. BS present. Extremities: Warm and dry.2+ pitting edema LE R>L (chronic) Results & Data Results & Data ([facility]) Vital Signs (Past 12 Hours) Vital Signs Temp Pulse Pulse Resp BP Pulse Ox O2 Del Method 10/28/21 23:00 63 10/29/21 03:14 37.1 C 60 16 125/62 91 Room Air 10/28/21 23:14 37 C 65 16 148/68 H 97 Room Air 10/28/21 20:20 Room Air 10/28/21 19:08 36.6 C 58 L 18 118/54 L 95 Room Air Laboratory Results 10/29/21 10/29/21 10/29/21 Range/Units 16:10 14:17 14:17 WBC 8.50 (4.8-10.8) K/ul RBC 2.91 L (4.63-6.08) M/uL Hgb 8.1 L (14.0-18.0) g/dl Hct 24.0 L (40.1-51.0) % MCV 82.5 (80.0-100.0) fL MCH 27.8 (25.0-34.0) pg MCHC 33.8 (32.0-36.0) g/dL RDW Std Deviation 49.0 H (36.4-46.3) fL RDW Coeff of Jose A 16.4 H (11.5-14.5) % Plt Count 87 L (130-400) K/uL MPV 9.6 (9.4-12.4) fL Immature Gran % (Auto) % Neut % (Auto) % Lymph % (Auto) % [place] % (Auto) % Eos % (Auto) % Baso % (Auto) % Neut # (Auto) (1.4-6.5) K/uL Lymph # (Auto) (1.2-3.4) K/uL [place] # (Auto) (0.24-0.82) K/uL Eos # (Auto) (0-0.50) K/uL Baso # (Auto) (0-0.2) K/uL Immature Gran # (Auto) (0.00-0.02) K/uL Peripher Smr Path Cons PT (9.0-12.0) Seconds INR (0.9-1.1) Sodium 124 L (136-145) mmol/L Potassium 3.9 (3.5-5.1) mmol/L Chloride 95 L (98-107) mmol/L Carbon Dioxide 22 (21-32) mmol/L Anion Gap 7 (3-11) BUN 45 H (6-23) mg/dl Creatinine 1.83 H (0.6-1.4) mg/dl Est Cr Clr Drug Dosing 28.5 ml/min Est GFR ( Amer) 37.9 ml/min Est GFR (Non-Af Amer) 32.7 ml/min BUN/Creatinine Ratio 24.6 H (10-20) Glucose 217 H (70-99(Fasting)) mg/dl POC Glucose 259 H (70-99) mg/dl Osmolality (280-300) mOsm/kg Calcium 7.8 L (8.5-10.1) mg/dl 10/29/21 10/29/21 10/29/21 Range/Units 11:13 07:11 07:06 WBC (4.8-10.8) K/ul RBC (4.63-6.08) M/uL Hgb (14.0-18.0) g/dl Hct (40.1-51.0) % MCV (80.0-100.0) fL MCH (25.0-34.0) pg MCHC (32.0-36.0) g/dL RDW Std Deviation (36.4-46.3) fL RDW Coeff of Jose A (11.5-14.5) % Plt Count (130-400) K/uL MPV (9.4-12.4) fL Immature Gran % (Auto) % Neut % (Auto) % Lymph % (Auto) % [place] % (Auto) % Eos % (Auto) % Baso % (Auto) % Neut # (Auto) (1.4-6.5) K/uL Lymph # (Auto) (1.2-3.4) K/uL [place] # (Auto) (0.24-0.82) K/uL Eos # (Auto) (0-0.50) K/uL Baso # (Auto) (0-0.2) K/uL Immature Gran # (Auto) (0.00-0.02) K/uL Peripher Smr Path Cons PT (9.0-12.0) Seconds INR (0.9-1.1) Sodium (136-145) mmol/L Potassium (3.5-5.1) mmol/L Chloride (98-107) mmol/L Carbon Dioxide (21-32) mmol/L Anion Gap (3-11) BUN (6-23) mg/dl Creatinine (0.6-1.4) mg/dl Est Cr Clr Drug Dosing ml/min Est GFR ( Amer) ml/min Est GFR (Non-Af Amer) ml/min BUN/Creatinine Ratio (10-20) Glucose (70-99(Fasting)) mg/dl POC Glucose 212 H 156 H (70-99) mg/dl Osmolality 281 (280-300) mOsm/kg Calcium (8.5-10.1) mg/dl 10/29/21 10/29/21 10/29/21 Range/Units 06:11 06:11 06:11 WBC 8.98 (4.8-10.8) K/ul RBC 3.00 L (4.63-6.08) M/uL Hgb 8.3 L (14.0-18.0) g/dl Hct 25.2 L (40.1-51.0) % MCV 84.0 (80.0-100.0) fL MCH 27.7 (25.0-34.0) pg MCHC 32.9 (32.0-36.0) g/dL RDW Std Deviation 49.9 H (36.4-46.3) fL RDW Coeff of Jose A 16.4 H (11.5-14.5) % Plt Count 90 L (130-400) K/uL MPV 9.3 L (9.4-12.4) fL Immature Gran % (Auto) 0.7 % Neut % (Auto) 89.4 % Lymph % (Auto) 4.9 % [place] % (Auto) 4.7 % Eos % (Auto) 0.1 % Baso % (Auto) 0.2 % Neut # (Auto) 8.03 H (1.4-6.5) K/uL Lymph # (Auto) 0.44 L (1.2-3.4) K/uL [place] # (Auto) 0.42 (0.24-0.82) K/uL Eos # (Auto) 0.01 (0-0.50) K/uL Baso # (Auto) 0.02 (0-0.2) K/uL Immature Gran # (Auto) 0.06 H (0.00-0.02) K/uL Peripher Smr Path Cons PT 24.0 H (9.0-12.0) Seconds INR 2.4 H (0.9-1.1) Sodium 125 L (136-145) mmol/L Potassium 4.1 (3.5-5.1) mmol/L Chloride 95 L (98-107) mmol/L Carbon Dioxide 19 L (21-32) mmol/L Anion Gap 11 (3-11) BUN 40 H (6-23) mg/dl Creatinine 1.70 H (0.6-1.4) mg/dl Est Cr Clr Drug Dosing 30.7 ml/min Est GFR ( Amer) 41.4 ml/min Est GFR (Non-Af Amer) 35.7 ml/min BUN/Creatinine Ratio 23.5 H (10-20) Glucose 130 H (70-99(Fasting)) mg/dl POC Glucose (70-99) mg/dl Osmolality (280-300) mOsm/kg Calcium 8.0 L (8.5-10.1) mg/dl 10/28/21 10/26/21 Range/Units 19:36 08:16 WBC (4.8-10.8) K/ul RBC (4.63-6.08) M/uL Hgb (14.0-18.0) g/dl Hct (40.1-51.0) % MCV (80.0-100.0) fL MCH (25.0-34.0) pg MCHC (32.0-36.0) g/dL RDW Std Deviation (36.4-46.3) fL RDW Coeff of Jose A (11.5-14.5) % Plt Count (130-400) K/uL MPV (9.4-12.4) fL Immature Gran % (Auto) % Neut % (Auto) % Lymph % (Auto) % [place] % (Auto) % Eos % (Auto) % Baso % (Auto) % Neut # (Auto) (1.4-6.5) K/uL Lymph # (Auto) (1.2-3.4) K/uL [place] # (Auto) (0.24-0.82) K/uL Eos # (Auto) (0-0.50) K/uL Baso # (Auto) (0-0.2) K/uL Immature Gran # (Auto) (0.00-0.02) K/uL Peripher Smr Path Cons PT (9.0-12.0) Seconds INR (0.9-1.1) Sodium (136-145) mmol/L Potassium (3.5-5.1) mmol/L Chloride (98-107) mmol/L Carbon Dioxide (21-32) mmol/L Anion Gap (3-11) BUN (6-23) mg/dl Creatinine (0.6-1.4) mg/dl Est Cr Clr Drug Dosing ml/min Est GFR ( Amer) ml/min Est GFR (Non-Af Amer) ml/min BUN/Creatinine Ratio (10-20) Glucose (70-99(Fasting)) mg/dl POC Glucose 171 H (70-99) mg/dl Osmolality (280-300) mOsm/kg Calcium (8.5-10.1) mg/dl Resident Activity Tracking Resident Involvement: Resident Care Provided Care Provided: [facility]
[2021-10-29 07:05] LABS: BUN Creatinine Ratio 23.5 (10-20); Creatinine Clr Calc Pharmacy 30.7 ml/min; Est GFR (African American) 41.4 ml/min; Est GFR (Non-African American) 35.7 ml/min; Potassium 4.1 mmol/L (3.5-5.1)
[2021-10-29] MEDS: FOLIC ACID 1 MG TAB PO SCH (08:35)
[2021-10-29] MEDS: INSULIN ASPART PER UNIT SC SCH ×4 (08:35→20:57)
[2021-10-29] MEDS: CYANOCOBALAMIN (B-12) 2,500 MCG TABLET SL SCH (08:36)
[2021-10-29] MEDS: amLODIPine BESYLATE 5 MG TAB PO SCH (08:37)
[2021-10-29] MEDS: FUROSEMIDE 40 MG TAB PO SCH (08:37)
[2021-10-29] MEDS: METOPROLOL SUCC 50MG EXT REL TAB PO SCH (08:38)
[2021-10-29] MEDS: MAGNESIUM OXIDE 400 MG TAB PO SCH (08:38)
[2021-10-29] MEDS: FINASTERIDE 5 MG TAB PO SCH (09:46)
[2021-10-29] MEDS ORDERED: IRON SUCROSE 200 MG in 0.9 % SODIUM CHLORIDE 100 ML IV ONE (10:00)
[2021-10-29 14:48] LABS: Hemoglobin 8.1 g/dl (14.0-18.0); Mean Corpuscular Hemoglobin 27.8 pg (25.0-34.0); Mean Corpuscular Hgb Conc 33.8 g/dL (32.0-36.0); Mean Corpuscular Volume 82.5 fL (80.0-100.0); Mean Platelet Volume 9.6 fL (9.4-12.4); Platelet Count 87 K/uL (130-400); RDW Coefficient of Variation 16.4 % (11.5-14.5); Red Blood Count 2.91 M/uL (4.63-6.08)
[2021-10-29 15:07] LABS: BUN Creatinine Ratio 24.6 (10-20); Calcium 7.8 mg/dl (8.5-10.1); Creatinine Clr Calc Pharmacy 28.5 ml/min; Est GFR (African American) 37.9 ml/min; Est GFR (Non-African American) 32.7 ml/min; Potassium 3.9 mmol/L (3.5-5.1)
[2021-10-29] MEDS ORDERED: SODIUM CHLORIDE 0.9% 1000ML 1,000 ML IV SCH (15:30)
[2021-10-29] MEDS: WARFARIN SOD 5 MG TAB PO SCH (16:39)
[2021-10-29] MEDS: TAMSULOSIN HCL 0.4 MG CAP PO SCH (20:58)
[2021-10-29] MEDS: SIMVASTATIN 20 MG TAB PO SCH (20:58)
[2021-10-30 06:48] LABS: Hematocrit (blood only) 25.3 % (40.1-51.0); Hemoglobin 8.6 g/dl (14.0-18.0)
--- NOTE | 2021-10-30 07:09 | Hospitalist Progress Note ---
Date of Service October 30, 2021 Assessment & Plan (1) Generalized weakness: Plan: 86 yo male PMHX including deficiency, status post CABG, CAD, chronic HFpEF, paroxysmal atrial fibrillation, diabetes mellitus, status post TAVR, long-term anticoagulant use, status post pacemaker, CKD, aortic stenosis, BPH with LUTS, hypertension, hypercholesterolemia, and anemia presented for worsening fatigue, inability to participate with PT at home, and lethargy. Generalized weakness Multifactorial: Hypoglycemia, anemia, acute on chronic CHF PT/OT: recommend acute rehab Acute on chronic heart failure with preserved ejection fraction (HFpEF) Elevated troponin CAD Pacemaker Seen by cardiology, following.Troponin down trended. Low suspicion for ACS, likely some demand with anemia.Further ischemic evaluation not recommended at this time. Continue home metoprolol, amlodipine, statin, warfarin - Initially appeared fluid overloaded, home lasix was restarted but Cr and Na worsened. Lasix was held, half maintenance IVF was given and labs improved however pt developed SOB/overload. Cr currently at upper end of baseline which may become his new normal. Will decrease lasix dose to 40mg daily and reevaluate stability tomorrow. - Follows with heart clinic - monitor IOs, daily weights, bmp - consider nephro consult if no resolve CKD (chronic kidney disease) stage 3, GFR 30-59 ml/min Creatinine 1.39 upon admission, with range 1.25-1.60 As above Hyponatremia -baseline ~130; 127 today -ddx poor oral intake vs fluid overloaded vs fluid constriction -improved with IVF however, kidneys not allowing further fluids -tx as above for now -mental status intact, cont. to monitor. -repeat bmp am Symptomatic anemia Symptomatic anemia/thrombocytopenia Received 2 units of packed red blood cells in the ER for symptomatic anemia Hemoglobin 7.2 on admission, appropriate rise to 9.6, subsequent stable ~9 Hemoccult negative, Hemoccult all stools.Negative so far. peripheral smear neg for MDS - low iron, venofer x3, will give another dose in am Anticoagulation was held for concern of GI bleed. Past concern has been raised for the potential for AVMs. Of note patient has a normal BUN, and has had negative Hemoccults so far. Intravascular panel does not show positive direct Julius, fibrinogen is not decreased. Patient is high risk to be off warfarin both due to his history of atrial fibrillation and history of aortic stenosis status post TAVR with elevated gradients and some leaflet thrombus in the past. Given this would not hold warfarin unless absolutely necessary, and at this time it is not clearly GI bleeding.Recent EGD neg for bleed. s/p TAVR paroxysmal atrial fibrillation - on warfarin, metoprolol - INR 2.5, goal 2.5-3.5, monitor DM II (diabetes mellitus, type II), controlled hypoglycemic to 57 on admission, improved with D5 Hold and discontinue home glipizide cont. BSG checks, on SSI A1C 6.3 consider initiation of SGLT or GLP-4 on discharge or close f/u with pcp given glipizide discontinued; pt needed insulin for control in hospital Hypercholesterolemia Cont. home simvastatin Vitamin B12 deficiency (dietary) anemia Cont. supplement BPH w urinary obs/LUTS Cont. tamsulosin, changed to evening as taking in the morning may be contributing to part of his symptoms DVT ppx: warfarin FEN/GI: HH, DM2, 1.8L fluid restriction Code Status: DNR/DNI Dispo: PCU tele (2) Hypoglycemia associated with diabetes: (3) Acute on chronic heart failure with preserved ejection fraction (HFpEF): (4) Symptomatic anemia: (5) Vitamin B12 deficiency (dietary) anemia: (6) History of heart bypass surgery: (7) Coronary artery disease: (8) Chronic heart failure with preserved ejection fraction: (9) Paroxysmal atrial fibrillation: (10) S/P TAVR (transcatheter aortic valve replacement): (11) CKD (chronic kidney disease) stage 3, GFR 30-59 ml/min: (12) Elevated troponin: (13) BPH w urinary obs/LUTS: (14) Hypertension: Admission and Anticipated Discharge Date Admission Date: October 25, 2021 Supervising Physician Co-Signing Physician Notes Attending attestation Pt seen and examined in concert with Dr. Juan. In agreement with the documented findings as noted in the resident documentation with any exceptions or additions as noted here. Resting in chair at bedside reporting no recurrence of episodic dyspnea overnight. Son at bedside reports h/o similar episodes outpatient with concern for VINCE and outpatient sleep evaluation pending. Son with other concerns re: senior care ability of patient to care for self, spouse with similar issues. Nursing notes, imaging and VS reviewed. On examination, S1/S2 nl IRR. CTAB. Abd NT/ND BS+ve. Improved 2+ pitting edema of the b/l LE HFpEF in the setting of CAD, paroxysmal AF - resume furosemide as above and monitor I/O/Weights MARCO on CKDIII - holding furosemide, gentle hydration as above and recheck in AM Hyponatremia - improvement in hydration overnight, so likely intravascular hypovolemic hyponatremia. Cautious furosemide as noted Deconditioning - PT/OT consultation appreciated. Anemia, iron deficiency, s/p 2U PRBC - Hgb stable - continue daily CBC and transfuse at 7. Continue AC with high risk of emboli. Else see resident documentation as noted. Subjective Seen at the bedside this morning. Overnight patient developed mild SOB on low IVF, fluids were stopped; sob stopped shortly after. Otherwise doing well this morning. Denies lightheadedness, dizziness, chest pain, chest pressure, shortness of breath, difficulty breathing. Review of Systems Review of Systems: All systems reviewed & are unremarkable except as noted in HPI & below Physical Exam Physical Exam: General: AOx3. NAD. Cooperative.Sitting up in bedside chair comfortably. HEENT: NCAT. EOMI. Pulm: Diminished lung sounds R>L. -wheezes, -rales, -rhonchi. Symmetrical chest rise. No increase in work of breathing. No respiratory distress. Cardiac: RRR, -mrg. Radial pulses intact and symmetrical. Abdominal: Nontender, nondistended, soft. BS present. Extremities: Warm and dry.2+ pitting edema LE R>L (chronic) Results & Data Results & Data ([facility]) Vital Signs (Past 12 Hours) Vital Signs Temp Pulse Pulse Resp BP Pulse Ox O2 Del Method 10/29/21 22:14 61 10/30/21 03:54 36.4 C L 61 18 125/61 94 Room Air 10/29/21 20:00 Room Air 10/29/21 23:30 36.5 C 68 18 149/68 H 97 Room Air 10/29/21 19:36 36.7 C 60 18 111/52 L 95 Room Air Laboratory Results 10/30/21 10/30/21 10/30/21 Range/Units 16:04 11:10 07:25 Hgb (14.0-18.0) g/dl Hct (40.1-51.0) % PT (9.0-12.0) Seconds INR (0.9-1.1) Sodium (136-145) mmol/L Potassium (3.5-5.1) mmol/L Chloride (98-107) mmol/L Carbon Dioxide (21-32) mmol/L Anion Gap (3-11) BUN (6-23) mg/dl Creatinine (0.6-1.4) mg/dl Est Cr Clr Drug Dosing ml/min Est GFR ( Amer) ml/min Est GFR (Non-Af Amer) ml/min BUN/Creatinine Ratio (10-20) Glucose (70-99(Fasting)) mg/dl POC Glucose 201 H 234 H 175 H (70-99) mg/dl Calcium (8.5-10.1) mg/dl Total Bilirubin (0.2-1.0) mg/dl AST (13-39) U/L ALT (7-52) U/L Alkaline Phosphatase (34-104) U/L Total Protein (6.0-8.3) gm/dl Albumin (3.4-5.0) gm/dl Globulin (2.5-4.0) gm/dl Albumin/Globulin Ratio (0.9-2) Urine Osmolality (500-800) mOsm/kg 10/30/21 10/30/21 10/30/21 Range/Units 06:26 06:26 06:26 Hgb 8.6 L (14.0-18.0) g/dl Hct 25.3 L (40.1-51.0) % PT 25.1 H (9.0-12.0) Seconds INR 2.5 H (0.9-1.1) Sodium 126 L (136-145) mmol/L Potassium 3.9 (3.5-5.1) mmol/L Chloride 96 L (98-107) mmol/L Carbon Dioxide 22 (21-32) mmol/L Anion Gap 8 (3-11) BUN 43 H (6-23) mg/dl Creatinine 1.60 H (0.6-1.4) mg/dl Est Cr Clr Drug Dosing 32.7 ml/min Est GFR ( Amer) 44.6 ml/min Est GFR (Non-Af Amer) 38.4 ml/min BUN/Creatinine Ratio 26.9 H (10-20) Glucose 145 H (70-99(Fasting)) mg/dl POC Glucose (70-99) mg/dl Calcium 7.9 L (8.5-10.1) mg/dl Total Bilirubin 2.0 H (0.2-1.0) mg/dl AST 12 L (13-39) U/L ALT 11 (7-52) U/L Alkaline Phosphatase 79 (34-104) U/L Total Protein 6.3 (6.0-8.3) gm/dl Albumin 2.8 L (3.4-5.0) gm/dl Globulin 3.5 (2.5-4.0) gm/dl Albumin/Globulin Ratio 0.8 L (0.9-2) Urine Osmolality (500-800) mOsm/kg 10/29/21 10/29/21 Range/Units 20:23 15:00 Hgb (14.0-18.0) g/dl Hct (40.1-51.0) % PT (9.0-12.0) Seconds INR (0.9-1.1) Sodium (136-145) mmol/L Potassium (3.5-5.1) mmol/L Chloride (98-107) mmol/L Carbon Dioxide (21-32) mmol/L Anion Gap (3-11) BUN (6-23) mg/dl Creatinine (0.6-1.4) mg/dl Est Cr Clr Drug Dosing ml/min Est GFR ( Amer) ml/min Est GFR (Non-Af Amer) ml/min BUN/Creatinine Ratio (10-20) Glucose (70-99(Fasting)) mg/dl POC Glucose 198 H (70-99) mg/dl Calcium (8.5-10.1) mg/dl Total Bilirubin (0.2-1.0) mg/dl AST (13-39) U/L ALT (7-52) U/L Alkaline Phosphatase (34-104) U/L Total Protein (6.0-8.3) gm/dl Albumin (3.4-5.0) gm/dl Globulin (2.5-4.0) gm/dl Albumin/Globulin Ratio (0.9-2) Urine Osmolality 398 L (500-800) mOsm/kg Resident Activity Tracking Resident Involvement: Resident Care Provided Care Provided: [facility]
[2021-10-30 07:19] LABS: Albumin Globulin Ratio 0.8 (0.9-2); Albumin Level 2.8 gm/dl (3.4-5.0); BUN Creatinine Ratio 26.9 (10-20); Calcium 7.9 mg/dl (8.5-10.1); Creatinine Clr Calc Pharmacy 32.7 ml/min; Est GFR (African American) 44.6 ml/min; Est GFR (Non-African American) 38.4 ml/min; Globulin 3.5 gm/dl (2.5-4.0); Potassium 3.9 mmol/L (3.5-5.1); Total Protein 6.3 gm/dl (6.0-8.3)
[2021-10-30 07:34] LABS: INR 2.5 (0.9-1.1); Prothrombin Time 25.1 Seconds (9.0-12.0)
[2021-10-30] MEDS: amLODIPine BESYLATE 5 MG TAB PO SCH (08:48)
[2021-10-30] MEDS: FOLIC ACID 1 MG TAB PO SCH (08:49)
[2021-10-30] MEDS: METOPROLOL SUCC 50MG EXT REL TAB PO SCH (08:49)
[2021-10-30] MEDS: CYANOCOBALAMIN (B-12) 2,500 MCG TABLET SL SCH (08:49)
[2021-10-30] MEDS: FINASTERIDE 5 MG TAB PO SCH (08:49)
[2021-10-30] MEDS: MAGNESIUM OXIDE 400 MG TAB PO SCH (08:49)
[2021-10-30] MEDS: INSULIN ASPART PER UNIT SC SCH ×4 (08:53→20:03)
--- NOTE | 2021-10-30 09:54 | Cardiology Progress Note ---
Date of Service October 30, 2021 Assessment & Plan (1) Coronary artery disease: (2) Chronic heart failure with preserved ejection fraction: (3) Paroxysmal atrial fibrillation: (4) S/P TAVR (transcatheter aortic valve replacement): (5) Pacemaker: (6) CHB (complete heart block): (7) Weakness: Plan 1. Weakness: Seem to be improving. 2. Elevated troponin: Trending downward. No symptoms of chest pain. 3. Coronary disease: Status post bypass surgery. No current symptoms s uggestive of coronary insufficiency or ischemia. I think he be continued on his outpatient medical regimen which contains metoprolol succinate, amlodipine, warfarin and simvastatin. 4. Complete heart block: Normally functioning dual-chamber permanent pacemaker. 5. Atrial fibrillation: No identified arrhythmias. That did not interrogate his device, but he presented in sinus rhythm and has been maintaining sinus rhythm. 6. Aortic stenosis: Status post TAVR. 7. Heart failure with preserved ejection fraction: While he did report some difficulty with breathing last evening, his lung examination is fairly benign today. He is not requiring supplemental oxygen at this time did not report dyspnea. He was administered some fluids yesterday and attempt to improve his hyponatremia. My does have significant lower extremity edema, this is chronic. Lung examination not suggest significant pulmonary vascular congestion. I think resuming his usual diuretic regimen would be satisfactory. Once his kidney function stabilizes we could consider initiation of Jardiance or Farxiga Admission and Anticipated Discharge Date Admission Date: October 25, 2021 Subjective This morning patient claimed he feeling okay. He reported feeling tired. Last 90 stated did have an episode of breathing difficulty. He was resting at the time. He does not describe this as overt orthopnea. He required some supplemental oxygen briefly, but this morning was not wearing any oxygen. He is not reporting breathing difficulty currently. No symptoms of chest pain. He was ambulatory yesterday and continues to have an element of weakness. He did not report dizziness or lightheadedness. Continue lower extremity edema. Review of Systems Review of Systems: Per HPI Physical Exam Physical Exam: The patient is alert and oriented. Mood and affect appeared normal. He answered all questions appropriately. HEENT: Pupils are equal and reactive to light and accommodation. Extraocular movements are intact. The sclerae are anicteric. Neuro: Cranial nerves intact Lungs: Clear to auscultation bilaterally with perhaps some slightly reduced breath sounds at the left base. He has good air movement without use of accessory muscles. No rales wheezes or rhonchi. Cardiac: Heart demonstrates a regular rate and rhythm. Normal S1 and S2. Crescendo systolic murmur. Pulses: The patient has palpable radial pulses bilaterally that are equal in intensity Extremities: There was no evidence of hypoperfusion. There is no cyanosis or clubbing. Mild lower extremity edema involving the left leg with trophic changes and lymphedema on the right leg. Skin: I did not appreciate any rashes on examination today. Results & Data ([facility]) Vital Signs (Past 12 Hours) Vital Signs Temp Pulse Pulse Resp BP Pulse Ox O2 Del Method 10/30/21 07:58 36.8 C 63 18 123/63 93 Room Air 10/29/21 22:14 61 10/30/21 03:54 36.4 C L 61 18 125/61 94 Room Air 10/29/21 23:30 36.5 C 68 18 149/68 H 97 Room Air Laboratory Results Abnormal Lab Results 10/26/21 10/29/21 10/29/21 08:16 11:13 14:17 WBC RBC Hgb Hct MCV MCH MCHC RDW Std Deviation RDW Coeff of Jose A Plt Count MPV Peripher Smr Path Cons PT INR Sodium 124 L Potassium 3.9 Chloride 95 L Carbon Dioxide 22 Anion Gap 7 BUN 45 H Creatinine 1.83 H Est Cr Clr Drug Dosing 28.5 Est GFR ( Amer) 37.9 Est GFR (Non-Af Amer) 32.7 BUN/Creatinine Ratio 24.6 H Glucose 217 H POC Glucose 212 H Calcium 7.8 L Total Bilirubin AST ALT Alkaline Phosphatase Total Protein Albumin Globulin Albumin/Globulin Ratio Urine Osmolality 10/29/21 10/29/21 10/29/21 14:17 15:00 16:10 WBC 8.50 RBC 2.91 L Hgb 8.1 L Hct 24.0 L MCV 82.5 MCH 27.8 MCHC 33.8 RDW Std Deviation 49.0 H RDW Coeff of Jose A 16.4 H Plt Count 87 L MPV 9.6 Peripher Smr Path Cons PT INR Sodium Potassium Chloride Carbon Dioxide Anion Gap BUN Creatinine Est Cr Clr Drug Dosing Est GFR ( Amer) Est GFR (Non-Af Amer) BUN/Creatinine Ratio Glucose POC Glucose 259 H Calcium Total Bilirubin AST ALT Alkaline Phosphatase Total Protein Albumin Globulin Albumin/Globulin Ratio Urine Osmolality 398 L 10/29/21 10/30/21 10/30/21 20:23 06:26 06:26 WBC RBC Hgb 8.6 L Hct 25.3 L MCV MCH MCHC RDW Std Deviation RDW Coeff of Jose A Plt Count MPV Peripher Smr Path Cons PT 25.1 H INR 2.5 H Sodium Potassium Chloride Carbon Dioxide Anion Gap BUN Creatinine Est Cr Clr Drug Dosing Est GFR ( Amer) Est GFR (Non-Af Amer) BUN/Creatinine Ratio Glucose POC Glucose 198 H Calcium Total Bilirubin AST ALT Alkaline Phosphatase Total Protein Albumin Globulin Albumin/Globulin Ratio Urine Osmolality 10/30/21 10/30/21 06:26 07:25 WBC RBC Hgb Hct MCV MCH MCHC RDW Std Deviation RDW Coeff of Jose A Plt Count MPV Peripher Smr Path Cons PT INR Sodium 126 L Potassium 3.9 Chloride 96 L Carbon Dioxide 22 Anion Gap 8 BUN 43 H Creatinine 1.60 H Est Cr Clr Drug Dosing 32.7 Est GFR ( Amer) 44.6 Est GFR (Non-Af Amer) 38.4 BUN/Creatinine Ratio 26.9 H Glucose 145 H POC Glucose 175 H Calcium 7.9 L Total Bilirubin 2.0 H AST 12 L ALT 11 Alkaline Phosphatase 79 Total Protein 6.3 Albumin 2.8 L Globulin 3.5 Albumin/Globulin Ratio 0.8 L Urine Osmolality Diagnostic Findings CT of the head and neck did not demonstrate any acute process. Chest x-ray did not demonstrate any acute findings. 1. Cardiac catheterization 01/21/2021: CLEARY to LAD patent. SVG to OM patent. Mid LAD 100%. Co dominant system. 2. TAVR 04/23/21 at [facility]: 29 mm Ayers Eunice. 3. Echo 08/27/2021: Normal LV systolic function. EF 65%. Normal wall motion. Mild to moderate concentric LVH. biatrial dilation. TAVR with elevated transvalvular velocity and gradient, with leaflets reported as opening well on visual inspection. Moderate mitral stenosis (mean grad 9). Mild to moderate MR. Mild to moderate TR. PASP 46. ECG Additional Comments: EKG obtained the time admission was sinus rhythm with paced QRS PG Care Time/CCT Total # of Minutes Spent Total Time Spent with Patient: Total time spent is greater than 50% in coordination of care (as documented) at patient's floor/unit and/or counseling patient: Coding Level of Care Code 69573 Subseq Hosp Care Lvl 2 Diagnoses Coronary artery disease I25.10 Chronic heart failure with preserved ejection fraction I50.32 Paroxysmal atrial fibrillation I48.0 S/P TAVR (transcatheter aortic valve replacement) Z95.2 Pacemaker Z95.0 CHB (complete heart block) I44.2 Weakness R53.1
[2021-10-30] MEDS ORDERED: IRON SUCROSE 200 MG in 0.9 % SODIUM CHLORIDE 100 ML IV ONE (10:00)
--- NOTE | 2021-10-30 10:51 | XRay Report ---
XR chest 2V PA/lateral HISTORY: 86 years-old Male dyspnea acute shortness of breath COMPARISON: Chest radiographs 10/21/2021 TECHNIQUE: PA and lateral views of the chest FINDINGS: The cardiac silhouette is enlarged. Aortic valvular endograft. Unchanged mediastinal contours with ca lcifications of the thoracic aorta. Prior median sternotomy with left subclavian pacer. The right jamila g apex is partially obscured by the patient's chin. No pneumothorax. Small pleural effusions with mil d right greater left bibasilar densities. Degenerative changes of the shoulders and spine. IMPRESSION: 1. Cardiomegaly without overt pulmonary edema. 2. Small pleural effusions with mild bibasilar atelectasis. ACT 112: Negative or not required by law. The above report was generated using voice recognition software. It may contain grammatical, syntax o r spelling errors. Electronically signed by: Rafael Jones M.D. 10/30/2021 10:50 AM
[2021-10-30] MEDS ORDERED: FUROSEMIDE 40 MG TAB PO ONE (11:47)
[2021-10-30] MEDS: WARFARIN SOD 2.5 MG TAB PO SCH (17:40)
[2021-10-30] MEDS: TAMSULOSIN HCL 0.4 MG CAP PO SCH (20:03)
[2021-10-30] MEDS: SIMVASTATIN 20 MG TAB PO SCH (20:03)
[2021-10-31 06:54] LABS: Hematocrit (blood only) 24.8 % (40.1-51.0); Hemoglobin 8.2 g/dl (14.0-18.0)
--- NOTE | 2021-10-31 06:54 | Hospitalist Progress Note ---
Date of Service October 31, 2021 Assessment & Plan (1) Generalized weakness: Plan: 86 yo male PMHX including deficiency, status post CABG, CAD, chronic HFpEF, paroxysmal atrial fibrillation, diabetes mellitus, status post TAVR, long-term anticoagulant use, status post pacemaker, CKD, aortic stenosis, BPH with LUTS, hypertension, hypercholesterolemia, and anemia presented for worsening fatigue, inability to participate with PT at home, and lethargy. Generalized weakness Multifactorial: Hypoglycemia, anemia, acute on chronic CHF PT/OT: recommend acute rehab, pending placement Acute on chronic heart failure with preserved ejection fraction (HFpEF) Elevated troponin CAD Pacemaker Seen by cardiology, following.Troponin down trended. Low suspicion for ACS, likely some demand with anemia.Further ischemic evaluation not recommended at this time. Continue home metoprolol, amlodipine, statin, warfarin - Initially appeared fluid overloaded, home lasix was restarted but Cr and Na worsened. Lasix was held, half maintenance IVF was given and labs improved however pt developed SOB/overload. Cr currently at upper end of baseline which may become his new normal. Decreased lasix dose to 40mg daily (10/31). Cr and Na stable. Will likely cont. this dose on discharge. - Follows with heart clinic - monitor IOs, daily weights, bmp - consider nephro consult if worsens CKD (chronic kidney disease) stage 3, GFR 30-59 ml/min Creatinine 1.39 upon admission, with range 1.25-1.60 As above Hyponatremia -baseline ~130; 126 today, stable -ddx poor oral intake vs fluid overloaded vs fluid constriction -improved with IVF however, kidneys not allowing further fluids -tx as above for now -mental status intact, cont. to monitor. -repeat bmp am Symptomatic anemia Symptomatic anemia/thrombocytopenia Received 2 units of packed red blood cells in the ER for symptomatic anemia Hemoglobin 7.2 on admission, appropriate rise to 9.6, subsequent stable ~9 Hemoccult negative, Hemoccult all stools.Negative so far. peripheral smear neg for MDS - low iron, venofer x3, will give another dose in am Anticoagulation was held for concern of GI bleed. Past concern has been raised for the potential for AVMs. Of note patient has a normal BUN, and has had negative Hemoccults so far. Intravascular panel does not show positive direct Julius, fibrinogen is not decreased. Patient is high risk to be off warfarin both due to his history of atrial fibrillation and history of aortic stenosis status post TAVR with elevated gradients and some leaflet thrombus in the past. Given this would not hold warfarin unless absolutely necessary, and at this time it is not clearly GI bleeding.Recent EGD neg for bleed. - Would not recommend colonoscopy for now given low concern for GI bleed. s/p TAVR paroxysmal atrial fibrillation - on warfarin, metoprolol - INR 2.3, goal 2.5-3.5, monitor DM II (diabetes mellitus, type II), controlled hypoglycemic to 57 on admission, improved with D5 Hold and discontinue home glipizide cont. BSG checks, on SSI A1C 6.3 consider initiation of SGLT or GLP-4 on discharge or close f/u with pcp given glipizide discontinued; pt needed insulin for control in hospital Hypercholesterolemia Cont. home simvastatin Vitamin B12 deficiency (dietary) anemia Cont. supplement BPH w urinary obs/LUTS Cont. tamsulosin, changed to evening as taking in the morning may be contributing to part of his symptoms DVT ppx: warfarin FEN/GI: HH, DM2, 1.8L fluid restriction Code Status: DNR/DNI Dispo: PCU tele (2) Hypoglycemia associated with diabetes: (3) Acute on chronic heart failure with preserved ejection fraction (HFpEF): (4) Symptomatic anemia: (5) Vitamin B12 deficiency (dietary) anemia: (6) History of heart bypass surgery: (7) Coronary artery disease: (8) Chronic heart failure with preserved ejection fraction: (9) Paroxysmal atrial fibrillation: (10) S/P TAVR (transcatheter aortic valve replacement): (11) CKD (chronic kidney disease) stage 3, GFR 30-59 ml/min: (12) Elevated troponin: (13) BPH w urinary obs/LUTS: (14) Hypertension: Admission and Anticipated Discharge Date Admission Date: October 25, 2021 Supervising Physician Co-Signing Physician Notes Attending attestation Pt seen and examined in concert with Dr. Juan. In agreement with the documented findings as noted in the resident documentation with any exceptions or additions as noted here. Resting in chair at bedside - denies recurrence of episodic dyspnea overnight. Previously, son reports h/o similar episodes outpatient with concern for VINCE and outpatient sleep evaluation pending. Nursing notes, imaging and VS reviewed. On examination, S1/S2 nl IRR. CTAB. Abd NT/ND BS+ve. Continued improvement 2+ pitting edema of the b/l LE HFpEF in the setting of CAD, paroxysmal AF - continue furosemide as above and monitor I/O/Weights. Consider increase of medication if able with Cr. CKDIII - stabilized to high baseline Cr. Close monitor with adjustment of furosemide Hyponatremia - stabilized following IVF bolus. Continue to monitor while adjusting furosemide. Deconditioning - PT/OT consult - pending placement with case management Anemia, iron deficiency, s/p 2U PRBC - Hgb stable - continue daily CBC and tra nsfuse at 7. Continue AC with high risk of emboli. s/p venofer, last dose in AM Else see resident documentation as noted. Subjective Seen at the bedside this morning. Doing well this morning. Difficulty putting R shoe on due to pedal edema. Denies lightheadedness, dizziness, chest pain, chest pressure, shortness of breath, difficulty breathing. Review of Systems Review of Systems: All systems reviewed & are unremarkable except as noted in HPI & below Physical Exam Physical Exam: General: AOx3. NAD. Cooperative.Sitting up in bedside chair comfortably. HEENT: NCAT. EOMI. Pulm: Diminished lung sounds R>L. -wheezes, -rales, -rhonchi. Symmetrical chest rise. No increase in work of breathing. No respiratory distress. Cardiac: RRR, -mrg. Radial pulses intact and symmetrical. Abdominal: Nontender, nondistended, soft. BS present. Extremities: Warm and dry.2+ pitting edema LE R>L (chronic) Results & Data Results & Data ([facility]) Vital Signs (Past 12 Hours) Vital Signs Temp Pulse Pulse Resp BP Pulse Ox O2 Del Method 10/31/21 03:06 36.4 C L 59 L 16 129/63 95 Room Air 10/30/21 22:18 61 10/30/21 23:52 36.4 C L 62 16 120/56 L 94 Room Air 10/30/21 23:15 Room Air 10/30/21 20:13 Room Air 10/30/21 19:27 36.6 C 67 16 120/72 95 Room Air Laboratory Results 10/31/21 10/31/21 10/31/21 Range/Units 16:26 11:00 07:43 Hgb (14.0-18.0) g/dl Hct (40.1-51.0) % PT (9.0-12.0) Seconds INR (0.9-1.1) Sodium (136-145) mmol/L Potassium (3.5-5.1) mmol/L Chloride (98-107) mmol/L Carbon Dioxide (21-32) mmol/L Anion Gap (3-11) BUN (6-23) mg/dl Creatinine (0.6-1.4) mg/dl Est Cr Clr Drug Dosing ml/min Est GFR ( Amer) ml/min Est GFR (Non-Af Amer) ml/min BUN/Creatinine Ratio (10-20) Glucose (70-99(Fasting)) mg/dl POC Glucose 238 H 297 H 184 H (70-99) mg/dl Calcium (8.5-10.1) mg/dl Total Bilirubin (0.2-1.0) mg/dl AST (13-39) U/L ALT (7-52) U/L Alkaline Phosphatase (34-104) U/L Total Protein (6.0-8.3) gm/dl Albumin (3.4-5.0) gm/dl Globulin (2.5-4.0) gm/dl Albumin/Globulin Ratio (0.9-2) 10/31/21 10/31/21 10/31/21 Range/Units 06:38 06:38 06:38 Hgb 8.2 L (14.0-18.0) g/dl Hct 24.8 L (40.1-51.0) % PT 23.4 H (9.0-12.0) Seconds INR 2.3 H (0.9-1.1) Sodium 126 L (136-145) mmol/L Potassium 4.1 (3.5-5.1) mmol/L Chloride 97 L (98-107) mmol/L Carbon Dioxide 23 (21-32) mmol/L Anion Gap 6 (3-11) BUN 44 H (6-23) mg/dl Creatinine 1.57 H (0.6-1.4) mg/dl Est Cr Clr Drug Dosing 33.2 ml/min Est GFR ( Amer) 45.6 ml/min Est GFR (Non-Af Amer) 39.3 ml/min BUN/Creatinine Ratio 28.0 H (10-20) Glucose 153 H (70-99(Fasting)) mg/dl POC Glucose (70-99) mg/dl Calcium 7.8 L (8.5-10.1) mg/dl Total Bilirubin 1.9 H (0.2-1.0) mg/dl AST 12 L (13-39) U/L ALT 13 (7-52) U/L Alkaline Phosphatase 79 (34-104) U/L Total Protein 6.3 (6.0-8.3) gm/dl Albumin 2.8 L (3.4-5.0) gm/dl Globulin 3.5 (2.5-4.0) gm/dl Albumin/Globulin Ratio 0.8 L (0.9-2) 10/30/21 Range/Units 19:59 Hgb (14.0-18.0) g/dl Hct (40.1-51.0) % PT (9.0-12.0) Seconds INR (0.9-1.1) Sodium (136-145) mmol/L Potassium (3.5-5.1) mmol/L Chloride (98-107) mmol/L Carbon Dioxide (21-32) mmol/L Anion Gap (3-11) BUN (6-23) mg/dl Creatinine (0.6-1.4) mg/dl Est Cr Clr Drug Dosing ml/min Est GFR ( Amer) ml/min Est GFR (Non-Af Amer) ml/min BUN/Creatinine Ratio (10-20) Glucose (70-99(Fasting)) mg/dl POC Glucose 215 H (70-99) mg/dl Calcium (8.5-10.1) mg/dl Total Bilirubin (0.2-1.0) mg/dl AST (13-39) U/L ALT (7-52) U/L Alkaline Phosphatase (34-104) U/L Total Protein (6.0-8.3) gm/dl Albumin (3.4-5.0) gm/dl Globulin (2.5-4.0) gm/dl Albumin/Globulin Ratio (0.9-2) Resident Activity Tracking Resident Involvement: Resident Care Provided Care Provided: [facility]
[2021-10-31 07:26] LABS: INR 2.3 (0.9-1.1); Prothrombin Time 23.4 Seconds (9.0-12.0)
[2021-10-31 08:04] LABS: Albumin Globulin Ratio 0.8 (0.9-2); Albumin Level 2.8 gm/dl (3.4-5.0); Bilirubin,Total 1.9 mg/dl (0.2-1.0); Calcium 7.8 mg/dl (8.5-10.1); Creatinine Clr Calc Pharmacy 33.2 ml/min; Est GFR (African American) 45.6 ml/min; Est GFR (Non-African American) 39.3 ml/min; Globulin 3.5 gm/dl (2.5-4.0); Potassium 4.1 mmol/L (3.5-5.1); Total Protein 6.3 gm/dl (6.0-8.3)
[2021-10-31] MEDS: FINASTERIDE 5 MG TAB PO SCH (09:29)
[2021-10-31] MEDS: CYANOCOBALAMIN (B-12) 2,500 MCG TABLET SL SCH (09:29)
[2021-10-31] MEDS: METOPROLOL SUCC 50MG EXT REL TAB PO SCH (09:29)
[2021-10-31] MEDS: amLODIPine BESYLATE 5 MG TAB PO SCH (09:30)
[2021-10-31] MEDS: FOLIC ACID 1 MG TAB PO SCH (09:30)
[2021-10-31] MEDS: MAGNESIUM OXIDE 400 MG TAB PO SCH (09:30)
[2021-10-31] MEDS: INSULIN ASPART PER UNIT SC SCH ×4 (09:39→20:35)
[2021-10-31] MEDS ORDERED: IRON SUCROSE 200 MG in 0.9 % SODIUM CHLORIDE 100 ML IV ONE (10:00)
--- NOTE | 2021-10-31 12:33 | Cardiology Progress Note ---
Date of Service October 31, 2021 Assessment & Plan (1) Coronary artery disease: (2) Chronic heart failure with preserved ejection fraction: (3) Paroxysmal atrial fibrillation: (4) S/P TAVR (transcatheter aortic valve replacement): (5) Pacemaker: (6) CHB (complete heart block): (7) Weakness: Plan 1. Weakness: improved. 2. Elevated troponin: No additional workup. 3. Coronary disease: Status post bypass surgery. No current symptoms suggestive of coronary insufficiency or ischemia. Continue metoprolol succinate, amlodipine, warfarin and simvastatin. 4. Complete heart block: Normally functioning dual-chamber permanent pacemaker. 5. Atrial fibrillation: No identified arrhythmias. on warfarin. 6. Aortic stenosis: Status post TAVR. Persistently elevated transvalvular velocities. I do not believe any of his symptoms are related. 7. Heart failure with preserved ejection fraction: overall he seems well compensated. His Lasix has been out for 2 days. His hyponatremia has not changed. I would advocate at least initiating a daily dose of Lasix. Admission and Anticipated Discharge Date Admission Date: October 25, 2021 Subjective This morning patient claimed he feeling well. He is ambulatory in the halls with a walker. He states that he fell well. He had some mild shortness of breath at times. This is not appear to be limiting in any way. No dizziness lightheadedness. No chest pain. Overall feeling better than the time of admission Review of Systems Review of Systems: per HPI Physical Exam Physical Exam: The patient is alert and oriented. Mood and affect appeared normal. He answered all questions appropriately. HEENT: Pupils are equal and reactive to light and accommodation. Extraocular movements are intact. The sclerae are anicteric. Neuro: Cranial nerves intact. resting tremor in the right hand Lungs: Clear to auscultation bilaterally with perhaps some slightly reduced breath sounds at the left base. He has good air movement without use of accessory muscles. No rales wheezes or rhonchi. Cardiac: Heart demonstrates a regular rate and rhythm. Normal S1 and S2. Crescendo systolic murmur. Pulses: The patient has palpable radial pulses bilaterally that are equal in intensity Extremities: There was no evidence of hypoperfusion. There is no cyanosis or clubbing. Mild lower extremity edema involving the left leg with trophic changes and lymphedema on the right leg. Skin: I did not appreciate any rashes on examination today. Results & Data ([facility]) Vital Signs (Past 12 Hours) Vital Signs Temp Pulse Pulse Resp BP Pulse Ox O2 Del Method 10/31/21 11:26 36.4 C L 63 18 143/72 H 98 Room Air 10/31/21 07:51 36.5 C 63 18 100/53 L 97 Room Air 10/31/21 07:35 64 10/31/21 03:06 36.4 C L 59 L 16 129/63 95 Room Air Laboratory Results Abnormal Lab Results 10/30/21 10/30/21 10/31/21 16:04 19:59 06:38 Hgb 8.2 L Hct 24.8 L PT INR Sodium Potassium Chloride Carbon Dioxide Anion Gap BUN Creatinine Est Cr Clr Drug Dosing Est GFR ( Amer) Est GFR (Non-Af Amer) BUN/Creatinine Ratio Glucose POC Glucose 201 H 215 H Calcium Total Bilirubin AST ALT Alkaline Phosphatase Total Protein Albumin Globulin Albumin/Globulin Ratio 10/31/21 10/31/21 10/31/21 06:38 06:38 07:43 Hgb Hct PT 23.4 H INR 2.3 H Sodium 126 L Potassium 4.1 Chloride 97 L Carbon Dioxide 23 Anion Gap 6 BUN 44 H Creatinine 1.57 H Est Cr Clr Drug Dosing 33.2 Est GFR ( Amer) 45.6 Est GFR (Non-Af Amer) 39.3 BUN/Creatinine Ratio 28.0 H Glucose 153 H POC Glucose 184 H Calcium 7.8 L Total Bilirubin 1.9 H AST 12 L ALT 13 Alkaline Phosphatase 79 Total Protein 6.3 Albumin 2.8 L Globulin 3.5 Albumin/Globulin Ratio 0.8 L 10/31/21 11:00 Hgb Hct PT INR Sodium Potassium Chloride Carbon Dioxide Anion Gap BUN Creatinine Est Cr Clr Drug Dosing Est GFR ( Amer) Est GFR (Non-Af Amer) BUN/Creatinine Ratio Glucose POC Glucose 297 H Calcium Total Bilirubin AST ALT Alkaline Phosphatase Total Protein Albumin Globulin Albumin/Globulin Ratio Diagnostic Findings CT of the head and neck did not demonstrate any acute process. Chest x-ray did not demonstrate any acute findings. 1. Cardiac catheterization 01/21/2021: CLEARY to LAD patent. SVG to OM patent. Mid LAD 100%. Co dominant system. 2. [place]AVR 04/23/21 [place] [facility] [place]: 29 mm Ayers Eunice. 3. Echo 08/27/2021: Normal LV systolic function. EF 65%. Normal wall motion. Mild to moderate concentric LVH. biatrial dilation. TAVR with elevated transvalvular velocity and gradient, with leaflets reported as opening well on visual inspection. Moderate mitral stenosis (mean grad 9). Mild to moderate MR. Mild to moderate TR. PASP 46. ECG Additional Comments: EKG obtained the time admission was sinus rhythm with paced QRS PG Care Time/CCT Total # of Minutes Spent Total Time Spent with Patient: Total time spent is greater than 50% in coordination of care (as documented) at patient's floor/unit and/or counseling patient: Coding Level of Care Code 16128 Subseq Hosp Care Lvl 2 Diagnoses Coronary artery disease I25.10 Chronic heart failure with preserved ejection fraction I50.32 Paroxysmal atrial fibrillation I48.0 S/P TAVR (transcatheter aortic valve replacement) Z95.2 Pacemaker Z95.0 CHB (complete heart block) I44.2 Weakness R53.1
[2021-10-31] MEDS: WARFARIN SOD 5 MG TAB PO SCH (16:11)
[2021-10-31] MEDS: SIMVASTATIN 20 MG TAB PO SCH (20:35)
[2021-10-31] MEDS: TAMSULOSIN HCL 0.4 MG CAP PO SCH (20:36)
[2021-11-01 06:08] LABS: Hematocrit (blood only) 25.1 % (40.1-51.0); Hemoglobin 8.5 g/dl (14.0-18.0)
[2021-11-01 06:30] LABS: INR 2.3 (0.9-1.1); Prothrombin Time 23.5 Seconds (9.0-12.0)
[2021-11-01 06:40] LABS: Albumin Globulin Ratio 0.8 (0.9-2); Albumin Level 2.8 gm/dl (3.4-5.0); BUN Creatinine Ratio 26.8 (10-20); Bilirubin,Total 1.7 mg/dl (0.2-1.0); Calcium 7.8 mg/dl (8.5-10.1); Creatinine Clr Calc Pharmacy 34.1 ml/min; Est GFR (Non-African American) 40.6 ml/min; Globulin 3.5 gm/dl (2.5-4.0); Potassium 3.9 mmol/L (3.5-5.1); Total Protein 6.3 gm/dl (6.0-8.3)
--- NOTE | 2021-11-01 06:50 | Hospitalist Progress Note ---
Date of Service November 01, 2021 Assessment & Plan (1) Generalized weakness: Plan: 86 yo male PMHX including deficiency, status post CABG, CAD, chronic HFpEF, paroxysmal atrial fibrillation, diabetes mellitus, status post TAVR, long-term anticoagulant use, status post pacemaker, CKD, aortic stenosis, BPH with LUTS, hypertension, hypercholesterolemia, and anemia presented for worsening fatigue, inability to participate with PT at home, and lethargy. Generalized weakness Multifactorial: Hypoglycemia, anemia, acute on chronic CHF PT/OT: recommend acute rehab, pending placement Acute on chronic heart failure with preserved ejection fraction (HFpEF) Elevated troponin CAD Pacemaker Seen by cardiology, following.Troponin down trended. Low suspicion for ACS, likely some demand with anemia.Further ischemic evaluation not recommended at this time. Continue home metoprolol, amlodipine, statin, warfarin - Initially appeared fluid overloaded, home lasix was restarted but Cr and Na worsened. Lasix was held, half maintenance IVF was given and labs improved however pt developed SOB/overload. Cr currently at upper end of baseline which may become his new normal. Decreased lasix dose to 40mg daily (10/31). Cr and Na stable. Will likely cont. this dose on discharge. - Follows with heart clinic - monitor IOs, daily weights, bmp CKD (chronic kidney disease) stage 3, GFR 30-59 ml/min Creatinine 1.39 upon admission, with range 1.25-1.60 As above Hyponatremia -baseline ~130; 126 today, stable -ddx poor oral intake vs fluid overloaded vs volume constriction -improved with IVF however, kidneys not allowing further fluids -tx as above for now -mental status intact, cont. to monitor. -repeat bmp am, may be new baseline as long as he is stable Symptomatic anemia Symptomatic anemia/thrombocytopenia Received 2 units of packed red blood cells in the ER for symptomatic anemia Hemoglobin 7.2 on admission, appropriate rise to 9.6, subsequent stable ~9 Hemoccult negative. peripheral smear neg for MDS - low iron, venofer x5 (total 1gm); recheck Hgb in 1 month Anticoagulation was held for concern of GI bleed. Past concern has been raised for the potential for AVMs. Of note patient has a normal BUN, and has had negative Hemoccults so far. Intravascular panel does not show positive direct Julius, fibrinogen is not decreased. Patient is high risk to be off warfarin both due to his history of atrial fibrillation and history of aortic stenosis status post TAVR with elevated gradients and some leaflet thrombus in the past. Given this would not hold warfarin unless absolutely necessary, and at this time it is not clearly GI bleeding.Recent EGD neg for bleed. - Would not recommend colonoscopy for now given low concern for GI bleed. s/p TAVR paroxysmal atrial fibrillation - on warfarin, metoprolol - INR 2.3, goal 2.5-3.5, monitor DM II (diabetes mellitus, type II), controlled hypoglycemic to 57 on admission, improved with D5 Hold and discontinue home glipizide cont. BSG checks, on SSI A1C 6.3 consider initiation of SGLT or GLP-4 on discharge or close f/u with pcp given glipizide discontinued; pt needed insulin for control in hospital Hypercholesterolemia Cont. home simvastatin Vitamin B12 deficiency (dietary) anemia Cont. supplement BPH w urinary obs/LUTS Cont. tamsulosin, changed to evening as taking in the morning may be contributing to part of his symptoms DVT ppx: warfarin FEN/GI: HH, DM2, 1.8L fluid restriction Code Status: DNR/DNI Dispo: PCU tele (2) Hypoglycemia associated with diabetes: (3) Acute on chronic heart failure with preserved ejection fraction (HFpEF): (4) Symptomatic anemia: (5) Vitamin B12 deficiency (dietary) anemia: (6) History of heart bypass surgery: (7) Coronary artery disease: (8) Chronic heart failure with preserved ejection fraction: (9) Paroxysmal atrial fibrillation: (10) S/P TAVR (transcatheter aortic valve replacement): (11) CKD (chronic kidney disease) stage 3, GFR 30-59 ml/min: (12) Elevated troponin: (13) BPH w urinary obs/LUTS: (14) Hypertension: Admission and Anticipated Discharge Date Admission Date: October 25, 2021 Supervising Physician Co-Signing Physician Notes I also saw the patient confirmed martinez portions of the history and the physical examination. I agree with the impression and plan as noted in the resident documentation. Upon our late afternoon visit with the patient, he was seen at bedside chair without complaint. Exam 120/67, 64, 18, 36.7, 97% on room air Heart irregularly irregular Respirations nonlabored. Lungs clear, though somewhat decreased in the bases Abdomen soft and nontender 2+ pitting edema bilateral lower extremities Data Hemoglobin 8.5 INR 2.3 Sodium 126, potassium 3.9, BUN 41, creatinine 1.53 Impression and plan HFpEF in the setting of CAD, paroxysmal AF CKD, stage III Hyponatremia Continue diuresis Monitor I's and O's and daily weights Monitor renal function Deconditioning PT/OT consultation Pending placement with case management Anemia Status post units of packed red blood cells and IV iron Hemoglobin stable Monitor CBC, transfuse at 7 Continue systemic anticoagulation given high risk of emboli Additional per resident documentation Subjective Seen at the bedside this morning. Doing well this morning. Wants to be out of hospital. Denies lightheadedness, dizziness, chest pain, chest pressure, shortness of breath, difficulty breathing. Review of Systems Review of Systems: All systems reviewed & are unremarkable except as noted in HPI & below Physical Exam 2 Physical Exam: General: AOx3. NAD. Cooperative.Sitting up in bedside chair comfortably, leans to right at baseline. HEENT: NCAT.EOMI. Pulm: Diminished lung sounds R>L, improving. -wheezes, -rales, -rhonchi. Symmetrical chest rise. No increase in work of breathing. No respiratory distress. Cardiac: RRR, -mrg. Radial pulses intact and symmetrical. Abdominal: Nontender, nondistended, soft. BS present. Extremities: Warm and dry.2+ pitting edema LE R>L (chronic) Results & Data Results & Data ([facility]) Vital Signs (Past 12 Hours) Vital Signs Temp Pulse Pulse Resp BP Pulse Ox O2 Del Method 11/01/21 03:24 36.8 C 62 15 126/62 94 Room Air 11/01/21 02:36 68 10/31/21 23:24 36.3 C L 62 16 137/65 97 Room Air 10/31/21 19:30 Room Air 10/31/21 19:19 36.7 C 69 18 145/63 H 98 Room Air Laboratory Results 11/01/21 11/01/21 11/01/21 Range/Units 16:21 11:21 07:19 Hgb (14.0-18.0) g/dl Hct (40.1-51.0) % PT (9.0-12.0) Seconds INR (0.9-1.1) Sodium (136-145) mmol/L Potassium (3.5-5.1) mmol/L Chloride (98-107) mmol/L Carbon Dioxide (21-32) mmol/L Anion Gap (3-11) BUN (6-23) mg/dl Creatinine (0.6-1.4) mg/dl Est Cr Clr Drug Dosing ml/min Est GFR ( Amer) ml/min Est GFR (Non-Af Amer) ml/min BUN/Creatinine Ratio (10-20) Glucose (70-99(Fasting)) mg/dl POC Glucose 137 H 254 H 179 H (70-99) mg/dl Calcium (8.5-10.1) mg/dl Total Bilirubin (0.2-1.0) mg/dl AST (13-39) U/L ALT (7-52) U/L Alkaline Phosphatase (34-104) U/L Total Protein (6.0-8.3) gm/dl Albumin (3.4-5.0) gm/dl Globulin (2.5-4.0) gm/dl Albumin/Globulin Ratio (0.9-2) 11/01/21 11/01/21 11/01/21 Range/Units 05:33 05:33 05:33 Hgb 8.5 L (14.0-18.0) g/dl Hct 25.1 L (40.1-51.0) % PT 23.5 H (9.0-12.0) Seconds INR 2.3 H (0.9-1.1) Sodium 126 L (136-145) mmol/L Potassium 3.9 (3.5-5.1) mmol/L Chloride 97 L (98-107) mmol/L Carbon Dioxide 23 (21-32) mmol/L Anion Gap 6 (3-11) BUN 41 H (6-23) mg/dl Creatinine 1.53 H (0.6-1.4) mg/dl Est Cr Clr Drug Dosing 34.1 ml/min Est GFR ( Amer) 47.0 ml/min Est GFR (Non-Af Amer) 40.6 ml/min BUN/Creatinine Ratio 26.8 H (10-20) Glucose 161 H (70-99(Fasting)) mg/dl POC Glucose (70-99) mg/dl Calcium 7.8 L (8.5-10.1) mg/dl Total Bilirubin 1.7 H (0.2-1.0) mg/dl AST 12 L (13-39) U/L ALT 11 (7-52) U/L Alkaline Phosphatase 78 (34-104) U/L Total Protein 6.3 (6.0-8.3) gm/dl Albumin 2.8 L (3.4-5.0) gm/dl Globulin 3.5 (2.5-4.0) gm/dl Albumin/Globulin Ratio 0.8 L (0.9-2) 10/31/21 Range/Units 20:01 Hgb (14.0-18.0) g/dl Hct (40.1-51.0) % PT (9.0-12.0) Seconds INR (0.9-1.1) Sodium (136-145) mmol/L Potassium (3.5-5.1) mmol/L Chloride (98-107) mmol/L Carbon Dioxide (21-32) mmol/L Anion Gap (3-11) BUN (6-23) mg/dl Creatinine (0.6-1.4) mg/dl Est Cr Clr Drug Dosing ml/min Est GFR ( Amer) ml/min Est GFR (Non-Af Amer) ml/min BUN/Creatinine Ratio (10-20) Glucose (70-99(Fasting)) mg/dl POC Glucose 199 H (70-99) mg/dl Calcium (8.5-10.1) mg/dl Total Bilirubin (0.2-1.0) mg/dl AST (13-39) U/L ALT (7-52) U/L Alkaline Phosphatase (34-104) U/L Total Protein (6.0-8.3) gm/dl Albumin (3.4-5.0) gm/dl Globulin (2.5-4.0) gm/dl Albumin/Globulin Ratio (0.9-2) Resident Activity Tracking Resident Involvement: Resident Care Provided Care Provided: Adult Hospital Medicine
[2021-11-01] MEDS: INSULIN ASPART PER UNIT SC SCH ×4 (09:55→20:59)
[2021-11-01] MEDS: METOPROLOL SUCC 50MG EXT REL TAB PO SCH (10:01)
[2021-11-01] MEDS: MAGNESIUM OXIDE 400 MG TAB PO SCH (10:02)
[2021-11-01] MEDS: FOLIC ACID 1 MG TAB PO SCH (10:02)
[2021-11-01] MEDS: CYANOCOBALAMIN (B-12) 2,500 MCG TABLET SL SCH (10:02)
[2021-11-01] MEDS: amLODIPine BESYLATE 5 MG TAB PO SCH (10:02)
[2021-11-01] MEDS: FINASTERIDE 5 MG TAB PO SCH (10:03)
[2021-11-01] MEDS: WARFARIN SOD 2.5 MG TAB PO SCH (16:04)
[2021-11-01] MEDS ORDERED: IRON SUCROSE 200 MG in 0.9 % SODIUM CHLORIDE 100 ML IV ONE (17:30)
[2021-11-01] MEDS: FUROSEMIDE 40 MG TAB PO SCH (17:51)
[2021-11-01] MEDS: TAMSULOSIN HCL 0.4 MG CAP PO SCH (20:35)
[2021-11-01] MEDS: SIMVASTATIN 20 MG TAB PO SCH (20:35)
[2021-11-02 06:24] LABS: Hematocrit (blood only) 25.2 % (40.1-51.0); Hemoglobin 8.5 g/dl (14.0-18.0)
[2021-11-02 06:51] LABS: INR 2.5 (0.9-1.1); Prothrombin Time 25.3 Seconds (9.0-12.0)
[2021-11-02 06:52] LABS: Albumin Globulin Ratio 0.8 (0.9-2); Albumin Level 2.8 gm/dl (3.4-5.0); BUN Creatinine Ratio 26.5 (10-20); Bilirubin,Total 1.5 mg/dl (0.2-1.0); Calcium 7.9 mg/dl (8.5-10.1); Creatinine Clr Calc Pharmacy 35.4 ml/min; Est GFR (African American) 49.4 ml/min; Est GFR (Non-African American) 42.6 ml/min; Globulin 3.5 gm/dl (2.5-4.0); Total Protein 6.3 gm/dl (6.0-8.3)
[2021-11-02] MEDS: MAGNESIUM OXIDE 400 MG TAB PO SCH (08:42)
[2021-11-02] MEDS: amLODIPine BESYLATE 5 MG TAB PO SCH (08:42)
[2021-11-02] MEDS: FOLIC ACID 1 MG TAB PO SCH (08:42)
[2021-11-02] MEDS: FINASTERIDE 5 MG TAB PO SCH (08:42)
[2021-11-02] MEDS: METOPROLOL SUCC 50MG EXT REL TAB PO SCH (08:42)
[2021-11-02] MEDS: CYANOCOBALAMIN (B-12) 2,500 MCG TABLET SL SCH (08:42)
[2021-11-02] MEDS: FUROSEMIDE 40 MG TAB PO SCH (08:42)
[2021-11-02] MEDS: INSULIN ASPART PER UNIT SC SCH ×4 (08:46→21:02)
--- NOTE | 2021-11-02 12:02 | Hospitalist Progress Note ---
Date of Service November 02, 2021 Assessment & Plan (1) Generalized weakness: Plan: 86 yo male PMHX including deficiency, status post CABG, CAD, chronic HFpEF, paroxysmal atrial fibrillation, diabetes mellitus, status post TAVR, long-term anticoagulant use, status post pacemaker, CKD, aortic stenosis, BPH with LUTS, hypertension, hypercholesterolemia, and anemia presented for worsening fatigue, inability to participate with PT at home, and lethargy. Generalized weakness Multifactorial: Hypoglycemia, anemia, acute on chronic CHF PT/OT: recommend acute rehab, pending placement Acute on chronic heart failure with preserved ejection fraction (HFpEF) Elevated troponin CAD Pacemaker sec to demand ischemia secondary to anemia. Continue home metoprolol, amlodipine, statin, warfarin - Initially appeared fluid overloaded, home lasix was restarted but Cr and Na worsened. Lasix was held, half maintenance IVF was given and labs improved however pt developed SOB/overload. Cr currently at upper end of baseline which may become his new normal. Decreased lasix dose to 40mg daily (10/31). Cr and Na stable. Will likely cont. this dose on discharge. - Follows with heart clinic - monitor IOs, daily weights, bmp CKD (chronic kidney disease) stage 3, GFR 30-59 ml/min -Creatinine 1.39 upon admission, with range 1.25-1.60 -As above Hyponatremia -baseline ~130; 127 today, stable -ddx poor oral intake vs fluid overloaded vs volume constriction -improved with IVF however, kidneys not allowing further fluids -mental status intact, cont. to monitor. -repeat bmp am, may be new baseline as long as he is stable Symptomatic anemia Symptomatic anemia/thrombocytopenia Received 2 units of packed red blood cells in the ER for symptomatic anemia Hemoglobin 7.2 on admission, appropriate rise to 9.6, currently 8.5 and stable - Transfusion goal of 8 Hemoccult negative. peripheral smear neg for MDS - low iron, venofer x5 (total 1gm); recheck Hgb in 1 month - warfarin resumed. h/h stable. s/p TAVR paroxysmal atrial fibrillation - on warfarin, metoprolol - INR 2.5, goal 2.5-3.5, monitor DM II (diabetes mellitus, type II), controlled -hypoglycemic to 57 on admission, improved with D5 -D/c'd home glipizide -cont. BSG checks, on SSI -A1C 6.3 -consider initiation of SGLT or GLP-1 on discharge or close f/u with pcp given glipizide discontinued; pt needed insulin for control in hospital Hypercholesterolemia -Cont. home simvastatin, consider high intensity statin in outpatient given hx of CAD Vitamin B12 deficiency (dietary) anemia -Cont. supplement BPH w urinary obs/LUTS -Cont. tamsulosin, changed to evening as taking in the morning may be contributing to part of his symptoms DVT ppx: warfarin FEN/GI: HH, DM2, 1.8L fluid restriction Code Status: DNR/DNI Dispo: PCU tele (2) Hypoglycemia associated with diabetes: (3) Acute on chronic heart failure with preserved ejection fraction (HFpEF): (4) Symptomatic anemia: (5) Vitamin B12 deficiency (dietary) anemia: (6) History of heart bypass surgery: (7) Coronary artery disease: (8) Chronic heart failure with preserved ejection fraction: (9) Paroxysmal atrial fibrillation: (10) S/P TAVR (transcatheter aortic valve replacement): (11) CKD (chronic kidney disease) stage 3, GFR 30-59 ml/min: (12) Elevated troponin: (13) BPH w urinary obs/LUTS: (14) Hypertension: Admission and Anticipated Discharge Date Admission Date: October 25, 2021 Supervising Physician Co-Signing Physician Notes Resident Physician Supervision Note: I independently interviewed and examined the patient and verified the martinez history and physical, reviewed labs and image studies and agree with resident findings and care plan. Subjective Patient seen at bedside this morning. No acute events reported overnight. Patient is curious as to why still in the hospital and wishes to go home. Patient is understanding that he has to wait until he has placement available to him which will not likely be until next week. Patient otherwise is comfortable and has no other complaints at this time. Review of Systems Review of Systems: All systems reviewed & are unremarkable except as noted in HPI & below Physical Exam Constitutional: WD/WN, vitals as above Eyes: + anicteric sclerae Neck: normal visual inspection Respiratory: normal respiratory effort, lungs clear to auscultation Cardiovascular: Rate/Rhythm: regular rate and + irregularly irregular Vessels: no JVD Extremities: + edema Chest (Breasts): Chest: + pacemaker Gastrointestinal (Abdomen): normal bowel sounds, soft, nontender, no hepatospl enomegaly Musculoskeletal: Head/Neck/Chest: normocephalic and head atraumatic Skin: no rashes, warm and dry Neurologic: moves all extremities Psychiatric: Orientation: alert Eye Contact: good eye contact Affect: euthymic affect Results & Data Results & Data ([facility]) Vital Signs (Past 12 Hours) Vital Signs Temp Pulse Resp BP Pulse Ox O2 Del Method 11/02/21 11:35 36.4 C L 73 20 152/80 H 98 Room Air 11/02/21 08:14 36.8 C 70 17 132/60 96 Room Air 11/02/21 03:44 36.7 C 62 18 151/62 H 96 Room Air
[2021-11-02] MEDS: WARFARIN SOD 5 MG TAB PO SCH (16:59)
[2021-11-02] MEDS: TAMSULOSIN HCL 0.4 MG CAP PO SCH (20:05)
[2021-11-02] MEDS: SIMVASTATIN 20 MG TAB PO SCH (20:05)
[2021-11-03 06:22] LABS: Hematocrit (blood only) 25.5 % (40.1-51.0); Hemoglobin 8.3 g/dl (14.0-18.0)
[2021-11-03 06:36] LABS: INR 2.6 (0.9-1.1); Prothrombin Time 26.4 Seconds (9.0-12.0)
[2021-11-03 06:47] LABS: Albumin Globulin Ratio 0.8 (0.9-2); Albumin Level 2.8 gm/dl (3.4-5.0); BUN Creatinine Ratio 27.5 (10-20); Bilirubin,Total 1.4 mg/dl (0.2-1.0); Calcium 7.9 mg/dl (8.5-10.1); Creatinine Clr Calc Pharmacy 36.7 ml/min; Est GFR (African American) 51.5 ml/min; Est GFR (Non-African American) 44.4 ml/min; Globulin 3.6 gm/dl (2.5-4.0); Potassium 4.3 mmol/L (3.5-5.1); Total Protein 6.4 gm/dl (6.0-8.3)
[2021-11-03] MEDS: METOPROLOL SUCC 50MG EXT REL TAB PO SCH (07:56)
[2021-11-03] MEDS: FINASTERIDE 5 MG TAB PO SCH (07:56)
[2021-11-03] MEDS: FUROSEMIDE 40 MG TAB PO SCH (07:56)
[2021-11-03] MEDS: CYANOCOBALAMIN (B-12) 2,500 MCG TABLET SL SCH (07:56)
[2021-11-03] MEDS: amLODIPine BESYLATE 5 MG TAB PO SCH (07:56)
[2021-11-03] MEDS: MAGNESIUM OXIDE 400 MG TAB PO SCH (07:56)
[2021-11-03] MEDS: FOLIC ACID 1 MG TAB PO SCH (07:56)
[2021-11-03] MEDS: INSULIN ASPART PER UNIT SC SCH ×4 (07:57→20:43)
--- NOTE | 2021-11-03 14:16 | Hospitalist Progress Note ---
Date of Service November 03, 2021 Assessment & Plan (1) Generalized weakness: Plan: 86 yo male PMHX including deficiency, status post CABG, CAD, chronic HFpEF, paroxysmal atrial fibrillation, diabetes mellitus, status post TAVR, long-term anticoagulant use, status post pacemaker, CKD, aortic stenosis, BPH with LUTS, hypertension, hypercholesterolemia, and anemia presented for worsening fatigue, inability to participate with PT at home, and lethargy. Generalized weakness Multifactorial: Hypoglycemia, anemia, acute on chronic CHF, anemia PT/OT: recommend acute rehab, [facility] Acute on chronic heart failure with preserved ejection fraction (HFpEF) Elevated troponin CAD Pacemaker - Initially appeared fluid overloaded, home lasix was restarted but Cr and Na wo rsened. Lasix was held, half maintenance IVF was given and labs improved however pt developed SOB/overload. Cr currently at upper end of baseline which may become his new normal. Decreased lasix dose to 40mg daily (10/31). Cr and Na stable. Will likely cont. this dose on discharge. troponin elevation sec to demand ischemia secondary to anemia. Continue home metoprolol, amlodipine, statin, warfarin - Follows with heart clinic - monitor IOs, daily weights, bmp CKD (chronic kidney disease) stage 3, GFR 30-59 ml/min -Creatinine 1.39 upon admission, with range 1.25-1.60 -As above Hyponatremia -baseline ~130; 127 today, stable -ddx poor oral intake vs fluid overloaded vs volume constriction -improved with IVF however, kidneys not allowing further fluids -mental status intact, cont. to monitor. -repeat bmp am, may be new baseline as long as he is stable Symptomatic anemia Symptomatic anemia/thrombocytopenia Received 2 units of packed red blood cells in the ER for symptomatic anemia Hemoglobin 7.2 on admission, appropriate rise to 9.6, currently 8.3 and stable - Transfusion goal of 8 Hemoccult negative. peripheral smear neg for MDS - low iron, venofer x5 (total 1gm); recheck Hgb in 1 month - warfarin resumed. h/h stable. s/p TAVR paroxysmal atrial fibrillation - on warfarin, metoprolol - INR 2.6, goal 2.5-3.5, monitor DM II (diabetes mellitus, type II), controlled -hypoglycemic to 57 on admission, improved with D5 -D/c'd home glipizide -cont. BSG checks, on SSI -A1C 6.3 -consider initiation of SGLT or GLP-1 on discharge or close f/u with pcp given glipizide discontinued; pt needed insulin for control in hospital Hypercholesterolemia -Cont. home simvastatin, consider high intensity statin in outpatient given hx of CAD Vitamin B12 deficiency (dietary) anemia -Cont. supplement BPH w urinary obs/LUTS -Cont. tamsulosin, changed to evening as taking in the morning may be contributing to part of his symptoms DVT ppx: warfarin FEN/GI: HH, DM2, 1.8L fluid restriction Code Status: DNR/DNI Dispo: Downgraded to [facility] (2) Hypoglycemia associated with diabetes: (3) Acute on chronic heart failure with preserved ejection fraction (HFpEF): (4) Symptomatic anemia: (5) Vitamin B12 deficiency (dietary) anemia: (6) History of heart bypass surgery: (7) Coronary artery disease: (8) Chronic heart failure with preserved ejection fraction: (9) Paroxysmal atrial fibrillation: (10) S/P TAVR (transcatheter aortic valve replacement): (11) CKD (chronic kidney disease) stage 3, GFR 30-59 ml/min: (12) Elevated troponin: (13) BPH w urinary obs/LUTS: (14) Hypertension: Admission and Anticipated Discharge Date Admission Date: October 25, 2021 Supervising Physician Co-Signing Physician Notes Resident Physician Supervision Note: I independently interviewed and examined the patient and verified the martinez his tory and physical, reviewed labs and image studies and agree with resident findings and care plan. Subjective Patient seen at bedside this morning. No acute events reported overnight. Patient is resting at my arrival. I woke him to see if there is anything I could do for him, patient reports that he is doing fine and has no complaints at this time Review of Systems Review of Systems: All systems reviewed & are unremarkable except as noted in HPI & below Physical Exam Constitutional: WD/WN, vitals as above Eyes: + anicteric sclerae Neck: normal visual inspection Respiratory: normal respiratory effort, lungs clear to auscultation Cardiovascular: Rate/Rhythm: regular rate and + irregularly irregular Vessels: no JVD Extremities: + edema Chest (Breasts): Chest: + pacemaker Gastrointestinal (Abdomen): normal bowel sounds, soft, nontender, no hepatosplenomegaly Musculoskeletal: Head/Neck/Chest: normocephalic and head atraumatic Skin: no rashes, warm and dry Neurologic: moves all extremities Psychiatric: Orientation: alert Eye Contact: good eye contact Affect: euthymic affect Results & Data Results & Data ([facility]) Vital Signs (Past 12 Hours) Vital Signs Temp Pulse Resp BP BP Pulse Ox O2 Del Method 11/03/21 13:39 Room Air 11/03/21 13:05 36.6 C 72 16 125/61 97 Room Air 11/03/21 11:53 36.4 C L 76 18 123/64 97 Room Air 11/03/21 07:58 36.5 C 68 18 128/61 97 Room Air 11/03/21 03:55 36.7 C 82 16 141/51 H 94 Room Air
[2021-11-03] MEDS: WARFARIN SOD 2.5 MG TAB PO SCH (16:18)
[2021-11-03] MEDS: SIMVASTATIN 20 MG TAB PO SCH (20:36)
[2021-11-03] MEDS: TAMSULOSIN HCL 0.4 MG CAP PO SCH (20:36)
[2021-11-04 07:59] LABS: Hematocrit (blood only) 25.9 % (40.1-51.0); Hemoglobin 8.4 g/dl (14.0-18.0)
--- NOTE | 2021-11-04 08:08 | Hospitalist Progress Note ---
Date of Service November 04, 2021 Assessment & Plan (1) Generalized weakness: Plan: 86 yo male PMHX including deficiency, status post CABG, CAD, chronic HFpEF, paroxysmal atrial fibrillation, diabetes mellitus, status post TAVR, long-term anticoagulant use, status post pacemaker, CKD, aortic stenosis, BPH with LUTS, hypertension, hypercholesterolemia, and anemia presented for worsening fatigue, inability to participate with PT at home, and lethargy. Generalized weakness Multifactorial: Hypoglycemia, anemia, acute on chronic CHF PT/OT: recommend acute rehab, pending placement at [facility] or [facility] Acute on chronic heart failure with preserved ejection fraction (HFpEF) Elevated troponin CAD Pacemaker sec to demand ischemia secondary to anemia. Continue home metoprolol, amlodipine, statin, warfarin - Initially appeared fluid overloaded, home lasix was restarted but Cr and Na worsened. Lasix was held, half maintenance IVF was given and labs improved however pt developed SOB/overload. Cr currently at upper end of baseline which may become his new normal. Decreased lasix dose to 40mg daily (10/31). Cr and Na stable. Will likely cont. this dose on discharge. - Follows with heart clinic - monitor IOs, daily weights, bmp CKD (chronic kidney disease) stage 3, GFR 30-59 ml/min -Creatinine 1.39 upon admission, with range 1.25-1.60 -As above Hyponatremia -baseline ~130; 127 today, stable -ddx poor oral intake vs fluid overloaded vs volume constriction -improved with IVF however, kidneys not allowing further fluids -mental status intact, cont. to monitor. -May be new baseline as long as he is stable Symptomatic anemia Symptomatic anemia/thrombocytopenia Received 2 units of packed red blood cells in the ER for symptomatic anemia Hemoglobin 7.2 on admission, appropriate rise to 9.6, currently 8.4 and stable - Transfusion goal of 8 Hemoccult negative. peripheral smear neg for MDS - low iron, venofer x5 (total 1gm); recheck Hgb in 1 month - warfarin resumed. h/h stable. s/p TAVR paroxysmal atrial fibrillation - on warfarin, metoprolol - INR 2.6, goal 2.5-3.5, monitor DM II (diabetes mellitus, type II), controlled -hypoglycemic to 57 on admission, improved with D5 -D/c'd home glipizide -cont. BSG checks, on SSI -A1C 6.3 -Can consider initiation of SGLT or GLP-1 with f/u with pcp given glipizide discontinued; pt needed insulin for control in hospital Hypercholesterolemia -Cont. home simvastatin, consider high intensity statin in outpatient given hx of CAD Vitamin B12 deficiency (dietary) anemia -Cont. supplement BPH w urinary obs/LUTS -Cont. tamsulosin, changed to evening as taking in the morning may be contributing to part of his symptoms DVT ppx: warfarin FEN/GI: HH, DM2, 1.8L fluid restriction Code Status: DNR/DNI Dispo: Downgraded to MedSurg, pending placement to either [facility] or [facility]. (2) Hypoglycemia associated with diabetes: (3) Acute on chronic heart failure with preserved ejection fraction (HFpEF): (4) Symptomatic anemia: (5) Vitamin B12 deficiency (dietary) anemia: (6) History of heart bypass surgery: (7) Coronary artery disease: (8) Chronic heart failure with preserved ejection fraction: (9) Paroxysmal atrial fibrillation: (10) S/P TAVR (transcatheter aortic valve replacement): (11) CKD (chronic kidney disease) stage 3, GFR 30-59 ml/min: (12) Elevated troponin: (13) BPH w urinary obs/LUTS: (14) Hypertension: Admission and Anticipated Discharge Date Admission Date: October 25, 2021 Supervising Physician Co-Signing Physician Notes I personally examined the patient and verified all martinez points of history and exam, discussed case, and agree with decision making with Dr Zavala feeling OK just waiting on rehab vitals noted nad heent nc at mmm breathing unlabored no accessory muscles good effort skin no rashes no pallor icterus anemia - clinically stable. discussed outpt f/u. awaiting placement, stable when bed available/approved Subjective Patient seen at the bedside this morning saying he feels well, denies any chest pain, shortness of breath, nausea, vomiting. He still feels weak however is ready to work on this with inpatient rehabilitation. Review of Systems Constitutional: as per Subjective / HPI Physical Exam Constitutional: WD/WN, vitals as above Respiratory: normal respiratory effort, lungs clear to auscultation Cardiovascular: Rate/Rhythm: regular rate and regular rhythm Heart Sounds: normal S1 and normal S2 Extremities: + edema (2+ pitting edema. ) Gastrointestinal (Abdomen): normal bowel sounds, soft, nontender, no hepatosplenomegaly Psychiatric: A+Ox3, euthymic affect Results & Data Results & Data ([facility]) Vital Signs (Past 12 Hours) Vital Signs Temp Pulse Resp BP Pulse Ox O2 Del Method 11/04/21 07:43 36.4 C L 74 16 150/61 H 90 Room Air 11/03/21 20:33 36.4 C L 54 L 16 128/65 98 Room Air Resident Activity Tracking Resident Involvement: Resident Care Provided Care Provided: Adult Hospital Medicine
[2021-11-04 08:15] LABS: INR 2.7 (0.9-1.1); Prothrombin Time 27.2 Seconds (9.0-12.0)
[2021-11-04 08:20] LABS: Albumin Globulin Ratio 0.8 (0.9-2); Albumin Level 2.9 gm/dl (3.4-5.0); Bilirubin,Total 1.6 mg/dl (0.2-1.0); Calcium 8.1 mg/dl (8.5-10.1); Creatinine Clr Calc Pharmacy 35.7 ml/min; Est GFR (African American) 49.8 ml/min; Est GFR (Non-African American) 42.9 ml/min; Globulin 3.8 gm/dl (2.5-4.0); Potassium 4.2 mmol/L (3.5-5.1); Total Protein 6.7 gm/dl (6.0-8.3)
[2021-11-04] MEDS: INSULIN ASPART PER UNIT SC SCH ×4 (08:45→21:02)
[2021-11-04] MEDS: METOPROLOL SUCC 50MG EXT REL TAB PO SCH (08:49)
[2021-11-04] MEDS: FUROSEMIDE 40 MG TAB PO SCH (08:49)
[2021-11-04] MEDS: FOLIC ACID 1 MG TAB PO SCH (08:49)
[2021-11-04] MEDS: MAGNESIUM OXIDE 400 MG TAB PO SCH (08:49)
[2021-11-04] MEDS: FINASTERIDE 5 MG TAB PO SCH (08:50)
[2021-11-04] MEDS: CYANOCOBALAMIN (B-12) 2,500 MCG TABLET SL SCH (08:50)
[2021-11-04] MEDS: amLODIPine BESYLATE 5 MG TAB PO SCH (08:50)
[2021-11-04] MEDS: WARFARIN SOD 5 MG TAB PO SCH (16:14)
[2021-11-04] MEDS ORDERED: LANTUS PER UNIT CHARGE SQ ONE (17:34)
--- NOTE | 2021-11-04 19:59 | Billing Data ---
Date of Service November 04, 2021 Coding Level of Care Code 88581 Subseq Hosp Care Lvl 1
[2021-11-04] MEDS: SIMVASTATIN 20 MG TAB PO SCH (20:12)
[2021-11-04] MEDS: TAMSULOSIN HCL 0.4 MG CAP PO SCH (20:12)
--- NOTE | 2021-11-05 06:51 | Hospitalist Progress Note ---
Date of Service November 05, 2021 Assessment & Plan (1) Generalized weakness: Plan: 86 yo male PMHX including deficiency, status post CABG, CAD, chronic HFpEF, paroxysmal atrial fibrillation, diabetes mellitus, status post TAVR, long-term anticoagulant use, status post pacemaker, CKD, aortic stenosis, BPH with LUTS, hypertension, hypercholesterolemia, and anemia presented for worsening fatigue, inability to participate with PT at home, and lethargy. Generalized weakness Multifactorial: Hypoglycemia, anemia, acute on chronic CHF PT/OT: recommend acute rehab, pending placement at [facility] or [place] [facility] Acute on chronic heart failure with preserved ejection fraction (HFpEF) Elevated troponin CAD Pacemaker sec to demand ischemia secondary to anemia. Continue home metoprolol, amlodipine, statin, warfarin - Initially appeared fluid overloaded, home lasix was restarted but Cr and Na worsened. Lasix was held, half maintenance IVF was given and labs improved however pt developed SOB/overload. Cr currently at upper end of baseline which may become his new normal. Decreased lasix dose to 40mg daily (10/31). Cr and Na stable. Will likely cont. this dose on discharge. - Follows with heart clinic - monitor IOs, daily weights, bmp CKD (chronic kidney disease) stage 3, GFR 30-59 ml/min -Creatinine 1.39 upon admission, with range 1.25-1.60 -As above Hyponatremia -baseline ~130; 127 today, stable -ddx poor oral intake vs fluid overloaded vs volume constriction -improved with IVF however, kidneys not allowing further fluids -mental status intact, cont. to monitor. -May be new baseline as long as he is stable Symptomatic anemia Symptomatic anemia/thrombocytopenia Received 2 units of packed red blood cells in the ER for symptomatic anemia Hemoglobin 7.2 on admission, appropriate rise to 9.6, currently 8.4 and stable - Transfusion goal of 8 Hemoccult negative. peripheral smear neg for MDS - low iron, venofer x5 (total 1gm); recheck Hgb in 1 month - warfarin resumed. h/h stable. s/p TAVR paroxysmal atrial fibrillation - on warfarin, metoprolol - INR 2.6, goal 2.5-3.5, monitor DM II (diabetes mellitus, type II), controlled -hypoglycemic to 57 on admission, improved with D5 -D/c'd home glipizide -cont. BSG checks, on SSI -A1C 6.3 -Can consider initiation of SGLT or GLP-1 with f/u with pcp given glipizide discontinued; pt needed insulin for control in hospital Hypercholesterolemia -Cont. home simvastatin, consider high intensity statin in outpatient given hx of CAD Vitamin B12 deficiency (dietary) anemia -Cont. supplement BPH w urinary obs/LUTS -Cont. tamsulosin, changed to evening as taking in the morning may be contributing to part of his symptoms DVT ppx: warfarin FEN/GI: HH, DM2, 1.8L fluid restriction Code Status: DNR/DNI Dispo: Downgraded to MedSurg, pending placement to either [facility] or [facility] - may not be till end of the week. (2) Hypoglycemia associated with diabetes: (3) Acute on chronic heart failure with preserved ejection fraction (HFpEF): (4) Symptomatic anemia: (5) Vitamin B12 deficiency (dietary) anemia: (6) History of heart bypass surgery: (7) Coronary artery disease: (8) Chronic heart failure with preserved ejection fraction: (9) Paroxysmal atrial fibrillation: (10) S/P TAVR (transcatheter aortic valve replacement): (11) CKD (chronic kidney disease) stage 3, GFR 30-59 ml/min: (12) Elevated troponin: (13) BPH w urinary obs/LUTS: (14) Hypertension: Admission and Anticipated Discharge Date Admission Date: October 25, 2021 Supervising Physician Co-Signing Physician Notes I personally examined the patient and verified all martinez points of history and exam, discussed case, and agree with decision making with Dr Zavala feeling OK just waiting on rehab no new complaints or problems. Discussed with case management. vitals noted nad heent nc at mmm breathing unlabored no accessory muscles good effort skin no rashes no pallor icterus anemia - clinically stable. discussed outpt f/u previously. awaiting placement, stable when bed available/approved awaiting SNF Subjective Patient seen at the bedside today feeling well and saying he's ready to make the next step. Denies any chest pain, shortness of breath, fevers, chills. Review of Systems Constitutional: as per Subjective / HPI Physical Exam Constitutional: WD/WN, vitals as above Respiratory: normal respiratory effort, lungs clear to auscultation Cardiovascular: Rate/Rhythm: regular rate and regular rhythm Heart Sounds: normal S1 and normal S2 Extremities: + edema (2+ pitting edema. ) Gastrointestinal (Abdomen): normal bowel sounds, soft, nontender, no hepatosplenomegaly Psychiatric: A+Ox3, euthymic affect Results & Data Results & Data ([facility]) Vital Signs (Past 12 Hours) Vital Signs Temp Pulse Resp BP Pulse Ox Pulse Ox O2 Del Method 11/04/21 22:27 36.9 C 63 18 139/65 96 Room Air 11/04/21 20:00 97 11/04/21 19:19 37 C 64 18 146/56 H 98 Room Air O2 Del Method 11/04/21 22:27 11/04/21 20:00 Room Air 11/04/21 19:19 Resident Activity Tracking Resident Involvement: Resident Care Provided Care Provided: Adult Hospital Medicine
[2021-11-05 07:59] LABS: Hematocrit (blood only) 24.5 % (40.1-51.0)
[2021-11-05 08:25] LABS: BUN Creatinine Ratio 26.3 (10-20); Calcium 7.9 mg/dl (8.5-10.1); Creatinine Clr Calc Pharmacy 33.4 ml/min; Est GFR (African American) 45.9 ml/min; Est GFR (Non-African American) 39.6 ml/min; Potassium 4.2 mmol/L (3.5-5.1)
[2021-11-05] MEDS: INSULIN ASPART PER UNIT SC SCH ×4 (09:01→21:01)
[2021-11-05] MEDS: CYANOCOBALAMIN (B-12) 2,500 MCG TABLET SL SCH (09:04)
[2021-11-05] MEDS: MAGNESIUM OXIDE 400 MG TAB PO SCH (09:04)
[2021-11-05] MEDS: FOLIC ACID 1 MG TAB PO SCH (09:05)
[2021-11-05] MEDS: METOPROLOL SUCC 50MG EXT REL TAB PO SCH (09:05)
[2021-11-05] MEDS: amLODIPine BESYLATE 5 MG TAB PO SCH (09:05)
[2021-11-05] MEDS: FINASTERIDE 5 MG TAB PO SCH (09:06)
[2021-11-05] MEDS: POLYETHYLENE (MIRALAX) 17 GM PACK PO SCH (16:37)
[2021-11-05] MEDS: WARFARIN SOD 5 MG TAB PO SCH (16:38)
--- NOTE | 2021-11-05 17:32 | Billing Data ---
Date of Service November 05, 2021 Coding Level of Care Code 90891 Subseq Hosp Care Lvl 1
[2021-11-05] MEDS: SIMVASTATIN 20 MG TAB PO SCH (19:58)
[2021-11-05] MEDS: TAMSULOSIN HCL 0.4 MG CAP PO SCH (19:58)
--- NOTE | 2021-11-06 06:41 | Hospitalist Progress Note ---
Date of Service November 06, 2021 Assessment & Plan (1) Generalized weakness: Plan: 86 yo male PMHX including deficiency, status post CABG, CAD, chronic HFpEF, paroxysmal atrial fibrillation, diabetes mellitus, status post TAVR, long-term anticoagulant use, status post pacemaker, CKD, aortic stenosis, BPH with LUTS, hypertension, hypercholesterolemia, and anemia presented for worsening fatigue, inability to participate with PT at home, and lethargy. Generalized weakness Multifactorial: Hypoglycemia, anemia, acute on chronic CHF PT/OT: recommend acute rehab, pending placement at [facility] awaiting insurance auth. Acute on chronic heart failure with preserved ejection fraction (HFpEF) Elevated troponin CAD Pacemaker sec to demand ischemia secondary to anemia. Continue home metoprolol, amlodipine, statin, warfarin - Initially appeared fluid overloaded, home lasix was restarted but Cr and Na worsened. Lasix was held, half maintenance IVF was given and labs improved however pt developed SOB/overload. Cr currently at upper end of baseline which may become his new normal. Decreased lasix dose to 40mg daily (10/31). Cr and Na stable. Will likely cont. this dose on discharge. - Follows with heart clinic - monitor IOs, daily weights, bmp CKD (chronic kidney disease) stage 3, GFR 30-59 ml/min -Creatinine 1.39 upon admission, with range 1.25-1.60 -As above Hyponatremia -baseline ~130; 127 today, stable -ddx poor oral intake vs fluid overloaded vs volume constriction -improved with IVF however, kidneys not allowing further fluids -mental status intact, cont. to monitor. -May be new baseline as long as he is stable Symptomatic anemia Symptomatic anemia/thrombocytopenia Received 2 units of packed red blood cells in the ER for symptomatic anemia Hemoglobin 7.2 on admission, appropriate rise to 9.6, currently 8.4 and stable - Transfusion goal of 8 Hemoccult negative. peripheral smear neg for MDS - low iron, venofer x5 (total 1gm); recheck Hgb in 1 month - warfarin resumed. h/h stable. s/p TAVR paroxysmal atrial fibrillation - on warfarin, metoprolol - INR 2.6, goal 2.5-3.5, monitor DM II (diabetes mellitus, type II), controlled -hypoglycemic to 57 on admission, improved with D5 -D/c'd home glipizide -cont. BSG checks, on SSI. Occasionally requiring Lantus for sugars in 200's. -A1C 6.3 -Can consider initiation of SGLT or GLP-1 with f/u with pcp given glipizide discontinued; pt needed insulin for control in hospital Hypercholesterolemia -Cont. home simvastatin, consider high intensity statin in outpatient given hx of CAD Vitamin B12 deficiency (dietary) anemia -Cont. supplement BPH w urinary obs/LUTS -Cont. tamsulosin, changed to evening as taking in the morning may be contributing to part of his symptoms DVT ppx: warfarin FEN/GI: HH, DM2, 1.8L fluid restriction Code Status: DNR/DNI Dispo: Downgraded to [employer], pending placement to either [facility] pending insurance auth - hopefully tomorrow or Thursday. (2) Hypoglycemia associated with diabetes: (3) Acute on chronic heart failure with preserved ejection fraction (HFpEF): (4) Symptomatic anemia: (5) Vitamin B12 deficiency (dietary) anemia: (6) History of heart bypass surgery: (7) Coronary artery disease: (8) Chronic heart failure with preserved ejection fraction: (9) Paroxysmal atrial fibrillation: (10) S/P TAVR (transcatheter aortic valve replacement): (11) CKD (chronic kidney disease) stage 3, GFR 30-59 ml/min: (12) Elevated troponin: (13) BPH w urinary obs/LUTS: (14) Hypertension: Admission and Anticipated Discharge Date Admission Date: October 25, 2021 Supervising Physician Co-Signing Physician Notes I personally examined the patient and verified all martinez points of history and exam, discussed case, and agree with decision making with Dr Zavala no complaints still waiting SNF/rehab vitals noted nad heent nc at mmm breathing unlabored no accessory muscles good effort skin no rashes no pallor icterus anemia - clinically stable. Hgb 8, hemodynamically stable. discussed outpt f/u previously. awaiting placement, stable when bed available/approved awaiting SNF Subjective Patient seen at the bedside this morning feeling well. Patient does not have any complaints and denies fevers, chills, shortness of breath. Review of Systems Constitutional: as per Subjective / HPI Physical Exam Constitutional: WD/WN, vitals as above Respiratory: normal respiratory effort, lungs clear to auscultation Cardiovascular: Rate/Rhythm: regular rate and regular rhythm Heart Sounds: normal S1 and normal S2 Extremities: + edema (2+ pitting edema. ) Gastrointestinal (Abdomen): normal bowel sounds, soft, nontender, no hepatosplenomegaly Psychiatric: A+Ox3, euthymic affect Results & Data Results & Data ([facility]) Vital Signs (Past 12 Hours) Vital Signs Temp Pulse Resp BP Pulse Ox Pulse Ox O2 Del Method 11/05/21 20:18 Room Air 11/05/21 20:00 97 11/05/21 19:44 37.1 C 77 18 123/66 98 Room Air O2 Del Method 11/05/21 20:18 11/05/21 20:00 Room Air 11/05/21 19:44 Resident Activity Tracking Resident Involvement: Resident Care Provided Care Provided: Adult Hospital Medicine
[2021-11-06] MEDS: FINASTERIDE 5 MG TAB PO SCH (08:32)
[2021-11-06] MEDS: MAGNESIUM OXIDE 400 MG TAB PO SCH (08:32)
[2021-11-06] MEDS: CYANOCOBALAMIN (B-12) 2,500 MCG TABLET SL SCH (08:33)
[2021-11-06] MEDS: FOLIC ACID 1 MG TAB PO SCH (08:33)
[2021-11-06] MEDS: amLODIPine BESYLATE 5 MG TAB PO SCH (08:33)
[2021-11-06] MEDS: POLYETHYLENE (MIRALAX) 17 GM PACK PO SCH (08:34)
[2021-11-06] MEDS: METOPROLOL SUCC 50MG EXT REL TAB PO SCH (08:34)
[2021-11-06] MEDS: INSULIN ASPART PER UNIT SC SCH ×4 (08:37→21:30)
--- NOTE | 2021-11-06 09:48 | Billing Data ---
Date of Service November 06, 2021 Coding Level of Care Code 04504 Subseq Hosp Care Lvl 1
[2021-11-06] MEDS ORDERED: MENTHOL-ZINC OXIDE 360 APPLN/120 GM TUBE EXT SCH (10:15)
[2021-11-06 10:22] LABS: INR 2.7 (0.9-1.1); Prothrombin Time 26.9 Seconds (9.0-12.0)
[2021-11-06] MEDS ORDERED: MENTHOL-ZINC OXIDE 360 APPLN/120 GM TUBE EXT PRN (10:30)
[2021-11-06] MEDS: WARFARIN SOD 2.5 MG TAB PO SCH (16:48)
[2021-11-06] MEDS ORDERED: LANTUS PER UNIT CHARGE SQ ONE (17:27)
[2021-11-06] MEDS: TAMSULOSIN HCL 0.4 MG CAP PO SCH (20:46)
[2021-11-06] MEDS: SIMVASTATIN 20 MG TAB PO SCH (20:46)
--- NOTE | 2021-11-07 06:49 | Hospitalist Progress Note ---
Date of Service November 07, 2021 Assessment & Plan (1) Generalized weakness: Plan: 86 yo male PMHX including deficiency, status post CABG, CAD, chronic HFpEF, paroxysmal atrial fibrillation, diabetes mellitus, status post TAVR, long-term anticoagulant use, status post pacemaker, CKD, aortic stenosis, BPH with LUTS, hypertension, hypercholesterolemia, and anemia presented for worsening fatigue, inability to participate with PT at home, and lethargy. Generalized weakness Multifactorial: Hypoglycemia, anemia, acute on chronic CHF PT/OT: recommend acute rehab, however denied by [employer] insurance from SNF. Will need home health and home PT. Acute on chronic heart failure with preserved ejection fraction (HFpEF) Elevated troponin CAD Pacemaker sec to demand ischemia secondary to anemia. Continue home metoprolol, amlodipine, statin, warfarin - Initially appeared fluid overloaded, home lasix was restarted but Cr and Na worsened. Lasix was held, half maintenance IVF was given and labs improved however pt developed SOB/overload. Cr currently at upper end of baseline which may become his new normal. Decreased lasix dose to 40mg daily (10/31). Cr and Na stable. Will likely cont. this dose on discharge. - Follows with heart clinic - monitor IOs, daily weights. CKD (chronic kidney disease) stage 3, GFR 30-59 ml/min -Creatinine 1.39 upon admission, with range 1.25-1.60 -As above Hyponatremia -baseline ~130, stable, may have new baseline of around 127 -ddx poor oral intake vs fluid overloaded vs volume constriction -improved with IVF however, kidneys not allowing further fluids -mental status intact, cont. to monitor. -May be new baseline as long as he is stable Symptomatic anemia Symptomatic anemia/thrombocytopenia Received 2 units of packed red blood cells in the ER for symptomatic anemia Hemoglobin 7.2 on admission, appropriate rise to 9.6, currently 8.4 and stable - Transfusion goal of 8 Hemoccult negative. peripheral smear neg for MDS - low iron, venofer x5 (total 1gm); recheck Hgb in 1 month - warfarin resumed. h/h stable. s/p TAVR paroxysmal atrial fibrillation - on warfarin, metoprolol - INR 2.6, goal 2.5-3.5, monitor DM II (diabetes mellitus, type II), controlled -hypoglycemic to 57 on admission, improved with D5 -D/c'd home glipizide -cont. BSG checks, on SSI. Occasionally requiring Lantus for sugars in 200's. -A1C 6.3 -Can consider initiation of SGLT or GLP-1 with f/u with pcp given glipizide discontinued; pt needed insulin for control in hospital Hypercholesterolemia -Cont. home simvastatin, consider high intensity statin in outpatient given hx of CAD Vitamin B12 deficiency (dietary) anemia -Cont. supplement BPH w urinary obs/LUTS -Cont. tamsulosin, changed to evening as taking in the morning may be contributing to part of his symptoms DVT ppx: warfarin FEN/GI: HH, DM2, 1.8L fluid restriction Code Status: DNR/DNI Dispo: Downgraded to [facility], DENIED by [facility] for SNF. Patient will need home health and home PT for discharge, talked with patient's son, Noé, who stated patient lives with and son at home. Patient's son will be able to watch while father gets strength back. (2) Hypoglycemia associated with diabetes: (3) Acute on chronic heart failure with preserved ejection fraction (HFpEF): (4) Symptomatic anemia: (5) Vitamin B12 deficiency (dietary) anemia: (6) History of heart bypass surgery: (7) Coronary artery disease: (8) Chronic heart failure with preserved ejection fraction: (9) Paroxysmal atrial fibrillation: (10) S/P TAVR (transcatheter aortic valve replacement): (11) CKD (chronic kidney disease) stage 3, GFR 30-59 ml/min: (12) Elevated troponin: (13) BPH w urinary obs/LUTS: (14) Hypertension: Admission and Anticipated Discharge Date Admission Date: October 25, 2021 Supervising Physician Co-Signing Physician Notes I personally examined the patient and verified all martinez points of history and exam, discussed case, and agree with decision making with Dr Zaavla no complaints still waiting SNF/rehab later informed this was denied, Dr. Zavala attempted [id number], which unfortunately did not result in insurance physician understanding the need for patient to have SNF for rehab, so they still denied in any way. vitals noted nad heent nc at mmm breathing unlabored no accessory muscles good effort skin no rashes no pallor icterus anemia - clinically stable. Hgb 8, hemodynamically stable. discussed outpt f/u previously. Given that insurance denied SNF, will have to try to set up the safest dispo possibleit appears this will probably be home with his son with close supervision, careful safety awareness, and home PT. Subjective Saw patient at the bedside this morning, no complaints from him at that time. Denies any shortness of breath, fevers, chills; he was eating his breakfast without issue. Later in the day I attempted a peer to peer with Dr. Becerril, however he stated despite being recommended SNF by PT, the patient did not meet requirements for SNF due to being able to walk 15 feet with rolling walker and contact guard assistance without any significant medical condition compounding his physical therapy efforts. Very unfortunate and the patient and son were disappointed by the denial from insurance. Review of Systems Constitutional: as per Subjective / HPI Physical Exam Constitutional: WD/WN, vitals as above Respiratory: normal respiratory effort, lungs clear to auscultation Cardiovascular: Rate/Rhythm: regular rate and regular rhythm Heart Sounds: normal S1 and normal S2 Extremities: + edema (2+ pitting edema. ) Gastrointestinal (Abdomen): normal bowel sounds, soft, nontender, no hepatosplenomegaly Psychiatric: A+Ox3, euthymic affect Results & Data Results & Data ([facility]) Vital Signs (Past 12 Hours) Vital Signs Temp Pulse Resp BP Pulse Ox O2 Del Method 11/06/21 20:30 Room Air 11/06/21 20:50 36.5 C 61 22 147/75 H 98 Room Air Resident Activity Tracking Resident Involvement: Resident Care Provided Care Provided: Adult Hospital Medicine
[2021-11-07] MEDS: MAGNESIUM OXIDE 400 MG TAB PO SCH (09:19)
[2021-11-07] MEDS: FOLIC ACID 1 MG TAB PO SCH (09:19)
[2021-11-07] MEDS: FINASTERIDE 5 MG TAB PO SCH (09:19)
[2021-11-07] MEDS: POLYETHYLENE (MIRALAX) 17 GM PACK PO SCH (09:19)
[2021-11-07] MEDS: CYANOCOBALAMIN (B-12) 2,500 MCG TABLET SL SCH (09:19)
[2021-11-07] MEDS: METOPROLOL SUCC 50MG EXT REL TAB PO SCH (09:19)
[2021-11-07] MEDS: amLODIPine BESYLATE 5 MG TAB PO SCH (09:19)
[2021-11-07] MEDS: INSULIN ASPART PER UNIT SC SCH ×4 (09:23→21:24)
[2021-11-07] MEDS: WARFARIN SOD 5 MG TAB PO SCH (17:25)
--- NOTE | 2021-11-07 18:13 | Billing Data ---
Date of Service November 07, 2021 Coding Level of Care Code 34109 Subseq Hosp Care Lvl 1
[2021-11-07] MEDS: SIMVASTATIN 20 MG TAB PO SCH (19:57)
[2021-11-07] MEDS: TAMSULOSIN HCL 0.4 MG CAP PO SCH (19:57)
[2021-11-08] MEDS: FOLIC ACID 1 MG TAB PO SCH (08:23)
[2021-11-08] MEDS: MAGNESIUM OXIDE 400 MG TAB PO SCH (08:23)
[2021-11-08] MEDS: METOPROLOL SUCC 50MG EXT REL TAB PO SCH (08:23)
[2021-11-08] MEDS: POLYETHYLENE (MIRALAX) 17 GM PACK PO SCH (08:23)
[2021-11-08] MEDS: CYANOCOBALAMIN (B-12) 2,500 MCG TABLET SL SCH (08:24)
[2021-11-08] MEDS: amLODIPine BESYLATE 5 MG TAB PO SCH (08:24)
[2021-11-08] MEDS: FINASTERIDE 5 MG TAB PO SCH (08:24)
[2021-11-08] MEDS: INSULIN ASPART PER UNIT SC SCH ×4 (09:16→21:26)
[2021-11-08 09:53] LABS: Hematocrit (blood only) 24.8 % (40.1-51.0); Mean Corpuscular Hemoglobin 27.9 pg (25.0-34.0); Mean Corpuscular Hgb Conc 32.3 g/dL (32.0-36.0); Mean Corpuscular Volume 86.4 fL (80.0-100.0); Mean Platelet Volume 9.6 fL (9.4-12.4); Platelet Count 91 K/uL (130-400); RDW Coefficient of Variation 18.3 % (11.5-14.5); RDW Standard Deviation 58.2 fL (36.4-46.3); Red Blood Count 2.87 M/uL (4.63-6.08); White Blood Count 5.37 K/ul (4.8-10.8)
[2021-11-08 10:22] LABS: Basophils # (auto) 0.01 K/uL (0-0.2); Basophils % (auto) 0.2 %; Eosinophils # (auto) 0.01 K/uL (0-0.50); Eosinophils % (auto) 0.2 %; Immature Granulocytes # (auto) 0.02 K/uL (0.00-0.02); Immature Granulocytes % (auto) 0.4 %; Lymphocytes # (auto) 0.28 K/uL (1.2-3.4); Lymphocytes % (auto) 5.2 %; Monocytes # (auto) 0.21 K/uL (0.24-0.82); Monocytes % (auto) 3.9 %; Neutrophils # (auto) 4.84 K/uL (1.4-6.5); Neutrophils % (auto) 90.1 %
[2021-11-08 10:26] LABS: BUN Creatinine Ratio 27.4 (10-20); Calcium 8.2 mg/dl (8.5-10.1); Est GFR (Non-African American) 36.2 ml/min; Potassium 4.8 mmol/L (3.5-5.1)
--- NOTE | 2021-11-08 14:57 | Hospitalist Progress Note ---
Date of Service November 08, 2021 Assessment & Plan (1) Generalized weakness: Plan: 86 yo male PMHX including deficiency, status post CABG, CAD, chronic HFpEF, paroxysmal atrial fibrillation, diabetes mellitus, status post TAVR, long-term anticoagulant use, status post pacemaker, CKD, aortic stenosis, BPH with LUTS, hypertension, hypercholesterolemia, and anemia presented for worsening fatigue, inability to participate with PT at home, and lethargy. Generalized weakness Multifactorial: Hypoglycemia, anemia, acute on chronic CHF PT/OT: recommend acute rehab, however denied by [employer] insurance from SNF. After CM discussed with son, patient to go to personal [place] [facility] care facility ([facility]) Acute on chronic heart failure with preserved ejection fraction (HFpEF) Elevated troponin CAD Pacemaker sec to demand ischemia secondary to anemia. Continue home metoprolol, amlodipine, statin, warfarin - Initially appeared fluid overloaded, home lasix was restarted but Cr and Na worsened. Lasix was held, half maintenance IVF was given and labs improved however pt developed SOB/overload. Cr currently at upper end of baseline which may become his new normal. Decreased lasix dose to 40mg daily (10/31). Cr and Na stable. Will likely cont. this dose on discharge. - Follows with heart clinic - monitor IOs, daily weights. CKD (chronic kidney disease) stage 3, GFR 30-59 ml/min -Creatinine 1.39 upon admission, with range 1.25-1.60 -As above Hyponatremia -baseline ~130, stable, may have new baseline of around 127 -ddx poor oral intake vs fluid overloaded vs volume constriction -improved with IVF however, kidneys not allowing further fluids -mental status intact, cont. to monitor. -May be new baseline as long as he is stable Symptomatic anemia Symptomatic anemia/thrombocytopenia Received 2 units of packed red blood cells in the ER for symptomatic anemia Hemoglobin 7.2 on admission, appropriate rise to 9.6, currently 8.0 and stable - Transfusion goal of 8 Hemoccult negative. peripheral smear neg for MDS - low iron, venofer x5 (total 1gm); recheck Hgb in 1 month - warfarin resumed. h/h stable. s/p TAVR paroxysmal atrial fibrillation - on warfarin, metoprolol - INR 2.7, goal 2.5-3.5, monitor DM II (diabetes mellitus, type II), controlled -hypoglycemic to 57 on admission, improved with D5 -D/c'd home glipizide -cont. BSG checks, on SSI. -A1C 6.3 -Can consider initiation of SGLT or GLP-1 with f/u with pcp given glipizide discontinued; pt needed insulin for control in hospital Hypercholesterolemia -Cont. home simvastatin, consider high intensity statin in outpatient given hx of CAD Vitamin B12 deficiency (dietary) anemia -Cont. supplement BPH w urinary obs/LUTS -Cont. tamsulosin, changed to evening as taking in the morning may be contributing to part of his symptoms DVT ppx: warfarin FEN/GI: HH, DM2, 1.8L fluid restriction Code Status: DNR/DNI Dispo: Downgraded to [facility], DENIED by [facility] for SNF. CM discussed with patient's son, they would prefer he go to personal [place] [facility] facility ([facility]); I will need to sign the paperwork before Thursday as Thursday is when [facility] will be available. (2) Hypoglycemia associated with diabetes: (3) Acute on chronic heart failure with preserved ejection fraction (HFpEF): (4) Symptomatic anemia: (5) Vitamin B12 deficiency (dietary) anemia: (6) History of heart bypass surgery: (7) Coronary artery disease: (8) Chronic heart failure with preserved ejection fraction: (9) Paroxysmal atrial fibrillation: (10) S/P TAVR (transcatheter aortic valve replacement): (11) CKD (chronic kidney disease) stage 3, GFR 30-59 ml/min: (12) Elevated troponin: (13) BPH w urinary obs/LUTS: (14) Hypertension: Admission and Anticipated Discharge Date Admission Date: October 25, 2021 Supervising Physician Co-Signing Physician Notes I personally examined the patient and verified all martinez points of history and exam, discussed case, and agree with decision making with Dr Zavala Resting comfortably. SNF denied, for personal care as family does not feel he would be safe at home. vitals noted nad heent nc at mmm breathing unlabored no accessory muscles good effort skin no rashes no pallor icterus anemia - clinically stable. Outpatient follow-up Given that insurance denied SNF, will have to try to set up the safest dispo possibleat this time personal care, which unfortunately means patient will likely be in the hospital until this can be arranged, as his family does not feel he is safe at home Subjective Patient seen at the bedside this morning still feeling well. Denies any shortness of breath, fevers, chills. No changes overnight. Case management talked with patient's son who was uncomfortable with sending patient home right after discharge; would instead prefer d/c to personal [place] [facility] facility - agreed on [facility], paperwork will need to be signed by physician, transport/ready by Thursday. Review of Systems Constitutional: as per Subjective / HPI Physical Exam Constitutional: WD/WN, vitals as above Respiratory: normal respiratory effort, lungs clear to auscultation Cardiovascular: Rate/Rhythm: regular rate and regular rhythm Heart Sounds: normal S1 and normal S2 Extremities: + edema (2+ pitting edema. ) Gastrointestinal (Abdomen): normal bowel sounds, soft, nontender, no hepatosplenomegaly Psychiatric: A+Ox3, euthymic affect Results & Data Results & Data ([facility]) Vital Signs (Past 12 Hours) Vital Signs Temp Pulse Resp BP Pulse Ox O2 Del Method 11/08/21 14:34 36.4 C L 72 16 145/76 H 99 11/08/21 07:33 Room Air 11/08/21 07:40 36.3 C L 72 16 147/64 H 98 Resident Activity Tracking Resident Involvement: Resident Care Provided Care Provided: Adult Hospital Medicine
[2021-11-08] MEDS: WARFARIN SOD 2.5 MG TAB PO SCH (15:25)
--- NOTE | 2021-11-08 17:11 | Billing Data ---
Date of Service November 08, 2021 Coding Level of Care Code 16557 Subseq Hosp Care Lvl 1
[2021-11-08] MEDS: SIMVASTATIN 20 MG TAB PO SCH (20:24)
[2021-11-08] MEDS: TAMSULOSIN HCL 0.4 MG CAP PO SCH (20:24)
--- NOTE | 2021-11-09 06:44 | Hospitalist Progress Note ---
Date of Service November 09, 2021 Assessment & Plan (1) Generalized weakness: Plan: 86 yo male PMHX including deficiency, status post CABG, CAD, chronic HFpEF, paroxysmal atrial fibrillation, diabetes mellitus, status post TAVR, long-term anticoagulant use, status post pacemaker, CKD, aortic stenosis, BPH with LUTS, hypertension, hypercholesterolemia, and anemia presented for worsening fatigue, inability to participate with PT at home, and lethargy. Generalized weakness Multifactorial: Hypoglycemia, anemia, acute on chronic CHF PT/OT: recommend acute rehab, however denied by [employer] insurance from SNF. After CM discussed with son, patient to go to personal retirement ([facility]) Acute on chronic heart failure with preserved ejection fraction (HFpEF)/Elevated troponin/CAD/Pacemaker sec to demand ischemia secondary to anemia. Continue home metoprolol, amlodipine, statin, warfarin - Initially appeared fluid overloaded, home lasix was restarted but Cr and Na worsened. Lasix was held, half maintenance IVF was given and labs improved however pt developed SOB/overload. Cr currently at upper end of baseline which may become his new normal. Decreased lasix dose to 40mg daily (10/31). Cr and Na stable. Will likely cont. this dose on discharge. - Follows with heart clinic - monitor IOs, daily weights. CKD (chronic kidney disease) stage 3, GFR 30-59 ml/min -Creatinine 1.39 upon admission, with range 1.25-1.60 -As above Hyponatremia -baseline ~130, stable, may have new baseline of around 127 -ddx poor oral intake vs fluid overloaded vs volume constriction -improved with IVF however, kidneys not allowing further fluids -mental status intact, cont. to monitor. -May be new baseline as long as he is stable Symptomatic anemia Symptomatic anemia/thrombocytopenia Received 2 units of packed red blood cells in the ER for symptomatic anemia Hemoglobin 7.2 on admission, appropriate rise to 9.6, currently 8.0 and stable - Transfusion goal of 8 Hemoccult negative. peripheral smear neg for MDS - low iron, venofer x5 (total 1gm); recheck Hgb in 1 month - warfarin resumed. h/h stable. s/p TAVR paroxysmal atrial fibrillation - on warfarin, metoprolol - INR 2.7, goal 2.5-3.5, monitor DM II (diabetes mellitus, type II), controlled -hypoglycemic to 57 on admission, improved with D5 -D/c'd home glipizide -cont. BSG checks, on SSI. -A1C 6.3 -Can consider initiation of SGLT or GLP-1 with f/u with pcp given glipizide discontinued; pt needed insulin for control in hospital Hypercholesterolemia -Cont. home simvastatin, consider high intensity statin in outpatient given hx of CAD Vitamin B12 deficiency (dietary) anemia -Cont. supplement BPH w urinary obs/LUTS -Cont. tamsulosin, changed to evening as taking in the morning may be contributing to part of his symptoms DVT ppx: warfarin FEN/GI: HH, DM2, 1.8L fluid restriction Code Status: DNR/DNI [facility]. CM discussed with patient's son, they would prefer he go to personal retirement ([facility]); I will need to sign the paperwork before Thursday as Thursday is when [facility] will be available. (2) Hypoglycemia associated with diabetes: (3) Acute on chronic heart failure with preserved ejection fraction (HFpEF): (4) Symptomatic anemia: (5) Vitamin B12 deficiency (dietary) anemia: (6) History of heart bypass surgery: (7) Coronary artery disease: (8) Chronic heart failure with preserved ejection fraction: (9) Paroxysmal atrial fibrillation: (10) S/P TAVR (transcatheter aortic valve replacement): (11) CKD (chronic kidney disease) stage 3, GFR 30-59 ml/min: (12) Elevated troponin: (13) BPH w urinary obs/LUTS: (14) Hypertension: Admission and Anticipated Discharge Date Admission Date: October 25, 2021 Supervising Physician Co-Signing Physician Notes I personally examined the patient and verified all martinez points of history and exam, discussed case, and agree with decision making with Dr Zavala Resting comfortably. for [facility] thursday no new complaints no needs vitals noted nad heent nc at mmm breathing unlabored no accessory muscles good effort skin no rashes no pallor icterus anemia - clinically stable. Outpatient follow-up Given that insurance denied SNF, [facility] - fortunately thursday Subjective Saw patient this morning without any complaints, patient feels same as yesterday; waiting for placement to [facility] personal care - will be available Thursday. Review of Systems Constitutional: as per Subjective / HPI Physical Exam Constitutional: WD/WN, vitals as above Not in any acute distress, sitting in chair comfortbaly. Eyes: PERRL, conjunctivae normal, anicteric sclerae Respiratory: normal respiratory effort Cardiovascular: Extremities: + edema (2+ pitting edema. ) Psychiatric: A+Ox3, euthymic affect Results & Data Results & Data ([facility]) Vital Signs (Past 12 Hours) Vital Signs Temp Pulse Resp BP Pulse Ox O2 Del Method 11/08/21 19:52 Room Air 11/08/21 23:44 36.3 C L 60 16 131/67 98 Room Air Resident Activity Tracking Resident Involvement: Resident Care Provided Care Provided: Adult Hospital Medicine
[2021-11-09 09:03] LABS: INR 2.7 (0.9-1.1); Prothrombin Time 27.7 Seconds (9.0-12.0)
[2021-11-09] MEDS: INSULIN ASPART PER UNIT SC SCH ×4 (09:51→20:40)
[2021-11-09] MEDS: FOLIC ACID 1 MG TAB PO SCH (09:56)
[2021-11-09] MEDS: METOPROLOL SUCC 50MG EXT REL TAB PO SCH (09:56)
[2021-11-09] MEDS: MAGNESIUM OXIDE 400 MG TAB PO SCH (09:56)
[2021-11-09] MEDS: FINASTERIDE 5 MG TAB PO SCH (09:56)
[2021-11-09] MEDS: amLODIPine BESYLATE 5 MG TAB PO SCH (09:56)
[2021-11-09] MEDS: CYANOCOBALAMIN (B-12) 2,500 MCG TABLET SL SCH (09:56)
[2021-11-09] MEDS: POLYETHYLENE (MIRALAX) 17 GM PACK PO SCH (09:57)
--- NOTE | 2021-11-09 15:11 | Billing Data ---
Date of Service November 09, 2021 Coding Level of Care Code 47112 Subseq Hosp Care Lvl 1
[2021-11-09] MEDS: WARFARIN SOD 5 MG TAB PO SCH (16:02)
[2021-11-09] MEDS ORDERED: LOPERAMIDE HCL 2 MG CAP PO PRN (16:44)
[2021-11-09] MEDS: TAMSULOSIN HCL 0.4 MG CAP PO SCH (20:40)
[2021-11-09] MEDS: SIMVASTATIN 20 MG TAB PO SCH (20:40)
--- NOTE | 2021-11-10 06:39 | Hospitalist Progress Note ---
Date of Service November 10, 2021 Assessment & Plan (1) Generalized weakness: Plan: 86 yo male PMHX including deficiency, status post CABG, CAD, chronic HFpEF, paroxysmal atrial fibrillation, diabetes mellitus, status post TAVR, long-term anticoagulant use, status post pacemaker, CKD, aortic stenosis, BPH with LUTS, hypertension, hypercholesterolemia, and anemia presented for worsening fatigue, inability to participate with PT at home, and lethargy. Generalized weakness Multifactorial: Hypoglycemia, anemia, acute on chronic CHF PT/OT: recommend acute rehab, however denied by [employer] insurance from SNF. After CM discussed with son, patient to go to personal fpc ([facility]) Acute on chronic heart failure with preserved ejection fraction (HFpEF)/Elevated troponin/CAD/Pacemaker sec to demand ischemia secondary to anemia. Continue home metoprolol, amlodipine, statin, warfarin - Initially appeared fluid overloaded, home lasix was restarted but Cr and Na worsened. Lasix was held, half maintenance IVF was given and labs improved however pt developed SOB/overload. Cr currently at upper end of baseline which may become his new normal. Decreased lasix dose to 40mg daily (10/31). Cr and Na stable. Will likely cont. this dose on discharge. - Follows with heart clinic - monitor IOs, daily weights. CKD (chronic kidney disease) stage 3, GFR 30-59 ml/min -Creatinine 1.39 upon admission, with range 1.25-1.60 -As above Hyponatremia -baseline ~130, stable, may have new baseline of around 127 -ddx poor oral intake vs fluid overloaded vs volume constriction -improved with IVF however, kidneys not allowing further fluids -mental status intact, cont. to monitor. -May be new baseline as long as he is stable Symptomatic anemia Symptomatic anemia/thrombocytopenia Received 2 units of packed red blood cells in the ER for symptomatic anemia Hemoglobin 7.2 on admission, appropriate rise to 9.6, currently 8.0 and stable - Transfusion goal of 8 Hemoccult negative. peripheral smear neg for MDS - low iron, venofer x5 (total 1gm); recheck Hgb in 1 month - warfarin resumed. h/h stable. s/p TAVR paroxysmal atrial fibrillation - on warfarin, metoprolol - INR 2.6, goal 2.5-3.5, monitor DM II (diabetes mellitus, type II), controlled -hypoglycemic to 57 on admission, improved with D5 -D/c'd home glipizide -cont. BSG checks, on SSI. -A1C 6.3 -Can consider initiation of SGLT or GLP-1 with f/u with pcp given glipizide discontinued; pt needed insulin for control in hospital Hypercholesterolemia -Cont. home simvastatin, consider high intensity statin in outpatient given hx of CAD Vitamin B12 deficiency (dietary) anemia -Cont. supplement BPH w urinary obs/LUTS -Cont. tamsulosin, changed to evening as taking in the morning may be contributing to part of his symptoms DVT ppx: warfarin FEN/GI: HH, DM2, 1.8L fluid restriction Code Status: DNR/DNI [facility] for [facility]. CM discussed with patient's son, they would prefer he go to personal fpc ([facility]); I will need to sign the paperwork before Thursday as Thursday is when [facility] will be available. (2) Hypoglycemia associated with diabetes: (3) Acute on chronic heart failure with preserved ejection fraction (HFpEF): (4) Symptomatic anemia: (5) Vitamin B12 deficiency (dietary) anemia: (6) History of heart bypass surgery: (7) Coronary artery disease: (8) Chronic heart failure with preserved ejection fraction: (9) Paroxysmal atrial fibrillation: (10) S/P TAVR (transcatheter aortic valve replacement): (11) CKD (chronic kidney disease) stage 3, GFR 30-59 ml/min: (12) Elevated troponin: (13) BPH w urinary obs/LUTS: (14) Hypertension: Admission and Anticipated Discharge Date Admission Date: October 25, 2021 Supervising Physician Co-Signing Physician Notes I personally examined the patient and verified all martinez points of history and exam, discussed case, and agree with decision making with Dr Zavala Resting comfortably. for [facility] tomorrow, no new complaints no needs vitals noted nad heent nc at mmm breathing unlabored no accessory muscles good effort skin no rashes no pallor icterus anemia - clinically stable. Outpatient follow-up Given that insurance denied SNF, [facility] - fortunately thursday Subjective Patient seen at the bedside this morning without any complaints. No change since yesterday, feeling well and ready to go to [facility] tomorrow. Review of Systems Constitutional: as per Subjective / HPI Physical Exam Constitutional: WD/WN, vitals as above Eyes: PERRL, conjunctivae normal, anicteric sclerae Respiratory: normal respiratory effort Psychiatric: A+Ox3, euthymic affect Results & Data Results & Data ([facility]) Vital Signs (Past 12 Hours) Vital Signs Temp Pulse Resp BP Pulse Ox O2 Del Method 11/09/21 19:34 Room Air 11/09/21 23:12 36.9 C 63 20 139/60 96 Room Air Resident Activity Tracking Resident Involvement: Resident Care Provided Care Provided: Adult Hospital Medicine
[2021-11-10 07:57] LABS: INR 2.6 (0.9-1.1); Prothrombin Time 26.6 Seconds (9.0-12.0)
[2021-11-10] MEDS: POLYETHYLENE (MIRALAX) 17 GM PACK PO SCH (09:12)
[2021-11-10] MEDS: METOPROLOL SUCC 50MG EXT REL TAB PO SCH (09:12)
[2021-11-10] MEDS: CYANOCOBALAMIN (B-12) 2,500 MCG TABLET SL SCH (09:13)
[2021-11-10] MEDS: amLODIPine BESYLATE 5 MG TAB PO SCH (09:13)
[2021-11-10] MEDS: FOLIC ACID 1 MG TAB PO SCH (09:13)
[2021-11-10] MEDS: MAGNESIUM OXIDE 400 MG TAB PO SCH (09:13)
[2021-11-10] MEDS: FINASTERIDE 5 MG TAB PO SCH (09:13)
[2021-11-10] MEDS: INSULIN ASPART PER UNIT SC SCH ×4 (09:14→20:56)
[2021-11-10] MEDS: WARFARIN SOD 2.5 MG TAB PO SCH (16:30)
--- NOTE | 2021-11-10 18:43 | Billing Data ---
Date of Service November 10, 2021 Coding Level of Care Code 13913 Subseq Hosp Care Lvl 1
[2021-11-10] MEDS: TAMSULOSIN HCL 0.4 MG CAP PO SCH (19:22)
[2021-11-10] MEDS: SIMVASTATIN 20 MG TAB PO SCH (19:23)
[2021-11-11 06:35] LABS: INR 2.6 (0.9-1.1); Prothrombin Time 26.4 Seconds (9.0-12.0)
[2021-11-11] MEDS: CYANOCOBALAMIN (B-12) 2,500 MCG TABLET SL SCH (07:49)
[2021-11-11] MEDS: FINASTERIDE 5 MG TAB PO SCH (07:50)
[2021-11-11] MEDS: METOPROLOL SUCC 50MG EXT REL TAB PO SCH (07:50)
[2021-11-11] MEDS: FOLIC ACID 1 MG TAB PO SCH (07:50)
[2021-11-11] MEDS: amLODIPine BESYLATE 5 MG TAB PO SCH (07:50)
[2021-11-11] MEDS: POLYETHYLENE (MIRALAX) 17 GM PACK PO SCH ×2 (07:50→07:53)
[2021-11-11] MEDS: MAGNESIUM OXIDE 400 MG TAB PO SCH (07:50)
[2021-11-11] MEDS: INSULIN ASPART PER UNIT SC SCH ×2 (09:11→13:02)
--- NOTE | 2021-11-11 10:36 | Discharge Summary ---
Date of Service November 11, 2021 Admission HPI Per Admitting Provider B12The patient is an 86-year-old male with a past medical history including deficiency, status post CABG, CAD, chronic HFpEF, paroxysmal atrial fibrillation, diabetes mellitus, status post TAVR, long-term anticoagulant use, status post pacemaker, CKD, aortic stenosis, BPH with LUTS, hypertension, hypercholesterolemia, and anemia. The patient is brought to the emergency department after been seen 3 days previously with worsening symptoms. Significant abnormal laboratories: Hemoglobin 7.2, hematocrit 22.4 platelets 93, sodium 130, potassium 3.3, glucose 69, creatinine 1.39, INR 2.4, total bilirubin 1.3, troponin 35.3, albumin 3.1. COVID-[address] head without contrast negative for acute event. 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 Small vessel disease. Right parietal jose hole. CTA head and neck negative for acute event Admission Exam Per Admitting Provider The patient is awake, alert and oriented 3, normocephalic and atraumatic, lying in bed and in no acute distress. HEENT--PERRL, EOMI, mucous membranes and oropharynx normal Neck--supple. No JVD. No bruits. Thyroid normal, trachea midline, no adenopathy. Heart--normal S1 and S2. No murmurs, rubs or gallops. Lungs--clear bilaterally, no respiratory distress, no accessory muscle use. Abdomen--normal bowel sounds and soft. Nontender. Nondistended, no hernias or masses, no organomegaly. Extremities--no cyanosis or clubbing. 2+ bilateral pretibial pitting edema. Dermatologic--normal skin turgor, normal color, no abnormal lymph nodes, no rash. Neurologic--cranial nerves II through XII grossly intact. Rheumatologic--normal range of motion. Psychiatric--normal affect. Principal Diagnosis Weakness, anemia, hypoglycemia Discharge Exam Constitutional WD/WN, vitals as above Eyes PERRL, conjunctivae normal, anicteric sclerae Respiratory normal respiratory effort, lungs clear to auscultation Cardiovascular RRR, no murmur, no edema Gastrointestinal (Abdomen) normal bowel sounds, soft, nontender, no hepatosplenomegaly Psychiatric A+Ox3, euthymic affect Discharge Data Allergies Allergy/AdvReac Type Severity Reaction Status Date / Time No Known Allergies Allergy Mild NONE Verified 10/25/21 01:23 Consultations 10/25/21 04:12 ED Decision to Admit Stat 10/25/21 16:28 Consult Cardiology Routine Ordered Studies 10/25/21 01:48 CT angio head w con Urgent IMPRESSION: There is no hemorrhage, mass effect, or evidence of acute territorial ischemia by CT criteria. CT angio neck with con Urgent IMPRESSION: Unremarkable CT angiogram of the neck. CT head/brain wo con Urgent IMPRESSION: 1. No central vessel occlusion. No intracranial aneurysm. 2. Extensive calcified plaque within bilateral cavernous carotids without significant stenosis. Hospital Course (1) Generalized weakness: 86 yo male PMHX including deficiency, status post CABG, CAD, chronic HFpEF, paroxysmal atrial fibrillation, diabetes mellitus, status post TAVR, long-term anticoagulant use, status post pacemaker, CKD, aortic stenosis, BPH with LUTS, hypertension, hypercholesterolemia, and anemia presented for worsening fatigue, inability to participate with PT at home, and lethargy. Generalized weakness Multifactorial: Hypoglycemia, anemia, acute on chronic CHF PT/OT: recommend acute rehab,however denied by [employer] insurance from SNF. After CM discussed with son, patient to go to personal long term ([facility]) Hyponatremia -baseline ~130, stable, may have new baseline of around 127 -ddx poor oral intake vs fluid overloaded vs volume constriction -mental status remained in tact, sodium remained stable. -May be new baseline as long as he is stable HFpEF/Elevated troponin/CAD/Pacemaker Cardiology consulted: -No additional workup needed for elevated trop (peaked at 139). -no symptoms to suggest coronary ischemia or insufficiency. Continue home medications. -HFpEF: overall well compensated, recommend at least daily dose of Lasix. - Initially appeared fluid overloaded, home lasix was restarted but Cr and Na worsened. Lasix was held, half maintenance IVF was given and labs improved however pt developed SOB/overload. Cr currently at upper end of baseline which may become his new normal. Decreased lasix dose to 40mg daily (10/31). Cr and Na stable. - Changed patient's home Lasix 40mg BID to Daily. Symptomatic anemia Symptomatic anemia/thrombocytopenia Received 2 units of packed red blood cells in the ER for symptomatic anemia Hemoccult negative, peripheral smear neg for MDS Hemoglobin 7.2 on admission, appropriate rise to 9.6, stayed stable around 8 throughout past week. - low iron, venofer x5 (total 1gm); recheck Hgb in 1 month - warfarin resumed. DM II (diabetes mellitus, type II), controlled -hypoglycemic to 57 on admission, improved with D5. A1c 6.3. -D/c'd home glipizide given hypoglycemia side effect. -Can consider initiation of SGLT or GLP-1 on f/u with pcp given glipizide discontinued; pt needed insulin for control in hospital (2) Hypoglycemia associated with diabetes: (3) Symptomatic anemia: (4) Vitamin B12 deficiency (dietary) anemia: (5) History of heart bypass surgery: (6) Coronary artery disease: (7) Chronic heart failure with preserved ejection fraction: (8) Paroxysmal atrial fibrillation: (9) S/P TAVR (transcatheter aortic valve replacement): (10) CKD (chronic kidney disease) stage 3, GFR 30-59 ml/min: (11) Elevated troponin: (12) BPH w urinary obs/LUTS: (13) Hypertension: Total Time Total Time Spent Total Time Spent (In Minutes): Please see attending attestation. Discharge Plan Discharge Items Patient Disposition: Personal Senior Living Reason For Visit: SYMPTOMATIC ANEMIA, NSTEMI, HYPOGLYCEMIA Discharge Diagnosis: Weakness, hypoglycemia, anemia Activity: Per Instructions section Non-emergency contact: Primary Care Provider Call non-emergency contact if: your symptoms worsen, your pain is worsening and your temperature is above 101 Follow-up/Referrals: Shikha Jarquin MD [Primary Care Provider] - 11/19/21 11:00 am (Appointment will be with Izabella Brand PA-C) Diet: Regular Addtl Attending Provider Instructions: A discharge summary will be sent to your primary care physician to ensure continuity of care. You were seen in the hospital for new onset of weakness. You were found to have a low glucose of 57 and a hemoglobin of 7.2. You were given a couple units of packed red blood cells and your glipizide medication was held. You had good improvement to your weakness over the course of your hospital stay and although your hemoglobin remained low at around 8-9, the hemoglobin was stable. We tried to get you over to a prison facility for physical therapy rehabilitation however the insurance denied this. You and your family opted to have you go to [facility] after discharge. Please work with them to make sure you have adequate physical therapy to get you back up to strength and speed. We will also be stopping your glipizide medication due to the low blood sugar side effect that may have been contributing to your weakness. Please be sure to follow up with your primary care doctor in the next few days to week to decide what other class of diabetes medications you can use. Follow-up: * You should be seen by your primary physician within the next week. Medications: Your medication list has been reviewed and reconciled upon discharge to ensure accuracy and continuity of care. An updated list of all your medications is included with your hospital discharge paperwork. Please review this list closely, and make note of any changes. * We will be stopping the glipizide medication due to low blood sugars. Please follow up with your primary care doctor within the next week as above for alternative medications to use for your diabetes. * You will be taking your Lasix 40mg only once a day upon discharge just like you have been in the hospital. Take your medications as instructed; do not skip a dose of your medicines. Make sure all of your doctors know every medicine you are taking (including o [id number] medicines, vitamins, and supplements). let your primary care provider know before taking any new medicines because some of these may interact with your current medications, or may make your symptoms worse. CONTACT YOUR PRIMARY CARE PROVIDER if you experience any of the following: * Fevers or shaking chills * Shortness of breath not relieved by inhalers, fainting * Sudden abdominal distension not relieved by catheterization. * Difficulty following your treatment plan, or difficulty taking medications CALL 911 OR GO TO THE EMERGENCY DEPARTMENT if you experience any of the following: * Sudden, severe abdominal pain or nausea/vomiting * Severe chest pain, or chest pain that radiates (moves) to your jaw or arm * Sudden, severe shortness of breath or difficulty breathing It was was our pleasure taking care of you here at [facility] . Thank you for allowing us to participate in your care. Pending Studies at Discharge: No Stand-Alone Forms: My [facility] [employer] Endowment, Smoking Cessation Skilled Items Patient informed of condition?: Yes DNR: Yes Discharge Level of Care: Other Communicable Disease: No Discharge Prognosis: Stable Lines: None Urinary Catheter: No Medications and DC Order Prescriptions: Continued triamcinolone acetonide 0.1 % ointment 1 applic TOPICAL BID folic acid 1 mg Tablet 1 mg PO QAM Qty: 30 0RF metoprolol succinate 50 mg tablet extended release 24 hr 50 mg PO QAM tamsulosin 0.4 mg capsule 0.4 mg PO QAM simvastatin 20 mg tablet 20 mg PO HS finasteride 5 mg tablet 5 mg PO QAM amlodipine 5 mg tablet 5 mg PO QAM amoxicillin 500 mg tablet 2,000 mg PO DIRECTED PRN (Reason: 1 HOUR PRIOR TO DENTAL PROCEDURES.) warfarin 5 mg tablet See Rx Instructions .ROUTE .COMPLEX Protocol: Dose Management Condition: Thursday Dose/Route: 2.5 mg Instruction: 0.5 x 5 mg tablets Condition: Thursday Dose/Route: 5 mg Instruction: 1 x 5 mg tablet Condition: Thursday Dose/Route: 5 mg Instruction: 1 x 5 mg tablet Condition: Thursday Dose/Route: 5 mg Instruction: 1 x 5 mg tablet Condition: Dose/Route: 2.5 mg Instruction: 0.5 x 5 mg tablets Condition: Thursday Dose/Route: 5 mg Instruction: 1 x 5 mg tablet Condition: Thursday Dose/Route: 5 mg Instruction: 1 x 5 mg tablet Protocol Text: Adjustment Start Date: Thursday10/14/21 INR Value: 1.9 INR Date: 10/14/21 Recheck Date: 10/28/21 Rx Instructions: 5 mg orally; TAKES 5 MG THU, , , & THU. TAKES 2.5 MG ON THU, THU, & THU. TAKES IN EVENING. cyanocobalamin (vitamin B-12) 5,000 mcg capsule 5,000 mcg PO QAM Changed furosemide 40 mg tablet 40 mg PO DAILY Qty: 60 0RF Discontinued glipizide 10 mg tablet 20 mg PO BID Discharge Orders: Discharge Order (Routine); Ordered 11/11/21 Ordered By: Mateusz Stanley/Other Patient Handouts: Hypoglycemia (Low Blood Sugar) Admission Data Admit Date/Time: 10/25/21 05:11 Attending Provider: Brit Rich Admit Provider: Jaison Aguirre Primary Care Provider: Shikha Jarquin Other Providers: Debbi Osman [facility] ; [facility] ; Ramón Lopez ; Jaison Aguirre ; Dinh Cuba ; Pj Watkins ; Miky Jackman ; Saud Bolton ; Antwan Mckeon ; Renzo Bolden Jr ; Scooter Crowley ; Carrol Arredondo ; Sapphire Lugo ; Vish Holt ; Cali Rodriguez ; Phil Miller ; Christina Albert ; Yi Scott ; Julito Griffin ; Alistair Henao ; Randall Herbert ; Saud Bedolla V. ; Lamin Saini Other Interventions: Discharge Summary Assessment (RN) Last Done: 11/11/21 10:38 Supervising Physician Co-Signing Physician Notes Resident Physician Supervision Note: I independently interviewed and examined the patient and verified the martinez history and physical, reviewed labs and image studies and agree with resident findings and care plan. Resident Activity Tracking Resident Involvement: Resident Care Provided Care Provided: Adult [facility] Medicine
== END 2021-11-11 13:19 | disposition home or self-care (01) ==
LOC: ED 01:02 → SUATTDRO 05:11 → 2S 05:11 → INTOOBSV 05:11 → 2S 07:20 → 3N 11-03 13:23

== ENCOUNTER 2021-11-20 14:17 | Inpatient (IN) ==
--- NOTE | 2021-11-20 14:26 | Emergency Department Note ---
Impression & Plan Osteomyelitis, Anemia, Weakness, MARCO (acute kidney injury) ED Provider Note NAME: CHERYL DURHAM AGE: 86 SEX: M : 1935 ARRIVES VIA: Ambulance INFORMANT: Patient ED PROVIDER(S): Lamin Guido DO CHIEF COMPLAINT: Infection on his right toes HPI: Patient is an 86-year-old male with pressure ulcers on his buttocks as well as an infection/diabetic ulcer on his right toe, history of CAD, CHF, TAVR, A. fib on warfarin who presents to the ER for right first and second toe infections referred in by wound care clinic. Patient notes he has had pain there for several weeks to a months. Notes that the pain has been getting worse as well as the wound. Denies any headache or change in vision. No fevers or chills. No chest pain or shortness of breath. No belly pain, nausea, vomiting, or diarrhea. Admits to chronic swelling of the lower extremities. ROS: See above HPI for pertinent positives & negatives. A total of 10 systems reviewed and were otherwise negative. PAST MEDICAL HISTORY:See Below PAST SURGICAL HISTORY:See Below FAMILY HISTORY:See Below SOCIAL HISTORY:See Below HOME MEDICATIONS:See Below ALLERGIES:See Below VITALS:See Below PHYSICAL EXAMINATION: GENERAL: Sitting up in bed, alert, well appearing, well nourished, no distress, non-toxic EYE EXAM: normal conjunctiva. OROPHARYNX: no exudate, no erythema, lips, buccal mucosa, and tongue normal and mucous membranes are moist NECK: supple, no nuchal rigidity, no adenopathy, non-tender LUNGS: Clear to auscultation. Normal chest wall mechanics HEART: no murmurs, S1 normal and S2 normal ABDOMEN: abdomen soft, non-tender, normo-active bowel sounds, no masses, no rebound or guarding. UPPER EXTREMITIES: upper extremities are grossly normal. LOWER EXTREMITIES: Right lower extremity first toe is erythematous and second toe medial aspect which tracks down to the muscle NEURO EXAM: Normal sensorium, cranial nerves II-XII grossly intact, normal speech, no gross weakness of arms, no gross weakness of legs. MEDICAL DECISION MAKING: Patient is an 86-year-old male who presents the ER referred in by wound care clinic for 2 different infections 1 which was staph on his foot and his gluteus and Enterococcus. IV was established blood work was obtained. Labs show no significant leukocytosis. Mild anemia at 6.9 down from baseline of 7.5 to 8. BMP with creatinine of 3.2 up from a baseline of 1.6. LFTs were unremarkable as well as bilirubin. Lipase was normal. UA was clean. X-ray of the foot shows osteo-. Patient was given IV daptomycin. He was updated bedside discussed with hospitalist admitted for further work-up. Triage Nursing notes reviewed. Limited review of prior medical records performed Vital Signs: reviewed and remarkable for no significant abnormalities Differential diagnosis: Cellulitis, abscess, MRSA infection, DVT, necrotizing fasciitis, dermatitis, drug eruption, allergic reaction, as well as other pathologies. ER treatment provided: See below Diagnostics interpreted by me: ECG: none Cardiac Monitoring: An order was placed for continuous cardiac monitoring. The monitor shows a rate of 70 with sinus rhythm. Laboratory studies: As stated above and show below. Imaging studies: X-rays of the foot show osteomyelitis Consultation(s): Discussed with kolby self for further evaluation Procedures: none Critical Care: None Past Med/Surg History Medical History Admitted to intensive care unit Anemia Anemia Anemia Anticoagulant long-term use Aortic stenosis BPH w urinary obs/LUTS Breath shortness CAD (coronary atherosclerotic disease) Chronic heart failure with preserved ejection fraction Colon cancer Coronary artery disease Dark stools Electrolyte abnormality Elevated troponin HTN (hypertension) Hypercholesterolemia Hypertension Hypoglycemia associated with diabetes Hypoxia Lower extremity edema Paroxysmal atrial fibrillation Subdural hematoma Vitamin B12 deficiency (dietary) anemia Weakness Surgical History H/O heart bypass surgery History of heart bypass surgery History of partial colectomy S/P TAVR (transcatheter aortic valve replacement) Status post evacuation of subdural hematoma Family History Other Family history non-contributory Social History Smoking Status: Never smoker Tobacco Type: Cigarettes Second Hand Exposure: No; Hx Alcohol Use: No Hx Substance Use: No Preferred Language: Luxembourger Communication Ability: Effective Director Mission Required: No Beliefs That Will Affect Care: None marital status: Current Living Situation: Family current occupational status: employed and retired How many Children do You have: 3 Feels Safe at Home: Yes Assistive Devices: Cane and Wheelchair Allergies Allergies Allergy/AdvReac Type Severity Reaction Status Date / Time No Known Allergies Allergy Mild NONE Verified 11/20/21 15:40 Home Meds Home Medications Medication Instructions Recorded Confirmed finasteride 5 mg tablet 5 mg PO QAM 01/17/21 11/20/21 metoprolol succinate 50 mg 50 mg PO QAM 01/17/21 11/20/21 tablet,extended release 24 hr simvastatin 20 mg tablet 20 mg PO HS 01/17/21 11/20/21 tamsulosin 0.4 mg capsule 0.4 mg PO QAM 01/17/21 11/20/21 triamcinolone acetonide 0.1 % 1 applic topical BID Right Leg 10/01/21 11/20/21 topical ointment Wound amlodipine 5 mg tablet 5 mg PO QAM 10/25/21 11/20/21 amoxicillin 500 mg tablet 2,000 mg PO DIRECTED PRN 1 HOUR 10/25/21 11/20/21 PRIOR TO DENTAL PROCEDURES. cyanocobalamin (vitamin B-12) 5,000 mcg PO QAM 10/25/21 11/20/21 5,000 mcg capsule warfarin 5 mg tablet See Rx Instructions .Route .COMPLEX 10/25/21 11/20/21 glipizide 5 mg tablet 5 mg PO BID 11/18/21 11/20/21 Previous Rx's Medication Instructions Recorded folic acid 1 mg tablet 1 mg PO QAM #30 tabs 10/07/21 furosemide 40 mg tablet 40 mg PO DAILY #60 tabs 11/11/21 Results & Data (ED) Vital Signs Vital Signs - 24 hr 11/20/21 14:24 11/20/21 14:29 11/20/21 15:00 Temperature 36.5 C Temperature Source Oral Pulse Rate 75 Pulse Rate [Apical] 67 Respiratory Rate 20 16 Respiratory Effort / Characteristics Non-Labored Respiratory Depth Normal Respiratory Pattern Regular Blood Pressure 133/62 Blood Pressure [Left Arm] 133/62 Blood Pressure Mean 85 Blood Pressure Mean [Left Arm] 85 Pulse Oximetry 93 95 Oxygen Delivery Method Room Air Room Air Oxygen Flow Rate Sepsis Recent Fever Within 48 Hours No Sepsis New/Unexplained Change in Mental Status N/A Sepsis Action Taken by Nursing No Action Required 11/20/21 16:19 11/20/21 16:19 11/20/21 16:20 Temperature Temperature Source Pulse Rate Pulse Rate [Apical] 76 Respiratory Rate 18 Respiratory Effort / Characteristics Respiratory Depth Respiratory Pattern Blood Pressure Blood Pressure [Left Arm] 133/62 Blood Pressure Mean Blood Pressure Mean [Left Arm] 85 Pulse Oximetry 88 L 94 92 Oxygen Delivery Method Nasal Cannula Nasal Cannula Oxygen Flow Rate 4 4 Sepsis Recent Fever Within 48 Hours Sepsis New/Unexplained Change in Mental Status Sepsis Action Taken by Nursing Laboratory Data Result diagrams: 11/20/21 14:45 11/20/21 14:45 Lab Results 11/20/21 11/20/21 11/20/21 Range/Units 14:35 14:45 14:45 WBC 5.08 (4.8-10.8) K/ul RBC 2.31 L (4.63-6.08) M/uL Hgb 6.8 L* (14.0-18.0) g/dl Hct 21.0 L (40.1-51.0) % MCV 90.9 (80.0-100.0) fL MCH 29.4 (25.0-34.0) pg MCHC 32.4 (32.0-36.0) g/dL RDW Std Deviation 67.0 H (36.4-46.3) fL RDW Coeff of Jose A 20.1 H (11.5-14.5) % Plt Count 65 L (130-400) K/uL MPV 9.4 (9.4-12.4) fL Immature Gran % (Auto) 1.0 % Neut % (Auto) 87.8 % Lymph % (Auto) 6.7 % [place] % (Auto) 3.9 % Eos % (Auto) 0.4 % Baso % (Auto) 0.2 % Reticulocyte % (Auto) (0.5-2.0) % Neut # (Auto) 4.46 (1.4-6.5) K/uL Lymph # (Auto) 0.34 L (1.2-3.4) K/uL [place] # (Auto) 0.20 L (0.24-0.82) K/uL Eos # (Auto) 0.02 (0-0.50) K/uL Baso # (Auto) 0.01 (0-0.2) K/uL Reticulocyte # (0.02-0.10) 10^6/uL Immature Gran # (Auto) 0.05 H (0.00-0.02) K/uL Absolute Nucleated RBC 0.00 (0-0) K/uL Nucleated RBC % (auto) 0.0 % Polychromasia 1+ Anisocytosis Present Acanthocytes (Spur) 1+ Sodium 132 L (136-145) mmol/L Potassium 4.0 (3.5-5.1) mmol/L Chloride 101 (98-107) mmol/L Carbon Dioxide 22 (21-32) mmol/L Anion Gap 9 (3-11) BUN 71 H (6-23) mg/dl Creatinine 3.26 H (0.6-1.4) mg/dl Est Cr Clr Drug Dosing 17.5 ml/min Est GFR ( Amer) 18.8 ml/min Est GFR (Non-Af Amer) 16.3 ml/min BUN/Creatinine Ratio 21.8 H (10-20) Glucose 218 H (70-99(Fasting)) mg/dl Calcium 7.6 L (8.5-10.1) mg/dl Iron (35-175) mcg/dl TIBC (250-450) mcg/dl Unsaturated IBC (155-355) mcg/dl Transferrin % Sat (20-50) % Ferritin (8-388) ng/ml Total Bilirubin 1.3 H (0.2-1.0) mg/dl AST 10 L (13-39) U/L ALT 10 (7-52) U/L Alkaline Phosphatase 70 (34-104) U/L Total Protein 6.8 (6.0-8.3) gm/dl Albumin 2.8 L (3.4-5.0) gm/dl Globulin 4.0 (2.5-4.0) gm/dl Albumin/Globulin Ratio 0.7 L (0.9-2) Lipase 37 (11-82) U/L Urine Color Urine Appearance (Clear) Urine pH (4.5-7.5) Ur Specific [place] (1.000-1.030) Urine Protein (Negative) Urine Glucose (UA) (Negative) Urine Ketones (Negative) Urine Blood (Negative) Urine Nitrite (Negative) Urine Bilirubin (Negative) Urine Urobilinogen (Negative) Ur Leukocyte Esterase (Negative) Urine WBC (Auto) (0-5) /hpf Urine RBC (Auto) (0-4) /hpf U Hyaline Cast (Auto) (0-5) /lpf U Epithel Cells (Auto) (0-5) /lpf Urine Bacteria (Auto) (Negative) SARS-CoV-2, RNA, NAAT NEGATIVE (NEGATIVE) Blood Type Antibody Screen Crossmatch 11/20/21 11/20/21 11/20/21 Range/Units 14:45 14:45 15:19 WBC (4.8-10.8) K/ul RBC (4.63-6.08) M/uL Hgb (14.0-18.0) g/dl Hct (40.1-51.0) % MCV (80.0-100.0) fL MCH (25.0-34.0) pg MCHC (32.0-36.0) g/dL RDW Std Deviation (36.4-46.3) fL RDW Coeff of Jose A (11.5-14.5) % Plt Count (130-400) K/uL MPV (9.4-12.4) fL Immature Gran % (Auto) % Neut % (Auto) % Lymph % (Auto) % [place] % (Auto) % Eos % (Auto) % Baso % (Auto) % Reticulocyte % (Auto) 4.0 H (0.5-2.0) % Neut # (Auto) (1.4-6.5) K/uL Lymph # (Auto) (1.2-3.4) K/uL [place] # (Auto) (0.24-0.82) K/uL Eos # (Auto) (0-0.50) K/uL Baso # (Auto) (0-0.2) K/uL Reticulocyte # 0.09 (0.02-0.10) 10^6/uL Immature Gran # (Auto) (0.00-0.02) K/uL Absolute Nucleated RBC (0-0) K/uL Nucleated RBC % (auto) % Polychromasia Anisocytosis Acanthocytes (Spur) Sodium (136-145) mmol/L Potassium (3.5-5.1) mmol/L Chloride (98-107) mmol/L Carbon Dioxide (21-32) mmol/L Anion Gap (3-11) BUN (6-23) mg/dl Creatinine (0.6-1.4) mg/dl Est Cr Clr Drug Dosing ml/min Est GFR ( Amer) ml/min Est GFR (Non-Af Amer) ml/min BUN/Creatinine Ratio (10-20) Glucose (70-99(Fasting)) mg/dl Calcium (8.5-10.1) mg/dl Iron 37 (35-175) mcg/dl TIBC 191 L (250-450) mcg/dl Unsaturated IBC 154 L (155-355) mcg/dl Transferrin % Sat 19 L (20-50) % Ferritin 1027.5 H (8-388) ng/ml Total Bilirubin (0.2-1.0) mg/dl AST (13-39) U/L ALT (7-52) U/L Alkaline Phosphatase (34-104) U/L Total Protein (6.0-8.3) gm/dl Albumin (3.4-5.0) gm/dl Globulin (2.5-4.0) gm/dl Albumin/Globulin Ratio (0.9-2) Lipase (11-82) U/L Urine Color Yellow Urine Appearance Cloudy A (Clear) Urine pH 5.0 (4.5-7.5) Ur Specific [place] 1.015 (1.000-1.030) Urine Protein 2+ H (Negative) Urine Glucose (UA) Negative (Negative) Urine Ketones Negative (Negative) Urine Blood 3+ H (Negative) Urine Nitrite Negative (Negative) Urine Bilirubin Negative (Negative) Urine Urobilinogen Negative (Negative) Ur Leukocyte Esterase Trace H (Negative) Urine WBC (Auto) 1-5 (0-5) /hpf Urine RBC (Auto) >30 H (0-4) /hpf U Hyaline Cast (Auto) 1-5 (0-5) /lpf U Epithel Cells (Auto) 0-5 (0-5) /lpf Urine Bacteria (Auto) Negative (Negative) SARS-CoV-2, RNA, NAAT (NEGATIVE) Blood Type Antibody Screen Crossmatch 11/20/21 Range/Units 16:53 WBC (4.8-10.8) K/ul RBC (4.63-6.08) M/uL Hgb (14.0-18.0) g/dl Hct (40.1-51.0) % MCV (80.0-100.0) fL MCH (25.0-34.0) pg MCHC (32.0-36.0) g/dL RDW Std Deviation (36.4-46.3) fL RDW Coeff of Jose A (11.5-14.5) % Plt Count (130-400) K/uL MPV (9.4-12.4) fL Immature Gran % (Auto) % Neut % (Auto) % Lymph % (Auto) % [place] % (Auto) % Eos % (Auto) % Baso % (Auto) % Reticulocyte % (Auto) (0.5-2.0) % Neut # (Auto) (1.4-6.5) K/uL Lymph # (Auto) (1.2-3.4) K/uL [place] # (Auto) (0.24-0.82) K/uL Eos # (Auto) (0-0.50) K/uL Baso # (Auto) (0-0.2) K/uL Reticulocyte # (0.02-0.10) 10^6/uL Immature Gran # (Auto) (0.00-0.02) K/uL Absolute Nucleated RBC (0-0) K/uL Nucleated RBC % (auto) % Polychromasia Anisocytosis Acanthocytes (Spur) Sodium (136-145) mmol/L Potassium (3.5-5.1) mmol/L Chloride (98-107) mmol/L Carbon Dioxide (21-32) mmol/L Anion Gap (3-11) BUN (6-23) mg/dl Creatinine (0.6-1.4) mg/dl Est Cr Clr Drug Dosing ml/min Est GFR ( Amer) ml/min Est GFR (Non-Af Amer) ml/min BUN/Creatinine Ratio (10-20) Glucose (70-99(Fasting)) mg/dl Calcium (8.5-10.1) mg/dl Iron (35-175) mcg/dl TIBC (250-450) mcg/dl Unsaturated IBC (155-355) mcg/dl Transferrin % Sat (20-50) % Ferritin (8-388) ng/ml Total Bilirubin (0.2-1.0) mg/dl AST (13-39) U/L ALT (7-52) U/L Alkaline Phosphatase (34-104) U/L Total Protein (6.0-8.3) gm/dl Albumin (3.4-5.0) gm/dl Globulin (2.5-4.0) gm/dl Albumin/Globulin Ratio (0.9-2) Lipase (11-82) U/L Urine Color Urine Appearance (Clear) Urine pH (4.5-7.5) Ur Specific [place] (1.000-1.030) Urine Protein (Negative) Urine Glucose (UA) (Negative) Urine Ketones (Negative) Urine Blood (Negative) Urine Nitrite (Negative) Urine Bilirubin (Negative) Urine Urobilinogen (Negative) Ur Leukocyte Esterase (Negative) Urine WBC (Auto) (0-5) /hpf Urine RBC (Auto) (0-4) /hpf U Hyaline Cast (Auto) (0-5) /lpf U Epithel Cells (Auto) (0-5) /lpf Urine Bacteria (Auto) (Negative) SARS-CoV-2, RNA, NAAT (NEGATIVE) Blood Type B Positive Antibody Screen NEGATIVE Crossmatch See Detail Administered Medications Daptomycin 300 mg/ Syringe 6 mls @ 3 mls/min IV Q24H [facility]; Protocol Stop: 11/22/21 14:44 Last Admin: 11/20/21 15:04 Dose: 3 mls/min Documented By: SANDEEP Imaging Data Radiologist's Impression: Toe X-Ray 11/20/21 14:27 XR toe(s) RT min 2V HISTORY: 86 years-old Male 1/2 ? osteo chronic pain with soft tissue infection of the right foot COMPARISON: None TECHNIQUE: 3 views of the right foot FINDINGS: Demineralized appearance of the bones. Multifocal osteoarthritis, severe within the first MTP joint. Arterial calcifications. There is diffuse soft tissue swelling. There are no definite osseous erosions identified to suggest acute osteomyelitis. Bony defect with corticated margins involves the lateral aspect of the first distal phalangeal tuft. IMPRESSION: 1. Diffuse soft tissue swelling without acute fracture. 2. Bony defect with corticated margins involving the lateral aspect of the first distal phalangeal tuft may represent an area of chronic osteomyelitis. No definite acute cortical erosions are identified. 3. Multifocal osteoarthritis, severe within the first MTP joint. ACT 112: Negative or not required by law. The above report was generated using voice recognition software. It may contain grammatical, syntax or spelling errors. Electronically signed by: Rafael Jones M.D. 11/20/2021 3:23 PM Chest X-Ray 11/20/21 16:57 XR chest 1V portable HISTORY: 86 years-old Male hypoxia hypoxia COMPARISON: Chest radiograph 10/30/2020 TECHNIQUE: AP view of the chest FINDINGS: Cardiac megaly with pulmonary vascular congestion, interstitial coarsening with bibasilar consolidation and layering pleural effusions, worsened from prior. Left subclavian pacer. Prior median sternotomy with aortic valvular endograft and prior CABG. Degenerative changes of the shoulders and spine. IMPRESSION: 1. Cardiomegaly with interval development of pulmonary edema. 2. Layering pleural effusions with bibasilar consolidation. ACT 112: Negative or not required by law. The above report was generated using voice recognition software. It may contain grammatical, syntax or spelling errors. Electronically signed by: Rafael Jones M.D. 11/20/2021 5:21 PM Discharge Plan Visit Data Chief Complaint: Wound Stated Complaint: Wound ED Provider: Lamin Guido Discharge Problem: Osteomyelitis, Anemia, Weakness, MARCO (acute kidney injury) Patient Disposition: Admitted As Inpatient Discharge Instructions Interventions: ED Discharge Assessment Last Done: 11/20/21 19:20
[2021-11-20] MEDS ORDERED: DAPTOmycin 300 MG in SYRINGE 0 ML IV SCH (14:45)
[2021-11-20 15:12] LABS: Albumin Globulin Ratio 0.7 (0.9-2); Albumin Level 2.8 gm/dl (3.4-5.0); BUN Creatinine Ratio 21.8 (10-20); Bilirubin,Total 1.3 mg/dl (0.2-1.0); Calcium 7.6 mg/dl (8.5-10.1); Creatinine Clr Calc Pharmacy 17.5 ml/min; Est GFR (African American) 18.8 ml/min; Est GFR (Non-African American) 16.3 ml/min; Total Protein 6.8 gm/dl (6.0-8.3)
--- NOTE | 2021-11-20 15:24 | XRay Report ---
XR toe(s) RT min 2V HISTORY: 86 years-old Male / ? osteo chronic pain with soft tissue infection of the right foot COMPARISON: None TECHNIQUE: 3 views of the right foot FINDINGS: Demineralized appearance of the bones. Multifocal osteoarthritis, severe within the first MTP joint. Arterial calcifications. There is diffuse soft tissue swelling. There are no definite osseous erosion s identified to suggest acute osteomyelitis. Bony defect with corticated margins involves the lateral aspect of the first distal phalangeal tuft. IMPRESSION: 1. Diffuse soft tissue swelling without acute fracture. 2. Bony defect with corticated margins involving the lateral aspect of the first distal phalangeal tu ft may represent an area of chronic osteomyelitis. No definite acute cortical erosions are identified . 3. Multifocal osteoarthritis, severe within the first MTP joint. ACT 112: Negative or not required by law. The above report was generated using voice recognition software. It may contain grammatical, syntax o r spelling errors. Electronically signed by: Rafael Jones M.D. 11/20/2021 3:23 PM
[2021-11-20 15:35] LABS: Appearance Urine Cloudy (Clear); Bacteria Urine Automated Negative (Negative); Bilirubin Urine Negative (Negative); Blood Urine 3+ (Negative); Color Urine Yellow; Epithelial Cell Urine Auto 0-5 /lpf (0-5); Glucose Urine UA Negative (Negative); Ketones Urine Negative (Negative); Leukocyte Esterase Urine Trace (Negative); Nitrite Urine Negative (Negative); Protein Urine 2+ (Negative); RBC Urine Automated >30 /hpf (0-4); Specific Gravity Urine 1.015 (1.000-1.030); Urobilinogen Urine Negative (Negative)
[2021-11-20 16:04] LABS: Hemoglobin 6.8 g/dl (14.0-18.0); Mean Corpuscular Hemoglobin 29.4 pg (25.0-34.0); Mean Corpuscular Hgb Conc 32.4 g/dL (32.0-36.0); Mean Corpuscular Volume 90.9 fL (80.0-100.0); Mean Platelet Volume 9.4 fL (9.4-12.4); Platelet Count 65 K/uL (130-400); RDW Coefficient of Variation 20.1 % (11.5-14.5); Red Blood Count 2.31 M/uL (4.63-6.08); White Blood Count 5.08 K/ul (4.8-10.8)
[2021-11-20 16:05] LABS: Acanthocytes 1+; Anisocytosis Present; Basophils # (auto) 0.01 K/uL (0-0.2); Basophils % (auto) 0.2 %; Eosinophils # (auto) 0.02 K/uL (0-0.50); Eosinophils % (auto) 0.4 %; Immature Granulocytes # (auto) 0.05 K/uL (0.00-0.02); Lymphocytes # (auto) 0.34 K/uL (1.2-3.4); Lymphocytes % (auto) 6.7 %; Monocytes % (auto) 3.9 %; Neutrophils # (auto) 4.46 K/uL (1.4-6.5); Neutrophils % (auto) 87.8 %; Polychromasia 1+
[2021-11-20] MEDS ORDERED: SODIUM CHLORIDE 0.9% 250 ML IV PRN (16:25)
--- NOTE | 2021-11-20 16:42 | History & Physical Report ---
Date of Service November 20, 2021 Assessment & Plan (1) Toe osteomyelitis, right: Plan: Patient is a 86-year-old male with a past medical history of CAD s/p CABG, heart failure with preserved ejection fraction, paroxysmal atrial fibrillation, DM, TAVR, anticoagulation use, pacemaker placement, CKD, AAS, BPH with LUTS, hypertension, hypercholesterolemia, and anemia who presents from wound care with pressure ulcers, diabetic infected ulcer of the right toe, and anemia less than 7. Was recently discharged 11/11/2021 for generalized weakness and symptomatic anemia 2/2 iron deficiency with history of GI bleeding. At that admission patient had represented after a discharge 10/07 after being restarted on warfarin and he was unable to make a capsule endoscopy outpatient GI follow-up. During that admission Hemoccult was negative. Is been recommended to not hold warfarin unless absolutely necessary due to high risk of both with aortic stenosis, TAVR with elevated gradients, and history of A. fib. Suspected osteomyelitis of right toe, Sacral Ulcers - XRright foot: Diffuse tissue swelling edema, bony defect with corticated margins of the lateral first distal phalangeal tuft consistent with osteo-. Multifocal osteoarthritis -Prior culture positive for staph aureus, sensitive to clinda/Dapto/Vanco and Enterococcus intermediate resistance to Cipro Continue daptomycin for staph/Enterococcus coverage. If worsening add GN coverage - MRI pending. If paacer/ICD incompatible will f/u with CT instead. Defer contrast 2/2 MARCO - Wound consulted Acute on chronic anemia Hemoglobin 6.8, gradual downtrend last to 7.1 on 11/18, 8.0 11/08 No acute bleeding Plt 65 MARCO on CKD as noted below BUN chronically elevated, 71 on admission COVID-negative Iron panel pending Continue B12/folate supplementation Transfuse 1 unit PRBC, follow for appropriate rise Reticulocyte index pending Patient hypoxic respiratory failure Patient with chronic underlying cough, denies change in sputum production. Does have some shortness of breath, denies recent orthopnea/sleeping flat CXR pending History of heart failure TTE 08/27/2021: EF 65%, grade 2 diastolic dysfunction, dilated RA, s/p TAVR with elevated flow velocities and prosthesis stenosis versus valve mismatch, no AI, mild to moderate MR and TR, moderate pulmonary hypertension Lasix held for MARCO, legs appear near baseline and patient denies increased welling/orthopnea. If signs of pulmonary edema will resume and consult nephrology for assistance with MARCO management in the setting of overload additional risk from anemia MARCO on CKD Creatinine baseline approximately 1.41.7 Acutely elevated to 3.26 in the setting of anemia and volume depletion - Blood transfusion as above. Gentle IVF. Caution fluid overload with CHF and blood xfusion - Avoid nephrotoxins - Trend BMP - Bladder scan pending for retention given hx of LUTS S/p TAVR, history of paroxysmal A. fib On warfarin Goal INR 2.7 Patient with a slow downtrend, no precipitous drop. Continue warfarin at this time, would not hold unless absolutely necessary. Goal 2.53.5 Type II DM BSG AC/at bedtime A1c this past month well controlled Continue SSI Follow-up for SGLT2 as outpatient, prior GLP1 discontinue due to hypoglycemia Hyperlipidemia Continue simvastatin BPH with LUTS Continue tamsulosin DVT prophylaxis: On warfarin Diet: Diabetic, low-salt CODE STATUS: DNR/DNI (2) Chronic heart failure with preserved ejection fraction: (3) MARCO (acute kidney injury): (4) CKD (chronic kidney disease) stage 3, GFR 30-59 ml/min: (5) DM II (diabetes mellitus, type II), controlled: (6) Hypercholesterolemia: (7) Hyperglycemia: (8) S/P TAVR (transcatheter aortic valve replacement): (9) Stage III pressure ulcer of left buttock: (10) Stage III pressure ulcer of right buttock: (11) Venous stasis ulcer: (12) Urinary retention: History of Present Illness Primary Care Provider: [facility] [employer] [facility] Patient is a 86-year-old male with a past medical history of CAD s/p CABG, heart failure with preserved ejection fraction, paroxysmal atrial fibrillation, DM, TAVR, anticoagulation use, pacemaker placement, CKD, AAS, BPH with LUTS, hypertension, hypercholesterolemia, and anemia who presents from wound care with pressure ulcers, diabetic infected ulcer of the right toe, and anemia less than 7. Was recently discharged 11/11/2021 for generalized weakness and symptomatic anemia 2/2 iron deficiency with history of GI bleeding. At that admission patient had represented after a discharge 10/07 after being restarted on warfarin and he was unable to make a capsule endoscopy outpatient GI follow-up. During that admission Hemoccult was negative. Is been recommended to not hold warfarin unless absolutely necessary due to high risk of both with aortic stenosis, TAVR with elevated gradients, and history of A. fib. R foot 1st/2nd toe warmth/pain. Buttock wound cultures. ER at [facility] concerned for MRSA NO O2 use at home. +Sob, no chest pain. No fevers or chills. -N/-V/-D. Has not been eating well. C diff negative at [facility]. ?prilosec for GERD/appetite at [facility] but hasn't taken yet. Feels globally poor and with reduced appetite. Hx of anemia. No bleeding at [facility]. No bloody BMS. +diarrhea at [facility], not on iron. FOBT. +lightheaded, no syncope. +long cough, no change, no change in sputum production. COnstant clear sputum production. R>L leg swelling at basline, no recent change. Medical History: Reviewed Medications: Reviewed Surgical History: Reviewed Allergies: Reviewed Social History: No tobacco or alcohoul use. Code Status: DNR?DNI Allergies Allergy/AdvReac Type Severity Reaction Status Date / Time No Known Allergies Allergy Mild NONE Verified 11/20/21 15:40 Home Medications Medication Instructions Recorded Confirmed Type finasteride 5 mg tablet 5 mg PO QAM 01/17/21 11/20/21 History metoprolol succinate 50 mg 50 mg PO QAM 01/17/21 11/20/21 History tablet,extended release 24 hr simvastatin 20 mg tablet 20 mg PO HS 01/17/21 11/20/21 History tamsulosin 0.4 mg capsule 0.4 mg PO QAM 01/17/21 11/20/21 History triamcinolone acetonide 0.1 % 1 applic topical BID Right Leg 10/01/21 11/20/21 History topical ointment Wound folic acid 1 mg tablet 1 mg PO QAM #30 tabs 10/07/21 11/20/21 Rx amlodipine 5 mg tablet 5 mg PO QAM 10/25/21 11/20/21 History amoxicillin 500 mg tablet 2,000 mg PO DIRECTED PRN 1 HOUR 10/25/21 11/20/21 History PRIOR TO DENTAL PROCEDURES. cyanocobalamin (vitamin B-12) 5,000 mcg PO QAM 10/25/21 11/20/21 History 5,000 mcg capsule warfarin 5 mg tablet See Rx Instructions .Route .COMPLEX 10/25/21 11/20/21 History furosemide 40 mg tablet 40 mg PO DAILY #60 tabs 11/11/21 11/20/21 Rx glipizide 5 mg tablet 5 mg PO BID 11/18/21 11/20/21 History Past Med/Surg History Medical History Admitted to intensive care unit Anemia Anemia Anemia Anticoagulant long-term use Aortic stenosis BPH w urinary obs/LUTS Breath shortness CAD (coronary atherosclerotic disease) Chronic heart failure with preserved ejection fraction Colon cancer Coronary artery disease Dark stools Electrolyte abnormality Elevated troponin HTN (hypertension) Hypercholesterolemia Hypertension Hypoglycemia associated with diabetes Hypoxia Lower extremity edema Paroxysmal atrial fibrillation Subdural hematoma Vitamin B12 deficiency (dietary) anemia Weakness Surgical History H/O heart bypass surgery History of heart bypass surgery History of partial colectomy S/P TAVR (transcatheter aortic valve replacement) Status post evacuation of subdural hematoma Family History Other Family history non-contributory Social History Smoking Status: Never smoker Tobacco Type: Cigarettes Second Hand Exposure: No; Hx Alcohol Use: No Hx Substance Use: No Preferred Language: Amharic Communication Ability: Effective Assistant Refinery Operator Required: No Beliefs That Will Affect Care: None marital status: Current Living Situation: Family current occupational status: employed and retired How many Children do You have: 3 Feels Safe at Home: Yes Assistive Devices: Cane and Wheelchair Review of Systems Review of Systems: All systems reviewed & are unremarkable except as noted in Subjective Physical Exam Physical Exam: General: A&Ox3. NAD. Cooperative. HEENT: Atraumatic, normocephalic. PERLAA. Pulm: CTAB A&P. -wheezes, -rales, -rhonchi. Symmetrical chest rise. No increased work of breathing. No respiratory distress. Cardiac: RRR, -. Radial pulses intact and symmetrical. Abdominal: Nontender, nondistended, soft. BS present. Ext: R 1st/2nd digit of foot with erythema, ulceration, warmth and silver dressing in place. R > L edema. Sensation to soft touch intact in hands and feet . Ankle dorsiflexion/plantarflexion, boiler riveter strength 5/5. PT pulse intact bilat. Cap refill <2 sec on hallux bilat. Results & Data Results & Data ([facility]) Vital Signs (Past 12 Hours) Vital Signs Temp Pulse Pulse Resp BP BP Pulse Ox 11/20/21 16:19 94 11/20/21 16:19 88 L 11/20/21 15:00 67 16 133/62 95 11/20/21 14:29 11/20/21 14:24 36.5 C 75 20 133/62 93 O2 Del Method O2 Flow Rate 11/20/21 16:19 Nasal Cannula 4 11/20/21 16:19 11/20/21 15:00 11/20/21 14:29 Room Air 11/20/21 14:24 Room Air PG Care Time/CCT Total # of Minutes Spent Total Time Spent with Patient: Total time spent is greater than 50% in coordination of care (as documented) at patient's floor/unit and/or counseling patient: Coding Level of Care Code 70323 Initial Inpt Care Lvl 3 Diagnoses Toe osteomyelitis, right M86.9 Chronic heart failure with preserved ejection fraction I50.32 MARCO (acute kidney injury) N17.9 CKD (chronic kidney disease) stage 3, GFR 30-59 ml/min N18.30 DM II (diabetes mellitus, type II), controlled E11.9 Hypercholesterolemia E78.00 Hyperglycemia R73.9 S/P TAVR (transcatheter aortic valve replacement) Z95.2 Stage III pressure ulcer of left buttock L89.323 Stage III pressure ulcer of right buttock L89.313 Venous stasis ulcer I83.009; L97.909 Urinary retention R33.9
[2021-11-20 17:18] LABS: Reticulocytes # 0.09 10^6/uL (0.02-0.10)
[2021-11-20 17:20] LABS: Ferritin 1027.5 ng/ml (8-388)
--- NOTE | 2021-11-20 17:23 | XRay Report ---
XR chest 1V portable HISTORY: 86 years-old Male hypoxia hypoxia COMPARISON: Chest radiograph 10/30/2020 TECHNIQUE: AP view of the chest FINDINGS: Cardiac megaly with pulmonary vascular congestion, interstitial coarsening with bibasilar consolidati on and layering pleural effusions, worsened from prior. Left subclavian pacer. Prior median sternotom y with aortic valvular endograft and prior CABG. Degenerative changes of the shoulders and spine. IMPRESSION: 1. Cardiomegaly with interval development of pulmonary edema. 2. Layering pleural effusions with bibasilar consolidation. ACT 112: Negative or not required by law. The above report was generated using voice recognition software. It may contain grammatical, syntax o r spelling errors. Electronically signed by: Rafael Jones M.D. 11/20/2021 5:21 PM
[2021-11-20] MEDS ORDERED: ACETAMINOPHEN 325 MG TAB PO PRN (19:20)
[2021-11-20] MEDS ORDERED: GLUCAGON FOR INJ 1 MG VIAL SQ PRN (19:20)
[2021-11-20] MEDS ORDERED: PHARMACY GLYCEMIC MGMT CONSULT PRN (19:20)
[2021-11-20] MEDS ORDERED: GLUCOSE 40% GEL 15 GM TUBE PO PRN (19:20)
[2021-11-20] MEDS ORDERED: CARBOHYDRATES FOR HYPOGLYCEMIA PO PRN (19:20)
[2021-11-20] MEDS ORDERED: GLUCOSE 10 TAB/TUBE PO PRN (19:20)
[2021-11-20] MEDS ORDERED: DEXTROSE 50% 50 ML SYRINGE IV PRN (19:20)
--- NOTE | 2021-11-20 19:44 | Pharmacy Report ---
Pharmacy Glycemic Short Note 2 - Date of Service November 20, 2021 - Glycemic Short BSG Results (Last 24 hours): 11/20/21 14:45 Glucose 218 H OUTPATIENT ANTIDIABETIC REGIMEN: * Glipizide * HbA1c 6.3% on 10/26/21 ASSESSMENT: * 86 yo M with well controlled T2DM on a single oral agent as an outpatient with recent prolonged admission to [facility] re-admitted on 11/20 for osteomyelitis, anemia, and MARCO * Previous admission reviewed - loose Novolog and hardly any basal insulin administered, although some AM fasting BSG's were above goal * Will start low dose Lantus x1 and Novolog regimen from prior admit, prior to discharge PLAN FOR INPATIENT GLYCEMIC CONTROL: * Hold outpatient oral diabetes medications * Basal insulin * Lantus 10 units SQ x1 * Bolus insulin * NovoLog per scale ACHS or Q6hrs while NPO * Goal Range: Low 110 mg/dL - High 140 mg/dL * Correction Factor: 30 mg/dL/unit * Nutritional / Prandial insulin per carb ratio of 1 unit per 10 grams CHO consumed
[2021-11-20] MEDS ORDERED: LANTUS PER UNIT CHARGE SQ ONE (19:45)
[2021-11-20] MEDS ORDERED: LANTUS PER UNIT CHARGE SQ SCH ×3 (19:45→21:00)
[2021-11-20 20:29] LABS: Hematocrit (blood only) 20.9 % (40.1-51.0); Hemoglobin 6.9 g/dl (14.0-18.0)
[2021-11-20 20:30] LABS: INR 3.3 (0.9-1.1); Prothrombin Time 32.7 Seconds (9.0-12.0)
--- NOTE | 2021-11-20 20:45 | CT Scan Report ---
CT SCAN OF THE RIGHT FOOT WITHOUT IV CONTRAST CLINICAL HISTORY: First toe infection. COMPARISON STUDY: Radiographs of the toes dated 11/20/2021. TECHNIQUE: CT scan of the right foot is performed from the ankle to the base of the foot. Images are reviewed in the axial, sagittal, and coronal planes. IV contrast was not measured for this examinatio n. A dose lowering technique was utilized adhering to the principles of ALARA. The examination is mod estly degraded by motion artifact. CT DOSE: 187.29 mGy.cm FINDINGS: The skeletal structures are heterogeneously osteopenic. No acute fracture is seen. Erosive change is suggested involving the tuft of the first distal phalanx. This is suspicious for osteomyeli tis. No additional foci of bony erosion are suspected. There is moderate osteoarthritic change at the first metatarsophalangeal joint. Degenerative change is also seen throughout the midfoot. Cystic foc i are seen throughout the tarsal bones. There are dorsal and plantar calcaneal enthesophytes. Degener ative spurring is seen along the dorsal aspect of the tarsal bones. There is diffuse soft tissue parrish a and subcutaneous fluid seen throughout the foot. No organized fluid collection is seen on this unen hanced examination to suggest abscess. The Achilles tendon is intact as visualized. There is generali zed atrophy of the regional musculature. Atherosclerotic calcification is noted in the regional arter ies. No soft tissue gas is identified. Milder soft tissue edema is also seen in the partially visuali zed left foot. IMPRESSION: 1. There is diffuse soft tissue edema throughout the forefoot. Correlate clinically for evidence of c ellulitis. 2. There is no evidence of organized fluid collection to indicate abscess on this unenhanced examinat ion. 3. Erosive change is again suggested involving the tuft of the first distal phalanx. This is suspicio us for osteomyelitis and clinical correlation will be required. 4. No additional foci of bony erosion are suspected. No acute fracture is seen. ACT 112: Negative or not required by law. Dictated: 11/20/2021 7:16 PM Transcribed: 11/20/2021 7:40 PM Alyson [id number] [email or web address] Electronically signed by: Shon Zhao M.D. 11/20/2021 8:44 PM
[2021-11-20] MEDS ORDERED: glipiZIDE 5 MG TAB PO SCH (21:00)
[2021-11-20] MEDS ORDERED: INSULIN ASPART PER UNIT SC SCH (21:00)
[2021-11-20] MEDS ORDERED: ACETAMINOPHEN 325 MG TAB PO ONE (21:46)
[2021-11-20] MEDS ORDERED: diphenhydrAMINE 50 MG/ML VIAL IV ONE (21:46)
[2021-11-20] MEDS: SIMVASTATIN 20 MG TAB PO SCH (22:48)
[2021-11-20] MEDS: INSULIN ASPART PER UNIT SC SCH (23:48)
[2021-11-21] MEDS ORDERED: FUROSEMIDE INJ 20 MG/2 ML VIAL IV STA (02:49)
--- NOTE | 2021-11-21 02:51 | Communication Note ---
Date of Service: November 21, 2021 notified earlier in the evening that patient was set to receive pRBC in ED but was halted due to previous "reaction" no allergy was listed on chart / pRBCs were not given review of recent admission earlier this month did show that patient received blood in October with no issue - no notes of reaction discussed with patient, he was unaware of the reaction or when it occurred ; RN spoke with son, who also was reported not to know either however, neither remembered it being severe or along the lines of anaphylactic hgb returned at 6.9 on recheck did have r/b/a discussion with patient regarding his hgb level and his previous reaction we could not find information on transfusion consent signed, decided to proceed with 1U pRBC at a slow rate and mutually agreed to pretreat with diphenhydramine and apap - given did speak with blood bank after who was able to find info regarding previous reaction patient reportedly had a reaction on 10/02/21 where he developed wheezing, tachypnea, tachycardia, HTN approx. 45 minutes into transfusion - was afebrile pathologist notes reviewed, was suspected to be secondary to TACO rather than TRALI given his significant CHF history and HTN and afebrile state approx. 150cc into current transfusion patient did report feeling "funny" per RN was noted to have a hard time breathing - satted at 85% on 2L O2 and was subsequently bumped up to 6L on NC instructed to stop the transfusion patient seen at bedside- normotensive 120-130/80, HR 60, RR 20-25, SpO2 ~92% on 3-4L he says he feels "funny" but can't really describe why or what denies pain, says breathing feels fine and "better" no fever - though difficult to get temperatures on him lungs with some fine crackles in the RLL area; no JVD; no diaphoresis; cap refill ~1 sec in UEs; pulse 2+ ---- impression ---- hypoxia - paused transfusion immediately. odd that after just 150cc, he began experiencing dyspnea, requiring 3-6L supplemental O2. He has crackles on exam in RLL though his previous CXR demonstrates notable pulmonary edema here. He is normotensive, afebrile, and with a normal HR. TRALI is on the differential, TACO a possibility - though just 150cc seems small to initiate such an event. Reduced respiratory effort in setting of diphenhydramine? Intravascular process like hemolysis considered too. Check CBC, CMP, BNP. Check CXR. Lasix 15mg IV x 1 given MARCO, more PRN. blood to be sent for reaction w/u. unfortunately, much of this happened during EMR downtime. low threshold to upgrade to pcu. fatigue - reports feeling odd, though nothing hurts and he denies feeling sob or pain. primarily suspect this is from the benadryl pretreatment. he is fully a&o. labs as above. monitor o2. Resident Activity Tracking Resident Involvement: Resident Care Provided Care Provided: Adult Hospital Medicine
[2021-11-21 03:27] LABS: Albumin Globulin Ratio 0.7 (0.9-2); Albumin Level 2.7 gm/dl (3.4-5.0); BUN Creatinine Ratio 22.1 (10-20); Bilirubin,Total 1.3 mg/dl (0.2-1.0); Calcium 7.5 mg/dl (8.5-10.1); Creatinine Clr Calc Pharmacy 17.8 ml/min; Est GFR (African American) 19.2 ml/min; Est GFR (Non-African American) 16.6 ml/min; Globulin 3.7 gm/dl (2.5-4.0); Potassium 3.9 mmol/L (3.5-5.1); Total Protein 6.4 gm/dl (6.0-8.3)
[2021-11-21 03:32] LABS: INR 3.4 (0.9-1.1); Prothrombin Time 34.1 Seconds (9.0-12.0)
[2021-11-21] MEDS ORDERED: ALBUT/IPRATROP 3MG/0.5MG NEB 3 ML VIAL NEB STA (03:45)
[2021-11-21 03:55] LABS: Hemoglobin 6.9 g/dl (14.0-18.0); Mean Corpuscular Hemoglobin 29.4 pg (25.0-34.0); Mean Corpuscular Hgb Conc 32.9 g/dL (32.0-36.0); Mean Corpuscular Volume 89.4 fL (80.0-100.0); Mean Platelet Volume 9.5 fL (9.4-12.4); Platelet Count 66 K/uL (130-400); RDW Standard Deviation 62.4 fL (36.4-46.3); Red Blood Count 2.35 M/uL (4.63-6.08); White Blood Count 6.09 K/ul (4.8-10.8)
[2021-11-21 03:56] LABS: Immature Granulocytes # (auto) 0.04 K/uL (0.00-0.02); Immature Granulocytes % (auto) 0.7 %; Lymphocytes # (auto) 0.37 K/uL (1.2-3.4); Lymphocytes % (auto) 6.1 %; Monocytes # (auto) 0.16 K/uL (0.24-0.82); Monocytes % (auto) 2.6 %; Neutrophils # (auto) 5.52 K/uL (1.4-6.5); Neutrophils % (auto) 90.6 %; Polychromasia 1+
[2021-11-21] MEDS ORDERED: FUROSEMIDE 40 MG/4 ML VIAL IV ONE ×2 (07:54→17:35)
[2021-11-21 08:30] LABS: Blood Urine 3+ (Negative); RBC Urine Automated >30 /hpf (0-4)
--- NOTE | 2021-11-21 08:46 | XRay Report ---
XR chest 1V portable HISTORY: Shortness of breath. COMPARISON: Chest 11/20/2021. FINDINGS: No pneumothorax. There are low lung volumes. There are poststernotomy changes and a left-si ded dual-chamber pacemaker. Interval progression of the bilateral perihilar airspace opacities and di ffuse interstitial thickening. This suggests severe pulmonary edema. There are small to moderate bila teral pleural effusions which have progressed. A cardiac valve prosthesis is noted. Partially visuali zed old posttraumatic changes again noted within the right shoulder. IMPRESSION: Interval progression of the severe pulmonary edema and bilateral pleural effusions. ACT 112: Negative or not required by law. Electronically signed by: Preston Mcguire M.D. 11/21/2021 8:44 AM
[2021-11-21] MEDS ORDERED: IRON SUCROSE 300 MG in SODIUM CHLORIDE 0.9% 250 ML IV SCH (09:00)
[2021-11-21] MEDS: INSULIN ASPART PER UNIT SC SCH ×4 (09:04→21:43)
--- NOTE | 2021-11-21 11:19 | Hospitalist Progress Note ---
Date of Service November 21, 2021 Assessment & Plan (1) Toe osteomyelitis, right: Plan: Patient is a 86-year-old male with a past medical history of CAD s/p CABG, heart failure with preserved ejection fraction, paroxysmal atrial fibrillation, DM, TAVR, anticoagulation use, pacemaker placement, CKD, AAS, BPH with LUTS, hypertension, hypercholesterolemia, and anemia who presents from wound care with pressure ulcers, diabetic infected ulcer of the right toe, and anemia less than 7. Was recently discharged 11/11/2021 for generalized weakness and symptomatic anemia 2/2 iron deficiency with history of GI bleeding. At that admission patient had represented after a discharge 10/07 after being restarted on warfarin and he was unable to make a capsule endoscopy outpatient GI follow-up. During that admission Hemoccult was negative. Is been recommended to not hold warfarin unless absolutely necessary due to high risk of both with aortic stenosis, TAVR with elevated gradients, and history of A. fib. Suspected osteomyelitis of right toe, Sacral Ulcers - XRright foot: Diffuse tissue swelling edema, bony defect with corticated margins of the lateral first distal phalangeal tuft consistent with osteo-. Multifocal osteoarthritis -Prior culture positive for staph aureus, sensitive to clinda/Dapto/Vanco and Enterococcus intermediate resistance to Cipro On admission empirically placed on daptomycin for staph/Enterococcus coverage. Clinically improving, narrowed to Unasyn -MRI unable to be performed due to incompatible ICD leads 1. There is diffuse soft tissue edema throughout the forefoot. Correlate clinically for evidence of cellulitis. 2. There is no evidence of organized fluid collection to indicate abscess on this unenhanced examination. 3. Erosive change is again suggested involving the tuft of the first distal phalanx. This is suspicious for osteomyelitis and clinical correlation will be required. 4. No additional foci of bony erosion are suspected. No acute fracture is seen. Anticipate 6-8week course of treatment for osteo - Wound consulted Acute on chronic anemia Hemoglobin 6.8, gradual downtrend last to 7.1 on 11/18, 8.0 11/08 No acute bleeding Plt 65 BUN chronically elevated, 71 on admission COVID-negative Continue B12/folate supplementation Patient substantially volume overloaded. With pulmonary edema on CXR. Attempting to diurese, transfusion of blood held due to inability to tolerate a nd high risk for taco. Trend. If fluid status improved suspect will rise due to hemoconcentration, once room for additional fluid can revisit transfusion at that time. Patient hypoxic respiratory failure Patient with chronic underlying cough, denies change in sputum production. Does have some shortness of breath, denies recent orthopnea/sleeping flat CXR with evidence of pulmonary edema. History of heart failure TTE 08/27/2021: EF 65%, grade 2 diastolic dysfunction, dilated RA, s/p TAVR with elevated flow velocities and prosthesis stenosis versus valve mismatch, no AI, mild to moderate MR and TR, moderate pulmonary hypertension Lasix 15 given last night with minimal output. Lasix 80 mg given this morning, follow urinary output. Nephrology consulted MARCO on CKD Creatinine baseline approximately 1.41.7 Acutely elevated to 3.26 on admission, 3.21 this morning Hyponatremia, likely from fluid overload CXR with volume overload, received 80 mg Lasix IV Follow creatinine daily, nephrology consulted. - Avoid nephrotoxins - Trend BMP - Bladder scan pending for retention given hx of LUTS S/p TAVR, history of paroxysmal A. fib On warfarin Goal INR 2.5-3.5 Patient with a slow downtrend, no precipitous drop. Continue warfarin at this time, would not hold unless absolutely necessary. Goal 2.53.5 Type II DM BSG AC/at bedtime A1c this past month well controlled Continue SSI Follow-up for SGLT2 as outpatient, prior GLP1 discontinue due to hypoglycemia Hyperlipidemia Continue simvastatin BPH with LUTS Continue tamsulosin DVT prophylaxis: On warfarin Diet: Diabetic, low-salt CODE STATUS: DNR/DNI (2) Chronic heart failure with preserved ejection fraction: (3) MARCO (acute kidney injury): (4) CKD (chronic kidney disease) stage 3, GFR 30-59 ml/min: (5) DM II (diabetes mellitus, type II), controlled: (6) Hypercholesterolemia: (7) Hyperglycemia: (8) S/P TAVR (transcatheter aortic valve replacement): (9) Stage III pressure ulcer of left buttock: (10) Stage III pressure ulcer of right buttock: (11) Venous stasis ulcer: (12) Urinary retention: Admission and Anticipated Discharge Date Admission Date: November 20, 2021 Subjective Seen at bedside. Tolerating BiPAP. Feels better this morning, denies shortness of breath. Would like to try taking off BiPAP to eat if possible. Minimal urine output following Lasix last night, just received dose of Lasix prior to bedside assessment. Denies shortness of breath, chest pain, chest pressure at time of bedside assessment. Does endorse global fatigue. Is hungry. Denies palpitations/syncope/presyncope. Denies bleeding. Review of Systems Review of Systems: All systems reviewed & are unremarkable except as noted in Subjective Physical Exam Physical Exam: General: A&Ox3. NAD. Cooperative. HEENT: Atraumatic, normocephalic. PERLAA. Pulm: Basilar crackles symmetrical chest rise. No increased work of breathing. No respiratory distress. Cardiac: RRR, -. Radial pulses intact and symmetrical. Abdominal: Nontender, nondistended, soft. BS present. Ext: R 1st/2nd digit of foot with erythema, ulceration, warmth and silver dressing in place. R > L edema. Sensation to soft touch intact in hands and feet. Ankle dorsiflexion/plantarflexion, education administrative assistant strength 5/5. PT pulse intact bilat. Cap refill <2 sec on hallux bilat. Results & Data Results & Data ([facility]) Vital Signs (Past 12 Hours) Vital Signs Temp Pulse Pulse Resp BP BP Pulse Ox 11/21/21 09:23 11/21/21 07:54 60 20 147/70 H 100 11/21/21 02:45 60 26 H 153/66 H 92 11/21/21 07:37 36.3 C L 60 20 138/65 95 11/21/21 06:20 25 H 100 11/21/21 00:59 61 11/21/21 04:18 60 33 H 98 11/21/21 01:40 60 20 120/61 92 11/21/21 01:29 60 20 138/65 95 11/21/21 00:40 36.3 C L 60 22 107/56 L 94 11/21/21 00:10 36.3 C L 60 20 105/58 L 98 11/20/21 23:55 36.3 C L 60 20 111/56 L 97 11/20/21 23:35 36.4 C L 63 16 122/63 96 O2 Del Method O2 Flow Rate FiO2 11/21/21 09:23 BiPAP 11/21/21 07:54 BiPAP 11/21/21 02:45 High Flow Nasal Cannula 10 11/21/21 07:37 6 11/21/21 06:20 40 11/21/21 00:59 11/21/21 04:18 40 11/21/21 01:40 3 11/21/21 01:29 6 11/21/21 00:40 2 11/21/21 00:10 8 11/20/21 23:55 8 11/20/21 23:35 8 PG Care Time/CCT Total # of Minutes Spent Total Time Spent with Patient: Total time spent is greater than 50% in coordination of care (as documented) at patient's floor/unit and/or counseling patient: Coding Level of Care Code 15373 Subseq Hosp Care Lvl 3 Diagnoses Toe osteomyelitis, right M86.9 Chronic heart failure with preserved ejection fraction I50.32 MARCO (acute kidney injury) N17.9 CKD (chronic kidney disease) stage 3, GFR 30-59 ml/min N18.30 DM II (diabetes mellitus, type II), controlled E11.9 Hypercholesterolemia E78.00 Hyperglycemia R73.9 S/P TAVR (transcatheter aortic valve replacement) Z95.2 Stage III pressure ulcer of left buttock L89.323 Stage III pressure ulcer of right buttock L89.313 Venous stasis ulcer I83.009; L97.909 Urinary retention R33.9
[2021-11-21 11:32] LABS: Hematocrit (blood only) 20.9 % (40.1-51.0); Hemoglobin 7.1 g/dl (14.0-18.0)
[2021-11-21] MEDS: FINASTERIDE 5 MG TAB PO SCH (12:24)
[2021-11-21] MEDS: METOPROLOL SUCC 50MG EXT REL TAB PO SCH (12:24)
[2021-11-21] MEDS: TAMSULOSIN HCL 0.4 MG CAP PO SCH (12:24)
[2021-11-21] MEDS: amLODIPine BESYLATE 5 MG TAB PO SCH (12:24)
[2021-11-21] MEDS: CYANOCOBALAMIN (B-12) 2,500 MCG TABLET SL SCH (12:24)
[2021-11-21] MEDS: FOLIC ACID 1 MG TAB PO SCH (12:24)
--- NOTE | 2021-11-21 12:40 | Nephrology Consultation ---
Date of Consultation November 21, 2021 Assessment & Plan (1) MARCO (acute kidney injury): (2) Anemia: (3) Osteomyelitis: (4) Chronic heart failure with preserved ejection fraction: (5) Paroxysmal atrial fibrillation: (6) HF (heart failure), diastolic: (7) DM II (diabetes mellitus, type II), controlled: (8) CKD (chronic kidney disease) stage 3, GFR 30-59 ml/min: Plan Complex medical history. Etiology of MARCO not entirely clear. High degree of suspicion for ATN in the setting of profound anemia. Possible underlying CRS. Urine sodium not notably low and thankfully Flako is non-oliguric. IV diuretics have been provided for pulmonary edema and hypoxic respiratory failure. Goals of care were reviewed. Electrolytes are normal. There is no emergent indication for dialysis. Given Flako's multiple medical comorbidities and frailty, I would have reservations regarding dialysis and his ability to tolerate renal replacement therapy. Additional medical evaluation has been requested, including repeat urine studies and a renal US CKD with baseline creatinine ~1.5 mg/dL. Medications are acceptably dosed for kidney dysfunction. For anemia, Epogen 70522 units x 1 dose was provided today. Document strict I/O's and repeat metabolic profile this afternoon. History of Present Illness Reason for Consultation: MARCO/CKD Requesting Physician: Earl Bowser MD Attending Physician: Earl Bowser MD History of Present Illness Mr. Flako Parker is an 86 year-old male with a complex medical history including cardiovascular disease, chronic kidney disease, and notable anemia. He has had several recent hospitalization with acute on chronic anemia requiring PRBC transfusion support. The patient was most recently discharged on November 11. He returned to the ER at [facility] yesterday from the wound care clinic with sacral ulcers and suspected osteomyelitis of the right great toe. Laboratory studies on presentation were notable for anemia with a hemoglobin of 6.8 and MARCO with a creatinine of 3.2 mg/dL. Flako is non-oliguric. Baseline creatinine is ~1.5 mg/dL. Flako does not follow with a poultry killer. Serum creatinine was 1.6 mg/dL when discharged from the hospital earlier this month and 2.8 mg/dL on November 18. Urine analysis demonstrating 2+ protein, 3+ blood. Microscopy with 1-5 WBC and >30 RBC. Urine is cloudy but without gross hematuria per report. Flako unfortunately had a reaction to prior blood transfusion and concerning symptoms with attempted transfusion overnight. The transfusion was stopped. He presented with signs of pulmonary edema and following the reaction to blood transfusion demonstrated increasing signs of respiratory distress. CXR demonstrating noted increased interstitial edema. Dr. Bowser contacted me this morning to discuss the patient and review the plan of care. Furosemide 80 mg IV was provided. Flako was later seen and evaluated in his hospital room. He was resting comfortably with supplemental O2 via face mask. No fevers. He reports that he has been told that he has some chronic kidney disease during prior hospitalizations. He has very limited knowledge regarding [employer]. He is understandably reluctant to discuss dialysis. Medical history is notable for CAD s/p CABG, HFpEF, paroxysmal atrial fibrillation, DM, TAVR, pacemaker, CKD, BPH, and hypertension. Allergies Allergy/AdvReac Type Severity Reaction Status Date / Time Blood Transfusion AdvReac Intermediate TACO Uncoded 11/21/21 05:47 Home Medications Medication Instructions Recorded Confirmed Type finasteride 5 mg tablet 5 mg PO QAM 01/17/21 11/20/21 History metoprolol succinate 50 mg 50 mg PO QAM 01/17/21 11/20/21 History tablet,extended release 24 hr simvastatin 20 mg tablet 20 mg PO HS 01/17/21 11/20/21 History tamsulosin 0.4 mg capsule 0.4 mg PO QAM 01/17/21 11/20/21 History triamcinolone acetonide 0.1 % 1 applic topical BID Right Leg 10/01/21 11/20/21 History topical ointment Wound folic acid 1 mg tablet 1 mg PO QAM #30 tabs 10/07/21 11/20/21 Rx amlodipine 5 mg tablet 5 mg PO QAM 10/25/21 11/20/21 History amoxicillin 500 mg tablet 2,000 mg PO DIRECTED PRN 1 HOUR 10/25/21 11/20/21 History PRIOR TO DENTAL PROCEDURES. cyanocobalamin (vitamin B-12) 5,000 mcg PO QAM 10/25/21 11/20/21 History 5,000 mcg capsule warfarin 5 mg tablet See Rx Instructions .Route .COMPLEX 10/25/21 11/20/21 History furosemide 40 mg tablet 40 mg PO DAILY #60 tabs 11/11/21 11/20/21 Rx glipizide 5 mg tablet 5 mg PO BID 11/18/21 11/20/21 History Patient History Medical History Admitted to intensive care unit Anemia Anemia Anemia Anticoagulant long-term use Aortic stenosis BPH w urinary obs/LUTS Breath shortness CAD (coronary atherosclerotic disease) Chronic heart failure with preserved ejection fraction Colon cancer Coronary artery disease Dark stools Electrolyte abnormality Elevated troponin HTN (hypertension) Hypercholesterolemia Hypertension Hypoglycemia associated with diabetes Hypoxia Lower extremity edema Paroxysmal atrial fibrillation Subdural hematoma Vitamin B12 deficiency (dietary) anemia Weakness Surgical History H/O heart bypass surgery History of heart bypass surgery History of partial colectomy S/P TAVR (transcatheter aortic valve replacement) Status post evacuation of subdural hematoma Family History Other Family history non-contributory Social History Smoking Status: Former smoker Tobacco Type: Cigarettes Second Hand Exposure: No; Do You Dip or Chew Tobacco: No; Tobacco Cessation Education Requested by Patient: No Hx Alcohol Use: No Hx Substance Use: No Preferred Language: Filipino Communication Ability: Effective Paper Tube Cutter Required: No Beliefs That Will Affect Care: None marital status: Current Living Situation: Personal Care Facility current occupational status: employed and retired How many Children do You have: 3 Other Information That Helps Us Care for You: No Feels Safe at Home: Yes Safety Concerns: Feels Safe At This Time Assistive Devices: Cane, Walker and Wheelchair Review of Systems Review of Systems: All systems reviewed & are unremarkable except as noted in HPI & below Physical Exam Constitutional: well developed, + ill appearing and + frail appearing; no acute distress Eyes: + anicteric sclerae; no corneal abnormality ENMT: Mouth: + dry oral mucous membranes; no oral mucosal abnormality Neck: normal visual inspection and trachea midline Respiratory: + uses accessory muscles and + tachypneic Auscultation: + rhonchi; no wheezes Cardiovascular: Rate/Rhythm: regular rate Heart Sounds: normal S1, normal S2 and + murmur Extremities: + edema Musculoskeletal: Extremities: no cyanosis and no clubbing Skin: + turgor decreased; no lesions Neurologic: Motor/Sensory: no tremor and no asterixis Psychiatric: Orientation: alert and oriented x 3 Results & Data ([facility]) Vital Signs (Past 12 Hours) Vital Signs Temp Pulse Pulse Resp BP BP Pulse Ox 11/21/21 12:36 96 11/21/21 11:39 64 27 H 92 11/21/21 11:00 36.5 C 61 18 158/62 H 95 11/21/21 09:23 11/21/21 07:54 60 20 147/70 H 100 11/21/21 02:45 60 26 H 153/66 H 92 11/21/21 07:37 36.3 C L 60 20 138/65 95 11/21/21 06:20 25 H 100 11/21/21 00:59 61 11/21/21 04:18 60 33 H 98 11/21/21 01:40 60 20 120/61 92 11/21/21 01:29 60 20 138/65 95 11/21/21 00:40 36.3 C L 60 22 107/56 L 94 O2 Del Method O2 Flow Rate FiO2 11/21/21 12:36 High Flow Nasal Cannula 4 11/21/21 11:39 30 11/21/21 11:00 11/21/21 09:23 BiPAP 11/21/21 07:54 BiPAP 11/21/21 02:45 High Flow Nasal Cannula 10 11/21/21 07:37 6 11/21/21 06:20 40 11/21/21 00:59 11/21/21 04:18 40 11/21/21 01:40 3 11/21/21 01:29 6 11/21/21 00:40 2 Laboratory Results Laboratory Results - last 24 hr 11/20/21 11/20/21 11/20/21 14:35 14:45 14:45 WBC 5.08 RBC 2.31 L Hgb 6.8 L* Hct 21.0 L MCV 90.9 MCH 29.4 MCHC 32.4 RDW Std Deviation 67.0 H RDW Coeff of Jose A 20.1 H Plt Count 65 L MPV 9.4 Immature Gran % (Auto) 1.0 Neut % (Auto) 87.8 Lymph % (Auto) 6.7 [place] % (Auto) 3.9 Eos % (Auto) 0.4 Baso % (Auto) 0.2 Reticulocyte % (Auto) Neut # (Auto) 4.46 Lymph # (Auto) 0.34 L [place] # (Auto) 0.20 L Eos # (Auto) 0.02 Baso # (Auto) 0.01 Reticulocyte # Immature Gran # (Auto) 0.05 H Absolute Nucleated RBC 0.00 Nucleated RBC % (auto) 0.0 Polychromasia 1+ Anisocytosis Present Acanthocytes (Spur) 1+ PT INR Sodium 132 L Potassium 4.0 Chloride 101 Carbon Dioxide 22 Anion Gap 9 BUN 71 H Creatinine 3.26 H Est Cr Clr Drug Dosing 17.5 Est GFR ( Amer) 18.8 Est GFR (Non-Af Amer) 16.3 BUN/Creatinine Ratio 21.8 H Glucose 218 H POC Glucose Calcium 7.6 L Iron TIBC Unsaturated IBC Transferrin % Sat Ferritin Total Bilirubin 1.3 H AST 10 L ALT 10 Alkaline Phosphatase 70 B-Natriuretic Peptide Total Protein 6.8 Albumin 2.8 L Globulin 4.0 Albumin/Globulin Ratio 0.7 L Lipase 37 Procalcitonin Urine Color Urine Appearance Urine pH Ur Specific [place] Urine Protein Urine Glucose (UA) Urine Ketones Urine Blood Urine Nitrite Urine Bilirubin Urine Urobilinogen Ur Leukocyte Esterase Urine WBC (Auto) Urine RBC (Auto) U Hyaline Cast (Auto) U Epithel Cells (Auto) Urine Bacteria (Auto) Ur Random Sodium SARS-CoV-2, RNA, NAAT NEGATIVE Blood Type Antibody Screen Crossmatch Transfusion React Date Transfusion React Time Tx React Symptoms Reaction Clerical Check Lab Clerical Err Check React Component Return Volume Returned Pre-Trans Blood Type Pre-Trans Vis Hemolysis Pre-Trans EVANS Pre-Trans EVANS IgG Pre-Trans EVANS Poly Pre-Trans EVANS C3b, C3d Post-Trans Blood Type Post-Tx Visible Hemolys Post-Trans EVANS Post-Trans EVANS IgG Post-Trans EVANS Poly Post-Trans EVANS C3b, C3d Post-Trans Ur Hemoglobin Reaction Path Interpret Transfusion Serv Com 11/20/21 11/20/21 11/20/21 14:45 14:45 15:19 WBC RBC Hgb Hct MCV MCH MCHC RDW Std Deviation RDW Coeff of Jose A Plt Count MPV Immature Gran % (Auto) Neut % (Auto) Lymph % (Auto) [place] % (Auto) Eos % (Auto) Baso % (Auto) Reticulocyte % (Auto) 4.0 H Neut # (Auto) Lymph # (Auto) [place] # (Auto) Eos # (Auto) Baso # (Auto) Reticulocyte # 0.09 Immature Gran # (Auto) Absolute Nucleated RBC Nucleated RBC % (auto) Polychromasia Anisocytosis Acanthocytes (Spur) PT INR Sodium Potassium Chloride Carbon Dioxide Anion Gap BUN Creatinine Est Cr Clr Drug Dosing Est GFR ( Amer) Est GFR (Non-Af Amer) BUN/Creatinine Ratio Glucose POC Glucose Calcium Iron 37 TIBC 191 L Unsaturated IBC 154 L Transferrin % Sat 19 L Ferritin 1027.5 H Total Bilirubin AST ALT Alkaline Phosphatase B-Natriuretic Peptide Total Protein Albumin Globulin Albumin/Globulin Ratio Lipase Procalcitonin Urine Color Yellow Urine Appearance Cloudy A Urine pH 5.0 Ur Specific [place] 1.015 Urine Protein 2+ H Urine Glucose (UA) Negative Urine Ketones Negative Urine Blood 3+ H Urine Nitrite Negative Urine Bilirubin Negative Urine Urobilinogen Negative Ur Leukocyte Esterase Trace H Urine WBC (Auto) 1-5 Urine RBC (Auto) >30 H U Hyaline Cast (Auto) 1-5 U Epithel Cells (Auto) 0-5 Urine Bacteria (Auto) Negative Ur Random Sodium SARS-CoV-2, RNA, NAAT Blood Type Antibody Screen Crossmatch Transfusion React Date Transfusion React Time Tx React Symptoms Reaction Clerical Check Lab Clerical Err Check React Component Return Volume Returned Pre-Trans Blood Type Pre-Trans Vis Hemolysis Pre-Trans EVANS Pre-Trans EVANS IgG Pre-Trans EVANS Poly Pre-Trans EVANS C3b, C3d Post-Trans Blood Type Post-Tx Visible Hemolys Post-Trans EVANS Post-Trans EVANS IgG Post-Trans EVANS Poly Post-Trans EVANS C3b, C3d Post-Trans Ur Hemoglobin Reaction Path Interpret Transfusion Serv Com 11/20/21 11/20/21 11/20/21 16:53 19:59 19:59 WBC RBC Hgb 6.9 L* Hct 20.9 L* MCV MCH MCHC RDW Std Deviation RDW Coeff of Jose A Plt Count MPV Immature Gran % (Auto) Neut % (Auto) Lymph % (Auto) [place] % (Auto) Eos % (Auto) Baso % (Auto) Reticulocyte % (Auto) Neut # (Auto) Lymph # (Auto) [place] # (Auto) Eos # (Auto) Baso # (Auto) Reticulocyte # Immature Gran # (Auto) Absolute Nucleated RBC Nucleated RBC % (auto) Polychromasia Anisocytosis Acanthocytes (Spur) PT 32.7 H INR 3.3 H Sodium Potassium Chloride Carbon Dioxide Anion Gap BUN Creatinine Est Cr Clr Drug Dosing Est GFR ( Amer) Est GFR (Non-Af Amer) BUN/Creatinine Ratio Glucose POC Glucose Calcium Iron TIBC Unsaturated IBC Transferrin % Sat Ferritin Total Bilirubin AST ALT Alkaline Phosphatase B-Natriuretic Peptide Total Protein Albumin Globulin Albumin/Globulin Ratio Lipase Procalcitonin Urine Color Urine Appearance Urine pH Ur Specific [place] Urine Protein Urine Glucose (UA) Urine Ketones Urine Blood Urine Nitrite Urine Bilirubin Urine Urobilinogen Ur Leukocyte Esterase Urine WBC (Auto) Urine RBC (Auto) U Hyaline Cast (Auto) U Epithel Cells (Auto) Urine Bacteria (Auto) Ur Random Sodium SARS-CoV-2, RNA, NAAT Blood Type B Positive Antibody Screen NEGATIVE Crossmatch See Detail Transfusion React Date Transfusion React Time Tx React Symptoms Reaction Clerical Check Lab Clerical Err Check React Component Return Volume Returned Pre-Trans Blood Type Pre-Trans Vis Hemolysis Pre-Trans EVANS Pre-Trans EVANS IgG Pre-Trans EVANS Poly Pre-Trans EVANS C3b, C3d Post-Trans Blood Type Post-Tx Visible Hemolys Post-Trans EVANS Post-Trans EVANS IgG Post-Trans EVANS Poly Post-Trans EVANS C3b, C3d Post-Trans Ur Hemoglobin Reaction Path Interpret Transfusion Serv Com 11/20/21 11/20/21 11/21/21 23:19 23:21 01:43 WBC RBC Hgb Hct MCV MCH MCHC RDW Std Deviation RDW Coeff of Jose A Plt Count MPV Immature Gran % (Auto) Neut % (Auto) Lymph % (Auto) [place] % (Auto) Eos % (Auto) Baso % (Auto) Reticulocyte % (Auto) Neut # (Auto) Lymph # (Auto) [place] # (Auto) Eos # (Auto) Baso # (Auto) Reticulocyte # Immature Gran # (Auto) Absolute Nucleated RBC Nucleated RBC % (auto) Polychromasia Anisocytosis Acanthocytes (Spur) PT INR Sodium Potassium Chloride Carbon Dioxide Anion Gap BUN Creatinine Est Cr Clr Drug Dosing Est GFR ( Amer) Est GFR (Non-Af Amer) BUN/Creatinine Ratio Glucose POC Glucose 325 H* 317 H* 259 H Calcium Iron TIBC Unsaturated IBC Transferrin % Sat Ferritin Total Bilirubin AST ALT Alkaline Phosphatase B-Natriuretic Peptide Total Protein Albumin Globulin Albumin/Globulin Ratio Lipase Procalcitonin Urine Color Urine Appearance Urine pH Ur Specific [place] Urine Protein Urine Glucose (UA) Urine Ketones Urine Blood Urine Nitrite Urine Bilirubin Urine Urobilinogen Ur Leukocyte Esterase Urine WBC (Auto) Urine RBC (Auto) U Hyaline Cast (Auto) U Epithel Cells (Auto) Urine Bacteria (Auto) Ur Random Sodium SARS-CoV-2, RNA, NAAT Blood Type Antibody Screen Crossmatch Transfusion React Date Transfusion React Time Tx React Symptoms Reaction Clerical Check Lab Clerical Err Check React Component Return Volume Returned Pre-Trans Blood Type Pre-Trans Vis Hemolysis Pre-Trans EVANS Pre-Trans EVANS IgG Pre-Trans EVANS Poly Pre-Trans EVANS C3b, C3d Post-Trans Blood Type Post-Tx Visible Hemolys Post-Trans EVANS Post-Trans EVANS IgG Post-Trans EVANS Poly Post-Trans EVANS C3b, C3d Post-Trans Ur Hemoglobin Reaction Path Interpret Transfusion Serv Com 11/21/21 11/21/21 11/21/21 02:49 02:49 02:49 WBC 6.09 RBC 2.35 L Hgb 6.9 L* Hct 21.0 L MCV 89.4 MCH 29.4 MCHC 32.9 RDW Std Deviation 62.4 H RDW Coeff of Jose A 19.0 H Plt Count 66 L MPV 9.5 Immature Gran % (Auto) 0.7 Neut % (Auto) 90.6 Lymph % (Auto) 6.1 [place] % (Auto) 2.6 Eos % (Auto) 0.0 Baso % (Auto) 0.0 Reticulocyte % (Auto) Neut # (Auto) 5.52 Lymph # (Auto) 0.37 L [place] # (Auto) 0.16 L Eos # (Auto) 0.00 Baso # (Auto) 0.00 Reticulocyte # Immature Gran # (Auto) 0.04 H Absolute Nucleated RBC Nucleated RBC % (auto) Polychromasia 1+ Anisocytosis Acanthocytes (Spur) PT 34.1 H INR 3.4 H Sodium Potassium Chloride Carbon Dioxide Anion Gap BUN Creatinine Est Cr Clr Drug Dosing Est GFR ( Amer) Est GFR (Non-Af Amer) BUN/Creatinine Ratio Glucose POC Glucose Calcium Iron TIBC Unsaturated IBC Transferrin % Sat Ferritin Total Bilirubin AST ALT Alkaline Phosphatase B-Natriuretic Peptide Total Protein Albumin Globulin Albumin/Globulin Ratio Lipase Procalcitonin 0.26 Urine Color Urine Appearance Urine pH Ur Specific [place] Urine Protein Urine Glucose (UA) Urine Ketones Urine Blood Urine Nitrite Urine Bilirubin Urine Urobilinogen Ur Leukocyte Esterase Urine WBC (Auto) Urine RBC (Auto) U Hyaline Cast (Auto) U Epithel Cells (Auto) Urine Bacteria (Auto) Ur Random Sodium SARS-CoV-2, RNA, NAAT Blood Type Antibody Screen Crossmatch Transfusion React Date Transfusion React Time Tx React Symptoms Reaction Clerical Check Lab Clerical Err Check React Component Return Volume Returned Pre-Trans Blood Type Pre-Trans Vis Hemolysis Pre-Trans EVANS Pre-Trans EVANS IgG Pre-Trans EVANS Poly Pre-Trans EVANS C3b, C3d Post-Trans Blood Type Post-Tx Visible Hemolys Post-Trans EVANS Post-Trans EVANS IgG Post-Trans EVANS Poly Post-Trans EVANS C3b, C3d Post-Trans Ur Hemoglobin Reaction Path Interpret Transfusion Serv Com 11/21/21 11/21/21 11/21/21 02:49 02:49 02:55 WBC RBC Hgb Hct MCV MCH MCHC RDW Std Deviation RDW Coeff of Jose A Plt Count MPV Immature Gran % (Auto) Neut % (Auto) Lymph % (Auto) [place] % (Auto) Eos % (Auto) Baso % (Auto) Reticulocyte % (Auto) Neut # (Auto) Lymph # (Auto) [place] # (Auto) Eos # (Auto) Baso # (Auto) Reticulocyte # Immature Gran # (Auto) Absolute Nucleated RBC Nucleated RBC % (auto) Polychromasia Anisocytosis Acanthocytes (Spur) PT INR Sodium 131 L Potassium 3.9 Chloride 101 Carbon Dioxide 20 L Anion Gap 10 BUN 71 H Creatinine 3.21 H Est Cr Clr Drug Dosing 17.8 Est GFR ( Amer) 19.2 Est GFR (Non-Af Amer) 16.6 BUN/Creatinine Ratio 22.1 H Glucose 213 H POC Glucose Calcium 7.5 L Iron TIBC Unsaturated IBC Transferrin % Sat Ferritin Total Bilirubin 1.3 H AST 8 L ALT 8 Alkaline Phosphatase 73 B-Natriuretic Peptide 1182 H Total Protein 6.4 Albumin 2.7 L Globulin 3.7 Albumin/Globulin Ratio 0.7 L Lipase Procalcitonin Urine Color Urine Appearance Urine pH Ur Specific [place] Urine Protein Urine Glucose (UA) Urine Ketones Urine Blood Urine Nitrite Urine Bilirubin Urine Urobilinogen Ur Leukocyte Esterase Urine WBC (Auto) Urine RBC (Auto) U Hyaline Cast (Auto) U Epithel Cells (Auto) Urine Bacteria (Auto) Ur Random Sodium SARS-CoV-2, RNA, NAAT Blood Type Antibody Screen Crossmatch Transfusion React Date 11/21/21 Transfusion React Time 0128 Tx React Symptoms FEEL FUNNY,SOB,HYP Reaction Clerical Check None Found Lab Clerical Err Check None Found React Component Return PCLR Volume Returned 50ML Pre-Trans Blood Type B POSITIVE Pre-Trans Vis Hemolysis No Pre-Trans EVANS Negative Pre-Trans EVANS IgG Neg Pre-Trans EVANS Poly Neg Pre-Trans EVANS C3b, C3d Neg Post-Trans Blood Type B POSITIVE Post-Tx Visible Hemolys No Post-Trans EVANS Negative Post-Trans EVANS IgG Neg Post-Trans EVANS Poly Neg Post-Trans EVANS C3b, C3d Neg Post-Trans Ur Hemoglobin Reaction Path Interpret Transfusion Serv Com 11/21/21 11/21/21 11/21/21 07:40 08:05 08:05 WBC RBC Hgb Hct MCV MCH MCHC RDW Std Deviation RDW Coeff of Jose A Plt Count MPV Immature Gran % (Auto) Neut % (Auto) Lymph % (Auto) [place] % (Auto) Eos % (Auto) Baso % (Auto) Reticulocyte % (Auto) Neut # (Auto) Lymph # (Auto) [place] # (Auto) Eos # (Auto) Baso # (Auto) Reticulocyte # Immature Gran # (Auto) Absolute Nucleated RBC Nucleated RBC % (auto) Polychromasia Anisocytosis Acanthocytes (Spur) PT INR Sodium Potassium Chloride Carbon Dioxide Anion Gap BUN Creatinine Est Cr Clr Drug Dosing Est GFR ( Amer) Est GFR (Non-Af Amer) BUN/Creatinine Ratio Glucose POC Glucose 151 H Calcium Iron TIBC Unsaturated IBC Transferrin % Sat Ferritin Total Bilirubin AST ALT Alkaline Phosphatase B-Natriuretic Peptide Total Protein Albumin Globulin Albumin/Globulin Ratio Lipase Procalcitonin Urine Color Urine Appearance Urine pH Ur Specific [place] Urine Protein Urine Glucose (UA) Urine Ketones Urine Blood 3+ H Urine Nitrite Urine Bilirubin Urine Urobilinogen Ur Leukocyte Esterase Urine WBC (Auto) Urine RBC (Auto) >30 H U Hyaline Cast (Auto) U Epithel Cells (Auto) Urine Bacteria (Auto) Ur Random Sodium 51 SARS-CoV-2, RNA, NAAT Blood Type Antibody Screen Crossmatch Transfusion React Date Transfusion React Time Tx React Symptoms Reaction Clerical Check Lab Clerical Err Check React Component Return Volume Returned Pre-Trans Blood Type Pre-Trans Vis Hemolysis Pre-Trans EVANS Pre-Trans EVANS IgG Pre-Trans EVANS Poly Pre-Trans EVANS C3b, C3d Post-Trans Blood Type Post-Tx Visible Hemolys Post-Trans EVANS Post-Trans EVANS IgG Post-Trans EVANS Poly Post-Trans EVANS C3b, C3d Post-Trans Ur Hemoglobin Reaction Path Interpret Transfusion Serv Com 11/21/21 11/21/21 10:37 11:26 WBC RBC Hgb 7.1 L Hct 20.9 L* MCV MCH MCHC RDW Std Deviation RDW Coeff of Jose A Plt Count MPV Immature Gran % (Auto) Neut % (Auto) Lymph % (Auto) [place] % (Auto) Eos % (Auto) Baso % (Auto) Reticulocyte % (Auto) Neut # (Auto) Lymph # (Auto) [place] # (Auto) Eos # (Auto) Baso # (Auto) Reticulocyte # Immature Gran # (Auto) Absolute Nucleated RBC Nucleated RBC % (auto) Polychromasia Anisocytosis Acanthocytes (Spur) PT INR Sodium Potassium Chloride Carbon Dioxide Anion Gap BUN Creatinine Est Cr Clr Drug Dosing Est GFR ( Amer) Est GFR (Non-Af Amer) BUN/Creatinine Ratio Glucose POC Glucose 121 H Calcium Iron TIBC Unsaturated IBC Transferrin % Sat Ferritin Total Bilirubin AST ALT Alkaline Phosphatase B-Natriuretic Peptide Total Protein Albumin Globulin Albumin/Globulin Ratio Lipase Procalcitonin Urine Color Urine Appearance Urine pH Ur Specific [place] Urine Protein Urine Glucose (UA) Urine Ketones Urine Blood Urine Nitrite Urine Bilirubin Urine Urobilinogen Ur Leukocyte Esterase Urine WBC (Auto) Urine RBC (Auto) U Hyaline Cast (Auto) U Epithel Cells (Auto) Urine Bacteria (Auto) Ur Random Sodium SARS-CoV-2, RNA, NAAT Blood Type Antibody Screen Crossmatch Transfusion React Date Transfusion React Time Tx React Symptoms Reaction Clerical Check Lab Clerical Err Check React Component Return Volume Returned Pre-Trans Blood Type Pre-Trans Vis Hemolysis Pre-Trans EVANS Pre-Trans EVANS IgG Pre-Trans EVANS Poly Pre-Trans EVANS C3b, C3d Post-Trans Blood Type Post-Tx Visible Hemolys Post-Trans EVANS Post-Trans EVANS IgG Post-Trans EVANS Poly Post-Trans EVANS C3b, C3d Post-Trans Ur Hemoglobin Reaction Path Interpret Transfusion Serv Com PG Care Time/CCT Total # of Minutes Spent Total Time Spent with Patient: Total time spent is greater than 50% in coordination of care (as documented) at patient's floor/unit and/or counseling patient: Coding Level of Care Code 74902 Inpt Consult Level 4 Diagnoses MARCO (acute kidney injury) N17.9 Anemia D64.9 Osteomyelitis M86.9 Chronic heart failure with preserved ejection fraction I50.32 Paroxysmal atrial fibrillation I48.0 HF (heart failure), diastolic I50.33 Heart failure chronicity: acute on chronic DM II (diabetes mellitus, type II), controlled E11.9 CKD (chronic kidney disease) stage 3, GFR 30-59 ml/min N18.30 (1) HF (heart failure), diastolic Heart failure chronicity: acute on chronic Qualified Code(s): I50.33 - Acute on chronic diastolic (congestive) heart failure
[2021-11-21] MEDS ORDERED: EPOETIN ALFA 10,000 UNITS/ML VIAL SQ ONE (12:53)
[2021-11-21] MEDS ORDERED: WARFARIN SOD 5 MG TAB PO SCH (16:00)
[2021-11-21] MEDS ORDERED: LANTUS PER UNIT CHARGE SQ SCH (21:00)
--- NOTE | 2021-11-21 21:38 | Ultrasound Report ---
RENAL ULTRASOUND CLINICAL HISTORY: Acute kidney injury. COMPARISON STUDY: CTA of the abdomen October 04, 2021. TECHNIQUE: Sonography of the kidneys and the urinary bladder was performed. FINDINGS: The right kidney measures 12.3 cm in maximal dimension and the left measures 11.6 cm. Both kidneys are echogenic. There is mild renal cortical thinning. No hydronephrosis is present. There is a 1.8 cm left renal cyst. Bladder is collapsed, containing a De La Paz catheter. A small amount of ascite s within the pelvis is noted. Small gallstone is noted within the gallbladder. There is mild gallblad aaron wall thickening. However, no sonographic Doherty sign was elicited. There is no convincing evidenc e for acute cholecystitis. IMPRESSION: 1. No hydronephrosis. Echogenic kidneys suggestive of medical renal disease. 2. Small amount of ascites within the pelvis. 3. Cholelithiasis and mild gallbladder wall thickening. However, gallbladder not distended and no son ographic Doherty sign. No convincing evidence for acute cholecystitis. ACT 112: Negative or not required by law. Electronically signed by: Dominick Helms M.D. 11/21/2021 9:36 PM
[2021-11-21] MEDS: SIMVASTATIN 20 MG TAB PO SCH (21:49)
[2021-11-21] MEDS: AMPICILLIN/SULBACTAM SOD 3,000 MG in 0.9 % SODIUM CHLORIDE 100 ML IV SCH (21:50)
[2021-11-21] MEDS ORDERED: MELATONIN 3 MG TAB PO ONE ×2 (22:29→22:36)
[2021-11-22 06:42] LABS: Hemoglobin 7.4 g/dl (14.0-18.0); Mean Corpuscular Hemoglobin 29.6 pg (25.0-34.0); Mean Corpuscular Hgb Conc 32.2 g/dL (32.0-36.0); Mean Platelet Volume 10.7 fL (9.4-12.4); Platelet Count 86 K/uL (130-400); RDW Coefficient of Variation 19.6 % (11.5-14.5); RDW Standard Deviation 65.3 fL (36.4-46.3); White Blood Count 7.37 K/ul (4.8-10.8)
[2021-11-22 06:59] LABS: INR 3.7 (0.9-1.1); Prothrombin Time 36.8 Seconds (9.0-12.0)
[2021-11-22 07:17] LABS: Albumin Level 2.9 gm/dl (3.4-5.0); Calcium 7.7 mg/dl (8.5-10.1); Creatinine Clr Calc Pharmacy 16.6 ml/min; Est GFR (African American) 19.1 ml/min; Est GFR (Non-African American) 16.5 ml/min; Phosphorus 6.5 mg/dl (2.5-4.9); Potassium 4.3 mmol/L (3.5-5.1)
[2021-11-22 07:29] LABS: Basophilic Stippling 1+; Immature Granulocytes # (auto) 0.11 K/uL (0.00-0.02); Immature Granulocytes % (auto) 1.5 %; Lymphocytes # (auto) 0.31 K/uL (1.2-3.4); Lymphocytes % (auto) 4.2 %; Monocytes # (auto) 0.22 K/uL (0.24-0.82); Neutrophils # (auto) 6.73 K/uL (1.4-6.5); Neutrophils % (auto) 91.3 %; Polychromasia 1+
[2021-11-22] MEDS: FOLIC ACID 1 MG TAB PO SCH (08:14)
[2021-11-22] MEDS: CYANOCOBALAMIN (B-12) 2,500 MCG TABLET SL SCH (08:14)
[2021-11-22] MEDS: FINASTERIDE 5 MG TAB PO SCH (08:14)
[2021-11-22] MEDS: amLODIPine BESYLATE 5 MG TAB PO SCH (08:14)
[2021-11-22] MEDS: TAMSULOSIN HCL 0.4 MG CAP PO SCH (08:15)
[2021-11-22] MEDS: METOPROLOL SUCC 50MG EXT REL TAB PO SCH (08:15)
[2021-11-22] MEDS: INSULIN ASPART PER UNIT SC SCH ×4 (08:25→20:33)
[2021-11-22] MEDS: AMPICILLIN/SULBACTAM SOD 3,000 MG in 0.9 % SODIUM CHLORIDE 100 ML IV SCH ×2 (08:34→20:51)
--- NOTE | 2021-11-22 08:57 | Pharmacy Report ---
Pharmacy Glycemic Short Note 2 - Date of Service November 22, 2021 - Glycemic Short BSG Results (Last 24 hours): 11/21/21 11/21/21 11/21/21 11:26 16:54 19:31 Glucose POC Glucose 121 H 195 H 200 H 11/21/21 11/22/21 11/22/21 21:36 05:49 07:45 Glucose 182 H POC Glucose 175 H 217 H OUTPATIENT ANTIDIABETIC REGIMEN: * Glipizide 5 mg PO BID * HbA1c 6.3% on 10/26/21 ASSESSMENT: 11/22/21 * BSGs yesterday of 151, 121, 195, 175 mg/dL w/ fasting BSG of 217 mg/dL this morning * Will give basal this morning and use scaled dose this evening to likely provide increased daily basal * Insulin needs greater than expected given A1c on single oral agent and limited documented carbohydrates while inpatient * Possible stressors include infection (receiving Unasyn for osteomyelitis of toe) and MARCO * Not an ideal candidate for hemodialysis given multiple comorbidities/frailty - holding off on HD at this time * Kidney function stable at this time 11/20/21 * 86 yo M with well controlled T2DM on a single oral agent as an outpatient with recent prolonged admission to [facility] re-admitted on 11/20 for osteomyelitis, anemia, and MARCO * Previous admission reviewed - loose Novolog and hardly any basal insulin administered, although some AM fasting BSG's were above goal * Will start low dose Lantus x1 and Novolog regimen from prior admit, prior to discharge PLAN FOR INPATIENT GLYCEMIC CONTROL: * Hold outpatient oral diabetes medications * Basal insulin * Lantus 10 units SQ x1 this morning * Lantus 0-6 units SC HS * Reassess basal in AM * Bolus insulin * NovoLog per scale ACHS or Q6hrs while NPO * Goal Range: Low 110 mg/dL - High 140 mg/dL * Correction Factor: 25 mg/dL/unit * Nutritional / Prandial insulin per carb ratio of 1 unit per 9 grams CHO consumed
[2021-11-22] MEDS ORDERED: LANTUS PER UNIT CHARGE SQ SCH ×2 (09:00→21:00)
[2021-11-22] MEDS: FUROSEMIDE 40 MG/4 ML VIAL IV SCH (09:28)
--- NOTE | 2021-11-22 10:44 | Nephrology Progress Note ---
Date of Service November 22, 2021 Assessment & Plan (1) MARCO (acute kidney injury): Plan: Etiology of MARCO not entirely clear. High degree of suspicion for ATN in the setting of profound anemia. Possible underlying CRS. Urine sodium not significantly low and thankfully Flako is non-oliguric. IV diuretics have been provided for pulmonary edema and hypoxic respiratory failure. Goals of care were reviewed. Electrolytes are normal. There is no emergent indication for dialysis. Given Flako's multiple medical comorbidities and frailty, I would have reservations regarding dialysis and his ability to tolerate renal replacement therapy. Flako expressed similar feelings yesterday. Thankfully, kidney function is stable and there is no indication for DIRECTOR OF PEDIATRIC REHABILITATION at this time. Medications are acceptably dosed for kidney dysfunction. Document strict I/O's and repeat metabolic profile tomorrow AM. (2) Anemia: Plan: For anemia, Epogen 76868 units x 1 dose was provided yesterday. IV venofer is being provided daily or MODESTA. (3) Osteomyelitis: Plan: Antibiotic therapy narrowed to Unasyn. (4) Chronic heart failure with preserved ejection fraction: (5) Paroxysmal atrial fibrillation: (6) HF (heart failure), diastolic: Plan: Furosemide 80 mg IV provided this AM. Goal is to continue to maintain a negative fluid balance. Additional 40 mg provided yesterday afternoon. Net negative ~1.3 L in past 24 hours. (7) DM II (diabetes mellitus, type II), controlled: (8) CKD (chronic kidney disease) stage 3, GFR 30-59 ml/min: Plan: CKD with baseline creatinine ~1.5 mg/dL. Flako has not followed with a nephrol ogist in the past. Admission and Anticipated Discharge Date Admission Date: November 20, 2021 Subjective Placed back on BIPAP this AM for increased work of breathing. Resting comfortably on BIPAP during my assessment this AM. Good urine output wih diuretics yesterday. No signs of GI blood loss reported. No chest pain or palpitations. Review of Systems Review of Systems: All systems reviewed & are unremarkable except as noted in HPI & below Physical Exam Constitutional: well developed, + ill appearing and + frail appearing; no acute distress Eyes: + anicteric sclerae; no corneal abnormality Neck: normal visual inspection and trachea midline Respiratory: + uses accessory muscles and + tachypneic Auscultation: + rhonchi; no wheezes Cardiovascular: Rate/Rhythm: regular rate Heart Sounds: normal S1, normal S2 and + murmur Extremities: + edema Musculoskeletal: Extremities: no cyanosis and no clubbing Skin: + turgor decreased; no lesions Neurologic: Motor/Sensory: no tremor and no asterixis Psychiatric: Orientation: alert and oriented to person; + not oriented x 3 Results & Data ([facility]) Vital Signs (Past 12 Hours) Vital Signs Temp Pulse Pulse Resp BP Pulse Ox Pulse Ox 11/22/21 08:00 60 11/22/21 08:00 11/22/21 08:00 90 11/22/21 07:30 36.6 C 60 22 131/61 90 11/22/21 07:31 81 35 H 88 L 11/22/21 04:22 60 11/22/21 03:17 36.4 C L 63 18 155/70 H 91 11/21/21 23:10 61 26 H 98 11/21/21 23:05 36.3 C L 64 18 142/65 H 96 O2 Del Method O2 Del Method O2 Flow Rate FiO2 11/22/21 08:00 11/22/21 08:00 BiPAP 40 11/22/21 08:00 BiPAP 11/22/21 07:30 11/22/21 07:31 40 11/22/21 04:22 11/22/21 03:17 Oxymask 10 11/21/21 23:10 30 11/21/21 23:05 Oxymask 10 Laboratory Results Laboratory Results - last 24 hr 11/21/21 11/21/21 11/21/21 10:37 11:26 16:54 WBC RBC Hgb 7.1 L Hct 20.9 L* MCV MCH MCHC RDW Std Deviation RDW Coeff of Jose A Plt Count MPV Immature Gran % (Auto) Neut % (Auto) Lymph % (Auto) Dolores % (Auto) Eos % (Auto) Baso % (Auto) Neut # (Auto) Lymph # (Auto) Dolores # (Auto) Eos # (Auto) Baso # (Auto) Immature Gran # (Auto) Polychromasia Basophilic Stippling PT INR Sodium Potassium Chloride Carbon Dioxide Anion Gap BUN Creatinine Est Cr Clr Drug Dosing Est GFR ( Amer) Est GFR (Non-Af Amer) BUN/Creatinine Ratio Glucose POC Glucose 121 H 195 H Calcium Phosphorus Albumin 11/21/21 11/21/21 11/22/21 19:31 21:36 05:49 WBC RBC Hgb Hct MCV MCH MCHC RDW Std Deviation RDW Coeff of Jose A Plt Count MPV Immature Gran % (Auto) Neut % (Auto) Lymph % (Auto) Dolores % (Auto) Eos % (Auto) Baso % (Auto) Neut # (Auto) Lymph # (Auto) Dolores # (Auto) Eos # (Auto) Baso # (Auto) Immature Gran # (Auto) Polychromasia Basophilic Stippling PT 36.8 H INR 3.7 H Sodium Potassium Chloride Carbon Dioxide Anion Gap BUN Creatinine Est Cr Clr Drug Dosing Est GFR ( Amer) Est GFR (Non-Af Amer) BUN/Creatinine Ratio Glucose POC Glucose 200 H 175 H Calcium Phosphorus Albumin 11/22/21 11/22/21 11/22/21 05:49 05:49 07:45 WBC 7.37 RBC 2.50 L Hgb 7.4 L Hct 23.0 L MCV 92.0 MCH 29.6 MCHC 32.2 RDW Std Deviation 65.3 H RDW Coeff of Jose A 19.6 H Plt Count 86 L MPV 10.7 Immature Gran % (Auto) 1.5 Neut % (Auto) 91.3 Lymph % (Auto) 4.2 Dolores % (Auto) 3.0 Eos % (Auto) 0.0 Baso % (Auto) 0.0 Neut # (Auto) 6.73 H Lymph # (Auto) 0.31 L Dolores # (Auto) 0.22 L Eos # (Auto) 0.00 Baso # (Auto) 0.00 Immature Gran # (Auto) 0.11 H Polychromasia 1+ Basophilic Stippling 1+ PT INR Sodium 134 L Potassium 4.3 Chloride 103 Carbon Dioxide 22 Anion Gap 9 BUN 74 H Creatinine 3.22 H Est Cr Clr Drug Dosing 16.6 Est GFR ( Amer) 19.1 Est GFR (Non-Af Amer) 16.5 BUN/Creatinine Ratio 23.0 H Glucose 182 H POC Glucose 217 H Calcium 7.7 L Phosphorus 6.5 H Albumin 2.9 L PG Care Time/CCT Total # of Minutes Spent Total Time Spent with Patient: Total time spent is greater than 50% in coordination of care (as documented) at patient's floor/unit and/or counseling patient: Coding Level of Care Code 17338 Subseq Hosp Care Lvl 3 Diagnoses MARCO (acute kidney injury) N17.9 Anemia D64.9 Osteomyelitis M86.9 Chronic heart failure with preserved ejection fraction I50.32 Paroxysmal atrial fibrillation I48.0 HF (heart failure), diastolic I50.33 Heart failure chronicity: acute on chronic DM II (diabetes mellitus, type II), controlled E11.9 CKD (chronic kidney disease) stage 3, GFR 30-59 ml/min N18.30 (1) HF (heart failure), diastolic Heart failure chronicity: acute on chronic Qualified Code(s): I50.33 - Acute on chronic diastolic (congestive) heart failure
--- NOTE | 2021-11-22 12:24 | Hospitalist Progress Note ---
Date of Service November 22, 2021 Assessment & Plan (1) Toe osteomyelitis, right: Plan: Patient is a 86-year-old male with a past medical history of CAD s/p CABG, heart failure with preserved ejection fraction, paroxysmal atrial fibrillation, DM, TAVR, anticoagulation use, pacemaker placement, CKD, AAS, BPH with LUTS, hypertension, hypercholesterolemia, and anemia who presents from wound care with pressure ulcers, diabetic infected ulcer of the right toe, and anemia less than 7. Was recently discharged 11/11/2021 for generalized weakness and symptomatic anemia 2/2 iron deficiency with history of GI bleeding. At that admission patient had represented after a discharge 10/07 after being restarted on warfarin and he was unable to make a capsule endoscopy outpatient GI follow-up. During that admission Hemoccult was negative. Is been recommended to not hold warfarin unless absolutely necessary due to high risk of both with aortic stenosis, TAVR with elevated gradients, and history of A. fib. Suspected osteomyelitis of right toe, Sacral Ulcers - XRright foot: Diffuse tissue swelling edema, bony defect with corticated margins of the lateral first distal phalangeal tuft consistent with osteo-. Multifocal osteoarthritis -Prior culture positive for staph aureus, sensitive to clinda/Dapto/Vanco and Enterococcus intermediate resistance to Cipro On admission empirically placed on daptomycin for staph/Enterococcus coverage. Clinically improving, narrowed to Unasyn -MRI unable to be performed due to incompatible ICD leads 1. There is diffuse soft tissue edema throughout the forefoot. Correlate clinically for evidence of cellulitis. 2. There is no evidence of organized fluid collection to indicate abscess on this unenhanced examination. 3. Erosive change is again suggested involving the tuft of the first distal phalanx. This is suspicious for osteomyelitis and clinical correlation will be required. 4. No additional foci of bony erosion are suspected. No acute fracture is seen. Anticipate 6-8week course of treatment for osteo - Wound consulted Acute on chronic anemia Hemoglobin 6.8 on admission, gradual downtrend last to 7.1 on 11/18, 8.0 11/08 No acute bleeding Plt 65 BUN chronically elevated, 71 on admission COVID-negative Continue B12/folate supplementation Patient substantially volume overloaded. With pulmonary edema on CXR. Attempting to diurese, transfusion of blood held due to inability to tolerate and high risk for taco. Trend. A rising hemoglobin likely with some production and hemoconcentration, once fluid status and breathing improves can consider transfusion if below 7. Continues to diurese and clinically with volume overload Patient hypoxic respiratory failure Patient with chronic underlying cough, denies change in sputum production. Does have some shortness of breath, denies recent orthopnea/sleeping flat CXR with evidence of pulmonary edema. History of heart failure TTE 08/27/2021: EF 65%, grade 2 diastolic dysfunction, dilated RA, s/p TAVR with elevated flow velocities and prosthesis stenosis versus valve mismatch, no AI, mild to moderate MR and TR, moderate pulmonary hypertension Lasix 15 given last night with minimal output. Lasix 80 mg given this morning, follow urinary output. Nephrology consulted MARCO on CKD Creatinine baseline approximately 1.41.7 DDx includes ATN/cardiorenal Acutely elevated to 3.26 on admission, 3.22 this morning Hyponatremia, likely from fluid overload CXR with volume overload, received 80 mg Lasix IV Follow creatinine daily, nephrology consulted. - Avoid nephrotoxins - Trend BMP - Bladder scan pending for retention given hx of LUTS S/p TAVR, history of paroxysmal A. fib On warfarin Goal INR 2.5-3.5 Patient with a slow downtrend, no precipitous drop. Continue warfarin at this time, would not hold unless absolutely necessary. Goal 2.53.5 Supratherapeutic 11/22 at 3.7, warfarin dose for today held Type II DM BSG AC/at bedtime A1c this past month well controlled Continue SSI Follow-up for SGLT2 as outpatient, prior GLP1 discontinue due to hypoglycemia Hyperlipidemia Continue simvastatin BPH with LUTS Continue tamsulosin DVT prophylaxis: On warfarin Diet: Diabetic, low-salt CODE STATUS: DNR/DNI (2) Chronic heart failure with preserved ejection fraction: (3) MARCO (acute kidney injury): (4) CKD (chronic kidney disease) stage 3, GFR 30-59 ml/min: (5) DM II (diabetes mellitus, type II), controlled: (6) Hypercholesterolemia: (7) Hyperglycemia: (8) S/P TAVR (transcatheter aortic valve replacement): (9) Stage III pressure ulcer of left buttock: (10) Stage III pressure ulcer of right buttock: (11) Venous stasis ulcer: (12) Urinary retention: Admission and Anticipated Discharge Date Admission Date: November 20, 2021 Subjective Doing well at bedside assessment this morning. Is on BiPAP. Reportedly was off BiPAP/O2 last night with a desaturation event but rapidly improved with high flow and BiPAP. Continuing to diurese well. She reports he feels like he is breathing less hard today, but is not yet back to normal. Denies ligh theadedness/dizziness. No chest pain. Review of Systems Review of Systems: All systems reviewed & are unremarkable except as noted in Subjective Physical Exam Physical Exam: General: Oriented to name, place, and day at bedside. NAD. Housekeeping Supervisor perative. HEENT: Atraumatic, normocephalic. PERLAA. Pulm: Basilar crackles symmetrical chest rise. No increased work of breathing. No respiratory distress. Cardiac: RRR, -mrg. Radial pulses intact and symmetrical. Abdominal: Nontender, nondistended, soft. BS present. Ext: R 1st/2nd digit of foot with erythema, ulceration, warmth and dressing in place C/D/I. R > L edema. Sensation to soft touch intact in hands and feet. PT pulse intact bilat. Results & Data Results & Data ([facility]) Vital Signs (Past 12 Hours) Vital Signs Temp Pulse Pulse Resp BP Pulse Ox Pulse Ox 11/22/21 11:51 36.3 C L 76 18 158/66 H 93 11/22/21 11:05 66 31 H 100 11/22/21 08:00 60 11/22/21 08:00 11/22/21 08:00 90 11/22/21 07:30 36.6 C 60 22 131/61 90 11/22/21 07:31 81 35 H 88 L 11/22/21 04:22 60 11/22/21 03:17 36.4 C L 63 18 155/70 H 91 O2 Del Method O2 Del Method O2 Flow Rate FiO2 11/22/21 11:51 11/22/21 11:05 40 11/22/21 08:00 11/22/21 08:00 BiPAP 40 11/22/21 08:00 BiPAP 11/22/21 07:30 11/22/21 07:31 40 11/22/21 04:22 11/22/21 03:17 Oxymask 10 PG Care Time/CCT Total # of Minutes Spent Total Time Spent with Patient: Total time spent is greater than 50% in coordination of care (as documented) at patient's floor/unit and/or counseling patient: Coding Level of Care Code 53698 Subseq Hosp Care Lvl 3 Diagnoses Toe osteomyelitis, right M86.9 Chronic heart failure with preserved ejection fraction I50.32 MARCO (acute kidney injury) N17.9 CKD (chronic kidney disease) stage 3, GFR 30-59 ml/min N18.30 DM II (diabetes mellitus, type II), controlled E11.9 Hypercholesterolemia E78.00 Hyperglycemia R73.9 S/P TAVR (transcatheter aortic valve replacement) Z95.2 Stage III pressure ulcer of left buttock L89.323 Stage III pressure ulcer of right buttock L89.313 Venous stasis ulcer I83.009; L97.909 Urinary retention R33.9
[2021-11-22] MEDS ORDERED: WARFARIN SOD 5 MG TAB PO SCH (16:00)
[2021-11-22] MEDS: SIMVASTATIN 20 MG TAB PO SCH (20:45)
[2021-11-22 22:17] LABS: iSTAT Allen Test Pass; iSTAT Art Bld Gas pCO2 Correct 46 mmHg (35-46); iSTAT Art Bld Gas pH Corrected 7.295 (7.35-7.45); iSTAT Arterial Blood Gas HCO3 23 meg/L (19-24); iSTAT Arterial Blood Gas pCO2 49 mmHg (35-46); iSTAT Arterial Blood Gas pH 7.28 (7.35-7.45); iSTAT Arterial Blood Gas pO2 33 mmHg (80-95); iSTAT Arterial Blood Gas pO2 C 30; iSTAT Carbon Dioxide 24 mmol/L (24-31); iSTAT FiO2 55 %; iSTAT Hematocrit 18 % (42-52); iSTAT Hemoglobin 6.1 g/dl (14.0-18.0); iSTAT Potassium 4.1 mmol/L (3.3-5.0); iSTAT Site R Radial; iSTAT Sodium 137 mmol/L (135-144)
[2021-11-23 06:41] LABS: Basophils # (auto) 0.01 K/uL (0-0.2); Basophils % (auto) 0.1 %; Eosinophils # (auto) 0.01 K/uL (0-0.50); Eosinophils % (auto) 0.1 %; Hematocrit (blood only) 22.1 % (40.1-51.0); Hemoglobin 7.2 g/dl (14.0-18.0); Immature Granulocytes # (auto) 0.17 K/uL (0.00-0.02); Immature Granulocytes % (auto) 2.3 %; Lymphocytes # (auto) 0.55 K/uL (1.2-3.4); Lymphocytes % (auto) 7.4 %; Mean Corpuscular Hemoglobin 29.8 pg (25.0-34.0); Mean Corpuscular Hgb Conc 32.6 g/dL (32.0-36.0); Mean Corpuscular Volume 91.3 fL (80.0-100.0); Mean Platelet Volume 9.5 fL (9.4-12.4); Monocytes # (auto) 0.29 K/uL (0.24-0.82); Monocytes % (auto) 3.9 %; Neutrophils # (auto) 6.44 K/uL (1.4-6.5); Neutrophils % (auto) 86.2 %; Platelet Count 80 K/uL (130-400); RDW Coefficient of Variation 19.5 % (11.5-14.5); Red Blood Count 2.42 M/uL (4.63-6.08); White Blood Count 7.47 K/ul (4.8-10.8)
[2021-11-23 06:57] LABS: INR 3.8 (0.9-1.1); Prothrombin Time 37.8 Seconds (9.0-12.0)
[2021-11-23 07:17] LABS: Polychromasia 1+
[2021-11-23 07:46] LABS: BUN Creatinine Ratio 26.4 (10-20); Creatinine Clr Calc Pharmacy 17.2 ml/min; Est GFR (African American) 20.3 ml/min; Est GFR (Non-African American) 17.5 ml/min; Magnesium 2.1 mg/dl (1.7-2.4)
--- NOTE | 2021-11-23 07:49 | Ultrasound Report ---
ULTRASOUND BILATERAL LOWER EXTREMITY ARTERIAL CLINICAL HISTORY: Peripheral arterial disease. COMPARISON STUDY: Bilateral lower extremity arterial ultrasound dated 07/12/2020. TECHNIQUE: Portable real-time, grayscale and color Doppler sonography of the arteries of the right an d left lower extremity is performed from the inguinal crease to the foot. Ankle brachial indices were not assessed on this portable examination. FINDINGS: Right lower extremity: Atherosclerotic plaque and irregularity are seen throughout the arteries of th e right lower extremity. There are triphasic arterial waveforms in the common femoral artery with breana ocities measuring up to 105 cm second. The profunda femoris artery is patent with velocities measure up to 43 cm/s. There are triphasic arterial waveforms throughout the superficial femoral and poplitea l arteries. Velocities in the superficial femoral artery measure up to 86 cm/s, and velocities in the popliteal artery measure up to 98 cm/s. There is three-vessel runoff to the foot. Velocities in the posterior tibial artery measure up to 125 cm/s, and velocities in the peroneal artery measured 117 cm /s. There are elevated velocities within the anterior tibial artery with velocities measuring up to 1 76 cm/s. There is blunted arterial upstroke in the distal peroneal and anterior tibial arteries. Ther e is dorsalia pedis artery is patent with velocities measuring up to 156 cm/s. Left lower extremity: Atherosclerotic plaque and irregularity are seen throughout the arteries of the left lower extremity. There are triphasic waveforms in the common femoral artery with velocities inocencia suring up to 76 cm/s. The profunda femoris is patent with velocities measuring up to 41 cm/s. There a re triphasic arterial waveforms throughout the superficial femoral and popliteal arteries. Velocities in superficial femoral artery measure up to 92 cm/s. Velocities in the popliteal artery measure up t o 81 cm/s. There is three-vessel runoff to left foot. There are elevated velocities within the liaison officer ior tibial artery which measure up to 187 cm/s. Velocities in the peroneal artery measure up to 93 cm /s. Velocities in the anterior tibial artery measure up to 152 cm/s. There is blunted arterial upstro kes in the distal posterior tibial artery. The dorsalis pedis artery is patent with velocities measur ing up to 185 cm/s. IMPRESSION: 1. There is no sonographic evidence of focal vessel occlusion throughout the arteries of the right or left lower extremity. 2. Peripheral vascular disease with elevated velocities in the calf arteries as above. This indicates some degree of stenosis. 3. There is no sonographic evidence of high-grade stenosis in the above-knee arteries of the right or left leg. Dictated: 11/22/2021 5:05 PM Transcribed: 11/22/2021 6:42 PM Rossy [id number] [email or web address] Electronically signed by: Shon Zhao M.D. 11/23/2021 7:48 AM
[2021-11-23] MEDS: INSULIN ASPART PER UNIT SC SCH ×4 (08:59→20:43)
--- NOTE | 2021-11-23 09:06 | Nephrology Progress Note ---
Date of Service November 23, 2021 Assessment & Plan (1) MARCO (acute kidney injury): Plan: * MARCO due to profound anemia * 11/21/21 Renal US - normal size kidneys, no hydronephrosis * Urine sediment negative for cellular casts * Moderate range proteinuria w/ UPCR 1.5 * Electrolyte balance is acceptable. No acute indication for INSTRUCTIONAL TECHNOLOGY COORDINATOR * Patient's age and frailty make him a poor dialysis candidate * Monitor PRP (2) CKD (chronic kidney disease) stage 3, GFR 30-59 ml/min: Plan: * CKD with baseline creatinine ~1.5 mg/dL (3) Chronic heart failure with preserved ejection fraction: Plan: * Continue Lasix 40 mg IV BID. Patient is nonoliguric * 11/23/21 Echo: LVEF 65-70%, mod MR, RVSP 50-60 mm Hg, large L pleural effusion * h/o TAVR, atrial fibrillation (4) Anemia: Plan: * Patient carries a diagonsis of "TACO - transfusion associated circulatory overload". 12/14 Echocardiogram shows high R sided heart pressure * 11/21 Epogen 10,000 units administered * Elevated ferritin precludes IV Venofer * BELLA will not correct anemia quickly enough * Agree w/ blood transfusion. Recommend administering additional 40 mg Lasix IV x1 following transfusion * Given TACO, recommend discussion w/ blood bank as to whether small blood volumes can be provided for transfusion (5) Osteomyelitis: Plan: * Antibiotic therapy narrowed to Unasyn. Admission and Anticipated Discharge Date Admission Date: November 20, 2021 Subjective Mr. Parker was evaluated in his hospital room this morning. He was alert on BiPAP therapy but unable to answer questions. Primary service has ordered transfusion w/ 1 U PRBC this am (300 cc volume). Patient had net 1 L diursis over last 24 hours Review of Systems Review of Systems: Other (unobtainable due to bipap) Physical Exam Eyes: PERRL, conjunctivae normal, anicteric sclerae Neck: trachea midline, no thyromegaly Respiratory: rales bilaterally Cardiovascular: Rate/Rhythm: regular rate and regular rhythm Gastrointestinal (Abdomen): normal bowel sounds, soft, nontender, no hepatosplenomegaly Results & Data ([facility]) Vital Signs (Past 12 Hours) Vital Signs Temp Pulse Pulse Resp BP BP Pulse Ox 11/23/21 08:01 36.3 C L 60 20 168/66 H 91 11/23/21 07:19 86 34 H 91 11/23/21 03:44 36.4 C L 59 L 18 164/69 H 93 11/23/21 02:50 60 26 H 95 11/23/21 01:15 60 11/22/21 23:17 36.3 C L 60 18 128/57 L 98 11/22/21 22:00 60 27 H 94 11/22/21 21:11 O2 Del Method FiO2 11/23/21 08:01 BiPAP 11/23/21 07:19 50 11/23/21 03:44 BiPAP 11/23/21 02:50 50 11/23/21 01:15 11/22/21 23:17 BiPAP 11/22/21 22:00 50 11/22/21 21:11 BiPAP 40 Laboratory Results Laboratory Tests 11/03/21 11/20/21 11/22/21 05:37 14:45 05:49 WBC Hgb POC Hgb Hct POC Hct Plt Count Sodium Potassium Chloride Carbon Dioxide BUN Creatinine 1.42 H 3.26 H Glucose Calcium Magnesium Albumin 2.9 L 11/22/21 11/23/21 11/23/21 21:48 06:22 06:22 WBC 7.47 Hgb 7.2 L POC Hgb 6.1 L* Hct 22.1 L POC Hct 18 L* Plt Count 80 L Sodium 136 Potassium 4.0 Chloride 105 Carbon Dioxide 22 BUN 81 H Creatinine 3.07 H Glucose 104 H Calcium 8.0 L Magnesium 2.1 Albumin Laboratory Tests 11/23/21 11/24/21 11/24/21 14:15 06:15 06:15 WBC 4.78 L Hgb 6.6 L* Hct 20.6 L* Plt Count 73 L Sodium 141 Potassium 4.6 Chloride 108 H Carbon Dioxide 23 BUN 86 H Creatinine 3.18 H Glucose 103 H Calcium 7.8 L Protein/Creatinin Ratio 1.5 H Diagnostic Findings 11/23/21 CXR - diffuse pulmonary edema c/w CHF PG Care Time/CCT Total # of Minutes Spent Total Time Spent with Patient: Total time spent is greater than 50% in coordination of care (as documented) at patient's floor/unit and/or counseling patient: Coding Level of Care Code 92706 Subseq Hosp Care Lvl 3 Diagnoses MARCO (acute kidney injury) N17.9 CKD (chronic kidney disease) stage 3, GFR 30-59 ml/min N18.30 Chronic heart failure with preserved ejection fraction I50.32 Anemia D64.9 Osteomyelitis M86.9
[2021-11-23] MEDS: FOLIC ACID 1 MG TAB PO SCH (09:19)
[2021-11-23] MEDS: FINASTERIDE 5 MG TAB PO SCH (09:19)
[2021-11-23] MEDS: METOPROLOL SUCC 50MG EXT REL TAB PO SCH (09:19)
[2021-11-23] MEDS: CYANOCOBALAMIN (B-12) 2,500 MCG TABLET SL SCH (09:19)
[2021-11-23] MEDS: AMPICILLIN/SULBACTAM SOD 3,000 MG in 0.9 % SODIUM CHLORIDE 100 ML IV SCH ×2 (09:19→20:00)
[2021-11-23] MEDS: TAMSULOSIN HCL 0.4 MG CAP PO SCH (09:19)
[2021-11-23] MEDS: amLODIPine BESYLATE 5 MG TAB PO SCH (09:19)
[2021-11-23] MEDS: FUROSEMIDE 40 MG/4 ML VIAL IV SCH ×2 (09:20→20:07)
[2021-11-23] MEDS: LANTUS PER UNIT CHARGE SQ SCH ×2 (10:27→21:22)
--- NOTE | 2021-11-23 13:26 | Hospitalist Progress Note ---
Date of Service November 23, 2021 Assessment & Plan (1) Acute respiratory failure with hypoxia and hypercapnia: Plan: Suspected secondary to pulmonary edema and fluid overload, difficult to rule out PNA however procalcitonin previously negative however sputum production worsening Increased O2 requirement, worsening hypoxia Discussed with respiratory therapy and BiPAP settings changed to 14/5 to increase tidal volume No real change on CXR today MRSA nasal swab to assess need for vancomycin/linezolid Will broaden antibiotics due to brown sputum while also keeping fluid to a minimum - cefepime IV and doxycycline PO Repeat procalcitonin, sputum culture Retest for COVID-10, RSV and influenza Continue Lasix to diurese per nephrology guidance, can likely start to reduce dose as long as I&Os remain negative, appreciate nephrology ongoing recommendations TTE 08/27/2021: EF 65%, grade 2 diastolic dysfunction, dilated RA, s/p TAVR with elevated flow velocities and prosthesis stenosis versus valve mismatch, no AI, mild to moderate MR and TR, moderate pulmonary hypertension Suspected osteomyelitis of right toe, Sacral Ulcers - XRright foot: Diffuse tissue swelling edema, bony defect with corticated margins of the lateral first distal phalangeal tuft consistent with osteo-. Multifocal osteoarthritis -Prior culture positive for staph aureus, sensitive to clinda/Dapto/Vanco and Enterococcus intermediate resistance to Cipro On admission empirically placed on daptomycin for staph/Enterococcus coverage. Clinically improving, narrowed to Unasyn -MRI unable to be performed due to incompatible ICD leads 1. There is diffuse soft tissue edema throughout the forefoot. Correlate clinically for evidence of cellulitis. 2. There is no evidence of organized fluid collection to indicate abscess on this unenhanced examination. 3. Erosive change is again suggested involving the tuft of the first distal phalanx. This is suspicious for osteomyelitis and clinical correlation will be required. 4. No additional foci of bony erosion are suspected. No acute fracture is seen. Anticipate 6-8week course of treatment for osteo - Wound consulted Acute on chronic anemia Hemoglobin 6.8 on admission, gradual downtrend last to 7.1 on 11/18, 8.0 11/08 No acute bleeding Plt 65 BUN chronically elevated, 71 on admission COVID-negative Continue B12/folate supplementation Patient substantially volume overloaded. With pulmonary edema on CXR. Attempting to diurese, transfusion of blood held due to inability to tolerate and high risk for taco. Trend. A rising hemoglobin likely with some production and hemoconcentration, once fluid status and breathing improves can consider transfusion if below 7. Continues to diurese and clinically with volume overload MARCO on CKD Creatinine baseline approximately 1.41.7 DDx includes ATN/cardiorenal Acutely elevated to 3.26 on admission, Cr improving but BUN continues to trend up potentially causing the patient's lethargy Follow creatinine daily, nephrology consulted. - Avoid nephrotoxins - Trend BMP - Bladder scan pending for retention given hx of LUTS S/p TAVR, history of paroxysmal A. fib On warfarin Goal INR 2.5-3.5 Warfarin on hold given INR> 3.5 Type II DM BSG AC/at bedtime A1c this past month well controlled Continue SSI Follow-up for SGLT2 as outpatient, prior GLP1 discontinue due to hypoglycemia Hyperlipidemia Continue simvastatin BPH with LUTS Continue tamsulosin (2) Toe osteomyelitis, right: (3) Chronic heart failure with preserved ejection fraction: (4) MARCO (acute kidney injury): (5) CKD (chronic kidney disease) stage 3, GFR 30-59 ml/min: (6) DM II (diabetes mellitus, type II), controlled: (7) Hypercholesterolemia: (8) Hyperglycemia: (9) S/P TAVR (transcatheter aortic valve replacement): (10) Stage III pressure ulcer of left buttock: (11) Stage III pressure ulcer of right buttock: (12) Venous stasis ulcer: (13) Urinary retention: (14) Osteomyelitis: (15) Pulmonary edema: Plan DVT prophylaxis: INR supratherapeutic Diet: Diabetic, low-salt CODE STATUS: DNR/DNI Admission and Anticipated Discharge Date Admission Date: November 20, 2021 Subjective Patient seen while on BiPAP. He was alert and orientated x3. We discussed poor prognosis of his medical conditions. He reiterated he did not want to be intubated or be put on dialysis. We discussed withdrawing care and making him comfortable however despite not liking the BiPAP he wished to carry on with the current treatment plan. We discussed his increasing oxygen requirement. Discussed care with his son at bedside and advised to make family aware of worsening nature of his father illness. Advised patients to come in and see the patient. Review of Systems Review of Systems: All systems reviewed & are unremarkable except as noted in Subjective Physical Exam Constitutional: well developed and + acute distress (respiratory); + not well nourished ENMT: Mouth: + dry oral mucous membranes Neck: trachea midline Respiratory: + respiratory distress, + labored breathing, + retractions, + uses accessory muscles and + prolonged expiratory phase Auscultation: + rhonchi (bilateral); no diminished lung sounds, no crackles, no rales and no wheezes Cardiovascular: RRR, no murmur, no edema Gastrointestinal (Abdomen): Inspection/Auscultation: abdomen not distended Percussion/Palpation: abdomen soft; abdomen nontender, no guarding and abdomen not rigid Skin: no rashes, warm and dry (no areas of cellulitis) Neurologic: awake; not confused Psychiatric: Orientation: alert and oriented x 3 Results & Data Results & Data ([facility]) Vital Signs (Past 12 Hours) Vital Signs Temp Pulse Pulse Resp BP BP Pulse Ox 11/23/21 11:13 36.3 C L 60 30 H 174/72 H 96 11/23/21 11:10 60 31 H 96 11/23/21 08:00 67 11/23/21 08:00 11/23/21 08:00 11/23/21 08:01 36.3 C L 60 20 168/66 H 91 11/23/21 07:19 86 34 H 91 11/23/21 03:44 36.4 C L 59 L 18 164/69 H 93 11/23/21 02:50 60 26 H 95 Pulse Ox O2 Del Method O2 Del Method FiO2 11/23/21 11:13 BiPAP 11/23/21 11:10 50 11/23/21 08:00 11/23/21 08:00 BiPAP 50 11/23/21 08:00 90 BiPAP 11/23/21 08:01 BiPAP 11/23/21 07:19 50 11/23/21 03:44 BiPAP 11/23/21 02:50 50 PG Care Time/CCT Total # of Minutes Spent Total Time Spent with Patient: Total time spent is greater than 50% in coordination of care (as documented) at patient's floor/unit and/or counseling patient: Coding Level of Care Code 07218 Subseq Hosp Care Lvl 3 Diagnoses Acute respiratory failure with hypoxia and hypercapnia J96.01; J96.02 Toe osteomyelitis, right M86.9 Chronic heart failure with preserved ejection fraction I50.32 MARCO (acute kidney injury) N17.9 CKD (chronic kidney disease) stage 3, GFR 30-59 ml/min N18.30 DM II (diabetes mellitus, type II), controlled E11.9 Hypercholesterolemia E78.00 Hyperglycemia R73.9 S/P TAVR (transcatheter aortic valve replacement) Z95.2 Stage III pressure ulcer of left buttock L89.323 Stage III pressure ulcer of right buttock L89.313 Venous stasis ulcer I83.009; L97.909 Urinary retention R33.9 Osteomyelitis M86.9 Pulmonary edema J81.1
[2021-11-23 13:34] LABS: Allen Test Pos (Pos); Base Excess ABG -4.3 mEq/L (-9-1.8); HCO3 ABG 23 mmol/L (19-24); Oxygen Saturation ABG 69.3 % (90-95); PCO2 ABG 52 mmHg (35-46); PO2 ABG 44 mmHg (80-95); pH ABG 7.26 (7.35-7.45)
--- NOTE | 2021-11-23 13:35 | XRay Report ---
SINGLE VIEW CHEST CLINICAL HISTORY: Hypoxia. FINDINGS: 2 AP, portable, upright chest radiographs are compared to study dated 11/21/2021. The examin ation is degraded by portable technique and patient rotation. A 2-lead cardiac pacemaker is unchanged in position and partially obscures the left chest. The patient is status post midline sternotomy and cardiac valve surgery. The heart is enlarged noting atherosclerotic calcification of the thoracic ar ea. There is pulmonary vascular congestion with evidence of interstitial edema. There are layering pl eural effusions with dependent consolidation. No pneumothorax is seen. The skeletal structures are os teopenic. There are healed right-sided rib fractures. Advanced arthritic change and deformity is seen in the right proximal humerus. IMPRESSION: 1. Cardiomegaly and cardiac pacemaker with evidence of congestive failure and pulmonary edema. This i s similar to the 11/21/2021 examination. 2. Layering pleural effusions with dependent consolidation. ACT 112: Negative or not required by law. Electronically signed by: Shon Zhao M.D. 11/23/2021 1:34 PM
[2021-11-23 14:51] LABS: Creatinine Urine Random 67.7 mg/dl; Protein Creatinine Ratio Urine 1.5 (0-0.2); Total Protein Urine Random 103.8 mg/dl (0-11.9)
[2021-11-23] MEDS ORDERED: WARFARIN SOD 2.5 MG TAB PO SCH (16:00)
--- NOTE | 2021-11-23 17:23 | XCELERA ---
[id number]
[2021-11-23] MEDS: SIMVASTATIN 20 MG TAB PO SCH (20:01)
[2021-11-23] MEDS ORDERED: CEFEPIME 2,000 MG in SYRINGE 0 ML IV SCH (20:30)
[2021-11-23] MEDS: CEFEPIME 1,000 MG in SYRINGE 0 ML IV SCH (21:22)
[2021-11-23] MEDS: DOXYCYCLINE HYCLATE 100 MG CAP PO SCH (22:06)
[2021-11-23 23:20] LABS: Influenza A virus by PCR Negative (Neg); Influenza B virus by PCR Negative (Neg); RSV by PCR Negative (Neg); SARS CoV2 RNA(COVID-19) InHosp NEGATIVE (Negative)
[2021-11-24 06:39] LABS: Base Excess ABG -4.2 mEq/L (-9-1.8); HCO3 ABG 22 mmol/L (19-24); Oxygen Saturation ABG 99.6 % (90-95); PCO2 ABG 43 mmHg (35-46); PO2 ABG 178 mmHg (80-95); pH ABG 7.31 (7.35-7.45)
[2021-11-24 06:55] LABS: Hematocrit (blood only) 20.6 % (40.1-51.0); Hemoglobin 6.6 g/dl (14.0-18.0); Mean Corpuscular Hemoglobin 29.5 pg (25.0-34.0); Platelet Count 73 K/uL (130-400); RDW Coefficient of Variation 19.4 % (11.5-14.5); RDW Standard Deviation 64.1 fL (36.4-46.3); Red Blood Count 2.24 M/uL (4.63-6.08); White Blood Count 4.78 K/ul (4.8-10.8)
[2021-11-24 06:57] LABS: Allen Test Pos (Pos)
[2021-11-24] MEDS ORDERED: SODIUM CHLORIDE 0.9% 250 ML IV PRN (07:02)
[2021-11-24 07:13] LABS: Basophilic Stippling 1+; Basophils # (auto) 0.01 K/uL (0-0.2); Basophils % (auto) 0.2 %; Echinocytes 1+; Immature Granulocytes # (auto) 0.09 K/uL (0.00-0.02); Immature Granulocytes % (auto) 1.9 %; Lymphocytes # (auto) 0.31 K/uL (1.2-3.4); Lymphocytes % (auto) 6.5 %; Monocytes # (auto) 0.21 K/uL (0.24-0.82); Monocytes % (auto) 4.4 %; Neutrophils # (auto) 4.16 K/uL (1.4-6.5)
[2021-11-24 07:20] LABS: Calcium 7.8 mg/dl (8.5-10.1); Creatinine Clr Calc Pharmacy 16.6 ml/min; Est GFR (African American) 19.4 ml/min; Est GFR (Non-African American) 16.8 ml/min; Potassium 4.6 mmol/L (3.5-5.1)
[2021-11-24 07:32] LABS: INR 4.5 (0.9-1.1)
[2021-11-24] MEDS: INSULIN ASPART PER UNIT SC SCH ×4 (08:21→20:17)
[2021-11-24] MEDS ORDERED: FUROSEMIDE 40 MG/4 ML VIAL IV SCH ×2 (09:00)
[2021-11-24] MEDS: FUROSEMIDE 40 MG/4 ML VIAL IV SCH ×2 (09:47→23:27)
[2021-11-24] MEDS: CEFEPIME 1,000 MG in SYRINGE 0 ML IV SCH ×2 (09:55→20:17)
[2021-11-24] MEDS: LANTUS PER UNIT CHARGE SQ SCH ×2 (10:52→20:18)
[2021-11-24] MEDS ORDERED: PHYTONADIONE 2.5 MG in DEXTROSE 5% 50 ML IV ONE ×2 (11:00→13:54)
[2021-11-24] MEDS: FINASTERIDE 5 MG TAB PO SCH (12:49)
[2021-11-24] MEDS: amLODIPine BESYLATE 5 MG TAB PO SCH (12:49)
[2021-11-24] MEDS: DOXYCYCLINE HYCLATE 100 MG CAP PO SCH (12:49)
[2021-11-24] MEDS: FOLIC ACID 1 MG TAB PO SCH (12:49)
[2021-11-24] MEDS: CYANOCOBALAMIN (B-12) 2,500 MCG TABLET SL SCH (12:49)
[2021-11-24] MEDS: METOPROLOL SUCC 50MG EXT REL TAB PO SCH (12:50)
[2021-11-24] MEDS: TAMSULOSIN HCL 0.4 MG CAP PO SCH (12:50)
--- NOTE | 2021-11-24 13:45 | Pulmonary Consultation ---
Date of Consultation November 24, 2021 Assessment & Plan (1) Pulmonary edema: (2) Hemoptysis: (3) Acute hypoxemic respiratory failure: Plan Impression: 86-year-old male with valvular heart disease, pulmonary hypertension, diastolic dysfunction, chronic kidney disease anticoagulated ad mitted with toe osteomyelitis now with hypoxemic respiratory failure with diffuse pulmonary infiltrates. The differential would include hydrostatic pulmonary edema, pulmonary edema secondary to diastolic heart failure and valvular heart disease, as well as pulmonary hemorrhage. This does not appear to be consistent with a transfusion reaction or transfusion associated lung injury however transfusion associated circulatory overload may have a similar pattern. He is anemic and thrombocytopenic and leukopenic Recommendations: 1. Conducted a long and extensive discussion with the patient's children at bedside. We reviewed his medical issues and the differential diagnosis for his hypoxemic respiratory failure. Could consider bronchoscopy with BAL to diagnose pulmonary hemorrhage however the patient's tenuous respiratory status would make intubation unlikely and the patient has expressed a desire to avoid invasive procedures to this point. Would recommend discontinuing his anticoagulation. Risk of stroke with his TAVR is quite high however if this is pulmonary hemorrhage, consideration for reversal of anticoagulation may be a consideration. Urinalysis did show greater than 30 red cells per high-power field and 3+ blood. We will send labs for possible pulmonary renal syndrome. Could consider steroids for alveolar hemorrhage although this would be empiric and subject the patient to additional risks. Patient's family expressed understanding and wants to try to reverse any underlying pathology if possible without resorting to heroic measures. 2. Agree with empiric diuresis. 3. I do not see a strong indication for antibiotics at this point time as my suspicion for pneumonia is quite low. Will defer to primary service. 4. The patient and his family were advised that BiPAP needs to be a temporizing measure to either improvement or proceeding with intubation mechanical ventilation. As the patient's already been on it for 48 hours, would not recommend continued BiPAP. Discussed with bedside nurse and will pursue a trial of heated high flow oxygen therapy as the patient has not demonstrated hypercapnic respiratory failure. He does have a metabolic acidosis which is more concerning. Will defer to the patient's primary service evaluation and management and whether or not bicarb or additional interventions are required. Work-up of the patient's pancytopenia is also recommended and deferred to the patient's primary service. 5. Patient's overall prognosis is quite guarded. Given his multiorgan system dysfunction, palliative measures would certainly not be inappropriate. This was briefly broached with the family and they expressed understanding and stated they want him kept comfortable but are willing to pursue reversible etiologies at this point time. Patient's overall prognosis is very guarded at this point in time. We will see how he responds to empiric therapy. History of Present Illness Attending Physician: Nilton Hsu MD History of Present Illness Asked by hospitalist to evaluate this patient with hypoxemic respiratory failure and diffuse pulmonary infiltrates. History is obtained from discussion with the hospitalist, review the electronic medical record, and interviewed the patient's family at bedside. The patient is somewhat obtunded on full face BiPAP and not able to provide contributory history. Patient is an 86-year-old male with a complicated history of diastolic heart failure, aortic stenosis status post TAVR hypertension and hyperlipidemia as well as atrial fibrillation and diabetes who was admitted to the hospital 11/20/2021 admitted from the wound care clinic with pressure ulcers and possible osteomyelitis with anemia. He has concomitant chronic kidney disease. He was given a transfusion 11/20 and developed rapidly progressive hypoxemia shortness of breath and diffuse pulmonary infiltrates. There was questionable transfusion reaction versus transfusion associated circulatory overload. Transfusion reaction panel was negative. The patient has essentially been BiPAP dependent for the last 48 hours. According to his family, he has coughed up some blood- tinged phlegm. He has been aggressively diuresed and has had improvement in his lower extremity edema but has not seen significant improvement in his oxygen requirement. The patient has declined dialysis as an option and has declined additional resuscitative efforts including intubation mechanical ventilation but has been agreeable to BiPAP up to this point. He has been placed on broad- spectrum antibiotics with a negative procalcitonin. Allergies Allergy/AdvReac Type Severity Reaction Status Date / Time Blood Transfusion AdvReac Intermediate TACO Uncoded 11/21/21 05:47 Home Medications Medication Instructions Recorded Confirmed Type finasteride 5 mg tablet 5 mg PO QAM 01/17/21 11/20/21 History metoprolol succinate 50 mg 50 mg PO QAM 01/17/21 11/20/21 History tablet,extended release 24 hr simvastatin 20 mg tablet 20 mg PO HS 01/17/21 11/20/21 History tamsulosin 0.4 mg capsule 0.4 mg PO QAM 01/17/21 11/20/21 History triamcinolone acetonide 0.1 % 1 applic topical BID Right Leg 10/01/21 11/20/21 History topical ointment Wound folic acid 1 mg tablet 1 mg PO QAM #30 tabs 10/07/21 11/20/21 Rx amlodipine 5 mg tablet 5 mg PO QAM 10/25/21 11/20/21 History amoxicillin 500 mg tablet 2,000 mg PO DIRECTED PRN 1 HOUR 10/25/21 11/20/21 History PRIOR TO DENTAL PROCEDURES. cyanocobalamin (vitamin B-12) 5,000 mcg PO QAM 10/25/21 11/20/21 History 5,000 mcg capsule warfarin 5 mg tablet See Rx Instructions .Route .COMPLEX 10/25/21 11/20/21 History furosemide 40 mg tablet 40 mg PO DAILY #60 tabs 11/11/21 11/20/21 Rx glipizide 5 mg tablet 5 mg PO BID 11/18/21 11/20/21 History Patient History Medical History Admitted to intensive care unit Anemia Anemia Anemia Anticoagulant long-term use Aortic stenosis BPH w urinary obs/LUTS Breath shortness CAD (coronary atherosclerotic disease) Chronic heart failure with preserved ejection fraction Colon cancer Coronary artery disease Dark stools Electrolyte abnormality Elevated troponin HTN (hypertension) Hypercholesterolemia Hypertension Hypoglycemia associated with diabetes Hypoxia Lower extremity edema Paroxysmal atrial fibrillation Subdural hematoma Vitamin B12 deficiency (dietary) anemia Weakness Surgical History H/O heart bypass surgery History of heart bypass surgery History of partial colectomy S/P TAVR (transcatheter aortic valve replacement) Status post evacuation of subdural hematoma Family History Other Family history non-contributory Social History Smoking Status: Former smoker Tobacco Type: Cigarettes Second Hand Exposure: No; Do You Dip or Chew Tobacco: No; Tobacco Cessation Education Requested by Patient: No Hx Alcohol Use: No Hx Substance Use: No Preferred Language: [place] Communication Ability: Effective Auditor Medical Claims Required: No Beliefs That Will Affect Care: None marital status: Current Living Situation: Personal Care Facility current occupational status: employed and retired How many Children do You have: 3 Other Information That Helps Us Care for You: No Feels Safe at Home: Yes Safety Concerns: Feels Safe At This Time Assistive Devices: Cane, Walker and Wheelchair Review of Systems Review of Systems: Unobtainable due to reduced consciousness Physical Exam Constitutional: well developed and + acute distress (respiratory); + not well nourished ENMT: Mouth: + dry oral mucous membranes Neck: trachea midline Respiratory: + respiratory distress, + labored breathing, + retractions, + uses accessory muscles and + prolonged expiratory phase Auscultation: + rhonchi (bilateral); no diminished lung sounds, no crackles, no rales and no wheezes Cardiovascular: Rate/Rhythm: + irregularly irregular Heart Sounds: normal S1, normal S2 and + murmur Extremities: no edema Gastrointestinal (Abdomen): Inspection/Auscultation: abdomen not distended Percussion/Palpation: abdomen soft; abdomen nontender, no guarding and abdomen not rigid Skin: no rashes, warm and dry (no areas of cellulitis) Neurologic: awake; not confused Psychiatric: Orientation: alert and oriented x 3 Results & Data Results & Data ([facility]) Vital Signs (Past 12 Hours) Vital Signs Temp Pulse Pulse Resp BP BP Pulse Ox 11/24/21 12:40 36.2 C L 60 16 176/74 H 94 11/24/21 11:40 36.3 C L 62 18 171/68 H 94 11/24/21 10:40 36.3 C L 60 16 160/67 H 94 11/24/21 10:10 36.2 C L 67 16 157/60 H 94 11/24/21 10:46 60 28 H 99 11/24/21 09:55 36.0 C L 60 16 152/69 H 100 11/24/21 09:37 36.2 C L 60 18 150/67 H 99 11/24/21 07:30 65 23 100 11/24/21 07:56 35.6 C L 63 26 H 138/65 100 11/24/21 03:50 60 22 99 11/24/21 03:29 36.3 C L 60 22 102/61 100 O2 Del Method FiO2 11/24/21 12:40 11/24/21 11:40 11/24/21 10:40 11/24/21 10:10 11/24/21 10:46 70 11/24/21 09:55 11/24/21 09:37 11/24/21 07:30 80 11/24/21 07:56 BiPAP 11/24/21 03:50 80 11/24/21 03:29 BiPAP Critical Care Results & Data Vital Signs (Past 12 Hours) Vital Signs Temp Pulse Pulse Resp BP BP Pulse Ox 11/24/21 12:40 36.2 C L 60 16 176/74 H 94 11/24/21 11:40 36.3 C L 62 18 171/68 H 94 11/24/21 10:40 36.3 C L 60 16 160/67 H 94 11/24/21 10:10 36.2 C L 67 16 157/60 H 94 11/24/21 10:46 60 28 H 99 11/24/21 09:55 36.0 C L 60 16 152/69 H 100 11/24/21 09:37 36.2 C L 60 18 150/67 H 99 11/24/21 07:30 65 23 100 11/24/21 07:56 35.6 C L 63 26 H 138/65 100 11/24/21 03:50 60 22 99 11/24/21 03:29 36.3 C L 60 22 102/61 100 O2 Del Method FiO2 11/24/21 12:40 11/24/21 11:40 11/24/21 10:40 11/24/21 10:10 11/24/21 10:46 70 11/24/21 09:55 11/24/21 09:37 11/24/21 07:30 80 11/24/21 07:56 BiPAP 11/24/21 03:50 80 11/24/21 03:29 BiPAP Lab & Micro Results (Past 24 Hours) RBC 2.24 M/uL (4.63-6.08) L 11/24/21 WBC 4.78 K/ul (4.8-10.8) L 11/24/21 Hgb 6.6 g/dl (14.0-18.0) L* 11/24/21 Hct 20.6 % (40.1-51.0) L* 11/24/21 MCV 92.0 fL (80.0-100.0) 11/24/21 MCH 29.5 pg (25.0-34.0) 11/24/21 MCHC 32.0 g/dL (32.0-36.0) 11/24/21 RDW Standard Deviation 64.1 fL (36.4-46.3) H 11/24/21 RDW Coefficient of Variation 19.4 % (11.5-14.5) H 11/24/21 Plt Count 73 K/uL (130-400) L 11/24/21 MPV 10.0 fL (9.4-12.4) 11/24/21 Neutrophils (%) (Auto) 87.0 % 11/24/21 Lymphocytes (%) (Auto) 6.5 % 11/24/21 Monocytes # (Auto) 0.21 K/uL (0.24-0.82) L 11/24/21 Eosinophils # (Auto) 0.00 K/uL (0-0.50) 11/24/21 Immature Granulocyte % (Auto) 1.9 % 11/24/21 Neutrophils # (Auto) 4.16 K/uL (1.4-6.5) 11/24/21 Lymphocytes # (Auto) 0.31 K/uL (1.2-3.4) L 11/24/21 Monocytes # (Auto) 0.21 K/uL (0.24-0.82) L 11/24/21 Eosinophils # (Auto) 0.00 K/uL (0-0.50) 11/24/21 Basophils # (Auto) 0.01 K/uL (0-0.2) 11/24/21 Immature Granulocyte # (Auto) 0.09 K/uL (0.00-0.02) H 11/24 Basophilic Stippling 1+ 11/24/21 Echinocytes 1+ 11/24/21 Na 141 mmol/L (136-145) 11/24/21 K 4.6 mmol/L (3.5-5.1) 11/24/21 Cl 108 mmol/L (98-107) H 11/24/21 CO2 23 mmol/L (21-32) 11/24/21 Anion Gap 10 (3-11) 11/24/21 BUN 86 mg/dl (6-23) H 11/24/21 Creatinine 3.18 mg/dl (0.6-1.4) H 11/24/21 Estimated GFR ( Amer) 19.4 ml/min 11/24/21 Estimated GFR (Non-Af Amer) 16.8 ml/min 11/24/21 BUN/Creatinine Ratio 27.0 (10-20) H 11/24/21 Glu 103 mg/dl (70-99(Fasting)) H 11/24/21 Ca 7.8 mg/dl (8.5-10.1) L 11/24/21 Calcium Level 7.8 mg/dl (8.5-10.1) L 11/24/21 06:15 Prothromb Time International Ratio 4.5 (0.9-1.1) H 11/24/21 06 :15 Arterial Blood pH 7.31 (7.35-7.45) L 11/24/21 06:21 Arterial Blood Partial Pressure CO2 43 mmHg (35-46) 11/24/21 06 :21 Arterial Blood Partial Pressure O2 178 mmHg (80-95) H 11/24/21 06:21 Arterial Blood HCO3 22 mmol/L (19-24) 11/24/21 06:21 Arterial Blood Base Excess -4.2 mEq/L (-9-1.8) 11/24/21 06:21 Arterial Blood Oxygen Saturation 99.6 % (90-95) H 11/24/21 06:2 1 Blood Gas Oxygen Given 11/24/21 06:21 Scott Test Pos (Pos) 11/24/21 06:21 Microbiology 11/21/21 10:46 Aerobic Blood Culture - Preliminary Blood No growth in Aerobic bottle after 48 hours. Anaerobic Blood Culture - Preliminary No growth in Anaerobic bottle after 48 hours. 11/21/21 10:37 Aerobic Blood Culture - Preliminary Blood No growth in Aerobic bottle after 48 hours. Anaerobic Blood Culture - Preliminary No growth in Anaerobic bottle after 48 hours. I & O Totals 24 Hours 11/23/21 11/24/21 11/25/21 06:59 06:59 06:59 Intake Total 276 / 276 266 / 266 360.25 / 360.25 Output Total 1300 / 1300 1025 / 1025 Balance -1024 / -1024 -759 / -759 360.25 / 360.25 Cumulative 11/20/21 13:51 thru 11/24/21 13:10 Intake Total 1332.25 Output Total 4225 Balance -2892.75 RT Ventilator Mngmt (Last Documented) Ventilator Ordered Settings Respiratory Rate 16 11/24/21 12:40 Fraction of Inspired Oxygen 70 11/24/21 10:46 Ventilator - PT Measurements Respiratory Rate 16 PG Care Time/CCT Total # of Minutes Spent Total Time Spent with Patient: Total time spent is greater than 50% in coordination of care (as documented) at patient's floor/unit and/or counseling patient: Coding Level of Care Code 20108 Initial Inpt Care Lvl 3 Diagnoses Pulmonary edema J81.1 Hemoptysis R04.2 Acute hypoxemic respiratory failure J96.01
[2021-11-24] MEDS ORDERED: DEXTROSE 5% IV ONE (14:15)
[2021-11-24] MEDS ORDERED: PHYTONADIONE IV ONE (14:15)
[2021-11-24] MEDS: methylPREDNISolone 125 MG in SYRINGE 0 ML IV SCH ×2 (15:14→21:40)
[2021-11-24] MEDS ORDERED: WARFARIN SOD 2.5 MG TAB PO SCH (16:00)
[2021-11-24 19:21] LABS: A calco-baum cmplx NotReported Not Detected (NotDetected); Bact fragilis Not Reported Not Detected (NotDetected); C auris Not Reported Not Detected (NotDetected); Calbicans Not Reported Not Detected (NotDetected); Candida glabrata Not Reported Not Detected (NotDetected); Candida krusei Not Reported Not Detected (NotDetected); Cneoformans/gatti Not Reported Not Detected (NotDetected); Cparapsilosis Not Reported Not Detected (NotDetected); Ctropicalis Not Reported Not Detected (NotDetected); E cloacae compx Not Reported Not Detected (NotDetected); Efaecalis Not Reported Not Detected (NotDetected); Efaecium Not Reported Not Detected (NotDetected); Enterobacterales Not Reported Not Detected (NotDetected); Escherichia coli Not Reported Not Detected (NotDetected); H influenzae Not Reported Not Detected (NotDetected); K aerogenes Not Reported Not Detected (NotDetected); Koxytoca Not Reported Not Detected (NotDetected); Kpneumoniae grp Not Reported Not Detected (NotDetected); Lmonocyt Not Reported Not Detected (NotDetected); N meningitidis Not Reported Not Detected (NotDetected); P aeruginosa Not Reported Not Detected (NotDetected); Proteus spp Not Reported Not Detected (NotDetected); Salmonella spp Not Reported Not Detected (NotDetected); Smarcescens Not Reported Not Detected (NotDetected); Staph lugdunensis Not Reported Not Detected (NotDetected); Staph spp. Not Reported Not Detected (NotDetected); Staphaureus Not Reported Not Detected (NotDetected); Staphepi Not Reported Not Detected (NotDetected); Stenmaltophilia Not Reported Not Detected (NotDetected); Strep agal(GrpB) Not Reported Not Detected (NotDetected); Strep pneum Not Reported Not Detected (NotDetected); Strep pyog (GrpA) Not Reported Not Detected (NotDetected); Strep spp Not Reported DETECTED (NotDetected)
--- NOTE | 2021-11-24 19:24 | Hospitalist Progress Note ---
Date of Service November 24, 2021 Assessment & Plan (1) Acute respiratory failure with hypoxia and hypercapnia: Plan: Suspected secondary to pulmonary edema and fluid overload, difficult to rule out PNA however procalcitonin previously negative however sputum production worsening, possible pulmonary hemorrhage Increased O2 requirement, worsening hypoxia MRSA nasal swab to assess need for vancomycin/linezolid Will broaden antibiotics due to brown sputum while also keeping fluid to a minimum - cefepime IV and doxycycline PO Repeat procalcitonin normal, sputum culture Retest for COVID-10, RSV and influenza Continue Lasix to diurese per nephrology guidance, can likely start to reduce dose as long as I&Os remain negative, will continue on Lasix 40mg IV daily TTE 08/27/2021: EF 65%, grade 2 diastolic dysfunction, dilated RA, s/p TAVR with elevated flow velocities and prosthesis stenosis versus valve mismatch, no AI, mild to moderate MR and TR, moderate pulmonary hypertension (2) Pulmonary hemorrhage: Plan: Suspected given unchanged CXR and O2 requirement worsening despite successful diuresis Anticoagulation will be reversed. Will consult hematology regarding thrombocytopenia. Pulm consulted and starting on empiric IV steroids rather than more invasive bronchoscopy to confirm diagnosis INR reversed with 10mg IV vitamin K, will repeat this afternoon to determine if further vitamin K warranted (3) Pulmonary edema: (4) Acute on chronic heart failure with preserved ejection fraction: Plan: Given increasing sodium, concern we are causing some intravascular depletion and likely need to reduce rate of diruresis. Will decrease Lasix to 40mg IV daily. Aim lower daily diuresis of 500ml/day. (5) Toe osteomyelitis, right: Plan: - XRright foot: Diffuse tissue swelling edema, bony defect with corticated margins of the lateral first distal phalangeal tuft consistent with osteo-. Multifocal osteoarthritis -Prior culture positive for staph aureus, sensitive to clinda/Dapto/Vanco and Enterococcus intermediate resistance to Cipro On admission empirically placed on daptomycin for staph/Enterococcus coverage. Clinically improving, narrowed to Unasyn -MRI unable to be performed due to incompatible ICD leads 1. There is diffuse soft tissue edema throughout the forefoot. Correlate clinically for evidence of cellulitis. 2. There is no evidence of organized fluid collection to indicate abscess on this unenhanced examination. 3. Erosive change is again suggested involving the tuft of the first distal phalanx. This is suspicious for osteomyelitis and clinical correlation will be required. 4. No additional foci of bony erosion are suspected. No acute fracture is seen. Anticipate 6-8week course of treatment for osteo - Wound consulted (6) MARCO (acute kidney injury): Plan: Creatinine baseline approximately 1.41.7 DDx includes ATN/cardiorenal Acutely elevated to 3.26 on admission, Cr stable but BUN continues to trend up potentially causing the patient's lethargy Follow creatinine daily, nephrology consulted. - Trend BMP (7) CKD (chronic kidney disease) stage 3, GFR 30-59 ml/min: (8) DM II (diabetes mellitus, type II), controlled: Plan: BSG AC/at bedtime A1c this past month well controlled Continue SSI Follow-up for SGLT2 as outpatient, prior GLP1 discontinue due to hypoglycemia (9) Hypercholesterolemia: Plan: Continue simvastatin (10) S/P TAVR (transcatheter aortic valve replacement): Plan: On warfarin Goal INR 2.5-3.5, however given concern for pulmonary hemorrhage will give vitamin K to reverse this (11) Stage III pressure ulcer of left buttock: Plan: continue antibiotics as above (12) Stage III pressure ulcer of right buttock: (13) Venous stasis ulcer: (14) Urinary retention: Plan: hankins catheter in place (15) Anemia: Plan: Hemoglobin 6.8 on admission, gradual downtrend last to 7.1 on 11/18, 8.0 11/08 Continue B12/folate supplementation Hemoglobin decreased to 6.6 today. Given current fluid status much improved will transfuse 1 unit of blood and repeat H&H this afternoon Plan DVT prophylaxis: INR supratherapeutic Diet: Diabetic, low-salt CODE STATUS: DNR/DNI Admission and Anticipated Discharge Date Admission Date: November 20, 2021 Subjective Desaturations overnight to 50-80% intermittently. Required increased FiO2 with BiPAP 80% this morning - although this appears to be somewhat an overtreatment based on this mornings ABG. Care discussed with his daughter at bedside. Unable for patient to provide much history due to respiratory distress - he denies any pain, tolerating BiPAP Review of Systems Review of Systems: All systems reviewed & are unremarkable except as noted in Subjective Physical Exam Constitutional: well developed and + acute distress (respiratory); + not well nourished ENMT: Mouth: + dry oral mucous membranes Neck: trachea midline Respiratory: + respiratory distress, + labored breathing, + retractions, + uses accessory muscles and + prolonged expiratory phase Auscultation: + rhonchi (bilateral); no diminished lung sounds, no crackles, no rales and no wheezes Cardiovascular: RRR, no murmur, no edema Gastrointestinal (Abdomen): Inspection/Auscultation: abdomen not distended Percussion/Palpation: abdomen soft; abdomen nontender, no guarding and abdomen not rigid Skin: no rashes, warm and dry (no areas of cellulitis) Neurologic: awake; not confused Psychiatric: Orientation: alert and oriented x 3 Results & Data Results & Data ([facility]) Vital Signs (Past 12 Hours) Vital Signs Temp Pulse Pulse Resp BP BP Pulse Ox 11/24/21 19:00 36.8 C 60 20 166/72 H 95 11/24/21 15:20 69 31 H 95 11/24/21 08:00 11/24/21 17:00 11/24/21 13:36 36.2 C L 60 18 161/71 H 94 11/24/21 12:40 36.2 C L 60 16 176/74 H 94 11/24/21 11:40 36.3 C L 62 18 171/68 H 94 11/24/21 10:40 36.3 C L 60 16 160/67 H 94 11/24/21 10:10 36.2 C L 67 16 157/60 H 94 11/24/21 10:46 60 28 H 99 11/24/21 09:55 36.0 C L 60 16 152/69 H 100 11/24/21 09:37 36.2 C L 60 18 150/67 H 99 11/24/21 07:30 65 23 100 11/24/21 07:56 35.6 C L 63 26 H 138/65 100 Pulse Ox O2 Del Method O2 Del Method FiO2 11/24/21 19:00 BiPAP 11/24/21 15:20 60 11/24/21 08:00 BiPAP 80 11/24/21 17:00 97 BiPAP 11/24/21 13:36 11/24/21 12:40 11/24/21 11:40 11/24/21 10:40 11/24/21 10:10 11/24/21 10:46 70 11/24/21 09:55 11/24/21 09:37 11/24/21 07:30 80 11/24/21 07:56 BiPAP PG Care Time/CCT Total # of Minutes Spent Total Time Spent with Patient: Total time spent is greater than 50% in coordination of care (as documented) at patient's floor/unit and/or counseling patient: Coding Level of Care Code 45638 Subseq Hosp Care Lvl 3 Diagnoses Acute respiratory failure with hypoxia and hypercapnia J96.01; J96.02 Pulmonary hemorrhage R04.89 Pulmonary edema J81.1 Acute on chronic heart failure with preserved ejection fraction I50.33 Toe osteomyelitis, right M86.9 MARCO (acute kidney injury) N17.9 CKD (chronic kidney disease) stage 3, GFR 30-59 ml/min N18.30 DM II (diabetes mellitus, type II), controlled E11.9 Hypercholesterolemia E78.00 S/P TAVR (transcatheter aortic valve replacement) Z95.2 Stage III pressure ulcer of left buttock L89.323 Stage III pressure ulcer of right buttock L89.313 Venous stasis ulcer I83.009; L97.909 Urinary retention R33.9 Anemia D64.9
[2021-11-24 20:04] LABS: Streptococcus spp DETECTED (NotDetected)
[2021-11-24 20:59] LABS: Hematocrit (blood only) 27.8 % (40.1-51.0); Hemoglobin 9.2 g/dl (14.0-18.0)
[2021-11-24 21:09] LABS: INR 2.4 (0.9-1.1)
[2021-11-24] MEDS: SIMVASTATIN 20 MG TAB PO SCH (21:41)
[2021-11-24] MEDS: SODIUM BICARBONATE 650 MG TAB PO SCH (21:43)
[2021-11-24] MEDS ORDERED: PHYTONADIONE 5 MG in DEXTROSE 5% 50 ML IV ONE (21:50)
[2021-11-25 02:43] LABS: Hemoglobin 8.5 g/dl (14.0-18.0); Mean Platelet Volume 9.5 fL (9.4-12.4); Platelet Count 75 K/uL (130-400)
[2021-11-25 03:01] LABS: Basophils # (auto) 0.01 K/uL (0-0.2); Basophils % (auto) 0.2 %; Echinocytes 1+; INR 1.9 (0.9-1.1); Immature Granulocytes # (auto) 0.09 K/uL (0.00-0.02); Lymphocytes # (auto) 0.13 K/uL (1.2-3.4); Lymphocytes % (auto) 2.9 %; Mean Corpuscular Hemoglobin 30.1 pg (25.0-34.0); Mean Corpuscular Hgb Conc 32.7 g/dL (32.0-36.0); Mean Corpuscular Volume 92.2 fL (80.0-100.0); Monocytes # (auto) 0.02 K/uL (0.24-0.82); Monocytes % (auto) 0.4 %; Neutrophils # (auto) 4.25 K/uL (1.4-6.5); Neutrophils % (auto) 94.5 %; Ovalocytes 1+; Prothrombin Time 19.7 Seconds (9.0-12.0); RDW Coefficient of Variation 19.7 % (11.5-14.5); RDW Standard Deviation 64.8 fL (36.4-46.3); Red Blood Count 2.82 M/uL (4.63-6.08)
[2021-11-25 03:05] LABS: Albumin Globulin Ratio 0.7 (0.9-2); Albumin Level 2.9 gm/dl (3.4-5.0); BUN Creatinine Ratio 31.1 (10-20); Bilirubin,Total 1.5 mg/dl (0.2-1.0); Creatinine Clr Calc Pharmacy 16.1 ml/min; Est GFR (African American) 18.7 ml/min; Est GFR (Non-African American) 16.1 ml/min; Globulin 4.2 gm/dl (2.5-4.0); Potassium 5.1 mmol/L (3.5-5.1); Total Protein 7.1 gm/dl (6.0-8.3)
[2021-11-25] MEDS: methylPREDNISolone 125 MG in SYRINGE 0 ML IV SCH ×2 (05:41→14:26)
--- NOTE | 2021-11-25 06:52 | Communication Note ---
Date of Service: November 25, 2021 Notified by nursing that patient started coughing up scant blood. Chart reviewed. There is current concern for possible pulmonary hemorrhage; patient evaluated by pulmonology. INR was 4.5. Anticoagulation was discontinued and patient received total of 15mg Vitamin K for reversal. He also received blood transfusion yesterday. Patient currently on HFNC at 40 L/min. O2 sat 96%. BP 158/70. Resp 31. Patient is sitting up in bed. He does appear to be in respiratory distress with labored breathing and mild retractions, but per chart review patient with similar presentation yesterday. There are coarse breath sounds with rhonci bilaterally and poor airflow. Repeat labs were ordered/completed. INR currently at 1.9. Hgb 8.5 (was 9.2 after transfusion).
[2021-11-25] MEDS ORDERED: LANTUS PER UNIT CHARGE SQ ONE (07:45)
[2021-11-25] MEDS: INSULIN ASPART PER UNIT SC SCH ×4 (08:03→20:30)
[2021-11-25] MEDS: CYANOCOBALAMIN (B-12) 2,500 MCG TABLET SL SCH (08:04)
[2021-11-25] MEDS: amLODIPine BESYLATE 5 MG TAB PO SCH (08:04)
[2021-11-25] MEDS: FINASTERIDE 5 MG TAB PO SCH (08:04)
[2021-11-25] MEDS: METOPROLOL SUCC 50MG EXT REL TAB PO SCH (08:04)
[2021-11-25] MEDS: SODIUM BICARBONATE 650 MG TAB PO SCH ×2 (08:04→20:31)
[2021-11-25] MEDS: FOLIC ACID 1 MG TAB PO SCH (08:04)
[2021-11-25] MEDS: CEFEPIME 1,000 MG in SYRINGE 0 ML IV SCH ×2 (08:04→20:31)
[2021-11-25] MEDS: TAMSULOSIN HCL 0.4 MG CAP PO SCH (08:05)
[2021-11-25] MEDS: FUROSEMIDE 40 MG/4 ML VIAL IV SCH (08:06)
[2021-11-25 08:09] LABS: Base Excess ABG -10.4 mEq/L (-9-1.8); HCO3 ABG 16 mmol/L (19-24); Oxygen Saturation ABG 92.8 % (90-95); PCO2 ABG 35 mmHg (35-46); PO2 ABG 70 mmHg (80-95); pH ABG 7.26 (7.35-7.45)
[2021-11-25 08:10] LABS: Allen Test Pos (Pos)
[2021-11-25] MEDS ORDERED: PHYTONADIONE 5 MG in DEXTROSE 5% 50 ML IV ONE (08:30)
--- NOTE | 2021-11-25 08:30 | XRay Report ---
XR chest 1V portable CLINICAL HISTORY: Hypoxia. COMPARISON STUDY: Chest radiograph November 23, 2021. FINDINGS: Left subclavian pacemaker, prosthetic cardiac valve, median sternotomy wires and mediastina l surgical clips are noted. Old right-sided rib fractures are present. Bilateral pleural effusions ag ain noted. Moderate pulmonary edema is noted. This is slightly improved since prior exam. No pneumoth orax. IMPRESSION: 1. Moderate pulmonary edema, slightly improved since prior exam. 2. Persistent bilateral pleural effusions with associated bibasilar opacities. ACT 112: Negative or not required by law. Electronically signed by: Dominick Helms M.D. 11/25/2021 8:28 AM
--- NOTE | 2021-11-25 08:35 | Nephrology Progress Note ---
Date of Service November 25, 2021 Assessment & Plan (1) MARCO (acute kidney injury): Plan: * MARCO due to profound anemia * 11/21/21 Renal US - normal size kidneys, no hydronephrosis * Urine sediment negative for cellular casts * Moderate range proteinuria w/ UPCR 1.5 * Electrolyte balance is acceptable. No acute indication for [employer] * Patient's age and frailty make him a poor dialysis candidate * Monitor PRP (2) CKD (chronic kidney disease) stage 3, GFR 30-59 ml/min: Plan: * CKD with baseline creatinine ~1.5 mg/dL (3) Chronic heart failure with preserved ejection fraction: Plan: * Continue Lasix 40 mg IV BID. Patient is nonoliguric * 11/23/21 Echo: LVEF 65-70%, mod MR, RVSP 50-60 mm Hg, large L pleural effusion * h/o TAVR, atrial fibrillation * Patient is on high flow oxygen this am with labored breathing. Clinical condition is deteriorating. Primary service updated. Palliative care consultation and transition to comfort measures appears appropriate (4) Anemia: Plan: * Patient carries a diagonsis of "TACO - transfusion associated circulatory overload". 12/14 Echocardiogram shows high R sided heart pressure * 11/21 Epogen 10,000 units administered * Elevated ferritin precludes IV Venofer * BELLA will not correct anemia quickly enough * Given TACO, recommend discussion w/ blood bank as to whether small blood volumes can be provided for transfusion * Patient was transfused 1 U PRBC yesterday. Hgb improved from 6.6 to 8.5 (5) Osteomyelitis: Plan: * Antibiotic therapy narrowed to Unasyn. Admission and Anticipated Discharge Date Admission Date: November 20, 2021 Subjective Mr. Parker was evaluated in his hospital room this morning. BiPAP therapy was stopped and he remains on high flow oxygen. He was working to breath and unable to engage in conversation Review of Systems Review of Systems: Other (unobtainable due to labored breathing) Physical Exam Eyes: PERRL, conjunctivae normal, anicteric sclerae Neck: trachea midline, no thyromegaly Cardiovascular: Rate/Rhythm: regular rate and regular rhythm Extremities: no edema Gastrointestinal (Abdomen): normal bowel sounds, soft, nontender, no hepatosplenomegaly Results & Data ([facility]) Vital Signs (Past 12 Hours) Vital Signs Temp Pulse Pulse Resp BP BP Pulse Ox 10/03/22 07:59 61 22 91 11/25/21 07:56 36.3 C L 61 24 154/70 H 91 11/25/21 03:20 60 31 H 96 11/25/21 00:10 11/25/21 02:44 36.5 C 60 30 H 158/70 H 96 11/25/21 00:08 36.5 C 60 30 H 157/68 H 95 11/24/21 22:55 59 L 28 H 93 11/24/21 23:41 62 11/24/21 23:22 36.5 C 61 28 H 157/55 H 96 11/24/21 22:51 36.6 C 60 25 H 162/64 H 94 11/24/21 22:36 36.6 C 60 27 H 163/76 H 95 11/24/21 22:18 36.7 C 60 25 H 162/70 H 95 11/24/21 20:57 66 36 H 89 L O2 Del Method O2 Flow Rate FiO2 11/25/21 07:59 High Flow Nasal Cannula 40 100 11/25/21 07:56 High Flow Nasal Cannula 40 100 11/25/21 03:20 High Flow Nasal Cannula 40 90 11/25/21 00:10 High Flow Nasal Cannula 100 40 11/25/21 02:44 High Flow Nasal Cannula 11/25/21 00:08 High Flow Nasal Cannula 11/24/21 22:55 High Flow Nasal Cannula 40 100 11/24/21 23:41 11/24/21 23:22 High Flow Nasal Cannula 11/24/21 22:51 High Flow Nasal Cannula 11/24/21 22:36 High Flow Nasal Cannula 11/24/21 22:18 High Flow Nasal Cannula 40 100 11/24/21 20:57 High Flow Nasal Cannula 40 100 Laboratory Results Laboratory Tests 11/25/21 11/25/21 11/25/21 02:31 02:31 02:31 WBC 4.50 L Hgb 8.5 L Hct 26.0 L Plt Count 75 L Sodium 140 Potassium 5.1 Chloride 106 Carbon Dioxide 17 L BUN 102 H Creatinine 3.28 H Glucose 284 H Calcium 8.0 L Total Bilirubin 1.5 H AST 9 L ALT 8 Alkaline Phosphatase 74 B-Natriuretic Peptide 952 H Albumin 2.9 L PG Care Time/CCT Total # of Minutes Spent Total Time Spent with Patient: Total time spent is greater than 50% in coordination of care (as documented) at patient's floor/unit and/or counseling patient: Coding Level of Care Code 38082 Subseq Hosp Care Lvl 3 Diagnoses MARCO (acute kidney injury) N17.9 CKD (chronic kidney disease) stage 3, GFR 30-59 ml/min N18.30 Chronic heart failure with preserved ejection fraction I50.32 Anemia D64.9 Osteomyelitis M86.9
[2021-11-25 08:49] LABS: INR 1.6 (0.9-1.1); Prothrombin Time 16.4 Seconds (9.0-12.0)
[2021-11-25] MEDS ORDERED: FUROSEMIDE 40 MG/4 ML VIAL IV SCH (09:00)
--- NOTE | 2021-11-25 09:30 | Pulmonology Progress Note ---
Date of Service November 25, 2021 Assessment & Plan (1) Pulmonary edema: (2) Hemoptysis: (3) Acute hypoxemic respiratory failure: Plan Impression: 86-year-old male with valvular heart disease, pulmonary hypertension, diastolic dysfunction, chronic kidney disease anticoagulated admitted with toe osteomyelitis now with hypoxemic respiratory failure with diffuse pulmonary infiltrates. The differential would include hydrostatic pulmonary edema, pulmonary edema secondary to diastolic heart failure and valvular heart disease, as well as pulmonary hemorrhage. 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 We will follow them up. -- Hemoptysis Hold anticoagulation H&H stable Plan: In/out: -3.4 L since coming to the hospital ABG 11/25/2021: 7.26/35/70. Goes more towards metabolic acidosis with partial respiratory compensation Chest x-ray from today shows mild improvement compared to the 1 done on 11/23/2021 Bilateral alveolar opacities as well as bilateral pleural effusion still persist Continue with diuresis I will go down on Solu-Medrol to 125 mg every 12 I will add hypertonic saline nebulized twice a day and aggressive suctioning Interchange between BiPAP and high flow. Overall prognosis is guarded. Heading towards palliative care would be the appropriate care. Case discussed with BINH Myers as well as RT Alverto Please note the above document was generated using voice recognition software. It may contain grammatical, syntax or spelling errors.Any formal questions or concerns about the content, text or information contained within the body of this dictation should be directly addressed to the provider for clarification. Admission and Anticipated Discharge Date Admission Date: November 20, 2021 Subjective Seen and examined at bedside. Case was discussed with outgoing mounter automatic. Patient was 100% FiO2, 40 L high flow saturating 94% I was able to go down to 90% FiO2 and he was still saturating 92%. Unfortunately he is not answering much questions. He has respiratory distress As per the nurse patient has been unable to clear his phlegm Has been afebrile Review of Systems Review of Systems: All systems reviewed & are unremarkable except as noted in Subjective Physical Exam Physical Exam: Constitutional: In respiratory distress, frail-appearing HEENT: PERRLA Respiratory system: Decreased air entry bilaterally, no wheeze, no rhonchi, positive crackles bilateral lower lobes CVS: S1-S2 positive positive, 2 out of 6 murmur appreciated best at aorta Abdomen: Soft, nontender, nondistended, positive bowel sounds x4 Extremities: +2 pulses bilaterally radialis/ dorsalis pedis, no cyanosis, +1 pitting edema bilateral lower extremity Neuro: Awake, following minimal commands. Not answering any questions Psych: Flat mood and affect G/U: Positive [place] Skin: no rashes, warm and dry Lymphatic: no cervical or axillary lymphadenopathy Results & Data Results & Data ([facility]) Vital Signs (Past 12 Hours) Vital Signs Temp Pulse Pulse Resp BP BP Pulse Ox 11/25/21 07:59 61 22 91 11/25/21 07:56 36.3 C L 61 24 154/70 H 91 11/25/21 03:20 60 31 H 96 11/25/21 00:10 11/25/21 02:44 36.5 C 60 30 H 158/70 H 96 11/25/21 00:08 36.5 C 60 30 H 157/68 H 95 11/24/21 22:55 59 L 28 H 93 11/24/21 23:41 62 11/24/21 23:22 36.5 C 61 28 H 157/55 H 96 11/24/21 22:51 36.6 C 60 25 H 162/64 H 94 11/24/21 22:36 36.6 C 60 27 H 163/76 H 95 11/24/21 22:18 36.7 C 60 25 H 162/70 H 95 O2 Del Method O2 Flow Rate FiO2 11/25/21 07:59 High Flow Nasal Cannula 40 100 11/25/21 07:56 High Flow Nasal Cannula 40 100 11/25/21 03:20 High Flow Nasal Cannula 40 90 11/25/21 00:10 High Flow Nasal Cannula 100 40 11/25/21 02:44 High Flow Nasal Cannula 11/25/21 00:08 High Flow Nasal Cannula 11/24/21 22:55 High Flow Nasal Cannula 40 100 11/24/21 23:41 11/24/21 23:22 High Flow Nasal Cannula 11/24/21 22:51 High Flow Nasal Cannula 11/24/21 22:36 High Flow Nasal Cannula 11/24/21 22:18 High Flow Nasal Cannula 40 100 Laboratory Results 11/25/21 02:31 11/25/21 02:31 PG Care Time/CCT Total # of Minutes Spent Total Time Spent with Patient: Total time spent is greater than 50% in coordination of care (as documented) at patient's floor/unit and/or counseling patient: Coding Level of Care Code 70110 Subseq Hosp Care l 3 Diagnoses Pulmonary edema J81.1 Hemoptysis R04.2 Acute hypoxemic respiratory failure J96.01
[2021-11-25] MEDS ORDERED: SODIUM BICARBONATE IV ONE (10:45)
[2021-11-25] MEDS: SODIUM CHLOR 7% 4 ML NEB NEB SCH ×2 (12:31→19:53)
--- NOTE | 2021-11-25 14:33 | Palliative Care Consultation ---
Date of Consultation November 25, 2021 Assessment & Plan (1) Weakness: Progressive with acute on chronic illness. He would not be a good candidate for dialysis or surgery. (2) Palliative care encounter: I met with Flako's son, Brett, at bedside. He has a good understanding of his father's illness. He tells me that Flako has said multiple times in the past that he would not want extraordinary measures to prolong his life. He has previously stated that he would not want resuscitation or CPR. Family had decided on trial of bipap and continued medical management in the hope that he might show some improvement. Unfortunately, he has had progressive decline in renal and respiratory function. Mrs. Parker was recently diagnosed with covid and is unable to come to see Flako. She has deferred decisions to Brett, who is Flako's POA. Brett expressed some concern that ongoing care may be against Flako's wishes. We talked about option for symptom management and comfort focused care and what that would look like. We discussed use of medications for relief of dyspnea, anxiety, pain, secretions. Brett asked about Flako returning to [facility] with hospice. This could be an option, although my concern is that he may decline quickly if current treatment were withdrawn. Brett would like to discuss this further with his family before a final decision. (3) Acute on chronic heart failure with preserved ejection fraction: (4) Osteomyelitis: (5) Anemia: (6) MARCO (acute kidney injury): (7) Paroxysmal atrial fibrillation: History of Present Illness Reason for Consultation: goals of care Requesting Physician: Dr. Hsu Attending Physician: Nilton Hsu MD History of Present Illness 86 yo gentleman with multiple hospitalizations in the last few months who had been at [facility] prior to this admission. His past medical history includes CAD s/p CABG, TAVR, afib, HFpEF, diabetes, CKD and BPH. He presented with increased shortness of breath. He is currently being treated for osteomyelitis of the right great toe, acute hypoxic, hypercapnic respiratory failure. He has had anemia and thrombocytopenia and now has developed pulmonary hemorrhage, requiring hold on warfarin and Vitamin K administration. He has MARCO with progressive renal failure. He had been on bipap yesterday and is not on high flow O2. He is lethargic and does not respond to his name or questions. He does open his eyes and times and has a moist cough. Allergies Allergy/AdvReac Type Severity Reaction Status Date / Time Blood Transfusion AdvReac Intermediate TACO Uncoded 11/21/21 05:47 Home Medications Medication Instructions Recorded Confirmed Type finasteride 5 mg tablet 5 mg PO QAM 01/17/21 11/20/21 History metoprolol succinate 50 mg 50 mg PO QAM 01/17/21 11/20/21 History tablet,extended release 24 hr simvastatin 20 mg tablet 20 mg PO HS 01/17/21 11/20/21 History tamsulosin 0.4 mg capsule 0.4 mg PO QAM 01/17/21 11/20/21 History triamcinolone acetonide 0.1 % 1 applic topical BID Right Leg 10/01/21 11/20/21 History topical ointment Wound folic acid 1 mg tablet 1 mg PO QAM #30 tabs 10/07/21 11/20/21 Rx amlodipine 5 mg tablet 5 mg PO QAM 10/25/21 11/20/21 History amoxicillin 500 mg tablet 2,000 mg PO DIRECTED PRN 1 HOUR 10/25/21 11/20/21 History PRIOR TO DENTAL PROCEDURES. cyanocobalamin (vitamin B-12) 5,000 mcg PO QAM 10/25/21 11/20/21 History 5,000 mcg capsule warfarin 5 mg tablet See Rx Instructions .Route .COMPLEX 10/25/21 11/20/21 History furosemide 40 mg tablet 40 mg PO DAILY #60 tabs 11/11/21 11/20/21 Rx glipizide 5 mg tablet 5 mg PO BID 11/18/21 11/20/21 History Patient History Medical History Admitted to intensive care unit Anemia Anemia Anemia Anticoagulant long-term use Aortic stenosis BPH w urinary obs/LUTS Breath shortness CAD (coronary atherosclerotic disease) Chronic heart failure with preserved ejection fraction Colon cancer Coronary artery disease Dark stools Electrolyte abnormality Elevated troponin HTN (hypertension) Hypercholesterolemia Hypertension Hypoglycemia associated with diabetes Hypoxia Lower extremity edema Paroxysmal atrial fibrillation Subdural hematoma Vitamin B12 deficiency (dietary) anemia Weakness Surgical History H/O heart bypass surgery History of heart bypass surgery History of partial colectomy S/P TAVR (transcatheter aortic valve replacement) Status post evacuation of subdural hematoma Family History Other Family history non-contributory Social History Smoking Status: Former smoker Tobacco Type: Cigarettes Second Hand Exposure: No; Do You Dip or Chew Tobacco: No; Tobacco Cessation Education Requested by Patient: No Hx Alcohol Use: No Hx Substance Use: No Preferred Language: Mauritanian Communication Ability: Effective See Wheeler Required: No Beliefs That Will Affect Care: None marital status: Current Living Situation: Personal Care Facility current occupational status: employed and retired How many Children do You have: 3 Other Information That Helps Us Care for You: No Feels Safe at Home: Yes Safety Concerns: Feels Safe At This Time Assistive Devices: Cane, Walker and Wheelchair Review of Systems Review of Systems: Unobtainable due to reduced consciousness ESAS Dypsnea by observation 2/3 Pain by observation 1/3 PPS 20% Physical Exam Constitutional: + ill appearing ENMT: Mouth: + dry oral mucous membranes Respiratory: + uses accessory muscles and + tachypneic Cardiovascular: Rate/Rhythm: + irregularly irregular Gastrointestinal (Abdomen): nontender Musculoskeletal: Extremities: + muscle atrophy no edema Skin: warm and dry, dressing right great toe Results & Data ([facility]) Vital Signs (Past 12 Hours) Vital Signs Temp Pulse Resp BP BP Pulse Ox O2 Del Method 11/25/21 08:00 High Flow Nasal Cannula 11/25/21 11:50 97.3 F L 79 22 161/71 H 95 High Flow Nasal Cannula 11/25/21 11:49 60 20 91 High Flow Nasal Cannula 11/25/21 11:44 65 22 91 High Flow Nasal Cannula 11/25/21 07:59 61 22 91 High Flow Nasal Cannula 11/25/21 07:56 97.3 F L 61 24 154/70 H 91 High Flow Nasal Cannula 11/25/21 03:20 60 31 H 96 High Flow Nasal Cannula 11/25/21 02:44 97.7 F 60 30 H 158/70 H 96 High Flow Nasal Cannula O2 Flow Rate FiO2 11/25/21 08:00 100 40 11/25/21 11:50 40 100 11/25/21 11:49 40 90 11/25/21 11:44 40 90 10/03/22 07:59 40 100 11/25/21 07:56 40 100 11/25/21 03:20 40 90 11/25/21 02:44 PG Care Time/CCT Total # of Minutes Spent Total Time Spent: 62 Total Time Spent with Patient: Total time spent is greater than 50% in coordination of care (as documented) at patient's floor/unit and/or counseling patient:goals of care, symptom management, prognosis, hospice, family education and support Coding Level of Care Code 11824 Initial Inpt Care Lvl 2 Diagnoses Weakness R53.1 Palliative care encounter Z51.5 Acute on chronic heart failure with preserved ejection fraction I50.33 Osteomyelitis M86.9 Anemia D64.9 MARCO (acute kidney injury) N17.9 Paroxysmal atrial fibrillation I48.0
[2021-11-25] MEDS ORDERED: INSULIN ASPART PER UNIT SC SCH (15:00)
--- NOTE | 2021-11-25 15:12 | Pharmacy Report ---
Pharmacy Glycemic Short Note 2 - Date of Service November 25, 2021 - Glycemic Short BSG Results (Last 24 hours): 11/24/21 11/24/21 11/25/21 16:38 20:03 02:31 Glucose 284 H POC Glucose 136 H 173 H 11/25/21 11/25/21 11/25/21 07:48 07:50 12:10 Glucose POC Glucose 318 H* 304 H* 298 H OUTPATIENT ANTIDIABETIC REGIMEN: * Glipizide 5 mg PO BID * HbA1c 6.3% on 10/26/21 ASSESSMENT: 11/25/21 * Mr Parker's BSGs yesterday were [phone] mg/dL. Fasting today is 298 mg/dL. * Patient received 5 units of insulin yesterday (3 units of basal + 2 units of bolus). * Patient started on Solu-Medrol 125 mg IV q8 yesterday. * Will start with Lantus 8 units this morning. Patient previously tolerated this. Hesitant to utilize basal insulin heavily since patient well controlled on < 10 units of basal prior. * Tighten CF drastically to prevent hyperglycemia. Check at 1500 to ensure that patient's BSGs are trending downwards this afternoon. 11/22/21 * BSGs yesterday of 151, 121, 195, 175 mg/dL w/ fasting BSG of 217 mg/dL this morning * Will give basal this morning and use scaled dose this evening to likely provide increased daily basal * Insulin needs greater than expected given A1c on single oral agent and limited documented carbohydrates while inpatient * Possible stressors include infection (receiving Unasyn for osteomyelitis of toe) and MARCO * Not an ideal candidate for hemodialysis given multiple comorbidities/frailty - holding off on HD at this time * Kidney function stable at this time 11/20/21 * 86 yo M with well controlled T2DM on a single oral agent as an outpatient with recent prolonged admission to [facility] re-admitted on 11/20 for osteomyelitis, anemia, and MARCO * Previous admission reviewed - loose Novolog and hardly any basal insulin administered, although some AM fasting BSG's were above goal * Will start low dose Lantus x1 and Novolog regimen from prior admit, prior to discharge PLAN FOR INPATIENT GLYCEMIC CONTROL: * Hold outpatient oral diabetes medications * Basal insulin * Lantus 8 units SQ daily * Bolus insulin * NovoLog per scale ACHS or Q6hrs while NPO * Goal Range: Low 110 mg/dL - High 140 mg/dL * Correction Factor: 15 mg/dL/unit * Nutritional / Prandial insulin per carb ratio of 1 unit per 6 grams CHO consumed
--- NOTE | 2021-11-25 16:03 | Consultation ---
Date of Consultation November 25, 2021 Assessment & Plan (1) Anemia: (2) Thrombocytopenia: (3) Osteomyelitis: (4) Acute hypoxemic respiratory failure: (5) CKD (chronic kidney disease) stage 3, GFR 30-59 ml/min: Plan Elderly gentleman with multiple comorbidities who is currently being managed for acute respiratory failure secondary to pulmonary edema and pulmonary hemorrhage. Hematology was consulted for pancytopenia. His pancytopenia is most likely multifactorial. Anemia is due to renal disease and iron deficiency due to recent GI bleeding. Suspect that his thrombocytopenia is most likely due to splenomegaly with sequestration as CT imaging obtained earlier this year had revealed splenomegaly. Mild leukopenia due to acute illness/infection and splenomegaly. Based on review of labs, no reason to suspect underlying MDS/leukemia Hematology will sign off at this time. Please feel free to call if you have any further questions History of Present Illness Reason for Consultation: Pancytopenia Attending Physician: Nilton Hsu MD History of Present Illness 86-year-old gentleman with multiple comorbidities including coronary artery disease s/p CABG, diabetes mellitus, paroxysmal atrial fibrillation, CKD stage III, chronic anemia and heart failure with preserved ejection fraction and history of TAVR on chronic anticoagulation with warfarin. Patient was admitted to [facility] for right toe osteomyelitis, pressure ulcer and anemia. Of note, patient was discharged last month from [facility] after presenting with generalized weakness and iron deficiency anemia thought to be due to GI bleeding. During this current admission, he developed acute respiratory failure thought to be possibly due to pulmonary edema after transfusion for which he remains on 40 L/min high flow nasal cannula. He was also found to have pulmonary hemorrhage for which he received vitamin K. Hematology was consulted for pancytopenia. Could not obtain history from patient as he was unresponsive . Allergies Allergy/AdvReac Type Severity Reaction Status Date / Time Blood Transfusion AdvReac Intermediate TACO Uncoded 11/21/21 05:47 Home Medications Medication Instructions Recorded Confirmed Type finasteride 5 mg tablet 5 mg PO QAM 01/17/21 11/20/21 History metoprolol succinate 50 mg 50 mg PO QAM 01/17/21 11/20/21 History tablet,extended release 24 hr simvastatin 20 mg tablet 20 mg PO HS 01/17/21 11/20/21 History tamsulosin 0.4 mg capsule 0.4 mg PO QAM 01/17/21 11/20/21 History triamcinolone acetonide 0.1 % 1 applic topical BID Right Leg 10/01/21 11/20/21 History topical ointment Wound folic acid 1 mg tablet 1 mg PO QAM #30 tabs 10/07/21 11/20/21 Rx amlodipine 5 mg tablet 5 mg PO QAM 10/25/21 11/20/21 History amoxicillin 500 mg tablet 2,000 mg PO DIRECTED PRN 1 HOUR 10/25/21 11/20/21 History PRIOR TO DENTAL PROCEDURES. cyanocobalamin (vitamin B-12) 5,000 mcg PO QAM 10/25/21 11/20/21 History 5,000 mcg capsule warfarin 5 mg tablet See Rx Instructions .Route .COMPLEX 10/25/21 11/20/21 History furosemide 40 mg tablet 40 mg PO DAILY #60 tabs 11/11/21 11/20/21 Rx glipizide 5 mg tablet 5 mg PO BID 11/18/21 11/20/21 History Patient History Medical History Admitted to intensive care unit Anemia Anemia Anemia Anticoagulant long-term use Aortic stenosis BPH w urinary obs/LUTS Breath shortness CAD (coronary atherosclerotic disease) Chronic heart failure with preserved ejection fraction Colon cancer Coronary artery disease Dark stools Electrolyte abnormality Elevated troponin HTN (hypertension) Hypercholesterolemia Hypertension Hypoglycemia associated with diabetes Hypoxia Lower extremity edema Paroxysmal atrial fibrillation Subdural hematoma Vitamin B12 deficiency (dietary) anemia Weakness Surgical History H/O heart bypass surgery History of heart bypass surgery History of partial colectomy S/P TAVR (transcatheter aortic valve replacement) Status post evacuation of subdural hematoma Family History Other Family history non-contributory Social History Smoking Status: Former smoker Tobacco Type: Cigarettes Second Hand Exposure: No; Do You Dip or Chew Tobacco: No; Tobacco Cessation Education Requested by Patient: No Hx Alcohol Use: No Hx Substance Use: No Preferred Language: Nauruan Communication Ability: Effective It Desktop Support Technician Required: No Beliefs That Will Affect Care: None marital status: Current Living Situation: Personal Care Facility current occupational status: employed and retired How many Children do You have: 3 Other Information That Helps Us Care for You: No Feels Safe at Home: Yes Safety Concerns: Feels Safe At This Time Assistive Devices: Cane, Walker and Wheelchair Review of Systems Review of Systems: Unobtainable due to cognitive status Physical Exam Constitutional: + altered mental status Eyes: PERRL, conjunctivae normal, anicteric sclerae Respiratory: + respiratory distress and + labored breathing Cardiovascular: Rate/Rhythm: + irregularly irregular Gastrointestinal (Abdomen): normal bowel sounds, soft, nontender, no hepatosplenomegaly Results & Data ([facility]) Vital Signs (Past 12 Hours) Vital Signs Temp Pulse Resp BP Pulse Ox O2 Del Method O2 Flow Rate 11/25/21 15:31 36.4 C L 60 22 171/68 H 91 High Flow Nasal Cannula 40 11/25/21 15:26 20 91 High Flow Nasal Cannula 40 11/25/21 08:00 High Flow Nasal Cannula 100 11/25/21 11:50 36.3 C L 79 22 161/71 H 95 High Flow Nasal Cannula 40 11/25/21 11:49 60 20 91 High Flow Nasal Cannula 40 11/25/21 11:44 65 22 91 High Flow Nasal Cannula 40 11/25/21 07:59 61 22 91 High Flow Nasal Cannula 40 11/25/21 07:56 36.3 C L 61 24 154/70 H 91 High Flow Nasal Cannula 40 FiO2 11/25/21 15:31 90 11/25/21 15:26 90 11/25/21 08:00 40 11/25/21 11:50 100 11/25/21 11:49 90 11/25/21 11:44 90 11/25/21 07:59 100 11/25/21 07:56 100 Laboratory Results CBC on 11/25/2021 significant for white cell count of 4.5, hemoglobin of 8.5, hematocrit 26 and plate count of 75,000 PG Care Time/CCT Total # of Minutes Spent Total Time Spent with Patient: Total time spent is greater than 50% in coordination of care (as documented) at patient's floor/unit and/or counseling patient: Coding Level of Care Code 53743 Inpt Consult Level 4 Diagnoses Anemia D64.9 Thrombocytopenia D69.6 Osteomyelitis M86.9 Acute hypoxemic respiratory failure J96.01 CKD (chronic kidney disease) stage 3, GFR 30-59 ml/min N18.30
--- NOTE | 2021-11-25 20:24 | Hospitalist Progress Note ---
Date of Service November 25, 2021 Assessment & Plan (1) Acute respiratory failure with hypoxia and hypercapnia: Plan: Suspected secondary to pulmonary edema and fluid overload, difficult to rule out PNA however procalcitonin previously negative however sputum production worsening, possible pulmonary hemorrhage Increased O2 requirement, worsening hypoxia MRSA nasal swab negative Continue cefepime IV and doxycycline PO Repeat procalcitonin normal, sputum culture Retest for COVID-10, RSV and influenza negative Stop IV lasix TTE 08/27/2021: EF 65%, grade 2 diastolic dysfunction, dilated RA, s/p TAVR with elevated flow velocities and prosthesis stenosis versus valve mismatch, no AI, mild to moderate MR and TR, moderate pulmonary hypertension Planning on continuing treatment at this time but transitioning to comfort care tomorrow. Discussed with night resident and if patient declines overnight will transition to comfort care at that time. No further labs warranted. (2) Pulmonary hemorrhage: Plan: Suspected given unchanged CXR and O2 requirement worsening despite successful diuresis Anticoagulation will be reversed. Appreciate heme consult - discussed with Dr Jovani Padgett consulted and starting on empiric IV steroids rather than more invasive bronchoscopy to confirm diagnosis (3) Pulmonary edema: (4) Acute on chronic heart failure with preserved ejection fraction: Plan: Given increasing sodium, concern we are causing some intravascular depletion and likely need to reduce rate of diruresis. Lasix discontinued. Planning on transitioning to comfort care tomorrow. (5) Toe osteomyelitis, right: Plan: - XRright foot: Diffuse tissue swelling edema, bony defect with corticated margins of the lateral first distal phalangeal tuft consistent with osteo-. Multifocal osteoarthritis -Prior culture positive for staph aureus, sensitive to clinda/Dapto/Vanco and Enterococcus intermediate resistance to Cipro On admission empirically placed on daptomycin for staph/Enterococcus coverage. Clinically improving, narrowed to Unasyn -MRI unable to be performed due to incompatible ICD leads 1. There is diffuse soft tissue edema throughout the forefoot. Correlate clinically for evidence of cellulitis. 2. There is no evidence of organized fluid collection to indicate abscess on this unenhanced examination. 3. Erosive change is again suggested involving the tuft of the first distal phalanx. This is suspicious for osteomyelitis and clinical correlation will be required. 4. No additional foci of bony erosion are suspected. No acute fracture is seen. Anticipate 6-8week course of treatment for osteo - Wound consulted (6) MARCO (acute kidney injury): Plan: Creatinine baseline approximately 1.41.7 DDx includes ATN/cardiorenal Acutely elevated to 3.26 on admission, Cr stable but BUN continues to trend up potentially causing the patient's lethargy Follow creatinine daily, nephrology consulted. - Trend BMP (7) CKD (chronic kidney disease) stage 3, GFR 30-59 ml/min: (8) DM II (diabetes mellitus, type II), controlled: Plan: BSG AC/at bedtime A1c this past month well controlled Continue SSI (9) Hypercholesterolemia: Plan: Continue simvastatin (10) S/P TAVR (transcatheter aortic valve replacement): Plan: On warfarin Goal INR 2.5-3.5, however given concern for pulmonary hemorrhage, vitamin K given to reverse. INR 1.6 (11) Stage III pressure ulcer of left buttock: Plan: continue antibiotics as above (12) Stage III pressure ulcer of right buttock: (13) Venous stasis ulcer: (14) Urinary retention: Plan: hankins catheter in place (15) Anemia: Plan: Hemoglobin 6.8 on admission, gradual downtrend last to 7.1 on 11/18, 8.0 11/08 Continue B12/folate supplementation Hemoglobin improved to 9.2 after 1 unit packed RBCs however no improvement in oxygenation with this Plan DVT prophylaxis: contraindicated in setting of suspected pulmonary hemorrhage Diet: Diabetic, low-salt CODE STATUS: DNR/DNI Admission and Anticipated Discharge Date Admission Date: November 20, 2021 Subjective Patient increasingly more short of breath. No significant improvement over multiple days at this point and we have gone past his euvolemic state and still requiring high flow oxygen without improvement. Discussed with family at bedside and wish to continue high flow oxygen at this time and planning on transitioning to comfort care tomorrow. Review of Systems Review of Systems: Unobtainable due to cognitive status Physical Exam Constitutional: + altered mental status Respiratory: + respiratory distress and + labored breathing Gastrointestinal (Abdomen): Percussion/Palpation: abdomen soft; abdomen nontender Results & Data Results & Data ([facility]) Vital Signs (Past 12 Hours) Vital Signs Temp Pulse Pulse Resp BP Pulse Ox O2 Del Method 11/25/21 19:55 64 35 H 94 High Flow Nasal Cannula 11/25/21 16:00 60 10/03/22 15:31 36.4 C L 60 22 171/68 H 91 High Flow Nasal Cannula 11/25/21 15:26 20 91 High Flow Nasal Cannula 11/25/21 11:50 36.3 C L 79 22 161/71 H 95 High Flow Nasal Cannula 11/25/21 11:49 60 20 91 High Flow Nasal Cannula 11/25/21 11:44 65 22 91 High Flow Nasal Cannula O2 Flow Rate FiO2 11/25/21 19:55 40 90 11/25/21 16:00 11/25/21 15:31 40 90 11/25/21 15:26 40 90 11/25/21 11:50 40 100 11/25/21 11:49 40 90 11/25/21 11:44 40 90 PG Care Time/CCT Total # of Minutes Spent Total Time Spent with Patient: Total time spent is greater than 50% in coordination of care (as documented) at patient's floor/unit and/or counseling patient: Coding Level of Care Code 11352 Subseq Hosp Care Lvl 3 Diagnoses Acute respiratory failure with hypoxia and hypercapnia J96.01; J96.02 Pulmonary hemorrhage R04.89 Pulmonary edema J81.1 Acute on chronic heart failure with preserved ejection fraction I50.33 Toe osteomyelitis, right M86.9 MARCO (acute kidney injury) N17.9 CKD (chronic kidney disease) stage 3, GFR 30-59 ml/min N18.30 DM II (diabetes mellitus, type II), controlled E11.9 Hypercholesterolemia E78.00 S/P TAVR (transcatheter aortic valve replacement) Z95.2 Stage III pressure ulcer of left buttock L89.323 Stage III pressure ulcer of right buttock L89.313 Venous stasis ulcer I83.009; L97.909 Urinary retention R33.9 Anemia D64.9
[2021-11-25] MEDS ORDERED: methylPREDNISolone 125 MG in SYRINGE 0 ML IV SCH (21:00)
[2021-11-26] MEDS: INSULIN ASPART PER UNIT SC SCH ×2 (00:17→03:39)
[2021-11-26] MEDS ORDERED: MoRPHine SULFATE 5 MG/0.25 ML UDP PO PRN (02:22)
[2021-11-26] MEDS ORDERED: GLYCOPYRROLATE 0.2 MG/ML VIAL IV PRN (02:22)
[2021-11-26] MEDS ORDERED: ONDANSETRON INJ 2 MG/ML 2 ML VIAL IV PRN (02:22)
[2021-11-26] MEDS ORDERED: ACETAMINOPHEN 650 MG SUPP PR PRN (02:22)
[2021-11-26] MEDS ORDERED: LORazepam 0.5 MG in SYRINGE 0 ML IV PRN (02:22)
[2021-11-26] MEDS ORDERED: ONDANSETRON 4 MG OD TAB SL PRN (02:22)
[2021-11-26] MEDS ORDERED: HYDROmorphone INJ 0.5 MG/0.5 ML SYR IV PRN (02:56)
--- NOTE | 2021-11-26 03:02 | Communication Note ---
Date of Service: November 26, 2021 Patient with rapid decline overnight. Now tachypneic with shallow respirations. Patient unresponsive to verbal stimuli; does not open eyes. Son was called who returned to patient's bedside. Agreement to proceed with comfort measures at this time. TRAINING FACILITATOR orders placed. Resident Activity Tracking Resident Involvement: Resident Care Provided Care Provided: Adult [facility] Medicine
--- NOTE | 2021-11-26 05:11 | Death Pronouncement Note ---
Date of Service November 26, 2021 Pronouncement Note Admission Date Admission Date: November 20, 2021 Date and Time of Date of : 11/26/21 Time of : 03:41 Contributing Factors (1) Acute respiratory failure with hypoxia and hypercapnia: (2) Pulmonary hemorrhage: (3) Pulmonary edema: (4) Acute on chronic heart failure with preserved ejection fraction: (5) Toe osteomyelitis, right: (6) MARCO (acute kidney injury): (7) CKD (chronic kidney disease) stage 3, GFR 30-59 ml/min: (8) DM II (diabetes mellitus, type II), controlled: (9) Hypercholesterolemia: (10) S/P TAVR (transcatheter aortic valve replacement): (11) Stage III pressure ulcer of left buttock: (12) Stage III pressure ulcer of right buttock: (13) Venous stasis ulcer: (14) Urinary retention: (15) Anemia: Additional Data Confirmation of : no pulse, no respirations, no heart sounds and pupils fixed and dilated Family: at bedside Attending physician: Nilton Hsu MD Resident Activity Tracking Resident Involvement: Resident Care Provided Care Provided: Adult Hospital Medicine
--- NOTE | 2021-11-26 16:30 | Discharge Summary ---
Date of Service November 26, 2021 Admission HPI Per Admitting Provider Patient is a 86-year-old male with a past medical history of CAD s/p CABG, heart failure with preserved ejection fraction, paroxysmal atrial fibrillation, DM, TAVR, anticoagulation use, pacemaker placement, CKD, AAS, BPH with LUTS, hypertension, hypercholesterolemia, and anemia who presents from wound care with pressure ulcers, diabetic infected ulcer of the right toe, and anemia less than 7. Was recently discharged 11/11/2021 for generalized weakness and symptomatic anemia 2/2 iron deficiency with history of GI bleeding. At that admission patient had represented after a discharge 10/07 after being restarted on warfarin and he was unable to make a capsule endoscopy outpatient GI follow-up. During that admission Hemoccult was negative. Is been recommended to not hold warfarin unless absolutely necessary due to high risk of both with aortic stenosis, TAVR with elevated gradients, and history of A. fib. R foot 1st/2nd toe warmth/pain. Buttock wound cultures. ER at [facility] concerned for MRSA NO O2 use at home. +Sob, no chest pain. No fevers or chills. -N/-V/-D. Has not been eating well. C diff negative at [facility]. ?prilosec for GERD/appetite at [facility] but hasn't taken yet. Feels globally poor and with reduced appetite. Hx of anemia. No bleeding at [facility]. No bloody BMS. +diarrhea at [facility], not on iron. FOBT. +lightheaded, no syncope. +long cough, no change, no change in sputum production. COnstant clear sputum production. R>L leg swelling at basline, no recent change. Medical History: Reviewed Medications: Reviewed Surgical History: Reviewed Allergies: Reviewed Social History: No tobacco or alcohoul use. Code Status: DNR?DNI Principal Diagnosis Acute hypoxic respiratory failure with hypoxia and hypercapnia Pulmonary hemorrhage Acute on chronic heart failure with preserved ejection fraction Contributing factors: Pulmonary edema, anticoagulation with history of TAVR Discharge Exam See Prounouncement Note Discharge Data Allergies Allergy/AdvReac Type Severity Reaction Status Date / Time Blood Transfusion AdvReac Intermediate TACO Uncoded 11/21/21 05:47 Consultations 11/20/21 16:25 ED Decision to Admit Stat 11/21/21 05:17 Consult Nephrology Routine 11/24/21 10:29 Consult Pulmonology Routine 11/24/21 18:43 Consult Hematology Routine 11/25/21 09:00 Consult Palliative Care Routine Ordered Studies 11/20/21 18:12 CT foot RT wo con Urgent 11/21/21 12:36 US renal/blad retro comp Routine 11/22/21 14:44 US arterial duplex LE BI Routine Hospital Course (1) Acute respiratory failure with hypoxia and hypercapnia: Due to: Acute hypoxic respiratory failure with hypoxia and hypercapnia 2/2 Pulmonary hemorrhage 2/2 Acute on chronic heart failure with preserved ejection fraction 2/2 Contributing factors: Pulmonary edema, anticoagulation with history of TAVR 2/2 Date of : 11/26/21 Time of : 03:41 Suspected secondary to pulmonary edema and fluid overload, difficult to rule out PNA however procalcitonin previously negative however sputum production worsening, possible pulmonary hemorrhage Increased O2 requirement, worsening hypoxia MRSA nasal swab to assess need for vancomycin/linezolid Will broaden antibiotics due to brown sputum while also keeping fluid to a minimum - cefepime IV and doxycycline PO Repeat procalcitonin normal, sputum culture Retest for COVID-10, RSV and influenza Continue Lasix to diurese per nephrology guidance, can likely start to reduce dose as long as I&Os remain negative, will continue on Lasix 40mg IV daily TTE 08/27/2021: EF 65%, grade 2 diastolic dysfunction, dilated RA, s/p TAVR with elevated flow velocities and prosthesis stenosis versus valve mismatch, no AI, mild to moderate MR and TR, moderate pulmonary hypertension (2) Pulmonary hemorrhage: Suspected given unchanged CXR and O2 requirement worsening despite successful diuresis Anticoagulation will be reversed. Will consult hematology regarding thrombocytopenia. Pulm consulted and starting on empiric IV steroids rather than more invasive bronchoscopy to confirm diagnosis INR reversed with 10mg IV vitamin K, will repeat this afternoon to determine if further vitamin K warranted (3) Pulmonary edema: (4) Acute on chronic heart failure with preserved ejection fraction: Given increasing sodium, concern we are causing some intravascular depletion and likely need to reduce rate of diruresis. Will decrease Lasix to 40mg IV daily. Aim lower daily diuresis of 500ml/day. (5) Toe osteomyelitis, right: - XRright foot: Diffuse tissue swelling edema, bony defect with corticated margins of the lateral first distal phalangeal tuft consistent with osteo-. Multifocal osteoarthritis -Prior culture positive for staph aureus, sensitive to clinda/Dapto/Vanco and Enterococcus intermediate resistance to Cipro On admission empirically placed on daptomycin for staph/Enterococcus coverage. Clinically improving, narrowed to Unasyn -MRI unable to be performed due to incompatible ICD leads 1. There is diffuse soft tissue edema throughout the forefoot. Correlate clinically for evidence of cellulitis. 2. There is no evidence of organized fluid collection to indicate abscess on this unenhanced examination. 3. Erosive change is again suggested involving the tuft of the first distal phalanx. This is suspicious for osteomyelitis and clinical correlation will be required. 4. No additional foci of bony erosion are suspected. No acute fracture is seen. Anticipate 6-8week course of treatment for osteo - Wound consulted (6) MARCO (acute kidney injury): Creatinine baseline approximately 1.41.7 DDx includes ATN/cardiorenal Acutely elevated to 3.26 on admission, Cr stable but BUN continues to trend up potentially causing the patient's lethargy Follow creatinine daily, nephrology consulted. - Trend BMP (7) CKD (chronic kidney disease) stage 3, GFR 30-59 ml/min: (8) DM II (diabetes mellitus, type II), controlled: BSG AC/at bedtime A1c this past month well controlled Continue SSI Follow-up for SGLT2 as outpatient, prior GLP1 discontinue due to hypoglycemia (9) Hypercholesterolemia: Continue simvastatin (10) S/P TAVR (transcatheter aortic valve replacement): On warfarin Goal INR 2.5-3.5, however given concern for pulmonary hemorrhage will give vitamin K to reverse this (11) Stage III pressure ulcer of left buttock: continue antibiotics as above (12) Stage III pressure ulcer of right buttock: (13) Venous stasis ulcer: (14) Urinary retention: hankins catheter in place (15) Anemia: Hemoglobin 6.8 on admission, gradual downtrend last to 7.1 on 11/18, 8.0 11/08 Continue B12/folate supplementation Hemoglobin decreased to 6.6 today. Given current fluid status much improved will transfuse 1 unit of blood and repeat H&H this afternoon Plan DVT prophylaxis: INR supratherapeutic Diet: Diabetic, low-salt CODE STATUS: DNR/DNI Total Time Total Time Spent Total Time Spent (In Minutes): Total time spent reviewing documentation and completing discharge summary and summary online approximately 20 minutes. Patient was not examined as part of this time spent as past overnight, for physical exam see communication report and note from pronouncing physician. Discharge Plan Discharge Items Patient Disposition: Other Date/Time: 11/26/21 03:41 Coding Level of Care Code D/C DAY MANAGEMENT <30 MINS Diagnoses Acute respiratory failure with hypoxia and hypercapnia J96.01; J96.02 Pulmonary hemorrhage R04.89 Pulmonary edema J81.1 Acute on chronic heart failure with preserved ejection fraction I50.33 Toe osteomyelitis, right M86.9 MARCO (acute kidney injury) N17.9 CKD (chronic kidney disease) stage 3, GFR 30-59 ml/min N18.30 DM II (diabetes mellitus, type II), controlled E11.9 Hypercholesterolemia E78.00 S/P TAVR (transcatheter aortic valve replacement) Z95.2 Stage III pressure ulcer of left buttock L89.323 Stage III pressure ulcer of right buttock L89.313 Venous stasis ulcer I83.009; L97.909 Urinary retention R33.9 Anemia D64.9
[2021-12-02 02:57] LABS: ANCA Screen Negative (Negative); Anti Nuclear Antibody Screen NEGATIVE (NEGATIVE); Anti-Glom Basement Antibody <1.0 AI (<1.0); C-Reactive Protein High Sens. >10.0 mg/L; Myeloperoxidase Ab <1.0 AI (<1.0); Proteinase-3 AB <1.0 AI (<1.0)
== END 2021-11-26 04:35 | disposition expired | DRG 637 ==
LOC: ED 14:17 → SUATTDRO 17:07 → EDINP 17:07 → 2W 19:20 → 2S 11-21 06:38